=== PATIENT | male | born 1995 | race African-American/Black ===

== ENCOUNTER 2018-09-08 19:10 | Inpatient (IN) | payer OTHER ==
[~2018-09-08] VITALS: Ht 180.3 cm; Wt 46.3 kg
[2018-09-08 22:30] VITALS: BP 102/81
--- NOTE | 2018-09-08 22:30 | NUR ---
RECEIVED PATIENT FROM [facility], REPORT FROM GÉNESIS RICHARDSON. PATIENT IS AWAKE, ALERT, ORIENTED X 4, HAS ALLERGIES TO MILK, MELONS, AND ONIONS. PATIENT IS BEDBOUND, ON ROOM AIR, HAS RIGHT IJ TRIPLE LUMEN, PATIENT CAN SWALLOW BUT HAS VERY POOR APPETITE. PATIENT HAS BILATERAL LOWER EXTREMITY OPEN WOUNDS PHOTOS ARE TAKEN AND CHARTED, PERITONEAL ABSCESS/SACRAL WOUNDS (PATIENT REFUSED TO BE TURNED FOR PHOTOS DT SEVERE PAIN), HAS LEFT ABDOMINAL COLOSTOMY, RIGHT BELOW KNEE AMPUTATION, ISOLATION FOR POSITIVE MDRO IN WOUNDS, RECTUM; PSUDOMONAS IN SPUTUM AND WOUND. VITAL SIGNS ARE: BP 102/81, HR 151, T 98, O2 98%, RR 19. PATIENT COMPLAINS OF GENERALIZED BODY PAIN, MOSTLY ON LEGS /. WILL NOTIFY MD FOR FURTHER ORDERS, AND WILL MONITOR PATIENT THROUGHOUT SHIFT.
--- NOTE | 2018-09-08 23:12 | NUR ---
RECEIVED TELEPHONE ORDERS FROM DR. GREEN, ORDERED AND IMPLEMENTED. ADMINISTERED IV PUSH PAIN MEDICATION ORDERED, PATIENT TOLERATED IT WELL. PATIENT IS TO BE NPO AFTER MIDNIGHT. TPN INFUSION IS BEING CONTINUED USING THE TPN BAG FROM [facility]. PER MOTHER'S CONCERN, IF PATIENT DOES NOT GET TPN, BLOOD SUGAR GOES DOWN THE PATIENT HAS VERY POOR APPETITE. CHECKED BLOOD SUGAR - 97. WILL CONTINUE TO MONITOR PATIENT.
[2018-09-08] MEDS ORDERED: HYDROmorphone PFS 2 MG/ML SYR ONE (23:20)
[2018-09-09] MEDS ORDERED: HYDROmorphone PFS 4 MG/ML SYR IVP PRN (01:10)
[2018-09-09] MEDS ORDERED: HYDROmorphone PFS 2 MG/ML SYR ONE (01:32)
--- NOTE | 2018-09-09 01:33 | NUR ---
PATIENT COMPLAINS OF BLE PAIN 10/19. ADMINISTERED IV PUSH PAIN MEDICATION ORDERED. PATIENT TOLERATED IT WELL.
--- NOTE | 2018-09-09 03:34 | NUR ---
PATIENT WOKE UP FROM SEVERE BODY PAIN 10/19. ADMINISTERED IV PUSH PAIN MEDICATION ORDERED. WILL CONTINUE TO MONITOR PATIENT.
[2018-09-09] MEDS: HYDROmorphone PFS 2 MG/ML SYR IVP PRN ×4 (03:35→10:30)
[2018-09-09] MEDS: NACL 0.9% 1,000 ML IV SCH ×2 (03:38→22:58)
[2018-09-09] MEDS ORDERED: [UNRECOGNIZED DRUG - CODE] IV (04:39)
--- NOTE | 2018-09-09 05:48 | NUR ---
PATIENT COMPLAINS OF SEVERE BODY PAIN 10/10. ADMINISTERED IV PUSH PAIN MEDICATION ORDERED. PATIENT'S O2 SATURATION IS 98%, RR 16. WILL CONTINUE TO MONITOR PATIENT.
[2018-09-09] MEDS: BLOOD GLUCOSE MONITORING 1 DEV DEV FS SCH ×3 (06:00→18:51)
[2018-09-09] MEDS ORDERED: INSULIN LISPRO SLIDING SCALE 100 UNITS/ML VIAL SUBQ PRN (06:05)
[2018-09-09] MEDS ORDERED: DEXTROSE 50% 50 ML SYR IVP PRN (06:05)
[2018-09-09 07:17] LABS: PROTHROMBIN TIME 10.9 secs (10.8-13.4)
[2018-09-09 07:24] LABS: HEMATOCRIT 27.7 % (36-52); HEMOGLOBIN 8.9 g/dL (12.0-18.0); MEAN CORPUSCULAR HEMOGLOBIN 28 pg (27-31); MEAN CORPUSCULAR HGB CONC 32 g/dL (33-37); MEAN CORPUSCULAR VOLUME 87.2 fL (80-94); PLATELET COUNT (AUTO) 464 K/uL (140-450); RED BLOOD CELL COUNT(AUTO) 3.18 MIL/uL (4.20-6.10); RED CELL DISTRIBUTION WIDTH 17.1 % (11.6-13.7); WHITE BLOOD COUNT (AUTO) 8.9 K/uL (4.8-10.8)
[2018-09-09 07:27] LABS: ALBUMIN 1.3 g/dL (3.4-5.0); ANION GAP 11.4 (8-16); CARBON DIOXIDE 25.7 mmol/L (21-32); CREATININE 0.8 mg/dL (0.7-1.3); POTASSIUM 4.1 mmol/L (3.5-5.1); TOTAL BILIRUBIN 0.2 mg/dL (0.0-1.0)
--- NOTE | 2018-09-09 07:30 | NUR ---
RECEIVED BEDSIDE REPORT FROM GÉNESIS RAMIREZ. PT STABLE, AWAKE, ALERT AND ORIENTED X4. PT COMPLAINING OF BLE PAIN, WILL ADMINISTER MEDICATION. NO REDNESS, SWELLING, OR INFLAMMATION NOTED ON IV SITE. CALL CONN WITHIN REACH. BED IN LOWEST POSITION. MOTHER AT THE BEDSIDE. SAFETY MEASURES IN PLACE. PLAN OF CARE REVIEWED. PER PM RN, PT REFUSED TO BE TURNED. WILL CONTINUE TO MONITOR.
--- NOTE | 2018-09-09 07:30 | NUR ---
CALLED AND NOTIFIED DR. MARTIN RE: MEDICATION RECONCILIATION. PER MD, CONTINUE TPN, AND PAIN MEDICATIONS, WILL DO MED RECON DURING VISIT. ENDORSED TO AM SHIFT RNNAVYA.
[2018-09-09 08:00] VITALS: BP 107/56
--- NOTE | 2018-09-09 08:19 | NUR ---
ADMINISTERED PRN DILAUDID FOR PT C/O 10/10 BLE PAIN. PT TOLERATED WELL. WILL CONTINUE TO MONITOR.
--- NOTE | 2018-09-09 08:29 | NUR ---
PATIENT HAS BEEN SCREENED AND CATEGORIZED HIGH NUTRITION RISK. PATIENT WILL BE SEEN WITHIN 1-2 DAYS OF ADMISSION. 09/09/18-09/10/[address]
[2018-09-09 09:02] LABS: LYMPHOCYTES % (MANUAL) 18 % (20-46); MONOCYTES % (MANUAL) 17 % (5-12)
[2018-09-09 09:03] LABS: BASOPHILS % (MANUAL) 0 % (0-2); EOSINOPHILS % (MANUAL) 0 % (0-4)
--- NOTE | 2018-09-09 09:08 | NUR ---
RECEIVED TELEPHONE ORDER FROM DR CAICEDO TO OBTAIN CONSENT FOR DRESSING CHANGE OF RIGHT AND LEFT LOWER LEG WOUNDS UNDER ANESTHESIA.
--- NOTE | 2018-09-09 10:31 | NUR ---
ADMINISTERED PRN DILAUDID FOR 10/10 BLE PAIN. PT TOLERATED WELL. WILL CONTINUE TO MONITOR.
--- NOTE | 2018-09-09 10:41 | NUR ---
RECEIVED SURGICAL CONSENT FROM PT'S MOTHER. Addendum: 09/09/18 at 1104 by Abrahan Ibarra RN MOTHER, AAMIR.
--- NOTE | 2018-09-09 12:35 | NUR ---
PT WAS TAKEN TO THE OR FOR DRESSING CHANGE.
[2018-09-09] MEDS ORDERED: PROPOFOL 200 MG/20 ML VIAL IV ONE (12:43)
[2018-09-09] MEDS ORDERED: SEVOFLURANE 250 ML BTL INH ONE (12:43)
[2018-09-09] MEDS ORDERED: MEPERIDINE 50 MG/ML SYR ONE ×2 (12:56→13:39)
[2018-09-09] MEDS ORDERED: fentaNYL 0.05 MG/ML VIAL ONE (12:56)
[2018-09-09] MEDS ORDERED: MIDAZOLAM 2 MG/2 ML VIAL ONE (12:56)
[2018-09-09] MEDS: LACTATED RINGERS 1,000 ML IV SCH ×2 (13:17→21:51)
[2018-09-09] MEDS ORDERED: HYDROmorphone 1 MG/ML AMP IVP PRN (13:20)
[2018-09-09] MEDS ORDERED: MEPERIDINE 25 MG/ML SYR IVP PRN (13:20)
[2018-09-09] MEDS ORDERED: diphenhydrAMINE 50 MG/ML VIAL IVP PRN (13:20)
[2018-09-09] MEDS ORDERED: ONDANSETRON 4 MG/2 ML VIAL IVP PRN (13:20)
--- NOTE | 2018-09-09 13:29 | NUR ---
SW attempted to conduct assessment with patient. However, per nursing staff, patient was in operating room. SW will follow up at a later time.
--- NOTE | 2018-09-09 13:40 | NUR ---
RECEIVED TELEPHONE DISCHARGE ORDER FROM DR GAO. WILL PUT IN ORDER. Addendum: 09/09/18 at 1505 by Abrahan Ibarra RN THIS DOCUMENTATION IS FOR ANOTHER PATIENT.
--- NOTE | 2018-09-09 14:20 | NUR ---
PT CAME BACK FROM OR. VITAL SIGNS TAKEN, PT STABLE. NO SIGNS OF DISTRESS NOTED. MOTHER AT THE BEDSIDE.
[2018-09-09 16:00] VITALS: BP 95/53
--- NOTE | 2018-09-09 16:20 | NUR ---
VITAL SIGNS TAKEN, PT STABLE. NO OTHER NEEDS AT THIS TIME.
--- NOTE | 2018-09-09 16:35 | NUR ---
09/09/18 RD INITIAL ASSESSMENT COMPLETED PLEASE REFER TO NUTRITION ASSESSMENT UNDER CARE ACTIVITY FOR ESTIMATED NUTRITIONAL NEEDS. 1.CONTINUE TPN AND REGULAR DIET TOLERATED 2. RECOMMEND ADDING PROSOURCE WITH MEALS 3. ENCOURAGED PT TO REQUEST FOOD DESIRED TO INCREASE ENERGY INTAKE 4. RD TO FOLLOW-UP 2-3 DAYS, HIGH RISK ALEXEI JOHNSTON, RD
--- NOTE | 2018-09-09 18:00 | NUR ---
BG CHECKED, 94, NO COVERAGE NEEDED. BP RECHECKED, 97/57, HR 116. OFFERED PATIENT NORCO FOR PAIN, PT REFUSED. WILL CONTINUE TO MONITOR.
--- NOTE | 2018-09-09 19:15 | NUR ---
ENDORSED PT TO RN MAY FOR CONTINUITY OF CARE. PT STABLE.
--- NOTE | 2018-09-09 19:16 | NUR ---
RECEIVED REPORT FROM AM NURSE. PT IN BED, AWAKE, ALERT AND ORIENTED. VISIBLE CHEST RISE AND FALL ON ROOM AIR. PT ABLE TO ANSWER QUESTIONS AND FOLLOW COMMANDS. PT STATING 8/10 PAIN LEVEL. BP 94/53, CANNOT ADMINISTER DILAUDID AT THIS TIME DUE TO BP. WILL CONTINUE TO MONITOR BP. RIGHT IJ TRIPLE LUMEN INTACT AND INFUSING WELL. DRESSING ON BILATERAL LOWER EXTREMITIES INTACT. MOTHER AT BEDSIDE. FALL PRECAUTIONS IN PLACE. CALL LIGHT WITHIN REACH. WILL CONTINUE TO MONITOR.
--- NOTE | 2018-09-09 21:20 | NUR ---
BP REASSESSED. 98/56 AT THIS TIME. PT ASKED IF HE WOULD LIKE THE NURSE TO CALL AND ASK FOR A DIFFERENT PAIN MED. PT REFUSED STATING "I'LL WAIT FOR THE DILAUDID." WILL CONTINUE TO MONITOR.
[2018-09-09] MEDS: ONDANSETRON 4 MG/2 ML VIAL IVP PRN (22:57)
--- NOTE | 2018-09-09 22:57 | NUR ---
ZOFRAN GIVEN FOR NAUSEA
[2018-09-09] MEDS ORDERED: ACETAMINOPHEN 325 MG TAB PO PRN (23:30)
[2018-09-09] MEDS: KETOROLAC 30 MG/ML VIAL IVP PRN (23:54)
--- NOTE | 2018-09-09 23:54 | NUR ---
TORADOL GIVEN FOR PAIN MANAGEMENT.
[2018-09-10] VITALS: BP 91/50
[2018-09-10] MEDS: BLOOD GLUCOSE MONITORING 1 DEV DEV FS SCH ×4 (00:50→18:03)
--- NOTE | 2018-09-10 00:50 | NUR ---
BP REASSESSED 82/44, HR 139.
--- NOTE | 2018-09-10 01:15 | NUR ---
SPOKE WITH DR. GAO REGARDING PT BP. ORDERS GIVEN FOR 1L FLUID BOLUS. WILL REASSESS BP.
--- NOTE | 2018-09-10 01:30 | NUR ---
1L BOLUS STARTED WILL REASSESS BP AT COMPLETION.
[2018-09-10] MEDS ORDERED: VANCOMYCIN PER PHARMACY MC PRN (01:35)
[2018-09-10] MEDS ORDERED: NACL 0.9% 1,000 ML IV SCH (02:00)
[2018-09-10] MEDS ORDERED: VANCOMYCIN 1GM/DEXT 5% PREMIX 200 ML IV ONE (02:00)
--- NOTE | 2018-09-10 02:30 | NUR ---
REASSESSED BP 79/37, HR 112. PAGED DR. GAO, AWAITING CALL BACK.
--- NOTE | 2018-09-10 02:50 | NUR ---
REASSESSED BP WITH SMALLER CUFF, 91/70 ORDERS GIVEN TO START ALBUMIN 25% Addendum: 09/10/18 at 0505 by Brianna Rowell RN VANDANA MAX, BP 93/70
[2018-09-10] MEDS ORDERED: VANCOMYCIN 1,000 MG VIAL ONE (03:00)
--- NOTE | 2018-09-10 03:15 | NUR ---
ORDERS GIVEN TO GIVE 2ND 1L BOLUS
[2018-09-10] MEDS ORDERED: ALBUMIN HUMAN 25% 50 ML IV ONE (03:50)
[2018-09-10] MEDS ORDERED: ALBUMIN HUMAN 25% 100 ML IV SCH (04:00)
--- NOTE | 2018-09-10 04:20 | NUR ---
BOLUS ENDED. REASSESSED BP 93/45
--- NOTE | 2018-09-10 04:36 | NUR ---
ALBUMIN STARTED. BP REASSESSED 91/41 AT THIS TIME.
--- NOTE | 2018-09-10 05:01 | NUR ---
SPOKE WITH DR. GAO, PER MD CONTINUE BP OBSERVATION AND CONTINUE ALBUMIN ADMINISTRATION.
[2018-09-10] MEDS ORDERED: NACL 0.9% 1,000 ML IV ONE (05:30)
[2018-09-10] MEDS: LACTATED RINGERS 1,000 ML IV SCH (05:51)
[2018-09-10] MEDS: PIPERACILLIN/TAZOBACTAM 3.375 GM in DEXTROSE 5% 50 ML IV SCH ×3 (06:00→17:43)
--- NOTE | 2018-09-10 06:15 | NUR ---
DR GAO STOPPED BY TO SEE PT. BP REASSESSED
--- NOTE | 2018-09-10 07:15 | NUR ---
RECEIVED BEDSIDE REPORT FROM RN MAY. PT STABLE, AWAKE, ALERT AND ORIENTED X4. PT COMPLAINING OF BLE PAIN, WILL ADMINISTER MEDICATION. NO REDNESS, SWELLING, OR INFLAMMATION NOTED ON IV SITE. CALL CONN WITHIN REACH. BED IN LOWEST POSITION. MOTHER AT THE BEDSIDE. SAFETY MEASURES IN PLACE. PLAN OF CARE REVIEWED. PT STILL REFUSES TO BE TURNED. WILL CONTINUE TO MONITOR.
[2018-09-10] MEDS: KETOROLAC 30 MG/ML VIAL IVP PRN (07:45)
--- NOTE | 2018-09-10 07:45 | NUR ---
ADMINISTERED PRN TORADOL FOR 10/10 BLE PAIN. PT TOLERATED WELL. WILL CONTINUE TO MONITOR.
[2018-09-10 08:00] VITALS: BP 102/61
--- NOTE | 2018-09-10 08:03 | NUR ---
PAGED DR MARTIN.
--- NOTE | 2018-09-10 08:35 | NUR ---
BP RECHECKED, 92/43, HR 105. PT IS CALM AND RESTING IN BED. WILL CONTINUE TO MONITOR.
--- NOTE | 2018-09-10 08:45 | NUR ---
CALLED PHARMACY REGARDING TORADOL. PER PHARMACY, TORADOL WILL START TAKING EFFECT WITHIN 30 MINUTES, WITH PEAK OF 2-3 HOURS. EXPLAINED TO PT'S MOTHER THAT DILAUDID IS NOT SAFE TO BE ADMINISTERED DUE TO PT'S BP OF 92/43 AND THAT TORADOL WILL HAVE PEAK EFFECT IN 2-3 HOURS PER PHARMACY. MOTHER VERBALIZED UNDERSTANDING. WILL CONTINUE TO MONITOR.
[2018-09-10 09:24] LABS: ANION GAP 9.9 (8-16); CARBON DIOXIDE 24.5 mmol/L (21-32); CREATININE 0.7 mg/dL (0.7-1.3); POTASSIUM 3.4 mmol/L (3.5-5.1)
--- NOTE | 2018-09-10 09:46 | NUR ---
PT STABLE, RESTING IN BED, NO FACIAL GRIMACING AND SIGNS OF DISTRESS NOTED. MOTHER AT THE BEDSIDE. WILL CONTINUE TO MONITOR.
--- NOTE | 2018-09-10 09:53 | NUR ---
PAGED DR GAO.
[2018-09-10] MEDS ORDERED: TPN PER PHARMACY MC PRN (09:58)
[2018-09-10] MEDS ORDERED: HYDROmorphone 1 MG/ML AMP IVP PRN (09:58)
--- NOTE | 2018-09-10 09:58 | NUR ---
MADE DR GAO AWARE THAT TORADOL IS NOT EFFECTIVE FOR PAIN PER PT AND PT'S MOTHER. RECEIVED TELEPHONE ORDERS FROM DR GAO FOR TPN WITH LIPIDS, DILAUDID 1MG ONCE, AND FENTANYL PATCH 25MCG [id number]. WILL PUT IN ORDER. PER DR GAO, IF SBP STAYS GREATER THAN 90 MMHG AFTER ADMINISTERING 1MG DILAUDID, PRN DILAUDID 3MG CAN BE CONTINUED SAFELY. ALSO RECEIVED ORDER FOR PROSOURCE. MADE DELVIN FROM PHARMACY AWARE. PER DELVIN, PROSOURCE CANNOT BE ADMINISTERED WITH TPN. WILL LET DR GAO KNOW.
[2018-09-10] MEDS: VANCOMYCIN HCL 750 MG in DEXTROSE 5% 250 ML IV SCH ×2 (10:01→18:31)
--- NOTE | 2018-09-10 10:01 | NUR ---
ADMINISTERED SCHEDULED VANCOMYCIN, PT TOLERATED WELL. NO OTHER NEEDS AT THIS TIME.
--- NOTE | 2018-09-10 10:10 | NUR ---
SPOKE TO PT. MOTHER. AND PRIMARY RN WITH PLAN OF CARE, WILL VISIT PT. AGAIN ONCE BLOOD PRESSURE AND PAIN MANAGEMENT IN PLACE. PT. AND MOTHER AGREE WITH IT.
--- NOTE | 2018-09-10 10:20 | NUR ---
WOUND CARE NURSE AT THE BEDSIDE. PT ENCOURAGED TO TURN TO ASSESS DECUBITUS ULCER, PT REFUSED.
--- NOTE | 2018-09-10 10:43 | NUR ---
PAGED DR. CAICEDO AND PLACE A CALL TO DR. CAICEDO'S OFFICE SPOKE TO RADHA TO CALL BACK TO [facility] REGARDING BLE WOUNDS WITH SKIN GRAFT.
--- NOTE | 2018-09-10 10:56 | NUR ---
ADMINISTERED 1MG DILAUDID PER DR GAO'S ORDER AND SCHEDULED FENTANYL PATCH. PT TOLERATED WELL. WILL CONTINUE TO MONITOR.
[2018-09-10] MEDS ORDERED: fentaNYL 0.025 MG/HR PATCH TD SCH (11:00)
--- NOTE | 2018-09-10 11:05 | NUR ---
ENCOURAGED PT TO TURN, PT REFUSED. WILL CONTINUE TO MONITOR.
[2018-09-10 11:44] LABS: ALBUMIN 1.4 g/dL (3.4-5.0); MAGNESIUM 1.4 mg/dL (1.8-2.4); PHOSPHORUS 3.5 mg/dL (2.5-4.9); TOTAL BILIRUBIN 0.2 mg/dL (0.0-1.0)
--- NOTE | 2018-09-10 12:29 | NUR ---
ADMINISTERED SCHEDULED ZOSYN, PT TOLERATED WELL. NO OTHER NEEDS AT THIS TIME.
[2018-09-10] MEDS: HYDROmorphone PFS 2 MG/ML SYR IVP PRN ×5 (13:03→22:23)
--- NOTE | 2018-09-10 13:05 | NUR ---
ADMINISTERED PRN DILAUDID 3MG FOR 10/10 BLE PAIN PER MD ORDER. PT TOLERATED WELL. WILL CONTINUE TO MONITOR.
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
--- NOTE | 2018-09-10 14:20 | NUR ---
PAGED DR GAO.
--- NOTE | 2018-09-10 14:25 | NUR ---
MADE DR GAO AWARE OF PT'S MAGNESIUM 1.4 AND POTASSIUM 3.4. RECEIVED TELEPHONE ORDERS FOR 2GM MAGNESIUM SULFATE IV ONCE AND KCL 40MEQ WITH LIDOCAINE IV ONCE. WILL PUT IN ORDER.
--- NOTE | 2018-09-10 14:37 | NUR ---
CONTACTED [facility] AT [phone], INFORMED HER OF PATIENT FOR TRANSFER TO HIGHER LEVEL OF CARE FOR NON HEALING WOUNDS. SHE STATED JUST FAX THE CLINICALS AND WILL GIVE AUTH ONCE BED IS AVAILABLE. CONTACTED [facility] TRANSFER [place] AT [phone], SPOKE TO MAN. SHE PROVIDED ME OF FAX NUMBER [phone] TO SEND ALL CLINICALS. ALL CLINICALS FAXED TO THE PROVIDED NUMBER CONTACTED [facility] AT [phone], SPOKE TO AMOR. SHE PROVIDED ME OF FAX NUMBER [phone] TO SEND CLINICALS. ALL CLINICALS FAXED.
--- NOTE | 2018-09-10 14:51 | NUR ---
PER MAN, TRANSFER CENTER [facility], NO BED AVAILABLE AT THIS TIME. SHE STATED SHE WILL CHECK AGAIN IN 4 HOURS. Addendum: 09/10/18 at 1456 by Nellie Welch PROVIDED WITH [employer] MECHANIC'S AND UNIT'S PHONE NUMBERS TO CONTACT IN CASE BED IS AVAILABLE.
[2018-09-10] MEDS ORDERED: MAG SULF 2000 MG/WATER PREMIX 50 ML IV SCH (15:00)
--- NOTE | 2018-09-10 15:21 | NUR ---
ADMINISTERED PRN DILAUDID FOR 10/10 BLE PAIN. PT TOLERATED WELL. WOUND CARE NURSE DEMETRA AT THE BEDSIDE. PT REFUSED WOUND CARE FOR TODAY AND REFUSES TO BE TURNED. WILL CONTINUE TO MONITOR.
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
--- NOTE | 2018-09-10 15:28 | NUR ---
RECEIVED A VOICEMAIL FROM [facility]. CALL RETURNED SPOKE TO AMOR, SHE STATED THAT THEY RECEIVED A REFERRAL FROM [facility] LAST August AND THEY WERE NOT ABLE TO ACCEPT THE PATIENT DUE TO NO ACCEPTING PHYSICIAN.
--- NOTE | 2018-09-10 15:31 | NUR ---
09/10/18 RD RECOMMENDATIONS: 1. RECOMMEND RODRIGUEZ TID WITH MEALS FOR WOUNDS 2. CONTINUE TPN 3. CONTINUE REGULAR DIET ALEXEI JOHNSTON RD
--- NOTE | 2018-09-10 15:50 | NUR ---
ADMINISTERED SCHEDULED MAGNESIUM SULFATE. PT TOLERATED WELL.
[2018-09-10 16:00] VITALS: BP 93/42
[2018-09-10] MEDS ORDERED: ALTEPLASE 2 MG VIAL MC SCH (16:00)
--- NOTE | 2018-09-10 16:20 | NUR ---
PER DI MCCABE, [facility] AUTHORIZATION IS [id number]
--- NOTE | 2018-09-10 16:25 | NUR ---
CONTACTED [facility] [phone], SPOKE TO JUAN (TRANSFER CENTER). NO FILLER SHREDDER AVAILABLE AT THIS TIME.
--- NOTE | 2018-09-10 16:44 | NUR ---
ADMINISTERED ALTEPLASE PER MD ORDER. WILL CONTINUE TO MONITOR LINES.
--- NOTE | 2018-09-10 17:58 | NUR ---
ADMINISTERED SCHEDULED KCL AND ZOSYN PER MD ORDER. PT TOLERATED WELL. BG CHECKED, 62. PT GIVEN ORANGE JUICE. WILL CONTINUE TO MONITOR.
[2018-09-10] MEDS ORDERED: POTASSIUM CHLORIDE 40 MEQ, LIDOCAINE MPF 1% 25 MG in NACL 0.9% 250 ML IV SCH (18:00)
--- NOTE | 2018-09-10 18:45 | NUR ---
BG RECHECKED, 79. WILL CONTINUE TO MONITOR.
--- NOTE | 2018-09-10 19:18 | NUR ---
RECEIVED REPORT FROM BURT MENDOSA RN DAYSHIFT NURSE AT BEDSIDE FOR CONTINUITY OF CARE, PT IN STABLE CONDITION.
--- NOTE | 2018-09-10 19:19 | NUR ---
ENDORSED PT TO GÉNESIS DAWN FOR CONTINUITY OF CARE. PT STABLE.
[2018-09-10] MEDS: NACL 0.9% 1,000 ML IV SCH ×2 (19:30→22:47)
--- NOTE | 2018-09-10 20:00 | NUR ---
PT IN BED ALL FALLS PRECAUTIONS IN PLACE. PT AOX4 WITH RIJ INTACT WITH TRIPLE LUMEN. PT STILL RUNNING POTASSIUM AND VANCOMYCIN RUNNING. PT C/O SEVERE PAIN AND WAS GIVEN ORDERED DILAUDID 3MG IVP. PT HAD FULL TRAY OF FOOD BUT SAID THAT HE WAS FULL AND DIDN'T WANT TO EAT. PT DRESSING ON LEFT LEG NOTED WITH DISCHARGE BUT PT DOESN'T WANT IT TO BE CHANGED DUE TO PAIN. PT ASLO REFUSED TO TURN TO TURN DUE TO PAIN. PT STARTED RUNNING TPN AT 40, PER ORDERED. WILL MONITOR FOR PAIN RELIEF AND TOLERANCE OF TPN.
--- NOTE | 2018-09-10 21:00 | NUR ---
PT TOLERATING TPN WELL. FAMILY AT BEDSIDE. PT CONCERNED ABOUT THE TRANSFER. TOLD PT THAT I WILL KEEP HIM UPDATED I KNOW WHEN THE TRANSFER WILL BE. V/S FOLLOWS T 99.4 P 124 R 20 B/P 93/40 02 99% ON ROOM AIR. ALL FALLS AND CONTACT PRECAUTIONS IN PLACE.
[2018-09-10] MEDS: ONDANSETRON 4 MG/2 ML VIAL IVP PRN (22:24)
--- NOTE | 2018-09-10 22:25 | NUR ---
PT IN BED WITH ALL FALLS AND CONTACT PRECAUTIONS IN PLACE. PT C/O SEVERE PAIN AND WAS GIVEN IVP DILAUDID ORDERED. PT ALSO C/O NAUSEA WHICH HE SAID HAPPENS WHEN HE GETS ANXIOUS. PT GIVEN BAG IF HE DOES VOMIT AND IVP ZOFRAN ORDERED FOR NAUSEA. N/S FLUID BAG REPLACED. PT ASKED IF HE WAS FEELING NAUSEA FORM TPN OR ANXIETY, PT SAID HE GETS NAUSEA SOMETIMES WITH ANXIETY. TPN RATE INCREASED PER ORDER.
[2018-09-10] MEDS: MULTIVITAMIN IV SCH ×4 (22:47)
[2018-09-10] MEDS: AMINO ACIDS IV SCH ×4 (22:47)
[2018-09-10] MEDS: [UNRECOGNIZED DRUG - OTHER] IV SCH ×4 (22:47)
[2018-09-10] MEDS: DEXTROSE IV SCH ×4 (22:47)
--- NOTE | 2018-09-10 23:13 | NUR ---
SPOKE WITH HATTIE FROM TRANSFER CENTER FOR . HE SAID OF NOW THEY DO HAVE AN ISOLATION BED, BUT THEY WOULD LIKE TO HAVE ADMITTING MD SPEAK WITH DAI ADMITTING MD REGARDING PT POC. DUE TO PRIMARY MD IS HERE ON DAYS, THEY WILL CALL BACK IN THE EARLY AM TO COORDINATE TRANSFER.
[2018-09-11] VITALS (7 sets, daily range): BP systolic 90–101; BP diastolic 41–60
[2018-09-11] MEDS: HYDROmorphone PFS 2 MG/ML SYR IVP PRN ×11 (00:35→23:03)
--- NOTE | 2018-09-11 00:40 | NUR ---
PT IN BED, C/O OF 10/10 GENERALIZED PAIN, PT GIVEN DILAUDID IVP PRN FOR SEVERE PAIN. PT DRESSINGS SOAKED WITH SEROSANGUINEOUS DRAINAGE, HOWEVER PT REFUSES TO HAVE THEM DRESSED DUE TO PAIN. PT ENCOURAGED TO HAVE DRESSING DONE RIGHT AFTER PAIN MEDICATION AND PT REFUSES. PT ALSO DECLINES TO TURN AND OR HAVE COLONOSCOPY BAG EMPTIED. PT SAID THAT IT S NOT FULL ENOUGH TO DRAIN IT YET. PT ALSO HAS HEATING PAD ON HIS CHEST. V/S FOLLOWS T 100.5 P 124R 20 B/P 94/55 02 98% ON ROOM AIR.
--- NOTE | 2018-09-11 00:45 | NUR ---
PT DECLINES TYLENOL FOR ELEVATED TEMP, PT SAID THAT IT WAS PROBABLY DUE TO HEATING PAD AND PT TURNED DOWN HEAT ON HEATING PAD. WILL CONTINUE TO MONITOR FOR TEMP AND PAIN.
[2018-09-11] MEDS: BLOOD GLUCOSE MONITORING 1 DEV DEV FS SCH ×5 (00:55→20:35)
[2018-09-11] MEDS: PIPERACILLIN/TAZOBACTAM 3.375 GM in DEXTROSE 5% 50 ML IV SCH ×5 (00:56→23:03)
--- NOTE | 2018-09-11 02:00 | NUR ---
RETAKE OF TEMP IS 99.8.
--- NOTE | 2018-09-11 02:35 | NUR ---
PT IN BED C/O SEVERE GENERALIZED PAIN, PT GIVEN 3MG DILAUDID IVP. PT REFUSED TO TURN OR CHANGE. WILL MONITOR FOR PAIN RELIEF.
--- NOTE | 2018-09-11 03:00 | NUR ---
PT C/O SEVERE PAIN GIVEN DILAUDID IVP /PRN FOR SEVERE PAIN. PT DECLINED ANY OTHER CARE.
[2018-09-11] MEDS: VANCOMYCIN HCL 750 MG in DEXTROSE 5% 250 ML IV SCH ×2 (03:09→10:09)
--- NOTE | 2018-09-11 05:05 | NUR ---
PT C/O OF SEVERE PAIN AND WAS GIVEN DILAUDID IVP PRN FOR SEVERE PAIN.
--- NOTE | 2018-09-11 06:25 | NUR ---
PT C/O MODERATE PAIN 07/19 , PT REQUESTED DILAUDID BUT IT IS NOT DUE AT THIS TIME. PT TOOK IVP TORADOL TO DECREASE PAIN.
[2018-09-11] MEDS: KETOROLAC 30 MG/ML VIAL IVP PRN (06:41)
--- NOTE | 2018-09-11 07:10 | NUR ---
PT GIVEN IVP DILAUDID FOR C/O OF SEVERE PAIN. WILL ENDORSE CARE TO AM SHIFT.
--- NOTE | 2018-09-11 07:30 | NUR ---
RECEIVED BEDSIDE REPORT FROM GÉNESIS DAWN. PT STABLE, AWAKE, ALERT AND ORIENTED X4. NO SIGNS OF DISTRESS NOTED. DENIES PAIN OR SOB. NO REDNESS, SWELLING, OR INFLAMMATION NOTED ON IV SITE. CALL CONN WITHIN REACH. BED IN LOWEST POSITION. MOTHER AT THE BEDSIDE. SAFETY MEASURES IN PLACE. PLAN OF CARE REVIEWED. PT REFUSED TO BE TURNED. WILL CONTINUE TO MONITOR.
--- NOTE | 2018-09-11 08:05 | NUR ---
PT REFUSED TO BE TURNED, INSTRUCTED PT REGARDING THE CONSEQUENCES OF NOT TURNING Q2H. WILL CONTINUE TO MONITOR.
--- NOTE | 2018-09-11 09:38 | NUR ---
BP RECHECKED, 91/47. ADMINISTERED PRN DILAUDID FOR C/O 10/10 BLE PAIN. PT TOLERATED WELL. WILL CONTINUE TO MONITOR.
--- NOTE | 2018-09-11 09:50 | NUR ---
CALLED LAB TO FOLLOW UP REGARDING PT'S VANCO THROUGH. PER LAB, NOT AVAILABLE YET AT THIS TIME. WILL ADMINISTER SCHEDULED VANCOMYCIN WHEN VANCO THROUGH IS AVAILABLE.
[2018-09-11 09:51] LABS: ANION GAP 8.6 (8-16); CARBON DIOXIDE 25.2 mmol/L (21-32); CREATININE 0.8 mg/dL (0.7-1.3); POTASSIUM 3.8 mmol/L (3.5-5.1)
[2018-09-11 09:55] LABS: MAGNESIUM 1.6 mg/dL (1.8-2.4); PHOSPHORUS 3.5 mg/dL (2.5-4.9)
--- NOTE | 2018-09-11 10:09 | NUR ---
RECEIVED CALL FROM GUY FROM LAB, TALAT TROUGH IS 25.6. SCHEDULED VANCOMYCIN HELD PER PARAMETERS.
--- NOTE | 2018-09-11 10:15 | NUR ---
RECEIVED A CALL FROM BRITTNY, [facility] TRANSFER CENTER COORDINATOR ASKING FOR PT'S ATTENDING DOCTOR CONTACT INFORMATION. GAVE DR. GREEN'S [facility] EXCHANGE NUMBER. BRITTNY STATED SHE WILL CONTACT ME AGAIN IF THEY ACCEPTED PT.
--- NOTE | 2018-09-11 10:30 | NUR ---
ENCOURAGED PT TO TURN, PT REFUSED. WILL CONTINUE TO MONITOR.
--- NOTE | 2018-09-11 11:49 | NUR ---
ADMINISTERED PRN DILAUDID FOR 10/10 BLE PAIN AND SCHEDULED ZOSYN. PT TOLERATED WELL. NO OTHER NEEDS AT THIS TIME.
--- NOTE | 2018-09-11 12:01 | NUR ---
RECHECKED PT'S BP, 101/59, HR 105. MOTHER AT THE BEDSIDE. ENCOURAGED PT TO TURN. MOTHER AGREES, BUT PT IS REFUSING. WILL CONTINUE TO MONITOR.
--- NOTE | 2018-09-11 13:50 | NUR ---
BP CHECKED, 94/43, HR 110. ADMINISTERED PRN DILAUDID FOR 10/10 BLE PAIN. PT TOLERATED WELL. WILL CONTINUE TO MONITOR.
--- NOTE | 2018-09-11 14:00 | NUR ---
PT REFUSED WOUND CARE AND ASSESSMENT. ENCOURAGED PT TO TURN TO THE SIDE, PT REFUSED. WILL CONTINUE TO MONITOR.
--- NOTE | 2018-09-11 14:27 | NUR ---
09/11/18 RD FOLLOW UP COMPLETED PLEASE REFER TO NUTRITION ASSESSMENT UNDER CARE ACTIVITY FOR ESTIMATED NUTRITIONAL NEEDS. 1. CONTINUE REGULAR DIET TOLERATED. 2. CONTINUE TPN D10 AA4.25 W/20% IL AT GOAL RATE 65ML/HR. 3. RECOMMENDED TO ADD PROSOURCE TID W/MEALS FOR WOUND HEALING SUPPORT. 3. RD TO FOLLOW-UP 2-3 DAYS, HIGH RISK REINA JEWELL RD
--- NOTE | 2018-09-11 15:39 | NUR ---
FOLLOW UP [facility] TRANSFER CENTER, SPOKE WITH BRYCE. SHE STATED THAT PT IS NOT ACCEPTED YET, PER BRYCE, THEY DO NOT HAVE A BED AND NO STAFF YET, IF THEY DO THEY WILL GIVE US A CALL AFTER 1900 HRS TONIGHT. BURT MENDOSA-GÉNESIS ASSIGNED MADE AWARE.
--- NOTE | 2018-09-11 15:50 | NUR ---
PAGED DR DOBSON.
--- NOTE | 2018-09-11 15:50 | NUR ---
CALLED DR. CAICEDO REGARDING PT'S DRESSING CHANGE AND THAT PT DOES NOT WANT TO BE TURNED AND DOES NOT WANT DRESSING CHANGE WITHOUT ANESTHESIA. PER DR. CAICEDO HE IS PLANNING TO DO IT ON THURSDAY UNDER GA. UP DATED DR. CAICEDO REGARDING THE TRANSFER TO [facility] STATUS THAT THERE IS NO BED AVAILABLE YET. DR. CAICEDO SUGGESTED TO TRANSFER PT TO ICU FOR CLOSE MONITORING, PAIN CONTROL AND ONE TO ONE CARE. INFORMED DR. DOBSON REGARDING DR. CAICEDO'S SUGGESTION FOR TRANSFER TO ICU. DR. DOBSON STATED HE IS AGREEABLE TO IT. ABRAHAN ASSIGNED AND HOUSE BRANDI SANTOS NOTIFIED.
--- NOTE | 2018-09-11 15:55 | NUR ---
MADE DR DOBSON AWARE OF PT'S MAGNESIUM LEVEL 1.6. RECEIVED TELEPHONE ORDER FROM DR DOBSON FOR MAGNESIUM SULFATE 4G IV ONCE. PT TOLERATED WELL. WILL CONTINUE TO MONITOR.
--- NOTE | 2018-09-11 16:00 | NUR ---
ADMINISTERED PRN DILAUDID FOR 10/10 BLE PAIN. PT TOLERATED WELL. MOTHER AT THE BEDSIDE. PT WAS SEEN BY DR CAICEDO.
--- NOTE | 2018-09-11 16:15 | NUR ---
PER DR CAICEDO, DRESSING CHANGE WILL NOT BE DONE UNTIL THURSDAY. PT'S MOTHER WAS NOTIFIED. PER DR CAICEDO'S INSTRUCTIONS, REINFORCE PATIENT'S WOUND DRESSING AT THIS TIME BUT DO NOT OPEN. PT REFUSED REINFORCEMENT OF WOUND DRESSINGS. PT'S MOTHER AND DR CAICEDO WAS AWARE. Addendum: 09/11/18 at 1729 by Abrahan Ibarra RN PATIENT ALSO REFUSED TO BE TURNED.
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
--- NOTE | 2018-09-11 17:00 | NUR ---
TRANSFERRED PT TO ICU PER MD ORDER. ENDORSED PT TO GÉNESIS GROSSMAN FOR CONTINUITY OF CARE. PT STABLE. PT HAS ALL OF BELONGINGS. PLAN OF CARE DISCUSSED WITH PT AND MOTHER, UNDERSTANDING WAS VERBALIZED.
--- NOTE | 2018-09-11 17:35 | NUR ---
DR. DOBSON IN TO SEE PT. WILL FOLLOW UP ON ORDERS.
[2018-09-11] MEDS ORDERED: HYDROmorphone 1 MG/ML AMP IVP SCH (18:00)
[2018-09-11] MEDS ORDERED: MAG SULF 2000 MG/WATER PREMIX 100 ML IV SCH (18:00)
--- NOTE | 2018-09-11 18:30 | NUR ---
BLOOD SUGAR 76, JUICE AND HEALTH SHAKE GIVEN AND PT DRANK THEM. NO SIGNS OF DISTRESS NOTED. MOTHER AT BEDSIDE.
[2018-09-11] MEDS: ALBUMIN HUMAN 25% 100 ML IV SCH ×2 (18:31→23:03)
--- NOTE | 2018-09-11 19:30 | NUR ---
REPORT GIVEN TO DUAL RATE DEALER NURSE FOR CONTINUITY OF CARE. PT IS IN STABLE CONDITION.
--- NOTE | 2018-09-11 19:34 | NUR ---
RECEIVED A CALL FROM [facility] OF [facility] UPDATING US THAT STILL THERE'S NO BED AVAILABLE YET TO ADMIT THIS PATIENT AND THEY WILL CALL AGAIN AFTER 4 HRS TO GIVE US UPDATE ON BED AVAILABILITY.
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
--- NOTE | 2018-09-11 20:15 | NUR ---
PT REFUSED TO REPOSITION,OFFER X3, RISK AND BENEFIT EXPLAIN ALSO REMIND PT THAT WILL HELP HIS WOUND, PT STILL REFUSED, WILL CONT TO FOLLOW UP.
[2018-09-11] MEDS: AMINO ACIDS IV SCH ×4 (20:34)
[2018-09-11] MEDS: NACL 0.9% 1,000 ML IV SCH (20:34)
[2018-09-11] MEDS: MULTIVITAMIN IV SCH ×4 (20:34)
[2018-09-11] MEDS: [UNRECOGNIZED DRUG - OTHER] IV SCH ×4 (20:34)
[2018-09-11] MEDS: DEXTROSE IV SCH ×4 (20:34)
--- NOTE | 2018-09-11 20:40 | NUR ---
PER REPORT BLOOD SUGAR IS 76, RECHECK AND INCREASE TO 90. CONTINUE TO MONITOR
[2018-09-11] MEDS ORDERED: LEVOFLOXACIN 500 MG/D5W PREMIX 100 ML IV SCH (20:50)
[2018-09-11] MEDS ORDERED: VANCOMYCIN PER PHARMACY MC PRN (21:00)
--- NOTE | 2018-09-11 21:06 | NUR ---
COME TO SEE PT NO NEW ORDER YET.
--- NOTE | 2018-09-11 21:40 | NUR ---
AROLDO FROM PHARMACY CALL AND ASK TO INFORM THAT CULTURE RESULT FROM LEFT LEG WOUND IS PSEUDOMONAS AERUGINOSA AND RESISTANT TO ZOSYN,ASKING IF MD WANT TO DC ZOSYN ORDER. PLACED CALL TO MD AND MADE AWARE REGARDING RESISTANT OF ZOSYN PER MD HE IS AWARE AND HE SAID CONTINUE ZOSYN AND HE ADD COLISTIN AND VANCOMYCIN ORDER. AROLDO FROM PHARMACY INFORM THAT MD SAID TO CONTINUE.
[2018-09-11] MEDS: COLISTIMETHATE SODIUM 150 MG in NACL 0.9% 100 ML IV SCH (22:00)
--- NOTE | 2018-09-11 22:05 | NUR ---
PT REFUSED TO REPOSITION OFFER X3 RISK AND BENEFIT EXPLAIN
[2018-09-11] MEDS ORDERED: COLISTIMETHATE SODIUM 150 MG VIAL ONE (22:25)
[2018-09-12] VITALS (10 sets, daily range): BP systolic 90–124; BP diastolic 47–73
--- NOTE | 2018-09-12 | NUR ---
BLOOD SUGAR CHECK DONE AND RESULT IS 84. NO S/S OF HYPOGLYCEMIC NOTED. CONTINUE ON TPN ORDER.
--- NOTE | 2018-09-12 00:05 | NUR ---
ROBERT OF TRANSFER C[facility] CALLED AGAIN AND HE TOLD ME THERE IS BED AVAILABLE ALREADY FOR THIS PATIENT BUT THEIR RECEIVING DOCTOR WANTS TO TALK FIRST TO PATIENTS DOCTOR WHICH IS DR. DOBSON THE GLOBAL PRESIDENT TONIGHT FOR [facility]. SO PAGED DR. DOBSON IMMEDIATELY AND TOLD HIM, GAVE THE TELEPHONE NUMBER OF [facility] SO HE CAN TALK TO THE ACCEPTING DOCTOR THERE.
--- NOTE | 2018-09-12 00:45 | NUR ---
FOLLOW UP TO ROBERT OF TRANSFER C[facility] REGARDING PATIENT TRANSFER, HE SAID THEIR ACCEPTING MD WAS NOT ABLE TO TALK YET TO DR. DOBSON; ROBERT SAID HE'LL CALL ME BACK IN AN AROUND FOR AN UPDATE.
--- NOTE | 2018-09-12 00:50 | NUR ---
CALLED AND INFORM THAT [facility] DECLINE THE PT .
--- NOTE | 2018-09-12 00:55 | NUR ---
ROBERT FROM [facility] CALLED AND INFORM THAT THE ACCEPTING MD DECLINE PT D/T THEY DO NOT HAVE PLASTIC SURGERY IN THE HOSPITAL AND SUGGEST TO [facility].
[2018-09-12] MEDS: HYDROmorphone PFS 2 MG/ML SYR IVP PRN ×11 (01:11→23:29)
--- NOTE | 2018-09-12 03:22 | NUR ---
PT C/O PAIN AND PRN PAIN MED GIVEN ORDER.
--- NOTE | 2018-09-12 04:00 | NUR ---
PT LOOK CALM PAIN REDUCE TO 4/10
--- NOTE | 2018-09-12 05:00 | NUR ---
PT REFUSE TO BE CHANGE, REFUSE TO REPOSITION, OFFER X3 RISK AND BENEFIT EXPLAIN, PT IS ALERT ORIENTED X4.WILL ENDORESED TO NEXT SHIFT.
[2018-09-12] MEDS: ALBUMIN HUMAN 25% 100 ML IV SCH ×2 (05:46→11:59)
[2018-09-12] MEDS: PIPERACILLIN/TAZOBACTAM 3.375 GM in DEXTROSE 5% 50 ML IV SCH ×3 (05:47→17:28)
[2018-09-12] MEDS ORDERED: HYDROmorphone 1 MG/ML AMP ONE (05:51)
[2018-09-12] MEDS: BLOOD GLUCOSE MONITORING 1 DEV DEV FS SCH ×3 (06:16→17:43)
--- NOTE | 2018-09-12 06:29 | NUR ---
AM MEDS GIVEN, BLOOD SUGAR IS 93, NO COVERAGE NEED AT THIS TIME.
[2018-09-12 06:41] LABS: ANION GAP 9.6 (8-16); CREATININE 0.7 mg/dL (0.7-1.3); POTASSIUM 3.6 mmol/L (3.5-5.1)
[2018-09-12 06:47] LABS: MAGNESIUM 2.1 mg/dL (1.8-2.4); PHOSPHORUS 3.7 mg/dL (2.5-4.9)
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
[2018-09-12] MEDS: KETOROLAC 30 MG/ML VIAL IVP PRN (08:03)
[2018-09-12] MEDS: COLISTIMETHATE SODIUM 150 MG in NACL 0.9% 100 ML IV SCH ×2 (08:59→20:32)
[2018-09-12] MEDS: fentaNYL 0.05 MG/HR PATCH TD SCH (09:02)
--- NOTE | 2018-09-12 09:30 | NUR ---
PT SEEN AND EXAMINED BY DR. DOBSON. NO NEW ORDER AT THIS TIME.
--- NOTE | 2018-09-12 09:40 | NUR ---
PT HAVING BREAKFAST. ABLE TO EAT INDEPENDENTLY. NO S/SX OF DISTRESS AT THIS TIME. WILL CONTINUE TO MONITOR.
[2018-09-12] MEDS: VANCOMYCIN HCL 750 MG in DEXTROSE 5% 250 ML IV SCH ×2 (10:49→22:14)
--- NOTE | 2018-09-12 11:15 | NUR ---
CALLED AND FAX PATIENT INFORMATION TO DANIS DAWN TALK TO MAIKEL [[phone]] NEEDED THE FOR HIGHER LRVEL OF CARE.
--- NOTE | 2018-09-12 11:45 | NUR ---
DANIS DAWN [MAIKEL ] CALL BACK THE DOCTOR HAS DENIED THIS PATIENT NEEDED BURN CARE AND RECOMMEND ARROWHEAD FOR BURN CARE.
--- NOTE | 2018-09-12 12:05 | NUR ---
PT REFUSED TO BE REPOSITIONED OR CLEANED AT THIS TIME. PT STATED THAT HE CAN REPOSITION HIMSELF. CHARGE NURSE ALSO AT BEDSIDE AND AWARE.
--- NOTE | 2018-09-12 14:42 | NUR ---
DR. CAICEDO IN TO SEE PT. PT SIGNED THE CONSENT FOR BLE DRESSING CHANGE TOMORROW.
--- NOTE | 2018-09-12 16:00 | NUR ---
CHEST X- RAY DONE. PT TOLERATED WELL.
--- NOTE | 2018-09-12 16:04 | NUR ---
UNABLE TO DO EKG DUE TO SKIN GRAFT ON RIGHT SIDE OF BODY UNABLE TO PLACE TABS GÉNESIS MARLEY AND GÉNESIS GROSSMAN NOTIFIED
--- NOTE | 2018-09-12 17:50 | NUR ---
APPLE JUICE PROVIDED DUE TO DECREASED BLOOD SUGAR OF 71. PT DENIES DIZZINESS, NAUSEA OR ANY OTHER DISCOMFORT. NO S/SX OF ACUTE DISTRESS NOTED AT THIS TIME. VSS. SAFETY PRECAUTIONS IN PLACE. WILL CONTINUE TO MONITOR.
--- NOTE | 2018-09-12 19:10 | NUR ---
RECEIVED BEDSIDE REPORT FROM DAY SHIFT NURSE CHAUNCEY. PATIENT IN BED, ON CONTACT ISOLATION PRECAUTIONS FOR MDRO AND PSEUDOMANIAS OF LEFT LEG WOUND. AAOX 4, ABLE TO MAKE NEEDS KNOWN AND FOLLOW COMMANDS, PERRLA, SIZE 3. V/S STABLE, ST ON MONITOR. PATIENT C/O OF SEVERE CHRONIC BACK PAIN 11/18 REQUEST DILAUDID. PATIENT ON RA, LUNG SOUNDS CLEAR BILATERALLY. RIGHT IJ IN PLACE, DRESSING INTACT, INFUSING MULTIVITAMIN TPN AT 65 ML/HR AND NS AT 15 ML/HR. ABDOMEN SOFT, FLAT, NON DISTENDED, LEFT SIDED COLOSTOMY BAG IN PLACE DRAINING DARK GREENISH STOOL, DRESSING INTACT. MULTIPLE SKIN GRAFTS NOTED. RIGHT BKA, DRESSING INTACT. LEFT DRESSING ON LEG WITH SCANT YELLOWISH DISCHARGE. PATIENT REFUSED TO BE TURN PATIENT EXPLAINED HE CAN TURN ON HIS OWN, EDUCATION PROVIDED REGARDING IMPORTANCE OF TURING TO PREVENT WOUNDS AND PROVIDE ADEQUATE CIRCULATION. PATIENT VERBALIZED UNDERSTANDING. EXPLAINED IF HE NEEDS ASSISTANCE WITH TURING WE CAN HELP HIM. PATIENT VERBALIZED UNDERSTANDING. CAP REFILL LESS THAN 3 SECONDS. S1 AND S2 HEARD, UPPER EXTREMITY PULSES PALPATED. SIDE RAILS UP, CALL LIGHT WITHIN REACH, WILL CONTINUE TO MONITOR FREQUENTLY.
--- NOTE | 2018-09-12 19:10 | NUR ---
REPORT GIVEN TO SPORTS EQUIPMENT SUPERVISOR RN FOR CONTINUITY OF CARE. PT IS IN STABLE CONDITION.
--- NOTE | 2018-09-12 19:40 | NUR ---
MOTHER AT BEDSIDE VISITING PATIENT UPDATE GIVEN.
[2018-09-12] MEDS: DEXTROSE IV SCH ×4 (20:33)
[2018-09-12] MEDS: [UNRECOGNIZED DRUG - OTHER] IV SCH ×4 (20:33)
[2018-09-12] MEDS: MULTIVITAMIN IV SCH ×4 (20:33)
[2018-09-12] MEDS: AMINO ACIDS IV SCH ×4 (20:33)
--- NOTE | 2018-09-12 22:00 | NUR ---
ASSISTED PATIENT TO BE REPOSITIONED. CALL LIGHT WITHIN REACH WILL CONTINUE TO MONITOR
--- NOTE | 2018-09-12 23:30 | NUR ---
PATIENT C/O PAIN HAVE PRN DILAUDID
[2018-09-13] VITALS (12 sets, daily range): BP systolic 89–116; BP diastolic 50–68
[2018-09-13] MEDS: PIPERACILLIN/TAZOBACTAM 3.375 GM in DEXTROSE 5% 50 ML IV SCH ×4 (00:09→17:22)
[2018-09-13] MEDS: BLOOD GLUCOSE MONITORING 1 DEV DEV FS SCH ×5 (00:14→23:42)
[2018-09-13] MEDS: HYDROmorphone PFS 2 MG/ML SYR IVP PRN ×9 (01:31→22:41)
--- NOTE | 2018-09-13 02:00 | NUR ---
PATIENT C/O PAIN WILL MEDICATE SOON DILAUDID IS DUE
--- NOTE | 2018-09-13 04:00 | NUR ---
OFFERED TO REPOSITION PATIENT, PATIENT REFUSED, EDUCATION PROVIDED. CALL LIGHT WITHIN REACH.
--- NOTE | 2018-09-13 06:30 | NUR ---
ASKED PATIENT IF HE NEEDS HELP TURING. PATIENT REFUSED TO BE TURNED AND REFUSED MORNING CARE. EDUCATION PROVIDED REGARDING NEED TO TURN TO PREVENT WOUNDS. PATIENT VERBALIZED UNDERSTANDING.
[2018-09-13] MEDS: KETOROLAC 30 MG/ML VIAL IVP PRN (06:31)
--- NOTE | 2018-09-13 07:15 | NUR ---
ENDORSED PATIENT TO DAY SHIFT NURSE PIOTR, PATIENT IN BED, CALL LIGHT WITHIN REACH.
--- NOTE | 2018-09-13 07:15 | NUR ---
RECEIVED BEDSIDE REPORT FROM SECURITY PROGRAM MANAGER NURSE FELICIA. PT AAOX4, IN BED, ON CONTACT PRECAUTIONS FOR MDRO AND PSEUDOMONAS OF LEGS WOUNDS. ST ON MONITOR. VITALS STABLE. DENIES HEADACHE AND SOB. PT ON ROOM AIR, LUNG SOUNDS CLEAR BILATERALLY. RIGHT IJ IN PLACE, DRESSING INTACT, RUNNING TPN AT 80 ML/HR AND NS AT 5 ML/HR. ABDOMEN SOFT, NONTENDER, COLOSTOMY BAG ON LEFT SIDE DRAINING BROWN COLOR STOOL, NO LEAKING. MULTIPLE SKIN GRAFTS NOTED ON CHEST. RIGHT SIDED BKA, DRESSING INTACT. LEFT LEG WOUND DRESSING INTACT. PT IS ABLE TO MOVE BOTH ARMS, AND PT STATED HE CAN MOVE HIS LEGS BUT DON'T WANT TO MOVE TOO MUCH. SIDE RAILS UP, CALL LIGHT WITHIN REACH, WILL CONTINUE TO MONITOR.
[2018-09-13 07:17] LABS: ANION GAP 10.4 (8-16); CARBON DIOXIDE 28.5 mmol/L (21-32); CREATININE 0.8 mg/dL (0.7-1.3); POTASSIUM 3.9 mmol/L (3.5-5.1)
--- NOTE | 2018-09-13 08:01 | NUR ---
PT REFUSED TO BE REPOSITIONED. EDUCATED PT ON TURNING TO HELP THE SACRAL WOUND HEALING AND PREVENT MORE PRESSURE RELATED PROBLEMS. PT STILL REFUSING. EVEN AFTER DILAUDID HAS BEEN GIVEN.
[2018-09-13 08:03] LABS: MAGNESIUM 1.8 mg/dL (1.8-2.4); PHOSPHORUS 4.6 mg/dL (2.5-4.9)
[2018-09-13] MEDS: COLISTIMETHATE SODIUM 150 MG in NACL 0.9% 100 ML IV SCH ×2 (08:21→20:13)
--- NOTE | 2018-09-13 10:10 | NUR ---
OFFERED TO CHANGE PT'S BED LINENS AND CHUX. PT SAID NO, THEY WILL CHANGE THEM WHEN THEY DO THE PROCEDURE.
[2018-09-13] MEDS: VANCOMYCIN HCL 750 MG in DEXTROSE 5% 250 ML IV SCH ×3 (10:14→23:00)
[2018-09-13 10:32] LABS: BASOPHILS % (AUTO) 0.3 % (0.0-2.0); EOSINOPHILS # (AUTO) 0.6 K/uL (0-0.4); EOSINOPHILS % (AUTO) 6.5 % (0.0-4.0); LYMPHOCYTES # (AUTO) 1.1 K/uL (2.0-11.5); LYMPHOCYTES % (AUTO) 12.2 % (20.5-51.1); MEAN CORPUSCULAR HEMOGLOBIN 29 pg (27-31); MEAN CORPUSCULAR HGB CONC 33 g/dL (33-37); MEAN CORPUSCULAR VOLUME 86.6 fL (80-94); MONOCYTES % (AUTO) 10.5 % (1.7-9.3); NEUTROPHILS # (AUTO) 6.6 K/uL (1.8-7.7); NEUTROPHILS % (AUTO) 70.5 % (42.2-75.2); PLATELET COUNT (AUTO) 467 K/uL (140-450); RED BLOOD CELL COUNT(AUTO) 1.91 MIL/uL (4.20-6.10); RED CELL DISTRIBUTION WIDTH 16.9 % (11.6-13.7); WHITE BLOOD COUNT (AUTO) 9.3 K/uL (4.8-10.8)
--- NOTE | 2018-09-13 10:54 | NUR ---
RECEIVED CRITICAL VALUES FROM LAB, PAGED DR GREEN
--- NOTE | 2018-09-13 11:04 | NUR ---
DR DOBSON CALLED BACK, ORDERED [address] DOBSON SAID WILL COME AROUND 12, IF HIS SIGNATURE IS NEEDED.
[2018-09-13 11:05] LABS: HEMATOCRIT 16.5 % (36-52); HEMOGLOBIN 5.5 g/dL (12.0-18.0)
--- NOTE | 2018-09-13 11:20 | NUR ---
PAGED DR CAICEDO, REGARDING HGB 5.5
--- NOTE | 2018-09-13 13:20 | NUR ---
DR CAICEDO CAME TO SEE THE PT. MADE HIM AWARE THAT HGB 5.5, DR DOBSON ALREADY ORDERED [address] CAICEDO ORDERED [address] CAICEDO SAID HE WILL PROBABLY DO THE PROCEDURE TOMORROW, OK TO FEED HIM TODAY. NPO AFTER MIDNIGHT.
--- NOTE | 2018-09-13 14:30 | NUR ---
WOUND CARE NURSE DEMETRA WAS HERE, EDUCATED PT ON TURNING AND REPOSITION. PT STILL REFUSING TO BE TURNED, SAID HE CAN TURN HIMSELF.
--- NOTE | 2018-09-13 14:47 | NUR ---
SPOKE TO PT WITH CHARGE NURSE AT BED SIDE AND OFFER WOUND ASSESSMENT. PT REFUSED, RISK AND BENEFIT EXPLAINED. PT STATED " I TURNED MYSELF DURING MY SLEEP AND IT HURTS A LOT, I DON'T WANT TO BE TURNED AGAIN TODAY". SPORK TO CN AND OR TEAM, SUGGEST TO TAKE SKIN PHOTO ON SACRALCOCCYX, RECTAL AREA, AND BILATERAL HEELS AND ANY SKIN PROBLEMS DURING OR PROCEDURES WHEN PT. IS UNDER ANAESTHESIA.
--- NOTE | 2018-09-13 15:45 | NUR ---
09/13/18 RD FOLLOW UP COMPLETED PLEASE REFER TO NUTRITION ASSESSMENT UNDER CARE ACTIVITY FOR ESTIMATED NUTRITIONAL NEEDS. 1. CONTINUE TPN: D12.5%, AA 4.25% AT 80 ML/HR AND LIPIDS 10% (200 ML). -THIS WILL PROVIDE PATIENT WITH 1342 KCAL, 81 GM OF PROTEIN WHICH MEETS 63% OF ESTIMATED KCAL NEEDS AND 90% OF PROTEIN NEEDS 2. GRADUALLY INCREASE TPN WHEN MEDICALLY APPROPRIATE TO MEET >75% OF ESTIMATED NEEDS OR 1575 KCAL/DAY 3. CONTINUE REGULAR DIET 4. RECOMMEND RODRIGUEZ BID FOR WOUNDS 5. RD WILL FOLLOW UP 2-3 DAYS, HIGH RISK ALEXEI JOHNSTON RD
--- NOTE | 2018-09-13 17:11 | NUR ---
ASKED WHEN WAS THE LAST TIME PT URINATED. PT SAID AROUND 6AM TODAY.
[2018-09-13] MEDS ORDERED: ACETAMINOPHEN 650 MG/20.3 ML UDC PO PRN (18:10)
--- NOTE | 2018-09-13 18:10 | NUR ---
SPOKE WITH DR GREEN OVER THE PHONE, MADE HIM AWARE OF PT HAVING FEVER OF 101F, CAN WE STILL START BLOOD TRANSFUSION RIGHT NOW? DR GREEN SAID YES, AND GIVE HIM TYLENOL AND COOLING MEASURES.
--- NOTE | 2018-09-13 18:20 | NUR ---
OFFERED PT ICE PACK TO BE PLACE UNDER HIS NECK, PT STATED JUST PLACE IN HIS ARMPIT. ALSO GAVE PT TYLENOL.
--- NOTE | 2018-09-13 18:30 | NUR ---
PT DENIES ANY SOB, PT STATED HE DOES NOT FEEL ANYTHING DIFFERENT. PAIN IMPROVED AFTER THE DILAUDID.
--- NOTE | 2018-09-13 19:15 | NUR ---
RECEIVED PT FROM MORNING SHIFT RNPIOTR. PT IS AAOX4, CALM. ST COFFEE TASTER, HOB ELEVATED AT 30 DEG. FAMILY/MOM AT BEDSIDE. LUNG SOUNDS CLEAR ON UPPER/LOWER BILATERAL LOBES. COLOSTOMY BAG ON LUQ, INTACT. PT HAS RIGHT IJ CENTRAL LINE IN PLACE INFUSING 1 UNIT PRBC AND NS AT 5CC/HR. PT HAS URINAL AT BEDSIDE. PT REFUSES REPOSITIONING, STATED HE WILL BE OK TO TURN TOMORROW AFTER THE PROCEDURE WITH ANESTHESIA. SKIN REMAINS NON INTACT, DRESSING ON BILATERAL LOWER EXTREMITY, COVERED WITH DRESSING. ON CONTACT ISOLATION, ALLERGY BAND, FALL RISK NOTNED. PT IS ON THERAPEUATIC MATTRESSS.
[2018-09-13] MEDS: DEXTROSE IV SCH ×8 (20:00→20:08)
[2018-09-13] MEDS: MULTIVITAMIN IV SCH ×8 (20:00→20:08)
[2018-09-13] MEDS: AMINO ACIDS IV SCH ×8 (20:00→20:08)
[2018-09-13] MEDS: [UNRECOGNIZED DRUG - OTHER] IV SCH ×4 (20:00)
[2018-09-13] MEDS: [UNRECOGNIZED DRUG - OTHER] IV SCH ×4 (20:08)
--- NOTE | 2018-09-13 21:20 | NUR ---
BS 220; CONTINUED INSULIN DRIP AT 2 UNITS/HR; DR HARRY IN THE UNIT AND AWARE. Addendum: 09/13/18 at 2123 by Gem Davis RN ERROR; WRONG PT
--- NOTE | 2018-09-13 21:50 | NUR ---
NEW UNIT OF PRBC HUNG AT THIS TIME. PT IS CALM/AWAKE/COOPERATIVE WATCHING TELEVISION. CALL LIGHT WITHIN REACH.
--- NOTE | 2018-09-13 22:27 | NUR ---
ARIC FROM LAB AT BEDSIDE, PRIMARY RN MILY BLOOD FROM RIGHT IJ CENTRAL LINE.
--- NOTE | 2018-09-13 22:41 | NUR ---
URINAL AT BEDSIDE, PT INDEPENDENT WITH USE. OUTPUT OF 550, URINE IS CLEAR/YELLOW. RATES PAIN 9/10. DILAUDID GIVEN
--- NOTE | 2018-09-13 23:05 | NUR ---
DR RODRIGUEZ IN TO SEE PATIENT, UPDATED ON VANCO LAB DRAW, HOLDING VANCO AT THIS TIME. NO NEW ORDERS.
[2018-09-14] VITALS (12 sets, daily range): BP systolic 88–119; BP diastolic 49–73
[2018-09-14] MEDS: PIPERACILLIN/TAZOBACTAM 3.375 GM in DEXTROSE 5% 50 ML IV SCH ×4 (00:42→18:10)
[2018-09-14] MEDS: HYDROmorphone PFS 2 MG/ML SYR IVP PRN ×12 (00:43→23:59)
--- NOTE | 2018-09-14 01:13 | NUR ---
PT AWAKE, PT CONTINUES TO REFUSED REPOSITIONING IN BED DUE TO PAIN, RATED AT 8/10 DILAUDID WAS GIVEN. THIRD BAG OF PRBC INFUSING AT THIS TIME.
--- NOTE | 2018-09-14 01:45 | NUR ---
3RD UNIT PRBC TRANSFUSING AT THIS TIME.NO UNTOWARD REACTIONS NOTED.PT DENIES SOB.STILL REFUSING TO BE REPOSITIONED.
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
[2018-09-14] MEDS: BLOOD GLUCOSE MONITORING 1 DEV DEV FS SCH ×3 (06:45→18:46)
--- NOTE | 2018-09-14 06:46 | NUR ---
lab at bedside, rn collected blood sample via central line. Blood glucose is 98 at this time, pt is awake watching tv. flacc 0
[2018-09-14 06:49] LABS: HEMATOCRIT 25.5 % (36-52); HEMOGLOBIN 8.5 g/dL (12.0-18.0); MEAN CORPUSCULAR HEMOGLOBIN 28 pg (27-31); MEAN CORPUSCULAR HGB CONC 33 g/dL (33-37); PLATELET COUNT (AUTO) 460 K/uL (140-450); RED CELL DISTRIBUTION WIDTH 16.6 % (11.6-13.7); WHITE BLOOD COUNT (AUTO) 13.8 K/uL (4.8-10.8)
--- NOTE | 2018-09-14 07:07 | NUR ---
GAVE BEDSIDE REPORT TO MORNING SHIFT RNPIOTR.
--- NOTE | 2018-09-14 07:10 | NUR ---
RECEIVED BEDSIDE REPORT FROM CORE FEEDER NURSE XU. 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 ST ON MONITOR. VITALS STABLE. DENIES SOB. PT ON ROOM AIR, LUNG SOUNDS CLEAR BILATERALLY. RIGHT IJ IN PLACE, DRESSING INTACT, RUNNING TPN AT 80 ML/HR AND NS AT 5 ML/HR. ABDOMEN SOFT, NONTENDER, COLOSTOMY BAG ON LEFT SIDE DRAINING BROWN COLOR STOOL, NO LEAKING. MULTIPLE SKIN GRAFTS NOTED ON CHEST AND BUE. RIGHT BKA. DRESSING INTACT ON BLE. LEFT LEG WOUND DRESSING INTACT. I/D SCHEDULED FOR TODAY. PT IS AWARE. SIDE RAILS UP, CALL LIGHT WITHIN REACH, WILL CONTINUE TO MONITOR.
[2018-09-14 07:37] LABS: ANION GAP 11.5 (8-16); CARBON DIOXIDE 28.1 mmol/L (21-32); CREATININE 2.1 mg/dL (0.7-1.3); POTASSIUM 4.6 mmol/L (3.5-5.1)
[2018-09-14 07:47] LABS: EOSINOPHILS % (MANUAL) 2 % (0-4); LYMPHOCYTES % (MANUAL) 16 % (20-46); MONOCYTES % (MANUAL) 10 % (5-12)
[2018-09-14 07:55] LABS: MAGNESIUM 2.3 mg/dL (1.8-2.4); PHOSPHORUS 5.3 mg/dL (2.5-4.9)
--- NOTE | 2018-09-14 08:00 | NUR ---
DILAUDID GIVEN FOR PAIN 10/19. PT STILL REFUSING TO BE TURNED.
--- NOTE | 2018-09-14 09:00 | NUR ---
ASKED PT IF I CAN DRAIN HIS COLOSTOMY BAG. PT REFUSED AND SAID, THERE IS NOT MUCH IN THE BAG, IT WILL MAKE A MESS WHEN SQUEEZING IT OUT.
[2018-09-14] MEDS: COLISTIMETHATE SODIUM 150 MG in NACL 0.9% 100 ML IV SCH ×2 (09:08→20:19)
--- NOTE | 2018-09-14 10:09 | NUR ---
Patient discussed during interdisciplinary rounds. Pt still waiting to be transferred to higher level of care. [facility] and [facility] have declined the referral. [facility] has no beds available. Dain called [facility] case investigatorAngel to request assistance in transferring this patient to another facility. Angel to consult with his peers/front office medical assistant and will contact us back. ILYA Marie Ext [phone] Addendum: 09/14/18 at 1147 by Dasia Pederson CM Spoke to [facility] Knotter - Nikolai who stated the patient's wounds are chronic and that may be the reason he's been declined as a transfer for higher level of care. Nikolai indicated the patient has been in the last year at [facility] and [facility]. Nikolai suggested to contact [facility] to inquire about transferring the pt to the [facility]. Dain called bed control at and fax request at . Dain will continue following up as needed. ILYA Marie, ext [phone] Addendum: 09/14/18 at 1310 by Dasia Pederson CM Received a call from [facility] and stated they patient has been declined. Dasia Pederson, ACSW Ext [phone]
[2018-09-14] MEDS ORDERED: SEVOFLURANE 250 ML BTL INH ONE (11:15)
[2018-09-14] MEDS ORDERED: PROPOFOL 200 MG/20 ML VIAL IV ONE (11:15)
[2018-09-14] MEDS ORDERED: MEPERIDINE 50 MG/ML SYR ONE (11:33)
[2018-09-14] MEDS ORDERED: fentaNYL 0.05 MG/ML VIAL ONE (11:33)
[2018-09-14] MEDS ORDERED: MIDAZOLAM 2 MG/2 ML VIAL ONE (11:33)
--- NOTE | 2018-09-14 13:20 | NUR ---
CALLED SX ROOM STAFF TO CLARIFY BLOOD TRANSFUSION HELD ORDER WITH DR CAICEDO. DR CAICEDO IS IN ANOTHER CASE, HE WILL CALL BACK WHEN HE IS DONE.
--- NOTE | 2018-09-14 14:55 | NUR ---
PAGED DR CAICEDO TO CLARIFY BLOOD TRANSFUSION ORDER.
--- NOTE | 2018-09-14 15:20 | NUR ---
DR CAICEDO CALLED BACK, WANTS TO TRANSFUSE 1 BAG PRBC TODAY.
--- NOTE | 2018-09-14 18:00 | NUR ---
PT COUGHING AND C/O NAUSEA, ZOFRAN GIVEN. PAIN MED GIVEN TOO.
[2018-09-14] MEDS: ONDANSETRON 4 MG/2 ML VIAL IVP PRN (18:06)
--- NOTE | 2018-09-14 19:30 | NUR ---
RECEIVED REPORT FROM DAY NURSE. NO ACUTE DISTRESS NOTED.
--- NOTE | 2018-09-14 19:45 | NUR ---
PT AAOX4, FOLLOWING COMMANDS, MOTHER @ BEDSIDE. SINUS TACHYCARDIC 110-120S, S1 S2 NOTED. NO EDEMA NOTED. LUNGS CLEAR BILATERAL UPPER LOBES, DIMINISHED @ BASES, ON ROOM AIR, DENIES CP/SOB @ THIS TIME. ABDOMEN SOFT NON DISTENDED. COLOSTOMY PINK MOIST STOMA NOTED; LLQ, BROWN LIQUID STOOL NOTED. PT DINNER TRAY @ BEDSIDE. POOR APPETITE NOTED. PT VOIDING IN URINAL. SKIN NON INTACT; HX OF SKIN GRAFTS TO CHEST AND BUE. DRESSING CDI TO BLE, SACRAL AND BACK, S/P DRESSING CHANGE OF WOUNDS DONE EARLIER IN PM WITH DR. CAICEDO. R BKA NOTED. R IJ TRIPLE LUMEN NOTED, TPN CURRENTLY RUNNING. BED LOCKED IN LOWEST POSITION. CALL LIGHT WITHIN REACH, SIDE RAILS UP X3.
[2018-09-14] MEDS: AMINO ACIDS IV SCH ×8 (20:00→20:16)
[2018-09-14] MEDS: MULTIVITAMIN IV SCH ×8 (20:00→20:16)
[2018-09-14] MEDS: DEXTROSE IV SCH ×8 (20:00→20:16)
[2018-09-14] MEDS: [UNRECOGNIZED DRUG - OTHER] IV SCH ×8 (20:00→20:16)
--- NOTE | 2018-09-14 20:00 | NUR ---
PT EDUCATED ABOUT BLOOD TRANSFUSION, AND S/S OF REACTION. PT VERBALIZED UNDERSTANDING, AND CONSENTS FOR BLOOD TRANSFUSION
--- NOTE | 2018-09-14 22:00 | NUR ---
OFFERED TO TURN AND REPOSITION, PT REFUSED, PT STATED, I CAN TURN MYSELF AND REPOSITION. PT LAYING SUPINE ON SPECIALTY AIR MATTRESS. NO OTHER ACUTE DISTRESS NOTED
[2018-09-15] VITALS (9 sets, daily range): BP systolic 90–126; BP diastolic 44–98
--- NOTE | 2018-09-15 | NUR ---
PT REFUSING TO TURN AND REPOSITION. WILL CONTINUE TO REINFORCE TURNING FOR WOUND CARE HEALING.
--- NOTE | 2018-09-15 01:00 | NUR ---
PT REFUSING TO TURN AND ASSESS WOUNDS. DRESSING TO WOUNDS INTACT; SEROSANGUINOUS DRAINAGE NOTED.
[2018-09-15] MEDS: HYDROmorphone PFS 2 MG/ML SYR IVP PRN ×9 (02:08→22:00)
--- NOTE | 2018-09-15 04:00 | NUR ---
PT TOLERATING PO INTAKE. PT DRANK 1 CUP WATER. REFUSING AM CARE, AND GOWN CHANGE
[2018-09-15] MEDS: BLOOD GLUCOSE MONITORING 1 DEV DEV FS SCH ×4 (06:00→17:25)
[2018-09-15] MEDS: PIPERACILLIN/TAZOBACTAM 3.375 GM in DEXTROSE 5% 50 ML IV SCH ×4 (06:17→11:51)
[2018-09-15 07:04] LABS: ANION GAP 15.6 (8-16); CARBON DIOXIDE 25.3 mmol/L (21-32); CREATININE 2.7 mg/dL (0.7-1.3); POTASSIUM 4.9 mmol/L (3.5-5.1)
[2018-09-15 07:13] LABS: MAGNESIUM 2.1 mg/dL (1.8-2.4); PHOSPHORUS 4.9 mg/dL (2.5-4.9)
--- NOTE | 2018-09-15 07:15 | NUR ---
REPORT GIVEN TO DAY SHIFT RN FOR CONTINUITY OF CARE.
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
[2018-09-15] MEDS: fentaNYL 0.05 MG/HR PATCH TD SCH (08:50)
[2018-09-15] MEDS: COLISTIMETHATE SODIUM 150 MG in NACL 0.9% 100 ML IV SCH (08:50)
[2018-09-15] MEDS ORDERED: VANCOMYCIN 1,000 MG in DEXTROSE 5% 250 ML IV SCH (09:00)
--- NOTE | 2018-09-15 09:00 | NUR ---
MEDICATIONS ADMINISTERED ORDERED. PT TOLERATED WELL.
[2018-09-15 10:26] LABS: BASOPHILS % (AUTO) 0.2 % (0.0-2.0); EOSINOPHILS # (AUTO) 0.7 K/uL (0-0.4); EOSINOPHILS % (AUTO) 4.6 % (0.0-4.0); HEMATOCRIT 27.7 % (36-52); HEMOGLOBIN 8.9 g/dL (12.0-18.0); LYMPHOCYTES # (AUTO) 1.6 K/uL (2.0-11.5); LYMPHOCYTES % (AUTO) 11.2 % (20.5-51.1); MEAN CORPUSCULAR HEMOGLOBIN 28 pg (27-31); MEAN CORPUSCULAR HGB CONC 32 g/dL (33-37); MEAN CORPUSCULAR VOLUME 87.2 fL (80-94); MONOCYTES # (AUTO) 1.4 K/uL (0.8-1.0); MONOCYTES % (AUTO) 9.7 % (1.7-9.3); NEUTROPHILS # (AUTO) 10.9 K/uL (1.8-7.7); NEUTROPHILS % (AUTO) 74.3 % (42.2-75.2); PLATELET COUNT (AUTO) 474 K/uL (140-450); RED BLOOD CELL COUNT(AUTO) 3.18 MIL/uL (4.20-6.10); RED CELL DISTRIBUTION WIDTH 16.7 % (11.6-13.7); WHITE BLOOD COUNT (AUTO) 14.7 K/uL (4.8-10.8)
--- NOTE | 2018-09-15 10:35 | NUR ---
DR. MIMS IN TO SEE PT. UPDATES GIVEN ON PT'S CONDITION.
--- NOTE | 2018-09-15 10:41 | NUR ---
CHECKED ON PT. PT STATED PAIN IS TOLERABLE AND HE DOESN'T NEED ANY PAIN MEDICATION AT THIS TIME.
[2018-09-15] MEDS: ONDANSETRON 4 MG/2 ML VIAL IVP PRN (10:50)
--- NOTE | 2018-09-15 11:50 | NUR ---
PT SEEN AND EXAMINED BY DR. DOBSON. WILL FOLLOW UP ON ORDERS.
[2018-09-15] MEDS ORDERED: PROBIOTIC SCREEN 1 EA MISC MC PRN (12:30)
--- NOTE | 2018-09-15 14:00 | NUR ---
NO CHANGE IN CONDITION AT THIS TIME. VITAL SIGNS ARE STABLE. PT REFUSED TO BE REPOSITIONED, STATING THAT HE REPOSITIONS BY HIMSELF. SAFETY PRECAUTIONS IN PLACE. WILL CONTINUE TO MONITOR.
--- NOTE | 2018-09-15 16:17 | NUR ---
WOUND CARE NURSE AND CN VISIT PT. PT. IS RESTING , EXPLAINED TO PT ACCORDING TO PHOTO DOCUMENTATIONS FROM YESTERDAY AT OR THAT HE HAS WOUNDS TO SACRAL AND HEELS AND OFFER TO PERFORMED WOUND ASSESSMENT AND WOUND CARE. PT. REFUSES AND WANTS IT TO BE DONE AT LATER TIME, "5 O'CLOCK" PER PT. CN AND PRIMARY RN NOTIFIED.
--- NOTE | 2018-09-15 17:03 | NUR ---
PT REFUSED WOUND CARE, CLEANING AND REPOSITIONING STATING THAT HE STILL WANTS TO REST AT THIS TIME. CHARGE NURSE AWARE. PT VOIDED 250 ML OF CLEAR YELLOW URINE. VSS. NO SIGNS OF DISTRESS NOTED AT THIS TIME.
[2018-09-15] MEDS: PIPERACILLIN/TAZOBACTAM 2.25 GM in DEXTROSE 5% 50 ML IV SCH ×2 (17:24→23:59)
--- NOTE | 2018-09-15 19:19 | NUR ---
REPORT GIVEN TO ORAL SURGERY ASSISTANT RN FOR CONTINUITY OF CARE. PT IS IN STABLE CONDITION.
--- NOTE | 2018-09-15 19:30 | NUR ---
RECEIVED REPORT FROM MORNING NURSE, PATIENT AAO X 4, [place] TO MAKE NEEDS KNOWN. MOTHER AT BEDSIDE. ON ROOM AIR, NO ACUTE RESPIRATORY DISTRESS NOTED. BILATERAL LUNGS SOUND CLEAR. ST ON THE MONITOR. RIGHT IJ WITH TPN 80ML/HR. PATIENT REFUSED TO ASSESS THE WOUND. 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 ALSO PATIENT REFUSED TO REPOSITIONING AT THIS TIME. HOB ELEVATED, BED IN LOW POSITION. CALL LIGHT WITHIN REACH. WILL CONTINUE TO MONITOR.
[2018-09-15] MEDS: AMINO ACIDS IV SCH ×4 (19:47)
[2018-09-15] MEDS: [UNRECOGNIZED DRUG - OTHER] IV SCH ×4 (19:47)
[2018-09-15] MEDS: MULTIVITAMIN IV SCH ×4 (19:47)
[2018-09-15] MEDS: DEXTROSE IV SCH ×4 (19:47)
--- NOTE | 2018-09-15 20:00 | NUR ---
ADMINISTERED PRN PAIN MEDICATION DILAUDID AND ZOFRAN. PAIN TO BLE FROM BURN. WILL CONTINUE TO MONITOR.
--- NOTE | 2018-09-15 21:20 | NUR ---
DR. RODRIGUEZ AT BEDSIDE TO CHECK THE PATIENT. D/C VANCOMYCIN AND COLY MYCIN DUE TO PT'S BUN AND CREATININE TRENDING UP.
--- NOTE | 2018-09-15 22:00 | NUR ---
ADMINISTERED PRN PAIN MEDICATION. PATIENT REFUSED TO REPOSITIONING. WILL CONTINUE TO MONITOR.
[2018-09-16] VITALS: BP 128/74
[2018-09-16] MEDS: HYDROmorphone PFS 2 MG/ML SYR IVP PRN ×5 (00:03→09:51)
[2018-09-16] MEDS ORDERED: HYDROmorphone 1 MG/ML AMP ONE ×4 (00:08→06:21)
--- NOTE | 2018-09-16 00:10 | NUR ---
PATIENT COMPLAINT OF PAIN AND NAUSEA. ADMINISTERED PRN PAIN MED AND ZOFRAN. PATIENT REFUSED POSITION CHANGED. BS CHECKED 83 NOTED. WILL CONTINUE TO MONITOR.
[2018-09-16] MEDS: BLOOD GLUCOSE MONITORING 1 DEV DEV FS SCH ×5 (00:21→17:35)
--- NOTE | 2018-09-16 02:20 | NUR ---
ADMINISTERED PRN PAIN MED. REFUSED REPOSITIONING. WILL CONTINUE TO MONITOR.
[2018-09-16 04:00] VITALS: BP 121/68
[2018-09-16] MEDS: ONDANSETRON 4 MG/2 ML VIAL IVP PRN ×3 (04:13→09:51)
--- NOTE | 2018-09-16 04:15 | NUR ---
PATIENT COMPLAINT OF PAIN AND NAUSEA. ADMINISTERED PRN PAIN MED AND ZOFRAN. PATIENT REFUSED REPOSITIONING.
[2018-09-16 05:28] LABS: ANION GAP 12.1 (8-16); CARBON DIOXIDE 26.5 mmol/L (21-32); CREATININE 3.1 mg/dL (0.7-1.3); POTASSIUM 4.6 mmol/L (3.5-5.1)
[2018-09-16] MEDS: PIPERACILLIN/TAZOBACTAM 2.25 GM in DEXTROSE 5% 50 ML IV SCH ×3 (06:12→17:35)
--- NOTE | 2018-09-16 06:30 | NUR ---
EMPTY COLOSTOMY BAG, 250ML OUTPUT NOTED. OFFER MORNING CARE BUT REFUSED. WILL CONTINUE TO MONITOR.
--- NOTE | 2018-09-16 07:30 | NUR ---
RECEIVED REPORT FROM EMERGENCY ROOM TECHNICIAN RN. PT IS ASLEEP, EASILY AROUSABLE. ABLE TO MAKE NEEDS KNOWN. AFEBRILE. NO C/O PAIN AT THIS TIME. SINUS TACHYCARDIA ON MONITOR. PT IS ON ROOM AIR, LUNGS CLEAR BILATERALLY, BREATHING EVEN AND UNLABORED. ABDOMEN SOFT, FLAT, NONTENDER, COLOSTOMY BAG IN PLACE. OPEN WOUNDS TO BLLE, PRESSURE ULCER TO SACRAL AREA COVERED W/ DRESSING. SKIN GRAFT NOTED TO RIGHT CHEST, BACK AND ARMS. CENTRAL LINE TLC TO RIGHT IJ ASYMPTOMATIC, PATENT AND INTACT, RUNNING TPN AT 80 ML/HR. PT IS CONTINENT, URINAL AT BEDSIDE. 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 HOB AT 30 DEGREES, BED IN LOWEST POSITION LOCKED, CALL LIGHT WITHIN REACH. NO SINGS OF ACUTE DISTRESS NOTED AT THIS TIME. WILL CONTINUE TO MONITOR.
--- NOTE | 2018-09-16 07:40 | NUR ---
BREAKFAST PROVIDED, PT STATED HE WANTED TO SLEEP NOW AND WILL EAT LATER. VSS. NOT IN ANY DISTRESS AT THIS TIME.
[2018-09-16 08:00] VITALS: BP 115/48
--- NOTE | 2018-09-16 10:05 | NUR ---
DR. CAICEDO IN TO SEE PT. WILL FOLLOW UP ON ORDERS.
[2018-09-16] MEDS ORDERED: HYDROmorphone PFS 2 MG/ML SYR IVP PRN (10:25)
--- NOTE | 2018-09-16 10:45 | NUR ---
ELADIA FROM [facility] IN THE UNIT TO ASSESS PT REGARDING TRANSFER TO [facility]. UPDATES GIVEN. PER ELADIA, HE WILL BE BACK SOON, EITHER TODAY OR TOMORROW.
[2018-09-16 11:27] LABS: PHOSPHORUS 4.3 mg/dL (2.5-4.9)
[2018-09-16 12:00] VITALS: BP 112/62
[2018-09-16] MEDS: HYDROmorphone PFS 4 MG/ML SYR IVP PRN ×5 (12:18→22:44)
--- NOTE | 2018-09-16 12:25 | NUR ---
PT SEEN AND EXAMINED BY DR. DOBSON. WILL FOLLOW UP ON ORDERS.
--- NOTE | 2018-09-16 13:15 | NUR ---
ELADIA FROM [place] CAME BACK, SPEAKING WITH FAMILY AT BEDSIDE. PER ELADIA, PT GOT APPROVED TO TRANSFER TO [facility]. Addendum: 09/16/18 at 1832 by Aniya Brandon RN BUT WILL CONFIRM LATER ALISHA MONTILLA.
--- NOTE | 2018-09-16 14:02 | NUR ---
Left a message to Angel [facility] to get AUTH for transportation.
--- NOTE | 2018-09-16 15:19 | NUR ---
Spoke with Angel PERALTA from [facility] . Angel gave me 3 facilities to request for transfer.
--- NOTE | 2018-09-16 15:23 | NUR ---
09/16/18 RD FOLLOW UP COMPLETED PLEASE REFER TO NUTRITION ASSESSMENT UNDER CARE ACTIVITY FOR ESTIMATED NUTRITIONAL NEEDS. 1. CONTINUE TPN: D12.5%, AA 4.25% AT 80 ML/HR AND LIPIDS 10% (200 ML). -THIS WILL PROVIDE PATIENT WITH 1342 KCAL, 81 GM OF PROTEIN 2. IF G-TUBE PLACEMENT IS DONE, RECOMMEND VITAL AF 1.2 @ 75 ML/HR WITH FREE WATER FLUSH OF 175 ML Q6H 3. CONTINUE REGULAR DIET 4. CONTINUE RODRIGUEZ BID 5. RD WILL FOLLOW UP 2-3 DAYS, HIGH RISK ALEXEI JOHNSTON RD
--- NOTE | 2018-09-16 15:26 | NUR ---
Faxed clinicals to [facility] . operations and maintenance supervisor , [facility] . operations and maintenance supervisor . [facility] . operations and maintenance supervisor .
--- NOTE | 2018-09-16 15:55 | NUR ---
PT REFUSED REPOSITIONING AT THIS TIME, STATED HE CAN REPOSITION HIMSELF. VSS. AFEBRILE. NOT IN ANY DISTRESS OR DISCOMFORT NOTED. WILL CONTINUE TO MONITOR.
[2018-09-16 16:00] VITALS: BP 114/58
--- NOTE | 2018-09-16 17:50 | NUR ---
DINNER TRAY PROVIDED. PT STATED HE WILL EAT LATER. MOTHER AT BEDSIDE. NO S/SX OF DISTRESS NOTED. VSS. WILL CONTINUE TO MONITOR.
--- NOTE | 2018-09-16 19:15 | NUR ---
RECEIVED REPORT FROM AM NURSE. PT AT BED ALERT AND ORIENTED X4, WATCHING TV, FOLLOWS COMMANDS, COOPERATIVE, PERRLA 3MM, BRISK, HEART RATE REGULAR, S1S2, CAP REFILL <3S, LUNG SOUNDS CLEAR THROUGHOUT, ABDOMEN, SOFT, ROUND, NONDISTENDED, COLOSTOMY BAG IN PLACE, ABDOMEN SOFT, ROUND, NONDISTENDED, NONTENDER, BLADDER, SOFT, ROUND, NONDISTENDED, NONTENDER, PT HAS GENERALIZED WEAKNESS. SKIN NON INTACT, MULTIPLE HEALED GRAFT SITES ON BILATERAL UPPER EXTREMITIES AND ABDOMEN, DRESSINGS ON BILATERAL LOWER EXTREMITIES, RIGHT BKA, PRESSURE ULCER ON SACRAL AREA, DRESSING IN PLACE, DRY AND INTACT, PT HAS RIGHT IJ IN PLACE RUNNING TPN AT 80 ML/HR, AND NS 5 ML/HR. HOB 30 DEGREES, SIDE RAILS UP X2, BED AT LOWEST POSITION.
--- NOTE | 2018-09-16 19:22 | NUR ---
REPORT GIVEN TO PHYSICIAN SURGEON RN FOR CONTINUITY OF CARE. PT IS IN STABLE CONDITION.
[2018-09-16 20:00] VITALS: BP 132/74
[2018-09-16] MEDS: [UNRECOGNIZED DRUG - OTHER] IV SCH ×4 (20:31)
[2018-09-16] MEDS: MULTIVITAMIN IV SCH ×4 (20:31)
[2018-09-16] MEDS: DEXTROSE IV SCH ×4 (20:31)
[2018-09-16] MEDS: AMINO ACIDS IV SCH ×4 (20:31)
--- NOTE | 2018-09-16 22:15 | NUR ---
PT AT BED EYES CLOSED BREATHING REGULARLY AT BED.
[2018-09-16 23:08] LABS: BASOPHILS % (AUTO) 0.2 % (0.0-2.0); EOSINOPHILS # (AUTO) 0.7 K/uL (0-0.4); EOSINOPHILS % (AUTO) 7.1 % (0.0-4.0); HEMATOCRIT 25.9 % (36-52); HEMOGLOBIN 8.4 g/dL (12.0-18.0); LYMPHOCYTES # (AUTO) 2.3 K/uL (2.0-11.5); LYMPHOCYTES % (AUTO) 23.2 % (20.5-51.1); MEAN CORPUSCULAR HEMOGLOBIN 29 pg (27-31); MEAN CORPUSCULAR HGB CONC 33 g/dL (33-37); MEAN CORPUSCULAR VOLUME 87.5 fL (80-94); MONOCYTES # (AUTO) 0.9 K/uL (0.8-1.0); MONOCYTES % (AUTO) 9.2 % (1.7-9.3); NEUTROPHILS % (AUTO) 60.3 % (42.2-75.2); PLATELET COUNT (AUTO) 516 K/uL (140-450); RED BLOOD CELL COUNT(AUTO) 2.96 MIL/uL (4.20-6.10); RED CELL DISTRIBUTION WIDTH 16.6 % (11.6-13.7); WHITE BLOOD COUNT (AUTO) 9.9 K/uL (4.8-10.8)
--- NOTE | 2018-09-16 23:15 | NUR ---
PT REQUESTED TO USE THE URINAL. PT AT STABLE CONDITION AT THIS TIME.
[2018-09-16 23:22] LABS: ANION GAP 11.2 (8-16); CARBON DIOXIDE 28.4 mmol/L (21-32); CREATININE 3.4 mg/dL (0.7-1.3); POTASSIUM 4.6 mmol/L (3.5-5.1)
[2018-09-17] VITALS: BP 112/65
[2018-09-17] MEDS: PIPERACILLIN/TAZOBACTAM 2.25 GM in DEXTROSE 5% 50 ML IV SCH ×4 (00:31→17:33)
[2018-09-17] MEDS: HYDROmorphone PFS 4 MG/ML SYR IVP PRN ×8 (01:27→21:33)
--- NOTE | 2018-09-17 03:00 | NUR ---
PT REQUESTED PAIN MEDICATION. PT AT BED RESTING, WATCHING TV.
[2018-09-17 04:00] VITALS: BP 109/59
--- NOTE | 2018-09-17 04:15 | NUR ---
PT AT BED EYES CLOSED BREATHING REGULARLY AT BED. HOB 30 DEGREES, SIDE RAILS UP X2, BED AT LOWEST POSITION.
[2018-09-17] MEDS: ONDANSETRON 4 MG/2 ML VIAL IVP PRN ×5 (04:27→21:27)
[2018-09-17] MEDS: BLOOD GLUCOSE MONITORING 1 DEV DEV FS SCH ×3 (06:00→18:40)
--- NOTE | 2018-09-17 06:15 | NUR ---
PT AT BED EYES CLOSED BREATHING REGULARLY AT BED. HOB 30 DEGREES, SIDE RAILS UP X2, BED AT LOWEST POSITION.
[2018-09-17 06:46] LABS: ANION GAP 12.2 (8-16); CARBON DIOXIDE 27.2 mmol/L (21-32); CREATININE 3.3 mg/dL (0.7-1.3); POTASSIUM 4.4 mmol/L (3.5-5.1)
[2018-09-17 07:03] LABS: MAGNESIUM 1.9 mg/dL (1.8-2.4)
--- NOTE | 2018-09-17 07:30 | NUR ---
RECEIVED REPORT FROM PM NURSE. PT AWAKE, ALERT. WATCHING TV, ABLE TO FOLLOW COMMANDS. BEDSIDE MONITOR SHOWS SR. S1S2, CAP REFILL <3S, LUNG SOUNDS CLEAR THROUGHOUT, ABDOMEN, SOFT, NONDISTENDED,NONTENDER. COLOSTOMY BAG IN PLACE, PT HAS CHRONIC PAIN. SKIN NON INTACT( SEE WOUND ASSESSMENT ). PT REFUSED TO CHECK HIS WOUND. IN WOUND BED. PT HAS RIGHT IJ IN PLACE RUNNING TPN AT 80 ML/HR, AND NS 5 ML/HR. HOB 30 DEGREES, SIDE RAILS UP X2, BED AT LOWEST POSITION. URINAL AT BEDSIDE. CALL LIGHT IN REACH, WILL CONTINUE TO MONITOR PT.
[2018-09-17 08:00] VITALS: BP 120/69
--- NOTE | 2018-09-17 09:07 | NUR ---
DR. CAICEDO CALLED IN, UPDATED PT'S BLOOD WORK RESULT, PER DR. CAICEDO, KEEP PT NPO, WILL CARRY OUT.
--- NOTE | 2018-09-17 09:30 | NUR ---
spoke to , told him to cancel wound nurse consultation due to pt refused to check his wound, refused to be turned and repositioned. per dr. marti, let aware , wound care nurse made aware.
--- NOTE | 2018-09-17 10:05 | NUR ---
Spoke to Kathryn, assigned nurse and patient is NPO and Dr. CAICEDO will do the debridement here today and no order to transfer to higher level of care.
--- NOTE | 2018-09-17 10:15 | NUR ---
SPOKE TO DR. CAICEDO IN REGARDING PT REFUSAL WOUND CARE TO SACRALCOCCYX AND HEELS WOUND, DR CAICEDO STATED " NOTHING WE CAN DO.
--- NOTE | 2018-09-17 10:16 | NUR ---
IN TO CHECK PT, DR. CAICEDO STATED HE WILL CHANGE NPO TO SOFT DIET AND DO DEBRIDEMENT ON THURSDAY.
--- NOTE | 2018-09-17 10:55 | NUR ---
SPOKE TO PT. WITH PRIMARY RN AT BED SIDE, OFFER WOUND ASSESSMENT AND WOUND CARE PT. REFUSES. PT IS AAX4 AT THIS TIME.
[2018-09-17 12:00] VITALS: BP 106/64
--- NOTE | 2018-09-17 14:10 | NUR ---
PT WATCHING TV IN BED WITHOUT ANY RESPIRATORY DISTRESS.
[2018-09-17 16:00] VITALS: BP 102/62
--- NOTE | 2018-09-17 17:10 | NUR ---
PT WATCHING TV IN BED WITHOUT ANY RESPIRATORY DISTRESS.
--- NOTE | 2018-09-17 19:25 | NUR ---
RECEIVED TRANSFER BEDSIDE REPORT FROM REGISTERED ASSOCIATE FELIX, FOR PATIENT'S CONTINUITY OF CARE. PATIENT IS ALERT, AWAKE, ORIENTED X 4, IS ON ROOM AIR, HAS RIGHT IJ 3 LUMEN, HAS RIGHT BKA, BILATERAL BURN WOUNDS WITH DRESSING, DRY AND INTACT. PATIENT C/O PAIN 6/10, STATES RATE OF 6 IS THE NORMAL LEVEL FOR HIS CHRONIC PAIN. WILL MEDICATE PATIENT ORDERED AND SCHEDULED. PATIENT HAS LEFT SIDE COLOSTOMY BAG. BED IS IN LOW POSITION, SIDE RAILS ARE UP, AND CALL LIGHT WITHIN REACH. 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 WILL MONITOR PATIENT THROUGHOUT SHIFT.
[2018-09-17 20:00] VITALS: BP 91/51
--- NOTE | 2018-09-17 21:33 | NUR ---
PATIENT C/O PAIN AND N/V. ADMINISTERED IV PUSH PAIN AND ANTI N/V MEDICATIONS. PATIENT TOLERATED THEM WELL. WILL CONTINUE TO MONITOR PATIENT.
[2018-09-17] MEDS: [UNRECOGNIZED DRUG - OTHER] IV SCH ×4 (22:00)
[2018-09-17] MEDS: DEXTROSE IV SCH ×4 (22:00)
[2018-09-17] MEDS: MULTIVITAMIN IV SCH ×4 (22:00)
[2018-09-17] MEDS: AMINO ACIDS IV SCH ×4 (22:00)
--- NOTE | 2018-09-17 22:00 | NUR ---
HUNG TPN IV ORDERED. PATIENT STATES ZOFRAN AND DILAUDID HELP DECREASE PAIN TO 6.
[2018-09-18] VITALS: BP 102/66
--- NOTE | 2018-09-18 00:35 | NUR ---
PATIENT CALLED FOR PAIN AND NAUSEA MEDICATIONS. ADMINISTERED IV PUSH MEDICATIONS ORDERED, PATIENT TOLERATED THEM WELL. WILL CONTINUE TO MONITOR PATIENT.
[2018-09-18] MEDS: ONDANSETRON 4 MG/2 ML VIAL IVP PRN ×6 (00:41→23:13)
[2018-09-18] MEDS: HYDROmorphone PFS 4 MG/ML SYR IVP PRN ×10 (00:42→23:14)
[2018-09-18] MEDS: PIPERACILLIN/TAZOBACTAM 2.25 GM in DEXTROSE 5% 50 ML IV SCH ×5 (00:51→23:19)
--- NOTE | 2018-09-18 02:57 | NUR ---
PATIENT C/O PAIN AND N/V. ADMINISTERED IV PUSH MEDICATIONS ORDERED FOR PAIN AND N/V. PATIENT TOLERATED IT WELL. WILL CONTINUE TO MONITOR PATIENT.
[2018-09-18 04:00] VITALS: BP 107/58
--- NOTE | 2018-09-18 04:54 | NUR ---
ADMINISTERED IV PUSH PAIN MEDICATION ORDERED. PATIENT TOLERATED IT WELL. WILL CONTINUE TO MONITOR PATIENT.
--- NOTE | 2018-09-18 06:00 | NUR ---
ADMINISTERED IV ANTIBIOTICS ORDERED. BLOOD GLUCOSE CHECKED AND CHARTED. PATIENT AWAKE WATCHING TV AND DENIES PAIN AT THIS TIME. NO OTHER REQUESTS AT THIS TIME. WILL ENDORSE PATIENT TO AM SHIFT RN FOR PATIENT'S CONTINUITY OF CARE.
[2018-09-18] MEDS: BLOOD GLUCOSE MONITORING 1 DEV DEV FS SCH ×4 (06:08→18:09)
--- NOTE | 2018-09-18 07:25 | NUR ---
RECEIVED REPORT FROM LABORER PRESTRESSED CONCRETE NURSE AT BEDSIDE FOR CONTINUITY OF CARE. PATIENT IS ALERT, AWAKE, ORIENTED X 4, IS ON ROOM AIR, HAS RIGHT IJ 3 LUMEN, HAS RIGHT BKA, BILATERAL BURN WOUNDS WITH DRESSING, DRY AND INTACT. PATIENT C/O PAIN 8/10, STATES RATE OF 6 IS THE NORMAL LEVEL FOR HIS CHRONIC PAIN. WILL MEDICATE PATIENT ORDERED AND SCHEDULED. PATIENT HAS LEFT SIDE COLOSTOMY BAG. PATIENT ON MATTRESS BED. SAFETY AND ISOLATION PRECAUTIONS IN PLACE, BED IS IN LOW POSITION, SIDE RAILS ARE UP, AND CALL LIGHT WITHIN REACH. WILL MONITOR PATIENT THROUGHOUT SHIFT.
[2018-09-18 08:00] VITALS: BP 111/66
--- NOTE | 2018-09-18 08:17 | NUR ---
PRN PAIN MEDICATION GIVEN REQUESTED. PATIENT TOLERATED IT WELL. NO COMPLAINTS AT THIS TIME. SAFETY AND ISOLATION PRECAUTIONS IN PLACE, CALL LIGHT WITHIN REACH, WILL CONTINUE TO MONITOR PATIENT.
[2018-09-18] MEDS: fentaNYL 0.05 MG/HR PATCH TD SCH (09:42)
[2018-09-18 10:08] LABS: ANION GAP 11.4 (8-16); CARBON DIOXIDE 28.1 mmol/L (21-32); CREATININE 3.5 mg/dL (0.7-1.3); POTASSIUM 4.5 mmol/L (3.5-5.1)
[2018-09-18 10:13] LABS: MAGNESIUM 2.1 mg/dL (1.8-2.4)
--- NOTE | 2018-09-18 11:40 | NUR ---
BLOOD SUGAR 104, NO COVERAGE NEEDED. ORDERED MEDICATION GIVEN. PATIENT TOLERATED IT WELL. DR. ADAMSON IN TO SPEAK TO THE PATIENT. NO COMPLAINTS AT THIS TIME. SAFETY AND ISOLATION PRECAUTIONS IN PLACE, CALL LIGHT WITHIN REACH, WILL CONTINUE TO MONITOR PATIENT.
[2018-09-18 16:00] LABS: BASOPHILS # (AUTO) 0.1 K/uL (0.00-0.22); BASOPHILS % (AUTO) 0.9 % (0.0-2.0); EOSINOPHILS # (AUTO) 0.5 K/uL (0-0.4); EOSINOPHILS % (AUTO) 6.3 % (0.0-4.0); HEMATOCRIT 27.7 % (36-52); HEMOGLOBIN 8.9 g/dL (12.0-18.0); LYMPHOCYTES # (AUTO) 1.8 K/uL (2.0-11.5); LYMPHOCYTES % (AUTO) 20.7 % (20.5-51.1); MEAN CORPUSCULAR HEMOGLOBIN 28 pg (27-31); MEAN CORPUSCULAR HGB CONC 32 g/dL (33-37); MEAN CORPUSCULAR VOLUME 88.6 fL (80-94); MONOCYTES # (AUTO) 0.7 K/uL (0.8-1.0); MONOCYTES % (AUTO) 8.3 % (1.7-9.3); NEUTROPHILS # (AUTO) 5.5 K/uL (1.8-7.7); NEUTROPHILS % (AUTO) 63.8 % (42.2-75.2); PLATELET COUNT (AUTO) 524 K/uL (140-450); RED BLOOD CELL COUNT(AUTO) 3.12 MIL/uL (4.20-6.10); RED CELL DISTRIBUTION WIDTH 16.6 % (11.6-13.7); WHITE BLOOD COUNT (AUTO) 8.5 K/uL (4.8-10.8)
--- NOTE | 2018-09-18 17:55 | NUR ---
PRN PAIN MEDICATION GIVEN REQUESTED. BLOOD SUGAR 89. ORDERED MEDICATION GIVEN. PATIENT TOLERATED IT WELL. NO COMPLAINTS AT THIS TIME. SAFETY AND ISOLATION PRECAUTIONS IN PLACE, CALL LIGHT WITHIN REACH, WILL CONTINUE TO MONITOR PATIENT.
--- NOTE | 2018-09-18 19:19 | NUR ---
REPORT GIVEN TO MEAT SEAFOOD ASSOCIATE NURSE AT BEDSIDE FOR CONTINUITY OF CARE. FAMILY AT BEDSIDE. PATIENT IN STABLE CONDITION.
--- NOTE | 2018-09-18 19:30 | NUR ---
RECEIVED BEDSIDE REPORT FROM ORLY DENIS FOR PATIENT'S CONTINUITY OF CARE. PATIENT IS AWAKE, ALERT, ORIENTED X 4, WITH FAMILY MEMBER AT BEDSIDE. PATIENT IS ON ROOM AIR, HAS RIGHT IJ IV INFUSING WITH TPN AT 80 ML/HR, HAS LEFT SIDE ABD COLOSTOMY BAG, HAS RIGHT BKA, BLE WOUNDS WITH DRESSING INTACT, WOUND BED IS IN PLACE AN FUNCTIONING, AND STATES PAIN IS AT TOLERABLE LEVEL AT THIS TIME. BED IS IN LOW POSITION, SIDE RAILS ARE UP, AND CALL LIGHT IS WITHIN REACH. WILL MONITOR PATIENT THROUGHOUT SHIFT.
[2018-09-18] MEDS: [UNRECOGNIZED DRUG - OTHER] IV SCH ×4 (20:00)
[2018-09-18] MEDS: AMINO ACIDS IV SCH ×4 (20:00)
[2018-09-18] MEDS: MULTIVITAMIN IV SCH ×4 (20:00)
[2018-09-18] MEDS: DEXTROSE IV SCH ×4 (20:00)
--- NOTE | 2018-09-18 21:00 | NUR ---
ADMINISTERED IV PUSH PAIN MEDICATION ORDERED. PATIENT IS AWAKE, WATCHING TV WITH FAMILY MEMBER AT BEDSIDE. PATIENT TOLERATED IT WELL. TPN STILL INFUSING. WILL REPLENISH WHEN FINISHED.
--- NOTE | 2018-09-18 23:14 | NUR ---
PATIENT CALLED FOR C/O PAIN 9/10, AND NAUSEA. ADMINISTERED IV PUSH MEDICATIONS ORDERED. PATIENT TOLERATED THEM WELL. HUNG IV ANTIBIOTICS. TPN FINISHED INFUSING, HUNG NEW TPN BAG. WILL CONTINUE TO MONITOR PATIENT.
[2018-09-19] VITALS: BP 94/59
[2018-09-19] MEDS: BLOOD GLUCOSE MONITORING 1 DEV DEV FS SCH ×5 (01:05→22:35)
[2018-09-19] MEDS: HYDROmorphone PFS 4 MG/ML SYR IVP PRN ×9 (02:10→22:33)
--- NOTE | 2018-09-19 02:10 | NUR ---
PATIENT CALLED AND C/O OF PAIN. ADMINISTERED IV PUSH PAIN MEDICATION ORDERED. PATIENT TOLERATED IT WELL. EMPTIED COLOSTOMY BAG - 100ML BROWN, LIQUID CONSISTENCY. WILL CONTINUE TO MONITOR PATIENT.
--- NOTE | 2018-09-19 04:18 | NUR ---
PATIENT C/O PAIN. ADMINISTERED IV PUSH PAIN MEDICATION ORDERED. PATIENT DENIES ANY S/S OF N/V. PATIENT TOLERATED MEDICATION WELL. WILL CONTINUE TO MONITOR PATIENT.
[2018-09-19] MEDS: PIPERACILLIN/TAZOBACTAM 2.25 GM in DEXTROSE 5% 50 ML IV SCH ×4 (06:21→23:06)
--- NOTE | 2018-09-19 06:21 | NUR ---
PATIENT C/O PAIN, ADMINISTERED IV PUSH MEDICATION ORDERED. HUNG SCHEDULED IV ABX ORDERED. PATIENT TOLERATED THEM WELL. PATIENT AWAKE, WATCHING TV. WILL ENDORSE TO AM SHIFT RN FOR PATIENT'S CONTINUITY OF CARE.
--- NOTE | 2018-09-19 07:20 | NUR ---
RECEIVED ENDORSEMENT FROM CARDROOM HAND NURSE. PATIENT IS AAOX4, PITCAIRN ISLANDER SPEAKING. RESPIRATIONS ARE EVEN AND UNLABORED ON ROOM AIR. RIGHT IJ TRIPLE LUMEN LINE INTACT, PATENT, AND INFUSING IVF. PATIENT DENIES ANY PAIN AT THIS TIME. PLAN OF CARE WAS REVIEWED WITH PATIENT, PATIENT VERBALIZED UNDERSTANDING. SAFETY MEASURES IN PLACE, CALL LIGHT WITHIN REACH.
[2018-09-19 08:00] VITALS: BP 105/59
[2018-09-19 08:11] LABS: BASOPHILS % (AUTO) 0.4 % (0.0-2.0); EOSINOPHILS # (AUTO) 0.6 K/uL (0-0.4); EOSINOPHILS % (AUTO) 6.1 % (0.0-4.0); HEMATOCRIT 26.8 % (36-52); HEMOGLOBIN 8.8 g/dL (12.0-18.0); LYMPHOCYTES % (AUTO) 21.5 % (20.5-51.1); MEAN CORPUSCULAR HEMOGLOBIN 29 pg (27-31); MEAN CORPUSCULAR HGB CONC 33 g/dL (33-37); MEAN CORPUSCULAR VOLUME 87.9 fL (80-94); MONOCYTES # (AUTO) 0.7 K/uL (0.8-1.0); MONOCYTES % (AUTO) 7.2 % (1.7-9.3); NEUTROPHILS # (AUTO) 6.1 K/uL (1.8-7.7); NEUTROPHILS % (AUTO) 64.8 % (42.2-75.2); PLATELET COUNT (AUTO) 574 K/uL (140-450); RED BLOOD CELL COUNT(AUTO) 3.05 MIL/uL (4.20-6.10); RED CELL DISTRIBUTION WIDTH 15.7 % (11.6-13.7); WHITE BLOOD COUNT (AUTO) 9.4 K/uL (4.8-10.8)
[2018-09-19 08:28] LABS: ANION GAP 11.7 (8-16); CARBON DIOXIDE 27.9 mmol/L (21-32); CREATININE 3.8 mg/dL (0.7-1.3); POTASSIUM 4.6 mmol/L (3.5-5.1)
[2018-09-19 08:32] LABS: MAGNESIUM 2.2 mg/dL (1.8-2.4); PHOSPHORUS 4.6 mg/dL (2.5-4.9)
--- NOTE | 2018-09-19 09:11 | NUR ---
PATIENT SLEEPING, EASILY AROUSABLE. NO COMPLAINS OF PAIN AT THIS TIME. NO OTHER NEEDS AT THIS TIME, WILL CONTINUE TO MONITOR.
[2018-09-19] MEDS: NACL 0.9% 1,000 ML IV SCH ×2 (11:07→23:06)
--- NOTE | 2018-09-19 11:26 | NUR ---
PATIENT RESTING IN BED WATCHING CARTOON. NO OTHER NEEDS AT THIS TIME, WILL CONTINUE TO MONITOR.
--- NOTE | 2018-09-19 11:49 | NUR ---
09/19/18 RD FOLLOW UP COMPLETED PLEASE REFER TO NUTRITION PROGRESS NOTE UNDER CARE ACTIVITY FOR ESTIMATED NUTRITION NEEDS. RD RECOMMENDATIONS: 1. CONTINUE TPN: D12.5%, AA 4.25% AT 80 ML/HR AND LIPIDS 10% (200 ML). -THIS WILL PROVIDE PATIENT WITH 1342 KCAL, 81 GM OF PROTEIN 2. IF G-TUBE PLACEMENT IS DONE, RECOMMEND VITAL AF 1.2 @ 75 ML/HR WITH FREE WATER FLUSH OF 175 ML Q6H 3. CONTINUE BLAND/SOFT DIET 4. CONTINUE RODRIGUEZ BID 5. RD WILL FOLLOW UP 2-3 DAYS, HIGH RISK ANGELA COLE, , RDN
--- NOTE | 2018-09-19 12:20 | NUR ---
ADMINISTERED SCHEDULED MEDICATIONS. PATIENT TOLERATED WELL. NO OTHER NEEDS AT THIS TIME, WILL CONTINUE TO MONITOR.
--- NOTE | 2018-09-19 14:59 | NUR ---
OFFERED TO CHANGE PATIENTS LINEN AND REPOSITION. PATIENT REFUSED. PER SUMMER SESSIONS DIRECTOR, PATIENT HAS BEEN REFUSING TO BE TURNED DESPITE EDUCATION ON PRESSURE ULCERS. Addendum: 09/19/18 at 1500 by Virginia Garcia RN NO OTHER NEEDS AT THIS TIME, WILL CONTINUE TO MONITOR. Addendum: 09/19/18 at 1513 by Virginia Garcia RN MOM PRESENT AT BEDSIDE.
[2018-09-19 16:00] VITALS: BP 107/65
--- NOTE | 2018-09-19 16:40 | NUR ---
PATIENT RESTING IN BED. NO OTHER NEEDS AT THIS TIME, WILL CONTINUE TO MONITOR.
--- NOTE | 2018-09-19 17:32 | NUR ---
ADMINISTERED SCHEDULED MEDICATION. PATIENT TOLERATED WELL. NO OTHER NEEDS AT THIS TIME, WILL CONTINUE TO MONITOR.
--- NOTE | 2018-09-19 19:26 | NUR ---
ENDORSED TO WORLD LANGUAGE TEACHER NURSE FOR CONTINUITY OF CARE. PATIENT IS STABLE AT THIS TIME.
--- NOTE | 2018-09-19 19:27 | NUR ---
RECEIVED BEDSIDE REPORT FROM SUKINJFILIBERTO ANDERSON. A/O X4 PERSON PLACE TIME AND EVENT. MOTHER AT BEDSIDE. DISCUSSED PLAN OF CARE. VERBALIZED UNDERSTANDING. MAKES NEEDS KNOWN. ROOM AIR. NO SIGNS OF RESP DISTRESS. CONTACT PRECAUTIONS. SKIN IS NON INTACT. R BKA. GONZALES TO LOWER EXTREMITIES. RJUGULAR TRIPLE LUMEN. INFUSING NS @75.AND TPN @80. PATENT AND INTACT. BED IN LOWEST POSITION. CALL LIGHT WITHIN REACH. WILL CONTINUE TO MONITOR.
[2018-09-19] MEDS: [UNRECOGNIZED DRUG - OTHER] IV SCH ×4 (20:33)
[2018-09-19] MEDS: AMINO ACIDS IV SCH ×4 (20:33)
[2018-09-19] MEDS: MULTIVITAMIN IV SCH ×4 (20:33)
[2018-09-19] MEDS: DEXTROSE IV SCH ×4 (20:33)
--- NOTE | 2018-09-19 20:33 | NUR ---
MOTHER AT BEDSIDE. REPLACED TPN. RUNNING AT 80. TOLERATED WELL. WILL CONTINUE TO MONITOR.
--- NOTE | 2018-09-19 23:07 | NUR ---
ADMINISTERED SCHEDULED ANTIBIOTICS. EDUCATED ON SIDE EFFECTS. VERBALIZED UNDERSTANDING. TOLERATED WELL. WILL CONTINUE TO MONITOR.
[2018-09-20] VITALS: BP 108/63
[2018-09-20] MEDS: HYDROmorphone PFS 4 MG/ML SYR IVP PRN ×8 (00:42→22:14)
--- NOTE | 2018-09-20 01:00 | NUR ---
PT REFUSED WOUND CARE. STATES DR CAICEDO DOES WOUND CARE FOR PT.
--- NOTE | 2018-09-20 01:42 | NUR ---
PT REFUSES TO BE REPOSITIONED. STATES HE WILL REPOSITION HIMSELF THROUGH THE SHIFT.
--- NOTE | 2018-09-20 03:30 | NUR ---
PT IS RESTING WATCHING TV. NO SIGNS OF DISTRESS. BED IN LOWEST POSITION. CALL LIGHT WITHIN REACH.
[2018-09-20] MEDS: ONDANSETRON 4 MG/2 ML VIAL IVP PRN ×3 (03:41→22:15)
--- NOTE | 2018-09-20 05:01 | NUR ---
PT IS SLEEPING WITH NO SIGNS OF DISTRESS. ABLE TO MAKE NEEDS KNOWN. CALL LIGHT WITHIN REACH. WILL CONTINUE TO MONITOR.
[2018-09-20] MEDS: PIPERACILLIN/TAZOBACTAM 2.25 GM in DEXTROSE 5% 50 ML IV SCH (06:00)
--- NOTE | 2018-09-20 06:00 | NUR ---
LAB AT BEDSIDE.
[2018-09-20] MEDS: BLOOD GLUCOSE MONITORING 1 DEV DEV FS SCH ×3 (06:10→18:05)
--- NOTE | 2018-09-20 06:21 | NUR ---
WILL ENDORSE PT TO DAYSHIFT RN FOR CONTINUITY OF CARE. PT IS IN STABLE CONDITION. BED IN LOWEST POSITION. CALL LIGHT WITHIN REACH. NO SIGNS OF DISTRESS.
--- NOTE | 2018-09-20 06:49 | NUR ---
JOSE RAFAEL FROM OR CALLED TO INFORM PT NOT TO EAT BREAKFAST DUE TO PROCEDURE LATER DURING THE DAY. WILL ENDORSE TO AM GÉNESIS.
[2018-09-20 07:00] LABS: ANION GAP 9.7 (8-16); CARBON DIOXIDE 27.4 mmol/L (21-32); CREATININE 3.5 mg/dL (0.7-1.3); POTASSIUM 4.1 mmol/L (3.5-5.1)
[2018-09-20 07:08] LABS: PHOSPHORUS 4.1 mg/dL (2.5-4.9)
[2018-09-20 07:25] LABS: BASOPHILS # (AUTO) 0.1 K/uL (0.00-0.22); BASOPHILS % (AUTO) 0.6 % (0.0-2.0); EOSINOPHILS # (AUTO) 0.5 K/uL (0-0.4); EOSINOPHILS % (AUTO) 4.8 % (0.0-4.0); HEMATOCRIT 24.8 % (36-52); HEMOGLOBIN 8.3 g/dL (12.0-18.0); LYMPHOCYTES # (AUTO) 1.6 K/uL (2.0-11.5); LYMPHOCYTES % (AUTO) 16.2 % (20.5-51.1); MEAN CORPUSCULAR HEMOGLOBIN 29 pg (27-31); MEAN CORPUSCULAR HGB CONC 33 g/dL (33-37); MEAN CORPUSCULAR VOLUME 86.7 fL (80-94); MONOCYTES # (AUTO) 0.7 K/uL (0.8-1.0); MONOCYTES % (AUTO) 7.6 % (1.7-9.3); NEUTROPHILS # (AUTO) 6.9 K/uL (1.8-7.7); NEUTROPHILS % (AUTO) 70.8 % (42.2-75.2); PLATELET COUNT (AUTO) 537 K/uL (140-450); RED BLOOD CELL COUNT(AUTO) 2.86 MIL/uL (4.20-6.10); RED CELL DISTRIBUTION WIDTH 15.4 % (11.6-13.7); WHITE BLOOD COUNT (AUTO) 9.8 K/uL (4.8-10.8)
--- NOTE | 2018-09-20 07:28 | NUR ---
RECEIVED REPORT FROM CONTRACT ATTORNEY NURSE FOR CONTINUITY OF CARE PT IN STABLE CONDITION AT THIS TIME.
[2018-09-20 08:00] VITALS: BP 106/52
--- NOTE | 2018-09-20 08:47 | NUR ---
PT IS REFUSING TO BE TURNED AND CHANGED. PT LINENS ARE SOILED AND NEED TO BE CHANGED. WILL TRY AGAIN LATER.
--- NOTE | 2018-09-20 09:45 | NUR ---
POC DISCUSSED WITH IDT AND IDT IS AWARE OF PT. CONTINUE TO REFUSES WOUND CARE WITH NURSES SINCE ADMISSION.
--- NOTE | 2018-09-20 11:05 | NUR ---
DISCHARGE PLANNING SW spoke to Dejuan Allenison, in regards to pt's acceptance. [facility] considering accepting this patient pending meeting with pt and family. Alejandro to facilitate meeting. Dain will continue following up as needed. MINI Marie Ext [phone] Addendum: 09/20/18 at 1517 by Dasia Pederson CM Received a call from [facility], who stated the patient was declined by [facility]. Addendum: 09/20/18 at 1545 by Dasia Pederson CM Contacted ESTELLE Menchaca at to update him about [facility] declining this patient. Nikolai requesting to refer patient to other [facility] locations such as [facility] and [facility]. Per Nikolai, if those facilities decline the patient it's okay to send a referral to [facility] . Dain contacted Alejandro with [facility] who stated he will reach our to [facility] and [facility] and will let us know if pt accepted. Dasia Pederson, [facility] Ext [phone] Addendum: 09/20/18 at 1642 by Dasia Pederson CM Dain received a call from Manuel Allen's liaison, who stated the patient was declined at both facilities. Dain called [facility] and was informed it's not [facility]". A referral was faxed to . Dain will continue following up as needed. Dasia Pederson, [facility] Ext [phone]
--- NOTE | 2018-09-20 11:08 | NUR ---
PT TAKEN TO OR FOR CLEANING AND WOUND CHANGE. LEFT IN STABLE CONDITION.
[2018-09-20] MEDS ORDERED: HYDROmorphone 1 MG/ML AMP IVP PRN (11:50)
[2018-09-20] MEDS ORDERED: ONDANSETRON 4 MG/2 ML VIAL IVP PRN (11:50)
[2018-09-20] MEDS ORDERED: KETAMINE 500 MG/5 ML VIAL ONE (11:53)
--- NOTE | 2018-09-20 12:14 | NUR ---
PT RETURNED FROM OR. VITALS STABLE. PT SLEEPING AT THIS TIME.
[2018-09-20] MEDS: HYDROmorphone PFS 2 MG/ML SYR ONE ×2 (12:45→12:54)
--- NOTE | 2018-09-20 13:29 | NUR ---
TRIED TO CLEAN/TURN/CHANGE PT BUT PT BEGAN TO CRY AND SCREAM. WAS NOT ABLE TO SUCCESSFULLY COMPLETE TASK. WILL TRY AGAIN LATER.
--- NOTE | 2018-09-20 14:45 | NUR ---
DC PLANNING: CM FAXED CLINICAL TO [facility] . ATTEMPTED TO FOLLOW UP WITH [facility] DIRECTOR OF KIDS. HOWEVER, WAS UNAVAILABLE. CM TO FOLLOW UP NEEDED. Addendum: 09/20/18 at 1523 by Marily Conde CM RECEIVE A CALL FROM CAMMIE FROM [facility]. THEY WOULD NEED PATIENT TO BE ABLE TO PARTICIPATE AT 3 HOUR OF THERAPY A DAY. FOR WOUND CARE THEY RECOMMEND PATIENT TO HAVE TREATMENT OUTPATIENT.
[2018-09-20] MEDS: NACL 0.9% 1,000 ML IV SCH (14:57)
[2018-09-20 16:00] VITALS: BP 137/71
--- NOTE | 2018-09-20 17:32 | NUR ---
PT RESTING IN BED WITH MOTHER AT BEDSIDE GAVE PT DILAUDID FOR SEVERE PAIN. WILL REASSESS FOR MED EFFECTIVENESS.
--- NOTE | 2018-09-20 19:47 | NUR ---
MEDICATED PATIENT WITH DILAUDID FOR PAIN 9 MOTHER IS AT BEDSIDE. WILL CONTINUE TO ROUND FREQUENTLY.
--- NOTE | 2018-09-20 19:50 | NUR ---
ENDORSED PT TO DIRECTOR MARKETING ANALYTICS FOR CONTINUITY OF CARE. PT IN STABLE CONDITION AT THIS TIME.
--- NOTE | 2018-09-20 19:51 | NUR ---
RECEIVED BEDSIDE REPORT FROM AARON CAPPS . A/O X4 PERSON PLACE TIME AND EVENT. MOTHER AT BEDSIDE. DISCUSSED PLAN OF CARE. VERBALIZED UNDERSTANDING. MAKES NEEDS KNOWN. ROOM AIR. NO SIGNS OF RESP DISTRESS. CONTACT PRECAUTIONS. SKIN IS NON INTACT. R BKA. HEALED GONZALES TO SHAMEKA ARMS NECK AND CHEST. S/P SKIN GRAFT ON BLE DRESSING IS C/I. RJUGULAR TRIPLE LUMEN. INFUSING NS @75.AND TPN @80. PATENT AND INTACT. BED IN LOWEST POSITION. CALL LIGHT WITHIN REACH. WILL CONTINUE TO MONITOR.
[2018-09-20] MEDS: AMINO ACIDS IV SCH ×4 (20:40)
[2018-09-20] MEDS: [UNRECOGNIZED DRUG - OTHER] IV SCH ×4 (20:40)
[2018-09-20] MEDS: DEXTROSE IV SCH ×4 (20:40)
[2018-09-20] MEDS: MULTIVITAMIN IV SCH ×4 (20:40)
--- NOTE | 2018-09-20 22:14 | NUR ---
MEDICATED PATIENT FOR PAIN 10 AND ZOFRAN. ALL SAFETY MEASURES ARE IN PLACE.MOTHER IS AT BEDSIDE AWARE OF VISITING HOURS. ALL NEEDS MET AT THIS TIME. CALL LIGHT IS WITHIN REACH. WILL CONTINUE TO MONITOR.
[2018-09-20 23:40] VITALS: BP 112/67
--- NOTE | 2018-09-20 23:42 | NUR ---
VITAL SIGNS ARE WITHIN NORMAL LIMITS. BLOOD SUGAR IS 103. GAVE SALT CRACKERS UPON REQUEST. ALL NEEDS MET AT THIS TIME. PATIENT REFUSED TO BE TURN EDUCATED PT ON REASON AND IMPORTANCE FOR PRESSURE ULCER TO HEAL PT VERBALIZED UNDERSTANDING. BUT STILL REFUSED WILL CONTINUE TO MONITOR. CALL LIGHT IS WITHIN REACH.
[2018-09-21] MEDS: BLOOD GLUCOSE MONITORING 1 DEV DEV FS SCH ×4 (00:01→17:38)
[2018-09-21] MEDS: HYDROmorphone PFS 4 MG/ML SYR IVP PRN ×9 (00:25→22:19)
--- NOTE | 2018-09-21 01:00 | NUR ---
PT HAD WOUND DRESSING CHANGE TODAY WITH DR CAICEDO. DRESSING IS C/D/I. PT REFUSED TO BE TURN STATES HE TURNS HIMSELF THROUGH OUT THE NIGHT. WILL TRY AGAIN LATER. CALL LIGHT IS WITHIN REACH.
[2018-09-21] MEDS: ONDANSETRON 4 MG/2 ML VIAL IVP PRN ×2 (02:54→08:35)
--- NOTE | 2018-09-21 03:00 | NUR ---
PT IS SLEEPING COMFORTABLY IN BED. CHEST RISE AND FALL. CALL LIGHT IS WITHIN REACH. WILL CONTINUE TO MONITOR.
[2018-09-21] MEDS: NACL 0.9% 1,000 ML IV SCH (04:50)
--- NOTE | 2018-09-21 05:01 | NUR ---
ADMINISTERED DILAUDID FOR PAIN. BLOOD SUGAR IS 83 NO COVERAGE NEEDED. ALL NEEDS MET AT THIS TIME WILL CONTINUE TO MONITOR. Addendum: 09/21/18 at 0557 by Geeta Avila RN PATIENT KEEPS REFUSING TO BE TURNED STATES HE TURNS ON HIS OWN. WILL TRY AGAIN LATER.
[2018-09-21 07:01] LABS: ANION GAP 12.1 (8-16); CREATININE 3.2 mg/dL (0.7-1.3); POTASSIUM 4.1 mmol/L (3.5-5.1)
[2018-09-21 07:08] LABS: MAGNESIUM 1.9 mg/dL (1.8-2.4); PHOSPHORUS 3.7 mg/dL (2.5-4.9)
--- NOTE | 2018-09-21 07:20 | NUR ---
GAVE BEDSIDE REPORT TO DAY RN. PT ENDORSED IN STABLE CONDITION.
--- NOTE | 2018-09-21 07:25 | NUR ---
RECEIVED PT FROM WAX CUTTER NURSE, PT IS AWAKE LYING ON THE BED WITH SIDE RAILS UP AND CALL LIGHT WITHIN REACH, PT HAS A RT IJ IN PLACE TRIPLE LUMEN, WITH TPN INFUSING AT 80ML/HR, AND NS INFUSING AT 75ML/HR, PT HAS A RT LEG WOUND REINFORCED WITH A DRESSING, PT HAS A COLOSTOMY BAG IN PLACE, NO SIGN OF DISTRESS NOTED AND WILL MONITOR PT.
[2018-09-21 08:00] VITALS: BP 122/71
--- NOTE | 2018-09-21 10:24 | NUR ---
Spoke with Alejandro from [facility] . [facility] is not able [facility] pt at time.
--- NOTE | 2018-09-21 10:45 | NUR ---
PT REFUSED TO BE REPOSITIONED AND REFUSED TO HAVE AN ASSESSMENT OF THE SACRAL PRESSURE ULCER.
--- NOTE | 2018-09-21 11:11 | NUR ---
PT IS AWAKE AND V/S WAS CHECKED AND BP MIS 120/78, PULSE IS 93, O2 SATURATION IS 99%, PAIN MEDICATION WAS GIVEN VIA IV PUSH, BLOOD GLUCOSE CHECK DONE AND RESULT IS 93, NO SIGN OF DISTRESS NOTED AND WILL MONITOR PT.
--- NOTE | 2018-09-21 11:23 | NUR ---
Spoke with Nikolai PERALTA from [facility] and informed him that [facility] is not able to take pt at this time. Nikolai gave another contracted facility [facility]. Clinicals faxed to [facility] .
--- NOTE | 2018-09-21 12:15 | NUR ---
SULEMA E TO THE PT'S ROM WITH VIANCA SINGH AND FOUND THE CENTRAL LINE ON THE BED BESIDE THE PT. SITE WAS OCCLUDED WITH A GAUZE AND TRANSPARENT DRESSING. WILL NOTIFY
--- NOTE | 2018-09-21 12:20 | NUR ---
PT'S TPN WAS STOPPED DUE TO PT PULLING THE CENTRAL LINE. WILL INFORM .
--- NOTE | 2018-09-21 12:53 | NUR ---
PAGED DR. GREEN TO INFORM MD THAT PT PULLED OUT HIS CENTRA LINE. AWAITING MD CALL BACK.
--- NOTE | 2018-09-21 13:25 | NUR ---
RECEIVED A CALL BACK FROM DR. GREEN, AND MADE A TELEPHONE ORDER TO INSERT PICC LINE TO PT.
--- NOTE | 2018-09-21 13:27 | NUR ---
CONTACTED ALLAN FROM PICC LINE SERVICE, STATED MYRANDA-PICC LINE NURSE WILL GIVE US A CALL FOR ETA. KORIN-GÉNESIS ASSIGNED MADE AWARE.
--- NOTE | 2018-09-21 13:31 | NUR ---
PICC LINE NURSE CALLED AND SAID THAT SHE WILL BE ARRIVING IN AN HOUR.
--- NOTE | 2018-09-21 15:20 | NUR ---
A MID-LINE CATHETER WAS INSERTED NOW BY PICC LINE NURSE, MYRANDA.
--- NOTE | 2018-09-21 15:53 | NUR ---
Spoke with Subha church from [facility] . Per Subha they will be able to accept the patient only if the wound change doesn't need to be done in OR.
[2018-09-21 16:00] VITALS: BP 126/83
--- NOTE | 2018-09-21 16:10 | NUR ---
Per Dr. Wilson family request anesthesia in OR for wound dressing change.
--- NOTE | 2018-09-21 16:15 | NUR ---
Called Subha church from [facility] informed her that the family wants anesthesia for wound care dressing change. [facility] unable to accept pt at this time.
[2018-09-21] MEDS: DEXT 5% / NACL 0.9% 1,000 ML IV SCH (17:38)
--- NOTE | 2018-09-21 19:10 | NUR ---
ENDORSED PT TO CLINIC LPN NURSE FOR CONTINUITY OF CARE.
--- NOTE | 2018-09-21 19:11 | NUR ---
RECEIVED BEDSIDE REPORT FROM DAY SHIFT NURSE, PT IS AWAKE LYING ON THE BED WITH SIDE RAILS UP. PT'S MOTHER AT BEDSIDE. PT HAS MID-LINE CATHETER WITH DOUBLE LUMEN IN LEFT ARM, TPN HELD UNTIL NEW TPN, COMPATIBLE WITH MID-LINE WILL BE READY, 09/22/181999. D5NS INFUSING AT 100ML/HR, PT HAS A RT LEG WOUND REINFORCED WITH A DRESSING, PT HAS A COLOSTOMY BAG IN PLACE, BOARD UPDATED, BED IN LOW POSITION, CALL LIGHT WITHIN REACH.
--- NOTE | 2018-09-21 20:01 | NUR ---
PT C/O BACK 9/10 PAIN. GIVEN DILAUDID MD ORDERED. PT TOLERATED WELL. WILL CONTINUE TO MONITOR.
--- NOTE | 2018-09-21 20:30 | NUR ---
PT'S MOTHER ASKED TO RENEW FENTANYL PATCH. PAGED DR. GREEN.
--- NOTE | 2018-09-21 20:50 | NUR ---
DR GREEN CALLED. EXPLAINED PREVIOUS FENTANYL . ORDERED RENEW SAME DOSE OF FENTANYL. TORAnia.
[2018-09-21] MEDS: fentaNYL 0.05 MG/HR PATCH TD SCH (22:28)
--- NOTE | 2018-09-21 23:00 | NUR ---
RIGHT UPPER ARM IS ONLY PLACE ABLE TO BE DONE BP CHECK. WHILE BP CHECKING, PT HAS SO MUCH PAIN D/T RIGHT ARM BURN. BP 196/108, NOTIFIED TO DR. GREEN AND RECEIVED ORDER. "CLONIDINE 0.1MG PO PRN Q4H, SBP>160" TORB.
[2018-09-21] MEDS ORDERED: cloNIDine 0.1 MG TAB PO PRN (23:15)
[2018-09-22] MEDS: HYDROmorphone PFS 4 MG/ML SYR IVP PRN ×10 (00:27→23:04)
--- NOTE | 2018-09-22 00:27 | NUR ---
LAB CALLED TO VERIFIED BLOOD DRAWL ORDER. VS CHECKED EXCEPT BLOOD PRESSURE, PT CRYING AND REFUSED TO TAKE BP BECAUSE OF UNBEARABLE PAIN, RIGHT SHOULDER IS ONLY PLACE ABLE TO CHECK BP BECAUSE MID LINE CATHETER ON LEFT ARM, BURN ON BILATERAL LEG. BURN ON RIGHT FOREARM AND UPPER ARM. I AM THE FIRST ONE TO TAKE BP ON RIGHT SHOULDER BECAUSE MID LINE CATHETER PLACED IN 09/21/18 1800. IT SEEMS CHECKING BP ON RIGHT SHOULDER CAME IN INACCURATE RESULT BECAUSE PT'S BP HAS BEEN STABLE WHEN TAKING BP ON LEFT ARM AND WHEN TAKING BP ON RIGHT SHOULDER PT MOVING A LOT AND UNBEARABLE PAIN NOTED. RN WANTS TO HOLD CLONIDINE BECAUSE IT IS NOT RIGHT RESULT AND NOT ABLE TO REASSESS CURRENT BLOOD PRESSURE. CALLED DR. GREEN TO NOTIFY THE ISSUE AND VERIFY LAB ORDER BUT SAID "I AM SO BUSY AND DO NOT CALL ME [facility]." AND HUNG UP THE PHONE. NOT ABLE TO REPORT. PT C/O 9/10 PAIN. GIVEN DILAUDID MD ORDERED.
[2018-09-22] MEDS: BLOOD GLUCOSE MONITORING 1 DEV DEV FS SCH ×4 (00:35→18:22)
--- NOTE | 2018-09-22 00:35 | NUR ---
BS CHECKED, 88. NO INSULIN COVERAGE NEEDED.
--- NOTE | 2018-09-22 01:00 | NUR ---
PT REFUSED TO BE REPOSITIONED AND REFUSED TO HAVE AN ASSESSMENT OF THE SACRAL PRESSURE ULCER.
[2018-09-22] MEDS: DEXT 5% / NACL 0.9% 1,000 ML IV SCH ×2 (02:57→12:55)
[2018-09-22] MEDS: ONDANSETRON 4 MG/2 ML VIAL IVP PRN ×3 (02:58→21:04)
--- NOTE | 2018-09-22 02:58 | NUR ---
PT C/O 10/19 PAIN AND NAUSEA. GIVEN DILAUDID AND ZOFRAN MD ORDERED. PT TOLERATED WELL. WILL CONTINUE TO MONITOR.
--- NOTE | 2018-09-22 05:46 | NUR ---
BS CHECKED, 73. PROVIDED 1PACK OF ORANGE JUICE. PT TOLERATED WELL. WILL CONTINUE TO MONITOR. Addendum: 09/22/18 at 0704 by Angelita Jeffery RN PT C/O / PAIN, GIVEN DILAUDID MD ORDERED. PT TOLERATED WELL.
--- NOTE | 2018-09-22 06:30 | NUR ---
PT LYING IN BED, AWAKE, NO ACUTE DISTRESS NOTED. BED IN LOW POSITION. CALL LIGHT WITHIN REACH.
--- NOTE | 2018-09-22 07:40 | NUR ---
PATIENT SEEN RESTING IN BED. OFF TPN, ON D5NS. NO ACUTE DISTRESS NOTED. PICC LINE NOTED. PATENT. BEDREST. PATIENT CONTINUES TO REFUSE CHANGING OF POSITIONS, PT AWARE OF RISKS ASSOCIATED, VERBALIZED UNDERSTANDING.CALL LIGHT WITHIN REACH.
[2018-09-22 09:25] LABS: BASOPHILS # (AUTO) 0.1 K/uL (0.00-0.22); BASOPHILS % (AUTO) 0.7 % (0.0-2.0); EOSINOPHILS # (AUTO) 0.2 K/uL (0-0.4); EOSINOPHILS % (AUTO) 2.6 % (0.0-4.0); HEMATOCRIT 24.6 % (36-52); LYMPHOCYTES # (AUTO) 1.8 K/uL (2.0-11.5); LYMPHOCYTES % (AUTO) 18.5 % (20.5-51.1); MEAN CORPUSCULAR HEMOGLOBIN 29 pg (27-31); MEAN CORPUSCULAR HGB CONC 33 g/dL (33-37); MEAN CORPUSCULAR VOLUME 87.4 fL (80-94); MONOCYTES # (AUTO) 0.7 K/uL (0.8-1.0); MONOCYTES % (AUTO) 7.5 % (1.7-9.3); NEUTROPHILS # (AUTO) 6.8 K/uL (1.8-7.7); NEUTROPHILS % (AUTO) 70.7 % (42.2-75.2); PLATELET COUNT (AUTO) 580 K/uL (140-450); RED BLOOD CELL COUNT(AUTO) 2.81 MIL/uL (4.20-6.10); RED CELL DISTRIBUTION WIDTH 16.1 % (11.6-13.7); WHITE BLOOD COUNT (AUTO) 9.6 K/uL (4.8-10.8)
--- NOTE | 2018-09-22 09:47 | NUR ---
DISCHARGE PLANNING Call made to Subha, [facility] liaison, to inquire about alternatives for dressing changes under anesthesia for this patient. Subha stated she needs to speak to her wound care team and will contact this Sw with some options. Sw will continue following up as needed. Dasia Pederson, ACSW Ext [phone]
[2018-09-22 10:12] LABS: MAGNESIUM 1.7 mg/dL (1.8-2.4); PHOSPHORUS 4.4 mg/dL (2.5-4.9)
[2018-09-22 10:13] LABS: ANION GAP 11.5 (8-16); CARBON DIOXIDE 25.5 mmol/L (21-32)
--- NOTE | 2018-09-22 11:16 | NUR ---
CONTACTED LETOHATCHEE WOUND CARE NURSE OF [facility] AT [phone], NO ANSWER. LEFT VOICE MESSAGE OF CONTACT INFO
--- NOTE | 2018-09-22 12:06 | NUR ---
PATIENT SEEN RESTING IN BED, NO ACUTE DISTRESS NOTED.
--- NOTE | 2018-09-22 12:32 | NUR ---
RECEIVED A CALL FROM UNIQUE, WOUND CARE NURSE FROM [facility]. ALL INFORMATION REGARDING WOUNDS PROVIDED TO HER. SHE STATED THAT SHE WILL DISCUSS THE CASE WITH HER CNO AND WILL GIVE ME A CALL.
[2018-09-22] MEDS ORDERED: MAG SULF 2000 MG/WATER PREMIX 50 ML IV SCH (14:15)
--- NOTE | 2018-09-22 14:20 | NUR ---
PATIENT CONTINUES TO REFUSE BEING TURNED. ON WOUND CARE BED. NO ACUTE DISTRESS NOTED AT THIS TIME.
[2018-09-22] MEDS ORDERED: MAG SULF 2000 MG/WATER PREMIX 50 ML IV ONE (15:00)
[2018-09-22 16:00] VITALS: BP 123/80
--- NOTE | 2018-09-22 16:05 | NUR ---
09/22/18 RD FOLLOW UP COMPLETED PLEASE REFER TO NUTRITION ASSESSMENT UNDER CARE ACTIVITY FOR ESTIMATED NUTRITIONAL NEEDS. 1. CONTINUE TPN: D10%, AA 3.25% AT 80 ML/HR AND LIPIDS 10% (200 ML). -THIS WILL PROVIDE PATIENT WITH 1102 KCAL, 62GM OF PROTEIN 2. CONTINUE BLAND/SOFT DIET -THIS PROVIDES APPROXIMATELY 1714 KCAL AND 90 GM OF PROTEIN 3. CONTINUE RODRIGUEZ BID 4. RD WILL FOLLOW UP 2-3 DAYS, HIGH RISK ALEXEI JOHNSTON RD
--- NOTE | 2018-09-22 17:30 | NUR ---
PATIENT'S MOTHER AT BEDSIDE. ASSISTED PATIENT WITH BEDBATH/SKIN CARE. NO ACUTE DISTRESS NOTED.
--- NOTE | 2018-09-22 19:24 | NUR ---
SBAR REPORT GIVEN AT PT BEDSIDE. PATIENT RESTING IN BED, MOTHER AT BEDSIDE. NO ACUTE DISTRESS NOTED.
--- NOTE | 2018-09-22 19:25 | NUR ---
RECEIVED BEDSIDE REPORT FROM DAY SHIFT NURSE, JAYSHREE. PT IS AWAKE LYING ON THE BED WITH SIDE RAILS UP. PT'S MOTHER AT BEDSIDE. NO S/S OF SOB NOTED IN ROOM AIR. PT HAS N/V, WILL ADMINISTER MED. PT HAS MID-LINE CATHETER WITH DOUBLE LUMEN IN LEFT ARM, TPN WILL BE START AT 1999. D5NS INFUSING AT 100ML/HR NOW BUT WILL BE CHANGED TO NS @42MLS AT 1999. PT HAS A RT LEG WOUND REINFORCED WITH A DRESSING, PT HAS A COLOSTOMY BAG IN PLACE, BOARD UPDATED, BED IN LOW POSITION, CALL LIGHT WITHIN REACH.
--- NOTE | 2018-09-22 19:45 | NUR ---
PT REFUSED TO BE REPOSITIONED AND REFUSED TO HAVE AN ASSESSMENT OF THE SACRAL PRESSURE ULCER.
[2018-09-22] MEDS ORDERED: DEXTROSE IV SCH ×4 (20:00)
[2018-09-22] MEDS ORDERED: AMINO ACIDS IV SCH ×4 (20:00)
[2018-09-22] MEDS ORDERED: [UNRECOGNIZED DRUG - OTHER] IV SCH ×4 (20:00)
[2018-09-22] MEDS ORDERED: MULTIVITAMIN IV SCH ×4 (20:00)
[2018-09-22] MEDS: NACL 0.9% 1,000 ML IV SCH (20:51)
--- NOTE | 2018-09-22 20:51 | NUR ---
GIVEN TPN @ 80MLS, NS FLUID @ 42MLS. PT TOLERATED WELL. PT C/O / PAIN AND N/V. GIVEN DILAUDID AND ZOFRAN MD ORDERED. PT TOLERATED WELL. WILL CONTINUE TO MONITOR.
--- NOTE | 2018-09-22 23:04 | NUR ---
PT C/O LEG AND BACK PAIN 10/19, GIVEN DILAUDID MD ORDERED. PT TOLERATED WELL. WILL CONTINUE TO MONITOR.
[2018-09-23] VITALS: BP 126/81
--- NOTE | 2018-09-23 | NUR ---
VS CHECKED, WITHIN NORMAL RANGE. BS CHECKED, 75, NO INSULIN COVERAGE NEEDED.
[2018-09-23] MEDS: BLOOD GLUCOSE MONITORING 1 DEV DEV FS SCH ×4 (00:19→18:01)
[2018-09-23] MEDS: HYDROmorphone PFS 4 MG/ML SYR IVP PRN ×9 (00:54→22:19)
--- NOTE | 2018-09-23 00:54 | NUR ---
PT C/O LEG AND BACK PAIN 10/19, GIVEN DILAUDID MD ORDERED. PT TOLERATED WELL. WILL CONTINUE TO MONITOR.
[2018-09-23] MEDS: ONDANSETRON 4 MG/2 ML VIAL IVP PRN ×3 (02:38→13:48)
--- NOTE | 2018-09-23 02:44 | NUR ---
PT C/O N/V AND PAIN ON LEG AND BACK 10/19. GIVEN DILAUDID AND ZOFRAN MD ORDERED. WILL CONTINUE TO MONITOR.
--- NOTE | 2018-09-23 04:15 | NUR ---
PT SLEEPING IN BED. BREATHING EVEN AND UNLABORED. BED IN LOW POSITION.
--- NOTE | 2018-09-23 06:30 | NUR ---
PT C/O 10/19 BACK AND LEG PAIN, AND N/V. GIVEN DILAUDID AND ZOFRAN MD ORDERED. WILL CONTINUE TO MONITOR.
--- NOTE | 2018-09-23 07:10 | NUR ---
RECEIVED BEDSIDE REPORT FROM AGRONOMY MANAGER NURSE FOR CONTINUITY OF CARE. PATIENT AWAKE AND WATCHING TV AT THIS TIME. PATIENT IS AAOX4. RESPIRATION EVEN AND UNLABORED ON RA. DENIED PAIN. NO SIGNS OF DISTRESS NOTED. MID LINE DOUBLE LUMENS ON L ARM, INFUSING NS AT 42ML/HR AND TPN 80ML/HR PER MD ORDER. BURNED SKIN ON BODY NOTED, FORREST. R LEFT WOUND NOTED, AND COVER WITH DRESSING, DRESSING CLEAN AND DRY. COLOSTOMY BAG IN PLACE, 1/3 FULL. URANAL BY PATIENT'S SIDE. PATIENT IS BEDREST AND WOUND BED IS ON. DISCUSSED PLAN OF CARE WITH PATIENT AND PATIENT VERBALIZED UNDERSTANDING. SAFETY MEASURES IN PLACE. BED IN LOW POSITION AND CALL LIGHT WITHIN REACH. INSTRUCTED PATIENT TO USE THE CALL LIGHT FOR ANY ASSISTANCE AND PATIENT WAS AWARE.
[2018-09-23 08:00] VITALS: BP 121/73
--- NOTE | 2018-09-23 08:41 | NUR ---
CONTACTED UNIQUE WOUND CARE NURSE OF [facility] AT [phone], NO ANSWER. LEFT VOICE MESSAGE.
--- NOTE | 2018-09-23 09:03 | NUR ---
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 ADMINISTERED PRN PAIN MED PER MD ORDER, PATIENT TOLERATED WELL. PATIENT AWAKE AND WATCHING TV ON BED AT THIS TIME. SAFETY MEASURES IN PLACE. BED IN LOW POSITION AND CALL LIGHT WITHIN REACH. WOUND BED ACTIVE. INSTRUCTED PATIENT TO USE THE CALL LIGHT FOR ANY ASSISTANCE AND PATIENT AWARE.
--- NOTE | 2018-09-23 09:40 | NUR ---
EMPTIED 100 ML FROM OSTOMY'S BAG AND 400 ML FROM URINAL, PATIENT AWAKE AND WATCHING TV ON BED AT THIS TIME. NO SIGNS OF DISTRESS NOTED. SAFETY MEASURES IN PLACE. BED IN LOW POSITION AND CALL LIGHT WITHIN REACH. WOUND BED ACTIVE. INSTRUCTED PATIENT TO USE THE CALL LIGHT FOR ANY ASSISTANCE AND PATIENT AWARE.
[2018-09-23 09:45] LABS: BASOPHILS # (AUTO) 0.1 K/uL (0.00-0.22); BASOPHILS % (AUTO) 0.8 % (0.0-2.0); EOSINOPHILS # (AUTO) 0.3 K/uL (0-0.4); EOSINOPHILS % (AUTO) 3.7 % (0.0-4.0); HEMATOCRIT 24.1 % (36-52); HEMOGLOBIN 7.8 g/dL (12.0-18.0); LYMPHOCYTES % (AUTO) 22.8 % (20.5-51.1); MEAN CORPUSCULAR HEMOGLOBIN 28 pg (27-31); MEAN CORPUSCULAR HGB CONC 33 g/dL (33-37); MEAN CORPUSCULAR VOLUME 87.3 fL (80-94); MONOCYTES # (AUTO) 0.8 K/uL (0.8-1.0); MONOCYTES % (AUTO) 8.7 % (1.7-9.3); NEUTROPHILS # (AUTO) 5.6 K/uL (1.8-7.7); PLATELET COUNT (AUTO) 556 K/uL (140-450); RED BLOOD CELL COUNT(AUTO) 2.76 MIL/uL (4.20-6.10); RED CELL DISTRIBUTION WIDTH 15.8 % (11.6-13.7); WHITE BLOOD COUNT (AUTO) 8.8 K/uL (4.8-10.8)
[2018-09-23 09:58] LABS: ANION GAP 12.9 (8-16); CARBON DIOXIDE 25.1 mmol/L (21-32); CREATININE 2.8 mg/dL (0.7-1.3)
[2018-09-23 10:02] LABS: MAGNESIUM 2.2 mg/dL (1.8-2.4); PHOSPHORUS 4.3 mg/dL (2.5-4.9)
--- NOTE | 2018-09-23 10:26 | NUR ---
PROVIDED A CUP OF ICE REQUEST BY PATIENT. PATIENT AWAKE AND RESTING ON BED AT THIS TIME. DENIED PAIN. NO SIGNS OF DISTRESS NOTED. SAFETY MEASURES IN PLACE. BED IN LOW POSITION AND CALL LIGHT WITHIN REACH. WOUND BED ACTIVE. INSTRUCTED PATIENT TO USE THE CALL LIGHT FOR ANY ASSISTANCE AND PATIENT AWARE.
--- NOTE | 2018-09-23 11:35 | NUR ---
PT COMPLAINED 8/10 PAIN ON HIS R BKA AND BACK, ADMINISTERED PRN PAIN MED, PATIENT TOLERATED WELL. PATIENT AWAKE AND WATCHING TV ON BED. SAFETY MEASURES IN PLACE. BED IN LOW POSITION AND CALL LIGHT WITHIN REACH. WOUND BED ACTIVE. INSTRUCTED PATIENT TO USE THE CALL LIGHT FOR ANY ASSISTANCE AND PATIENT AWARE.
--- NOTE | 2018-09-23 12:18 | NUR ---
CHECKED BLOOD GLUCOSE AND RECEIVED 89. PATIENT AWAKE AND WATCHING TV ON BED AT THIS TIME. NO SIGNS OF DISTRESS NOTED. SAFETY MEASURES IN PLACE. BED IN LOW POSITION AND CALL LIGHT WITHIN REACH. WOUND BED ACTIVE. INSTRUCTED PATIENT TO USE THE CALL LIGHT FOR ANY ASSISTANCE AND PATIENT AWARE.
--- NOTE | 2018-09-23 13:05 | NUR ---
PATIENT REFUSED TO TURN AND REPOSITION FOR WOUND ASSESSMENT ON HIS SACRAL AREA. PATIENT STATED " LAST TIME WHEN I ALLOWED YOU GUYS TO TURN AND PUT PILLOWS ON MY BACK, IT CAUSED TERRIBLE PAIN. I WILL TRY TO WIGGLE MY LEGS AND REPOSITION MY BACK ON MY OWN." EDUCATION PROVIDED TO PATIENT AND PATIENT VERBALIZED UNDERSTANDING. PLACED PILLOWS UNDER BOTH ELBOWS, AND PLACED HEEL PROTECTORS ON BOTH LEGS. PATIENT TOLERATED WELL. NO SIGNS OF DISTRESS NOTED. SAFETY MEASURES IN PLACE. BED IN LOW POSITION AND CALL LIGHT WITHIN REACH. WOUND BED ACTIVATED. INSTRUCTED PATIENT TO USE THE CALL LIGHT FOR ANY ASSISTANCE AND PATIENT AWARE.
[2018-09-23 13:49] VITALS: BP 144/85
--- NOTE | 2018-09-23 13:49 | NUR ---
PATIENT COMPLAINED 9/10 PAIN AROUND HIS R BKA AND BACK. HE ALSO FEELS NAUSEA AFTER LUNCH. CHECKED VITAL SIGNS AND RECEIVED TEMP 98.1, BP 144/85, PULSE 79, AND SPO2 100% ON RA, RR 19. ADMINISTERED PRN PAIN MED AND ZOFRAN, MEDS EDUCATION PROVIDED TO PATIENT ANT PATIENT VERBALIZED UNDERSTANDING. PATIENT AWAKE AND WATCHING TV ON BED. SAFETY MEASURES IN PLACE. BED IN LOW POSITION AND CALL LIGHT WITHIN REACH. WOUND BED ACTIVE. INSTRUCTED PATIENT TO USE THE CALL LIGHT FOR ANY ASSISTANCE AND PATIENT AWARE.
--- NOTE | 2018-09-23 15:56 | NUR ---
LATE ENTRY: RECEIVED A CALL FROM KISHORE FROM [facility], HE STATED THAT [facility] IS NOT ABLE TO ACCEPT THE PATIENT DUE TO [facility] DOES NOT HAVE AN OR.
[2018-09-23 16:00] VITALS: BP 139/79
--- NOTE | 2018-09-23 16:39 | NUR ---
RECEIVED A CALL FROM KISHORE OF [facility], HE STATED THAT HE SPOKE TO HIS DIGITAL FORENSICS EXAMINER AND THE ONLY OPTION RIGHT NOW IS TO PLACE PATIENT IN A SNF AND IF THE PATIENT WILL NEED TO BE TRANSFERRED OUT TO AN ACUTE HOSPITAL FOR DRESSING CHANGES THEY ARE WILLING TO ARRANGE AUTHORIZATION.
--- NOTE | 2018-09-23 16:48 | NUR ---
PT COMPLAINED 8/10 PAIN ON HIS R BKA AND BACK, ADMINISTERED PRN PAIN MED, PATIENT TOLERATED WELL. PATIENT AWAKE AND WATCHING TV ON BED. SAFETY MEASURES IN PLACE. BED IN LOW POSITION AND CALL LIGHT WITHIN REACH. WOUND BED ACTIVATED. BILATERAL HEEL PROTECTORS IN PLACE. INSTRUCTED PATIENT TO USE THE CALL LIGHT FOR ANY ASSISTANCE AND PATIENT AWARE.
--- NOTE | 2018-09-23 18:01 | NUR ---
CHECKED BLOOD GLUCOSE AND RECEIVED 83. PATIENT IS SITTING UP ON BED AND EATING DINNER. NO SIGNS OF DISTRESS NOTED. SAFETY MEASURES IN PLACE. BED IN LOW POSITION AND CALL LIGHT WITHIN REACH. WOUND BED ACTIVATED. INSTRUCTED PATIENT TO USE THE CALL LIGHT FOR ANY ASSISTANCE AND PATIENT AWARE.
[2018-09-23] MEDS: NACL 0.9% 1,000 ML IV SCH ×2 (18:51→20:00)
--- NOTE | 2018-09-23 19:26 | NUR ---
ENDORSED PATIENT AT BEDSIDE TO MARINE STRUCTURAL WELDER NURSE FOR CONTINUITY OF CARE. PATIENT AWAKE AND WATCHING TV ON BED AT THIS TIME. NO SIGNS OF DISTRESS NOTED. PATIENT IS IN STABLE CONDITION. SAFETY MEASURES IN PLACE.
--- NOTE | 2018-09-23 19:27 | NUR ---
RECEIVED REPORT FROM AM NURSE. PT SITTING UP IN BED WATCHING TV. AA&OX4. ABLE TO ANSWER QUESTIONS AND FOLLOW COMMANDS. VISIBLE CHEST RISE AND FALL ON ROOM AIR, NO DISTRESS NOTED. LEFT UPPER ARM PICC DOUBLE LUMEN INTACT AND INFUSING WELL. ON WOUND BED. URINAL AT BEDSIDE, OSTOMY BAG IN PLACE. FALL PRECAUTIONS IN PLACE, BED IN LOW POSITION AND ALARM ON. CALL LIGHT WITHIN REACH.
[2018-09-23] MEDS: [UNRECOGNIZED DRUG - OTHER] IV SCH ×4 (20:11)
[2018-09-23] MEDS: MULTIVITAMIN IV SCH ×4 (20:11)
[2018-09-23] MEDS: DEXTROSE IV SCH ×4 (20:11)
[2018-09-23] MEDS: AMINO ACIDS 8.5% IV SCH ×4 (20:11)
--- NOTE | 2018-09-23 20:11 | NUR ---
DILAUDID GIVEN FOR 9/10 PAIN. BP ASSESSED BEFORE ADMINISTRATION 124/85, HR 83.
--- NOTE | 2018-09-23 22:19 | NUR ---
DILAUDID GIVEN FOR 9/10 PAIN. WILL CONTINUE TO MONITOR.
[2018-09-24 00:26] VITALS: BP 140/86
[2018-09-24] MEDS: BLOOD GLUCOSE MONITORING 1 DEV DEV FS SCH ×4 (00:26→18:11)
--- NOTE | 2018-09-24 00:26 | NUR ---
VITALS TAKEN. BLOOD GLUCOSE 73 AT THIS TIME. PT HAS JUICE AT BEDSIDE, PT STILL WORKING ON EATING FOOD AT BEDSIDE. WILL CONTINUE TO MONITOR.
[2018-09-24] MEDS: HYDROmorphone PFS 4 MG/ML SYR IVP PRN ×11 (00:47→23:15)
--- NOTE | 2018-09-24 00:47 | NUR ---
DILAUDID GIVEN FOR 9/10 PAIN.
--- NOTE | 2018-09-24 02:13 | NUR ---
CHECKED ON PT. PT AWAKE IN BED, WATCHING TV. NO C/O DISCOMFORT. BREATHING EQUAL AND UNLABORED ON ROOM AIR.
--- NOTE | 2018-09-24 03:03 | NUR ---
DILAUDID GIVEN FOR 9/10 PAIN.
--- NOTE | 2018-09-24 05:31 | NUR ---
DILAUDID GIVEN FOR 9/10 PAIN. PT IN BED WATCHING TV. BROUGHT WATER PER REQUEST. BLOOD GLUCOSE LEVEL 89. VISIBLE CHEST RISE AND FALL ON ROOM AIR. BREATHING EQUAL AND UNLABORED.
--- NOTE | 2018-09-24 07:28 | NUR ---
RECEIVED BEDSIDE REPORT FROM MOLECULAR PATHOLOGIST NURSE FOR CONTINUITY OF CARE. PATIENT AWAKE AND WATCHING TV AT THIS TIME. PATIENT IS AAOX4. RESPIRATION EVEN AND UNLABORED ON RA. DENIED PAIN. NO SIGNS OF DISTRESS NOTED. MID LINE DOUBLE LUMENS ON L ARM, INFUSING NS AT 22ML/HR AND TPN 100ML/HR PER MD ORDER. BURNED SKIN ON UPPER BODY NOTED, FORREST. BILATERL LEGS WOUND NOTED, AND COVER WITH DRESSING, DRESSING CLEAN AND DRY. OSTOMY BAG IN PLACE, URANAL BY PATIENT'S SIDE. PATIENT IS BEDREST AND WOUND BED IS ON. DISCUSSED PLAN OF CARE WITH PATIENT AND PATIENT VERBALIZED UNDERSTANDING. SAFETY MEASURES IN PLACE. BED IN LOW POSITION AND CALL LIGHT WITHIN REACH. INSTRUCTED PATIENT TO USE THE CALL LIGHT FOR ANY ASSISTANCE AND PATIENT WAS AWARE.
[2018-09-24 08:00] VITALS: BP 125/78
--- NOTE | 2018-09-24 08:03 | NUR ---
PATIENT COMPLAINED 9/10 PAIN AROUND HIS R BKA AND BACK. ADMINISTERED PRN PAIN MED, MED EDUCATION PROVIDED TO PATIENT ANT PATIENT VERBALIZED UNDERSTANDING. PATIENT AWAKE AND WATCHING TV ON BED. SAFETY MEASURES IN PLACE. BED IN LOW POSITION AND CALL LIGHT WITHIN REACH. WOUND BED ACTIVATED. INSTRUCTED PATIENT TO USE THE CALL LIGHT FOR ANY ASSISTANCE AND PATIENT AWARE.
--- NOTE | 2018-09-24 09:20 | NUR ---
PATIENT REFUSED TO BE TURN AND REPOSITION AND STATED " I ONLY WANT DR CAICEDO TO CHANGE MY DRESSING AND HE SAID HE WILL DO IT EVERY THURSDAY. I CAN WIGGLE MY LEGS AND MY BODY BY MYSELF." EDUCATION PROVIDED TO PATIENT ON REGARD OF PRESSURE ULCER AND SKIN BREAKDOWN, PATIENT VERBALIZED OK, BUT INSISTED OF NOT BEING REPOSITION. APPLIED BILATERAL HEEL PROTECTORS AND CHANGE THE TOWELS UNDER PATIENT'S ARM. SAFETY MEASURES IN PLACE. BED IN LOW POSITION AND CALL LIGHT WITHIN REACH. WOUND BED ACTIVATED. INSTRUCTED PATIENT TO USE THE CALL LIGHT FOR ANY ASSISTANCE AND PATIENT WAS AWARE.
--- NOTE | 2018-09-24 10:19 | NUR ---
PATIENT COMPLAINED 9/10 PAIN AROUND HIS R BKA AND BACK. ADMINISTERED PRN PAIN MED, MED EDUCATION PROVIDED TO PATIENT ANT PATIENT VERBALIZED UNDERSTANDING. PATIENT AWAKE AND WATCHING TV ON BED. BILATERAL HEEL PROTECTORS IN PLACE. EMPTIED PATIENT'S OSTOMY BAG AND COLLECTED 100 ML SOFT STOOL. PROVIDED CUP OF ICE REQUEST BY PATIENT. SAFETY MEASURES IN PLACE. BED IN LOW POSITION AND CALL LIGHT WITHIN REACH. WOUND BED ACTIVATED. INSTRUCTED PATIENT TO USE THE CALL LIGHT FOR ANY ASSISTANCE AND PATIENT AWARE.
[2018-09-24 10:53] LABS: BASOPHILS # (AUTO) 0.1 K/uL (0.00-0.22); EOSINOPHILS # (AUTO) 0.4 K/uL (0-0.4); EOSINOPHILS % (AUTO) 4.4 % (0.0-4.0); HEMATOCRIT 23.3 % (36-52); HEMOGLOBIN 7.6 g/dL (12.0-18.0); LYMPHOCYTES # (AUTO) 2.1 K/uL (2.0-11.5); LYMPHOCYTES % (AUTO) 25.6 % (20.5-51.1); MEAN CORPUSCULAR HEMOGLOBIN 28 pg (27-31); MEAN CORPUSCULAR HGB CONC 33 g/dL (33-37); MEAN CORPUSCULAR VOLUME 86.7 fL (80-94); MONOCYTES # (AUTO) 0.8 K/uL (0.8-1.0); PLATELET COUNT (AUTO) 526 K/uL (140-450); RED BLOOD CELL COUNT(AUTO) 2.69 MIL/uL (4.20-6.10); RED CELL DISTRIBUTION WIDTH 15.7 % (11.6-13.7); WHITE BLOOD COUNT (AUTO) 8.3 K/uL (4.8-10.8)
--- NOTE | 2018-09-24 11:15 | NUR ---
OFFERED TO CHANGE PATIENTS LINEN AND REPOSITION. PATIENT REFUSED. PATIENT STATED, " PLEASE DO NOT REPOSITION ME, YOU GUYS WILL MAKE ME IN PAIN. I DON'T WANT TO CHANGE ANYTHING." EDUCATION PROVIDED TO PATIENT ON REGARDS OF PRESSURES ULCER AND SKIN BREAKDOWN. PATIENT VERBALIZED UNDERSTANDING. SAFETY MEASURES IN PLACE. BED IN LOW POSITION AND CALL LIGHT WITHIN REACH. WOUND BE ACTIVATED. INSTRUCTED PATIENT TO USE THE CALL LIGHT FOR ANY ASSISTANCE AND PATIENT WAS AWARE.
--- NOTE | 2018-09-24 11:48 | NUR ---
PATIENT AWAKE AND RESTING ON BED AT THIS TIME. NO SIGNS OF DISTRESS NOTED. SAFETY MEASURES IN PLACE. WOUND BED ACTIVATED. BED IN LOW POSITION AND CALL LIGHT WITHIN REACH. INSTRUCTED PATIENT TO USE THE CALL LIGHT FOR ANY ASSISTANCE AND PT AWARE.
--- NOTE | 2018-09-24 12:05 | NUR ---
PATIENT AWAKE AND TALKING TO MOTHER AT BEDSIDE. INSTRUCTED MOTHER TO PUT ON PPE AT ALL TIME IN PATIENT'S ROOM, AND MOTHER VERBALIZED UNDERSTANDING. NO SIGNS OF DISTRESS NOTED. SAFETY MEASURES IN PLACE. BED IN LOW POSITION AND CALL LIGHT WITHIN REACH. WOUND BED ACTIVATED. INSTRUCTED PATIENT TO USE THE CALL LIGHT FOR ANY ASSISTANCE AND PT WAS AWARE.
[2018-09-24 12:29] LABS: MAGNESIUM 2.1 mg/dL (1.8-2.4)
--- NOTE | 2018-09-24 12:29 | NUR ---
PATIENT COMPLAINED 8/10 PAIN AROUND HIS R BKA AND BACK. ADMINISTERED PRN PAIN MED, MED EDUCATION PROVIDED TO PATIENT ANT PATIENT VERBALIZED UNDERSTANDING. PATIENT AWAKE AND TALKING MOTHER MELITA AT BEDSIDE. SAFETY MEASURES IN PLACE. BED IN LOW POSITION AND CALL LIGHT WITHIN REACH. WOUND BED ACTIVATED. INSTRUCTED PATIENT TO USE THE CALL LIGHT FOR ANY ASSISTANCE AND PATIENT AWARE.
[2018-09-24] MEDS: ONDANSETRON 4 MG/2 ML VIAL IVP PRN (12:38)
--- NOTE | 2018-09-24 12:38 | NUR ---
PATIENT COMPLAINED OF FEELING NAUSEA AND VOMITING, ADMINISTERED PRN ZOFRAN, PATIENT TOLERATED WELL. PATIENT AWAKE AND TALKING TO MOTHER MELITA AT BEDSIDE. NO SIGNS OF DISTRESS NOTED. SAFETY MEASURES IN PLACE. BED IN LOW POSITION AND CALL LIGHT WITHIN REACH. WOUND BED ACTIVATED. INSTRUCTED PATIENT TO USE THE CALL LIGHT FOR ANY ASSISTANCE AND PATIENT AWARE.
[2018-09-24 12:59] LABS: ANION GAP 9.7 (8-16); CARBON DIOXIDE 29.2 mmol/L (21-32); CREATININE 2.6 mg/dL (0.7-1.3); POTASSIUM 3.9 mmol/L (3.5-5.1)
--- NOTE | 2018-09-24 13:35 | NUR ---
PATIENT REFUSED TO BE TURN AND REPOSITION AND STATED " I ALREADY TOLD YOU NO. I CAN WIGGLE MYSELF." EDUCATION PROVIDED TO PATIENT ON REGARD OF PRESSURE ULCER AND SKIN BREAKDOWN, PATIENT VERBALIZED UNDERSTANDING. SAFETY MEASURES IN PLACE. BED IN LOW POSITION AND CALL LIGHT WITHIN REACH. WOUND BED ACTIVATED. INSTRUCTED PATIENT TO USE THE CALL LIGHT FOR ANY ASSISTANCE AND PATIENT WAS AWARE.
--- NOTE | 2018-09-24 13:54 | NUR ---
DISCHARGE PLANNING Sw called [facility] continuous pillowcase cutter Nikolai Gibbs , recording message stated to contact Beni to discuss SNF placement with outpatient wound care. Beni stated to fax over the referral to all contracted facilities. Referral faxed to [facility], [facility], [facility] and [facility]. Sw called patient's mother to update her about d/c plan . No answer and unable to leave a voicemail due to voicemail full. Dain will continue following up as needed. Symone Pederson [facility] Ext [phone] Addendum: 09/24/18 at 1654 by Dasia Pederson CM Received a call from [facility] indicating they are unable to accept the patient as pt would need to participate in rehab for a minimum of 3 hrs a day. Inquire faxed to [facility], jason Mata, [facility], [facility], [facility], and [facility]. Dasia Pederson, [facility], Ext [phone]
--- NOTE | 2018-09-24 14:51 | NUR ---
PATIENT COMPLAINED 8/10 PAIN AROUND HIS R BKA AND BACK. ADMINISTERED PRN PAIN MED, MED EDUCATION PROVIDED TO PATIENT ANT PATIENT VERBALIZED UNDERSTANDING. PATIENT AWAKE AND WATCHING TV. SAFETY MEASURES IN PLACE. BED IN LOW POSITION AND CALL LIGHT WITHIN REACH. WOUND BED ACTIVATED. INSTRUCTED PATIENT TO USE THE CALL LIGHT FOR ANY ASSISTANCE AND PATIENT AWARE.
--- NOTE | 2018-09-24 14:54 | NUR ---
09/24/18 RD FOLLOW UP COMPLETED PLEASE REFER TO NUTRITION ASSESSMENT UNDER CARE ACTIVITY FOR ESTIMATED NUTRITIONAL NEEDS. 1. CONTINUE TPN: D10%, AA 3.25% AT 80 ML/HR AND LIPIDS 10% (200 ML). -THIS WILL PROVIDE PATIENT WITH 1102 KCAL, 62GM OF PROTEIN 2. CONTINUE BLAND/SOFT DIET 3. CONTINUE RODRIGUEZ BID 4. RECOMMENDED TO PATIENT TO EAT 925 CALORIES AND 25 GM OF PROTEIN FROM HIS DIET PER DAY TO MEET 75% OR GREATER OF ESTIMATED NEEDS 5. RD WILL FOLLOW UP 2-3 DAYS, HIGH RISK ALEXEI JOHNSTON RD
--- NOTE | 2018-09-24 15:40 | NUR ---
PATIENT AWAKE AND WATCHING TV ON BED. RESPIRATION EVEN AND UNLABORED ON RA. NO SIGNS OF DISTRESS NOTED. SAFETY MEASURES IN PLACE. BED IN LOW POSITION AND CALL LIGHT WITHIN REACH. WOUND BED ACTIVATED. INSTRUCTED PATIENT TO USE THE CALL LIGHT FOR ANY ASSISTANCE AND PATIENT WAS AWARE.
[2018-09-24 16:00] VITALS: BP 123/77
--- NOTE | 2018-09-24 16:20 | NUR ---
PATIENT AWAKE AND TALKING TO MOTHER MELITA AT BEDSIDE. NO SIGNS OF DISTRESS NOTED. SAFETY MEASURES IN PLACE. BED IN LOW POSITION AND CALL LIGHT WITHIN REACH. WOUND BED ACTIVATED. INSTRUCTED PATIENT TO USE THE CALL LIGHT FOR ANY ASSISTANCE AND PATIENT WAS AWARE.
--- NOTE | 2018-09-24 17:03 | NUR ---
ATIENT COMPLAINED 8/10 PAIN AROUND HIS R BKA AND BACK. ADMINISTERED PRN PAIN MED, MED EDUCATION PROVIDED TO PATIENT ANT PATIENT VERBALIZED UNDERSTANDING. PATIENT AWAKE AND WATCHING TV ON BED. MOTHER MELITA AT BEDSIDE. SAFETY MEASURES IN PLACE. BED IN LOW POSITION AND CALL LIGHT WITHIN REACH. WOUND BED ACTIVATED. INSTRUCTED PATIENT TO USE THE CALL LIGHT FOR ANY ASSISTANCE AND PATIENT AWARE.
--- NOTE | 2018-09-24 17:56 | NUR ---
ANSWERED PATIENT'S CALL LIGHT. PATIENT ASKED FOR PAIN MED. EXPLAINED TO PATIENT THE LAST PAIN MED WAS GIVEN AT 1703 AND IT WAS SCHEDULE Q2H PRN. PATIENT VERBALIZED UNDERSTANDING AND SAID," OH, IT'S OK. I CAN HOLD UP WITH IT FOR AWHILE." PATIENT AWAKE AND WATCHING TV ON BED. MOTHER MELITA BY BEDSIDE. NO SIGNS OF DISTRESS NOTED. BED IN LOW POSITION AND CALL LIGHT WITHIN REACH. WOUND BED ACTIVATED. INSTRUCTED PATIENT TO USE THE CALL LIGHT FOR ANY ASSISTANCE AND PATIENT WAS AWARE.
--- NOTE | 2018-09-24 18:06 | NUR ---
CHECKED BLOOD GLUCOSE AND RECEIVED 84. PATIENT AWAKE AND WATCHING TV ON BED. MOTHER MELITA BY BEDSIDE. NO SIGNS OF DISTRESS NOTED. BED IN LOW POSITION AND CALL LIGHT WITHIN REACH. WOUND BED ACTIVATED. INSTRUCTED PATIENT TO USE THE CALL LIGHT FOR ANY ASSISTANCE AND PATIENT WAS AWARE.
--- NOTE | 2018-09-24 19:24 | NUR ---
ENDORSED PATIENT AT BEDSIDE TO ENDODONTICS DENTIST NURSE FOR CONTINUITY OF CARE. PATIENT AWAKE AND WATCHING TV ON BED. MOTHER MELITA IS BY BEDSIDE. NO SIGNS OF DISTRESS NOTED. PATIENT IS IN STABLE CONDITION. SAFETY MEASURES IN PLACE. BED IN LOW POSITION AND CALL LIGHT WITHIN REACH. WOUND BED ACTIVATED. INSTRUCTED PATIENT TO USE THE CALL LIGHT FOR ANY ASSISTANCE AND PATIENT AWARE.
--- NOTE | 2018-09-24 19:25 | NUR ---
RECEIVED BEDSIDE REPORT FROM DAY SHIFT NURSE. PT IS AWAKE LYING ON THE BED WITH SIDE RAILS UP. PT'S MOTHER AT BEDSIDE. NO S/S OF SOB NOTED IN ROOM AIR. PT HAS MID-LINE CATHETER WITH DOUBLE LUMEN IN LEFT ARM, RUNNING TPN @ 100MLS/HR, NS @22MLS/HR. POC REVIEWED AND DISCUSSED WITH PT. COLOSTOMY BAG IN PLACE, BOARD UPDATED, BED IN LOW POSITION, CALL LIGHT WITHIN REACH.
[2018-09-24] MEDS: NACL 0.9% 1,000 ML IV SCH (20:00)
[2018-09-24] MEDS: AMINO ACIDS 8.5% IV SCH ×4 (20:06)
[2018-09-24] MEDS: [UNRECOGNIZED DRUG - OTHER] IV SCH ×4 (20:06)
[2018-09-24] MEDS: DEXTROSE IV SCH ×4 (20:06)
[2018-09-24] MEDS: MULTIVITAMIN IV SCH ×4 (20:06)
--- NOTE | 2018-09-24 20:06 | NUR ---
TPN @100 ML/HR, NS @22ML/ HR GIVEN. PT TOLERATED WELL. BED IN LOW POSITION. CALL LIGHT WITHIN REACH. Addendum: 09/25/18 at 0056 by Angelita Jeffery RN PT REFUSED TO BE REPOSITIONED AND REFUSED TO HAVE AN ASSESSMENT OF THE SACRAL PRESSURE ULCER.
--- NOTE | 2018-09-24 21:18 | NUR ---
DILAUDID GIVEN FOR 8/10, LEG PAIN. PT TOLERATED WELL. WILL CONTINUE TO MONITOR.
[2018-09-24] MEDS: fentaNYL 0.05 MG/HR PATCH TD SCH (22:09)
--- NOTE | 2018-09-24 23:15 | NUR ---
DILAUDID GIVEN FOR 8/10, LEG PAIN. PT TOLERATED WELL. WILL CONTINUE TO MONITOR.
[2018-09-25] VITALS: BP 117/73
[2018-09-25] MEDS: BLOOD GLUCOSE MONITORING 1 DEV DEV FS SCH ×4 (00:36→17:41)
--- NOTE | 2018-09-25 00:36 | NUR ---
BS CHECKED, 82. NO INSULIN COVERAGE NEEDED. VS CHECKED, WITHIN NORMAL RANGE. WILL CONTINUE TO MONITOR. BED IN LOW POSITION, CALL LIGHT WITHIN REACH.
[2018-09-25] MEDS: HYDROmorphone PFS 4 MG/ML SYR IVP PRN ×11 (01:21→22:45)
--- NOTE | 2018-09-25 01:21 | NUR ---
PT C/O 09/18 OF LEG AND BACK PAIN. GIVEN DILAUDID. PT TOLERATED WELL. WILL CONTINUE TO MONITOR.
--- NOTE | 2018-09-25 04:06 | NUR ---
PT C/O 09/18 OF LEG AND BACK PAIN. GIVEN DILAUDID. PT TOLERATED WELL. WILL CONTINUE TO MONITOR.
--- NOTE | 2018-09-25 06:18 | NUR ---
BS CHECKED, 84. NO INSULIN COVERAGE NEEDED. PT C/T 09/18 BACK, LEG PAIN. GIVEN DILAUDID MD ORDERED. PT TOLERATED WELL.
[2018-09-25] MEDS: ONDANSETRON 4 MG/2 ML VIAL IVP PRN ×3 (08:16→20:38)
--- NOTE | 2018-09-25 08:24 | NUR ---
RECEIVED BED SIDE REPORT FROM FINGERPRINT EXPERT RN. PT A/O X4, PT HAS GONZALES ON RIGHT ARM AND BILAT LEGS. BILAT LEGS HAS GAUZE WRAPPED AROUND THEM. MINIMAL DRAINAGE NOTED. COLOSTOMY BAG ON LEFT SIDE OF ABDOMEN. SOME BM NOTED. WILL EMPTY LATER. PT RUNNING TPN AT 100CC/HR, ESTIMATED TO BE DONE BY ADINA AT 1999. NS RUNNING AT 22CC/HR. MIDLINE ON LEFT UPPER ARM, DOUBLE LUMEN. NO BLEEDING OR DRAINAGE NOTED ON DRESSING OF MIDLINE. VS STABLE. PT COMPLAINS OF 8/10 ACHING/SQUEEZING PAIN ON RIGHT HIP AND LEG AND COMPLAINS OF NAUSEA. PT HAD 1 EPISODE OF EMESIS, SALIVA-LIKE. GAVE ZOFRAN AND DILAUDID PER MD ORDER. MILY UP FULL DOSE, WASTED SOME TO GIVE A TOTAL OF 3MG (0.75ML). PT ON CONTACT PRECAUTION WITH SIGN POSTED OUTSIDE. LUNG SOUNDS CLEAR. WILL CONTINUE TO MONITOR.
--- NOTE | 2018-09-25 08:30 | NUR ---
WANTED TO DO SKIN CHECK ON PATIENT'S BACK SIDE. PT REFUSED AT THIS TIME.
--- NOTE | 2018-09-25 09:05 | NUR ---
[facility]ED [facility] SPOKE WITH PETE REGARDING THE REQUEST PER PETE THEY DON'T HAVE ISOLATION BED. CALLED [facility] SPOKE WITH FE THEY DON'T HAVE MALE PT BED AT THIS TIME.
--- NOTE | 2018-09-25 09:17 | NUR ---
CALLED [facility] SPOKE WITH ALEXIS NO BED AVAILABLE AT THIS TIME.
[2018-09-25 09:47] VITALS: BP 125/75
[2018-09-25 10:00] LABS: EOSINOPHILS # (AUTO) 0.3 K/uL (0-0.4); HEMOGLOBIN 7.7 g/dL (12.0-18.0); LYMPHOCYTES # (AUTO) 1.8 K/uL (2.0-11.5); MONOCYTES # (AUTO) 0.7 K/uL (0.8-1.0); NEUTROPHILS # (AUTO) 6.2 K/uL (1.8-7.7)
[2018-09-25 10:07] LABS: BASOPHILS # (AUTO) 0.1 K/uL (0.00-0.22); BASOPHILS % (AUTO) 0.6 % (0.0-2.0); EOSINOPHILS % (AUTO) 3.8 % (0.0-4.0); HEMATOCRIT 23.4 % (36-52); LYMPHOCYTES % (AUTO) 19.7 % (20.5-51.1); MEAN CORPUSCULAR HEMOGLOBIN 28 pg (27-31); MEAN CORPUSCULAR HGB CONC 33 g/dL (33-37); MEAN CORPUSCULAR VOLUME 86.7 fL (80-94); MONOCYTES % (AUTO) 7.5 % (1.7-9.3); NEUTROPHILS % (AUTO) 68.4 % (42.2-75.2); PLATELET COUNT (AUTO) 513 K/uL (140-450)
[2018-09-25 11:10] LABS: ALBUMIN 1.6 g/dL (3.4-5.0); ANION GAP 8.9 (8-16); CARBON DIOXIDE 30.3 mmol/L (21-32); CHOL/HDL RATIO 3.3 (1-4.5); CREATININE 2.4 mg/dL (0.7-1.3); MAGNESIUM 2.2 mg/dL (1.8-2.4); PHOSPHORUS 3.5 mg/dL (2.5-4.9); POTASSIUM 4.2 mmol/L (3.5-5.1); TOTAL BILIRUBIN 0.1 mg/dL (0.0-1.0)
--- NOTE | 2018-09-25 11:48 | NUR ---
SUGAR CURRENTLY 91. WANTED TO DO A SKIN ASSESSMENT. PT REFUSED.
--- NOTE | 2018-09-25 12:36 | NUR ---
GAVE DILAUDID FOR 10/10 BODY PAIN. PT STATED HE FEELS NAUSEOUS. WILL GIVE ZOFRAN.
[2018-09-25 17:18] VITALS: BP 132/73
--- NOTE | 2018-09-25 17:25 | NUR ---
PT REFUSES SPECIALTY COOK TO CHANGE LINEN OR TO REPOSITION. DRAINAGE NOTED ON BILAT POSTERIOR LEGS. PT APPEARS IN NO DISTRESS.
--- NOTE | 2018-09-25 19:28 | NUR ---
GAVE BEDSIDE REPORT TO DIRECTOR POWER RN. PT STABLE.
--- NOTE | 2018-09-25 19:30 | NUR ---
ASSUMED CARE OF PATIENT AT THIS TIME. RECEIVED REPORT FROM GÉNESIS ATWOOD AT THIS TIME. PATIENT IS AAOX4, ON ROOM AIR. PATIENT IS ABLE TO FOLLOW COMMANDS, AND ABLE TO MAKE NEEDS KNOWN. SEE SHIFT ASSESSMENT FOR FULL HEAD TO TOE ASSESSMENT OF PATIENT. VITAL SIGNS ARE STABLE. DENIES HAVING ANY PAIN AT THIS TIME. ORIENTED PT TO ROOM AND SAFETY. BED IN LOWEST POSITION, CALL LIGHT WITHIN REACH. WILL CONTINUE TO MONITOR.
[2018-09-25] MEDS: [UNRECOGNIZED DRUG - OTHER] IV SCH ×4 (20:38)
[2018-09-25] MEDS: NACL 0.9% 1,000 ML IV SCH (20:38)
[2018-09-25] MEDS: DEXTROSE IV SCH ×4 (20:38)
[2018-09-25] MEDS: AMINO ACIDS 8.5% IV SCH ×4 (20:38)
[2018-09-25] MEDS: MULTIVITAMIN IV SCH ×4 (20:38)
--- NOTE | 2018-09-25 20:40 | NUR ---
CALLED CONSTRUCTION MANAGEMENT INSTRUCTOR TO GET TPN TUBING. CONSTRUCTION MANAGEMENT INSTRUCTOR BROUGHT IT AND TPN WAS STARTED WITH NEW TUBING. DENIES HAVING ANY PAIN AT THIS TIME. BED IN LOWEST POSITION, CALL LIGHT WITHIN REACH. WILL CONTINUE TO MONITOR.
[2018-09-26] VITALS: BP 120/82
--- NOTE | 2018-09-26 | NUR ---
VITAL SIGNS ARE STABLE. DENIES HAVING ANY PAIN AT THIS TIME. BED IN LOWEST POSITION, CALL LIGHT WITHIN REACH. WILL CONTINUE TO MONITOR.
[2018-09-26] MEDS: HYDROmorphone PFS 4 MG/ML SYR IVP PRN ×10 (01:14→22:47)
--- NOTE | 2018-09-26 03:15 | NUR ---
ALL NEEDS MET AT THIS TIME. BED IS IN LOWEST POSITION, CALL LIGHT WITHIN REACH. WILL CONTINUE TO MONITOR.
[2018-09-26] MEDS: BLOOD GLUCOSE MONITORING 1 DEV DEV FS SCH ×4 (05:21→18:07)
--- NOTE | 2018-09-26 07:25 | NUR ---
RECEIVED BEDSIDE REPORT FROM FRUIT GROWER NURSE FOR CONTINUITY OF CARE. PATIENT AWAKE AND WATCHING TV AT THIS TIME. PATIENT IS AAOX4. RESPIRATION EVEN AND UNLABORED ON RA. 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 MID LINE DOUBLE LUMENS ON L ARM, INFUSING NS AT 22ML/HR AND TPN 100ML/HR PER MD ORDER. BURNED SKIN ON UPPER BODY NOTED, FORREST. BILATERAL LEGS WOUND NOTED, AND COVER WITH DRESSING, DRESSING CLEAN AND DRY. OSTOMY BAG IN PLACE, URANAL BY PATIENT'S SIDE. PATIENT IS BEDREST AND WOUND BED IS ON. DISCUSSED PLAN OF CARE WITH PATIENT AND PATIENT VERBALIZED UNDERSTANDING. SAFETY MEASURES IN PLACE. BED IN LOW POSITION AND CALL LIGHT WITHIN REACH. INSTRUCTED PATIENT TO USE THE CALL LIGHT FOR ANY ASSISTANCE AND PATIENT WAS AWARE.
[2018-09-26 08:00] VITALS: BP 126/76
--- NOTE | 2018-09-26 09:45 | NUR ---
PATIENT REFUSED TO BE TURN AND REPOSITION AND STATED " I WILL CHANGE MY DRESSING ON THURSDAY WITH DR CAICEDO." EDUCATION PROVIDED TO PATIENT ON REGARD OF PRESSURE ULCER AND SKIN BREAKDOWN, PATIENT VERBALIZED OK, BUT INSISTED OF NOT BEING REPOSITION. APPLIED BILATERAL HEEL PROTECTORS. EMPTIED OSTOMY BAG AND RECEIVED 15 ML. SAFETY MEASURES IN PLACE. BED IN LOW POSITION AND CALL LIGHT WITHIN REACH. WOUND BED ACTIVATED. INSTRUCTED PATIENT TO USE THE CALL LIGHT FOR ANY ASSISTANCE AND PATIENT WAS AWARE.
--- NOTE | 2018-09-26 11:18 | NUR ---
PATIENT COMPLAINED 9/10 PAIN AROUND HIS R BKA AND BACK. ADMINISTERED PRN PAIN MED, MED EDUCATION PROVIDED TO PATIENT ANT PATIENT VERBALIZED UNDERSTANDING. PATIENT AWAKE AND RESTING ON BED. SAFETY MEASURES IN PLACE. BED IN LOW POSITION AND CALL LIGHT WITHIN REACH. WOUND BED ACTIVATED. INSTRUCTED PATIENT TO USE THE CALL LIGHT FOR ANY ASSISTANCE AND PATIENT AWARE.
--- NOTE | 2018-09-26 11:50 | NUR ---
PATIENT REFUSED LINEN CHANGE AND REPOSITION. PATIENT STATED, " IT'S OK, NO NEED TO CHANGE. I WILL HAVE WOUND DRESSING CHANGE WITH DR CAICEDO TOMORROW." EDUCATION PROVIDED TO PATIENT ON REGARDS OF PRESSURES ULCER AND PERSONAL HYGIENE AND PATIENT VERBALIZED OK. SAFETY MEASURES IN PLACE. BED IN LOW POSITION AND CALL LIGHT WITHIN REACH. WOUND BE ACTIVATED. INSTRUCTED PATIENT TO USE THE CALL LIGHT FOR ANY ASSISTANCE AND PATIENT WAS AWARE
--- NOTE | 2018-09-26 12:11 | NUR ---
CHECKED BLOOD GLUCOSE AND RECEIVED 101, NO COVER NEEDED. PATIENT AWAKE AND WATCHING TV ON BED. NO SIGNS OF DISTRESS NOTED. SAFETY MEASURES IN PLACE. BED IN LOW POSITION AND CALL LIGHT WITHIN REACH. INSTRUCTED PATIENT TO USE THE CALL LIGHT FOR ANY ASSISTANCE AND PATIENT WAS AWARE. WOUND BED ACTIVATED.
[2018-09-26 12:29] LABS: BASOPHILS # (AUTO) 0.1 K/uL (0.00-0.22); BASOPHILS % (AUTO) 0.7 % (0.0-2.0); EOSINOPHILS # (AUTO) 0.4 K/uL (0-0.4); EOSINOPHILS % (AUTO) 5.3 % (0.0-4.0); HEMATOCRIT 24.1 % (36-52); LYMPHOCYTES # (AUTO) 1.9 K/uL (2.0-11.5); LYMPHOCYTES % (AUTO) 23.2 % (20.5-51.1); MEAN CORPUSCULAR HEMOGLOBIN 29 pg (27-31); MEAN CORPUSCULAR HGB CONC 33 g/dL (33-37); MONOCYTES # (AUTO) 0.7 K/uL (0.8-1.0); NEUTROPHILS % (AUTO) 61.8 % (42.2-75.2); PLATELET COUNT (AUTO) 513 K/uL (140-450); RED BLOOD CELL COUNT(AUTO) 2.77 MIL/uL (4.20-6.10); RED CELL DISTRIBUTION WIDTH 16.3 % (11.6-13.7)
[2018-09-26 13:07] LABS: ANION GAP 8.4 (8-16); CARBON DIOXIDE 29.7 mmol/L (21-32); CREATININE 2.3 mg/dL (0.7-1.3); POTASSIUM 4.1 mmol/L (3.5-5.1)
--- NOTE | 2018-09-26 13:40 | NUR ---
UNABLE TO PERFORM WOUND ASSESSMENT, PATIENT REFUSED AND STATED THAT "I ONLY WANT DR CAICEDO TO DO THE WOUND CHANGE, AND HE DOES IT EVERY THURSDAY." EDUCATION PROVIDED TO PATIENT AND PATIENT VERBALIZED UNDERSTANDING. NO SIGNS OF DISTRESS NOTED. SAFETY MEASURES IN PLACE. BED IN LOW POSITION AND CALL LIGHT WITHIN REACH. WOUND BED ACTIVATED. INSTRUCTED PATIENT TO USE THE CALL LIGHT FOR ANY ASSISTANCE AND PATIENT WAS AWARE.
--- NOTE | 2018-09-26 13:57 | NUR ---
PATIENT COMPLAINED 8/10 PAIN AROUND HIS R BKA AND BACK. ADMINISTERED PRN PAIN MED, MED EDUCATION PROVIDED TO PATIENT ANT PATIENT VERBALIZED UNDERSTANDING. PATIENT AWAKE AND WATCHING TV ON BED AT THIS TIME. SAFETY MEASURES IN PLACE. BED IN LOW POSITION AND CALL LIGHT WITHIN REACH. WOUND BED ACTIVATED. INSTRUCTED PATIENT TO USE THE CALL LIGHT FOR ANY ASSISTANCE AND PATIENT AWARE
[2018-09-26] MEDS: ONDANSETRON 4 MG/2 ML VIAL IVP PRN (14:14)
--- NOTE | 2018-09-26 14:14 | NUR ---
PATIENT COMPLAINED OF FEELING NAUSEA, ADMINISTERED PRN ZOFRAN PER MD ORDER, PATIENT TOLERATED WELL. PATIENT IS AWAKE AND RESTING ON BED AT THIS TIME. NO SIGNS OF DISTRESS NOTED. SAFETY MEASURES IN PLACE. BED IN LOW POSITION AND CALL LIGHT WITHIN REACH. WOUND BED ACTIVATED. INSTRUCTED PATIENT TO USE THE CALL LIGHT FOR ANY ASSISTANCE AND PATIENT WAS AWARE.
--- NOTE | 2018-09-26 15:23 | NUR ---
PATIENT AWAKE AND WATCHING TV ON BED AT THIS TIME. EMPTIED URANAL 900 ML. NO SIGNS OF DISTRESS NOTED. SAFETY MEASURES IN PLACE. BED IN LOW POSITION AND CALL LIGHT WITHIN REACH. INSTRUCTED PATIENT TO USE THE CALL LIGHT FOR ANY ASSISTANCE AND PATIENT WAS AWARE.
[2018-09-26 16:00] VITALS: BP 148/81
--- NOTE | 2018-09-26 17:27 | NUR ---
PATIENT AWAKE AND WATCHING TV ON BED. STATED THAT HIS PAIN IS BUILDING UP SLOWLY, INFORMED PATIENT THAT HIS LAST PAIN MED GIVEN AT 1611 AND IT SCHEDULES 2H PRN. PATIENT VERBALIZED UNDERSTANDING AND STATED THE PAIN IS TOLERABLE AT THIS TIME. RESPIRATION EVEN AND UNLABORED ON RA. NO SIGNS OF DISTRESS NOTED. SAFETY MEASURES IN PLACE. BED IN LOW POSITION AND CALL LIGHT WITHIN REACH. WOUND BED ACTIVATED. INSTRUCTED PATIENT TO USE THE CALL LIGHT FOR ANY ASSISTANCE AND PATIENT WAS AWARE.
--- NOTE | 2018-09-26 18:10 | NUR ---
INFORMED PATIENT THAT HE WILL BE NPO AFTER MIDNIGHT AND PATIENT WAS AWARE. SIGN POSTED BY THE DOOR.
--- NOTE | 2018-09-26 18:21 | NUR ---
PATIENT COMPLAINED 8/10 PAIN AROUND HIS R BKA AND BACK. ADMINISTERED PRN PAIN MED, MED EDUCATION PROVIDED TO PATIENT ANT PATIENT VERBALIZED UNDERSTANDING. PATIENT AWAKE AND TALKING ON HIS PHONE AT THIS TIME. SAFETY MEASURES IN PLACE. BED IN LOW POSITION AND CALL LIGHT WITHIN REACH. WOUND BED ACTIVATED. INSTRUCTED PATIENT TO USE THE CALL LIGHT FOR ANY ASSISTANCE AND PATIENT AWARE
--- NOTE | 2018-09-26 19:21 | NUR ---
ENDORSED PATIENT AT BEDSIDE TO RED CROSS WORKER NURSE FOR CONTINUITY OF CARE. PATIENT AWAKE AND TALKING TO MOTHER MELITA AT BEDSIDE. NO SIGNS OF DISTRESS NOTED. PATIENT IS IN STABLE CONDITION. SAFETY MEASURES IN PLACE.
--- NOTE | 2018-09-26 19:25 | NUR ---
RECEIVED PT FROM ROSALIE RN PT IS AAOX4 BEDBOUN, WITHMULTIPLES CHRONIC WOUNDS MID LINE ON LEFT UA ON TPN NOT DISTRESS NOTED AT THIS TIME, RELATIVES AT BED SIDE INITIAL ASSESSMENT DONE
[2018-09-26] MEDS: NACL 0.9% 1,000 ML IV SCH (20:00)
[2018-09-26] MEDS: DEXTROSE IV SCH ×4 (20:45)
[2018-09-26] MEDS: AMINO ACIDS 8.5% IV SCH ×4 (20:45)
[2018-09-26] MEDS: MULTIVITAMIN IV SCH ×4 (20:45)
[2018-09-26] MEDS: [UNRECOGNIZED DRUG - OTHER] IV SCH ×4 (20:45)
--- NOTE | 2018-09-26 21:20 | NUR ---
AFTER PAIN MEDIC GIVEN PT SEEM RELAX TALKING WITH HIS FAMILY AND WATCHING TV
--- NOTE | 2018-09-26 23:17 | NUR ---
PT GETTING SLEEP AFTE PAIN MEDIC GIVEN RELATIVES AT BED SIDE
[2018-09-27] VITALS: BP 112/62
--- NOTE | 2018-09-27 | NUR ---
BLOOD SUGAR TEST 89
[2018-09-27] MEDS: HYDROmorphone PFS 4 MG/ML SYR IVP PRN ×9 (02:32→21:33)
--- NOTE | 2018-09-27 03:36 | NUR ---
AFTER PAIN MEDIC GIVEN PT IS SLEEPING WELL AND PT IS NPO POST MN, ON TPN ON LEFT UA INFUSING WELL AND WELL TOLERATED
[2018-09-27] MEDS: BLOOD GLUCOSE MONITORING 1 DEV DEV FS SCH ×4 (05:33→18:19)
--- NOTE | 2018-09-27 05:47 | NUR ---
PT NPO FOR DRESSING CHANGED , AND KPOSS DEBRIDEMENT OF WOUNDS,COLOSTOMY BAG EMPTY OF GASSES,, AFTER PAIN MEDIC GIVEN PT SLEEPING
--- NOTE | 2018-09-27 06:50 | NUR ---
TICKET TO RIDE AND SURGICAL CHECK LIST READY PT NPO BLOOD SUGAR TEST 89 AND PT ON TPN ON LEFT MIDLINE ON LEFT UA INFUSING WELL PT WILL BE ENDORSED TO DAYSHIFT NURSE FOR CONTINUE OF CARE
[2018-09-27 07:08] LABS: ANION GAP 8.2 (8-16); CARBON DIOXIDE 31.2 mmol/L (21-32); CREATININE 2.3 mg/dL (0.7-1.3); POTASSIUM 4.4 mmol/L (3.5-5.1)
[2018-09-27 07:11] LABS: MAGNESIUM 2.2 mg/dL (1.8-2.4); PHOSPHORUS 3.5 mg/dL (2.5-4.9)
[2018-09-27 07:20] LABS: BASOPHILS # (AUTO) 0.1 K/uL (0.00-0.22); EOSINOPHILS # (AUTO) 0.5 K/uL (0-0.4); EOSINOPHILS % (AUTO) 5.1 % (0.0-4.0); HEMATOCRIT 24.4 % (36-52); HEMOGLOBIN 8.3 g/dL (12.0-18.0); LYMPHOCYTES # (AUTO) 1.9 K/uL (2.0-11.5); MEAN CORPUSCULAR HEMOGLOBIN 30 pg (27-31); MEAN CORPUSCULAR HGB CONC 34 g/dL (33-37); MEAN CORPUSCULAR VOLUME 86.5 fL (80-94); MONOCYTES # (AUTO) 0.7 K/uL (0.8-1.0); MONOCYTES % (AUTO) 7.8 % (1.7-9.3); NEUTROPHILS # (AUTO) 5.9 K/uL (1.8-7.7); NEUTROPHILS % (AUTO) 65.1 % (42.2-75.2); PLATELET COUNT (AUTO) 539 K/uL (140-450); RED BLOOD CELL COUNT(AUTO) 2.82 MIL/uL (4.20-6.10); RED CELL DISTRIBUTION WIDTH 16.3 % (11.6-13.7)
--- NOTE | 2018-09-27 07:20 | NUR ---
RECEIVED BEDSIDE REPORT FROM PRESS TENDER SMOKE SIGNAL NURSE FOR CONTINUITY OF CARE. PATIENT AWAKE AND RESTING ON BED AT THIS TIME. PATIENT IS AAOX4. RESPIRATION EVEN AND UNLABORED ON RA. 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 MID LINE DOUBLE LUMENS ON L ARM, INFUSING NS AT 22ML/HR AND TPN 100ML/HR PER MD ORDER. BURNED SKIN ON UPPER BODY NOTED, SILVERSMITH APPRENTICE. BILATERAL LEGS WOUND NOTED, AND COVER WITH DRESSING, DRESSING CLEAN AND DRY. OSTOMY BAG IN PLACE, URANAL BY PATIENT'S SIDE. PATIENT IS BEDREST AND WOUND BED IS ON. PATIENT IS NPO AND PATIENT WAS AWARE AND ACKNOWLEDGED. NPO SIGN POSTED ON DOOR. DISCUSSED PLAN OF CARE WITH PATIENT AND PATIENT VERBALIZED UNDERSTANDING. SAFETY MEASURES IN PLACE. BED IN LOW POSITION AND CALL LIGHT WITHIN REACH. WOUND BED ACTIVATED. INSTRUCTED PATIENT TO USE THE CALL LIGHT FOR ANY ASSISTANCE AND PATIENT WAS AWARE.
[2018-09-27 08:00] VITALS: BP 124/76
--- NOTE | 2018-09-27 08:00 | NUR ---
PATIENT COMPLAINED 9/10 PAIN AROUND HIS R BKA AND BACK. ADMINISTERED PRN PAIN MED, MED EDUCATION PROVIDED TO PATIENT ANT PATIENT VERBALIZED UNDERSTANDING. PATIENT AWAKE AND PLAYING HIS IPAD AT THIS TIME. SAFETY MEASURES IN PLACE. BED IN LOW POSITION AND CALL LIGHT WITHIN REACH. WOUND BED ACTIVATED. INSTRUCTED PATIENT TO USE THE CALL LIGHT FOR ANY ASSISTANCE AND PATIENT AWARE.
--- NOTE | 2018-09-27 08:04 | NUR ---
DR GAO WAS ASSESSING AND TALKING TO PATIENT AT BEDSIDE. NO SIGNS OF DISTRESS NOTED. SAFETY MEASURES IN PLACE.
--- NOTE | 2018-09-27 09:08 | NUR ---
DISCHARGE PLANNING Followed up of SNF referrals faxed on Thursday to SNFs. Pt was not accepted at any of the SNFs due to having no bed available and/or not able to handle the patient's complex care. Sw called [facility] showcase maker to follow-up. commercial lending relationship manager stated the patient needs to be stabilized prior to discharge and MD should help with transitioning the patient to a LTAC care which means stop doing wound care in the OR and under anesthesia. commercial lending relationship manager stated no LTAC will be able to do this and also to consider a pain management consult and/or pain pump. Dasia Pederson, ACSW Ext [phone]
--- NOTE | 2018-09-27 09:20 | NUR ---
BASE REMOVER ATTEMPTED TO CHANGE LINEN AND REPOSITION PATIENT, PATIENT REFUSED TO BE TURN AND REPOSITION. SPOKE WITH PATIENT AND PATIENT STATED " I DON'T WANT TO BE TURN. IT WILL HURT ME, I WILL HAVE WOUND CHANGE WITH OH THIS AFTERNOON ANYWAY." EDUCATION PROVIDED TO PATIENT ON REGARD OF PRESSURE ULCER AND SKIN BREAKDOWN, PATIENT VERBALIZED UNDERSTANDING, BUT INSISTED OF NOT BEING REPOSITION. RESPECTED PATIENT'S CHOICE. NO SIGNS OF DISTRESS NOTED. SAFETY MEASURES IN PLACE. BED IN LOW POSITION AND CALL LIGHT WITHIN REACH. WOUND BED ACTIVATED. INSTRUCTED PATIENT TO USE THE CALL LIGHT FOR ANY ASSISTANCE AND PATIENT WAS AWARE.
--- NOTE | 2018-09-27 10:24 | NUR ---
PATIENT COMPLAINED 9/10 PAIN AROUND HIS R BKA AND BACK. ADMINISTERED PRN PAIN MED, MED EDUCATION PROVIDED TO PATIENT ANT PATIENT VERBALIZED UNDERSTANDING. PATIENT AWAKE AND PLAYING HIS I-PAD AT THIS TIME. NO SIGNS OF DISTRESS NOTED. SAFETY MEASURES IN PLACE. BED IN LOW POSITION AND CALL LIGHT WITHIN REACH. WOUND BED ACTIVATED. INSTRUCTED PATIENT TO USE THE CALL LIGHT FOR ANY ASSISTANCE AND PATIENT AWARE.
--- NOTE | 2018-09-27 11:23 | NUR ---
PATIENT AWAKE AND WATCHING TV AT THIS TIME. RESPIRATION EVEN AND UNLABORED ON RA. STATED THAT HIS PAIN IS TOLERABLE AT THIS TIME. NO SIGNS OF DISTRESS NOTED. IVF AND TPN ARE INFUSING PER MD ORDER. SAFETY MEASURES IN PLACE. BED IN LOW POSITION AND CALL LIGHT WITHIN REACH. INSTRUCTED PATIENT TO USE THE CALL LIGHT FOR ANY ASSISTANCE AND PATIENT WAS AWARE.
--- NOTE | 2018-09-27 12:23 | NUR ---
DC PLANNING Received call this am from Nikolai @ [facility], ph [phone], that has an accepting MD @ [facility], Dr Warner. States to call & fax order to [facility] & if accepted he will give auth for transfer. Paged Dr Qureshi & received call back, already aware Dr Warner accepting gave ph order for transfer. Called & spoke w Vicky in Admissions @ [facility], ph [phone] ext [phone] fax [phone], & informed, faxed pt info requested. Spoke w pt @ bedside, states agreeable if mom agreeable to call his mom to discuss dc planning. Called & spoke w mother Karla Perez, cell [phone], is agreeable w transfer to [facility]. Addendum: 09/27/18 at 1455 by Kathryn Ying CM Received call from Susan @ [facility], states reviewed w Delivery Room Clerk Dr Randhawa & cannot accept pt. States it is a lateral transfer & there is nothing different that they would do there that we are already doing here. Updated Nikolai @ [facility], states he is going to review michael [place], another CM to try & figure out another option. Paged Dr Wilson & received call back. Asked if could taper down on doing wound care in OR under anesthesia. States that he is in agreement but that pt/mother will not allow anyone to do his wound care unless under anesthesia. States this is not new that he has been doing his wound care in OR @ [facility]. That has already discussed w pt/mother several times in past, & will not allow wound care unless under anesthesia. If pt/mother allow then could be done by wound care nurse @ bedside w IV pain meds. Updated KATHRYN Forman Pattern Perforating Machine Operator. Called mother to discuss, no answer left msg to return my call, left my direct CM ph#.
--- NOTE | 2018-09-27 12:36 | NUR ---
PATIENT COMPLAINED 8/10 PAIN AROUND HIS R BKA AND BACK. ADMINISTERED PRN PAIN MED, MED EDUCATION PROVIDED TO PATIENT ANT PATIENT VERBALIZED UNDERSTANDING. PATIENT AWAKE AND WATCHING AT THIS TIME. NO SIGNS OF DISTRESS NOTED. SAFETY MEASURES IN PLACE. BED IN LOW POSITION AND CALL LIGHT WITHIN REACH. WOUND BED ACTIVATED. INSTRUCTED PATIENT TO USE THE CALL LIGHT FOR ANY ASSISTANCE AND PATIENT AWARE.
--- NOTE | 2018-09-27 13:27 | NUR ---
PATIENT AWAKE AND WATCHING TV ON BED AT THIS TIME. EVEN AND UNLABORED CHEST RISES NOTED. PATIENT STATED HIS PAIN IS TOLERABLE. NO SIGNS OF DISTRESS NOTED. SAFETY MEASURES IN PLACE. BED IN LOW POSITION AND CALL LIGHT WITHIN REACH. INSTRUCTED PATIENT TO USE THE CALL LIGHT FOR ANY ASSISTANCE AND PATIENT WAS AWARE.
--- NOTE | 2018-09-27 13:52 | NUR ---
09/27/18 RD FOLLOW UP COMPLETED PLEASE REFER TO NUTRITION ASSESSMENT UNDER CARE ACTIVITY FOR ESTIMATED NUTRITIONAL NEEDS. 1. CONTINUE TPN: D10%, AA 3.25% AT 80 ML/HR AND LIPIDS 10% (200 ML). -THIS WILL PROVIDE PATIENT WITH 1102 KCAL, 62GM OF PROTEIN 2. CONTINUE BLAND/SOFT DIET -PROVIDES APPROXIMATELY 2000 KCAL AND 100 GM OF PROTEIN 3. CONTINUE RODRIGUEZ BID 4. RECOMMENDED TO PATIENT TO EAT 925 CALORIES AND 25 GM OF PROTEIN FROM HIS DIET TO MEET 75% OR GREATER OF ESTIMATED NEEDS RD WILL FOLLOW UP 2-3 DAYS, HIGH RISK ALEXEI JOHNSTON RD
[2018-09-27 16:00] VITALS: BP 128/73
--- NOTE | 2018-09-27 16:59 | NUR ---
PATIENT COMPLAINED 8/10 PAIN AROUND HIS R BKA AND BACK. ADMINISTERED PRN PAIN MED, MED EDUCATION PROVIDED TO PATIENT ANT PATIENT VERBALIZED UNDERSTANDING. PATIENT AWAKE AND TALKING TO MOTHER MELITA AT BEDSIDE. NO SIGNS OF DISTRESS NOTED. SAFETY MEASURES IN PLACE. BED IN LOW POSITION AND CALL LIGHT WITHIN REACH. WOUND BED ACTIVATED. INSTRUCTED PATIENT TO USE THE CALL LIGHT FOR ANY ASSISTANCE AND PATIENT AWARE.
[2018-09-27] MEDS: ONDANSETRON 4 MG/2 ML VIAL IVP PRN (18:59)
--- NOTE | 2018-09-27 19:01 | NUR ---
PATIENT COMPLAINED 8/10 PAIN AROUND HIS R BKA AND BACK. AND PATIENT IS FEELING NAUSEA. ADMINISTERED PRN PAIN MED AND ZOFRAN, MED EDUCATION PROVIDED TO PATIENT ANT PATIENT VERBALIZED UNDERSTANDING. PATIENT AWAKE AND TALKING TO MOTHER MELITA AT BEDSIDE. NO SIGNS OF DISTRESS NOTED. SAFETY MEASURES IN PLACE. BED IN LOW POSITION AND CALL LIGHT WITHIN REACH. WOUND BED ACTIVATED. INSTRUCTED PATIENT TO USE THE CALL LIGHT FOR ANY ASSISTANCE AND PATIENT AWARE.
--- NOTE | 2018-09-27 19:25 | NUR ---
ENDORSED PATIENT AT BEDSIDE TO TENNIS PLAYER NURSE FOR CONTINUITY OF CARE. PATIENT IS RESTING ON BED AT THIS TIME. NO SIGNS OF DISTRESS NOTED. PATIENT IS IN STABLE CONDITION. SAFETY MEASURES IN PLACE. BED IN LOW POSITION AND CALL LIGHT WITHIN REACH.
--- NOTE | 2018-09-27 19:26 | NUR ---
ENDORSED PATIENT AT BEDSIDE TO AM SHIFT NURSE FOR CONTINUITY OF CARE. PATIENT IS RESTING ON BED AT THIS TIME. NO SIGNS OF DISTRESS NOTED. PATIENT IS IN STABLE CONDITION. W/ BURN WOUNDS. STILL FOR DRESSING OMI AT THE OR. SAFETY MEASURES IN PLACE. BED IN LOW POSITION AND CALL LIGHT WITHIN REACH.
[2018-09-27] MEDS: NACL 0.9% 1,000 ML IV SCH (20:00)
[2018-09-27] MEDS: MULTIVITAMIN IV SCH ×4 (20:30)
[2018-09-27] MEDS: DEXTROSE IV SCH ×4 (20:30)
[2018-09-27] MEDS: AMINO ACIDS 8.5% IV SCH ×4 (20:30)
[2018-09-27] MEDS: [UNRECOGNIZED DRUG - OTHER] IV SCH ×4 (20:30)
--- NOTE | 2018-09-27 21:33 | NUR ---
PATIENT COMPLAINED 10/19 PAIN AROUND HIS R BKA AND BACK.ADMINISTERED DILAUDID PEDRO LUIS Addendum: 09/28/18 at 0203 by Hermelinda Townsend RN AMEND TO 09/18 PAIN
[2018-09-28] MEDS: BLOOD GLUCOSE MONITORING 1 DEV DEV FS SCH ×4 (00:09→18:24)
[2018-09-28] MEDS: HYDROmorphone PFS 4 MG/ML SYR IVP PRN ×6 (00:10→10:49)
--- NOTE | 2018-09-28 00:36 | NUR ---
PT ENDORSED TO ANOTHER SHIFT NURSE ,PT C/O OF 8 PAIN ON TH E R BKA AND BACK, WILL GIVE THE PAIN MEDS AND DO THE REASSESSMENT.
--- NOTE | 2018-09-28 00:37 | NUR ---
RECEIVED BEDSIDE REPORT FROM MIKE CAPPS.
[2018-09-28 00:41] VITALS: BP 140/80
--- NOTE | 2018-09-28 02:50 | NUR ---
ASDMINISTERED PRN PAIN MED REQUESTED. TOLERATED WELL. WILL CONTINUE TO MONITOR.
--- NOTE | 2018-09-28 03:42 | NUR ---
PT SLEEPING IN BED. EASILY AROUSABLE. EVEN UNLABORED CHEST RISE. NO SIGNS OF DISTRESS. CALL LIGHT WITHIN REACH. WILL CONTINUE TO MONITOR.
--- NOTE | 2018-09-28 05:02 | NUR ---
PT REQUESTED PAIN MEDS. WILL ADMINISTER PRN PAIN MEDS.
--- NOTE | 2018-09-28 06:09 | NUR ---
WILL ENDORSE PT TO DAYSHIFT RN. PT IN STABLE CONDITION. NO SIGNS OF DISTRESS. WILL CONTINUE TO MONITOR.
--- NOTE | 2018-09-28 07:28 | NUR ---
RECEIVED REPORT FROM CARPENTRY FOREMAN RN FOR CONTINUITY OF CARE. PT IS AAOX4, ABLE TO MAKE NEEDS KNOWN. PT SKIN IS NON INTACT. OPEN WOUNDS TO THE LOWER EXTREMITIES. DRESSING CHANGE BEING DONE TODAY BY DR. CAICEDO. PT ASKING FOR PAIN MEDS. WILL MEDICATE PT. EXPLAINED POC TO PT. PT VERBALIZED UNDERSTANDING. WILL ROUND FREQUENTLY ON PT.
[2018-09-28 07:39] LABS: MAGNESIUM 2.2 mg/dL (1.8-2.4)
[2018-09-28 07:42] LABS: ANION GAP 11.3 (8-16); CARBON DIOXIDE 27.9 mmol/L (21-32); POTASSIUM 4.2 mmol/L (3.5-5.1)
[2018-09-28 07:43] LABS: CREATININE 2.1 mg/dL (0.7-1.3)
[2018-09-28 08:00] VITALS: BP 127/77
--- NOTE | 2018-09-28 08:15 | NUR ---
PT GIVEN DILAUDID FOR PAIN RELIEF OF EXTREME PAIN OF 10/10. WILL CONTINUE TO ASSESS PT FOR MED EFFECTIVENESS. ALL OTHER NEEDS CURRENTLY MET. WILL CONTINUE TO ROUND FREQUENTLY ON PT.
--- NOTE | 2018-09-28 11:23 | NUR ---
PT RESTING IN BED. DILAUDID GIVEN FOR EXTREME PAIN. AWAITING OR TO TAKE PT FOR DRESSING CHANGE. ALL OTHER NEEDS CURRENTLY MET.
--- NOTE | 2018-09-28 11:37 | NUR ---
CONTACTED DI AND KISHORE FROM [facility] , STATED THEY DISCUSSED THE CASE WITH DR GAO THE PLAN IS DR GAO ,DR CHUNG WILL DISCUSSED WITH DR CLARK THE SURGEON (MERRY GO ROUND OPERATOR) AT [facility] TO ACCEPT THE PATIENT. KISHORE [facility] WILL CALL BACK WITH THE DECISION. PLAN B SPOKE WITH ELADIA FROM [facility] DISCUSSED THE CASE AND IF [facility] DOESN'T TAKE PATIENT [facility] MIGHT TAKE HIM.
[2018-09-28] MEDS ORDERED: PROPOFOL 200 MG/20 ML VIAL IV ONE (11:38)
[2018-09-28] MEDS ORDERED: SEVOFLURANE 250 ML BTL INH ONE (11:38)
--- NOTE | 2018-09-28 11:48 | NUR ---
PT TAKEN TO OR FOR DRESSING CHANGE. PT LEFT IN STABLE CONDITION.
[2018-09-28] MEDS ORDERED: fentaNYL 0.05 MG/ML VIAL ONE ×2 (11:53→12:19)
[2018-09-28] MEDS: HYDROmorphone 1 MG/ML AMP IVP PRN ×4 (12:25→12:55)
[2018-09-28] MEDS ORDERED: HYDROmorphone PFS 2 MG/ML SYR ONE (12:35)
--- NOTE | 2018-09-28 12:43 | NUR ---
PT RETURNED FROM OR. ALL NEEDS CURRENTLY MET. PT AWARE THAT NEXT PAIN MED IS DUE AT OR AFTER 1345. CALL LIGHT WITHIN REACH, BED IN LOW POSITION. Addendum: 09/28/18 at 1412 by Andra Gasca RN NEXT PAIN MED NOT DUE UNTIL 1435.
--- NOTE | 2018-09-28 14:10 | NUR ---
PT RESTING IN BED. NO SIGNS OF DISTRESS. PT AWARE THAT NEXT PAIN MED CAN NOT BE GIVEN UNTIL AFTER 1435. PT VERBALIZED UNDERSTANDING.
--- NOTE | 2018-09-28 14:35 | NUR ---
PT ARM WHERE PICC LINE IS LOCATED IS SWOLLEN AND LEAKING. NOTIFIED. WILL PLACE NEW PICC.
[2018-09-28 16:00] VITALS: BP 140/84
--- NOTE | 2018-09-28 16:38 | NUR ---
PT RESTING IN BED. WILL GIVE PAIN MEDS FOR SEVERE PAIN. ALL OTHER NEEDS MET. PT TOLERATING TPN WELL THROUGH NEW PICC LINE. WILL REMOVE OLD PICC AND SEND TIP TO LAB FOR CULTURE.
[2018-09-28] MEDS: HYDROmorphone PFS 2 MG/ML SYR IVP PRN ×3 (16:40→21:58)
--- NOTE | 2018-09-28 18:32 | NUR ---
PT RESTING IN BED. ALL NEEDS CURRENTLY MET. WILL CONTINUE TO ROUND FREQUENTLY ON PT.
--- NOTE | 2018-09-28 19:30 | NUR ---
ENDORSED PT TO STATE ASSESSED PROPERTIES DIRECTOR FOR CONTINUITY OF CARE. PT IN STABLE CONDITION AT THIS TIME.
--- NOTE | 2018-09-28 19:31 | NUR ---
RECEIVED BEDSIDE REPORT FROM AARON ROBERTSON. PT A/O X4. PERSON PLACE TIME AND EVENT. HUNGARIAN SPEAKING. DISCUSSED PLAN OF CARE. VERBALIZED UNDERSTANDING. ABLE TO MAKE NEEDS KNOWN. NO SIGNS OF DISTRESS. ROOM AIR. SKIN NON INTACT. PICC IN R UA. DOUBLE LUMEN. INFUSING NS @42. INFUSING TPN @100. BOTH PATENT AND INTACT. URINAL AT BEDSIDE. COLOSTOMY BAG. CLEAN DRY AND INTACT. BED BOUND. UNABLE TO AMBULATE. FALL PREC IN PLACE. CONTACT PREC. BED IN LOWEST POSITION. CALL LIGHT WITHIN REACH. WILL CONTINUE TO MONITOR. MOTHER AT BEDSIDE.
--- NOTE | 2018-09-28 19:51 | NUR ---
REMOVED 2MG ACCIDENTLY INSTEAD OF 3MG. RETURNED THE 2MG. WITNESSED BY MAY. AND REMOVED THE 3MG AND ADMINISTERED 3MG PT REQUESTED FOR PAIN 10/10 LEVEL. EDUCATED ON SIDE EFFECTS AND VERBALIZED UNDERSTANDING. TOLERATED WELL. WILL REASSESS IN 1 HR. WILL CONTINUE TO MONITOR.
[2018-09-28] MEDS: AMINO ACIDS 8.5% IV SCH ×4 (19:58)
[2018-09-28] MEDS: [UNRECOGNIZED DRUG - OTHER] IV SCH ×4 (19:58)
[2018-09-28] MEDS: DEXTROSE IV SCH ×4 (19:58)
[2018-09-28] MEDS: MULTIVITAMIN IV SCH ×4 (19:58)
[2018-09-28] MEDS: NACL 0.9% 1,000 ML IV SCH (20:00)
--- NOTE | 2018-09-28 22:57 | NUR ---
REASSESSED PAIN. PT STATES 5/10. NO SIGNS OF DISTRESS. WILL WANT PRN MEDS WHEN AVAILABLE IN [facility]
--- NOTE | 2018-09-28 23:05 | NUR ---
WENT TO LAB TO RE-LABEL CULTURE COLLECTION THAT WAS SENT INTO LAB DURING DAYSHIFT BY GÉNESIS ROBERTSON. WRONG LABEL- PICC LINE TIP. NEW LABEL- MIDLINE TIP OF MOLINA.
[2018-09-29] VITALS: BP 128/69
[2018-09-29] MEDS: HYDROmorphone PFS 2 MG/ML SYR IVP PRN ×9 (00:03→21:52)
--- NOTE | 2018-09-29 00:13 | NUR ---
BLOOD SUGAR 98. NO COVERAGE NEEDED. VITALS WNL. TOLERATED WELL. WILL CONTINUE TO MONITOR.
[2018-09-29] MEDS: BLOOD GLUCOSE MONITORING 1 DEV DEV FS SCH ×4 (00:14→18:19)
--- NOTE | 2018-09-29 01:33 | NUR ---
PT IS WATCHING TV IN BED. EASILY AROUSABLE. ABLE TO MAKE NEEDS KNOWN. BED IN LOWEST POSITION. CALL LIGHT WITHIN REACH. NO COMPLAINTS AT THIS TIME. WILL CONTINUE TO MONITOR.
--- NOTE | 2018-09-29 02:55 | NUR ---
PT RESTING WATCHING TV. NO SIGNS OF DISTRESS. NO PAIN REPORTED. EVEN UNLABORED BREATHS. WILL CONTINUE TO MONITOR.
[2018-09-29] MEDS: NACL 0.9% 1,000 ML IV SCH (03:57)
--- NOTE | 2018-09-29 04:59 | NUR ---
PT SLEEPING. NO SIGNS OF RESP DISTRESS. NO PAIN NOTED. ABLE TO MAKE NEEDS KNOWN. BED IN LOWEST POSITION. CALL LIGHT WITHIN REACH. WILL CONTINUE TO MONITOR.
--- NOTE | 2018-09-29 06:15 | NUR ---
WILL ENDORSE PT TO DAYSHIFT RN. PT IN STABLE CONDITION. NO SIGNS OF DISTRESS. ABLE TO MAKE NEEDS KNOWN. BED IN LOWEST POSITION. CALL LIGHT WITHIN REACH.
--- NOTE | 2018-09-29 07:19 | NUR ---
RECEIVED REPORT FROM AUTOMATIC LATHE SETTER RN FOR CONTINUITY OF CARE. PT IN STABLE CONDITION BUT REQUESTING PAIN MEDICATION. ROOM ENVIRONMENT CHECK DONE. DISCUSSED POC WITH PT, PT VERBALIZED UNDERSTANDING. WILL MONITOR PT CLOSELY. BED IN LOW POSITION, CALL LIGHT WITHIN REACH.
--- NOTE | 2018-09-29 08:01 | NUR ---
PT REFUSING TO HAVE LINENS CHANGED. ALSO REFUSING TO BE TURNED/REPOSITIONED. WILL TRY AGAIN LATER.
[2018-09-29 08:05] VITALS: BP 124/76
[2018-09-29 08:16] LABS: BASOPHILS # (AUTO) 0.1 K/uL (0.00-0.22); BASOPHILS % (AUTO) 0.7 % (0.0-2.0); EOSINOPHILS # (AUTO) 0.3 K/uL (0-0.4); EOSINOPHILS % (AUTO) 3.1 % (0.0-4.0); HEMATOCRIT 25.4 % (36-52); HEMOGLOBIN 8.3 g/dL (12.0-18.0); MEAN CORPUSCULAR HEMOGLOBIN 29 pg (27-31); MEAN CORPUSCULAR HGB CONC 33 g/dL (33-37); MEAN CORPUSCULAR VOLUME 87.2 fL (80-94); MONOCYTES % (AUTO) 11.3 % (1.7-9.3); NEUTROPHILS # (AUTO) 5.5 K/uL (1.8-7.7); NEUTROPHILS % (AUTO) 61.9 % (42.2-75.2); PLATELET COUNT (AUTO) 452 K/uL (140-450); RED BLOOD CELL COUNT(AUTO) 2.91 MIL/uL (4.20-6.10); RED CELL DISTRIBUTION WIDTH 16.1 % (11.6-13.7); WHITE BLOOD COUNT (AUTO) 8.8 K/uL (4.8-10.8)
[2018-09-29 08:21] LABS: ANION GAP 13.3 (8-16); CREATININE 1.9 mg/dL (0.7-1.3); POTASSIUM 4.3 mmol/L (3.5-5.1); TOTAL BILIRUBIN 0.2 mg/dL (0.0-1.0)
[2018-09-29 08:22] LABS: ALBUMIN 1.7 g/dL (3.4-5.0)
[2018-09-29 08:48] LABS: MAGNESIUM 1.9 mg/dL (1.8-2.4); PHOSPHORUS 4.4 mg/dL (2.5-4.9)
--- NOTE | 2018-09-29 09:00 | NUR ---
CALLED [facility] SPOKE WITH KISHORE REGARDING THE D/C PLAN PER KISHORE STILL PENDING OF THE DISCUSSION BETWEEN THE DR'S .CM WILL F/U
--- NOTE | 2018-09-29 09:26 | NUR ---
PT RESTING IN BED. PAIN MEDICATION GIVEN AND PT IS MORE RELAXED. WILL CONTINUE TO ROUND FREQUENTLY ON PT. BED IN LOW POSITION, CALL LIGHT WITHIN REACH.
--- NOTE | 2018-09-29 10:51 | NUR ---
GAVE PAIN MEDICATION TO PT FOR SEVERE 10/10 PAIN. EXPLAINED TO PT HOW STRONG DILAUDID IS AND THAT HE HAS A RISK AT BECOMING DEPENDENT ON MED. PT HAD FLAT AFFECT TO TEACHING. GAVE MED BUT WILL SPEAK TO MD ABOUT PAIN MED FREQUENCY AND DOSAGE.
--- NOTE | 2018-09-29 11:07 | NUR ---
SPOKE WITH , COVERING FOR DR. GRAHAM. PER , CHANGE IN DILAUDID ORDER WILL BE MADE. ORDERED DILAUDID TO BE DECREASED TO 2MG FROM 3MG. FREQUENCY ALSO CHANGED FROM Q2H TO Q3H.
--- NOTE | 2018-09-29 12:00 | NUR ---
SPOKE WITH DR GAO REGARDING THE D/C PLAN DR GAO STATED [facility] DOES NOT WANT TO ACCEPT PATIENT, CALLED [facility] SPOKE WITH ELADIA STATED HE WILL DISCUSS WITH [facility] PAYROLL BENEFITS ADMINISTRATOR AND WILL CALL BACK
--- NOTE | 2018-09-29 12:09 | NUR ---
PT CONTINUES TO REFUSE HAVING LINENS CHANGED. ALSO CONTINUES TO REFUSE TO BE TURNED/REPOSITIONED. WILL TRY AGAIN WITH [facility] LATER.
--- NOTE | 2018-09-29 12:18 | NUR ---
CHECKED PT BLOOD SUGAR. BS 93. ALSO NOTIFIED PT OF DILAUDID ORDER CHANGE FROM 3MG TO 2MG AND FREQUENCY CHANGE FROM Q2H TO Q3H. PT VERBALIZED UNDERSTANDING. ALL OTHER PT NEEDS CURRENTLY MET. WILL CONTINUE TO ROUND FREQUENTLY ON PT. BED IN LOWEST POSITION, CALL LIGHT WITHIN REACH.
--- NOTE | 2018-09-29 13:16 | NUR ---
PT RESTING IN BED. ALL NEEDS CURRENTLY MET. WILL CONTINUE TO ROUND FREQUENTLY ON PT.
--- NOTE | 2018-09-29 13:41 | NUR ---
PT MOTHER UPSET OVER CHANGE IN DILAUDID ORDER. I EXPLAINED TO THE MOTHER THAT CHANGED PT ORDER. MOTHER STATED SHE WANTS TO SPEAK WITH MD. MD WILL BE PAGED.
--- NOTE | 2018-09-29 13:47 | NUR ---
PAGED TO NOTIFY THAT PT'S MOTHER IS UPSET OVER PT DILAUDID ORDER CHANGE. AWAITING CALLBACK FROM .
--- NOTE | 2018-09-29 14:04 | NUR ---
CALLED BACK. NOTIFIED ME HE WAS TOO BUSY TO TALK TO FAMILY AT THIS TIME. HE STATED THAT HE WILL CALL BACK WHEN HE HAS TIME.
--- NOTE | 2018-09-29 15:49 | NUR ---
I RECEIVED A CALL FROM ELADIA GRAMAJO THAT WANTED TO REQUEST DR CAICEDO THAT THE DRESSING CHANGE HAS TO BE ONCE A WEEK. PROVIDED DR CAICEDO'S CELL PHONE AND WILL F/U.
[2018-09-29 16:00] VITALS: BP 147/68
--- NOTE | 2018-09-29 16:03 | NUR ---
PT HAS BEEN REFUSING ALL SHIFT TO HAVE LINENS CHANGED OR TO BE REPOSITIONED. ESL TUTOR AND CHARGE NURSES AWARE OF SITUATION. EXPLAINED IMPORTANCE OF TURNING AND CHANGING OF LINENS TO PT FOR PREVENTION OF PRESSURE ULCERS AND INFECTION. PT VERBALIZED UNDERSTANDING BUT CONTINUES TO REFUSE.
--- NOTE | 2018-09-29 16:27 | NUR ---
PT IS IN PAIN AT THIS MOMENT. PAIN MEDICATION NOT DUE UNTIL 1702. WILL NOTIFY PT. ALL OTHER NEEDS MET AT THIS TIME. WILL CONTINUE TO ROUND FREQUENTLY ON PT.
--- NOTE | 2018-09-29 17:46 | NUR ---
PT RESTING IN BED. ALL NEEDS MET. WILL CONTINUE TO ROUND ON PT.
[2018-09-29] MEDS ORDERED: traMADol 50 MG TAB PO PRN (17:55)
--- NOTE | 2018-09-29 19:38 | NUR ---
ENDORSED PT TO QUALITATIVE RESEARCHER FOR CONTINUITY OF CARE. PT IN STABLE CONDITION AT THIS TIME.
--- NOTE | 2018-09-29 19:39 | NUR ---
Received endorsement from AM shift RN; patient A/Ox4, able to make needs known, [place] speaking, bedbound. Patient is talking with mother; introduced self, updated board. No SOB or distress noted, on room air. On contact precautions for MDRO wounds; observed and maintained. IV site on right upper arm PICC line, double lumen, running TPN at 100mL/hr and NS running at 42mL/hr. 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 Bed in the lowest position, call light within reach. Initial assessment done. Will continue to monitor.
[2018-09-29] MEDS: DEXTROSE IV SCH ×4 (21:00)
[2018-09-29] MEDS: MULTIVITAMIN IV SCH ×4 (21:00)
[2018-09-29] MEDS: AMINO ACIDS 8.5% IV SCH ×4 (21:00)
[2018-09-29] MEDS: [UNRECOGNIZED DRUG - OTHER] IV SCH ×4 (21:00)
--- NOTE | 2018-09-29 21:10 | NUR ---
Due meds given, tolerated well.
[2018-09-29] MEDS: ONDANSETRON 4 MG/2 ML VIAL IVP PRN (21:51)
--- NOTE | 2018-09-29 23:30 | NUR ---
Vitals taken, no distress noted.
[2018-09-30] VITALS: BP 115/68
[2018-09-30] MEDS: HYDROmorphone PFS 2 MG/ML SYR IVP PRN ×10 (00:16→23:18)
[2018-09-30] MEDS: BLOOD GLUCOSE MONITORING 1 DEV DEV FS SCH ×6 (00:22→23:24)
--- NOTE | 2018-09-30 02:10 | NUR ---
Checks made; patient awake, watching TV. No distress noted.
[2018-09-30] MEDS: NACL 0.9% 1,000 ML IV SCH (03:34)
--- NOTE | 2018-09-30 03:50 | NUR ---
Rounds done, no distress noted.
--- NOTE | 2018-09-30 06:25 | NUR ---
Vitals stable, due meds given. Will endorse to AM shift RN for continuity of care.
--- NOTE | 2018-09-30 07:15 | NUR ---
RECEIVED BEDSIDE REPORT FROM DIRECT CUSTOMER SERVICE REPRESENTATIVE RN, SID. PATIENT RESTING IN BED IN SUPINE POSITION, PATIENT RECEIVED 2MG DILAUDID FOR 8/10 PAIN, WILL REASSESS PAIN IN 30 MINUTES TO 1 HOUR. IF INFUSING WELL AT 22 ML/HR TO RIGHT UPPER ARM DOUBLE LUMEN PICC LINE, TPN ALSO INFUSING WELL TO SEPARATE LUMEN. RESPIRATIONS ARE EVEN AND UNLABORED T 18 BREATHS PER MINUTE. PATIENT IS RECEIVING DILAUDID 2MG Q2H FOR CHRONIC PAIN RELATED TO GONZALES AND SKIN GRAFTING. WILL CONTINUE TO MONITOR AND MEDICATE APPROPRIATE. BED LOW, CALL LIGHT IN REACH.
[2018-09-30 07:16] LABS: MAGNESIUM 2.1 mg/dL (1.8-2.4); PHOSPHORUS 3.8 mg/dL (2.5-4.9)
[2018-09-30 08:00] VITALS: BP 120/74
[2018-09-30 08:14] LABS: ANION GAP 10.6 (8-16); CARBON DIOXIDE 27.4 mmol/L (21-32); CREATININE 1.8 mg/dL (0.7-1.3)
--- NOTE | 2018-09-30 09:14 | NUR ---
ADMINISTERED 2MG DILAUDID IV FOR 9/10 PAIN TO THE RIGHT HIP AND BILATERAL LOWER EXTREMITIES. OFFERED TO ASSIST PATIENT WITH REPOSITIONING, HE REFUSED. PATIENT STATES THAT HE TURNS HIMSELF BUT HE IS STILL IN SUPINE POSITION FROM LAST ASSESSMENT. EDUCATED PATIENT ON IMPORTANCE OF TURNING EVERY 2 HOURS AND RELIEVING PRESSURE ON BONY AREAS, EXPLAINED NUBIA WE CAN TIME TH TURNING WITH THE PAIN MEDICATION TO PROVIDED RELIEF FROM PAIN ASSOCIATED WITH TURNING. PATIENT VERBALIZED UNDERSTANDING BUT STILL REFUSED TO BE TURNED AT THIS TIME. ASKED PATIENT WHEN WOULD BE THE BEST TIME TO TURN HIM AND HE SAID "LATER". WILL CONTINUE TO OFFER TURNING AND RE-EDUCATE PATIENT. BED IS LOW, CALL LIGHT IN REACH. TPN INFUSING WELL TO RIGHT UPPER ARM PICC LINE. IV FLUID ALSO INFUSING WELL. WILL CONTINUE TO MONITOR.
--- NOTE | 2018-09-30 10:35 | NUR ---
PATIENT SLEEPING, STILL IN SUPINE POSITION. WILL OFFER TO TURN AT NEXT PAIN MEDICATION ADMINISTRATION. BED IS LOW, CALL LIGHT IN REACH.
--- NOTE | 2018-09-30 12:15 | NUR ---
ADMINISTERED 2MG DILAUDID IV FOR RIGHT HIP BONE PAIN RELATED TO PRIOR HIP FRACTURE AND BILATERAL LOWER EXTREMITY PAIN RELATED TO SKIN GRAFT WOUNDS. PATIENT STILL REFUSING TO BE TURNED AT THIS TIME. RE-EDUCATED PATIENT ON IMPORTANCE OF TURNING AND CONSEQUENCES OF NOT TURNING. PATIENT IS STILL REFUSING TO BE TURNED. PATIENT IN SUPINE POSITION. GLUCOSE RELATED TO TPN ADMINISTRATION IS 92, NO INSULIN NEEDED. CALL LIGHT IN REACH BED LOW. WILL CONTINUE TO MONITOR AND TRY TO ENCOURAGE TURNING.
--- NOTE | 2018-09-30 13:54 | NUR ---
ELADIA FROM [facility] IN THE UNIT TO DISCUSS THE CASE WITH DR CAICEDO . TELEPHONE CONFERENCE MADE WITH DR CAICEDO ,MYSELF DARRON AND ELADIA FROM [facility] . ELADIA ASKED DR CAICEDO IF HE IS WILLING TO CONTINUE THE CARE AT [facility] AND THE DRESSING CHANGE OR DEBRIDEMENT HAS TO BE ONLY ONCE A WEEK. DR CAICEDO REPLIED HE WILL CONTINUE THE CARE AT [facility] , AND PT AND HIS MOTHER ARE DEMANDING THAT THE DRESSING CHANGE HAS TO BE UNDER ANESTHESIA . CM WILL F/U WITH PRIMARY DR FOR THE PAIN MANAGEMENT AND WILL DISCUSS WITH PATIENT'S MOTHER.
--- NOTE | 2018-09-30 14:15 | NUR ---
ADMINISTERED 2MG DILAUDID FOR 9/10 PAIN RELATED TO BILATERAL WOUNDS ON LOWER LEGS. PATIENT ALSO STATES PAIN IS IN HIS RIGHT HIP RELATED TO PREVIOUS FRACTURE WHICH HE STATS HAS NOT HEALED PROPERLY. PATIENT DESCRIBES PAIN BURNING AND SEVERE. PATIENT IS REFUSING TO TAKE TRAMADOL AND WILL ONLY ACCEPT DILAUDID. EDUCATED PATIENT THAT TRAMADOL TAKEN REGULARLY PROVIDED LONGER LASTING PAIN RELIEF, BUT PATIENT REFUSED TRAMADOL. PATIENT IS ALSO REFUSING ANY TYPE OF DRESSING CHANGE, OR POSITION CHANGE. EDUCATED PATIENT THAT IS IS IMPORTANT THAT HE CHANGE POSITIONS AT LEAST EVERY 2 HOURS TO AVOID SKIN BREAKDOWN ESPECIALLY ON AREAS THAT HAVE NEWLY GRAFTED SKIN OR WOUNDS. PATIENT STILL REFUSES. PATIENT STATES THAT WHEN HE IS MOVED BY OTHER PEOPLE "MY SKIN GETS TORN OFF AND MY WOUNDS BLEED". I EXPLAINED THAT IF WE USE A TEAM APPROACH AND LIFT HIM FULLY WITH THE DRAW SHEET, AND PLACE PILLOWS OR WEDGES PROPERLY, AND THEN LOWER HIM ONTO THEM WE WILL NOT TEAR THE SKIN, BUT HE STILL REFUSES. HE INSISTS THAT HE IS REPOSITIONING HIMSELF IN SMALL INCREMENTS BUT HE IS NOT ABLE TO DO SO. HE IS IN SUPINE POSITION AND HAS BEEN ALL DAY DESPITE REPEATED ATTEMPTS TO REPOSITION HIM. CHARGE NURSE AWARE.
--- NOTE | 2018-09-30 15:59 | NUR ---
09/30/18 RD FOLLOW UP COMPLETED PLEASE REFER TO NUTRITION ASSESSMENT UNDER CARE ACTIVITY FOR ESTIMATED NUTRITIONAL NEEDS. 1. CONTINUE TPN: D15%, AA 3.25% AT 100 ML/HR AND LIPIDS 10% (200 ML) -THIS WILL PROVIDE PATIENT WITH 1736 KCAL, 78 GM OF PROTEIN 2. CONTINUE BLAND/SOFT DIET 3. CONTINUE RODRIGUEZ BID 4. RECOMMENDED TO PATIENT TO EAT 925 CALORIES AND 25 GM OF PROTEIN FROM HIS DIET TO MEET 75% OR GREATER OF ESTIMATED NEEDS RD WILL FOLLOW UP 2-3 DAYS, HIGH RISK ALEXEI JOHNSTON RD
[2018-09-30 16:00] VITALS: BP 112/71
--- NOTE | 2018-09-30 17:05 | NUR ---
OFFERED TRAMADOL 50MG PO BUT PATIENT REFUSED. ADMINISTERED 2MG DILAUDID IV FOR 9/10 PAIN IN LOWER EXTREMITIES. RE-EDUCATED PATIENT ABOUT PAIN CONTROL AND REPOSITIONING. EXPLAINED THAT TRAMADOL PROVIDES LONGER LASTING PAIN RELIEF. PATIENT STATES "THEY GAVE THAT TO ME ONCE AND IT DI NOT HELP". EXPLAINED THAT THIS MEDICATION IS MORE EFFECTIVE WHEN TAKEN OVER TIME AND THAT IT IS A LONGER ACTING, OPIATE-LIKE PAIN RELIEVER. EXPLAINED THAT WE NEED TO FIND A LONGER ACTING MEDICATION FOR EMERGENCY COMMUNICATIONS OFFICER PAIN MANAGEMENT AND THAT WE CAN STILL PROVIDE RELIEF OF BREAKTHROUGH PAIN WITH MEDICATIONS LIKE DILAUDID. PATIENT VERBALIZED UNDERSTANDING AND AGREED TO TAKE THE TRAMADOL ON THE NEXT DOSING WHICH WILL BE AROUND 1905. RE-EDUCATED PATIENT ON THE IMPORTANCE OF REPOSITIONING. SPOKE TO PATIENT IN DETAIL REGARDING THE LAYERS OF SKIN, AND THE EFFECTS OF CONSTANT PRESSURE ON THOSE LAYERS. EXPLAINED THAT PATIENT HAS VERY LITTLE SUBCUTANEOUS TISSUE AND HIS NEWLY GRAFTED SKIN IS VERY SUSCEPTIBLE TO PRESSURE WOUNDS. PATIENT HAS A SACRAL WOUND THAT HE HAS NOT ALLOWED ME TO ASSESS. EXPLAINED THAT I NEED TO SEE THIS WOUND AND CLEAN IT. PATIENT REFUSED TO BE MOVED. PATIENT BELIEVES HE IS REPOSITIONING HIMSELF, BUT ADMITS HE HAS NO CONTROL OVER HIS LEGS. HE STATES "I DO NOT LIKE TO BE TOUCHED, I DO NOT WANT TO BLEED, LOSE BLOOD, GET DIZZY, OR GET TO WHERE I CAN'T EAT FOOD. I AM JUST NOW ABLE TO EAT FOOD." PATIENT IS VERY FEARFUL OF RE-INJURY OF HIS WOUNDS AND DOES NOT WANT ANY ONE OTHER THAN DR. CAICEDO TO TOUCH HIS DRESSINGS IN ANY WAY, INCLUDING BEING REPOSITIONED. WILL CONTINUE TO MONITOR AND OFFER ASSISTANCE, OFFER TO CLEAN, OFFER TO REPOSITION, AND TO PROVIDE PAIN RELIEF. EMPTIED URINAL. EXPRESSED GAS IN COLOSTOMY BAG. BED IS LOW, CALL LIGHT IS IN REACH.
[2018-09-30] MEDS: traMADol 50 MG TAB PO PRN (19:09)
--- NOTE | 2018-09-30 19:25 | NUR ---
ENDORSED PATIENT TO PERSONAL ASSISTANT RN IN STABLE CONDITION.
--- NOTE | 2018-09-30 19:26 | NUR ---
REPORT RECEIVED FROM AM NURSE AT BEDSIDE. PT IN STABLE CONDITION. AAOX4. INTRODUCED SELF TO PT. BOARD UPDATED. NO CURRENT COMPLAINTS OF PAIN. NO SOB. AFEBRILE. IV SITE R UA DOUBLE PICC RUNNING NS@22ML/HR PATENT AND INTACT. SKIN WARM, DRY, AND NOT INTACT DUE TO MULTIPLE WOUNDS AND GONZALES. BED LOCKED IN LOW POSITION. CALL CONN WITHIN REACH. SAFETY PRECAUTION IN PLACE. ALL NEEDS MET AT THIS TIME.
--- NOTE | 2018-09-30 20:26 | NUR ---
LIPID BAG HUNG AND RUNNING. DILAUDID GIVEN FOR 9/10 PAIN. PT TOLERATED WELL.
[2018-09-30] MEDS: DEXTROSE IV SCH ×4 (20:27)
[2018-09-30] MEDS: [UNRECOGNIZED DRUG - OTHER] IV SCH ×4 (20:27)
[2018-09-30] MEDS: MULTIVITAMIN IV SCH ×4 (20:27)
[2018-09-30] MEDS: AMINO ACIDS 8.5% IV SCH ×4 (20:27)
--- NOTE | 2018-09-30 21:45 | NUR ---
PT IN AWAKE IN BED WITH MOTHER AT BEDSIDE. NO S/S OF DISTRESS NOTED. WILL CONTINUE TO MONITOR.
--- NOTE | 2018-09-30 23:18 | NUR ---
DILAUDID GIVEN FOR 10/10 GENERAL PAIN. BS 101. NO INSULIN COVERAGE NEEDED.
[2018-10-01] VITALS: BP 115/73
[2018-10-01] MEDS: HYDROmorphone PFS 2 MG/ML SYR IVP PRN ×9 (01:22→23:36)
[2018-10-01] MEDS: ONDANSETRON 4 MG/2 ML VIAL IVP PRN ×4 (01:22→23:25)
--- NOTE | 2018-10-01 01:22 | NUR ---
DILAUDID GIVEN FOR 10/10 PAIN. PT TOLERATED WELL. ZOFRAN GIVEN FOR NAUSEA.
--- NOTE | 2018-10-01 03:30 | NUR ---
PT SLEEPING COMFORTABLY BUT AROUSABLE. NO S/S OF DISTRESS NOTED. NO COMPLAINTS OF PAIN. NO SOB. AFEBRILE. WILL CONTINUE TO MONITOR.
--- NOTE | 2018-10-01 04:56 | NUR ---
DILAUDID GIVEN FOR 10/10 GENERALIZED PAIN. ZOFRAN GIVEN FOR NAUSEA. PT TOLERATED WELL.
[2018-10-01] MEDS: BLOOD GLUCOSE MONITORING 1 DEV DEV FS SCH ×4 (06:03→23:52)
--- NOTE | 2018-10-01 06:04 | NUR ---
BS 78. NO INSULIN COVERAGE NEEDED.
[2018-10-01 06:57] LABS: PHOSPHORUS 3.7 mg/dL (2.5-4.9)
[2018-10-01 07:00] LABS: ANION GAP 10.8 (8-16); CARBON DIOXIDE 28.2 mmol/L (21-32); CREATININE 1.7 mg/dL (0.7-1.3)
--- NOTE | 2018-10-01 07:15 | NUR ---
RECEIVED BEDSIDE REPORT FORM CHANGE MANAGEMENT RNMUNIRA. PATIENT LYING IN SUPINE POSITION, HAS CONTINUED TO REFUSE TO BE TURNED, BED IS LOW, CALL LIGHT IS IN REACH. NO SIGNS OF DISTRESS ON RA. IV FLUID INFUSING WELL TO RIGHT UPPER ARM PICC LINE, TPN ALSO INFUSING TO RIGHT UPPER ARM PICC LINE, DOUBLE LUMEN. WILL CONTINUE TO MONITOR.
--- NOTE | 2018-10-01 07:26 | NUR ---
OFFERED TRAMADOL, PATIENT REFUSED. ADMINISTERED 2MG DILAUDID IV FOR 9/10 PAIN TO LOWER EXTREMITIES RELATED TO INFECTED SKIN GRAFT WOUNDS. OFFERED TO TURN PATIENT, PATIENT REFUSED, EDUCATED PATIENT THAT HIS SKIN IS VERY THIN AND FRAGILE AND CANNOT TOLERATE BEING IN SAME POSITION FOR EXTENDED TIME, THAT THE PRESSURE WILL NOT ALLOW THE SKIN TO HEAL. PATIENT VERBALIZED UNDERSTANDING BUT STILL REFUSED. PATIENT SAYS HE TURNS HIMSELF IN SMALL INCREMENTS. I EXPLAINED THAT TURNING HIMSELF WILL CAUSE MORE FRICTION ON HIS SKIN THAT IF HE WERE TO ALLOW US TO TURN HIM A TEAM USING LOG-ROLL TECHNIQUE. EDUCATED PATIENT ON LOG-ROLL TECHNIQUE. PATIENT STATED "MAYBE LATER". WILL RETURN LATER TO OFFER TURNING AND PAIN MANAGEMENT. TPN IS INFUSING TO RIGHT UPPER ARM PICC LINE, IV FLUID IS INFUSING TO RIGHT UPPER ARM PICC LINE, SEPARATE LUMENS. BED IS LOW, CALL LIGHT IS IN REACH. TRAY TABLE IS ARRANGED PER PATIENT REQUEST. WILL CONTINUE TO MONITOR.
[2018-10-01 08:00] VITALS: BP 111/70
--- NOTE | 2018-10-01 09:45 | NUR ---
PATIENT REQUESTING PAIN MEDICATION. OFFERED TRAMADOL. PATIENT REFUSED. PATIENT ONLY WANTS DILAUDID. EDUCATED PATIENT THAT DILAUDID IS FAST ACTING AND SHORT LASTING AND THAT AROUND THE CLOCK DOSING WITH TRAMADOL IS MORE EFFECTIVE FOR PAIN CONTROL AND THAT DILAUDID CAN STILL BE USED FOR BREAKTHROUGH PAIN. EDUCATED PATIENT THAT TRAMADOL IS MORE EFFECTIVE WHEN GIVEN CONSISTENTLY. PATIENT VERBALIZED UNDERSTANDING BUT WANTS DILAUDID IV. ADMINISTERED 2MG DILAUDID IV AND PATIENT AGREED TO TAKE THE TRAMADOL IN 1 HOUR AND MOVE FORWARD WITH ALTERNATING DOSING SCHEDULE. OFFERED TO TURN PATIENT, HE REFUSED. SHOWED PATIENT THE DRAINAGE FROM HIS LEFT LEG WOUNDS. DRAINAGE IS POOLING UNDER HIS LEFT LEG AND IS BOTH PURULENT AND BLOODY. OFFERED TO REINFORCE THE DRESSING AND TURN PATIENT. HE REFUSED. HE STATED HE DOES NOT WANT ANY NURSES TOUCHING HIS DRESSING ONLY THE SURGEON, DR. CAICEDO, IN THE O.R. ROOM. PAGED DR. CAICEDO TO INFORM HIM OF CURRENT DRAINAGE. WILL CONTINUE TO OFFER TURNIGN AND PAIN MANAGEMENT AND PROVIDE EDUCATION. BED IS LOW, CALL LIGHT IS IN REACH.
[2018-10-01] MEDS: traMADol 50 MG TAB PO PRN ×2 (10:57→18:18)
--- NOTE | 2018-10-01 10:57 | NUR ---
ARRIVED TO ROOM WITH TEAM OF 4 TO OFFER TURNING. ENSURED PATIENT THAT IT WILL BE A SMOOTH AND CONTROLLED PROCESS USING LOG ROLL TECHNIQUE. PATIENT ASKED THAT WE DO IT AFTER THE NEXT DILAUDID. I EXPLAINED THAT WE NEED TO STOP PUTTING IT OFF BECAUSE HIS SKIN IS BREAKING DOWN. HE HAS A SACRAL WOUND AND HIS SKIN GRAFTS CAN'T HEAL IF HE IS NOT TURNED. I ALSO EXPLAINED THAT I CAN GIVE HIM THE TRAMADOL NOW AND DILAUDID IN ANOTHER HOUR. PATIENT AGREED TO TAKE THE TRAMADOL. ADMINISTERED THE TRAMADOL 50 MG PO AND PREPARED THE STAFF AND SUPPLIES FOR TURNING. PATIENT THEN STATED THAT HE HAD NAUSEA AND DID NOT WANT TO BE TURNED AT THIS TIME. HE ASKED TO BE TURNED AT THE NEXT DILAUDID DOSE. PATIENT AND I MADE AN AGREEMENT TO TURN HIM, REPLACE TASHA, AND REINFORCE THE DRESSING AT THE NEXT DILAUDID DOSAGE. BED IS LOW, CALL LIGHT IS IN REACH, EMESIS BAG PROVIDED FOR C/O NAUSEA. OFFERED ZOFRAN, PATIENT REFUSED. WILL CONTINUE TO MONITOR.
--- NOTE | 2018-10-01 12:05 | NUR ---
ADMINISTERED 2MG IV DILAUDID, PATIENT TOLERATED MEDICATION WELL. VITALS STABLE. PATIENT ALLOWED ME TO REINFORCE DRESSING ON LEFT LEG AND REPLACE TASHA UNDERNEATH. PATIENT CRYING IN PAIN BUT ALLOWED IT. DID NOT ALLOW ME TO REINFORCE DRESSING ON RIGHT LEG OR LEFT UPPER LEG. PATIENT VERY FEARFUL OF MOVEMENT. PATIENT ALLOWED MINIMAL TURNING BUT SCREAMED IN PAIN AND BEGGED US TO STOP WHEN ROLLING. STOPPED PER PATIENT REQUEST. RE-EDUCATED PATIENT ON IMPORTANCE OF TURNING AND RELIEVING PRESSURE. PATIENT SAID IT IS TOO PAINFUL TO MOVE. PROVIDED CLEAN TOP SHEET. BED IS LOW, CALL LIGHT IN REACH. IV AND TPN INFUSING WELL TO RIGHT UPPER ARM PICC LINE.
--- NOTE | 2018-10-01 14:23 | NUR ---
ADMINISTERED 2 MG IV DILAUDID. PATIENT TOLERATED. PATIENT STILL REFUSING TO BE TURNED. PATIENT APPETITE IS IMPROVING. PATIENT ATE WELSH FOOD BROUGHT BY MOTHER YESTERDAY AND IS TOLERATING FISH, CHICKEN AND OTHER BLAND PROTEINS. PATIENT DRINKING GATORADE AND PROTEIN SUPPLEMENTS. BED LOW, CALL LIGHT IN REACH. WILL CONTINUE TO MONITOR.
[2018-10-01 16:00] VITALS: BP 122/78
--- NOTE | 2018-10-01 16:57 | NUR ---
ADMINISTERED 2MD DILAUDID IV, PATIENT TOLERATING WELL. PATIENT RESPIRATIONS REMAIN 16 AND HIGHER AT ALL DILAUDID ADMINISTRATIONS. PATIENT STILL REFUSING TO BE REPOSITIONED DESPITE REPEATED DISCUSSIONS ON THE TOPIC. BED LOW, CALL LIGHT IN REACH. Addendum: 10/02/18 at 0338 by Salvador Guevara RN 2MG OF DILAUDID NOT "2MD"
--- NOTE | 2018-10-01 18:18 | NUR ---
ADMINISTERED 50 MG PO TRAMADOL. PATIENT TOLERATED WELL. EDUCATED PATIENT ON THE NEED TO TAKE THIS MEDICATION Q4H TO BUILD UP AND EFFECTIVE LEVEL AND THAT DILAUDID CAN STILL BE USED FOR BREAKTHROUGH PAIN. PATIENT IS AGREEABLE TO THIS PLAN. PATIENT TOLERATING FOOD AND DRINK BUT STILL RECEIVING TPN DUE TO LOW APPETITE. BED IS LOW CALL LIGHT IN REACH.
--- NOTE | 2018-10-01 19:20 | NUR ---
RECEIVED BEDSIDE CHANGE OF SHIFT REPORT FROM DAY SHIFT NURSE . PATIENT AWAKE, ALERT, AND RESTING ON BED AT THIS TIME. PATIENT SPEAKS IN FULL COHERENT SENTENCES. PATIENT IS A/OX4. REGULAR, UNLABORED RESPIRATIONS WITH CLEAR LUNG SOUNDS THROUGHOUT ALL AREAS. REGULAR HEART RHYTHM WITH S1 AND S2 SOUND NOTED. NO SIGNS OF ACUTE DISTRESS NOTED. PATIENT REFUSED BEING REPOSITIONED DESPITE EDUCATION GIVEN ON BENEFITS OF FREQUENT REPOSITIONING, WELL RISKS OF PRESSURE ULCERS IF NOT REPOSITIONED. BED IN LOW POSITION AND CALL LIGHT WITHIN REACH.
--- NOTE | 2018-10-01 19:20 | NUR ---
ENDORSED PATIENT TO HR CLERK RN, ARACELIES IN STABLE CONDITION.
[2018-10-01] MEDS ORDERED: MULTIVITAMIN-12 10 ML VIAL IV ONE (20:39)
[2018-10-01] MEDS: NACL 0.9% 1,000 ML IV SCH (20:43)
--- NOTE | 2018-10-01 20:45 | NUR ---
ADMINISTERED 2MD DILAUDID IV PUSH, PER PATIENT'S COMPLAINT OF 10/19 PAIN. PATIENT TOLERATING PAIN MEDICATION WELL. WILL REASSESS PAIN IN ONE HOUR. Addendum: 10/02/18 at 0338 by Salvador Guevara RN 2MG OF DILAUDID NOT "2MD"
[2018-10-01] MEDS: DEXTROSE IV SCH ×4 (20:46)
[2018-10-01] MEDS: MULTIVITAMIN IV SCH ×4 (20:46)
[2018-10-01] MEDS: [UNRECOGNIZED DRUG - OTHER] IV SCH ×4 (20:46)
[2018-10-01] MEDS: AMINO ACIDS 8.5% IV SCH ×4 (20:46)
--- NOTE | 2018-10-01 23:36 | NUR ---
ADMINISTERED 2MD DILAUDID IV PUSH, AND 4MG ZOFRAN IV PUSH PER PATIENT'S COMPLAINT OF /10 PAIN AND NAUSEA. PATIENT TOLERATING MEDICATION WELL. WILL REASSESS PAIN IN ONE HOUR. Addendum: 10/02/18 at 0338 by Salvador Guevara RN 2MG OF DILAUDID NOT "2MD"
[2018-10-02] VITALS: BP 129/59
--- NOTE | 2018-10-02 01:00 | NUR ---
PATIENT REFUSED WOUND CARE/ASSESSMENT AND ALSO REFUSED REPOSITIONING.
[2018-10-02] MEDS: HYDROmorphone PFS 2 MG/ML SYR IVP PRN ×8 (03:02→22:17)
--- NOTE | 2018-10-02 03:02 | NUR ---
ADMINISTERED 2MG DILAUDID IV PUSH, PER PATIENT'S COMPLAINT OF 9/10 PAIN. PATIENT TOLERATING PAIN MEDICATION WELL. WILL REASSESS PAIN IN ONE HOUR. PATIENT DID NOT EAT HIS DINNER BECAUSE IT WAS COLD, BUT ATE HIS REQUESTED CHICKEN SALAD SANDWHICH THAT I GOT HIM. PATIENT DOES NOT NEED ANYTHING ELSE AT THIS TIME.
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
[2018-10-02] MEDS: BLOOD GLUCOSE MONITORING 1 DEV DEV FS SCH ×3 (06:27→18:11)
--- NOTE | 2018-10-02 07:18 | NUR ---
ENDORSED PATIENT TO DAY SHIFT RN. PATIENT EXHIBITS NO SIGNS OF ACUTE DISTRESS AT THIS TIME.
--- NOTE | 2018-10-02 07:26 | NUR ---
RECEIVED HAND OFF REPORT FROM HAND PROFILER NURSE, PT IS AWAKE IN BED PATIENT APPEARS STABLE AND IN NO APPARENT DISTRESS. ALL SAFETY MEASURES ARE IN PLACE. PT HAS RIGHT DOUBLE LUMEN PICC LINE. TPN AND IVF INFUSING. PT HAS CHOLEOSTOMY. WILL CONTINUE TO MONITOR.
[2018-10-02 08:05] VITALS: BP 120/58
[2018-10-02 08:18] LABS: ANION GAP 12.6 (8-16); CARBON DIOXIDE 27.2 mmol/L (21-32); CREATININE 1.6 mg/dL (0.7-1.3); POTASSIUM 3.8 mmol/L (3.5-5.1)
[2018-10-02 08:21] LABS: MAGNESIUM 1.9 mg/dL (1.8-2.4); PHOSPHORUS 3.8 mg/dL (2.5-4.9)
[2018-10-02] MEDS ORDERED: DULoxetine 30 MG CAPDR PO SCH ×2 (09:00→09:10)
--- NOTE | 2018-10-02 09:23 | NUR ---
FREQUENT ROUNDING ON PT PT IS AWAKE IN BED, OFFERED TO REPOSITION PATIENT PT REFUSED INFORMED PT ABOUT THE POTENTIAL COMPLICATIONS OF REFUSING TO TURN AND REPOSITION.
--- NOTE | 2018-10-02 11:45 | NUR ---
FREQUENT ROUNDING ON PT PT APPEARS STABLE AND IN NO APPARENT DISTRESS. ALL SAFETY MEASURES ARE IN PLACE. OFFERED TO REPOSITION PT PT REFUSED PROVIDED EDUCATION ON THE COMPLICATIONS THAT COULD OCCUR WHEN REFUSING REPOSITIONING. PT STILL REFUSING REPOSITIONING. WILL CONTINUE TO MONITOR.
--- NOTE | 2018-10-02 13:45 | NUR ---
frequent rounding on pt pt appears stable in bed offered to help pt reposition pt refused provided education.
--- NOTE | 2018-10-02 15:52 | NUR ---
10/02/18 RD FOLLOW UP COMPLETED PLEASE REFER TO NUTRITION PROGRESS NOTE UNDER CARE ACTIVITY FOR ESTIMATED NUTRITION NEEDS. RD RECOMMENDATIONS: 1. CONTINUE TPN: D15%, AA 3.25% AT 100 ML/HR AND LIPIDS 10% (200 ML) -THIS WILL PROVIDE PATIENT WITH 1736 KCAL, 78 GM OF PROTEIN 2. CONTINUE BLAND/SOFT DIET 3. CONTINUE RODRIGUEZ BID 4. RD WILL FOLLOW UP 2-3 DAYS, HIGH RISK CELESTINA DENT MBA, RD
--- NOTE | 2018-10-02 15:53 | NUR ---
FREQUENT ROUNDING ON PT PT APPEARS STABLE AND IN NO APPARENT DISTRESS. ALL SAFETY MEASURES ARE IN PLACE WILL CONTINUE TO MONITOR. OFFERED PT TO HELP REPOSITION PT REFUSED PROVIDED EDUCATION
[2018-10-02 16:05] VITALS: BP 129/77
--- NOTE | 2018-10-02 16:27 | NUR ---
PER ELADIA FROM [facility], CNO FROM [facility] COULD NOT MEET WITH THE MOTHER UNTIL 1400 ON THURSDAY.
--- NOTE | 2018-10-02 17:47 | NUR ---
FREQUENT ROUNDING ON PT PT APPEARS STABLE AND IN NO APPARENT DISTRESS. ALL SAFETY MEASURES ARE IN PLACE WILL CONTINUE TO MONITOR. OFFERED TO HELP REPOSITION PT PT REFUSED PROVIDED EDUCATION
--- NOTE | 2018-10-02 19:14 | NUR ---
ENDORSED PT TO PM RN PT APPEARS STABLE AND IN NO APPARENT DISTRESS. ALL SAFETY MEASURES ARE IN PLACE
--- NOTE | 2018-10-02 19:15 | NUR ---
Received endorsement from AM shift RN; patient A/Ox4, able to make needs known, French speaking, bedbound. Patient is using tablet; introduced self, updated board. No SOB or distress noted, on room air. On contact precautions for MDRO wounds; observed and maintained. IV site on right upper arm PICC line, double lumen, running TPN at 100mL/hr and NS running at 22mL/hr. 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 Bed in the lowest position, call light within reach. Initial assessment done. Will continue to monitor.
[2018-10-02] MEDS: NACL 0.9% 1,000 ML IV SCH (19:16)
[2018-10-02] MEDS: MULTIVITAMIN IV SCH ×4 (19:34)
[2018-10-02] MEDS: DEXTROSE IV SCH ×4 (19:34)
[2018-10-02] MEDS: AMINO ACIDS 8.5% IV SCH ×4 (19:34)
[2018-10-02] MEDS: [UNRECOGNIZED DRUG - OTHER] IV SCH ×4 (19:34)
--- NOTE | 2018-10-02 20:50 | NUR ---
TPN bag and IV tubing changed at this time.
--- NOTE | 2018-10-02 23:40 | NUR ---
Vitals taken, no SOB or distress noted.
[2018-10-03] VITALS: BP 118/68
[2018-10-03] MEDS: BLOOD GLUCOSE MONITORING 1 DEV DEV FS SCH ×4 (00:49→18:19)
--- NOTE | 2018-10-03 01:30 | NUR ---
Rounds done; patient awake, using tablet. No distress noted.
[2018-10-03] MEDS: HYDROmorphone PFS 2 MG/ML SYR IVP PRN ×10 (01:50→23:58)
[2018-10-03] MEDS: ONDANSETRON 4 MG/2 ML VIAL IVP PRN ×2 (01:50→19:59)
--- NOTE | 2018-10-03 04:30 | NUR ---
Checks made; patient awake, watching TV. No distress noted.
--- NOTE | 2018-10-03 06:15 | NUR ---
Due meds given, vitals taken. Will endorse to AM shift RN for continuity of care.
--- NOTE | 2018-10-03 07:26 | NUR ---
RECEIVED HAND OFF REPORT FROM PM RN PT ASLEEP IN BED NOTABLE CHEST RISE AND FALL. ALL SAFETY MEASURES ARE IN PLACE. COLOSTOMY. RIGHT UPPER ARM PICC INFUSING TPN AND NS. PT ON ROOM AIR
[2018-10-03 08:34] LABS: ANION GAP 12.5 (8-16); CARBON DIOXIDE 26.6 mmol/L (21-32); CREATININE 1.6 mg/dL (0.7-1.3); POTASSIUM 4.1 mmol/L (3.5-5.1)
[2018-10-03 08:35] VITALS: BP 124/64
[2018-10-03 08:35] LABS: PHOSPHORUS 4.2 mg/dL (2.5-4.9)
[2018-10-03] MEDS: DULoxetine 30 MG CAPDR PO SCH ×2 (09:41→09:44)
--- NOTE | 2018-10-03 09:44 | NUR ---
PT REFUSED CYMBALTA PT STATED HE IS UNABLE TO SWALLOW RIGHT NOW WILL OFFER IT TO PT IN AN HOUR OR SO
--- NOTE | 2018-10-03 11:34 | NUR ---
FREQUENT ROUNDING ON PT PT APPEARS STABLE AND IN NO APPARENT DISTRESS. ALL SAFETY MEASURES ARE IN PLACE ASKED IF HE WOULD LIKE TO BE REPOSITIONED AND TURNED PT REFUSED. EDUCATED PT ON RISK OF NOT TURNING
[2018-10-03 16:35] VITALS: BP 123/68
--- NOTE | 2018-10-03 19:33 | NUR ---
ENDORSED PT TO PM RN PT STABLE
--- NOTE | 2018-10-03 19:34 | NUR ---
RECEIVED BEDSIDE REPORT FROM DAY SHIFT NURSE KATIUSKA RN, PT STABLE, NO DISTRESS NOTED, CENTRAL LINE TO R UPPER ARM, PATENT, INTACT, INFUSING WELL, PT ON ROOM AIR, NO SOB NOTED, DRESSINGS INTACT, PT REFUSED WOUND ASSESSMENT, COLOSTOMY BAG IN PLACE, INITIAL ASSESSMENT DONE, ALL SAFETY PRECAUTION MET, CALL LIGHT WITHIN REACH, WILL CONTINUE TO MONITOR.
[2018-10-03] MEDS: MULTIVITAMIN IV SCH ×4 (19:50)
[2018-10-03] MEDS: [UNRECOGNIZED DRUG - OTHER] IV SCH ×4 (19:50)
[2018-10-03] MEDS: DEXTROSE IV SCH ×4 (19:50)
[2018-10-03] MEDS: AMINO ACIDS 8.5% IV SCH ×4 (19:50)
[2018-10-03] MEDS: NACL 0.9% 1,000 ML IV SCH (19:50)
--- NOTE | 2018-10-03 19:59 | NUR ---
PT C/O PAIN, MEDICATION GIVEN PER MD ORDER, PT ALSO C/O NAUSEA AND IS VOMITING, ZOFRAN PER MD ORDER ADMINISTERED, TPN BAG AND TUBING CHANGED, PT TOLERATED WELL, NO DISTRESS NOTED, PT RESTING, CALL LIGHT WITHIN REACH, WILL CONTINUE TO MONITOR.
--- NOTE | 2018-10-03 21:56 | NUR ---
PT C/O PAIN, PAIN MEDICATION ADMINISTERED, PT TOLERATED WELL, NO DISTRESS NOTED, CALL LIGHT WITHIN REACH, WILL CONTINUE TO MONITOR.
[2018-10-03 23:58] VITALS: BP 153/91
--- NOTE | 2018-10-03 23:58 | NUR ---
PT C/O PAIN, PAIN MEDICATION ADMINISTERED, BLOOD SUGAR CHECKED 94, V/S TAKEN, PT TOLERATED WELL, NO DISTRESS NOTED, CALL LIGHT WITHIN REACH, WILL CONTINUE TO MONITOR.
[2018-10-04] MEDS: BLOOD GLUCOSE MONITORING 1 DEV DEV FS SCH ×5 (00:04→23:55)
[2018-10-04] MEDS: HYDROmorphone PFS 2 MG/ML SYR IVP PRN ×11 (02:06→23:47)
--- NOTE | 2018-10-04 02:06 | NUR ---
PT STATED HE IS FEELING A LOT OF PAIN, PAIN MEDICATION PER MD ORDER ADMINISTERED, PT TOLERATED WELL, NO DISTRESS NOTED, CALL LIGHT WITHIN REACH WILL CONTINUE TO MONITOR.
--- NOTE | 2018-10-04 04:04 | NUR ---
PT CALLED AND REQUESTED PAIN MEDICATION, PAIN LEVEL OF 10/10, PAIN MEDICATION PER DR ORDER ADMINISTERED, PT TOLERATED WELL, NO DISTRESS NOTED, CALL LIGHT WITHIN REACH, WILL CONTINUE TO MONITOR.
--- NOTE | 2018-10-04 07:22 | NUR ---
ENDORSED PT TO DAY SHIFT NURSE RADHA CAPPS, PT STABLE, NO DISTRESS NOTED, CALL LIGHT WITHIN REACH.
--- NOTE | 2018-10-04 07:23 | NUR ---
RECEIVED REPORT FROM ASSET SPECIALIST RN, DANIELLE. PATIENT LYING IN SUPINE POSITION, NO SIGNS OF DISTRESS. PATIENT C/O 7/10 PAIN IN LOWER EXTREMITIES BUT WAS RECENTLY MEDICATED. WILL MEDICATED WHEN PRN SCHEDULE ALLOWS. NO SIGNS OF DISTRESS ON RA, RESPIRATIONS ARE EVEN AND UNLABORED AT 16 PER MINUTE. TPN IS INFUSING AT 100 ML/HR AND IV FLUID IS INFUSING AT 22ML/HR. BED IS LOW, CALL LIGHT IS IN REACH.
[2018-10-04 08:00] VITALS: BP 123/76
--- NOTE | 2018-10-04 08:05 | NUR ---
ADMINISTERED 2MG DILAUDID IV FOR 10/10 PAIN IN RIGHT HIP AND LOWER EXTREMITIES. OFFERED TO REPOSITION PATIENT, PATIENT REFUSED. EDUCATED PATIENT ON IMPORTANCE OF RELIEVING PRESSURE ON HIS SKIN GRAFTS. PATIENT STATES IT IS TOO PAINFUL. WILL CONTINUE TO OFFER REPOSITIONING AND EDUCATE PATIENT. BED IS LOW, FREIDA LIGHT IS IN REACH. WILL CONTINUE TO MONITOR..
[2018-10-04 09:04] LABS: BASOPHILS # (AUTO) 0.1 K/uL (0.00-0.22); BASOPHILS % (AUTO) 1.4 % (0.0-2.0); EOSINOPHILS # (AUTO) 0.4 K/uL (0-0.4); EOSINOPHILS % (AUTO) 5.9 % (0.0-4.0); HEMATOCRIT 25.5 % (36-52); HEMOGLOBIN 8.4 g/dL (12.0-18.0); LYMPHOCYTES % (AUTO) 28.2 % (20.5-51.1); MEAN CORPUSCULAR HEMOGLOBIN 29 pg (27-31); MEAN CORPUSCULAR HGB CONC 33 g/dL (33-37); MEAN CORPUSCULAR VOLUME 87.7 fL (80-94); MONOCYTES # (AUTO) 0.8 K/uL (0.8-1.0); MONOCYTES % (AUTO) 10.9 % (1.7-9.3); NEUTROPHILS # (AUTO) 3.8 K/uL (1.8-7.7); NEUTROPHILS % (AUTO) 53.6 % (42.2-75.2); PLATELET COUNT (AUTO) 425 K/uL (140-450); RED CELL DISTRIBUTION WIDTH 16.2 % (11.6-13.7); WHITE BLOOD COUNT (AUTO) 7.1 K/uL (4.8-10.8)
[2018-10-04 09:15] LABS: ANION GAP 9.9 (8-16); CREATININE 1.4 mg/dL (0.7-1.3); POTASSIUM 3.9 mmol/L (3.5-5.1)
[2018-10-04 09:18] LABS: MAGNESIUM 1.7 mg/dL (1.8-2.4)
--- NOTE | 2018-10-04 09:38 | NUR ---
SW contacted patient's mother Karla Perez [phone] to inquire when she would be at hospital to have conference with KATHRYN Ellington and Director Of Security of Crew Foreman and Case Management Dasia. Patient stated that she will arrive at [facility] at 2:00pm. SW will follow up as needed.
--- NOTE | 2018-10-04 10:15 | NUR ---
PATIENT RECEIVED 2MG OF IV DILAUDID FOR 9/10 PAIN. WILL CONTINUE TO MONITOR.
[2018-10-04] MEDS ORDERED: ONDA2SOL45 IVP (10:22)
[2018-10-04] MEDS ORDERED: D50SYR IVP (10:22)
[2018-10-04] MEDS ORDERED: ACET650S53 PO (10:22)
[2018-10-04] MEDS ORDERED: CLON0.1T42 PO (10:22)
[2018-10-04] MEDS ORDERED: GLUC-805 FS (10:22)
[2018-10-04] MEDS ORDERED: DULO30EC PO (10:22)
[2018-10-04] MEDS ORDERED: Tpn Per Pharmacy MC (10:22)
[2018-10-04] MEDS ORDERED: DIL2I IVP (10:22)
[2018-10-04] MEDS ORDERED: HUMSLIDE SUBQ (10:22)
[2018-10-04] MEDS ORDERED: MAG SULF 2000 MG/WATER PREMIX 50 ML IV SCH (11:00)
[2018-10-04] MEDS ORDERED: DEXTROSE IV SCH ×4 (11:41)
[2018-10-04] MEDS ORDERED: [UNRECOGNIZED DRUG - OTHER] IV SCH ×4 (11:41)
[2018-10-04] MEDS ORDERED: AMINO ACIDS 8.5% IV SCH ×4 (11:41)
[2018-10-04] MEDS ORDERED: MULTIVITAMIN IV SCH ×4 (11:41)
--- NOTE | 2018-10-04 12:50 | NUR ---
ADMINISTERED 2MG IV DILAUDID FOR 9/10 LOWER EXTREMITY PAIN AND 2G IV MAGNESIUM SULFATE. PATIENT TOLERATED BOTH WELL. NO C/O NAUSEA AT THIS TIME, RESPIRATIONS ARE EVEN, AND UNLABORED. EMPTIED 100ML FROM COLOSTOMY BAG, EMPTIED 350ML FROM URINAL CLEAR STRAW COLORED URINE. OFFERED TO REPOSITION PATIENT PATIENT REFUSED. LEFT AND RIGHT LOWER EXTREMITY BANDAGES ARE SATURATE DON THE UNDERSIDE BUT PATIENT REFUSES CHANGING OR REINFORCING. PATIENT IS SCHEDULED TO HAVE DRESSINGS CHANGED IN OR TOMORROW NAD HE WANTS TO WAIT FOR THAT TIME. EDUCATED PATIENT ON IMPORTANCE OF REPOSITIONING, PATIENT VERBALIZED UNDERSTANDING BUT REFUSED. WILL CONFINTUE TO MONITOR AND OFFER ASSISTANCE.
--- NOTE | 2018-10-04 14:28 | NUR ---
ADMINISTERED 2MG IV DILAUDID FOR 8/10 PAIN IN LOWER EXTREMITIES. PATIENT TOLERATING WELL. MOTHER AND CASE MANAGEMENT AT BEDSIDE. BED IS LOW, CALL LIGHT IN REACH. TRAY IN REACH. WILL CONTINUE TO MONITOR.
[2018-10-04 16:00] VITALS: BP 120/73
--- NOTE | 2018-10-04 16:00 | NUR ---
WE HAD A MEETING WITH PT ,PATIENT'S MOTHER , DARRON ,AND FROM [facility] [employer] A VERY BRIEF DISCUSSION , EXPECTATION, THAT INVOLVE PATIENT CARE SUCH PAIN MANAGEMENT, REPOSITION, WOUND CARE WITHOUT ANESTHESIA AND DIET. [employer] EXPLAINED TO THE PATIENT AND MOTHER THAT WHAT [employer] PLAN TO MEET THE GOAL. PER [employer] PORT PATROL OFFICER TO SEE THE WOUND PICTURE AND TO COME UP WITH THE PLAN. PATIENT AND PATIENT'S MOTHER AGREED. CM TO F/U TOMORROW
--- NOTE | 2018-10-04 16:50 | NUR ---
ADMINISTERED 2MG DILAUDID IV FOR 10/10 PAIN IN LOWER EXTREMITIES. PATIENT DENIES NAUSEA OR VOMITING. DANIELLEE RAT BEDSIDE. ASKED PATIENT WHEN IS A GOOD TIME TO BE REPOSITIONED PATIENT RESPONDED "LATER". I ASKED WHEN, HE REPLIED "TONIGHT". I REMINDED PATIENT AND MOTHER THAT TURNING AT LEAST EVERY 2 HOURS IS NEEDED FOR HIS FRAGILE SKIN TO HEAL AND AVOID FURTHER DAMAGE. MOTHER ENCOURAGED PATIENT TO TURN, PATIENT SAID HE WOULD TURN LATER. CALL IGHT IS IN REACH, BED IS LOW. ALL NEEDS ME AT THIS TIME.
[2018-10-04] MEDS: traMADol 50 MG TAB PO PRN (18:05)
--- NOTE | 2018-10-04 18:05 | NUR ---
ADMINISTERED TRAMADOL 50 MG PO FOR CONTINUED SEVER PAIN. ASKED PATIENT IF HE WOULD ALLOW US TO TURN HIM, PATIENT SAID "NOT NOW". MOTHER AT BEDSIDE. WILL CONTINUE TO OFFER TURNING ASSISTANCE. NO C/O NAUSEA OR VOMITING. BED LOW CALL LIGHT IN REACH.
[2018-10-04] MEDS: NACL 0.9% 1,000 ML IV SCH (18:54)
--- NOTE | 2018-10-04 19:28 | NUR ---
ADMINISTERED 2MG DILAUDID FOR 10/10 PAIN IN LOWER EXTREMITIES. RESPIRATIONS ARE EVEN AND UNLABORED AT 16 PER MINUTE. BED IS LOW, CALL LIGHT IN REACH.
--- NOTE | 2018-10-04 19:30 | NUR ---
ENDORSED PATIENT TO ELECTRICIAN SOUND RNZENAIDA IN STABLE CONDITION.
--- NOTE | 2018-10-04 19:31 | NUR ---
RECEIVED BEDSIDE REPORT FROM DAY SHIFT NURSE RADHA RN, NO S/S OF SOB NOTED ON ROOM AIR. PT STABLE, NO DISTRESS NOTED, CENTRAL LINE TO R UPPER ARM, PATENT, INTACT, INFUSING WELL, PT REFUSED WOUND ASSESSMENT, COLOSTOMY BAG IN PLACE, INITIAL ASSESSMENT DONE, ALL SAFETY PRECAUTION MET, CALL LIGHT WITHIN REACH, WILL CONTINUE TO MONITOR.
[2018-10-04] MEDS: ONDANSETRON 4 MG/2 ML VIAL IVP PRN (19:58)
[2018-10-04] MEDS: [UNRECOGNIZED DRUG - OTHER] IV SCH ×4 (19:58)
[2018-10-04] MEDS: DEXTROSE IV SCH ×4 (19:58)
[2018-10-04] MEDS: AMINO ACIDS 8.5% IV SCH ×4 (19:58)
[2018-10-04] MEDS: MULTIVITAMIN IV SCH ×4 (19:58)
--- NOTE | 2018-10-04 21:31 | NUR ---
PT C/O 09/18, ABD AND LEG PAIN, ADMINISTERED DILAUDID MD ORDERED. PT TOLERATED WELL. WILL CONTINUE TO MONITOR.
--- NOTE | 2018-10-04 22:30 | NUR ---
RECEIVED CONSENT FOR DRESSING CHANGING PROCEDURE MD ORDERED. TRIED TO ASSESS SACRAL AREA AND CHANGE PT'S POSITION, PT REFUSED D/T SEVERE PAIN. PT MOTHER AT BEDSIDE.
--- NOTE | 2018-10-04 23:47 | NUR ---
BS CHECKED, 115. NO INSULIN COVERAGE NEEDED. PT C/O 10/19, ABD AND LEG PAIN, ADMINISTERED DILAUDID MD ORDERED. PT TOLERATED WELL. WILL CONTINUE TO MONITOR.
[2018-10-05] VITALS: BP 127/70
--- NOTE | 2018-10-05 02:19 | NUR ---
PT C/O 10/19, ABD AND LEG PAIN, ADMINISTERED DILAUDID MD ORDERED. PT TOLERATED WELL. WILL CONTINUE TO MONITOR.
[2018-10-05] MEDS: HYDROmorphone PFS 2 MG/ML SYR IVP PRN ×9 (02:20→23:28)
--- NOTE | 2018-10-05 04:37 | NUR ---
PT C/O 09/18, ABD AND LEG PAIN, ADMINISTERED DILAUDID MD ORDERED. PT TOLERATED WELL. WILL CONTINUE TO MONITOR.
[2018-10-05] MEDS: BLOOD GLUCOSE MONITORING 1 DEV DEV FS SCH ×4 (06:05→23:36)
--- NOTE | 2018-10-05 06:05 | NUR ---
BS CHECKED, 97. NO INSULIN COVERAGE NEEDED.
--- NOTE | 2018-10-05 06:34 | NUR ---
PT C/O 09/18, ABD AND LEG PAIN, ADMINISTERED DILAUDID MD ORDERED. PT TOLERATED WELL. WILL CONTINUE TO MONITOR.
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
--- NOTE | 2018-10-05 07:50 | NUR ---
OR NURSES ON UNIT TO TAKE PATIENT FOR I&D AND DEBRIDEMENT. WILL CONTINUE TO MONITOR WHEN PATIENT RETURNS ON UNIT.
[2018-10-05 08:00] VITALS: BP 125/75
[2018-10-05] MEDS: DULoxetine 30 MG CAPDR PO SCH (09:00)
[2018-10-05] MEDS ORDERED: SEVOFLURANE 250 ML BTL INH ONE (09:11)
[2018-10-05] MEDS ORDERED: PROPOFOL 200 MG/20 ML VIAL IV ONE (09:11)
[2018-10-05] MEDS ORDERED: MIDAZOLAM 2 MG/2 ML VIAL ONE (09:22)
[2018-10-05] MEDS ORDERED: fentaNYL 0.05 MG/ML VIAL ONE (09:23)
[2018-10-05] MEDS ORDERED: NACL 0.9% 1,000 ML IV SCH (09:55)
[2018-10-05] MEDS ORDERED: HYDROmorphone 1 MG/ML AMP IVP PRN (09:55)
[2018-10-05] MEDS ORDERED: diphenhydrAMINE 50 MG/ML VIAL IVP PRN (09:55)
[2018-10-05] MEDS ORDERED: ONDANSETRON 4 MG/2 ML VIAL IVP PRN (09:55)
[2018-10-05] MEDS: MULTIVITAMIN IV SCH ×8 (09:56→19:53)
[2018-10-05] MEDS: [UNRECOGNIZED DRUG - OTHER] IV SCH ×8 (09:56→19:53)
[2018-10-05] MEDS: AMINO ACIDS 8.5% IV SCH ×8 (09:56→19:53)
[2018-10-05] MEDS: DEXTROSE IV SCH ×8 (09:56→19:53)
[2018-10-05] MEDS ORDERED: HYDROmorphone PFS 2 MG/ML SYR ONE (10:24)
--- NOTE | 2018-10-05 10:45 | NUR ---
PATIENT BACK FROM OR. NO DISTRESS NOTED. PAIN WITHIN TOLERABLE AT THIS TIME. RESPIRATIONS EVEN, UNLABORED, ON ROOM AIR. V/S STABLE. IVF AND TPN RECONNECTED TO PATIENT AND INFUSING PER MD ORDERS. SAFETY MEASURES IN PLACE, CALL LIGHT WITHIN REACH. WILL CONTINUE TO MONITOR.
[2018-10-05 11:09] LABS: BASOPHILS # (AUTO) 0.1 K/uL (0.00-0.22); BASOPHILS % (AUTO) 1.3 % (0.0-2.0); EOSINOPHILS # (AUTO) 0.5 K/uL (0-0.4); EOSINOPHILS % (AUTO) 5.5 % (0.0-4.0); HEMATOCRIT 26.6 % (36-52); HEMOGLOBIN 8.6 g/dL (12.0-18.0); LYMPHOCYTES # (AUTO) 1.6 K/uL (2.0-11.5); LYMPHOCYTES % (AUTO) 16.1 % (20.5-51.1); MEAN CORPUSCULAR HEMOGLOBIN 29 pg (27-31); MEAN CORPUSCULAR HGB CONC 32 g/dL (33-37); MEAN CORPUSCULAR VOLUME 88.4 fL (80-94); MONOCYTES # (AUTO) 0.9 K/uL (0.8-1.0); MONOCYTES % (AUTO) 9.6 % (1.7-9.3); NEUTROPHILS # (AUTO) 6.5 K/uL (1.8-7.7); NEUTROPHILS % (AUTO) 67.5 % (42.2-75.2); PLATELET COUNT (AUTO) 427 K/uL (140-450); RED CELL DISTRIBUTION WIDTH 16.3 % (11.6-13.7); WHITE BLOOD COUNT (AUTO) 9.7 K/uL (4.8-10.8)
[2018-10-05 11:37] LABS: MAGNESIUM 1.7 mg/dL (1.8-2.4); PHOSPHORUS 4.5 mg/dL (2.5-4.9)
[2018-10-05 12:30] LABS: ANION GAP 12.6 (8-16); CARBON DIOXIDE 25.3 mmol/L (21-32); CREATININE 1.5 mg/dL (0.7-1.3); POTASSIUM 3.9 mmol/L (3.5-5.1)
--- NOTE | 2018-10-05 13:00 | NUR ---
PATIENT REFUSED TO BE TURNED OR HAVE WOUND CARE ASSESSMENT/DRESSING CHANGE DUE TO PAIN. WILL CONTINUE TO MONITOR.
[2018-10-05] MEDS: traMADol 50 MG TAB PO PRN (13:36)
--- NOTE | 2018-10-05 14:02 | NUR ---
10/05/18 RD FOLLOW UP COMPLETED PLEASE REFER TO NUTRITION ASSESSMENT UNDER CARE ACTIVITY FOR ESTIMATED NUTRITIONAL NEEDS. 1. CONTINUE TPN: D15%, AA 4.25% AT 100 ML/HR AND LIPIDS 10% (240 ML) -THIS WILL PROVIDE PATIENT WITH 1872 KCAL, 102 GM OF PROTEIN 2. CONTINUE BLAND/SOFT DIET 3. CONTINUE RODRIGUEZ BID 4. RD WILL FOLLOW UP 2-3 DAYS, HIGH RISK ALEXEI JOHNSTON RD
--- NOTE | 2018-10-05 15:00 | NUR ---
PATIENT REFUSED TO BE TURNED. WILL CONTINUE TO MONITOR.
[2018-10-05 16:00] VITALS: BP 119/67
[2018-10-05] MEDS ORDERED: MAG SULF 2000 MG/WATER PREMIX 50 ML IV SCH (16:00)
--- NOTE | 2018-10-05 16:40 | NUR ---
PATIENT LYING DOWN IN BED WITH COMPLAINTS OF 10/10 GENERALIZED PAIN. DILAUDID GIVEN AT THIS TIME. WILL CONTINUE TO MONITOR.
[2018-10-05] MEDS: NACL 0.9% 1,000 ML IV SCH (17:59)
--- NOTE | 2018-10-05 18:53 | NUR ---
PATIENT COMPLAINS OF PAIN. DILAUDID GIVEN AT THIS TIME. WILL CONTINUE TO MONITOR.
--- NOTE | 2018-10-05 19:27 | NUR ---
GAVE REPORT TO RECRUITMENT ASSISTANT NURSE FOR CONTINUITY OF CARE. PATIENT IN STABLE CONDITION.
--- NOTE | 2018-10-05 19:30 | NUR ---
RECEIVED PATIENT REPORT AT BEDSIDE. PATIENT IS AWAKE, ALERT AND ORIENTED. PT WATCHING TELEVISION WITH MOTHER AT BEDSIDE. DRESSING NOTED TO BLE, S/P I&D today. MINIMAL SEROSANGUINEOUS DRAINAGE NOTED. UNABLE TO ASSESS POSTERIOR SIDE OF THE PATIENT. PATIENT IS SENSITIVE DUE TO PAIN AND REFUSES TO BE REPOSITIONED. TPN AND IVF INFUSING ON THE RIGHT UPPER ARM PICC. PT REPORTS PAIN TO LOWER EXTREMITIES. WILL MEDICATE ORDERED. BED LOWERED WITH CALL LIGHT WITHIN REACH.
[2018-10-05 20:00] VITALS: BP 109/61
--- NOTE | 2018-10-05 23:39 | NUR ---
PATIENT AWAKE IN BED, WATCHING TELEVISION. NO S/S OF DISTRESS. PATIENT MEDICATED FOR PAIN. WILL CONTINUE TO MONITOR
[2018-10-06] VITALS: BP 124/69
[2018-10-06] MEDS: HYDROmorphone PFS 2 MG/ML SYR IVP PRN ×11 (01:29→23:48)
[2018-10-06] MEDS: BLOOD GLUCOSE MONITORING 1 DEV DEV FS SCH ×3 (05:44→18:04)
--- NOTE | 2018-10-06 05:45 | NUR ---
PATIENT REFUSES TO HAVE HIS COLOSTOMY BAG EMPTIED. PATIENT STATES THERE IS NOT ENOUGH IN THE BAG TO BE EMPTIED.
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
--- NOTE | 2018-10-06 07:25 | NUR ---
PATIENT REPORT GIVEN AT BEDSIDE. PATIENT ENDORSED IN STABLE CONDITION
[2018-10-06 07:55] LABS: BASOPHILS # (AUTO) 0.1 K/uL (0.00-0.22); BASOPHILS % (AUTO) 1.4 % (0.0-2.0); EOSINOPHILS # (AUTO) 0.5 K/uL (0-0.4); EOSINOPHILS % (AUTO) 7.4 % (0.0-4.0); HEMATOCRIT 24.4 % (36-52); HEMOGLOBIN 7.9 g/dL (12.0-18.0); LYMPHOCYTES # (AUTO) 1.6 K/uL (2.0-11.5); MEAN CORPUSCULAR HEMOGLOBIN 29 pg (27-31); MEAN CORPUSCULAR HGB CONC 33 g/dL (33-37); MEAN CORPUSCULAR VOLUME 88.4 fL (80-94); MONOCYTES % (AUTO) 14.4 % (1.7-9.3); NEUTROPHILS # (AUTO) 3.5 K/uL (1.8-7.7); NEUTROPHILS % (AUTO) 52.8 % (42.2-75.2); PLATELET COUNT (AUTO) 378 K/uL (140-450); RED BLOOD CELL COUNT(AUTO) 2.76 MIL/uL (4.20-6.10); RED CELL DISTRIBUTION WIDTH 16.4 % (11.6-13.7); WHITE BLOOD COUNT (AUTO) 6.7 K/uL (4.8-10.8)
[2018-10-06 08:00] VITALS: BP 116/61
[2018-10-06 08:00] LABS: MAGNESIUM 1.8 mg/dL (1.8-2.4); PHOSPHORUS 3.7 mg/dL (2.5-4.9)
[2018-10-06] MEDS: DULoxetine 30 MG CAPDR PO SCH (08:06)
--- NOTE | 2018-10-06 08:14 | NUR ---
PATIENT COMPLAINS OF SEVERE PAIN. DILAUDID GIVEN AT THIS TIME. PATIENT REFUSED CYMBALTA AT THIS TIME. WILL CONTINUE TO MONITOR.
[2018-10-06 08:19] LABS: ANION GAP 13.1 (8-16); CARBON DIOXIDE 25.6 mmol/L (21-32); CREATININE 1.6 mg/dL (0.7-1.3); POTASSIUM 3.7 mmol/L (3.5-5.1)
--- NOTE | 2018-10-06 10:00 | NUR ---
PATIENT COLOSTOMY LEAKING, COLOSTOMY BAG CLEANED AND CHANGED. PATIENT TOLERATED WELL. WILL CONTINUE TO MONITOR.
--- NOTE | 2018-10-06 12:23 | NUR ---
PATIENT COMPLAINS OF SEVERE PAIN AFTER TRYING TO TURN HIMSELF. DILAUDID GIVEN. WILL CONTINUE TO MONITOR.
--- NOTE | 2018-10-06 12:41 | NUR ---
Spoke to [facility] testing projects administrator, Monica So to follow-up on pt's acceptance. Sw was informed by Monica she's declining the referral due to "High Risk for Litigation" therefore he's been declined. Dain spoke to [facility] hospice case manager Nikolai Gibbs to update him about current events. Nikolai stated the difficult placement team is working on this case and will have Myranda follow-up with the hospital. sporting goods sales manager informed. Dasia Pederson, ACSW Ext [phone]
[2018-10-06] MEDS: MAG SULF 2000 MG/WATER PREMIX 50 ML IV PRN (14:26)
--- NOTE | 2018-10-06 14:35 | NUR ---
PATIENT COMPLAINS OF SEVERE PAIN. DILAUDID GIVEN AT THIS TIME. WILL CONTINUE TO MONITOR.
[2018-10-06 16:00] VITALS: BP 115/70
--- NOTE | 2018-10-06 16:50 | NUR ---
PATIENT LYING DOWN IN BED WATCHING VIDEOS ON HIS IPAD. COMPLAINS OF SEVERE PAIN. DILAUDID GIVEN AT THIS TIME. WILL CONTINUE TO MONITOR.
[2018-10-06] MEDS: NACL 0.9% 1,000 ML IV SCH (18:32)
--- NOTE | 2018-10-06 19:25 | NUR ---
RECIEVED PT AAOX4 , NO SIGNS OF DISTRESS NOTED AT THIS TIME , WITH PICC LINE -DOUBLE LUMEN - WITH ON GOING IVF INFUSING WELL AND TPN INFUSING WELL , WOUND CAN NOT FULLY ASSESS BECAUSE PT REFUSED TO REPOSITIONING AND FOR FULLY WOUND ASSESSMENT , COMPLAINING OF PAIN - WILL MEDICATE ORDERED , PLAN OF CARE DISCUSSED AND PT VERBALIZE UNDERSTANDING , ON SAFETY PRECAUTION PROTOCOL , CALL LIGHT WITHIN REACH - WILL CONT. TO MONITOR.
[2018-10-06] MEDS: DEXTROSE IV SCH ×4 (20:10)
[2018-10-06] MEDS: MULTIVITAMIN IV SCH ×4 (20:10)
[2018-10-06] MEDS: AMINO ACIDS 8.5% IV SCH ×4 (20:10)
[2018-10-06] MEDS: [UNRECOGNIZED DRUG - OTHER] IV SCH ×4 (20:10)
--- NOTE | 2018-10-06 22:00 | NUR ---
MADE ROUNDS - RESP .EVEN AND UNLABORED , C/O PAIN -WILL MEDICATE ORDERED , CALL LIGHT WITHIN REACH.
[2018-10-07] VITALS: BP 114/69
--- NOTE | 2018-10-07 | NUR ---
MADE ROUNDS RESP. EVEN AND UNLABORED , C/O PAIN - DILAUDID TIV JUST GIVEN - CALL LIGHT WITH REACH - WILL CONT. TO MONITOR.
[2018-10-07] MEDS: BLOOD GLUCOSE MONITORING 1 DEV DEV FS SCH ×5 (00:24→23:32)
--- NOTE | 2018-10-07 02:00 | NUR ---
MADE ROUNDS RESP. EVEN AND UNLABORED . C/O PAIN -WILL MEDICATE ORDERED - CALL LIGHT WITHIN REACH - WILL CONT. TO MONITOR.
[2018-10-07] MEDS: HYDROmorphone PFS 2 MG/ML SYR IVP PRN ×9 (02:13→23:26)
--- NOTE | 2018-10-07 06:46 | NUR ---
PT. REFUSED FOR WOUND ASSESSMENT , REFUSED CHANGE PICC DRESSING UNLESS THERE IS PAIN KILLER TIV LIKE DALAUDID PT 'S SAID .NO IV PAIN MED. AVAILABLE AT THIS TIME .PT REFUSED ORAL PAIN KILLER ORDERED.
--- NOTE | 2018-10-07 06:50 | NUR ---
PAGED DR GRESHAM FOR TIV PAIN KILLER BECAUSE PT REFUSED ORAL PAIN PILL - PT IS IN PAIN .WAITING FOR CALL BACK.
[2018-10-07 07:12] LABS: BASOPHILS # (AUTO) 0.1 K/uL (0.00-0.22); BASOPHILS % (AUTO) 1.2 % (0.0-2.0); EOSINOPHILS # (AUTO) 0.5 K/uL (0-0.4); EOSINOPHILS % (AUTO) 9.9 % (0.0-4.0); HEMATOCRIT 23.3 % (36-52); HEMOGLOBIN 7.7 g/dL (12.0-18.0); LYMPHOCYTES # (AUTO) 1.8 K/uL (2.0-11.5); MEAN CORPUSCULAR HEMOGLOBIN 29 pg (27-31); MEAN CORPUSCULAR HGB CONC 33 g/dL (33-37); MEAN CORPUSCULAR VOLUME 87.4 fL (80-94); MONOCYTES # (AUTO) 0.9 K/uL (0.8-1.0); MONOCYTES % (AUTO) 16.2 % (1.7-9.3); NEUTROPHILS # (AUTO) 2.2 K/uL (1.8-7.7); NEUTROPHILS % (AUTO) 40.7 % (42.2-75.2); PLATELET COUNT (AUTO) 385 K/uL (140-450); RED BLOOD CELL COUNT(AUTO) 2.66 MIL/uL (4.20-6.10); RED CELL DISTRIBUTION WIDTH 16.3 % (11.6-13.7); WHITE BLOOD COUNT (AUTO) 5.5 K/uL (4.8-10.8)
--- NOTE | 2018-10-07 07:22 | NUR ---
ENDORSED TO AM SHIFT FOR CONTINUITY OF CARE - STILL WAITING FOR CALLBACK FROM DR GRESHAM
--- NOTE | 2018-10-07 07:23 | NUR ---
PT RECEIVED FROM NIGHT NURSE MEKHI. PT IN BED. PT AAOX4. PT COMPLAINING OF PAIN. NIGHT NURSE STATED PT REFUSED PO PAIN MEDICATION AND AWAITING DR GREEN TO CALL BACK AND RENEW IVP DILAUDID ORDER. DOUBLE LUMEN PICC TO R UPPER ARM NS AT 48ML/HR AND TPN AT 100ML/HR. SITE ASYMPTOMATIC. NO SIGNS OF ACUTE DISTRESS AT THIS TIME. WILL CONTINUE TO ASSESS FOR CHANGES IN CONDITION.
[2018-10-07 07:47] LABS: MAGNESIUM 1.9 mg/dL (1.8-2.4); PHOSPHORUS 3.9 mg/dL (2.5-4.9)
[2018-10-07 07:58] LABS: ANION GAP 11.1 (8-16); CARBON DIOXIDE 27.8 mmol/L (21-32); CREATININE 1.3 mg/dL (0.7-1.3); POTASSIUM 3.9 mmol/L (3.5-5.1)
[2018-10-07 08:00] VITALS: BP 124/74
--- NOTE | 2018-10-07 08:00 | NUR ---
Pt crying in room. Immediately came in to assess. Pt supine in bed, crying, stating he is "in pain all over". Explained that assistant shift supervisor nurse had paged on-call MD to renew Dilaudid order & awaiting call back. Offered acetaminophen & tramadol for the meantime but pt refused, states he will wait for IVP Dilaudid order.
--- NOTE | 2018-10-07 08:11 | NUR ---
DR. GREEN PAGED IN TO GET RENEWAL FOR DILAUDID ORDER. WILL WAIT FOR CALL BACK BY SILVER PLATER PHYSICIAN.
--- NOTE | 2018-10-07 08:20 | NUR ---
DR. WISEMAN RETURNED CALL, ORDER FOR 2MG DILAUDID IVP Q2H PRN FOR SEVERE PAIN RENEWED.
[2018-10-07] MEDS: DULoxetine 30 MG CAPDR PO SCH (08:31)
--- NOTE | 2018-10-07 08:40 | NUR ---
ASSESSMENT CONSULTANT reports pt refused repositioning & hygiene care. Spoke to pt & offered skin/hygiene care. Pt refused stating he is "ok right now, maybe later." Explained benefits of routine ADL care, pt verbalized understanding.
[2018-10-07 09:39] LABS: ALBUMIN 1.7 g/dL (3.4-5.0); CHOL/HDL RATIO 4.3 (1-4.5)
--- NOTE | 2018-10-07 11:02 | NUR ---
Offered to reposition pt & change bed linens/gown, & to tidy up bedside table. Pt refused & just shakes his head no. Explained risks of infection, & benefits of routine hygiene/skin care. Pt cont to shake his head no. Pt in no distress at this time, respirations even & nonlabored, FLACC 0. Call light within reach.
--- NOTE | 2018-10-07 13:40 | NUR ---
PT GIVEN ORDERED DILAUDID FOR PAIN 09/18. PT RESPIRATIONS 20. WILL REASSESS PAIN PER PROTOCOL AND CONTINUE TO ASSESS FOR CHANGES IN CONDITION.
--- NOTE | 2018-10-07 15:00 | NUR ---
PT SLEEPING IN BED. BREATHING EVEN AND UNLABORED, RR 18. WILL CONTINUE TO ASSESS FOR CHANGES IN CONDITION.
[2018-10-07 16:00] VITALS: BP 125/71
--- NOTE | 2018-10-07 16:46 | NUR ---
PT RECEIVED ORDERED DILAUDID FOR PAIN 10/19. PT REFUSED CENTRAL DRESSING CHANGE AT THIS TIME, DESPITE EDUCATION. PT STATED WE COULD ASK AGAIN AFTER THE NEXT SCHEDULED DOSE OF DILAUDID. MAY HAVE TO ENDORSE DRESSING CHANGE TO MANUFACTURING PROJECT MANAGER. WILL ATTEMPT DRESSING CHANGE AT 1830.
--- NOTE | 2018-10-07 19:05 | NUR ---
ORDERED DILAUDID ADMINISTERED FOR PAIN 10/19. RESPIRATIONS 20. PT MOTHER AT BEDSIDE. NO SIGNS OF ACUTE DISTRESS AT THIS TIME. WILL ENDORSE PAIN REASSESSMENT TO CHIEF CLINICAL OFFICER.
[2018-10-07] MEDS: NACL 0.9% 1,000 ML IV SCH (19:06)
--- NOTE | 2018-10-07 19:15 | NUR ---
REPORT RECEIVED FROM AM NURSE AT BEDSIDE. PT IN STABLE CONDITION. AAOX4. INTRODUCED SELF TO PT. BOARD UPDATED. NO COMPLAINTS OF PAIN. ALREADY MEDICATED. NO SOB. AFEBRILE. IV SITE IS R UA PICC LINE DOUBLE LUMEN PATENT AND INTACT RUNNING NS@42ML/HR AND THE OTHER LUMEN RUNNING LIPIDS@100ML/HR PATENT AND INTACT. SKIN WARM, DRY, AND NOT INTACT DUE TO MULTIPLE WOUNDS. PT UNWILLING TO ALLOW US TO DO WOUND CARE. BED LOCKED IN LOW POSITION. CALL CONN WITHIN REACH. SAFETY PRECAUTION IN PLACE. ALL NEEDS MET AT THIS TIME.
[2018-10-07] MEDS: DEXTROSE IV SCH ×4 (19:59)
[2018-10-07] MEDS: [UNRECOGNIZED DRUG - OTHER] IV SCH ×4 (19:59)
[2018-10-07] MEDS: MULTIVITAMIN IV SCH ×4 (19:59)
[2018-10-07] MEDS: AMINO ACIDS 8.5% IV SCH ×4 (19:59)
--- NOTE | 2018-10-07 19:59 | NUR ---
LIPIDS HUNG AND RUNNING. PT TOLERATING WELL.
--- NOTE | 2018-10-07 21:25 | NUR ---
DILAUDID GIVEN FOR 9/10 GENERALIZED PAIN. PT TOLERATED WELL.
--- NOTE | 2018-10-07 23:26 | NUR ---
DILAUDID GIVEN FOR 10/10 GENERAL PAIN. PT TOLERATED WELL. BS 106. NO INSULIN COVERAGE NEEDED.
[2018-10-08] VITALS: BP 117/68
--- NOTE | 2018-10-08 01:05 | NUR ---
PT IN BED WATCHING TV. NO S/S OF DISTRESS NOTED. RESPIRATIONS EVEN, UNLABORED, AND WNL. WILL CONTINUE TO MONITOR.
[2018-10-08] MEDS: HYDROmorphone PFS 2 MG/ML SYR IVP PRN ×11 (01:52→23:56)
--- NOTE | 2018-10-08 01:52 | NUR ---
PT COMPLAINTS OF 10/10 GENERALIZED PAIN. DILAUDID GIVEN. PT TOLERATED WELL.
--- NOTE | 2018-10-08 03:48 | NUR ---
DILAUDID GIVEN FOR 10/10 GENERALIZED PAIN. PT TOLERATED WELL.
--- NOTE | 2018-10-08 05:51 | NUR ---
DILAUDID GIVEN FOR 10/10 GENERALIZED PAIN. PT TOLERATED WELL.
[2018-10-08] MEDS: BLOOD GLUCOSE MONITORING 1 DEV DEV FS SCH ×3 (06:56→17:37)
--- NOTE | 2018-10-08 06:56 | NUR ---
BS 98. NO INSULIN COVERAGE NEEDED. PT IN STABLE CONDITION.
--- NOTE | 2018-10-08 07:20 | NUR ---
Received report from pm nurse Migue. Pt resting in bed watching TV, verbally responsive, no signs of distress, FLACC 0. ROSEMARIE PICC intact with ongoing TPN @ 100ml/hr & NS @ 42ml/hr. Call light within reach.
[2018-10-08 07:51] LABS: BASOPHILS # (AUTO) 0.1 K/uL (0.00-0.22); EOSINOPHILS # (AUTO) 0.6 K/uL (0-0.4); EOSINOPHILS % (AUTO) 11.1 % (0.0-4.0); HEMATOCRIT 22.7 % (36-52); HEMOGLOBIN 7.7 g/dL (12.0-18.0); LYMPHOCYTES # (AUTO) 1.9 K/uL (2.0-11.5); LYMPHOCYTES % (AUTO) 34.9 % (20.5-51.1); MEAN CORPUSCULAR HEMOGLOBIN 30 pg (27-31); MEAN CORPUSCULAR HGB CONC 34 g/dL (33-37); MONOCYTES # (AUTO) 0.8 K/uL (0.8-1.0); MONOCYTES % (AUTO) 15.5 % (1.7-9.3); NEUTROPHILS % (AUTO) 37.5 % (42.2-75.2); PLATELET COUNT (AUTO) 370 K/uL (140-450); RED BLOOD CELL COUNT(AUTO) 2.58 MIL/uL (4.20-6.10); RED CELL DISTRIBUTION WIDTH 16.8 % (11.6-13.7); WHITE BLOOD COUNT (AUTO) 5.4 K/uL (4.8-10.8)
[2018-10-08 08:00] VITALS: BP 118/68
[2018-10-08] MEDS: DULoxetine 30 MG CAPDR PO SCH (08:03)
[2018-10-08 08:14] LABS: ALBUMIN 1.7 g/dL (3.4-5.0); ANION GAP 9.2 (8-16); CARBON DIOXIDE 29.3 mmol/L (21-32); CREATININE 1.2 mg/dL (0.7-1.3); POTASSIUM 4.5 mmol/L (3.5-5.1); TOTAL BILIRUBIN 0.1 mg/dL (0.0-1.0)
[2018-10-08 08:42] LABS: MAGNESIUM 1.9 mg/dL (1.8-2.4); PHOSPHORUS 4.2 mg/dL (2.5-4.9)
--- NOTE | 2018-10-08 10:00 | NUR ---
Offered to reposition pt & to check integrity of wound dressing & colostomy bag. Pt refused & states "i'm ok." Explained benefits of skin care & infection control, verbalized understanding. Pt in no distress, respirations even & nonlabored. ROSEMARIE PICC 2-lumen intact with ongoing NS @ 42ml/hr & TPN @ 100ml/hr. Call light within reach.
--- NOTE | 2018-10-08 11:33 | NUR ---
SPOKE WITH HAYLEE RN FROM [facility] [phone] REGARDING DIFFICULT PLACEMENT , DISCUSSED PATIENT CONDITION , MEDICATION , DRESSING CHANGE, AND DIET. PER HAYLEE RECOMMENDED PAIN MEDS CAN BE PO , EXPLAINED THAT TRAMADOL PO IS A BREAKTHROUGH MEDS BUT PT HAS BEEN DIFFICULT TO TAKE IT. PER HAYLEE WILL DISCUSS IT WITH THE MEDICAL TEAM AND CALL BACK. CM TO FOLLOW
--- NOTE | 2018-10-08 15:20 | NUR ---
ROSEMARIE PICC line dressing changed using aseptic technique. No signs of complications to ROSEMARIE. Pt molly tx well. Resumed TPN @ 100ml/hr & NS @ 42ml/hr. Call light within reach.
--- NOTE | 2018-10-08 15:52 | NUR ---
10/08/18 RD FOLLOW UP COMPLETED PLEASE REFER TO NUTRITION ASSESSMENT UNDER CARE ACTIVITY FOR ESTIMATED NUTRITIONAL NEEDS. RD RECOMMENDATIONS: 1. CONTINUE TPN: D15%, AA 4.25% AT 100 ML/HR AND LIPIDS 10% (240 ML) -THIS WILL PROVIDE PATIENT WITH 1872 KCAL, 102 GM OF PROTEIN 2. CONTINUE BLAND/SOFT DIET 3. CONTINUE RODRIGUEZ BID 4. RD WILL FOLLOW UP 2-3 DAYS, HIGH RISK ALEXEI JOHNSTON RD
[2018-10-08 16:00] VITALS: BP 121/63
--- NOTE | 2018-10-08 16:00 | NUR ---
Pt's mother arrived to visit pt. Pt resting in bed, no c/o discomfort, respirations even & nonlabored, no signs of distress. ROSEMARIE PICC line intact with ongoing TPN @ 100ml/hr, & NS @ 42ml/hr. Call light within reach.
[2018-10-08] MEDS: NACL 0.9% 1,000 ML IV SCH (17:38)
--- NOTE | 2018-10-08 19:09 | NUR ---
Report given to nurse Nafisa.
--- NOTE | 2018-10-08 19:10 | NUR ---
RECEIVED REPORT FROM BEVERLEY CAPPS DAYSHIFT NURSE AT BEDSIDE, ALL CONTACT PRECAUTIONS IN PLACE AND PT IN STABLE CONDITION. NS RUNNING AT 42MLS/HR. TPN RUNNING AT 10MLS/HR. PT ON WOUND BED, HE HAS C/O OF 8/10 PAIN. PT ASSURED THAT HIS DILAUDID IS DUE IN 1/2HR AND PT VERBALIZED UNDERSTANDING.
--- NOTE | 2018-10-08 19:40 | NUR ---
PT GIVEN IVP DILAUDID FOR 8/10 PAIN. TPN REPLACE WELL TPN TUBING AND IS RUNNING AT 100MLS/HR. PT REFUSES TO BE TURNED, HE REFUSES RN TO CHECK OUT COLOSTOMY BAG, WHICH HE SAID WAS RECENTLY EMPTIED. PT V/S FOLLOWS T 98.0 P 107 R 18 B/P 112/69 02 99% ON ROOM AIR. ALL CONTACT PRECAUTIONS IN PLACE.
[2018-10-08] MEDS: [UNRECOGNIZED DRUG - OTHER] IV SCH ×4 (20:53)
[2018-10-08] MEDS: AMINO ACIDS 8.5% IV SCH ×4 (20:53)
[2018-10-08] MEDS: MULTIVITAMIN IV SCH ×4 (20:53)
[2018-10-08] MEDS: DEXTROSE IV SCH ×4 (20:53)
--- NOTE | 2018-10-08 21:45 | NUR ---
PT C/O OF 09/18 PAIN GIVEN IVP DILAUDID ORDERED. WILL MONITOR FOR PAIN RELIEF ALL REQUESTED NEEDS ATTENDED BY STAFF. CALL CONN IN REACH AND ALL CONTACT PRECAUTIONS IN PLACE.
[2018-10-09] VITALS: BP 115/62
--- NOTE | 2018-10-09 | NUR ---
PT IN BED C/O 8/10 PAIN GIVEN IVP DILAUDID FOR SEVERE PAIN. V/S FOLLOWS T 97.3 P 95 R 18 B/P 115/62 02 100% ON ROOM AIR. PT ON WOUND BED AND ALL CONTACT PRECAUTIONS IN PLACE. PT CONTINUES TO REFUSE TO BE TURNED OR TO CHECK COLOSTOMY BAG, ECT. FINGERSTICK IS 90 NO COVERAGE NEEDED. NS AND TPN RUNNING ORDERED.
[2018-10-09] MEDS: BLOOD GLUCOSE MONITORING 1 DEV DEV FS SCH ×4 (00:09→18:22)
[2018-10-09] MEDS: HYDROmorphone PFS 2 MG/ML SYR IVP PRN ×9 (02:17→21:07)
--- NOTE | 2018-10-09 02:31 | NUR ---
PT C/O 8 PAIN AND IS REQUESTING PRN DILAUDID. PT GIVEN IVP DILAUDID ORDERED.
--- NOTE | 2018-10-09 06:43 | NUR ---
PT FINGERSTICK WAS 63 NO COVRAGE NEEDED. PT GIVEN JUICE AND RETAKE OF F/S IS 73.
--- NOTE | 2018-10-09 07:30 | NUR ---
POC ENDORSED TO CIRA RN DAYSHIFT NURSE FOR CONTINUITY OF CARE., PT IN STABLE CONDITION.
--- NOTE | 2018-10-09 07:31 | NUR ---
RECEIVED REPORT FROM ASSISTANT MANAGER TRAINEE NURSE AT BEDSIDE FOR CONTINUITY OF CARE, ALL CONTACT PRECAUTIONS IN PLACE AND PT IN STABLE CONDITION, REQUESTING FOR PAIN MEDICATION, C/O 11/18 PAIN. INFORMED HIM WILL ASSESS AND MEDICATED AFTER SHIFT CHANGE. HE VERBALIZED UNDERSTANDING. NS RUNNING AT 42MLS/HR, TPN RUNNING ORDERED THROUGH PICC LINE, DRESSING DRY INTACT, AND PATENT. UPDATED BOARD. PT ON WOUND BED, SAFETY AND CONTACT PRECAUTIONS IN PLACE, CALL LIGHT WITHIN REACH, WILL CONTINUE TO MONITOR PATIENT.
--- NOTE | 2018-10-09 07:45 | NUR ---
PATIENT MEDICATED FOR 10/10 PAIN WITH PRN MEDICATION. NO COMPLAINTS AT THIS TIME. PATIENT AWARE OF NEXT SCHEDULED MED. WILL CONTINUE TO MONITOR PATIENT.
[2018-10-09 08:00] VITALS: BP 122/79
[2018-10-09 08:00] LABS: ANION GAP 10.9 (8-16); CARBON DIOXIDE 29.4 mmol/L (21-32); CREATININE 1.2 mg/dL (0.7-1.3); POTASSIUM 4.3 mmol/L (3.5-5.1)
[2018-10-09 08:03] LABS: MAGNESIUM 1.7 mg/dL (1.8-2.4); PHOSPHORUS 4.9 mg/dL (2.5-4.9)
[2018-10-09] MEDS: DULoxetine 30 MG CAPDR PO SCH (09:45)
--- NOTE | 2018-10-09 09:45 | NUR ---
PATIENT MEDICATED FOR PAIN WITH PRN MEDICATION. NO COMPLAINTS AT THIS TIME. PATIENT AWARE OF NEXT SCHEDULED MED. WILL CONTINUE TO MONITOR PATIENT.
--- NOTE | 2018-10-09 12:22 | NUR ---
PATIENT MEDICATED FOR PAIN WITH PRN MEDICATION. NO COMPLAINTS AT THIS TIME. PATIENT AWARE OF NEXT SCHEDULED MED. WILL CONTINUE TO MONITOR PATIENT.
[2018-10-09] MEDS: NACL 0.9% 1,000 ML IV SCH (12:27)
[2018-10-09] MEDS: MAG SULF 2000 MG/WATER PREMIX 50 ML IV PRN (12:32)
--- NOTE | 2018-10-09 12:33 | NUR ---
BLOOD SUGAR 78, NO COVERAGE NEEDED. NO COMPLAINTS AT THIS TIME. SAFETY AND ISOLATION PRECAUTIONS IN PLACE, CALL LIGHT WITHIN REACH, WILL CONTINUE TO MONITOR PATIENT.
--- NOTE | 2018-10-09 14:47 | NUR ---
PATIENT MEDICATED FOR C/O PAIN WITH PRN MEDICATION. NO COMPLAINTS AT THIS TIME. PATIENT AWARE OF NEXT SCHEDULED MED. WILL CONTINUE TO MONITOR PATIENT.
[2018-10-09 16:00] VITALS: BP 103/65
--- NOTE | 2018-10-09 16:18 | NUR ---
PAGED DR GARCIA TO RENEW PATIENT'S MEDICATIONS. DR GARCIA CALLED BACK, NEW ORDERS IN. WILL CONTINUE TO MONITOR PATIENT.
[2018-10-09] MEDS ORDERED: DEXTROSE 50% 50 ML SYR IVP PRN (16:20)
[2018-10-09] MEDS ORDERED: TPN PER PHARMACY MC PRN (16:20)
[2018-10-09] MEDS ORDERED: INSULIN LISPRO SLIDING SCALE 100 UNITS/ML VIAL SUBQ PRN (16:20)
--- NOTE | 2018-10-09 16:48 | NUR ---
PATIENT MEDICATED FOR C/O PAIN WITH PRN MEDICATION. NO COMPLAINTS AT THIS TIME. PATIENT AWARE OF NEXT SCHEDULED MED. WILL CONTINUE TO MONITOR PATIENT.
--- NOTE | 2018-10-09 18:22 | NUR ---
BLOOD SUGAR 92, NO COVERAGE NEEDED. NO COMPLAINTS AT THIS TIME. SAFETY AND ISOLATION PRECAUTIONS IN PLACE, CALL LIGHT WITHIN REACH, WILL CONTINUE TO MONITOR PATIENT.
--- NOTE | 2018-10-09 18:48 | NUR ---
PATIENT MEDICATED FOR C/O PAIN WITH PRN MEDICATION. NO COMPLAINTS AT THIS TIME. PATIENT AWARE OF NEXT SCHEDULED MED. PATIENT REFUSED TO HAVE COLOSTOMY EMPTIED. WILL CONTINUE TO MONITOR PATIENT.
--- NOTE | 2018-10-09 19:05 | NUR ---
RECEIVED REPORT FROM CIRA RN DAYSHIFT NURSE AT BEDSIDE FOR CONTINUITY OF CARE, PT IN STABLE CONDITION.
--- NOTE | 2018-10-09 19:05 | NUR ---
REPORT GIVEN TO HEEL TURNER NURSE AT BEDSIDE FOR CONTINUITY OF CARE. PATIENT IN STABLE CONDITION, ENDORSED PAIN REASSESSMENT TO HEEL TURNER NURSE.
--- NOTE | 2018-10-09 20:00 | NUR ---
PT IN BED ALL FALLS AND CONTACT PRECAUTIONS IN PLACE. PICC LINE ON R UPPER ARM INTACT AND FLUSHED PATENT. TPN REPLACED AND IS RUNNING 100MLS/HR ORDERED. PT ALSO HAS N/S RUNNING AT 42MLS/HR. PT REFUSES TO TURN AND WHEN ASKED SAID HIS COLOSTOMY BAG IS EMPTY. V/S FOLLOWS T 97.3 P 95 R 18 B/P 98/56 02 100% ON ROOM AIR. ALL REQUESTED NEEDS ATTENDED.
--- NOTE | 2018-10-09 21:10 | NUR ---
PT FINGERSTICK IS 86 NO HUMALOG COVERAGE NEEDED. PT C/O SEVERE PAIN IN LEGS 8/10 GIVEN DILAUDID IVP/PRN FOR SEVERE PAIN. WILL MONITOR FOR EFFECT.
[2018-10-09] MEDS: [UNRECOGNIZED DRUG - OTHER] IV SCH ×4 (23:49)
[2018-10-09] MEDS: MULTIVITAMIN IV SCH ×4 (23:49)
[2018-10-09] MEDS: AMINO ACIDS 8.5% IV SCH ×4 (23:49)
[2018-10-09] MEDS: DEXTROSE IV SCH ×4 (23:49)
[2018-10-10] VITALS: BP 100/57
[2018-10-10] MEDS: BLOOD GLUCOSE MONITORING 1 DEV DEV FS SCH ×4 (00:04→17:50)
[2018-10-10] MEDS: HYDROmorphone PFS 2 MG/ML SYR IVP PRN ×11 (00:05→22:15)
--- NOTE | 2018-10-10 00:10 | NUR ---
PT ON WOUND BED,MIDNIGHT V/S FOLLOWS T 98.0 P 100 R 18 B/P 100/57 02 98%. PT C/O SEVERE PAIN 09/18 GIVEN IVP DILAUDID ORDERED. WILL MONITOR FOR EFFECT. PT CONTINUES TO REFUSE TO BE TURNED,. ALL REQUESTED NEEDS ATTENDED. ALL FALLS AND CONTACT PRECAUTIONS IN PLACE. F/S86 NO COVERAGE OF HUMALOG NEEDED.
--- NOTE | 2018-10-10 02:40 | NUR ---
PT C/O SEVERE PAIN 8/10 PAIN IN LOWER LEGS. PT GIVEN PRN/IVP DILAUDID WILL MONITOR FOR PAIN RELIEF.ALL FALLS AND CONTACT PRECAUTIONS IN PLACE.
--- NOTE | 2018-10-10 05:00 | NUR ---
PT C/O OF SEVERE PAIN IN LOWER LEGS ,GIVEN IVP DILAUDID. ALL REQUESTED NEEDS ATTENDED. PT CONTINUES TO DECLINE TO BE TURNED.
--- NOTE | 2018-10-10 07:20 | NUR ---
POC ENDORSED TO CIRA RN DAYSHIFT NURSE AT BEDSIDE FOR CONTINUITY OF CARE PT IN STABLE CONDITION,
--- NOTE | 2018-10-10 07:21 | NUR ---
RECEIVED REPORT FROM EDI DEVELOPER NURSE AT BEDSIDE FOR CONTINUITY OF CARE, ALL CONTACT PRECAUTIONS IN PLACE. PT IN STABLE CONDITION, PATIENT MEDICATION FOR PAIN AT 0650. RESPIRATIONS EVEN AND UNLABORED ON ROOM AIR. NS RUNNING AT 42MLS/HR AND TPN RUNNING ORDERED THROUGH PICC LINE, DRESSING DRY INTACT, AND PATENT. UPDATED BOARD. PT ON WOUND BED, SAFETY AND CONTACT PRECAUTIONS IN PLACE, CALL LIGHT WITHIN REACH, WILL CONTINUE TO MONITOR PATIENT.
[2018-10-10 08:00] VITALS: BP 121/61
--- NOTE | 2018-10-10 08:50 | NUR ---
PATIENT MEDICATED FOR C/O PAIN WITH PRN MEDICATION. NO COMPLAINTS AT THIS TIME. PATIENT AWARE OF NEXT SCHEDULED MED. WILL CONTINUE TO MONITOR PATIENT. Addendum: 10/10/18 at 1337 by Rachid Whitfield RN AND ALSO MEDICATION WITH SCHEDULED MEDICATION.
[2018-10-10] MEDS: DULoxetine 30 MG CAPDR PO SCH (08:51)
[2018-10-10] MEDS: NACL 0.9% 1,000 ML IV SCH (09:30)
--- NOTE | 2018-10-10 11:00 | NUR ---
PATIENT MEDICATED FOR C/O PAIN WITH PRN MEDICATION. NO COMPLAINTS AT THIS TIME. PATIENT AWARE OF NEXT SCHEDULED MED. WILL CONTINUE TO MONITOR PATIENT.
[2018-10-10 12:36] LABS: BASOPHILS # (AUTO) 0.1 K/uL (0.00-0.22); BASOPHILS % (AUTO) 1.1 % (0.0-2.0); EOSINOPHILS # (AUTO) 0.5 K/uL (0-0.4); EOSINOPHILS % (AUTO) 8.9 % (0.0-4.0); HEMATOCRIT 22.2 % (36-52); HEMOGLOBIN 7.3 g/dL (12.0-18.0); LYMPHOCYTES # (AUTO) 1.9 K/uL (2.0-11.5); MEAN CORPUSCULAR HEMOGLOBIN 29 pg (27-31); MEAN CORPUSCULAR HGB CONC 33 g/dL (33-37); MEAN CORPUSCULAR VOLUME 88.7 fL (80-94); MONOCYTES # (AUTO) 0.7 K/uL (0.8-1.0); MONOCYTES % (AUTO) 12.1 % (1.7-9.3); NEUTROPHILS # (AUTO) 2.5 K/uL (1.8-7.7); NEUTROPHILS % (AUTO) 44.9 % (42.2-75.2); PLATELET COUNT (AUTO) 387 K/uL (140-450); RED BLOOD CELL COUNT(AUTO) 2.51 MIL/uL (4.20-6.10); RED CELL DISTRIBUTION WIDTH 16.8 % (11.6-13.7); WHITE BLOOD COUNT (AUTO) 5.6 K/uL (4.8-10.8)
[2018-10-10 12:57] LABS: ALBUMIN 1.8 g/dL (3.4-5.0); ANION GAP 8.7 (8-16); CARBON DIOXIDE 29.4 mmol/L (21-32); CREATININE 1.2 mg/dL (0.7-1.3); MAGNESIUM 1.9 mg/dL (1.8-2.4); PHOSPHORUS 4.8 mg/dL (2.5-4.9); POTASSIUM 4.1 mmol/L (3.5-5.1); TOTAL BILIRUBIN 0.1 mg/dL (0.0-1.0)
[2018-10-10] MEDS: ONDANSETRON 4 MG/2 ML VIAL IVP PRN (13:00)
--- NOTE | 2018-10-10 13:00 | NUR ---
PATIENT VOMITED, PRN ZOFRAN GIVEN. PATIENT C/O PAIN 8/10, PRN PAIN MEDICATION GIVEN INDICATED. PATIENT TOLERATED MEDICATIONS WELL. SAFETY AND ISOLATION PRECAUTIONS IN PLACE, CALL LIGHT WITHIN REACH, WILL CONTINUE TO MONITOR PATIENT.
--- NOTE | 2018-10-10 14:09 | NUR ---
(10/10/18) RD FOLLOW UP COMPLETED PLEASE REFER TO NUTRITION PROGRESS NOTE UNDER CARE ACTIVITY FOR ESTIMATED NUTRITION NEEDS. RD RECOMMENDATIONS: 1. RECOMMEND INCREASE TPN TO D20%, AA 4.25% AT 100 ML/HR AND LIPIDS 10% (240 ML) -THIS WILL PROVIDE PATIENT WITH 2376 KCAL, 102 GM OF PROTEIN, GIR 5.73. 2. CONTINUE BLAND/SOFT DIET TOLERATED. 3. CONTINUE RODRIGUEZ BID. 4. RD WILL FOLLOW UP 2-3 DAYS, HIGH RISK ANGELA COLE, , RDN
--- NOTE | 2018-10-10 15:46 | NUR ---
MAG RIDER GIVEN PER DOCTOR'S PROTOCOL. PATIENT AWARE AND TOLERATING IT WELL. NO COMPLAINTS AT THIS TIME. PATIENT MEDICATED FOR PAIN AT 1506. SAFETY AND ISOLATION PRECAUTION IN PLACE, CALL LIGHT WITHIN REACH, WILL CONTINUE TO MONITOR PATIENT.
[2018-10-10] MEDS: MAG SULF 2000 MG/WATER PREMIX 50 ML IV PRN (15:49)
[2018-10-10 15:54] VITALS: BP 102/57
--- NOTE | 2018-10-10 17:50 | NUR ---
PATIENT MEDICATED FOR 9/10 PAIN D/T CHRONIC WOUNDS. PATIENT TOLERATED IT WELL. BLOOD SUGAR 92, NO COVERAGE NEEDED. SAFETY AND ISOLATION PRECAUTION IN PLACE, CALL LIGHT WITHIN REACH, WILL CONTINUE TO MONITOR PATIENT.
[2018-10-10] MEDS ORDERED: POLYETHYLENE GLYCOL 17 GM/PKT PO PRN (18:20)
--- NOTE | 2018-10-10 18:21 | NUR ---
PAGED DR. GREEN FOR STOOL SOFTENER FOR PATIENT. PATIENT'S COLOSTOMY BAG HAS FORMED STOOL, NO LIQUID. DR. DOBSON RESILIENT TILE INSTALLER. DR. DOBSON CALLED BACK. ORDERED COLACE 100 MG BID P.O, AND MIRALAX 17 MG P.O BID PRN. ORDERED NOTED AND WILL BE CARRIED OUT.
--- NOTE | 2018-10-10 19:24 | NUR ---
REPORT GIVEN TO DATABASE ARCHITECT NURSE ASHLEY. PATIENT IN STABLE CONDITION.
--- NOTE | 2018-10-10 19:25 | NUR ---
RECEIVED BEDSIDE REPORT FROM AM SHIFT RN CIRA, FOR PT'S CONTINUITY OF CARE. PT IS AWAKE, ALERT, ORIENTED X 4, IS ON ROOM AIR, HAS RIGHT UPPER ARM PICC LINE INFUSING WITH TPN AT 100 ML/HR AND NS AT 42ML/HR, C/O INCREASING PAIN. WILL MEDICATE PT, EXPLAINED TO PT THE BRICKLAYER'S ASSISTANT ROUTINE, PT VERBALIZED UNDERSTANDING. PT IS BEDBOUND, DRESSING ON BILATERAL LOWER EXTREMITY INTACT, REFUSED TO BE TURNED. BED IS ON LOW POSITION, SIDE RAILS ARE UP, AND CALL LIGHT IS WITHIN REACH. WILL MONITOR PT THROUGHOUT SHIFT.
[2018-10-10] MEDS: MULTIVITAMIN IV SCH ×4 (19:56)
[2018-10-10] MEDS: AMINO ACIDS 8.5% IV SCH ×4 (19:56)
[2018-10-10] MEDS: [UNRECOGNIZED DRUG - OTHER] IV SCH ×4 (19:56)
[2018-10-10] MEDS: DEXTROSE IV SCH ×4 (19:56)
--- NOTE | 2018-10-10 20:15 | NUR ---
PT C/O PAIN 09/18. ADMINISTERED TPN, AND IV PUSH PAIN MEDICATION ORDERED. PT TOLERATED THEM WELL. PT REFUSED MIRALAX AT THIS TIME. WILL ASSESS STOOL IN COLOSTOMY BAG. WILL CONTINUE TO MONITOR PT.
--- NOTE | 2018-10-10 22:15 | NUR ---
PT C/O GEN PAIN 09/18. ADMINISTERED IV PUSH PRN PAIN MEDICATION ORDERED. PT TOLERATED IT WELL. WILL CONTINUE TO MONITOR PT.
[2018-10-11] VITALS: BP 104/55
--- NOTE | 2018-10-11 00:30 | NUR ---
VITAL SIGNS AND BLOOD SUGAR CHECKED AND CHARTED. PT C/O PAIN. ADMINISTERED IV PUSH PAIN MEDICATION ORDERED. PT TOLERATED IT WELL. WILL CONTINUE TO MONITOR PT.
[2018-10-11] MEDS: HYDROmorphone PFS 2 MG/ML SYR IVP PRN ×10 (00:36→23:21)
[2018-10-11] MEDS: BLOOD GLUCOSE MONITORING 1 DEV DEV FS SCH ×5 (00:42→23:33)
--- NOTE | 2018-10-11 02:37 | NUR ---
PT C/O PAIN 09/18. ADMINISTERED IV PUSH PAIN MEDICATION ORDERED. WILL CONTINUE TO MONITOR PT.
--- NOTE | 2018-10-11 05:00 | NUR ---
PT C/O PAIN 09/18, PAIN MEDICATION GIVEN AT 0237 ONLY REDUCED TO TOLERABLE LEVEL OF 5/10. ADMINISTERED IV PUSH PAIN MEDICATION ORDERED. WILL CONTINUE TO MONITOR PT.
--- NOTE | 2018-10-11 05:12 | NUR ---
BLOOD GLUCOSE CHECKED AND CHARTED - 89. ADVISED PT TO EAT SNACKS AND DRINK MORE GATORADE (AT BEDSIDE). PT VERBALIZED UNDERSTANDING.
--- NOTE | 2018-10-11 07:24 | NUR ---
RECEIVED ENDORSEMENT FROM AUTO BODY REPAIRMAN NURSE. PATIENT IS AAOX4, GREENLANDIC SPEAKING. RESPIRATIONS ARE EVEN AND UNLABORED ON ROOM AIR. PICC LINE INTACT, PATENT AND INFUSING IVF AND TPN. PLAN OF CARE WAS REVIEWED WITH PATIENT,PATIENT VERBALIZED UNDERSTANDING. SAFETY MEASURES IN PLACE, CALL LIGHT WITHIN REACH.
[2018-10-11 08:00] VITALS: BP 125/73
[2018-10-11] MEDS: DOCUSATE SODIUM 100 MG GELCAP PO SCH (08:02)
[2018-10-11] MEDS: DULoxetine 30 MG CAPDR PO SCH (08:02)
--- NOTE | 2018-10-11 08:02 | NUR ---
ADMINISTERED SCHEDULED MEDICATIONS. PATIENT TOLERATED WELL. NO OTHER NEEDS AT THIS TIME.
[2018-10-11 10:23] LABS: EOSINOPHILS # (AUTO) 0.4 K/uL (0-0.4); LYMPHOCYTES # (AUTO) 1.5 K/uL (2.0-11.5)
--- NOTE | 2018-10-11 10:26 | NUR ---
PATIENT RESTING IN BED WATCHING TV. NO OTHER NEEDS AT THIS TIME.
[2018-10-11 10:27] LABS: BASOPHILS % (AUTO) 0.8 % (0.0-2.0); EOSINOPHILS % (AUTO) 7.1 % (0.0-4.0); HEMATOCRIT 23.6 % (36-52); HEMOGLOBIN 7.8 g/dL (12.0-18.0); LYMPHOCYTES % (AUTO) 26.2 % (20.5-51.1); MEAN CORPUSCULAR HEMOGLOBIN 29 pg (27-31); MEAN CORPUSCULAR HGB CONC 33 g/dL (33-37); MEAN CORPUSCULAR VOLUME 88.6 fL (80-94); MONOCYTES # (AUTO) 0.6 K/uL (0.8-1.0); NEUTROPHILS # (AUTO) 3.1 K/uL (1.8-7.7); NEUTROPHILS % (AUTO) 54.9 % (42.2-75.2); PLATELET COUNT (AUTO) 420 K/uL (140-450); RED BLOOD CELL COUNT(AUTO) 2.66 MIL/uL (4.20-6.10); RED CELL DISTRIBUTION WIDTH 16.9 % (11.6-13.7); WHITE BLOOD COUNT (AUTO) 5.7 K/uL (4.8-10.8)
[2018-10-11 10:55] LABS: MAGNESIUM 2.2 mg/dL (1.8-2.4); PHOSPHORUS 4.6 mg/dL (2.5-4.9)
[2018-10-11 10:56] LABS: ANION GAP 9.3 (8-16); CARBON DIOXIDE 30.8 mmol/L (21-32); CREATININE 1.3 mg/dL (0.7-1.3); POTASSIUM 4.1 mmol/L (3.5-5.1); TOTAL BILIRUBIN 0.1 mg/dL (0.0-1.0)
[2018-10-11 10:57] LABS: ALBUMIN 1.8 g/dL (3.4-5.0)
--- NOTE | 2018-10-11 12:18 | NUR ---
PATIENT RESTING IN BED WATCHING TV. NO OTHER NEEDS AT THIS TIME.
[2018-10-11] MEDS: NACL 0.9% 1,000 ML IV SCH (14:49)
--- NOTE | 2018-10-11 14:59 | NUR ---
PATIENT RESTING IN BED. NO OTHER NEEDS AT THIS TIME.
[2018-10-11 16:00] VITALS: BP 112/52
--- NOTE | 2018-10-11 16:16 | NUR ---
ENDORSED TO LAURA CAPPS FOR CONTINUITY OF CARE. PATIENT IS STABLE AT THIS TIME.
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
--- NOTE | 2018-10-11 17:30 | NUR ---
NOTED COLOSTOMY BAG IS EMPTY, PT IS AWARE TO NOTIFY NURSE WHEN HE HAS BM.
--- NOTE | 2018-10-11 18:13 | NUR ---
PT IS ASLEEP, NO C/O PAIN AT THIS TIME. RESPIRATIONS EVEN AND UNLABORED ON RA.
--- NOTE | 2018-10-11 19:10 | NUR ---
ENDORSED PT LOCOMOTIVE ENGINEER DIESEL NURSE. PT HAS NO SIGNS OF DISTRESS AT THIS TIME.
--- NOTE | 2018-10-11 19:15 | NUR ---
RECEIVED BEDSIDE REPORT FROM AM SHIFT RN LAURA, FOR PT'S CONTINUITY OF CARE. PT IS AWAKE, ALERT, ORIENTED X 4, WATCHING TV. PT IS ON ROOM AIR, HAS RIGHT UPPER ARM DOUBLE LUMEN PICC LINE INFUSING WITH TPN AND NS AT 40 ML/HR, HAS COLOSTOMY ON LEFT ABDOMEN AREA, BLE DRESSINGS ARE DRY AND INTACT. BED IS ON LOW POSITION, SIDE RAILS ARE UP AND CALL LIGHT IS WITHIN REACH. PT FAMILIAR WITH CYBER DEFENSE ANALYST ROUTINE. WILL MONITOR PT THROUGHOUT SHIFT.
--- NOTE | 2018-10-11 20:58 | NUR ---
PT C/O PAIN. REQUESTED FOR PAIN MEDICATION. ADMINISTERED IV PUSH PRN MEDICATION ORDERED. WILL CONTINUE TO MONITOR PT.
[2018-10-11] MEDS: [UNRECOGNIZED DRUG - OTHER] IV SCH ×4 (21:02)
[2018-10-11] MEDS: AMINO ACIDS 8.5% IV SCH ×4 (21:02)
[2018-10-11] MEDS: MULTIVITAMIN IV SCH ×4 (21:02)
[2018-10-11] MEDS: DEXTROSE IV SCH ×4 (21:02)
--- NOTE | 2018-10-11 23:20 | NUR ---
C/O PAIN. REQUESTED FOR PAIN MEDICATION. ADMINISTERED IV PUSH PRN PAIN MEDICATION ORDERED.WILL CONTINUE TO MONITOR PT.
--- NOTE | 2018-10-11 23:45 | NUR ---
VS AND BLOOD GLUCOSE CHECKED AND CHARTED. PT TOLERATED THEM WELL. PT REQUESTED FOR GLASS OF ICE.
[2018-10-12] VITALS: BP 115/60
[2018-10-12] MEDS: HYDROmorphone PFS 2 MG/ML SYR IVP PRN ×10 (01:29→22:19)
--- NOTE | 2018-10-12 01:30 | NUR ---
PT C/O PAIN 8/. ADMINISTERED IV PUSH PRN PAIN MEDICATION ORDERED. PT TOLERATED IT WELL. WILL CONTINUE TO MONITOR PT.
--- NOTE | 2018-10-12 03:35 | NUR ---
PT CALLED AND REQUESTED FOR PAIN MEDICATION. ADMINISTERED IV PUSH PAIN MEDICATION ORDERED. WILL CONTINUE TO MONITOR PT.
--- NOTE | 2018-10-12 05:44 | NUR ---
PT C/O PAIN, REQUESTED FOR PAIN MEDS. ADMINISTERED PRN IV PUSH PAIN MEDICATION ORDERED. PT TOLERATED IT WELL. BLOOD GLUCOSE CHECKED AND CHARTED. RESULT IS 85, ENCOURAGED PT TO DRINK MORE GATORADE, AND EAT SMALL SNACK. WILL ENDORSE PT TO AM SHIFT RN FOR CONTINUITY OF CARE.
[2018-10-12] MEDS: BLOOD GLUCOSE MONITORING 1 DEV DEV FS SCH ×3 (05:54→18:51)
--- NOTE | 2018-10-12 07:15 | NUR ---
RECEIVED REPORT FROM RADIO INTELLIGENCE OPERATOR RNASHLEY. PATIENT RESTING IN BED, AWAKE, C/O PAIN IN LOWER EXTREMITIES, WILL MEDICATE PRN SCHEDULE ALLOWS. PATIENT BED IS LOW, CALL LIGHT IS IN REACH. NO DISTRESS NOTED ON RA.
[2018-10-12 08:00] VITALS: BP 131/76
[2018-10-12] MEDS: DOCUSATE SODIUM 100 MG GELCAP PO SCH (08:00)
[2018-10-12] MEDS: DULoxetine 30 MG CAPDR PO SCH (08:00)
--- NOTE | 2018-10-12 08:07 | NUR ---
ADMINISTERED SCHEDULED MEDICATIONS AND 2MG IV DILAUDID FOR 9/10 BILATERAL LOWER EXTREMITY PAIN RELATED TO CHRONIC WOUNDS. PATIENT TOLERATED MEDS WELL. VITALS ARE STABLE. PATIENT HAS SIGNIFICANT DRAINAGE ON DRESSING OF LOWER EXTREMITIES. PATIENT SCHEDULED FOR DEBRIDEMENT AND DRESSING CHANGE IN OR TODAY. PATIENT WILL BE NPO FROM NOW UNTIL PROCEDURE. ASKED PATIENT IF HE WOULD ALLOW ME TO REPOSITION HIM AT ANY TIME TODAY, PATIENT SHOOK HIS HEAD "NO". EDUCATED PATIENT ON IMPORTANCE OF REPOSITIONING. WILL OFFER AGAIN. BED IS LOW, CALL LIGHT IN REACH. WILL CONTINUE TO MONITOR.
--- NOTE | 2018-10-12 09:00 | NUR ---
CALLED [facility] SPOKE WITH KISHORE PERALTA , REGARDING THE DISCHARGE PLANNING, PER KISHORE WILL DISCUSS WITH HAYLEE CAPPS AND WILL CALL ME BACK
[2018-10-12 09:55] LABS: BASOPHILS % (AUTO) 0.7 % (0.0-2.0); EOSINOPHILS # (AUTO) 0.4 K/uL (0-0.4); EOSINOPHILS % (AUTO) 5.5 % (0.0-4.0); HEMATOCRIT 23.2 % (36-52); HEMOGLOBIN 7.7 g/dL (12.0-18.0); LYMPHOCYTES # (AUTO) 1.8 K/uL (2.0-11.5); LYMPHOCYTES % (AUTO) 28.8 % (20.5-51.1); MEAN CORPUSCULAR HEMOGLOBIN 30 pg (27-31); MEAN CORPUSCULAR HGB CONC 33 g/dL (33-37); MEAN CORPUSCULAR VOLUME 89.2 fL (80-94); MONOCYTES # (AUTO) 0.8 K/uL (0.8-1.0); MONOCYTES % (AUTO) 12.1 % (1.7-9.3); NEUTROPHILS # (AUTO) 3.4 K/uL (1.8-7.7); NEUTROPHILS % (AUTO) 52.9 % (42.2-75.2); PLATELET COUNT (AUTO) 392 K/uL (140-450); RED CELL DISTRIBUTION WIDTH 16.9 % (11.6-13.7); WHITE BLOOD COUNT (AUTO) 6.3 K/uL (4.8-10.8)
--- NOTE | 2018-10-12 09:56 | NUR ---
ADMINISTERED 2MG IV DILAUDID FOR 9/10 BILATERAL LOWER LEG PAIN. PATIENT RESPIRATIONS ARE 17 AND PATIENT TOLERATED MEDICATION WELL. PATIENT DOES NOT WANT TO BE TURNED AT THIS TIME.
--- NOTE | 2018-10-12 10:30 | NUR ---
CALLED HAYLEE [facility] [phone] REGARDING THE D/C PLAN , UPDATED ALL CLINICALS AND WOUND CARE OF PATIENT, PER HAYLEE WILL DISCUSS WITH THEIR CIGAR SORTER AND CALL BACK
[2018-10-12 11:19] LABS: MAGNESIUM 1.8 mg/dL (1.8-2.4); PHOSPHORUS 4.6 mg/dL (2.5-4.9)
[2018-10-12 11:26] LABS: ALBUMIN 1.9 g/dL (3.4-5.0); ANION GAP 11.1 (8-16); CARBON DIOXIDE 29.7 mmol/L (21-32); CREATININE 1.2 mg/dL (0.7-1.3); POTASSIUM 3.8 mmol/L (3.5-5.1); TOTAL BILIRUBIN 0.1 mg/dL (0.0-1.0)
--- NOTE | 2018-10-12 11:55 | NUR ---
ADMINISTERED 2MG IV DILAUDID FOR 9/10 BILATERAL LOWER LEG PAIN. PATIENT RESPIRATIONS ARE 18 AND PATIENT TOLERATED MEDICATION WELL. EMPTIED URINAL 400 ML. NO STOOL IN COLOSTOMY BAG. PATIENT DOES NOT WANT TO BE TURNED AT THIS TIME.
[2018-10-12] MEDS: ONDANSETRON 4 MG/2 ML VIAL IVP PRN (12:03)
--- NOTE | 2018-10-12 12:59 | NUR ---
DISCHARGE PLANNING Left a message for [facility]-RN Farheen to follow-up on placement alternatives for this patient. Sw left a voicemail and will follow-up as needed. Dasia Pederson, ACSW Ext [phone]
--- NOTE | 2018-10-12 14:55 | NUR ---
ADMINISTERED 2MG IV DILAUDID FOR 9/10 BILATERAL LOWER LEG PAIN. PATIENT RESPIRATIONS ARE 16 AND PATIENT TOLERATED MEDICATION WELL. PATIENT DOES NOT WANT TO BE TURNED AT THIS TIME. BED IS LOW, CALL LIGHT IN REACH, WILL CONTINUE TO MONITOR. PATIENT CURRENTLY NPO FOR PENDING DRESSING CHANGE UNDER ANESTHESIA IN OR.
--- NOTE | 2018-10-12 14:58 | NUR ---
ADMINISTERED 2M DILAUDID IV FOR PAIN 9/10 IN BILATERAL LOWER EXTREMITIES. PATIENT TOLERATED WELL. RESPIRATIONS ARE 16 AND ARE EVEN AND UNLABORED. NO SIGNS OF DISTRESS ON RA. BED IS LOW, CALL LIGHT IS IN REACH. MOTHER AT BEDSIDE. WILL CONTINUE TO MONITOR.
--- NOTE | 2018-10-12 15:48 | NUR ---
PATIENT OFF UNIT FOR DRESSING CHANGE IN OR. VITALS STABLE. WILL RESUME CARE WHEN PATIENT RETURNS TO UNIT.
[2018-10-12] MEDS ORDERED: ONDANSETRON 4 MG/2 ML VIAL ONE (16:10)
[2018-10-12] MEDS ORDERED: PROPOFOL 200 MG/20 ML VIAL IV ONE (16:10)
[2018-10-12] MEDS ORDERED: DESFLURANE 240 ML BTL INH ONE (16:10)
[2018-10-12] MEDS ORDERED: fentaNYL 0.05 MG/ML VIAL ONE (16:13)
[2018-10-12] MEDS ORDERED: ONDANSETRON 4 MG/2 ML VIAL IVP PRN (17:05)
[2018-10-12] MEDS: HYDROmorphone 1 MG/ML AMP IVP PRN ×4 (17:10→17:40)
[2018-10-12 17:20] VITALS: BP 135/82
[2018-10-12] MEDS ORDERED: HYDROmorphone PFS 2 MG/ML SYR ONE (17:22)
[2018-10-12] MEDS: AMINO ACIDS 8.5% IV SCH ×12 (17:26→20:29)
[2018-10-12] MEDS: DEXTROSE IV SCH ×12 (17:26→20:29)
[2018-10-12] MEDS: MULTIVITAMIN IV SCH ×12 (17:26→20:29)
[2018-10-12] MEDS: [UNRECOGNIZED DRUG - OTHER] IV SCH ×12 (17:26→20:29)
--- NOTE | 2018-10-12 17:40 | NUR ---
PATIENT RETURNED TO UNIT FROM DRESSING CHANGE. VITALS STABLE. PAIN 09/18, WILL MEDICATE. PATIENT RECENTLY RECEIVED PAIN MEDICATION IN OR. DRESSINGS CLEAN AND DRY, PICTURES TAKEN AND REVIEWED WITH MOTHER AT HER REQUEST. RE-EDUCATED PATIENT AND MOTHER OF IMPORTANCE OF TURNING AND REPOSITIONING TO RELIEVE PRESSURE ON FRAGILE SKIN AND BONY AREAS. PATIENT NODDED IN AGREEMENT. STATES THAT HE SELF POSITIONS.
[2018-10-12] MEDS: NACL 0.9% 1,000 ML IV SCH (18:54)
--- NOTE | 2018-10-12 19:10 | NUR ---
GAVE REPORT TO OFFICE SYSTEM ANALYST RN, ENDORSED PATIENT IN STABLE CONDITION.
--- NOTE | 2018-10-12 19:30 | NUR ---
ASSUMED CARE OF PATIENT, AWAKE, ALERT AND ORIENTED. NO DISTRESS. NO COMPLAINS. MOTHER AT BEDSIDE. DRESSING DRY AND INTACT. COLOSTOMY BAG INTACT. PICC LINE INTACT. PLAN OF CARE DISCUSSED WITH PATIENT, VERBALIZED UNDERSTANDING WELL. CARE BOARD UPDATED. REFUSED TO BE REPOSITIONED.
--- NOTE | 2018-10-12 22:00 | NUR ---
PAIN MEDS GIVEN ORDERED. NO OTHER COMPLAINS. FOOD AT BEDSIDE NOT TOUCH AND ORDERED TURKEY SANDWICH. CALL LIGHT WITHIN REACH. DRESSING DRY AND INTACT. CALL LIGHT WITHIN REACH.
[2018-10-13] MEDS: HYDROmorphone PFS 2 MG/ML SYR IVP PRN ×11 (00:15→23:42)
--- NOTE | 2018-10-13 00:15 | NUR ---
PAIN MEDS GIVEN ORDERED. VITALS SIGNS STABLE. REFUSED TO BE REPOSITIONED. ACCUCHECK-92. CALL LIGHT WITHIN REACH.
[2018-10-13] MEDS: BLOOD GLUCOSE MONITORING 1 DEV DEV FS SCH ×5 (00:18→23:47)
[2018-10-13 00:48] VITALS: BP 122/62
--- NOTE | 2018-10-13 01:00 | NUR ---
OFFERED REPOSITIONED FOR COMFORT AND OFF LOADING, REFUSED.
--- NOTE | 2018-10-13 02:30 | NUR ---
PAIN MEDICATION GIVEN ORDERED. NO OTHER COMPLAINS. OFFERED TO BE REPOSITIONED, REFUSED AT THIS TIME. CALL LIGHT WITHIN REACH.
--- NOTE | 2018-10-13 04:39 | NUR ---
REFUSED TO BE MOVE TO REPOSITION. PAIN MEDS GIVEN ORDERED. CALL LIGHT WITHIN REACH.
--- NOTE | 2018-10-13 06:00 | NUR ---
AWAKE, BS-97. CALL LIGHT WITHIN REACH.
--- NOTE | 2018-10-13 07:24 | NUR ---
ENDORSED CARE AT BEDSIDE WITH AILYN CAPPS, PATIENT IN STABLE CONDITION.
--- NOTE | 2018-10-13 07:31 | NUR ---
RECEIVED REPORT FROM JAVA LEAD ENGINEER RN. PATIENT IS AAOX4, AWAKE IN BED WATCHING TV. NO DISTRESS OR COMPLAINTS. DRESSING DRY AND INTACT FROM DRESSING CHANGE YESTERDAY. COLOSTOMY BAG INTACT. PICC LINE INTACT. PLAN OF CARE DISCUSSED WITH PATIENT, VERBALIZED UNDERSTANDING WELL. CARE BOARD UPDATED. PT REFUSING TO BE REPOSITIONED AT THIS TIME. EXPLAINED IMPORTANCE OF REPOSITIONING TO PT. PT VERBALIZED UNDERSTANDING BUT STILL REFUSING. WILL TRY AGAIN LATER. WILL ROUND FREQUENTLY ON PT.
[2018-10-13 08:00] VITALS: BP 114/64
[2018-10-13 08:11] LABS: MAGNESIUM 1.7 mg/dL (1.8-2.4); PHOSPHORUS 4.4 mg/dL (2.5-4.9)
[2018-10-13 08:20] LABS: ANION GAP 10.9 (8-16); CARBON DIOXIDE 28.1 mmol/L (21-32); CREATININE 1.2 mg/dL (0.7-1.3)
[2018-10-13] MEDS: DOCUSATE SODIUM 100 MG GELCAP PO SCH (08:55)
[2018-10-13] MEDS: DULoxetine 30 MG CAPDR PO SCH (08:55)
--- NOTE | 2018-10-13 09:47 | NUR ---
PT RESTING IN BED. ALL MEDS GIVEN. WILL CONTINUE TO ROUND FREQUENTLY ON PT.
--- NOTE | 2018-10-13 11:34 | NUR ---
PT RESTING IN BED. ALL NEEDS MET. PT REFUSING TO BE TURNED AND CLEANED. EXPLAINED IMPORTANCE OF REPOSITIONING TO PT IN ORDER TO AVOID PRESSURE ULCERS. PT VERBALIZED UNDERSTANDING BUT STILL REFUSING AT THIS TIME. WILL CONTINUE TO ROUND FREQUENTLY ON PT.
--- NOTE | 2018-10-13 11:45 | NUR ---
SPOKE WITH HAYLEE FROM [facility] FOR F/U DISCHARGE PLANNING UPDATED PT CLINICAL , SHE DISCUSSED WITH THE MEDICAL DR AND REQUESTED FOR PEER TO PEER DISCUSSION FOR D/C PLAN. PROVIDE DR CAICEDO'S CELL PHONE. CM TO FOLLOW UP
--- NOTE | 2018-10-13 13:17 | NUR ---
CALLED [facility] [phone] FOR REFERRAL SPOKE WITH ALEX EXPLAIN THAT PT NEEDS AGGRESSIVE WOUND CARE , FAXED PAPER WORK [phone]. FAXED TO [facility] [phone] SPOKE WITH ANTHONY EXPLAINED THAT PT NEEDS WOUND CARE AFTER REVIEWING THE CASE SHE WILL CALL BACK.
--- NOTE | 2018-10-13 13:47 | NUR ---
PT RESTING IN BED. ALL NEEDS MET. WILL CONTINUE TO ROUND FREQUENTLY ON PT. BED IN LOW POSITION, CALL LIGHT WITHIN REACH.
--- NOTE | 2018-10-13 14:50 | NUR ---
I RECEIVED A CALL FROM KISHORE MCCABE THAT [facility] CONTACTED HIM REGARDING ACCEPTING THE PATIENT AND REQUESTING FOR THE WOUND CARE WITH ANESTHESIA CAN BE DONE OUT SIDE OF THEIR HOSPITAL ,BECAUSE THEY DON'T HAVE OR. PER KISHORE WAIT FOR THE PEER TO PEER DISCUSSION AND WILL DECIDE. SPOKE WITH HAYLEE MCCABE STILL WAITING THE PEER TO PEER DISCUSSION.
--- NOTE | 2018-10-13 15:48 | NUR ---
PT RESTING IN BED. ALL NEEDS MET. WILL CONTINUE TO ROUND FREQUENTLY ON PT.
--- NOTE | 2018-10-13 15:53 | NUR ---
10/13/18 RD FOLLOW UP COMPLETED PLEASE REFER TO NUTRITION ASSESSMENT UNDER CARE ACTIVITY FOR ESTIMATED NUTRITIONAL NEEDS. 1. RECOMMEND TO INCREASE TPN TO D20%, AA 4.25% AT 100 ML/HR AND LIPIDS 10% (240 ML) -THIS WILL PROVIDE PATIENT WITH 2376 KCAL, 102 GM OF PROTEIN 2. ENCOURAGE INCREASING PO INTAKE 3. CONTINUE BLAND/SOFT DIET TOLERATED WITH SUPPLEMENTS BROUGHT FROM HOME 4. CONTINUE RODRIGUEZ BID 5. RD WILL FOLLOW UP 2-3 DAYS, HIGH RISK ALEXEI JOHNSTON RD
[2018-10-13 16:00] VITALS: BP 126/66
--- NOTE | 2018-10-13 17:15 | NUR ---
PT REFUSING TO BE TURNED AND REPOSITIONED. PT TOLD MOM IN FRONT OF ME THAT HE WAS TURNED EARLIER BUT I TOLD HER THAT HE HAS BEEN REFUSING THE WHOLE SHIFT. CHARGE NURSE AWARE OF SITUATION.
--- NOTE | 2018-10-13 17:44 | NUR ---
PT RESTING IN BED WITH MOTHER AT BEDSIDE. PT NEEDS MET. WILL ROUND FREQUENTLY ON PT.
[2018-10-13] MEDS: NACL 0.9% 1,000 ML IV SCH (17:48)
--- NOTE | 2018-10-13 19:25 | NUR ---
RECEIVED FROM AM RN IN BED AWAKE AND ALERT. PT. ABLE TO LET HIS NURSES KNOW WHAT HE WANTS OR NEED. MOTHER AT BEDSIDE AT THIS TIME. NO COMPLAINTS DONE. PT. JUST HAD HIS PAIN MEDICATION OF DILAUDID ADMINISTERED BY AM RN. CALL LIGHT WITH IN REACH . PICC LINE TO RIGHT UPPER ARM WITH TPN AND NS INFUSING WELL. ENCOURAGED TO CALL FOR ANY HELP OR IF IN PAIN.
--- NOTE | 2018-10-13 19:50 | NUR ---
ENDORSED PT TO DINING ROOM MANAGER FOR CONTINUITY OF CARE. PT IN STABLE CONDITION AT THIS TIME.
[2018-10-13] MEDS: DEXTROSE IV SCH ×4 (20:23)
[2018-10-13] MEDS: MULTIVITAMIN IV SCH ×4 (20:23)
[2018-10-13] MEDS: [UNRECOGNIZED DRUG - OTHER] IV SCH ×4 (20:23)
[2018-10-13] MEDS: AMINO ACIDS 8.5% IV SCH ×4 (20:23)
[2018-10-13 21:09] VITALS: BP 115/64
--- NOTE | 2018-10-13 21:32 | NUR ---
PT. PROVIDED WITH TURKEY SANDWICH REQUESTED AND ICE. REQUESTED FOR DILAUDID IVP RT STATED HE HAS PAIN 09/18. MOTHER AT BEDSIDE. MEDICATED ORDERED. TPN INFUSING WELL. PICC LINE PATENT AND NO NOTED INFILTRATION. CALL LIGHT WITH IN REACH. NO COMPLAINTS DONE. REMINDED PT. TO PLEASE TURN SELF RT PER PT. REFUSED TO BE TURNED BY STAFF EXCEPT BY HIMSELF AND MOTHER ONLY. "I WILL TURN"
--- NOTE | 2018-10-13 21:40 | NUR ---
REMINDED NPO MIDNIGHT FOR PROCEDURE TOMORROW. "OK"
[2018-10-13 23:55] VITALS: BP 114/57
--- NOTE | 2018-10-14 00:20 | NUR ---
PT. SLEEPING WHEN I CHECKED ON HIM. CALL LIGHT WITH IN REACH AND ABLE TO USE IT WELL FOR HELP OR IF IN PAIN.
[2018-10-14 01:39] VITALS: BP 116/62
[2018-10-14] MEDS: HYDROmorphone PFS 2 MG/ML SYR IVP PRN ×8 (01:39→19:55)
--- NOTE | 2018-10-14 01:41 | NUR ---
WOKE UP AT THIS TIME AND MOANING ASKING FOR PAIN RELIEVER. "I AM IN SO MUCH PAIN" MEDICATED REQUESTED. USES CALL LIGHT WELL FOR HELP.
--- NOTE | 2018-10-14 03:28 | NUR ---
PT. AWAKE AT THIS TIME WATCHING TV. NO COMPLAINTS . CALL LIGHT WITH IN REACH. REFUSED TO BE TURNED. EXPLAINED PROS AND CONS.
[2018-10-14 04:08] VITALS: BP 126/68
--- NOTE | 2018-10-14 05:32 | NUR ---
PT. AWAKE AT THIS TIME . CLEANED BY FLAT SPRING ASSEMBLER AND NURSE. REMINDED AGAIN NPO FOR PROCEDURE PLANNED. PT. STATED THAT HE WAS NOT INFORMED ABOUT IT AND THAT USUALLY MD CAICEDO COMES AND TELLS HIM PERSONALLY. REFUSED TO SIGN CONSENT AT THIS TIME. STATED HIS LAST DRINK OF WATER WAS 4 AM. " I CAN NOT BE UNDER ANESTHESIA ALL THE TIME. LAST TIME WAS THURSDAY" . INFORMED CHARGE NURSE OF PT. EXPLANATION. PER PT. HE NEEDS TO SEE MD CAICEDO PERSONALLY AND EXPLAIN IT TO HIM .
[2018-10-14] MEDS: BLOOD GLUCOSE MONITORING 1 DEV DEV FS SCH ×3 (05:40→17:00)
[2018-10-14 06:08] VITALS: BP 127/72
--- NOTE | 2018-10-14 06:32 | NUR ---
CALLED Leon BOB AND ABLE TO TALK TO HIM RE: PT. REFUSED TO SIGN AND THAT PT. SAID HE NEEDS TO TALK WITH HIM PERSONALLY FIRST AND EXPLAIN THE PLAN . EXPLAINED PROCEDURE PLAN TO PT. EARLIER AND THAT HE REFUSED TO SIGN. REMINDED MD CAICEDO THAT LAST DRINK WAS 4 AM. "OK" ASKED IF HE WANTS HIM TO STILL BE NPO TODAY AND MD CAICEDO SAID "NO" INFORMED CHARGED NURSE OF WHAT TRANSPIRED BETWEEN AND ME.
[2018-10-14 07:07] LABS: ANION GAP 10.2 (8-16); CARBON DIOXIDE 29.1 mmol/L (21-32); CREATININE 1.1 mg/dL (0.7-1.3); POTASSIUM 3.3 mmol/L (3.5-5.1)
--- NOTE | 2018-10-14 07:10 | NUR ---
RECEIVED PATIENT FROM COOLING PAN TENDER NURSE. PATIENT IS LAYING IN BED WATCHING TV. PATIENT IS ON ROOM AIR, NO SIGNS OF RESP DISTRESS. PATIENT HAS A PICC LINE DOUBLE LUMEN WITH NS @100ML/HR AND TPN AT 100ML/HR. A&O X4. WILL CONTINUE TO MONITOR Addendum: 10/14/18 at 0938 by Antonia Oneal RN NS INFUSING AT 42ML/HR
--- NOTE | 2018-10-14 07:24 | NUR ---
ENDORSED TO THE NEXT RN FOR CONTINUITY OF CARE. AWAKE AND ALERT. VERBALIZING NEEDS WELL.
[2018-10-14 07:29] LABS: MAGNESIUM 1.8 mg/dL (1.8-2.4); PHOSPHORUS 4.1 mg/dL (2.5-4.9)
[2018-10-14] MEDS: DULoxetine 30 MG CAPDR PO SCH (08:14)
[2018-10-14] MEDS: DOCUSATE SODIUM 100 MG GELCAP PO SCH (08:14)
--- NOTE | 2018-10-14 08:15 | NUR ---
ADMINISTERED PAIN MEDICATION FOR PAIN 10/19. WILL RE ASSESS IN ONE HOUR. VITALS WNL PRIOR
--- NOTE | 2018-10-14 10:20 | NUR ---
PATIENT RECEIVED PAIN MEDICATION FOR PAIN 10/19. WILL RE ASSESS
--- NOTE | 2018-10-14 12:03 | NUR ---
DISCHARGE PLANNING Call made to Jami CAPPS DC nurse at [facility] to follow-up on placement at [facility] in [place]. SW left a voicemail. Dasia Pederson, ACSW Ext [phone]
--- NOTE | 2018-10-14 12:40 | NUR ---
ADMINISTERED PAIN MEDICATION FOR PAIN /10 AND ZOFRAN FOR NAUSEA. WILL RE-ASSESS
[2018-10-14] MEDS: ONDANSETRON 4 MG/2 ML VIAL IVP PRN (12:42)
--- NOTE | 2018-10-14 14:25 | NUR ---
RECEIVED A CALL FROM [facility] SPOKE WITH ANTHONY ,STATED THEIR PLASTIC SURGEON DR SHEETS, [place] [phone] REQUESTED PEER TO PEER WITH DR CAICEDO , PROVIDE DR CAICEDO THE NUMBER AND CM WILL F/U
--- NOTE | 2018-10-14 15:47 | NUR ---
ADMINISTERED PAIN MEDICATION FOR PAIN 10/19. WILL RE-ASSESS PAIN
[2018-10-14 16:00] VITALS: BP 101/51
[2018-10-14] MEDS: NACL 0.9% 1,000 ML IV SCH (16:49)
[2018-10-14] MEDS: fentaNYL 0.05 MG/HR PATCH TD SCH (17:04)
--- NOTE | 2018-10-14 17:09 | NUR ---
PER DR GARCIA FENTANYL PATCH WAS APPLIED FOR BREAKTHROUGH PAIN.
--- NOTE | 2018-10-14 17:19 | NUR ---
PT STATED TO SLEEPING X3H TODAY. ADMINISTERED PAIN MEDICATION FOR PAIN 10/19. WILL RE ASSESS. VITAL SIGNS WNL PRIOR TO ADMINISTRATION.
--- NOTE | 2018-10-14 18:55 | NUR ---
PATIENT IS IN STABLE CONDITION. WILL ENDORSE TO MEDICAL OPERATIONS SUPERVISOR NURSE FOR CONTINUITY OF CARE
--- NOTE | 2018-10-14 19:25 | NUR ---
RECEIVED ENDORSEMENT FORM ASSIGNED DAYSHIFT NURSE AT BEDSIDE FOR CONTINUITY OF CARE PT IN STABLE CONDITION.
[2018-10-14] MEDS: KCL 20 MEQ/WATER INJ PREMIX 100 ML IV SCH ×2 (19:53→23:20)
[2018-10-14] MEDS: MULTIVITAMIN IV SCH ×4 (20:08)
[2018-10-14] MEDS: AMINO ACIDS 8.5% IV SCH ×4 (20:08)
[2018-10-14] MEDS: DEXTROSE IV SCH ×4 (20:08)
[2018-10-14] MEDS: [UNRECOGNIZED DRUG - OTHER] IV SCH ×4 (20:08)
--- NOTE | 2018-10-14 20:15 | NUR ---
PT IN BED ALL FALLS AND CONTACT PRECAUTIONS IN PLACE. PT C/O SEVERE PAIN IN BACK AND LEGS, GIVEN PRN/IVP DILAUDID, WILL MONITOR FOR PAIN RELIEF. PT DECLINES TO BE TURNED AND REPOSITIONED. NEW BAG OF TPN HUNG AND RUNNING AT 100MLS/HR ORDERED. MAG RIDER HUNG AND RUNNING ORDERED. V/S FOLLOWS T 98.3 P 100 R 18 B/P 109/64 02 99% ON ROOM AIR. WILL MONITOR PT FOR PAIN RELIEF.
--- NOTE | 2018-10-14 21:30 | NUR ---
2ND BAG OF K RIDER HUNG AND IS RUNNING ORDERED. PT HAS NO S/S OF PAIN OR DISTRESS NOTED. ALTHOUGH PT IS ON WOUND BED, HE DECLINES TO BE TURNED AND REPOSITIONED.
--- NOTE | 2018-10-14 22:30 | NUR ---
PT C/O SEVERE PAIN IN LEGS. HOWEVER, DILAUDID ORDER HAD LALI COMPLETED AND NEED TO BE RE-ORDERED. PULMONARY EXCHANGED WAS CALLED AND CSO DR. GARCIA WAS PAGED.
--- NOTE | 2018-10-14 23:00 | NUR ---
DR. ESPARZA CALLED BACK AND GAVE A TORB TO CONTINUE WITH DILAUDID 2MG 2QHRS IVP/PRN PREVIOUSLY ORDERED.
[2018-10-14] MEDS ORDERED: HYDROmorphone PFS 2 MG/ML SYR ONE (23:28)
--- NOTE | 2018-10-14 23:28 | NUR ---
PT GIVEN IVP/PRN DILAUDID FOR SEVERE PAIN. PT DECLINES TO BE TURNED AND REPOSITIONED. WILL MONITOR FOR PAIN RELIEF. ALL REQUESTED NEEDS ATTENDED AND CALL CONN IN REACH. ALL CONTACT AND FALLS PRECAUTIONS IN PLACE.
[2018-10-15] VITALS: BP 104/54
--- NOTE | 2018-10-15 00:15 | NUR ---
PT IN BED NO S/S OF PAIN OR DISTRESS NOTED. TPN CONTINUES TO RUN ORDERED. NS RUNNING AT 42MLS/HR. V/S A FOLLOWS T 98.3 P 96 R 18 B/P 104/54 02 99% ON ROOM AIR. FINGERSTICK IS 98, NO COVERAGE NEEDED.
[2018-10-15] MEDS: HYDROmorphone 1 MG/ML AMP IVP PRN ×3 (01:39→06:12)
--- NOTE | 2018-10-15 02:00 | NUR ---
PT C/O 10/19 PAIN IN LEGS AND BACK, GIVEN IVP DILAUDID FOR SEVERE PAIN. PT ALSO CONTINUES ON A WOUND BED , BUT REFUSES TO TURN. ALL REQUESTED NEEDS ATTENDED AND ALL CONTACT AND FALLS PRECAUTIONS IN PLACE.
--- NOTE | 2018-10-15 04:00 | NUR ---
PT AGAIN C/O SEVERE PAIN IN BACK AND LEGS, GIVEN IVP DILAUDID FOR SEVERE PAIN. PT REFUSES TO TURN. PICC LINE INTACT AND RUNNING TPN AT 100MLS/HR. NS RUNNING AT 42MLS/HR. ALL REQUESTED NEEDS ATTENDED, CALL CONN IN REACH AND ALL FALLS AND CONTACT PRECAUTIONS IN PLACE.
--- NOTE | 2018-10-15 06:15 | NUR ---
PT FINGERSTICK IS 101 NO HUMALOG COVERAGE NEEDED. ALL FALLS AND CONTACT PRECAUTIONS IN PLACE. PT CONTINUES TO DECLINE TO TURN. PICC LINE INTACT AND RUNNING ORDERED FLUIDS. PT C/O OF SEVERE PAIN AND WAS GIVEN IVP DILAUDID WILL CONTINUE TO MONITOR FOR PAIN RELIEF. CARE TO BE ENDORSE TO NEXT SHIFT.
[2018-10-15] MEDS: BLOOD GLUCOSE MONITORING 1 DEV DEV FS SCH ×4 (06:22→18:13)
[2018-10-15 08:00] VITALS: BP 111/59
--- NOTE | 2018-10-15 08:00 | NUR ---
PATIENT REFUSED TO BE TURNED TO A DIFFERENT POSITION IN BED. ALSO REFUSED SHEETS/CHUX TO BE CHANGED
[2018-10-15] MEDS: DULoxetine 30 MG CAPDR PO SCH (08:32)
[2018-10-15] MEDS: DOCUSATE SODIUM 100 MG GELCAP PO SCH (08:32)
[2018-10-15] MEDS: HYDROmorphone PFS 2 MG/ML SYR IVP PRN ×6 (08:37→22:45)
--- NOTE | 2018-10-15 09:15 | NUR ---
PATIENT IS RESTING IN BED WATCHING TELEVISION. NO RESP DISTRESS NOTED.
[2018-10-15 09:43] LABS: CARBON DIOXIDE 29.5 mmol/L (21-32); POTASSIUM 3.5 mmol/L (3.5-5.1)
[2018-10-15 09:47] LABS: MAGNESIUM 1.8 mg/dL (1.8-2.4); PHOSPHORUS 3.7 mg/dL (2.5-4.9)
--- NOTE | 2018-10-15 10:00 | NUR ---
PATIENT REFUSED TO BE TURNED PER Q2H PROTOCOL.
--- NOTE | 2018-10-15 10:30 | NUR ---
ADMINISTERED PAIN MEDICATION FOR PAIN 10/19. WILL RE-ASSESS
[2018-10-15] MEDS: ONDANSETRON 4 MG/2 ML VIAL IVP PRN (10:32)
--- NOTE | 2018-10-15 11:06 | NUR ---
PATIENTS BLOOD SUGAR IS 102. NO INSULIN COVERAGE NEEDED.
--- NOTE | 2018-10-15 12:00 | NUR ---
RETRIEVED NEW [place] FOR PATIENT THE OTHER ONE WAS FADED AND NOT SCANNING PROPERLY.
--- NOTE | 2018-10-15 12:20 | NUR ---
ADMINISTERED PAIN MEDICATION FOR PAIN 10/19
--- NOTE | 2018-10-15 12:41 | NUR ---
ASKED PATIENT IF HE WOULD LIKE TO BE TURNED TO A DIFFERENT POSITION AND IF WE WOULD LIKE BED SHEETS CHANGED. HE STATED HE DIDN'T WANT TO BECAUSE HIS "BACK HURTS". SISTER AT BEDSIDE PRESENT AND ASKED HIM WELL IF HE WOULD LIKE TO BE TURNED TO TAKE THE PRESSURE OFF HIS BUTT. PATIENT STILL REFUSED. NOTIFIED PATIENT THAT IF HE CHANGED HIS MIND HE CAN HIT THE CALL LIGHT AND WE WILL REPOSITION AND CHANGE HIM.
--- NOTE | 2018-10-15 14:40 | NUR ---
MEDICATED PATIENT FOR PAIN OF 9/10. WILL RE-ASSESS
--- NOTE | 2018-10-15 15:44 | NUR ---
10/15/18 RD FOLLOW UP COMPLETED PLEASE REFER TO NUTRITION ASSESSMENT UNDER CARE ACTIVITY FOR ESTIMATED NUTRITIONAL NEEDS. 1. RECOMMEND INCREASING TPN TO D18%, AA 4.25% AT 100 ML/HR AND LIPIDS 20%(240 ML) -THIS WILL PROVIDE PATIENT WITH 2428 KCAL, 102 GM OF PROTEIN 2. ENCOURAGE INCREASING PO INTAKE 3. CONTINUE BLAND/SOFT DIET TOLERATED WITH SUPPLEMENTS BROUGHT FROM HOME 4. CONTINUE RODRIGUEZ BID 5. RD WILL FOLLOW UP 2-3 DAYS, HIGH RISK ALEXEI JOHNSTON RD
[2018-10-15 16:00] VITALS: BP 106/55
[2018-10-15] MEDS: NACL 0.9% 1,000 ML IV SCH (16:53)
--- NOTE | 2018-10-15 18:00 | NUR ---
PATIENTS BLOOD SUGAR AT 104. NO INSULIN COVERAGE NEEDED
--- NOTE | 2018-10-15 19:10 | NUR ---
RECEIVED REPORT FROM EDNA RN DAYSHIFT NURSE AT BEDSIDE FOR CONTINUITY OF CARE, PT IN STABLE CONDITION.
--- NOTE | 2018-10-15 20:10 | NUR ---
PT ON WOUND BED WITH ALL FALLS AND CONTACT PRECAUTIONS IN PLACE. PICC LINE INTACT, TPN REPLACED AND RUNNING AT 100MLS ORDERED. NS REPLACED AND IS RUNNING AT 42MLS/HR. PT C/O SEVERE PAIN IN BACK AND LEGS AND WAS GIVEN DILAUDID IVP. WILL MONITOR FOR EFFECT. V/S FOLLOWS T 98.4 P 96 R 18 B/P 88/40 02 98% ON ROOM AIR. FAMILY AT BEDSIDE.
[2018-10-15] MEDS: DEXTROSE IV SCH ×4 (20:44)
[2018-10-15] MEDS: AMINO ACIDS 8.5% IV SCH ×4 (20:44)
[2018-10-15] MEDS: MULTIVITAMIN IV SCH ×4 (20:44)
[2018-10-15] MEDS: [UNRECOGNIZED DRUG - OTHER] IV SCH ×4 (20:44)
--- NOTE | 2018-10-15 22:53 | NUR ---
PT ON WOUND BED ALL FALLS AND CONTACT PRECAUTIONS IN PLACE. PT C/O OF SEVERE PAIN IN BACK AND LEGS GIVEN ORDERED IVP DILAUDID. PT REFUSED TO TURN OR BE REPOSITIONED. ALL REQUESTED NEEDS ATTENDED. CALL CONN IN REACH AND FAMILY AT BEDSIDE.
[2018-10-16] VITALS: BP 105/59
--- NOTE | 2018-10-16 | NUR ---
PT IN BED, HE DECLINED TO TURN V/S FOLLOWS T 98.2 P 94 R 18 B/P105/59 02 100% ON ROOM AIR. FINGERSTICK IS 101. NO HUMALOG COVERAGE NEEDED. ALL CONTACT AND FALLS PRECAUTIONS IN PLACE. FAMILY LEFT BEDSIDE.
[2018-10-16] MEDS: HYDROmorphone PFS 2 MG/ML SYR IVP PRN ×11 (01:21→23:57)
--- NOTE | 2018-10-16 01:25 | NUR ---
PT C/O SEVERE PAIN IN LEGS AND BACK GIVEN IVP DILAUDID, TPN RUNNING ORDERED. PT CONTINUES TO DECLINE TO TURN.
[2018-10-16] MEDS: ONDANSETRON 4 MG/2 ML VIAL IVP PRN ×4 (03:39→19:29)
[2018-10-16] MEDS: BLOOD GLUCOSE MONITORING 1 DEV DEV FS SCH ×4 (05:43→18:04)
--- NOTE | 2018-10-16 05:50 | NUR ---
PT C/O SEVERE PAIN IN LEGS GIVEN IVP DILAUDID WILL MONITOR FOR PAIN F/S IS 79 NO COVERAGE NEED.
--- NOTE | 2018-10-16 07:10 | NUR ---
RECEIVED BEDSIDE REPORT FROM ZIGZAG APPLIQUER NURSE. PT IS AWAKE AND ALERT, NO S/S OF ANY ACUTE DISTRESS OR SOB NOTED. PT IS LYING IN BED WATCHING TV. PT IS ON ROOM AIR. BURN SCARS NOTED ON THE RUE. PT HAS A DOUBLE LUMEN PICC LINE ON THE RUE INFUSING TPN 100 ML/HR, AND NS 42 ML/HR. COLOSTOMY BAG PRESENT. PT IS ON CONTACT ISOLATION FOR MDRO OF THE WOUNDS. FALL PRECAUTIONS ARE IN PLACE, CALL LIGHT IS WITHIN REACH. WILL CONTINUE TO MONITOR.
[2018-10-16 07:35] LABS: ANION GAP 7.3 (8-16); CARBON DIOXIDE 30.8 mmol/L (21-32); POTASSIUM 3.1 mmol/L (3.5-5.1)
[2018-10-16 08:00] VITALS: BP 116/69
[2018-10-16] MEDS: DULoxetine 30 MG CAPDR PO SCH (08:03)
[2018-10-16] MEDS: DOCUSATE SODIUM 100 MG GELCAP PO SCH (08:04)
--- NOTE | 2018-10-16 08:15 | NUR ---
AM MEDS ADMINISTERED, PT TOLERATED WELL. PT WAS C/O NAUSEA AND 9/10 PAIN IN HIS LEGS AND BACK, REQUESTING PAIN MEDICINE. PRN IV DILAUDID AND ZOFRAN ADMINISTERED. WILL CONTINUE TO MONITOR.
[2018-10-16] MEDS ORDERED: POTASSIUM CHLORIDE 10 MEQ TABER PO SCH (09:55)
--- NOTE | 2018-10-16 09:56 | NUR ---
DR GREEN IS AWARE OF PT'S POTASSIUM 3.1. HE ORDERED KDUR 40 MEQ PO.
--- NOTE | 2018-10-16 10:30 | NUR ---
PT DID NOT EAT HIS TRAY BREAKFAST; REQUESTED A CHICKEN SALAD SANDWICH INSTEAD.
--- NOTE | 2018-10-16 11:47 | NUR ---
PT'S BLOOD GLUCOSE IS 76 AT THIS TIME. PT WAS ENCOURAGED TO DRINK ORANGE JUICE AND EAT HIS CHICKEN SALAD SANDWICH WHICH HE HASN'T STARTED EATING YET. PT SAYS THAT HE FEELS NAUSEOUS AND HAS NO APPETITE. WILL ADMINISTER ZOFRAN SOON HE CAN HAVE IT. PT IS ALSO C/O PAIN, ALTHOUGH HE HAD HIS PRN 2 MG DILAUDID IV LESS THAN 2 HOURS AGO. WILL ADMINISTER PAIN MEDICINE AGAIN WHEN APPROPRIATE. TPN IS INFUSING WELL.
--- NOTE | 2018-10-16 12:22 | NUR ---
PEDRO LUIS LOPEZ ADMINISTERED. PT STATES THAT HE HAS BEEN NAUSEOUS SINCE LAST NIGHT, AND HAS BEEN HAVING INTERMITTENT EPISODES OF VOMITING. I PROVIDED HIM SOME SALTINE CRACKERS AND ICE CHIPS TO HELP WITH HIS NAUSEA. PT ALSO INSTRUCTED TO SIP ON ORANGE JUICE TO BRING UP HIS BLOOD GLUCOSE. PT VERBALIZED UNDERSTANDING.
[2018-10-16 13:28] LABS: MAGNESIUM 1.8 mg/dL (1.8-2.4); PHOSPHORUS 4.3 mg/dL (2.5-4.9)
--- NOTE | 2018-10-16 13:48 | NUR ---
PT STILL HASN'T EATEN HIS CHICKEN SANDWICH AND HASN'T STARTED EATING HIS LUNCH. I REITERATED TO PT AGAIN THAT HE NEEDS TO EAT SOMETHING TO INCREASE HIS BLOOD GLUCOSE AND HIS ENERGY. PT VERBALIZED UNDERSTANDING, BUT STILL HAS NOT TOUCHED HIS FOOD. HE IS CURRENTLY PLAYING ON HIS IPAD. NO S/S OF ACUTE DISTRESS.
[2018-10-16 16:00] VITALS: BP 102/55
--- NOTE | 2018-10-16 16:30 | NUR ---
PT DID NOT EAT HIS LUNCH TRAY, STATES THAT HE IS STILL FEELING NAUSEOUS. I ENCOURAGED HIM TO DRINK HIS GATORADE TO INCREASE HIS BLOOD SUGAR. PT VERBALIZES UNDERSTANDING AND SAYS THAT HE WILL EAT AND DRINK, BUT STILL HASN'T EATEN MUCH OF ANYTHING TODAY. THE CHICKEN SANDWICH IS ALSO UNTOUCHED, BUT PT WANTS TO HANG ON TO IT BECAUSE HE DOES PLAN TO EAT IT LATER.
[2018-10-16] MEDS: NACL 0.9% 1,000 ML IV SCH (17:22)
--- NOTE | 2018-10-16 17:29 | NUR ---
PT HAS BEEN REFUSING TO HAVE HIS DRESSINGS ASSESSED, OR TO BE TURNED/REPOSITIONED. HE STATES THAT HE IS IN TOO MUCH PAIN TO BE MOVED AROUND. HE REPORTS THAT THE Q2H IV DILAUDID PROVIDES VERY MINIMAL PAIN RELIEF, AND ITS EFFECT DOES NOT LAST LONG.
--- NOTE | 2018-10-16 18:05 | NUR ---
PT'S BLOOD GLUCOSE IS 96 AT THIS TIME. NO INSULIN COVERAGE NEEDED, PT ENCOURAGED TO EAT HIS DINNER.
--- NOTE | 2018-10-16 19:08 | NUR ---
PT ENDORSED TO INSTRUMENT MAKER AND REPAIRER NURSE IN STABLE CONDITION
--- NOTE | 2018-10-16 19:15 | NUR ---
RECEIVED ENDORSEMENT FROM DAYSHIFT NURSE AT BEDSIDE FOR CONTINUITY OF CARE, PT IN STABLE CONDITION.
--- NOTE | 2018-10-16 19:30 | NUR ---
PT ON WOUND BED AOX4 PICC LINE INTACT AND RUNNING NS AT 42 MLS/HR WELL TPN AT 100MLS. PT C/O SEVERE PAIN IN BACK AND LEGS GIVEN IVP/PRN DILAUDID. PT ALSO C/O OF NAUSEA AND WAS GIVEN IVP/PRN ZOFRAN. V/S FOLLOWS T 98.5 P 110 R 18 B/P 113/71 02 98% ON ROOM AIR. ALL REQUESTED NEEDS ATTENDED BY STAFF AND CALL CONN IN REACH.
--- NOTE | 2018-10-16 20:00 | NUR ---
TPN HUNG ORDERED. PT ACKNOWLEDGED POSITIVE EFFECT OF DILAUDID AND ZOFRAN.
[2018-10-16] MEDS: MULTIVITAMIN IV SCH ×4 (20:25)
[2018-10-16] MEDS: DEXTROSE IV SCH ×4 (20:25)
[2018-10-16] MEDS: AMINO ACIDS 8.5% IV SCH ×4 (20:25)
[2018-10-16] MEDS: [UNRECOGNIZED DRUG - OTHER] IV SCH ×4 (20:25)
--- NOTE | 2018-10-16 21:45 | NUR ---
PT C/O SEVERE PAIN IN LEGS AND WAS GIVEN PRN/IVP DILAUDID WILL MONITOR FOR EFFECTIVENESS. PT DECLINED TO BE TURNED, WHEN ASKED ABOUT COLOSTOMY BAG PT SAID ITS EMPTY.
[2018-10-17] VITALS: BP 94/51
--- NOTE | 2018-10-17 | NUR ---
PT ON WOUND BED AWAKE, AOX4. FINGERSTICK IS 92, NO HUMALOG COVERAGE NEEDED. PT AGAIN C/O OF SEVERE PAIN IN LEGS AND BACK AND WAS GIVEN IVP/PRN DILAUDID. V/S FOLLOWS T 99.5 P 119 R 20 B/P 94/51 02 98% ON ROOM AIR. ALL REQUESTED NEEDS ATTENDED. PT AGAIN REFUSED TO TURN. DRESSINGS NOTED WITH SOME DRAINAGE , BUT PT REFUSES FOR STAFF TO CHANGE THEM. PT HAS HEATING PAD ON CHEST. ALL CONTACT AND FALLS PRECAUTIONS FOLLOWED.
[2018-10-17] MEDS: BLOOD GLUCOSE MONITORING 1 DEV DEV FS SCH ×5 (00:04→23:41)
[2018-10-17] MEDS: HYDROmorphone PFS 2 MG/ML SYR IVP PRN ×10 (02:45→21:51)
--- NOTE | 2018-10-17 02:45 | NUR ---
PT C/O SEVERE PAIN IN BACK AND LEGS, GIVEN IVP DILAUDID FOR THE PAIN. TPN AND FLUIDS RUNNING ORDERED.
--- NOTE | 2018-10-17 05:10 | NUR ---
PT C/O OF SEVERE PAIN IN BACK AND LEGS GIVEN IVP DILAUDID
--- NOTE | 2018-10-17 06:00 | NUR ---
FINGERSTICK IS 86 NO HUMALOG COVERAGE GIVEN. PT DECLINED TO BE TURNED ALL SHIFT. PT HAD NO C/O OF NAUSEA AND NO VOMITING. WILL ENDORSE POC TO AM SHIFT.
--- NOTE | 2018-10-17 07:05 | NUR ---
RECEIVED BEDSIDE REPORT FROM HAND BOOKBINDER NURSE LÓPEZ. PT IS AWAKE AND ALERT, C/O 9/10 PAIN IN THE LEGS AND BACK. WILL MEDICATE FOR PAIN SOON PT CAN HAVE IT. PT IS ON ROOM AIR. WOUND DRESSINGS ARE INTACT. CONTACT ISOLATION IS IN PLACE, FALL PRECAUTIONS IN PLACE, CALL LIGHT IS WITHIN REACH. RUE PICC LINE INFUSING TPN 100 ML/HR, AND NS 42 ML/HR. WILL CONTINUE TO MONITOR PT.
--- NOTE | 2018-10-17 07:40 | NUR ---
PRN IV DILAUDID 2 MG ADMINISTERED FOR 9/10 PAIN. PT DECLINED TAKING HIS SCHEDULED PO MEDS BECAUSE HE IS FEELING NAUSEOUS. HE REFUSES ZOFRAN AT THIS TIME. HE SAID HE WILL TRY TO TAKE THEM LATER.
[2018-10-17 08:00] VITALS: BP 119/70
[2018-10-17 08:24] LABS: MAGNESIUM 1.7 mg/dL (1.8-2.4); PHOSPHORUS 4.1 mg/dL (2.5-4.9)
[2018-10-17 08:31] LABS: ANION GAP 9.5 (8-16); CARBON DIOXIDE 30.8 mmol/L (21-32); POTASSIUM 3.3 mmol/L (3.5-5.1)
[2018-10-17] MEDS: DULoxetine 30 MG CAPDR PO SCH (09:00)
[2018-10-17] MEDS: DOCUSATE SODIUM 100 MG GELCAP PO SCH (09:00)
[2018-10-17] MEDS: MAG SULF 2000 MG/WATER PREMIX 50 ML IV PRN (09:17)
[2018-10-17] MEDS: ONDANSETRON 4 MG/2 ML VIAL IVP PRN ×2 (09:20→13:20)
--- NOTE | 2018-10-17 09:46 | NUR ---
IV DILAUDID AND ZOFRAN ADMINISTERED FOR PT C/O PAIN AND NAUSEA. PT DID NOT WANT TO TAKE HIS ORDERED PO MEDS DUE TO NAUSEA. MAG RIDER HUNG FOR MAGNESIUM OF 1.7. PT ALSO DID NOT EAT HIS BREAKFAST. HE REQUESTED A TURKEY SANDWICH FOR LATER.
--- NOTE | 2018-10-17 10:15 | NUR ---
DR GREEN MADE AWARE OF PT'S POTASSIUM 3.3 AND THAT PT HAS BEEN TOO NAUSEOUS TO TAKE ANYTHING BY MOUTH. DR GREEN ORDERED K RIDER 20 MEQ.
[2018-10-17] MEDS ORDERED: KCL 20 MEQ/WATER INJ PREMIX 100 ML IV ONE (10:20)
--- NOTE | 2018-10-17 12:04 | NUR ---
PT REFUSED HIS TRAY LUNCH. HE JUST TOOK THE JUICE BOX, FRUIT CUP, AND CRACKERS OFF THE TRAY, AND ASKED TO TOSS THE REST. HE STILL HASN'T STARTED EATING THE TURKEY SANDWICH HE ASKED FOR THIS MORNING. PT IS C/O NAUSEA, ALTHOUGH HE RECEIVED ZOFRAN TWO HOURS AGO. PT HAS MANY SNACKS LYING ON HIS BEDSIDE TABLE, BUT HE IS NOT EATING ANY OF THEM, DESPITE BEING ENCOURAGED TO EAT.
--- NOTE | 2018-10-17 13:25 | NUR ---
PT C/O NAUSEA AND 9/10 PAIN IN THE LEGS AND BACK. IV DILAUDID AND ZOFRAN ADMINISTERED. WILL REASSESS PAIN IN AN HOUR.
[2018-10-17 16:00] VITALS: BP 111/57
--- NOTE | 2018-10-17 16:00 | NUR ---
PT'S ORAL TEMP IS 99.9 AT THIS TIME. CHARGE NURSE IS AWARE. COOLING MEASURES IN PLACE (COOL ROOM, ICE PACKS). PRN TYLENOL WAS ORDERED IN CASE PT'S TEMP IS 100.4 OR ABOVE.
[2018-10-17] MEDS: NACL 0.9% 1,000 ML IV SCH ×2 (16:43→22:08)
[2018-10-17] MEDS: ACETAMINOPHEN 325 MG TAB PO PRN (17:14)
--- NOTE | 2018-10-17 17:15 | NUR ---
PT'S TEMP RECHECKED, IT IS 100.5 (ORAL) AT THIS TIME. PRN TYLENOL 650 MG ADMINISTERED PER PROTOCOL. WILL RECHECK TEMP WITHIN AN HOUR. COOLING MEASURES ARE IN PLACE (ICE PACKS AND COLD ROOM). PT IS REFUSING TO REMOVE THICK SHEET.
[2018-10-17] MEDS: fentaNYL 0.05 MG/HR PATCH TD SCH (17:34)
--- NOTE | 2018-10-17 18:18 | NUR ---
PT'S ORAL TEMP IS 98.9 AT THIS TIME.
--- NOTE | 2018-10-17 18:59 | NUR ---
PT ENDORSED TO ACID DIPPER NURSE IN STABLE CONDITION
--- NOTE | 2018-10-17 19:01 | NUR ---
Received endorsement from AM shift RN; patient A/Ox4, able to make needs known, French speaking, bedbound. Patient is talking with mother Saray; introduced self, updated board. No SOB or distress noted, on room air. On contact precautions for MDRO wounds; observed and maintained. IV site on right upper arm PICC line, double lumen, running TPN at 100mL/hr and NS running at 22mL/hr. 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 Bed in the lowest position, call light within reach. Initial assessment done. Will continue to monitor. Addendum: 10/18/18 at 0653 by Ketan Montero RN NS running at 42mL/hr.
[2018-10-17] MEDS: AMINO ACIDS 8.5% IV SCH ×4 (19:47)
[2018-10-17] MEDS: DEXTROSE IV SCH ×4 (19:47)
[2018-10-17] MEDS: MULTIVITAMIN IV SCH ×4 (19:47)
[2018-10-17] MEDS: [UNRECOGNIZED DRUG - OTHER] IV SCH ×4 (19:47)
--- NOTE | 2018-10-17 21:08 | NUR ---
Due meds given, tolerated well.
--- NOTE | 2018-10-17 23:55 | NUR ---
Vitals taken, no distress noted. Patient using his tablet.
[2018-10-18] VITALS: BP 105/61
--- NOTE | 2018-10-18 01:01 | NUR ---
Patient refused turning and repositioning.
--- NOTE | 2018-10-18 01:30 | NUR ---
Checks done; patient awake, using his tablet. No distress noted.
[2018-10-18] MEDS: HYDROmorphone PFS 2 MG/ML SYR IVP PRN ×12 (01:58→23:45)
--- NOTE | 2018-10-18 03:25 | NUR ---
Rounds done; no distress noted.
--- NOTE | 2018-10-18 04:53 | NUR ---
Checks made; patient resting comfortably, no distress noted.
[2018-10-18] MEDS: BLOOD GLUCOSE MONITORING 1 DEV DEV FS SCH ×4 (05:16→23:50)
--- NOTE | 2018-10-18 06:15 | NUR ---
Patient had an episode of vomiting at this time. Will administer PRN Zofran as ordered.
[2018-10-18] MEDS: ONDANSETRON 4 MG/2 ML VIAL IVP PRN (06:21)
--- NOTE | 2018-10-18 06:35 | NUR ---
Vitals stable, due meds given. Will endorse to AM shift RN for continuity of care.
[2018-10-18 06:39] LABS: BASOPHILS % (AUTO) 0.6 % (0.0-2.0); EOSINOPHILS # (AUTO) 0.3 K/uL (0-0.4); EOSINOPHILS % (AUTO) 4.7 % (0.0-4.0); HEMATOCRIT 22.4 % (36-52); HEMOGLOBIN 7.4 g/dL (12.0-18.0); LYMPHOCYTES # (AUTO) 1.5 K/uL (2.0-11.5); LYMPHOCYTES % (AUTO) 21.4 % (20.5-51.1); MEAN CORPUSCULAR HEMOGLOBIN 30 pg (27-31); MEAN CORPUSCULAR HGB CONC 33 g/dL (33-37); MONOCYTES # (AUTO) 1.1 K/uL (0.8-1.0); NEUTROPHILS # (AUTO) 4.1 K/uL (1.8-7.7); NEUTROPHILS % (AUTO) 58.3 % (42.2-75.2); PLATELET COUNT (AUTO) 407 K/uL (140-450); RED BLOOD CELL COUNT(AUTO) 2.49 MIL/uL (4.20-6.10); RED CELL DISTRIBUTION WIDTH 17.2 % (11.6-13.7)
--- NOTE | 2018-10-18 07:05 | NUR ---
RECEIVED PT FROM FARM MACHINE OPERATOR NURSEJAYSHREE, PT IS AWAKE AND LYING ON THE BED WITH SIDE RAILS UP AND CALL LIGHT WITHIN REACH, RT UA PICC LINE DOUBLE LUMEN IN PLACE WITH ONE LUMEN IVF OF NS AT 42ML/HR AND TPN ON THE OTHER LUMEN AT 100ML/HR, PT HAS A COLOSTOMY BAG IN PLACE, RT BKA AND LEFT LEG COVERED WITH DRESSING. PT DENIES PAIN AND NO SIGN OF DISTRESS NOTED AND WILL MONITOR PT.
[2018-10-18 08:00] VITALS: BP 102/58
[2018-10-18 08:03] LABS: ANION GAP 11.6 (8-16); CARBON DIOXIDE 28.6 mmol/L (21-32); POTASSIUM 3.2 mmol/L (3.5-5.1)
[2018-10-18 08:04] LABS: ALBUMIN 1.5 g/dL (3.4-5.0); TOTAL BILIRUBIN 0.1 mg/dL (0.0-1.0)
[2018-10-18 08:16] LABS: ALBUMIN 1.5 g/dL (3.4-5.0); MAGNESIUM 2.2 mg/dL (1.8-2.4); PHOSPHORUS 4.3 mg/dL (2.5-4.9)
[2018-10-18] MEDS: DOCUSATE SODIUM 100 MG GELCAP PO SCH (08:24)
[2018-10-18] MEDS: DULoxetine 30 MG CAPDR PO SCH (08:24)
--- NOTE | 2018-10-18 08:24 | NUR ---
PT C/O PAIN RATE OF 8/10 AND WAS GIVEN PAIN MEDICATION VIA IV PUSH.
--- NOTE | 2018-10-18 09:00 | NUR ---
CALLED [facility] SPOKE WITH HAYLEE , STATED STILL WAITING FOR PEER TO PEER DISCUSSION. KLEVER WATERSO) CONTACTED DR JACI PERALTA TO FOLLOW
--- NOTE | 2018-10-18 09:00 | NUR ---
PT WAS ASKED TO BE REPOSITIONED BUT PT REFUSED TO BE TURNED AND CHANGED POSITION AND REFUSED PRESSURE ULCER ASSESSMENT . WILL MONITOR PT.
[2018-10-18] MEDS ORDERED: POTASSIUM CHLORIDE 30 MEQ, LIDOCAINE 1% 25 MG in NACL 0.9% 250 ML IV PRN ×2 (12:00→13:05)
[2018-10-18] MEDS ORDERED: KCL 20 MEQ/WATER INJ PREMIX 100 ML IV SCH (12:00)
--- NOTE | 2018-10-18 12:40 | NUR ---
PT REFUSED TO HAVE A REPOSITIONING AT THIS TIME.
--- NOTE | 2018-10-18 12:52 | NUR ---
BLOOD GLUCOSE CHECK DONE AND RESULT IS 107, NO INSULIN COVERAGE NEEDED.
--- NOTE | 2018-10-18 12:56 | NUR ---
PT IS AWAKE, POTASSIUM RIDER WAS STARTED TO PT NOW FOR A K LEVEL OF 3.2. WILL MONITOR PT.
[2018-10-18] MEDS ORDERED: POTASSIUM CHLORIDE 40 MEQ, LIDOCAINE 1% 25 MG in NACL 0.9% 250 ML IV SCH (13:00)
--- NOTE | 2018-10-18 14:55 | NUR ---
PT WAS GIVEN PAIN MEDICATION NOW FOR C/O PAIN RATE OF 8/10.
--- NOTE | 2018-10-18 15:00 | NUR ---
PT WAS ASKED IF HE CAN BE REPOSITIONED AND PT REFUSED AGAIN.
[2018-10-18 16:00] VITALS: BP 105/53
--- NOTE | 2018-10-18 16:16 | NUR ---
10/18/18 RD FOLLOW UP COMPLETED PLEASE REFER TO NUTRITION ASSESSMENT UNDER CARE ACTIVITY FOR ESTIMATED NUTRITIONAL NEEDS. 1. CONTINUE TPN TO D18%, AA 4.25% AT 100 ML/HR AND LIPIDS 20%(240 ML) -THIS WILL PROVIDE PATIENT WITH 2428 KCAL, 102 GM OF PROTEIN 2. ENCOURAGE INCREASING PO INTAKE 3. CONTINUE BLAND/SOFT DIET TOLERATED WITH SUPPLEMENTS BROUGHT FROM HOME 4. CONTINUE RODRIGUEZ BID 5. RD WILL FOLLOW UP 2-3 DAYS, HIGH RISK ALEXEI JOHNSTON RD
--- NOTE | 2018-10-18 16:58 | NUR ---
PT WAS GIVEN PAIN MEDICATION NOW VIA IV PUSH.
--- NOTE | 2018-10-18 19:15 | NUR ---
ENDORSED PT TO LABORER POULTRY HATCHERY NURSE MEKHI FOR CONTINUITY OF CARE.
[2018-10-18] MEDS: DEXTROSE IV SCH ×4 (20:23)
[2018-10-18] MEDS: MULTIVITAMIN IV SCH ×4 (20:23)
[2018-10-18] MEDS: AMINO ACIDS 8.5% IV SCH ×4 (20:23)
[2018-10-18] MEDS: [UNRECOGNIZED DRUG - OTHER] IV SCH ×4 (20:23)
--- NOTE | 2018-10-18 23:00 | NUR ---
REPORT RECEIVED FROM MEKHI CAPPS. PT IN STABLE CONDITION.
--- NOTE | 2018-10-18 23:45 | NUR ---
DILAUDID GIVEN FOR 10/10 GENERALIZED PAIN. PT TOLERATED WELL. BS 109. NO INSULIN COVERAGE NEEDED.
[2018-10-19] VITALS: BP 95/47
[2018-10-19] MEDS: HYDROmorphone PFS 2 MG/ML SYR IVP PRN ×11 (01:27→22:51)
--- NOTE | 2018-10-19 01:27 | NUR ---
DILAUDID GIVEN FOR 10/10 GENERALIZED PAIN. PT TOLERATED WELL.
--- NOTE | 2018-10-19 03:27 | NUR ---
DILAUDID GIVEN FOR 10/10 GENERAL PAIN. PT TOLERATED WELL.
--- NOTE | 2018-10-19 05:44 | NUR ---
DILAUDID GIVEN FOR 10/10 GENERALIZED PAIN. PT TOLERATED WELL. BS 100. NO INSULIN COVERAGE NEEDED.
[2018-10-19] MEDS: BLOOD GLUCOSE MONITORING 1 DEV DEV FS SCH ×3 (05:48→18:55)
--- NOTE | 2018-10-19 06:45 | NUR ---
PT SLEEPING BUT AROUSABLE. NO S/S OF DISTRESS NOTED. PT IN STABLE CONDITION.
--- NOTE | 2018-10-19 07:15 | NUR ---
RECEIVED REPORT FROM SENIOR INTEGRATION ARCHITECT NURSE MUNIRA FOR CONTINUITY OF CARE. PT IN STABLE CONDITION. RESPIRATIONS EVEN AND UNLABORED, ROOM AIR. PICC LINE INTACT AND PATENT. SAFETY MEASURES IN PLACE. BED IN LOW POSITION. BED ALARM ON. CALL LIGHT AT BEDSIDE. WILL CONTINUE TO MONITOR.
[2018-10-19 08:00] VITALS: BP 110/54
[2018-10-19 08:01] LABS: ALBUMIN 1.4 g/dL (3.4-5.0); ANION GAP 9.2 (8-16); CARBON DIOXIDE 30.4 mmol/L (21-32); CREATININE 0.8 mg/dL (0.7-1.3); POTASSIUM 3.6 mmol/L (3.5-5.1); TOTAL BILIRUBIN 0.1 mg/dL (0.0-1.0)
[2018-10-19 08:18] LABS: EOSINOPHILS # (AUTO) 0.4 K/uL (0-0.4); LYMPHOCYTES # (AUTO) 1.4 K/uL (2.0-11.5); MONOCYTES # (AUTO) 0.8 K/uL (0.8-1.0); WHITE BLOOD COUNT (AUTO) 5.3 K/uL (4.8-10.8)
[2018-10-19] MEDS: DOCUSATE SODIUM 100 MG GELCAP PO SCH ×2 (08:20→08:37)
[2018-10-19] MEDS: DULoxetine 30 MG CAPDR PO SCH ×2 (08:21→08:37)
[2018-10-19 08:37] LABS: BASOPHILS # (AUTO) 0.1 K/uL (0.00-0.22); BASOPHILS % (AUTO) 1.2 % (0.0-2.0); EOSINOPHILS % (AUTO) 7.1 % (0.0-4.0); LYMPHOCYTES % (AUTO) 26.7 % (20.5-51.1); MEAN CORPUSCULAR HEMOGLOBIN 29 pg (27-31); MEAN CORPUSCULAR HGB CONC 33 g/dL (33-37); MONOCYTES % (AUTO) 14.4 % (1.7-9.3); NEUTROPHILS # (AUTO) 2.7 K/uL (1.8-7.7); NEUTROPHILS % (AUTO) 50.6 % (42.2-75.2); PLATELET COUNT (AUTO) 388 K/uL (140-450); RED BLOOD CELL COUNT(AUTO) 2.33 MIL/uL (4.20-6.10); RED CELL DISTRIBUTION WIDTH 16.9 % (11.6-13.7)
--- NOTE | 2018-10-19 09:01 | NUR ---
GAVE ORDERED DUE MEDICATIONS. PT TOLERATED WELL. RESPIRATIONS EVEN AND UNLABORED. BED IN LOW POSITION. BED ALARM ON. CALL LIGHT AT BEDSIDE. PT IN STABLE CONDITION.
[2018-10-19 09:20] LABS: HEMOGLOBIN 6.8 g/dL (12.0-18.0)
--- NOTE | 2018-10-19 11:30 | NUR ---
PT TALKING ON PHONE WITH FAMILY AT THIS TIME. RESPIRATIONS EVEN AND UNLABORED. BED IN LOW POSITION. BED ALARM ON. CALL LIGHT AT BEDSIDE. PT IN STABLE CONDITION.
--- NOTE | 2018-10-19 13:33 | NUR ---
PT LYING IN BED SLEEP AT THIS TIME. RESPIRATIONS EVEN AND UNLABORED. BED IN LOW POSITION. BED ALARM ON. CALL LIGHT AT BEDSIDE. PT IN STABLE CONDITION.
--- NOTE | 2018-10-19 14:15 | NUR ---
SPOKE WITH EVANGELINA FROM BLOOD BANK, EVANGELINA STATED IT WILL TAKE ABOUT 1-2 HRS FROM NOW FOR CROSS MATCHING IN THE [facility] BEFORE WE CAN TRANSFUSE THE 1 UNIT PRBC ORDERED. CLEMENTE -GÉNESIS ASSIGNED MADE AWARE. PAGED DR. CAICEDO REGARDING THE BLOOD TRANSFUSION SITUATION. AWAITING FOR CALL BACK.
--- NOTE | 2018-10-19 14:35 | NUR ---
ADMINISTERED 2 MG DILAUDID IV FOR PATIENT 9/10 PAIN IN BILATERAL LOWER EXTREMITIES. EMPTIED 400 ML YELLOW, CLEAR URINE FROM URINAL. RESUMED IV FLUID. PATIENT TOLERATED MEDS WELL. RESPIRATIONS ARE 16 EVEN AND UNLABORED, NO SIGNS OF DISTRESS ON RA. BED IS LOW, CALL LIGHT IS IN REACH.
--- NOTE | 2018-10-19 15:24 | NUR ---
PT LYING IN BED WATCHING TV. RESPIRATIONS EVEN AND UNLABORED. BED IN LOW POSITION. BED ALARM ON. CALL LIGHT AT BEDSIDE. PT IN STABLE CONDITION.
[2018-10-19 16:00] VITALS: BP 107/61
[2018-10-19] MEDS: NACL 0.9% 1,000 ML IV SCH (16:09)
--- NOTE | 2018-10-19 16:53 | NUR ---
PER DR CAICEDO LEFT A MESSAGE FOR PEER TO PEER DISCUSSION AWAITING A CALL BACK. SPOKE WITH HAYLEE PERALTA FROM [facility] STILL WAITING FOR MD'S DISCUSSION.
--- NOTE | 2018-10-19 16:55 | NUR ---
BLOOD TRANSFUSION 1 UNIT STARTED AT THIS TIME. PT IN STABLE CONDITION.
--- NOTE | 2018-10-19 17:25 | NUR ---
DR. CAICEDO CALLED, STATED THAT PT'S DRESSING CHANGE UNDER ANESTHESIA WILL BE SCHEDULED BETWEEN 9-10 PM TONIGHT. SPOKE WITH PT AND STATED THAT HE IS AGREEABLE TO IT. PT KEPT ON NPO. NOTIFIED DR. CAICEDO REGARDING PT'S DECISION. ARELI ASSIGNED MADE AWARE.
--- NOTE | 2018-10-19 17:45 | NUR ---
PT DISCUSSED WITH DR. CAICEDO TO HAVE DRESSING CHANGE ON Thursday10/21/2018 MORNING DUE TO PT WANT TO EAT.
--- NOTE | 2018-10-19 17:54 | NUR ---
FNS TO RETRIEVE FOOD PLATE FOR PT.
--- NOTE | 2018-10-19 19:19 | NUR ---
ENDORSED BLOOD TRANSFUSION AND BLOOD SUGAR CHECK TO ACCOUNT MANAGEMENT SPECIALIST NURSE LEONORA FOR CONTINUITY OF CARE.
--- NOTE | 2018-10-19 19:20 | NUR ---
GAVE REPORT TO FOOD CASHIER NURSE LEONORA FOR CONTINUITY OF CARE. PT IN STABLE CONDITION.
--- NOTE | 2018-10-19 19:30 | NUR ---
RECEIVED BEDSIDE REPORT FROM DAY RN. PT IS AAOX4 ON ROOM AIR. RESPIRATIONS ARE EQUAL AND UNLABORED. PT HAS 20% BURN ON UPPER BODY. HAS R BKA. SACRAL ULCER DRESSING CHANGE DONE BY DR CAICEDO ONLY UNDER ANESTHESIA WAS RESCHEDULED FOR THURSDAY PER RN D/T LOW HGB. PT WITH COLOSTOMY BAG. R PICC LINE DOUBLE LUMEN. RECEIVING FIRST OUT OF 2 BAGS OF BLOOD. ON CONTACT ISOLATION FOR MDRO OF THE WOUND. POC OF CARE DISCUSSED WITH PT. WILL ROUND FREQUENTLY.
--- NOTE | 2018-10-19 21:15 | NUR ---
SECOND BAG OF BLOOD STARTED VERIFIED WITH CHARGE NURSE. PRE TRANSFUSION VS: HR 106, 18, 97.6 99/56 NO PAIN. WILL CONTINUE TO MONITOR. MOTHER IS AT BEDSIDE.
--- NOTE | 2018-10-19 21:40 | NUR ---
FIRST BAG OF BLOOD COMPLETE. PT WITH NO S/S OF DISTRESS OR REACTION. VITAL SIGNS ARE STABLE. MOTHER IS AT BEDSIDE. WILL IMPROVEMENT ENGINEER NEXT BAG Addendum: 10/19/18 at 2147 by Geeta Avila RN WRONG TIME [id number]
--- NOTE | 2018-10-19 21:45 | NUR ---
NO S/S OF REACTION. VITAL SIGNS REMAIN STABLE. CALL LIGHT IS WITHIN REACH. MOTHER IS AT BEDSIDE. WILL CONTINUE TO MONITOR.
--- NOTE | 2018-10-19 23:45 | NUR ---
SECOND UNIT OF BLOOD COMPLETE. NO S/S OF REACTION. POST TRANS VS: 101/57 HR 110 18 98.3 DENIES PAIN. CALL LIGHT IS WITHIN REACH. WILL CONTINUE TO MONITOR.
[2018-10-20] VITALS: BP 101/57
[2018-10-20] MEDS: DEXTROSE IV SCH ×8 (00:30→19:47)
[2018-10-20] MEDS: AMINO ACIDS 8.5% IV SCH ×8 (00:30→19:47)
[2018-10-20] MEDS: MULTIVITAMIN IV SCH ×8 (00:30→19:47)
[2018-10-20] MEDS: [UNRECOGNIZED DRUG - OTHER] IV SCH ×8 (00:30→19:47)
--- NOTE | 2018-10-20 00:30 | NUR ---
TPN STARTED AT THIS TIME. WAS HELD D/T PT RECEIVING 2 UNITS OF BLOOD. BLOOD SUGAR IS 85. CALL LIGHT IS WITHIN REACH. WILL CONTINUE TO MONITOR.
[2018-10-20] MEDS: BLOOD GLUCOSE MONITORING 1 DEV DEV FS SCH ×5 (00:39→23:46)
[2018-10-20] MEDS: HYDROmorphone PFS 2 MG/ML SYR IVP PRN ×11 (00:53→23:08)
--- NOTE | 2018-10-20 01:11 | NUR ---
PATIENT IS SITTING UP EATING [place] FOOD. NO S/S OF DISTRESS. CALL LIGHT IS WITHIN REACH. WILL CONTINUE TO MONITOR.
--- NOTE | 2018-10-20 02:54 | NUR ---
ADMINISTERED IVP DILAUDID FOR 10/10 GENERAL PAIN. PT TOLERATED WELL.CALL LIGHT IS WITHIN REACH
--- NOTE | 2018-10-20 05:13 | NUR ---
ADMINISTERED IVP DILAUDID FOR 10/10 GENERAL PAIN. PT TOLERATED WELL. CALL LIGHT IS WITHIN REACH
--- NOTE | 2018-10-20 07:10 | NUR ---
ADMINISTERED IVP DILAUDID FOR 10/10 GENERAL PAIN. PT TOLERATED WELL. CALL LIGHT IS WITHIN REACH
--- NOTE | 2018-10-20 07:28 | NUR ---
GAVE BEDSIDE REPORT TO DAY RN. PT ENDORSED IN STABLE CONDITION.
--- NOTE | 2018-10-20 07:29 | NUR ---
RECEIVED REPORT FROM FINE GRADE OPERATOR NURSE LEONORA FOR CONTINUITY OF CARE. PT IN STABLE CONDITION. RESPIRATIONS EVEN AND UNLABORED, ROOM AIR. PICC LINE INTACT AND PATENT. SAFETY MEASURES IN PLACE. BED IN LOW POSITION. BED ALARM ON. CALL LIGHT AT BEDSIDE. WILL CONTINUE TO MONITOR.
[2018-10-20 08:00] VITALS: BP 124/69
[2018-10-20 08:09] LABS: BASOPHILS % (AUTO) 0.4 % (0.0-2.0); EOSINOPHILS # (AUTO) 0.3 K/uL (0-0.4); EOSINOPHILS % (AUTO) 4.5 % (0.0-4.0); HEMATOCRIT 27.1 % (36-52); HEMOGLOBIN 9.1 g/dL (12.0-18.0); LYMPHOCYTES # (AUTO) 1.2 K/uL (2.0-11.5); LYMPHOCYTES % (AUTO) 17.2 % (20.5-51.1); MEAN CORPUSCULAR HEMOGLOBIN 30 pg (27-31); MEAN CORPUSCULAR HGB CONC 33 g/dL (33-37); MEAN CORPUSCULAR VOLUME 88.2 fL (80-94); MONOCYTES # (AUTO) 0.9 K/uL (0.8-1.0); MONOCYTES % (AUTO) 12.7 % (1.7-9.3); NEUTROPHILS # (AUTO) 4.7 K/uL (1.8-7.7); NEUTROPHILS % (AUTO) 65.2 % (42.2-75.2); PLATELET COUNT (AUTO) 433 K/uL (140-450); RED BLOOD CELL COUNT(AUTO) 3.07 MIL/uL (4.20-6.10); RED CELL DISTRIBUTION WIDTH 17.1 % (11.6-13.7); WHITE BLOOD COUNT (AUTO) 7.2 K/uL (4.8-10.8)
[2018-10-20] MEDS: DOCUSATE SODIUM 100 MG GELCAP PO SCH (09:27)
--- NOTE | 2018-10-20 09:27 | NUR ---
GAVE ORDERED DUE MEDICATIONS. PT TOLERATED WELL. RESPIRATIONS EVEN AND UNLABORED. BED IN LOW POSITION. BED ALARM ON. CALL LIGHT AT BEDSIDE. WILL CONTINUE TO MONITOR.
[2018-10-20] MEDS: DULoxetine 30 MG CAPDR PO SCH (09:28)
[2018-10-20 10:16] LABS: POTASSIUM 3.8 mmol/L (3.5-5.1)
[2018-10-20 10:17] LABS: ANION GAP 12.6 (8-16); CARBON DIOXIDE 30.2 mmol/L (21-32); CREATININE 0.9 mg/dL (0.7-1.3); TOTAL BILIRUBIN 0.4 mg/dL (0.0-1.0)
[2018-10-20 10:18] LABS: ALBUMIN 1.6 g/dL (3.4-5.0)
--- NOTE | 2018-10-20 11:16 | NUR ---
CALL MADE TO ANTHONY AT [facility] [phone] NOTIFIED HER THAT OUR DR TRIED TO REACH THE PLASTIC SURGEON DR BERNSTEIN [phone] PER ANTHONY WILL CHECK WITH DR SHEETS AND CALL BACK
--- NOTE | 2018-10-20 11:48 | NUR ---
GAVE WASH CLOTHS PER PT REQUEST. PT IN STABLE CONDITION. RESPIRATIONS EVEN AND UNLABORED. BED IN LOW POSITION. CALL LIGHT AT BEDSIDE. BED ALARM ON. WILL CONTINUE TO MONITOR.
--- NOTE | 2018-10-20 12:00 | NUR ---
NOTIFIED DR CAICEDO ON TEXT THAT [facility] WANTED PEER TO PEER DISCUSSION .CM TO FOLLOW
--- NOTE | 2018-10-20 13:33 | NUR ---
PT LYING IN BED SLEEPING AT THIS TIME. RESPIRATIONS EVEN AND UNLABORED. BED IN LOW POSITION. CALL LIGHT AT BEDSIDE. WILL CONTINUE TO MONITOR.
[2018-10-20] MEDS: MAG SULF 2000 MG/WATER PREMIX 50 ML IV PRN (13:49)
--- NOTE | 2018-10-20 15:16 | NUR ---
PT LYING IN BED WATCHING TV IN STABLE CONDITION. RESPIRATIONS EVEN AND UNLABORED. BED IN LOW POSITION. CALL LIGHT AT BEDSIDE. BED ALARM ON. WILL CONTINUE TO MONITOR.
[2018-10-20 16:00] VITALS: BP 109/72
[2018-10-20] MEDS: NACL 0.9% 1,000 ML IV SCH (16:19)
--- NOTE | 2018-10-20 18:00 | NUR ---
PT REFUSED TO TURN THROUGHOUT SHIFT.
[2018-10-20] MEDS: fentaNYL 0.05 MG/HR PATCH TD SCH (18:18)
--- NOTE | 2018-10-20 19:32 | NUR ---
GAVE REPORT TO DIRECTOR FOUNDATION NURSE FOR CONTINUITY OF CARE. PT IN STABLE CONDITION.
--- NOTE | 2018-10-20 19:33 | NUR ---
RECEIVED BEDSIDE REPORT FROM AM SHIFT NURSE. PT IS AAOX4 ON ROOM AIR, WATCHING TV. W/ MOTHER AT BEDSIDE. RESPIRATIONS ARE EQUAL AND UNLABORED. PT HAS 20% BURN ON UPPER BODY. HAS R BKA. SACRAL ULCER DRESSING CHANGE DONE BY DR CAICEDO ONLY UNDER ANESTHESIA WAS RESCHEDULED FOR THURSDAY(TOMORROW) PER PREVIOUS RN D/T LOW HGB. PT WITH COLOSTOMY BAG. R PICC LINE DOUBLE LUMEN W/ TPN INFUSING WELL. PATENT. W/ NS AT 42ML/HR. ON CONTACT ISOLATION FOR MDRO OF THE WOUND. POC OF CARE DISCUSSED WITH PT. PLACED IN LOW BED POSITION. CALL LIGHT WITHIN REACH.
[2018-10-20 20:00] VITALS: BP 101/52
--- NOTE | 2018-10-20 20:01 | NUR ---
PT'S VITAL SIGNS TAKEN- WNL ; OFFERED PT TO BE TURNED; AND TO CHECK ON COLOSTOMY BAG. PT REFUSED
--- NOTE | 2018-10-20 20:24 | NUR ---
PT C/O 11/18 PAIN; DILAUDID GIVEN. WILL MONITOR FOR ADVERSE EFFECTS. WILL REASSESS LATER
--- NOTE | 2018-10-20 21:15 | NUR ---
INFORMED PT THAT HE WILL BE NPO POST MIDNIGHT FOR HIS DRESSING AT THE OR; AND THAT X-RAY WILL BE HERE ANYTIME ORDERED BY DR. CAICEDO.
--- NOTE | 2018-10-20 21:26 | NUR ---
CHEST X-RAY DONE PT TOLERATED WELL
[2018-10-21] MEDS: HYDROmorphone PFS 2 MG/ML SYR IVP PRN ×10 (01:10→22:32)
[2018-10-21 04:00] VITALS: BP 101/54
[2018-10-21] MEDS: BLOOD GLUCOSE MONITORING 1 DEV DEV FS SCH ×4 (05:35→23:08)
[2018-10-21 07:37] LABS: BASOPHILS % (AUTO) 0.5 % (0.0-2.0); EOSINOPHILS # (AUTO) 0.4 K/uL (0-0.4); EOSINOPHILS % (AUTO) 6.1 % (0.0-4.0); HEMATOCRIT 28.3 % (36-52); HEMOGLOBIN 9.3 g/dL (12.0-18.0); LYMPHOCYTES # (AUTO) 1.5 K/uL (2.0-11.5); LYMPHOCYTES % (AUTO) 21.9 % (20.5-51.1); MEAN CORPUSCULAR HEMOGLOBIN 29 pg (27-31); MEAN CORPUSCULAR HGB CONC 33 g/dL (33-37); MEAN CORPUSCULAR VOLUME 88.8 fL (80-94); MONOCYTES # (AUTO) 0.9 K/uL (0.8-1.0); NEUTROPHILS % (AUTO) 58.5 % (42.2-75.2); PLATELET COUNT (AUTO) 447 K/uL (140-450); RED BLOOD CELL COUNT(AUTO) 3.19 MIL/uL (4.20-6.10); RED CELL DISTRIBUTION WIDTH 16.9 % (11.6-13.7); WHITE BLOOD COUNT (AUTO) 6.8 K/uL (4.8-10.8)
[2018-10-21 07:42] LABS: ALBUMIN 1.6 g/dL (3.4-5.0); ANION GAP 6.3 (8-16); CARBON DIOXIDE 31.7 mmol/L (21-32); CREATININE 0.8 mg/dL (0.7-1.3); TOTAL BILIRUBIN 0.2 mg/dL (0.0-1.0)
[2018-10-21 07:46] LABS: PHOSPHORUS 4.9 mg/dL (2.5-4.9)
--- NOTE | 2018-10-21 07:57 | NUR ---
RECEIVED BED SIDE REPORT FROM EMPLOYMENT PROGRAMS ANALYST RN. PT A/O X4. VS STABLE ON RA IN NO RESP DISTRESS. LUNG SOUNDS CLEAR. PT NPO AFTER MIDNIGHT, SIGN POSTED OUTSIDE. DRESSING CHANGE TO BE DONE UNDER ANESTHESIA TODAY AT 1000. CONSENT FORM SIGNED, CXR COMPLETED, AND OR CHECKLIST COMPLETED BY EMPLOYMENT PROGRAMS ANALYST RN MIKE. PT HAS COLOSTOMY, NOT FULL, SHOWING LIGHT BROWN BM. RIGHT PICC LINE DOUBLE LUMEN RUNNING TPN AT 100CC/HR AND NS AT 42CC/HR. PT STATES HE HAS 9/10 NECK PAIN. DILAUDID GIVEN BY EMPLOYMENT PROGRAMS ANALYST RN AROUND 0500. WILL GIVE PAIN MEDS PER MD ORDER. URINAL AT BEDSIDE. PT FALL RISK. SIGN POSTED OUTSIDE. BED ALARM ON. CALL LIGHT WITHIN REACH. PT ON CONTACT PRECAUTION WITH SIGN POSTED OUTSIDE. WILL CONTINUE TO MONITOR.
[2018-10-21] MEDS: DOCUSATE SODIUM 100 MG GELCAP PO SCH (08:32)
[2018-10-21] MEDS: DULoxetine 30 MG CAPDR PO SCH (08:32)
--- NOTE | 2018-10-21 08:37 | NUR ---
GAVE DILAUDID 2MG PER MD ORDER. BP PRIOR TO ADMINISTRATION 107/53, HR 97. GAVE AM MEDS WELL. PT TOLERATED WELL.
--- NOTE | 2018-10-21 10:59 | NUR ---
GAVE DILAUDID 2MG PER MD ORDER. BP PRIOR TO ADMINISTRATION WAS 107/62, HR 100. PT STATES HE HAS A 9/10 NECK PAIN. WILL CONTINUE TO MONITOR.
--- NOTE | 2018-10-21 11:43 | NUR ---
PER DR CAICEDO HE SPOKE WITH [facility] DR Talamantes CALL MADE TO HAYLEE LEFT A MESSAGE . RECEIVED A CALL FROM DR SHEETS'S PLASTIC SURGEON OFFICE SPOKE WITH [facility] DIRECTOR PEDIATRIC OFFICE SINCE DR SHEETS IS BUSY ALL DAY SHE WILL ASK HIM AND WILL CALL ME FOR THE UPDATE.
--- NOTE | 2018-10-21 12:06 | NUR ---
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 BLOOD SUGAR 93. PT TOOK TPN AND TPN PUMP. PT SL.
[2018-10-21] MEDS ORDERED: ESMOLOL 100 MG/10 ML VIAL IV ONE (12:29)
[2018-10-21] MEDS ORDERED: KETAMINE 500 MG/5 ML VIAL ONE (12:31)
[2018-10-21] MEDS ORDERED: MIDAZOLAM 2 MG/2 ML VIAL ONE (12:31)
[2018-10-21] MEDS ORDERED: ONDANSETRON 4 MG/2 ML VIAL IVP PRN (13:05)
[2018-10-21] MEDS ORDERED: HYDROmorphone 1 MG/ML AMP IVP PRN (13:05)
--- NOTE | 2018-10-21 13:47 | NUR ---
PT CAME BACK FROM OR. VS STABLE. PT STATES HE HAS 8/10 NECK AND BACK PAIN. WILL GIVE DILAUDID PER MD ORDER.
[2018-10-21] MEDS: NACL 0.9% 1,000 ML IV SCH (15:27)
[2018-10-21 16:06] VITALS: BP 115/66
--- NOTE | 2018-10-21 18:52 | NUR ---
GAVE BEDSIDE REPORT TO PROCUREMENT SPECIALIST RN. PT STABLE.
--- NOTE | 2018-10-21 19:10 | NUR ---
Received endorsement from AM shift RN; patient A/Ox4, able to make needs known, Khmer speaking, bedbound. Patient is talking with mother Saray; introduced self, updated board. No SOB or distress noted, on room air. On contact precautions for MDRO wounds; observed and maintained. IV site on right upper arm PICC line, double lumen, running TPN at 100mL/hr and NS running at 42mL/hr. 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 Bed in the lowest position, call light within reach. Initial assessment done. Will continue to monitor.
[2018-10-21] MEDS: [UNRECOGNIZED DRUG - OTHER] IV SCH ×4 (19:44)
[2018-10-21] MEDS: DEXTROSE IV SCH ×4 (19:44)
[2018-10-21] MEDS: AMINO ACIDS 8.5% IV SCH ×4 (19:44)
[2018-10-21] MEDS: MULTIVITAMIN IV SCH ×4 (19:44)
--- NOTE | 2018-10-21 21:20 | NUR ---
Due meds given, tolerated well. Addendum: 10/21/18 at 2142 by Ketan Montero RN Pain med administered and TPN replenished.
--- NOTE | 2018-10-21 23:35 | NUR ---
Vitals taken, no distress noted.
[2018-10-22] VITALS: BP 101/53
--- NOTE | 2018-10-22 00:20 | NUR ---
Patient refusing wound care and repositioning.
[2018-10-22] MEDS: HYDROmorphone PFS 2 MG/ML SYR IVP PRN ×9 (01:00→19:01)
--- NOTE | 2018-10-22 01:02 | NUR ---
Rounds done; patient is watching TV; Dilaudid administered at this time for 8/10 pain.
--- NOTE | 2018-10-22 03:40 | NUR ---
Checks made; patient watching TV, no distress noted.
[2018-10-22] MEDS: BLOOD GLUCOSE MONITORING 1 DEV DEV FS SCH ×4 (05:43→23:57)
--- NOTE | 2018-10-22 06:05 | NUR ---
Vitals stable, due meds given. Will endorse to AM shift RN for continuity of care.
--- NOTE | 2018-10-22 07:30 | NUR ---
PT RECEIVED FROM NIGHT RN. PT IN BED AAOX4. NO SIGNS OF ACUTE DISTRESS AT THIS TIME. WILL CONTINUE TO ASSESS FOR CHANGES IN CONDITION.
[2018-10-22 08:00] VITALS: BP 103/55
[2018-10-22] MEDS: DOCUSATE SODIUM 100 MG GELCAP PO SCH (08:05)
[2018-10-22] MEDS: DULoxetine 30 MG CAPDR PO SCH (08:05)
--- NOTE | 2018-10-22 08:20 | NUR ---
RECEIVED REPORT FROM GÉNESIS STOVALL. PATIENT RESTING IN BED, NO SIGNS OF DISTRESS ON RA. PATIENT RECENTLY MEDICATED FROM PAIN. PAIN IS CHRONIC DUE TO PREEXISTING BILATERAL LOWER EXTREMITY WOUNDS RELATED TO INFECTED SKIN GRAFTS. TPN IS RUNNING AT 100 ML/HOUR, AND IV FLUID IS RUNNING AT 42ML/HR TO DOUBLE LUMEN PICC LINE IN RIGHT UPPER EXTREMITY. BED IS LOW, CALL LIGHT IS IN REACH. WILL CONTINUE TO MONITOR.
[2018-10-22 09:37] LABS: BASOPHILS % (AUTO) 0.7 % (0.0-2.0); EOSINOPHILS # (AUTO) 0.3 K/uL (0-0.4); EOSINOPHILS % (AUTO) 4.4 % (0.0-4.0); HEMATOCRIT 26.6 % (36-52); HEMOGLOBIN 8.8 g/dL (12.0-18.0); LYMPHOCYTES # (AUTO) 1.3 K/uL (2.0-11.5); LYMPHOCYTES % (AUTO) 20.2 % (20.5-51.1); MEAN CORPUSCULAR HEMOGLOBIN 29 pg (27-31); MEAN CORPUSCULAR HGB CONC 33 g/dL (33-37); MEAN CORPUSCULAR VOLUME 89.4 fL (80-94); MONOCYTES # (AUTO) 1.1 K/uL (0.8-1.0); MONOCYTES % (AUTO) 16.7 % (1.7-9.3); NEUTROPHILS # (AUTO) 3.7 K/uL (1.8-7.7); PLATELET COUNT (AUTO) 480 K/uL (140-450); RED BLOOD CELL COUNT(AUTO) 2.98 MIL/uL (4.20-6.10); RED CELL DISTRIBUTION WIDTH 16.8 % (11.6-13.7); WHITE BLOOD COUNT (AUTO) 6.4 K/uL (4.8-10.8)
--- NOTE | 2018-10-22 10:28 | NUR ---
CALLED DR CARLOS'S(PLASTIC SURGEON) OFFICE [phone] SPOKE WITH MAURICIO THE CLINICAL TRIALS MANAGER STATED DR CARLOS SPOKE WITH DR CAICEDO AND DR CARLOS IS NOT ACCEPTING THE PT. CALLED VANIA SPOKE WITH [facility] THEY ARE NOT ACCEPTING THE PATIENT BECAUSE OF NO OR AVAILABLE TO CHANGE A DRESSING WITH ANESTHESIA.
--- NOTE | 2018-10-22 11:02 | NUR ---
ADMINISTERED 2MG DILAUDID IV FOR 10/10 PAIN IN BILATERAL LOWER EXTREMITIES. RESPIRATIONS ARE EVEN AND UNLABORED AT 16 PER MINUTE. PATIENT DOES NOT WANT TO BE TURNED AT THIS TIME. EDUCATED PATIENT ON BENEFITS OF TURNING AND RISKS ASSOCIATED WITH NOT TURNING. PATIENT VERBALIZED UNDERSTANDING BUT SAYS IT HURTS TOO MUCH TO TURN. ENCOURAGED PATIENT TO DRINK VITAMIN DRINK TO PROMOTE WOUND HEALING. PATIENT VERBALIZED UNDERSTANDING. PATIENT STATED THAT HE WILL SIP THE DRINK. EMPTIED 350 ML CLEAR YELLOW URINE FROM URINAL. COLOSTOMY BAG DOES NOT NEED CHANGING OR GAS EXPRESSION. BED IS LOW, CALL LIGHT IN REACH.
[2018-10-22 11:44] LABS: MAGNESIUM 1.8 mg/dL (1.8-2.4); PHOSPHORUS 4.9 mg/dL (2.5-4.9)
[2018-10-22 11:55] LABS: ANION GAP 9.2 (8-16); CARBON DIOXIDE 29.4 mmol/L (21-32); CREATININE 0.9 mg/dL (0.7-1.3); POTASSIUM 3.6 mmol/L (3.5-5.1)
[2018-10-22 11:56] LABS: ALBUMIN 1.4 g/dL (3.4-5.0); TOTAL BILIRUBIN 0.2 mg/dL (0.0-1.0)
--- NOTE | 2018-10-22 13:03 | NUR ---
Administered 2mg IV Dilaudid for 10/10 pain in bilateral lower extremities. patient tolerated well. Respirations are even and unlabored at 18/minute. Bed is low, call light is in reach. normal saline is infusing at 42 ml/hr and TPN is infusing at 100ml/hr to double lumen PICC in right upper extremity. emptied 400 ml urine.
--- NOTE | 2018-10-22 13:18 | NUR ---
FAXED THE INQUIRY TO [facility] FOR TRANSFER SPOKE WITH [facility] , WILL DISCUSSED WITH CM AND WILL CALL BACK. PROVIDED DR WISEMAN AND DR CAICEDO CELL PHONE.
--- NOTE | 2018-10-22 14:55 | NUR ---
GAVE 2MG IV DILAUDID FOR 9/10 LOWER EXTREMITY PAIN. EMPTIED 400 ML URINE. PATIENT DOES NOT WANT TO BE TURNED AT THIS TIME. CALL LIGHT IN REACH. BED LOW. TPN AND IV FLUID RUNNING AT ORDERED RATES. ALL NEEDS MET AT THIS TIME.
[2018-10-22 16:00] VITALS: BP_SYST 104; BP_SYST 97; BP_DIAS 50; BP_DIAS 52
--- NOTE | 2018-10-22 16:50 | NUR ---
GAVE 2MG IV DILAUDID FOR 9/10 PAIN IN BILATERAL LOWER EXTREMITIES. BED LOW, CALL LIGHT IN REACH. VITALS STABLE. WILL CONTINUE TO MONITOR.
[2018-10-22] MEDS: NACL 0.9% 1,000 ML IV SCH (16:51)
--- NOTE | 2018-10-22 17:03 | NUR ---
ADMINISTERED 2MG DILAUDID IV FOR 10/10 LOWER EXTREMITY PAIN. RESPIRATIONS EVEN AND UNLABORED AT 15/MIN. VITALS STABLE. BLOOD PRESSURE IS LOW NORMAL AT 97/50. BED IS LOW CALL LIGHT IN REACH. PATIENT DOES NOT WANT TO BE TURNED AT THIS TIME.
--- NOTE | 2018-10-22 19:05 | NUR ---
GAVE 2MG IV DILAUDID FOR 9/10 PAIN IN BILATERAL LOWER EXTREMITIES. ALL OTHER NEEDS MET.
--- NOTE | 2018-10-22 19:15 | NUR ---
GAVE REPORT TO ELECTRICIAN ASSISTANT RN, KEESHA. ENDORSING PATIENT IN STABLE CONDITION.
--- NOTE | 2018-10-22 19:17 | NUR ---
RECEIVED REPORT FROM DAY SHIFT NURSESAIMA PATIENT, A&Ox4, SITTING IN BED, EATING, PICC LINE R.UPPER ARM, DOUBLE LUMEN, INTACT, ON ROOM AIR, SKIN GRAFT ON R. ARM, MULTIPLE WOUNDS S/P GONZALES ON BILATERAL LEGS AND HIPS, COLOSTOMY BAG, URINAL AT BEDSIDE, NO PAIN NOTED, CONTACT ISOLATION, BED ON LOW POSITION, CALL LIGHT WITHIN REACH, WILL CONTINUE TO MONITOR.
--- NOTE | 2018-10-22 20:10 | NUR ---
NIC FROM [facility] CALLED AND SAID THERE IS A BED AVAILABLE FOR PT TONIGHT. BUT NEED THE ATTENDING DR. GREEN TO BE THE ONE TO CALL THEIR CENTER TO GIVE INFORMATION TO THE ACCEPTING DR Vinita LUCERO GAVE THE TRANSFER CENTER PHONE .
--- NOTE | 2018-10-22 20:20 | NUR ---
CALLED EXCHANGE OF DR. GAO ,HAND TACKER FOR DR. GREEN AND GAVE THE TRANSFER CENTER TEL # OF [facility] FOR HIM TO CALL AND GIVE MEDICAL INFORMATION TO THE ACCEPTING DR Talamantes
[2018-10-22] MEDS: [UNRECOGNIZED DRUG - OTHER] IV SCH ×4 (20:49)
[2018-10-22] MEDS: AMINO ACIDS 8.5% IV SCH ×4 (20:49)
[2018-10-22] MEDS: DEXTROSE IV SCH ×4 (20:49)
[2018-10-22] MEDS: MULTIVITAMIN IV SCH ×4 (20:49)
--- NOTE | 2018-10-22 21:42 | NUR ---
PAGED AGAIN DR. GAO REGARDING PAIN MED OF PT FOR THE PREVIOUS WAS ALREADY DC'D. CALLED BACK WITH ORDER. ALSO HE SAID HE IS STILL WAITING FOR [facility] TO CALL HIM BACK.
[2018-10-22] MEDS: HYDROmorphone 1 MG/ML AMP IVP PRN ×2 (21:55→23:52)
--- NOTE | 2018-10-22 23:50 | NUR ---
CALLED [facility] TO FOLLOW UP THE BED AVAILABILITY. TALKED TO ROBERT AND HE SAID HE WILL CALL ME BACK FOR ANY UPDATE.
[2018-10-23] VITALS: BP 111/60
[2018-10-23] MEDS: HYDROmorphone 1 MG/ML AMP IVP PRN ×4 (02:19→08:11)
--- NOTE | 2018-10-23 02:20 | NUR ---
PT C/O PAIN 09/18. REQUESTED FOR PAIN MEDICATION. ADMINISTERED PRN IV PUSH PAIN MEDICATION ORDERED. WILL ENDORSE TO PRIMARY RN FOR REASSESSMENT.
--- NOTE | 2018-10-23 02:35 | NUR ---
JUSTO FROM [facility] CALLED TO GET MORE INFORMATION ABOUT THE PT . SHE SAID BED AVAILABILITY IS NOT GUARANTEED FOR THEY WILL STILL HAVE TO FOLLOW UP WITH THE MD HERE REGARDING SOME MORE INFORMATIONS TODAY .
--- NOTE | 2018-10-23 04:53 | NUR ---
CHECKED ON PT. PAIN IS 4/10 AFTER THE PAIN MED. WITH CHRONIC PAIN. WILL CONTINUE TO MONITOR.
[2018-10-23] MEDS: BLOOD GLUCOSE MONITORING 1 DEV DEV FS SCH ×4 (06:12→23:27)
--- NOTE | 2018-10-23 06:12 | NUR ---
PT STILL ON CONTINUOUS TPN. BLOOD SUGAR THIS AM 104. NO INSULIN NEEDED.
--- NOTE | 2018-10-23 07:22 | NUR ---
ENDORSED PATIENT IN STABLE CONDITION TO DAY NURSE FOR CONTINUITY OF CARE.
--- NOTE | 2018-10-23 07:23 | NUR ---
RECEIVED REPORT FROM AREA FIELD WORKER RNKEESHA. PATIENT IS RESTING IN BED, RECENTLY MEDICATED FOR PAIN. IV RUNNING AT 22 ML/HR, AND TPN RUNNING AT 100 ML/HR TO DOUBLE LUMEN PICC LINE IN RIGHT UPPER ARM. RESPIRATIONS ARE EVEN AND UNLABORED, NO SINGS OF DISTRESS ON RA. BED IS LOW, CALL LIGHT IS IN REACH.
[2018-10-23 08:00] VITALS: BP 102/62
[2018-10-23] MEDS: DOCUSATE SODIUM 100 MG GELCAP PO SCH ×2 (08:11→10:24)
[2018-10-23] MEDS: DULoxetine 30 MG CAPDR PO SCH ×2 (08:11→10:24)
[2018-10-23 08:21] LABS: BASOPHILS % (AUTO) 0.6 % (0.0-2.0); EOSINOPHILS # (AUTO) 0.2 K/uL (0-0.4); EOSINOPHILS % (AUTO) 3.8 % (0.0-4.0); HEMATOCRIT 25.7 % (36-52); HEMOGLOBIN 8.5 g/dL (12.0-18.0); LYMPHOCYTES # (AUTO) 1.4 K/uL (2.0-11.5); LYMPHOCYTES % (AUTO) 25.7 % (20.5-51.1); MEAN CORPUSCULAR HEMOGLOBIN 29 pg (27-31); MEAN CORPUSCULAR HGB CONC 33 g/dL (33-37); MEAN CORPUSCULAR VOLUME 88.7 fL (80-94); MONOCYTES # (AUTO) 0.9 K/uL (0.8-1.0); MONOCYTES % (AUTO) 16.9 % (1.7-9.3); NEUTROPHILS # (AUTO) 2.9 K/uL (1.8-7.7); PLATELET COUNT (AUTO) 522 K/uL (140-450); RED CELL DISTRIBUTION WIDTH 16.6 % (11.6-13.7); WHITE BLOOD COUNT (AUTO) 5.5 K/uL (4.8-10.8)
--- NOTE | 2018-10-23 08:43 | NUR ---
MITALI CALLED DR GAO FOR TO REPORT, [facility] CAN NOT ACCEPT THE PATIENT PER DR GAO VIA PHONE.
[2018-10-23 08:50] LABS: ALBUMIN 1.5 g/dL (3.4-5.0); CREATININE 0.9 mg/dL (0.7-1.3); TOTAL BILIRUBIN 0.2 mg/dL (0.0-1.0)
[2018-10-23 09:11] LABS: MAGNESIUM 1.9 mg/dL (1.8-2.4); PHOSPHORUS 4.9 mg/dL (2.5-4.9)
[2018-10-23] MEDS: HYDROmorphone PFS 2 MG/ML SYR IVP PRN ×7 (10:24→22:45)
--- NOTE | 2018-10-23 10:31 | NUR ---
ADMINISTERED 2MG DILAUDID IV, PATIENT C/O 10/10 PAIN IN LOWER EXTREMITIES. RESPIRATIONS ARE EVEN AND UNLABORED AT 16 PER MINUTE. PATIENT WAS NOT ABLE TO TAKE HIS 0900 MEDS DUE TO NAUSEA. PATIENT TOOK THOSE MEDS AT THIS TIME. TOLERATED WELL. PATIENT DOES NTO WANT TO BE TURNED AT THIS TIME. BED IS LOW, CALL LIGHT IS IN REACH. WILL CONTINUE TO MONITOR.
--- NOTE | 2018-10-23 12:25 | NUR ---
ADMINISTERED 2MG IV DILAUDID FOR 9/10 PAIN IN BILATERAL LOWER EXTREMITIES. GLUCOSE IS 102, NO INSULIN NEEDED. PATIENT TOLERATING TPN WELL. EMPTIED 400 ML OF CLEAR STRAW COLORED URINE FROM URINAL. PATIENT DOES NOT WANT TO BE TURNED AT THIS TIME. BED IS LOW. RESPIRATIONS ARE EVEN AND UNLABORED AT 15/MIN. CALL LIGHT IN REACH. WILL CONTINUE TO MONITOR.
--- NOTE | 2018-10-23 14:20 | NUR ---
DILAUDID 2MG IV GIVEN FOR PAIN IN BILATERAL LOWER EXTREMITIES. PATIENT DOES NOT WANT TO BE TURNED. BED LOW. CALL LIGHT IN REACH.
[2018-10-23] MEDS: NACL 0.9% 1,000 ML IV SCH (15:25)
[2018-10-23 16:00] VITALS: BP 100/53
--- NOTE | 2018-10-23 16:30 | NUR ---
DILAUDID 2MG IV GIVEN FOR PAIN IN BILATERAL LOWER EXTREMITIES. EMPTIED 400 ML OF URINE. PROVIDED ICE AND JUICE. PATIENT DOES NOT WANT TO BE TURNED. BED LOW. CALL LIGHT IN REACH.
--- NOTE | 2018-10-23 18:30 | NUR ---
DILAUDID 2MG IV GIVEN FOR PAIN IN BILATERAL LOWER EXTREMITIES. RESPIRATIONS EVEN AND UNLABORED AT 16/MIN. BED LOW. CALL LIGHT IN REACH.
--- NOTE | 2018-10-23 19:05 | NUR ---
REPORT RECEIVED FROM AM NURSE AT BEDSIDE. PT IN STABLE CONDITION. AAOX4. INTRODUCED SELF TO PT. BOARD UPDATED. NO COMPLAINTS OF PAIN. NO SOB. AFEBRILE. PT IS BEDBOUND. IV SITE R UA DOUBLE LUMEN RUNNING TPN@100ML/HR AND NS@42ML/HR PATENT AND INTACT. SKIN WARM, DRY, AND NOT INTACT DUE TO MULTIPLE WOUNDS. BED LOCKED IN LOW POSITION. CALL CONN WITHIN REACH. SAFETY PRECAUTION IN PLACE. ALL NEEDS MET AT THIS TIME.
[2018-10-23] MEDS: DEXTROSE IV SCH ×4 (19:36)
[2018-10-23] MEDS: MULTIVITAMIN IV SCH ×4 (19:36)
[2018-10-23] MEDS: AMINO ACIDS 8.5% IV SCH ×4 (19:36)
[2018-10-23] MEDS: [UNRECOGNIZED DRUG - OTHER] IV SCH ×4 (19:36)
--- NOTE | 2018-10-23 19:36 | NUR ---
TPN HUNG AND RUNNING. PT TOLERATING WELL.
--- NOTE | 2018-10-23 20:46 | NUR ---
DILAUDID GIVEN FOR 10/10 PAIN. PT TOLERATED WELL.
--- NOTE | 2018-10-23 22:45 | NUR ---
DILAUDID GIVEN FOR 10/10 PAIN. PT TOLERATED WELL.
--- NOTE | 2018-10-23 23:27 | NUR ---
BS 104. NO INSULIN COVERAGE NEEDED.
[2018-10-24] VITALS: BP 104/47
[2018-10-24] MEDS: HYDROmorphone PFS 2 MG/ML SYR IVP PRN ×10 (00:44→22:00)
--- NOTE | 2018-10-24 00:44 | NUR ---
DILAUDID GIVEN FOR 10/10 PAIN. PT TOLERATED WELL.
--- NOTE | 2018-10-24 03:31 | NUR ---
DILAUDID GIVEN FOR 10/10 PAIN. PT TOLERATED WELL.
--- NOTE | 2018-10-24 05:50 | NUR ---
DILAUDID GIVEN FOR 10/10 PAIN. PT TOLERATED WELL.
[2018-10-24] MEDS: BLOOD GLUCOSE MONITORING 1 DEV DEV FS SCH ×3 (05:59→18:53)
--- NOTE | 2018-10-24 05:59 | NUR ---
BS 94. NO INSULIN COVERAGE NEEDED.
[2018-10-24 06:23] LABS: BASOPHILS % (AUTO) 0.7 % (0.0-2.0); EOSINOPHILS # (AUTO) 0.3 K/uL (0-0.4); HEMOGLOBIN 8.2 g/dL (12.0-18.0); LYMPHOCYTES # (AUTO) 1.3 K/uL (2.0-11.5); LYMPHOCYTES % (AUTO) 23.9 % (20.5-51.1); MEAN CORPUSCULAR HEMOGLOBIN 29 pg (27-31); MEAN CORPUSCULAR HGB CONC 33 g/dL (33-37); MEAN CORPUSCULAR VOLUME 89.4 fL (80-94); MONOCYTES # (AUTO) 0.9 K/uL (0.8-1.0); NEUTROPHILS # (AUTO) 2.8 K/uL (1.8-7.7); NEUTROPHILS % (AUTO) 52.4 % (42.2-75.2); PLATELET COUNT (AUTO) 504 K/uL (140-450); WHITE BLOOD COUNT (AUTO) 5.4 K/uL (4.8-10.8)
--- NOTE | 2018-10-24 07:10 | NUR ---
PT RECEIVED FROM NIGHT GÉNESIS LOMBARDO. DOUBLE LUMEN PICC LINE TO MAE RUNNING TPN AT 100ML/HR AND NS AT 42 ML/HR. PT AAOX4. WILL CONTINUE TO ASSESS FOR CHANGES IN CONDITION. NO SIGNS OF ACUTE DISTRESS AT THIS TIME.
[2018-10-24 07:33] LABS: EOSINOPHILS % (AUTO) 5.9 % (0.0-4.0); MONOCYTES % (AUTO) 17.1 % (1.7-9.3)
[2018-10-24 07:49] LABS: ALBUMIN 1.5 g/dL (3.4-5.0); ANION GAP 9.2 (8-16); CARBON DIOXIDE 29.2 mmol/L (21-32); CREATININE 0.9 mg/dL (0.7-1.3); POTASSIUM 4.4 mmol/L (3.5-5.1); TOTAL BILIRUBIN 0.2 mg/dL (0.0-1.0)
[2018-10-24 07:54] LABS: MAGNESIUM 1.9 mg/dL (1.8-2.4)
[2018-10-24 08:00] VITALS: BP 109/54
--- NOTE | 2018-10-24 08:00 | NUR ---
PT REPORTED PAIN AND RECEIVED ORDERED DILAUDID. WILL REASSESS PAIN PER PROTOCOL. PT BREATHING EVEN AND UNLABORED. AAOX4.
[2018-10-24] MEDS: DULoxetine 30 MG CAPDR PO SCH (08:05)
[2018-10-24] MEDS: DOCUSATE SODIUM 100 MG GELCAP PO SCH (08:05)
--- NOTE | 2018-10-24 10:25 | NUR ---
PT REPORTED PAIN AND RECEIVED ORDERED DILAUDID. WILL REASSESS PAIN PER PROTOCOL. AAOX4, PT BREATHING EVEN AND UNLABORED. .
--- NOTE | 2018-10-24 12:11 | NUR ---
10/24/18 RD FOLLOW UP COMPLETED PLEASE REFER TO NUTRITION ASSESSMENT UNDER CARE ACTIVITY FOR ESTIMATED NUTRITIONAL NEEDS. 1. CONTINUE REGULAR DIET AND TPN D 18 AA4.25 AT 100 ML/HR WITH 240 ML 20% IL TOLERATED. PROVIDES 2404 KCAL AND 102 G PROTEIN, WHICH MEETS >75% ESTIMATED KCAL AND PROTEIN NEEDS. 2. CONTINUE RODRIGUEZ BID FOR WOUND HEALING SUPPORT 3. RD TO FOLLOW-UP 2-3 DAYS, HIGH RISK REINA JEWELL, RD
--- NOTE | 2018-10-24 12:30 | NUR ---
PT REPORTED PAIN AND RECEIVED ORDERED DILAUDID. PT BREATHING EVEN AND UNLABORED. AAOX4. WILL REASSESS PAIN PER PROTOCOL.
--- NOTE | 2018-10-24 12:35 | NUR ---
PT RECEIVED ORDERED DILAUDID FOR PAIN. PT REFUSED WOUND ASSESSMENT AND REPOSITIONING DESPITE EDUCATION. PT STATED HIS DOCTOR CHANGED HIS DRESSINGS ON THURSDAY. PT
[2018-10-24 16:00] VITALS: BP 103/51
--- NOTE | 2018-10-24 17:10 | NUR ---
PT RECEIVED FROM NIGHT GNÉESIS LOMBARDO. DOUBLE LUMEN PICC LINE TO RUE RUNNING TPN AT 100ML/HR AND NS AT 42 ML/HR. PT AAOX4. WILL CONTINUE TO ASSESS FOR CHANGES IN CONDITION. NO SIGNS OF ACUTE DISTRESS AT THIS TIME. Addendum: 10/24/18 at 1816 by Lea Mireles RN ENTERED AT WRONG TIME
--- NOTE | 2018-10-24 17:26 | NUR ---
PT REPORTED PAIN. PT RECEIVED ORDERED DILAUDID. AAOX4. NO SIGNS OF ACUTE DISTRESS AT THIS TIME. WILL REASSESS PAIN PER PROTOCOL.
--- NOTE | 2018-10-24 19:15 | NUR ---
PT ENDORSED TO NIGHT RNLEONORA. PT IN BED AAOX4. TNP RUNNING AT 100ML/HR TO DOUBLE LUMEN PICC LINE TO RUE. NO SIGNS OF ACUTE DISTRESS. BREATHING IS EVEN AND UNLABORED ON ROOM AIR.
--- NOTE | 2018-10-24 19:16 | NUR ---
REPORT BEDSIDE RECEIVED FROM DAY SHIFT NURSE. PT AAOX4. NO S/S OF SOB ON ROOM AIR. IV SITE R UA DOUBLE LUMEN RUNNING TPN@100ML/HR, PATENT, INTACT, AND AYSMPTOMATIC. PT IS BEDBOUND. SKIN WARM, DRY, AND NOT INTACT DUE TO MULTIPLE CHRONIC WOUNDS. BOARD UPDATED, POC DISCUSSED WITH PT. PT VERBALIZED UNDERSTANDING. BED IN LOW POSITION. CALL LIGHT WITHIN REACH. SAFETY PRECAUTION IN PLACE.
[2018-10-24] MEDS: AMINO ACIDS IV SCH ×4 (19:46)
[2018-10-24] MEDS: MULTIVITAMIN IV SCH ×4 (19:46)
[2018-10-24] MEDS: [UNRECOGNIZED DRUG - OTHER] IV SCH ×4 (19:46)
[2018-10-24] MEDS: DEXTROSE IV SCH ×4 (19:46)
--- NOTE | 2018-10-24 19:47 | NUR ---
PT C/O 09/18 BACK PAIN. GIVEN DILAUDID MD ORDERED. HANG NEW TPN @ 79.67ML/HR. PT TOLERATED WELL. WILL CONTINUE TO MONITOR.
--- NOTE | 2018-10-24 22:00 | NUR ---
PT C/O 11/18 PAIN. ADMINISTER DILAUDID MD ORDERED. PT TOLERATED WELL.
[2018-10-25] VITALS: BP 103/58
[2018-10-25] MEDS: BLOOD GLUCOSE MONITORING 1 DEV DEV FS SCH ×4 (00:03→18:18)
[2018-10-25] MEDS: HYDROmorphone PFS 2 MG/ML SYR IVP PRN ×11 (00:05→22:15)
--- NOTE | 2018-10-25 00:05 | NUR ---
PT C/O 11/18 PAIN. ADMINISTERED DILAUDID MD ORDERED. PT TOLERATED WELL.
--- NOTE | 2018-10-25 01:00 | NUR ---
PT REFUSED CHANGING POSITION, ASSESSING WOUND, AND TAKING PICTURE OF WOUND DESPITE EDUCATION.
--- NOTE | 2018-10-25 02:08 | NUR ---
PT C/O 11/18 PAIN. ADMINISTERED DILAUDID MD ORDERED. PT TOLERATED WELL.
--- NOTE | 2018-10-25 04:06 | NUR ---
PT C/O 11/18 PAIN. ADMINISTERED DILAUDID MD ORDERED. PT TOLERATED WELL.
--- NOTE | 2018-10-25 06:09 | NUR ---
BS CHECKED, 93. NO INSULIN COVERAGE NEEDED. PT C/O 11/18 PAIN. ADMINISTERED DILAUDID MD ORDERED. PT TOLERATED WELL.
--- NOTE | 2018-10-25 06:57 | NUR ---
PT IN BED. BREATHING EVEN AND UNLABORED. BED IN LOW POSITION. CALL LIGHT WITHIN REACH.
--- NOTE | 2018-10-25 07:07 | NUR ---
REPORT RECEIVED FROM METAL FABRICATING INSPECTOR NURSE AT BEDSIDE FOR CONTINUITY OF CARE. PT AAOX4. NO S/S OF SOB OR DISTRESS ON ROOM AIR. IV SITE R UA DOUBLE LUMEN RUNNING TPN@ 80ML/HR, PATENT, INTACT, AND ASYMPTOMATIC. PT MEDICATED FOR PAIN AT 0609. PT AWARE OF NEXT SCHEDULED DOSE. PT IS BEDBOUND. SKIN WARM, DRY, AND NOT INTACT DUE TO MULTIPLE CHRONIC WOUNDS. PATIENT HAS COLOSTOMY AND USES URINAL. BOARD UPDATED, PLAN OF CARE DISCUSSED WITH PT. PT VERBALIZED UNDERSTANDING. SAFETY AND ISOLATION PRECAUTIONS IN PLACE, BED IN LOW POSITION. CALL LIGHT WITHIN REACH. WILL CONTINUE TO MONITOR PATIENT.
[2018-10-25 07:09] LABS: BASOPHILS % (AUTO) 0.5 % (0.0-2.0); EOSINOPHILS # (AUTO) 0.3 K/uL (0-0.4); EOSINOPHILS % (AUTO) 5.2 % (0.0-4.0); HEMATOCRIT 26.2 % (36-52); HEMOGLOBIN 8.9 g/dL (12.0-18.0); LYMPHOCYTES # (AUTO) 1.8 K/uL (2.0-11.5); LYMPHOCYTES % (AUTO) 28.1 % (20.5-51.1); MEAN CORPUSCULAR HEMOGLOBIN 30 pg (27-31); MEAN CORPUSCULAR HGB CONC 34 g/dL (33-37); MEAN CORPUSCULAR VOLUME 89.2 fL (80-94); MONOCYTES # (AUTO) 0.8 K/uL (0.8-1.0); MONOCYTES % (AUTO) 12.1 % (1.7-9.3); NEUTROPHILS # (AUTO) 3.4 K/uL (1.8-7.7); NEUTROPHILS % (AUTO) 54.1 % (42.2-75.2); PLATELET COUNT (AUTO) 499 K/uL (140-450); RED BLOOD CELL COUNT(AUTO) 2.94 MIL/uL (4.20-6.10); RED CELL DISTRIBUTION WIDTH 16.5 % (11.6-13.7); WHITE BLOOD COUNT (AUTO) 6.3 K/uL (4.8-10.8)
[2018-10-25 07:18] LABS: ALBUMIN 1.6 g/dL (3.4-5.0); ANION GAP 9.7 (8-16); CARBON DIOXIDE 28.7 mmol/L (21-32); CREATININE 0.9 mg/dL (0.7-1.3); POTASSIUM 4.4 mmol/L (3.5-5.1); TOTAL BILIRUBIN 0.2 mg/dL (0.0-1.0)
[2018-10-25 07:29] LABS: MAGNESIUM 1.9 mg/dL (1.8-2.4); PHOSPHORUS 5.5 mg/dL (2.5-4.9)
[2018-10-25 07:33] VITALS: BP 100/56
[2018-10-25] MEDS: DULoxetine 30 MG CAPDR PO SCH (08:09)
[2018-10-25] MEDS: DOCUSATE SODIUM 100 MG GELCAP PO SCH (08:09)
--- NOTE | 2018-10-25 08:09 | NUR ---
PT C/O 8/10 PAIN, PRN PAIN MEDICATION GIVEN. ORDERED MEDICATIONS ALSO GIVEN. PATIENT TOLERATED THEM WELL. NO COMPLAINTS AT THIS TIME. ALL NEEDS MET. SAFETY AND ISOLATION PRECAUTIONS IN PLACE, CALL LIGHT WITHIN REACH, WILL CONTINUE TO MONITOR PATIENT.
[2018-10-25 09:24] LABS: CHOL/HDL RATIO 4.3 (1-4.5)
--- NOTE | 2018-10-25 10:09 | NUR ---
PT C/O 9/10 PAIN, PRN PAIN MEDICATION GIVEN. PATIENT TOLERATED IT WELL. NO COMPLAINTS AT THIS TIME. ALL NEEDS MET. SAFETY AND ISOLATION PRECAUTIONS IN PLACE, CALL LIGHT WITHIN REACH, WILL CONTINUE TO MONITOR PATIENT.
--- NOTE | 2018-10-25 11:52 | NUR ---
CALLED [facility] [phone] SPOKE WITH QUITA HERNANDEZ THE WATER SUPPLY TECHNICIAN REGARDING THE TRANSFER , PER QUITA HE WILL FOLLOW UP AND WILL CALL BACK.
--- NOTE | 2018-10-25 12:10 | NUR ---
BLOOD SUGAR 85, NO COVERAGE NEEDED. PT C/O 09/18 CHRONIC PAIN, PRN PAIN MEDICATION GIVEN. PATIENT TOLERATED IT. SAFETY AND ISOLATION PRECAUTIONS IN PLACE, CALL LIGHT WITHIN REACH, WILL CONTINUE TO MONITOR PATIENT.
[2018-10-25 16:00] VITALS: BP 105/62
--- NOTE | 2018-10-25 16:10 | NUR ---
PT C/O 10/19 PAIN, PRN PAIN MEDICATION GIVEN. PATIENT TOLERATED IT WELL. NO COMPLAINTS AT THIS TIME. ALL NEEDS MET. PRN PAIN MEDICATION SCAN WAS NOT SAVED. SAFETY AND ISOLATION PRECAUTIONS IN PLACE, CALL LIGHT WITHIN REACH, WILL CONTINUE TO MONITOR PATIENT.
--- NOTE | 2018-10-25 17:05 | NUR ---
HR RETAKEN. HR 70. NO COMPLAINTS AT THIS TIME. WILL CONTINUE TO MONITOR PATIENT.
--- NOTE | 2018-10-25 18:14 | NUR ---
PT C/O 10 PAIN, PRN PAIN MEDICATION GIVEN. PATIENT TOLERATED IT WELL. BLOOD SUGAR 101 NO COVERAGE GIVEN. NO COMPLAINTS AT THIS TIME. ALL NEEDS MET. SAFETY AND ISOLATION PRECAUTIONS IN PLACE, CALL LIGHT WITHIN REACH, WILL CONTINUE TO MONITOR PATIENT.
--- NOTE | 2018-10-25 19:30 | NUR ---
RECIEVED PT AAOX4 , NID , WITH PICC LINE DOUBLE LUMEN , WITH CHRONIC MULTIPLE WOUNDS ,ON TPN AT 80ML/HR -INFUSING WELL , ON REGULAR DIET ,USES URINAL , ON SAFETY /FALL PRECAUTION PROTOCOL-CALL LIGHT WITHIN REACH , PLAN OF CARE DISCUSSED AND VERBALIZE UNDERSTANDING.C/O PAIN -WILL MEDICATE ACCORDINGLY PER DR'S ORDERED . WILL CONT. TO MONITOR.
--- NOTE | 2018-10-25 19:30 | NUR ---
PATIENT REPORT GIVEN TO IMPLEMENTATION SERVICES ANALYST NURSE AT BEDSIDE FOR CONTINUITY OF CARE. PATIENT IN STABLE CONDITION.
[2018-10-25] MEDS: DEXTROSE IV SCH ×4 (19:56)
[2018-10-25] MEDS: [UNRECOGNIZED DRUG - OTHER] IV SCH ×4 (19:56)
[2018-10-25] MEDS: MULTIVITAMIN IV SCH ×4 (19:56)
[2018-10-25] MEDS: AMINO ACIDS IV SCH ×4 (19:56)
--- NOTE | 2018-10-25 20:22 | NUR ---
BP114/67,ID 100 , O2 SAT. 99%, C/O OF PAIN - DILAUDID GIVEN ORDERED.WILL CONT. TO MONITOR, CALL LIGHT WITHIN REACH.
--- NOTE | 2018-10-25 22:00 | NUR ---
OFF LOAD PRESSURE AREAS BUT PT REFUSED. WILL CONT. TO MONITOR , ON BEARABLE PAIN AT THIS TIME HE SAID , CALL LIGHT WITHIN REACH. WILL CONT. TO MONITOR.
--- NOTE | 2018-10-25 22:15 | NUR ---
BP 111/62, WI 99 , O2 SAT 99% , C/O PAIN - DILAUDID TIV GIVEN ORDERED. Addendum: 10/26/18 at 0312 by Ashlyn Goodwin RN WILL CONT. TO MONITOR, EDUCATES PT ABOUT SIDE EEFECTS OF MEDICATION , VERBALIZE UNDERSTANDING.
[2018-10-26] VITALS: BP 111/60
--- NOTE | 2018-10-26 | NUR ---
MADEB ROUNDS , NO SIGNS OF DISTRESS NOTED AT THIS TIME , CALL LIGHT WITHIN REACH , WILL CONT. TO MONITOR.
[2018-10-26] MEDS: HYDROmorphone PFS 2 MG/ML SYR IVP PRN ×11 (00:23→23:12)
--- NOTE | 2018-10-26 00:23 | NUR ---
BP 111/60 , VT 102, OS SAT 99% , C/O PAIN -DILAUDID TIV GIVEN ORDERED . EDUCATES PT ABOUT THE SIDE EEFECTS OF MEDICATION , WILL CONT. TO MONITOR , CALL LIGHT WITHIN REACH.
[2018-10-26] MEDS: BLOOD GLUCOSE MONITORING 1 DEV DEV FS SCH ×4 (00:32→17:09)
--- NOTE | 2018-10-26 02:00 | NUR ---
MADE ROUNDS , NO SIGNS OF DISTRESS NOTED AT THIS TIME, CALL LIGHT WITHIN REACH.
--- NOTE | 2018-10-26 02:45 | NUR ---
BP 110/66 . VT 102 , O2 SAT 99% , C/O PAIN -DILAUDID GIVEN TIV , EDUCATES THE SIDE EFFECTS OF MEDICATION, WILL CONT. TO MONITOR , CALL LIGHT WITHIN REACH.
[2018-10-26 07:15] LABS: MAGNESIUM 1.9 mg/dL (1.8-2.4); PHOSPHORUS 5.3 mg/dL (2.5-4.9)
--- NOTE | 2018-10-26 07:30 | NUR ---
ENDORSED TO AM SHIFT FOR CONT. OF CARE WITH STABLE CONDITION , LBP 110/62 ,O2 SAT 99%
--- NOTE | 2018-10-26 07:31 | NUR ---
Report received from night nurse. Pt awake a/o x 4 able to communicate needs. Pt continues to receive TPN to RUE double lume PICC line, no s/s of infection or infiltration noted to site. Pt denies N/V or other gastric distress. Pt also has colostomy in place, stoma wnl. No active stool at this time. Pt denies sob, numbness or tingling. Pt states he has pain to ble, neck and back , states it is chronic and tolerable at this time, encouraged relaxation techniques and diversional activities, will reassess. No s/s of acute distress noted. Pt continues to have dressings to BLE. Call light and personal items within easy reach. Will continue to monitor.
[2018-10-26 07:36] LABS: ALBUMIN 1.9 g/dL (3.4-5.0); ANION GAP 9.7 (8-16); CARBON DIOXIDE 29.3 mmol/L (21-32); CREATININE 0.9 mg/dL (0.7-1.3); TOTAL BILIRUBIN 0.1 mg/dL (0.0-1.0)
[2018-10-26 08:00] VITALS: BP 105/62
[2018-10-26 09:05] LABS: BASOPHILS % (AUTO) 0.6 % (0.0-2.0); EOSINOPHILS # (AUTO) 0.2 K/uL (0-0.4); EOSINOPHILS % (AUTO) 3.6 % (0.0-4.0); HEMOGLOBIN 9.5 g/dL (12.0-18.0); LYMPHOCYTES # (AUTO) 1.3 K/uL (2.0-11.5); LYMPHOCYTES % (AUTO) 19.6 % (20.5-51.1); MEAN CORPUSCULAR HEMOGLOBIN 29 pg (27-31); MEAN CORPUSCULAR HGB CONC 33 g/dL (33-37); MONOCYTES # (AUTO) 0.7 K/uL (0.8-1.0); MONOCYTES % (AUTO) 10.8 % (1.7-9.3); NEUTROPHILS # (AUTO) 4.4 K/uL (1.8-7.7); NEUTROPHILS % (AUTO) 65.4 % (42.2-75.2); PLATELET COUNT (AUTO) 562 K/uL (140-450); RED BLOOD CELL COUNT(AUTO) 3.25 MIL/uL (4.20-6.10); RED CELL DISTRIBUTION WIDTH 16.2 % (11.6-13.7); WHITE BLOOD COUNT (AUTO) 6.7 K/uL (4.8-10.8)
[2018-10-26] MEDS: DOCUSATE SODIUM 100 MG GELCAP PO SCH (09:18)
[2018-10-26] MEDS: DULoxetine 30 MG CAPDR PO SCH (09:18)
--- NOTE | 2018-10-26 10:20 | NUR ---
Pt remains awake a/o and able to communicate needs. Pt denies N/V or other gastric distress. Pt states his pain is continuous but tolerable at this time, encouraged continued relaxation techniques and diversional activities, will reassess and medicate as needed in accord with order. Call light and personal items within easy reach. Will continue to monitor.
--- NOTE | 2018-10-26 10:29 | NUR ---
RECEIVED A CALL FROM KISHORE MCCABE SUGGESTED TO REACH OUT ANOTHER [facility] AND WILLING TO DO THE ESTEBAN . FAXED THE PAPER WORK [facility] [phone], SPOKE WITH MARCELLE CM WILL REVIEW THE CASE AND WILL CALL BACK
--- NOTE | 2018-10-26 10:38 | NUR ---
CALLED [facility] HAYLEE [phone] LEFT A MESSAGE REGARDING THE D/C PLAN ,
--- NOTE | 2018-10-26 11:12 | NUR ---
SPOKE WITH HAYLEE FROM [facility], STATED THE RECREATION ENGINEER FROM [facility] DR WISEMAN SUGGESTED TO REACH OUT ROX TO TAKE THE PATIENT BACK . PROVIDE WALDEMAR'S PHONE NUMBER TO HAYLEE AND , WILL HAVE A DISCUSSION TO GET THE PAIN MANAGEMENT DR ON THE CASE . HAYLEE WILL CALL BACK FOR THE UPDATE.
--- NOTE | 2018-10-26 11:21 | NUR ---
CONTACTED HAMILTON OF [facility] AT [phone] TO INQUIRE FOR PLACEMENT. SHE PROVIDED ME WITH FAX NUMBER TO FAX REFERRAL.
--- NOTE | 2018-10-26 11:28 | NUR ---
Dr Wilson at bedside to round on Pt. Pt remains awake a/o and able to communicate needs. Pt complains of pain and request pain medication, will medicate per order. Call light and personal items within easy reach. Will continue to monitor.
--- NOTE | 2018-10-26 11:50 | NUR ---
PT REFUSES EKG DUE TO WOUNDS GÉNESIS LIN NOTIFIED
--- NOTE | 2018-10-26 14:29 | NUR ---
CONTACTED [facility] AT , ABLE TO SPEAK TO CHRYSTAL (ADMISSIONS). SHE STATED THAT THEY DO WOUND CARE WELL. PROVIDED ME WITH FAX NUMBER [phone] TO SEND REFERRALS. REFERRAL SENT TO THE FAX NUMBER PROVIDED.
--- NOTE | 2018-10-26 14:30 | NUR ---
Pt watching videos on his tablet , appears comfortable, states pain tolerable at this time. No s/s of acute distress noted, call light and personal items within easy reach. Will continue to monitor.
--- NOTE | 2018-10-26 14:35 | NUR ---
CONTACTED JESSY OCHOA) OF [facility] AT [phone] REGARDING PLACEMENT, NO ANSWER. LEFT MESSAGE. WILL SEND REFERRAL TO [phone] PER [employer]IC[employer].
--- NOTE | 2018-10-26 15:56 | NUR ---
RECEIVED A CALL FROM JESSY PERALTA OF [facility], SHE STATED THAT THEY ARE NOT CONTRACTED WITH [facility]. INFORMED HER THAT [facility] IS WILLING TO MAKE A LETTER OF AGREEMENT. SHE ALSO STATED THAT THEY CAN ONLY ACCEPT PATIENT ON VENT.
[2018-10-26 16:00] VITALS: BP 106/60
--- NOTE | 2018-10-26 17:30 | NUR ---
Pt remain a/o able to communicate needs, watching videos on his tablet with family at bedside, reinforced contact precautions education. No s/s of acute distress noted at this time. Call light and personal items within easy reach. Will continue to monitor.
--- NOTE | 2018-10-26 19:20 | NUR ---
Pt resting at this time, appears comfortable, No s/s of acute distress noted at this time.call light and personal items within easy reach. Report endorsed to oncoming nurse.
--- NOTE | 2018-10-26 19:22 | NUR ---
RECEIVED PATIENT FROM DAY NURSE, A&OX4, ABLE TO COMMUNICATE NEEDS, RUE PICC LINE WITH TPN, INTACT AND PATENT, ON ROOM AIR, SKIN GRAFTS ON RIGHT ARM, COLOSTOMY BAG IN PLACE, DRESSING ON BILATERAL LEGS, REPORTS BEING IN PAIN, ON CONTACT PRECAUTIONS, CALL LIGHT WITHIN REACH, BED ON LOW POSITION WITH SIDE RAILS UP X2, PT REFUSED WITH SKIN ASSESSMENT ESPECIALLY ON HIS WOUNDS, WILL CONTINUE TO MONITOR.
[2018-10-26] MEDS: DEXTROSE IV SCH ×4 (20:01)
[2018-10-26] MEDS: MULTIVITAMIN IV SCH ×4 (20:01)
[2018-10-26] MEDS: AMINO ACIDS IV SCH ×4 (20:01)
[2018-10-26] MEDS: [UNRECOGNIZED DRUG - OTHER] IV SCH ×4 (20:01)
--- NOTE | 2018-10-26 21:25 | NUR ---
PATIENT IS AWAKE, WATCHING TV, REFUSED TO REPOSITION, NO SIGNS OF DISTRESS AT THE MOMENT, URINAL AT BEDSIDE, CALL LIGHT WITHIN REACH, WILL CONTINUE TO MONITOR.
--- NOTE | 2018-10-26 23:12 | NUR ---
PATIENT COMPLAINED OF PAIN ON NECK AND BACK 8/10 LEVEL, ADMINISTERED PAIN MEDICATION, WATCHING TV, CALL LIGHT WITHIN REACH, WILL CONTINUE TO MONITOR.
[2018-10-27] MEDS: BLOOD GLUCOSE MONITORING 1 DEV DEV FS SCH ×5 (00:24→23:02)
--- NOTE | 2018-10-27 01:35 | NUR ---
PATIENT IS AWAKE, LISTENING TO MUSIC, ABLE TO COMMUNICATE NEEDS, PAIN LEVEL 8/10, CALL LIGHT WITHIN REACH, WILL CONTINUE TO MONITOR.
[2018-10-27] MEDS: HYDROmorphone PFS 2 MG/ML SYR IVP PRN ×10 (01:50→22:58)
--- NOTE | 2018-10-27 03:03 | NUR ---
PATIENT COMPLAINS OF PAIN, EDUCATED ON RELAXATION EXERCISES, BELONGINGS ARE NEAR, CALL LIGHT WITHIN REACH, WILL CONTINUE TO MONITOR.
[2018-10-27 04:00] VITALS: BP 103/56
--- NOTE | 2018-10-27 04:02 | NUR ---
ADMINISTERED PATIENT PAIN MEDICATION DILAUDID, NO SIGNS OF DISCOMFORT AT THE MOMENT, EMPTIED OUT URINAL, WILL CONTINUE TO MONITOR.
--- NOTE | 2018-10-27 05:54 | NUR ---
CHECKED BLOOD SUGAR ON PATIENT, ADMINISTERED PAIN MEDICATION FOR PAIN LEVEL OF 8/10, NO SIGNS OF DISCOMFORT NOTED, WILL CONTINUE TO MONITOR FOR CHANGES IN CONDITION.
[2018-10-27 07:01] LABS: BASOPHILS % (AUTO) 0.6 % (0.0-2.0); EOSINOPHILS # (AUTO) 0.2 K/uL (0-0.4); EOSINOPHILS % (AUTO) 3.7 % (0.0-4.0); HEMATOCRIT 28.8 % (36-52); HEMOGLOBIN 9.4 g/dL (12.0-18.0); LYMPHOCYTES # (AUTO) 1.5 K/uL (2.0-11.5); LYMPHOCYTES % (AUTO) 23.7 % (20.5-51.1); MEAN CORPUSCULAR HEMOGLOBIN 29 pg (27-31); MEAN CORPUSCULAR HGB CONC 33 g/dL (33-37); MEAN CORPUSCULAR VOLUME 88.9 fL (80-94); MONOCYTES # (AUTO) 0.8 K/uL (0.8-1.0); NEUTROPHILS # (AUTO) 3.9 K/uL (1.8-7.7); PLATELET COUNT (AUTO) 514 K/uL (140-450); RED BLOOD CELL COUNT(AUTO) 3.23 MIL/uL (4.20-6.10); RED CELL DISTRIBUTION WIDTH 16.2 % (11.6-13.7); WHITE BLOOD COUNT (AUTO) 6.5 K/uL (4.8-10.8)
[2018-10-27 07:16] LABS: MAGNESIUM 1.9 mg/dL (1.8-2.4); PHOSPHORUS 5.6 mg/dL (2.5-4.9)
--- NOTE | 2018-10-27 07:20 | NUR ---
RECEIVED PT FROM [facility], PT IS AWAKE AND LYING ON THE BED WITH SIDE RAILS UP AND CALL LIGHT WITHIN REACH, PT HAS A RT UA PICC LINE, DOUBLE LUMEN, WITH TPN ON ONE PORT AT 79.668ML/HR, NO IVF INFUSING, ONE PORT ON SALINE LOCK, DRESSING IN PLACE FOR LEG WOUND, PT C/O PAIN RATE OF 8/10, NO OTHER SIGN OF DISTRESS NOTED. WILL MONITOR PT
[2018-10-27 07:22] LABS: ALBUMIN 1.8 g/dL (3.4-5.0); ANION GAP 9.5 (8-16); POTASSIUM 4.5 mmol/L (3.5-5.1); TOTAL BILIRUBIN 0.2 mg/dL (0.0-1.0)
[2018-10-27 07:46] VITALS: BP 105/60
--- NOTE | 2018-10-27 07:46 | NUR ---
PT WAS GIVEN PAIN MEDICATION NOW VIA IV PUSH, PARAMETER CHECKED. WILL MONITOR PT.
[2018-10-27] MEDS: DOCUSATE SODIUM 100 MG GELCAP PO SCH (09:44)
[2018-10-27] MEDS: DULoxetine 30 MG CAPDR PO SCH (09:44)
--- NOTE | 2018-10-27 09:44 | NUR ---
PT IS AWAKE AND PARAMETER CHECKED, BP IS 109/66, PULSE IS 105, AND O2 SATURATION IS 100%, ORAL AND IV PUSH MEDICATIONS WERE GIVEN TO PT AND TOLERATED IT. WILL MONITOR PT.
--- NOTE | 2018-10-27 11:09 | NUR ---
PT IS OFF THE UNIT NOW AND WAS BROUGHT TO OR FOR A DRESSING CHANGE WITH ANESTHESIA.
[2018-10-27] MEDS ORDERED: MIDAZOLAM 2 MG/2 ML VIAL ONE (11:19)
[2018-10-27] MEDS ORDERED: fentaNYL 0.05 MG/ML VIAL ONE (11:20)
[2018-10-27] MEDS ORDERED: MEPERIDINE 50 MG/ML SYR ONE (11:20)
[2018-10-27] MEDS ORDERED: SEVOFLURANE 250 ML BTL INH ONE (11:21)
[2018-10-27] MEDS: HYDROmorphone 1 MG/ML AMP IVP PRN ×4 (12:04→12:34)
[2018-10-27] MEDS ORDERED: MEPERIDINE 25 MG/ML SYR IVP PRN (12:05)
[2018-10-27] MEDS ORDERED: diphenhydrAMINE 50 MG/ML VIAL IVP PRN (12:05)
[2018-10-27] MEDS ORDERED: ONDANSETRON 4 MG/2 ML VIAL IVP PRN (12:05)
--- NOTE | 2018-10-27 12:08 | NUR ---
LEFT A VM TO DR. VIDES [facility] # [phone] TO FOLLOW UP WITH THE PAIN MANAGEMENT CONSULT ORDER. AWAITING FOR CALL BACK. KORIN=RN ASSIGNED MADE AWARE.
[2018-10-27] MEDS ORDERED: HYDROmorphone PFS 2 MG/ML SYR ONE (12:14)
--- NOTE | 2018-10-27 12:40 | NUR ---
PT WAS BROUGHT BACK TO ROOM NOW BY OR NURSE, ALEX, PT V/S TAKEN AND IS STABLE.
[2018-10-27] MEDS: NACL 0.9% 1,000 ML IV SCH ×2 (12:48→20:51)
--- NOTE | 2018-10-27 14:36 | NUR ---
PT C/O PAIN AND WAS MEDICATED, BP IS 126/64, PULSE IS 105, O2 SATURATION IS 100%, WILL RE-ASSESS AND MONITOR PT.
--- NOTE | 2018-10-27 14:45 | NUR ---
10/27/18 RD FOLLOW UP COMPLETED PLEASE REFER TO NUTRITION ASSESSMENT UNDER CARE ACTIVITY FOR ESTIMATED NUTRITIONAL NEEDS. 1. CONTINUE TPN TO D 16.8%, AA 4.25% AT 80ML/HR AND LIPIDS 20%(200 ML) TOLERATED -THIS WILL PROVIDE PATIENT WITH 1820 KCAL, 81 GM OF PROTEIN 2. ENCOURAGE INCREASING PO INTAKE 3. CONTINUE BLAND/SOFT DIET TOLERATED WITH SUPPLEMENTS BROUGHT FROM HOME 4. CONTINUE RODRIGUEZ BID 5. RD WILL FOLLOW UP 2-3 DAYS, HIGH RISK ALEXEI JOHNSTON RD
--- NOTE | 2018-10-27 15:00 | NUR ---
CALLED DR. GAO, INFORMED HIM THAT I LEFT A VOICEMAIL TO [facility] #. DR. GAO STATED DR. VELAZQUEZ IS OUT OF TOWN AND WILL SEE PT ON THURSDAY. SOLOMON NOTIFIED.
[2018-10-27 16:00] VITALS: BP 127/65
--- NOTE | 2018-10-27 16:48 | NUR ---
PATIENT COMPLAINS OF PAIN. DILAUDID GIVEN AT THIS TIME. WILL CONTINUE TO MONITOR.
--- NOTE | 2018-10-27 18:41 | NUR ---
PT C/O PAIN AND WAS GGHIVEN PAIN MEDICATION NOW VIA IV PUSH. WILL RE-ASSESS AND MONITOR PT.
--- NOTE | 2018-10-27 19:05 | NUR ---
RECEIVED BEDSIDE REPORT FROM DAY SHIFT NURSE. PATIENT IS AWAKE AND ALERT. RESPIRATION EVEN UNLABORED ON ROOM AIR. NO DISTRESS NOTED. SKIN IS WARM AND DRY. RIGHT IJ IN PLACE TRIPLE LUMEN. COLOSTOMY BAG IN PLACE. CONTACT PRECAUTION FOR WELD ENGINEER, MDRO WOUND. PLAN OF CARE WAS DISCUSSED. ALL SAFETY MEASURES IN PLACE. MOM AT BEDSIDE. BED IS AT LOW POSITION. CALL LIGHT WITHIN REACH AND VERBALIZE ITS USE. WILL CONTINUE TO MONITOR.
--- NOTE | 2018-10-27 19:15 | NUR ---
ENDORSED PT TO INSURANCE AND FINANCIAL SERVICES AGENT NURSEBHARATHI FOR CONTINUITY OF CARE.
--- NOTE | 2018-10-27 20:00 | NUR ---
INITIAL ASSESSMENT DONE. VITALS WERE TAKEN. PATIENT IN STABLE CONDITION. WILL CONTINUE TO MONITOR.
[2018-10-27] MEDS: MULTIVITAMIN IV SCH ×4 (20:15)
[2018-10-27] MEDS: [UNRECOGNIZED DRUG - OTHER] IV SCH ×4 (20:15)
[2018-10-27] MEDS: AMINO ACIDS IV SCH ×4 (20:15)
[2018-10-27] MEDS: DEXTROSE IV SCH ×4 (20:15)
--- NOTE | 2018-10-27 21:00 | NUR ---
ALL SCHEDULED MEDS WERE GIVEN PER ORDER. PATIENT COMPLAINED OF NECK PAIN 09/18. PRN PAIN MED ADMINISTERED PER ORDER. WILL CONTINUE TO MONITOR.
--- NOTE | 2018-10-27 22:50 | NUR ---
PATIENT COMPLAINED OF NECK PAIN 09/18. PRN PAIN MED ADMINISTERED PER ORDER. WILL CONTINUE TO MONITOR.
[2018-10-28] VITALS: BP 103/62
--- NOTE | 2018-10-28 | NUR ---
VITALS WERE TAKEN. PATIENT IN STABLE CONDITION. NO DISTRESS NOTED. WILL CONTINUE TO MONITOR.
[2018-10-28] MEDS: HYDROmorphone PFS 2 MG/ML SYR IVP PRN ×10 (01:41→22:32)
--- NOTE | 2018-10-28 01:41 | NUR ---
PATIENT COMPLAINED OF NECK PAIN 09/18. PRN PAIN MED ADMINISTERED PER ORDER. WILL CONTINUE TO MONITOR.
--- NOTE | 2018-10-28 03:41 | NUR ---
DILAUDID GIVEN FOR 10/10 PAIN. PT TOLERATED WELL.
[2018-10-28] MEDS: BLOOD GLUCOSE MONITORING 1 DEV DEV FS SCH ×3 (05:47→17:54)
--- NOTE | 2018-10-28 05:48 | NUR ---
PATIENT COMPLAINED OF NECK PAIN 09/18. PRN PAIN MED ADMINISTERED. CHECKED PATIENT BLOOD SUGAR. PATIENT BLOOD SUGAR 64. GAVE ORANGE JUICE AND CRACKERS TO INCREASED BLOOD SUGAR. WILL CONTINUE TO MONITOR.
--- NOTE | 2018-10-28 06:48 | NUR ---
THROUGHOUT THE SHIFT PATIENT REFUSED TO BE REPOSITION. EDUCATE THE RISK AND BENEFIT X2 STILL REFUSED. WILL CONTINUE TO MONITOR.
[2018-10-28 07:18] LABS: BASOPHILS % (AUTO) 0.6 % (0.0-2.0); EOSINOPHILS # (AUTO) 0.2 K/uL (0-0.4); EOSINOPHILS % (AUTO) 2.8 % (0.0-4.0); HEMATOCRIT 26.6 % (36-52); HEMOGLOBIN 8.6 g/dL (12.0-18.0); LYMPHOCYTES # (AUTO) 1.6 K/uL (2.0-11.5); LYMPHOCYTES % (AUTO) 21.8 % (20.5-51.1); MAGNESIUM 1.4 mg/dL (1.8-2.4); MEAN CORPUSCULAR HEMOGLOBIN 29 pg (27-31); MEAN CORPUSCULAR HGB CONC 32 g/dL (33-37); MEAN CORPUSCULAR VOLUME 89.8 fL (80-94); MONOCYTES # (AUTO) 0.7 K/uL (0.8-1.0); MONOCYTES % (AUTO) 9.6 % (1.7-9.3); NEUTROPHILS # (AUTO) 4.7 K/uL (1.8-7.7); NEUTROPHILS % (AUTO) 65.2 % (42.2-75.2); PHOSPHORUS 5.1 mg/dL (2.5-4.9); PLATELET COUNT (AUTO) 461 K/uL (140-450); RED BLOOD CELL COUNT(AUTO) 2.96 MIL/uL (4.20-6.10); RED CELL DISTRIBUTION WIDTH 16.3 % (11.6-13.7); WHITE BLOOD COUNT (AUTO) 7.3 K/uL (4.8-10.8)
--- NOTE | 2018-10-28 07:19 | NUR ---
ENDORSED PATIENT TO DAY SHIFT NURSE. PATIENT IN STABLE CONDITION.
--- NOTE | 2018-10-28 07:24 | NUR ---
RECEIVED PT FROM STEAM CRANE OPERATOR NURSEBHARATHI, PT IS AWAKE AND SIDE RAILS ARE UP AND CALL LIGHT WITHIN REACH, PICC LINE ON THE RT UA DOUBLE LUMEN, WITH TPN INFUSING ON ONE LUMEN AND THE OTHER LUMEN ON SALINE LOCK, PT HAS RT BKA, LEFT LEG DRESSING INTACT, NO SIGN OF DISTRESS NOTED AND WILL MONITOR PT.
[2018-10-28 08:00] VITALS: BP 106/59
[2018-10-28] MEDS: DULoxetine 30 MG CAPDR PO SCH (08:16)
[2018-10-28] MEDS: DOCUSATE SODIUM 100 MG GELCAP PO SCH (08:16)
--- NOTE | 2018-10-28 08:17 | NUR ---
PT IS AWAKE AND PARAMETER CHECKED, BP IS 106/59, PULSE IS 107 AND O2 SATURATION IS 100%, ORAL AND IV PUSH MEDICATIONS WERE GIVEN AND TOLERATED IT. WILL RE-ASSESS PAIN NAND MONITOR PT.
[2018-10-28 09:54] LABS: ALBUMIN 1.6 g/dL (3.4-5.0); ANION GAP 13.9 (8-16); CREATININE 1.1 mg/dL (0.7-1.3); POTASSIUM 3.9 mmol/L (3.5-5.1); TOTAL BILIRUBIN 0.2 mg/dL (0.0-1.0)
--- NOTE | 2018-10-28 10:00 | NUR ---
PT REFUSED TO BE REPOSITIONED NOW.
--- NOTE | 2018-10-28 10:32 | NUR ---
PT C/O PAIN RATE OF 8/10 AND PAIN MEDICATION WAS GIVEN, BP IS 112/55, PULSE IS 114 AND O2 SATURATION IS 100%, WILL MONITOR PT.
[2018-10-28] MEDS ORDERED: MAG SULF 2000 MG/WATER PREMIX 50 ML IV SCH (11:00)
--- NOTE | 2018-10-28 11:44 | NUR ---
RECEIVED A CALL FROM [facility] SPOKE WITH KARI PERALTA STATED THEY DISCUSSED THE CASE FROM THE MEDICAL TEAM AND WAS ASKED TO PROVIDE ALL THE DECLINED HOSPITALS AND LTAC'S . PROVIDED ALL THE HOSPITALS SUCH : [facility] , [facility]) , [facility] [place] [facility] , PER KARI PERALTA WILL CALL US BACK CM TO FOLLOW.
--- NOTE | 2018-10-28 12:53 | NUR ---
PT C/O PAIN RATE OF 8/10 AND WAS MEDICATED, BP IS 100/57, PULSE IS 115, O2 SATURATION IS 99%. MAGNESIUM WAS GIVEN FOR MG LEVEL OF 1.6. WILL MONITOR PT.
--- NOTE | 2018-10-28 15:30 | NUR ---
PT WAS GIVEN PAIN MEDICATION NOW, PARAMETER CHECKED AND IS STABLE, WILL MONITOR PT.
[2018-10-28 16:00] VITALS: BP 103/57
--- NOTE | 2018-10-28 17:53 | NUR ---
PT IS AWAKE AND PARAMETER CHECKED, BP IS 103/57, PULSE IS 107, O2 SATURATION IS 98%, PAIN MEDICATION WAS GIVEN VIA IV PUSH, BLOOD GLUCOSE CHECK DONE AND RESULT IS 88. WILL MONITOR PT.
--- NOTE | 2018-10-28 19:00 | NUR ---
ENDORSED PT TO HOG STOMACH PREPARER NURSEASHLEY FOR CONTINUITY OF CARE.
--- NOTE | 2018-10-28 19:10 | NUR ---
RECEIVED REPORT FROM AM SHIFT RN KORIN, FOR PT'S CONTINUITY OF CARE. PT LYING DOWN AAOX4, WATCHING TV, IS ON RA, HAS RIGHT UPPER ARM PICC LINE, DRESSINGS ON BLE ARE DRY AND INTACT, HAS LEFT SIDE COLOSTOMY BAG, PT C/O TOLERABLE PAIN. EXPLAINED TO PT FIRST PRESS OPERATOR ROUTINE, PT VERBALIZED UNDERSTANDING. WOUND CARE BED IS ON LOW0 POSITION, SIDE RAILS ARE UP, AND CALL LIGHT IS WITHIN REACH. WILL MONITOR THROUGHOUT SHIFT.
--- NOTE | 2018-10-28 20:15 | NUR ---
ADMINISTERED PRN IV PUSH PAIN MEDICATION ORDERED. PT TOLERATED IT WELL. WILL CONTINUE TO MONITOR.
[2018-10-28] MEDS: DEXTROSE IV SCH ×4 (21:30)
[2018-10-28] MEDS: [UNRECOGNIZED DRUG - OTHER] IV SCH ×4 (21:30)
[2018-10-28] MEDS: AMINO ACIDS IV SCH ×4 (21:30)
[2018-10-28] MEDS: MULTIVITAMIN IV SCH ×4 (21:30)
--- NOTE | 2018-10-28 22:32 | NUR ---
ADMINISTERED IV PUSH PRN PAIN MEDICATION. PT TOLERATED IT WELL. WILL CONTINUE TO MONITOR.
[2018-10-29] VITALS: BP 109/61
--- NOTE | 2018-10-29 00:30 | NUR ---
VS CHECKED AND CHARTED, AND BLOOD GLUCOSE CHECK AND CHARTED, NO COVERAGE NEEDED. PT C/O PAIN. WILL ADMINISTER PAIN MEDICATION.
[2018-10-29] MEDS: HYDROmorphone PFS 2 MG/ML SYR IVP PRN ×10 (00:51→22:08)
--- NOTE | 2018-10-29 00:51 | NUR ---
ADMINISTERED PRN IV PUSH PAIN MEDICATION ORDERED. WILL CONTINUE TO MONITOR.
--- NOTE | 2018-10-29 02:30 | NUR ---
PT REQUESTED FOR PAIN MEDICATION.ADMINISTERED IV PUSH PRN PAIN MEDICATION. PT TOLERATED IT WELL. Addendum: 10/29/18 at 0451 by Sharri Babcock RN WRONG ENTRY
--- NOTE | 2018-10-29 03:15 | NUR ---
PT C/O PAIN 09/18. ADMINISTERED PRN IV PUSH PAIN MEDICATION ORDERED. PT TOLERATED IT WELL.
--- NOTE | 2018-10-29 05:53 | NUR ---
PT C/O PAIN 11/18. ADMINISTERED PRN IV PUSH PAIN MEDICATION ORDERED. VS CHECKED. BLOOD GLUCOSE CHECKED AND CHARTED. WILL ENDORSE TO AM SHIFT RN FOR PT'S CONTINUITY OF CARE.
[2018-10-29] MEDS: BLOOD GLUCOSE MONITORING 1 DEV DEV FS SCH ×4 (05:57→17:17)
[2018-10-29 07:15] LABS: ALBUMIN 1.7 g/dL (3.4-5.0); ANION GAP 9.5 (8-16); CARBON DIOXIDE 28.4 mmol/L (21-32); POTASSIUM 3.9 mmol/L (3.5-5.1); TOTAL BILIRUBIN 0.1 mg/dL (0.0-1.0)
[2018-10-29 08:00] VITALS: BP 121/72
[2018-10-29] MEDS: DULoxetine 30 MG CAPDR PO SCH (08:12)
[2018-10-29] MEDS: DOCUSATE SODIUM 100 MG GELCAP PO SCH (08:12)
--- NOTE | 2018-10-29 08:16 | NUR ---
ADMINISTERED MORNING MEDS AND DILAUDID FOR PAIN. PT TOLERATED WELL. WILL CONTINUE TO MONITOR PT.
--- NOTE | 2018-10-29 10:20 | NUR ---
PAIN LEVEL 10/10. ADMINISTERED DILAUDID. PT TOLERATED WELL. WILL CONTINUE TO MONITOR PT.
--- NOTE | 2018-10-29 11:50 | NUR ---
PER IE REQUEST FAXED ALL THE PAPER WORK TO [facility] [phone] AND [facility] [phone] CM TO FOLLOW
[2018-10-29] MEDS ORDERED: MAG SULF 2000 MG/WATER PREMIX 50 ML IV SCH (12:00)
--- NOTE | 2018-10-29 14:26 | NUR ---
10/29/18 RD FOLLOW UP COMPLETED PLEASE REFER TO NUTRITION ASSESSMENT UNDER CARE ACTIVITY FOR ESTIMATED NUTRITIONAL NEEDS. 1. CONTINUE TPN TO D 16.8%, AA 4.25% AT 80ML/HR AND LIPIDS 20%(200 ML) TOLERATED -THIS WILL PROVIDE PATIENT WITH 1820 KCAL, 81 GM OF PROTEIN 2. ENCOURAGE INCREASING PO INTAKE OF PROTEIN PORTIONS FIRST THEN CARBOHYDRATES AND LIQUIDS 3. CONTINUE REGULAR DIET TOLERATED WITH SUPPLEMENTS BROUGHT FROM HOME 4. RD WILL FOLLOW UP 2-3 DAYS, HIGH RISK ALEXEI JOHNSTON RD
--- NOTE | 2018-10-29 15:26 | NUR ---
DISCHARGE PLANNING Met with pt at the bedside. Pt was a&o x3, mood and affect were flat but cooperative. SW/CM met with pt to discuss d/c plan. Sw informed pt the CM team is working on a discharge plan for him, pt stated he was aware he couldn't stay in the hospital forever and he was grateful for the care received. Sw asked patient what his goals were and what he wished for his future. Pt indicated he wanted to get better. Sw praised pt for his response and discussed a plan which included a consult with the portrait painter and a transfer to a facility for continued wound care and rehab. Pt stated he's aware he needs to work with the pain management doctor and he's agreeable. SW will continue following up as needed. Dasia Pederson, ACSW Ext [phone]
[2018-10-29 16:00] VITALS: BP 105/54
--- NOTE | 2018-10-29 16:05 | NUR ---
Top Taper Machine Note: Per CJ from [facility] , is reviewing inquiry (burn unit) and if they do decide to accept patient they will need a contract signed between their hospital and [facility] indicating [facility] will accept patient if patient needs to be transferred back from [facility].
--- NOTE | 2018-10-29 19:20 | NUR ---
ENDORSED PT TO THE SHORT FILLER BUNCH MACHINE OPERATOR NURSE AT BEDSIDE. PT IS IN STABLE CONDITION. IN PAIN. REQUESTING PAIN MEDICATION.
--- NOTE | 2018-10-29 19:20 | NUR ---
RECIEVED PT AAOX4 , NID , ON TPN , WITH PICC - INTACT AND PATENT , ON WOUND BED , NID ON SAFETY/ FALL PRECAUTION PROTOCOL , WITH COLOSTOMY BAG -INTACT ,WITH SACRAL PRESSURE WOUND ON SACRAL BUT REFUSED TO OFF LOAD THE PRESSURE AREAS , RIGHT BKA , WITH MULTIPLE WOUNDS , PLAN OF CARE DISCUSSED AND VERBALIZE UNDERSTANDING , C/O PAIN ALL OVER THE BODY HE SAID -WILL MEDICATE ORDERED, WILL CONT. TO MONITOR -CALL LIGHT WITHIBN REACH.
[2018-10-29 20:00] VITALS: BP 110/60
[2018-10-29] MEDS: MULTIVITAMIN IV SCH ×4 (20:00)
[2018-10-29] MEDS: [UNRECOGNIZED DRUG - OTHER] IV SCH ×4 (20:00)
[2018-10-29] MEDS: DEXTROSE IV SCH ×4 (20:00)
[2018-10-29] MEDS: AMINO ACIDS IV SCH ×4 (20:00)
--- NOTE | 2018-10-29 22:00 | NUR ---
MADE ROUNDS , NO SIGNS OF DISTRESS NOTED AT THIS TIME , WILL CONT. TO MONITOR- CALL LIGHT WITHIN REACH
--- NOTE | 2018-10-30 | NUR ---
MADE ROUNDS , NO SIGNS OF DISTRESS NOTED AT THIS TIME , WILL CONT. TO MONITOR- CALL LIGHT WITHIN REACH
[2018-10-30] MEDS: HYDROmorphone PFS 2 MG/ML SYR IVP PRN ×11 (00:08→22:06)
[2018-10-30] MEDS: BLOOD GLUCOSE MONITORING 1 DEV DEV FS SCH ×4 (00:30→18:06)
--- NOTE | 2018-10-30 02:00 | NUR ---
MADE ROUNDS , RESP. EVEN AND UNLABORED , WILL CONT. TO MONITOR - CALL LIGHT WITHIN REACH
--- NOTE | 2018-10-30 07:15 | NUR ---
RECEIVED BEDSIDE REPORT FROM LEATHER WHITENER NURSE MEKHI. PT IS AWAKE, WATCHING TV, NO S/S OF DISTRESS. PT MARY ROOM AIR. C/O 7/10 PAIN IN LEGS AND BACK. CONTACT ISOLATION IS IN PLACE. RUE PICC LINE INFUSING TPN 79.6 ML/HR. FALL PRECAUTIONS IN PLACE, CALL LIGHT WITHIN REACH. WILL CONTINUE MONITORING.
--- NOTE | 2018-10-30 07:18 | NUR ---
ENDORSED TO AM SHIFT WITH STABLE CONDITION LBP 110/60
[2018-10-30 08:00] VITALS: BP 105/52
[2018-10-30] MEDS: DULoxetine 30 MG CAPDR PO SCH (09:03)
[2018-10-30] MEDS: DOCUSATE SODIUM 100 MG GELCAP PO SCH (09:03)
--- NOTE | 2018-10-30 10:02 | NUR ---
PAGED DR MILLER REGARDING PT'S DILAUDID 2 NG RENEWAL, DR PAUL LOO OK TO RENEW THE MEDICATION. Addendum: 10/30/18 at 1003 by Jovita Kohli RN 2 *MG
[2018-10-30 11:56] LABS: ANION GAP 8.5 (8-16); CARBON DIOXIDE 30.2 mmol/L (21-32); POTASSIUM 4.7 mmol/L (3.5-5.1)
[2018-10-30 12:02] LABS: ALBUMIN 1.7 g/dL (3.4-5.0); TOTAL BILIRUBIN 0.1 mg/dL (0.0-1.0)
--- NOTE | 2018-10-30 13:12 | NUR ---
PT REFUSING LUNCH TRAY, ASKING FOR A HAM SANDWICH AND SODA INSTEAD. FNS NOTIFIED.
--- NOTE | 2018-10-30 15:15 | NUR ---
PT SEEN BY DR MILLER
[2018-10-30] MEDS ORDERED: fentaNYL 0.025 MG/HR PATCH TD SCH (15:30)
[2018-10-30 16:00] VITALS: BP 118/64
--- NOTE | 2018-10-30 17:45 | NUR ---
PT REFUSED TO BE TURNED OR REPOSITIONED TODAY. PAIN CONTINUES TO REMAIN HIGH DESPITE DILAUDID 2 MG Q2H AND A FENTANYL PATCH, BETWEEN -.
--- NOTE | 2018-10-30 19:20 | NUR ---
PT ENDORSED TO CINDER PIT CRANE OPERATOR NURSE IN STABLE CONDITION
--- NOTE | 2018-10-30 19:20 | NUR ---
RECIEVED PT AAOX4 , NID , ON TPN - CONTINOUSLY DRIP , PICC - INTACT AND PATENT , COMPLAINING OF PAIN - WILL MEDICATE ,WITH MULTIPLE WOUNDS , RIGHT BKA , WITH SACRAL PRESSUREW WOUNDS , WITH COLOSTOMY , POOR APPETITE , PLAN OF CARE DISCUSSED AND VERBALIZE UNDERSTANDING , ON SAFETY / FALL PRECAUTION PROTOCOL - CALL LIGHT WITHIN REACH.WILL CONT. TO MONITOR.
[2018-10-30] MEDS: [UNRECOGNIZED DRUG - OTHER] IV SCH ×4 (20:06)
[2018-10-30] MEDS: AMINO ACIDS IV SCH ×4 (20:06)
[2018-10-30] MEDS: MULTIVITAMIN IV SCH ×4 (20:06)
[2018-10-30] MEDS: DEXTROSE IV SCH ×4 (20:06)
--- NOTE | 2018-10-30 22:00 | NUR ---
MADE ROUNDS , NO SIGNS OF DISTRESS NOTED - CALL LIGHT WITHIN REACH.
[2018-10-31] VITALS: BP 111/60
--- NOTE | 2018-10-31 | NUR ---
MADE ROUNDS , NO SIGNS OF DISTRESS NOTED - CALL LIGHT WITHIN REACH .
[2018-10-31] MEDS: HYDROmorphone PFS 2 MG/ML SYR IVP PRN ×9 (00:25→20:38)
--- NOTE | 2018-10-31 01:00 | NUR ---
WOUND ASSESSMENT NOT FULLY ASSESSMENT -BUT NO SIGNS OF ACTIVE BLEEDING OR ABNORMAL DISCHARGES NOTED AT THIS TIME - REFUSED CHANGE POSITION OR EVEN OFF LOAD PRESSURES AREAS - NEED MOTIVATION.
[2018-10-31] MEDS: BLOOD GLUCOSE MONITORING 1 DEV DEV FS SCH ×4 (06:10→18:28)
--- NOTE | 2018-10-31 07:15 | NUR ---
RECEIVED BEDSIDE REPORT FROM PROPERTY FIELD INSPECTOR NURSE MEKHI, PT IS AWAKE AND ALERT, NO S/S OF ACUTE DISTRESS. PT IS ON ROOM AIR. RUE PICC LINE INFUSING TPN 79 ML/HR CONTACT ISOLATION IN PLACE, FALL PRECAUTIONS IN PLACE. CALL LIGHT IS WITHIN REACH.
--- NOTE | 2018-10-31 07:15 | NUR ---
ENDORSED TO AM SHIFT WITH STABLE CONDITION . WITH LBP 111/60
[2018-10-31 08:00] VITALS: BP 98/47
[2018-10-31] MEDS: DOCUSATE SODIUM 100 MG GELCAP PO SCH (08:25)
[2018-10-31] MEDS: DULoxetine 30 MG CAPDR PO SCH (08:25)
--- NOTE | 2018-10-31 08:30 | NUR ---
PT C/O 9/10 PAIN IN THE LEGS AND BACK, MEDICATED WITH DILAUDID 2 MG.
--- NOTE | 2018-10-31 11:19 | NUR ---
PT C/O 10/19 PAIN IN LEGS, PRN IV DILAUDID ADMINISTERED, WILL REASSESS
[2018-10-31 11:40] LABS: ANION GAP 9.5 (8-16); CARBON DIOXIDE 27.6 mmol/L (21-32); POTASSIUM 4.1 mmol/L (3.5-5.1)
[2018-10-31 11:41] LABS: MAGNESIUM 1.9 mg/dL (1.8-2.4); PHOSPHORUS 5.4 mg/dL (2.5-4.9)
[2018-10-31 11:45] LABS: ALBUMIN 1.7 g/dL (3.4-5.0); TOTAL BILIRUBIN 0.2 mg/dL (0.0-1.0)
--- NOTE | 2018-10-31 12:57 | NUR ---
PT ASKING FOR HAM SANDWICH AND CHIPS INSTEAD OF EATING HIS TRAY LUNCH.
[2018-10-31 16:00] VITALS: BP 107/58
--- NOTE | 2018-10-31 16:18 | NUR ---
PT IS AWAKE AND ALERT, VISITING WITH HIS MOM AT BEDSIDE.
--- NOTE | 2018-10-31 18:35 | NUR ---
BLOOD GLUCOSE IS 103, NO INSULIN COVERAGE NEEDED.
--- NOTE | 2018-10-31 19:22 | NUR ---
PT ENDORSED TO ASSEMBLY HAND NURSE IN STABLE CONDITION
--- NOTE | 2018-10-31 19:23 | NUR ---
RECEIVED BEDSIDE REPORT FROM AM SHIFT, PT IS AWAKE AND ALERT,O, X 4, BEDREST. NO S/S OF ACUTE DISTRESS. PT IS ON ROOM AIR. WITH RUE PICC LINE INFUSING TPN 79.67 ML/HR. INFUSING WELL, PATENT AND INTACT. PT W/ COLOSTOMY ON LEFT SIDE ABDOMEN. W/ DRESSING CHANGE C/O SURGEON. PATIENT REFUSED TO HAVE NURSE ASSESS WOUNDS ON LEGS AND PRESSURE ULCER SACROCOCCYX. CONTACT ISOLATION IN PLACE, FALL PRECAUTIONS IN PLACE. CALL LIGHT IS WITHIN REACH.
[2018-10-31 20:00] VITALS: BP 102/55
[2018-10-31] MEDS: DEXTROSE IV SCH ×4 (20:38)
[2018-10-31] MEDS: [UNRECOGNIZED DRUG - OTHER] IV SCH ×4 (20:38)
[2018-10-31] MEDS: MULTIVITAMIN IV SCH ×4 (20:38)
[2018-10-31] MEDS: AMINO ACIDS IV SCH ×4 (20:38)
--- NOTE | 2018-10-31 20:39 | NUR ---
TPN CHANGED AND TUBINGS WELL, PT TOLERATED TPN ADMINISTRATION, NO COMPLAINTS AT THIS TIME. EXPLAINED THE INDICATION OF THE TPN, AND TO WATCH OUT FOR SIDE EFFECTS
--- NOTE | 2018-10-31 20:39 | NUR ---
PT C/O OF GENERALIZED PAIN ON WOUND AND PRESSURE ULCER, NARCOTIC DEPENDENCE. EXPLAINED THE RISKS AND SIDE EFFECTS, PT CRYING IN PAIN, DILAUDID ADMINISTERED. TOLD THE PT TO WAIT AFTER 4 HRS (GOAL TO DECREASE DEPENDENCE)
[2018-11-01] MEDS: HYDROmorphone PFS 2 MG/ML SYR IVP PRN ×12 (00:03→22:17)
--- NOTE | 2018-11-01 00:03 | NUR ---
PT ASKING FOR PAIN MEDS AGAIN. EXPLAINED THE SIDE EFFECTS AND PT ACKNOWLEDGED. ADMINISTERED DILAUDID
[2018-11-01] MEDS: BLOOD GLUCOSE MONITORING 1 DEV DEV FS SCH ×4 (00:05→18:15)
--- NOTE | 2018-11-01 02:19 | NUR ---
ASKING FOR PAIN MEDS AGAIN. EXPALAINED THAT HE HAS TO TRY TO WAIT AFTER 4 HRS FOR THE GOAL TO DECREASE DEPENDENCE. PT ABLE TO UNDERSTAND. PT GRIMACING IN PAIN. ADMINISTERED DILAUDID
--- NOTE | 2018-11-01 04:49 | NUR ---
PAIN MEDS GIVEN, PICC LINE DRESSING TO BE DONE, PT FACIAL GRIMACING WHEN STARTED TAKING OFF PICCLINE DRESSING, LAST CHANGE OF DRESSING WAS OCT 20, 2018. TODAY 11/01/18-PICC LINE DRESSING CHANGED
--- NOTE | 2018-11-01 06:11 | NUR ---
NO BOWEL MOVEMENT VIA COLOSTOMY
--- NOTE | 2018-11-01 06:23 | NUR ---
PATIENT AWAKE,A O, X 4. PT IN STABLE CONDITION. AWAITING NEXT SCHEDULE OF DRESSING CHANGE. WILL ENDORSE TO NEXT SHIFT
--- NOTE | 2018-11-01 07:18 | NUR ---
RECEIVED REPORT FROM SPEECH THERAPIST TECHNICIAN NURSE. PT AAOX4, VSS, NO C/O PAIN AT THIS TIME. NOTED RT UA DOUBLE LUMEN PICC LINE, ONE PORT RUNNING TPN PER ORDER AND ONE ON SALINE LOCK. RESPIRATIONS EVEN AND UNLABORED ON RA. NOTED EMPTY COLOSTOMY BAG ON RT QUADRANT, ACTIVE BS, SOFT ABD. PT HAS HX MULTIPLE GONZALES; WOUND DEBRIDEMENT AND DRESSING CHANGED DONE BY DR. CAICEDO; NOTED RT BKA. PT ON FALL RISK PRECAUTIONS, CALL LIGHT WITHIN REACH. REVIEWED POC WITH PT, PT VERBALIZED UNDERSTANDING.
[2018-11-01 08:00] VITALS: BP 117/60
[2018-11-01] MEDS: DULoxetine 30 MG CAPDR PO SCH (08:47)
[2018-11-01] MEDS: DOCUSATE SODIUM 100 MG GELCAP PO SCH (08:47)
--- NOTE | 2018-11-01 08:47 | NUR ---
PT GIVEN MORNING MEDICATIONS AND DILAUDID FOR LEVEL 8/10 TO BILATERAL LEGS. WILL REASSESS WITH 1 HOUR.
--- NOTE | 2018-11-01 10:47 | NUR ---
PT GIVEN DILAUDID PER ORDER FOR LEVEL 7/10 TO BILATERAL LEGS, WILL REASSESS WITHIN 1 HOUR.
[2018-11-01 11:24] LABS: ALBUMIN 1.8 g/dL (3.4-5.0); ANION GAP 11.6 (8-16); CARBON DIOXIDE 28.5 mmol/L (21-32); POTASSIUM 4.1 mmol/L (3.5-5.1); TOTAL BILIRUBIN 0.2 mg/dL (0.0-1.0)
--- NOTE | 2018-11-01 11:40 | NUR ---
BLOOD SUGAR CHECKED AT 122, PT HAS NO SIGNS OF HYPERGLYCEMIA.
--- NOTE | 2018-11-01 13:22 | NUR ---
NOTIFIED PHARMACY THAT DILAUDID WAS NOT GIVEN, ACCIDENTALLY WASTED IN PT'S ROOM.
--- NOTE | 2018-11-01 14:25 | NUR ---
CALLED DR VIDES CELL PHONE ,LEFT A MESSAGE FOR REMINDER THAT TO COME AND SEE PATIENT.
--- NOTE | 2018-11-01 14:32 | NUR ---
PAGED DR. VIDES'S OFFICE, AWAITING CALL BACK.
[2018-11-01 16:00] VITALS: BP 100/58
--- NOTE | 2018-11-01 16:28 | NUR ---
PT HAS NO C/O PAIN AT THIS TIME.
--- NOTE | 2018-11-01 19:05 | NUR ---
ENDORSED PT TO ARMOR SENIOR SERGEANT NURSE. PT HAS NO SIGNS OF DISTRESS AT THIS TIME.
--- NOTE | 2018-11-01 19:06 | NUR ---
RECEIVED BEDSIDE REPORT FROM LAURA RN, PT STABLE, NO DISTRESS NOTED, CENTRAL LINE TO R UPPER ARM, PATENT INTACT, INFUSING WELL, PT ON ROOM AIR, NO SOB NOTED, COLOSTOMY BAG IN PLACE, INITIAL ASSESSMENT DONE, ALL SAFETY PRECAUTION MET, CALL LIGHT WITHIN REACH, WILL CONTINUE TO MONITOR.
[2018-11-01] MEDS: MULTIVITAMIN IV SCH ×4 (20:15)
[2018-11-01] MEDS: DEXTROSE IV SCH ×4 (20:15)
[2018-11-01] MEDS: AMINO ACIDS IV SCH ×4 (20:15)
[2018-11-01] MEDS: [UNRECOGNIZED DRUG - OTHER] IV SCH ×4 (20:15)
--- NOTE | 2018-11-01 20:15 | NUR ---
TPN BAG AND TUBING CHANGED, PT TOLERATED WELL, PT C/O PAIN, PAIN MEDICATION PER MD ORDER ADMINISTERED, PT TOLERATED WELL, NO DISTRESS NOTED, CALL LIGHT WITHIN REACH, WILL CONTINUE TO MONITOR.
[2018-11-02] VITALS: BP 103/51
[2018-11-02] MEDS: HYDROmorphone PFS 2 MG/ML SYR IVP PRN ×10 (00:22→22:17)
--- NOTE | 2018-11-02 00:22 | NUR ---
PT C/O PAIN, PAIN MEDICATION ADMINISTERED, PT TOLERATED WELL, NO DISTRESS NOTED, V/S TAKEN WITHIN PT BASELINE, CALL LIGHT WITHIN REACH, WILL CONTINUE TO MONITOR.
[2018-11-02] MEDS: BLOOD GLUCOSE MONITORING 1 DEV DEV FS SCH ×4 (00:30→18:29)
--- NOTE | 2018-11-02 02:31 | NUR ---
PT C/O PAIN, PAIN MEDICATION ADMINISTERED, PT TOLERATED WELL, NO DISTRESS NOTED, CALL LIGHT WITHIN REACH, WILL CONTINUE TO MONITOR.
--- NOTE | 2018-11-02 04:43 | NUR ---
PT C/O PAIN, PAIN MEDICATION ADMINISTERED, PT TOLERATED WELL, NO DISTRESS NOTED, CALL LIGHT WITHIN REACH, WILL CONTINUE TO MONITOR.
--- NOTE | 2018-11-02 07:20 | NUR ---
ENDORSED PT TO DAY SHIFT NURSE EDNA CAPPS, PT STABLE, NO DISTRESS NOTED, CALL LIGHT WITHIN REACH.
--- NOTE | 2018-11-02 07:25 | NUR ---
RECEIVED REPORT FROM RADIOSONDE OPERATOR NURSE. PATIENT IS ON ROOM AIR, RESTING QUIETLY IN BED. WILL CONTINUE CARE FOR THE DAY. PT SCHEDULED TO HAVE DEBRIDEMENT AT 1230 TODAY IN THE OR FOR WOUND DRESSING CHANGE
[2018-11-02 08:00] VITALS: BP 110/53
[2018-11-02 08:38] LABS: BASOPHILS % (AUTO) 0.7 % (0.0-2.0); EOSINOPHILS # (AUTO) 0.4 K/uL (0-0.4); EOSINOPHILS % (AUTO) 5.8 % (0.0-4.0); HEMATOCRIT 28.9 % (36-52); HEMOGLOBIN 9.3 g/dL (12.0-18.0); LYMPHOCYTES # (AUTO) 1.5 K/uL (2.0-11.5); LYMPHOCYTES % (AUTO) 22.9 % (20.5-51.1); MEAN CORPUSCULAR HEMOGLOBIN 30 pg (27-31); MEAN CORPUSCULAR HGB CONC 32 g/dL (33-37); MEAN CORPUSCULAR VOLUME 92.6 fL (80-94); MONOCYTES % (AUTO) 14.4 % (1.7-9.3); NEUTROPHILS # (AUTO) 3.8 K/uL (1.8-7.7); NEUTROPHILS % (AUTO) 56.2 % (42.2-75.2); PLATELET COUNT (AUTO) 469 K/uL (140-450); RED BLOOD CELL COUNT(AUTO) 3.12 MIL/uL (4.20-6.10); RED CELL DISTRIBUTION WIDTH 16.7 % (11.6-13.7); WHITE BLOOD COUNT (AUTO) 6.7 K/uL (4.8-10.8)
[2018-11-02] MEDS: DULoxetine 30 MG CAPDR PO SCH (08:44)
[2018-11-02] MEDS: DOCUSATE SODIUM 100 MG GELCAP PO SCH (08:44)
--- NOTE | 2018-11-02 08:48 | NUR ---
ADMINISTERED PAIN MEDICATION FOR PAIN 11/18. WILL RE-ASSESS
[2018-11-02 09:16] LABS: MAGNESIUM 2.1 mg/dL (1.8-2.4); PHOSPHORUS 5.5 mg/dL (2.5-4.9)
[2018-11-02 09:22] LABS: ALBUMIN 1.8 g/dL (3.4-5.0); CARBON DIOXIDE 29.1 mmol/L (21-32); CREATININE 1.1 mg/dL (0.7-1.3); POTASSIUM 4.1 mmol/L (3.5-5.1); TOTAL BILIRUBIN 0.1 mg/dL (0.0-1.0)
--- NOTE | 2018-11-02 10:17 | NUR ---
RECEIVED A CALL FROM DR PEEWEE SMITH (PAIN MANAGEMENT ) UPDATED PT STATUS AND CONDITION , DR VIDES STATED HE HAS SURGERY TODAY MIGHT SEE HIM TONIGHT OR TOMORROW NIGHT
--- NOTE | 2018-11-02 10:57 | NUR ---
MEDICATED PATIENT FOR PAIN 11/18. WILL RE-ASSESS PAIN LEVEL
--- NOTE | 2018-11-02 11:15 | NUR ---
PATIENT IS OFF THE UNIT AND GOING TO OR FOR WOUND DEBRIDEMENT WITH DR. Raine MARCIAL STABLE PRIOR TO LEAVING THE FLOOR.
[2018-11-02] MEDS ORDERED: MIDAZOLAM 2 MG/2 ML VIAL ONE (11:54)
[2018-11-02] MEDS ORDERED: KETAMINE 500 MG/5 ML VIAL ONE (11:54)
[2018-11-02] MEDS ORDERED: ONDANSETRON 4 MG/2 ML VIAL IVP PRN (12:15)
[2018-11-02] MEDS ORDERED: HYDROmorphone 1 MG/ML AMP IVP PRN (12:15)
[2018-11-02] MEDS: AMINO ACIDS IV SCH ×8 (13:00→19:50)
[2018-11-02] MEDS: [UNRECOGNIZED DRUG - OTHER] IV SCH ×8 (13:00→19:50)
[2018-11-02] MEDS: DEXTROSE IV SCH ×8 (13:00→19:50)
[2018-11-02] MEDS: MULTIVITAMIN IV SCH ×8 (13:00→19:50)
--- NOTE | 2018-11-02 13:40 | NUR ---
PATIENT IS BACK ON UNIT FROM OR. VITAL SIGNS ARE BP 132/75, LA 100, O2 100% AND TEMP 97.2. NO SIGNS OF RESP DISTRESS.
[2018-11-02 16:00] VITALS: BP 137/70
--- NOTE | 2018-11-02 17:59 | NUR ---
PT C/O OF PAIN AND IS NOT DUE YET FOR ANOTHER MEDICATION DOSE. MOTHER AT BEDSIDE INSISTED TO CALL MD. SPOKE TO DR MILLER, PER DR TO INCREASE FENTANYL PATCH TO 50MG AND A ONE TIME DOSE OF DILAUDID 2MG.
[2018-11-02] MEDS ORDERED: HYDROmorphone PFS 2 MG/ML SYR IVP SCH (18:10)
--- NOTE | 2018-11-02 18:12 | NUR ---
ADMINISTERED ONE TIME DOSE OF DILAUDID FOR PAIN 11/18
--- NOTE | 2018-11-02 19:30 | NUR ---
RECEIVED PT IN STABLE CONDITION FROM AM NURSE. FOR CONTINUITY OF CARE. AWAKE,ALERT AND ORIENTED X4. MED SURG PT. WITH NO DISTRESS NOTED. BEDREST. WOUNDS WITH DRESSING. HAS IVF INFUSING WELL ON THE RT UPPER ARM PICC LINE. CLEAR AND PATENT. PLAN OF CARE DISCUSSED AND PT/FAMILY VERBALIZED UNDERSTANDING. BED ON LOW POSITION. SIDE RAILS UP X2. CALL LIGHT WITHIN EASY REACH. WILL CONTINUE TO MONITOR.
[2018-11-02] MEDS: fentaNYL 0.05 MG/HR PATCH TD SCH (20:12)
--- NOTE | 2018-11-02 22:00 | NUR ---
C/O SEVERE PAIN . WILL MEDICATE ORDERED.
[2018-11-03 00:04] VITALS: BP 114/71
[2018-11-03] MEDS: HYDROmorphone PFS 2 MG/ML SYR IVP PRN ×11 (00:06→22:28)
[2018-11-03] MEDS: BLOOD GLUCOSE MONITORING 1 DEV DEV FS SCH ×4 (00:11→18:38)
--- NOTE | 2018-11-03 01:00 | NUR ---
RECEIVED BEDSIDE REPORT FROM DIGITAL LEARNING PLATFORMS MANAGER RN KEESHA. PT RESTING IN BED AWAKE WATCHING TV. ABLE TO MAKE NEEDS KNOWN. WILL CONTINUE TO MONITOR.
--- NOTE | 2018-11-03 01:00 | NUR ---
ENDORSED PT IN STABLE CONDITION TO GÉNESIS KEENAN CONTINUITY OF CARE.
--- NOTE | 2018-11-03 02:18 | NUR ---
PAIN 10/10 REPORTED. WILL ADMINISTER PRN PAIN MED. VSS.
--- NOTE | 2018-11-03 04:34 | NUR ---
MEDICATED WITH PRN. WILL REASSESS. EMPTIED 400 CC FROM URINAL. WILL CONTINUE TO MONITOR.
--- NOTE | 2018-11-03 05:49 | NUR ---
BLOOD SUGAR 114. NO COVERAGE NEEDED.
--- NOTE | 2018-11-03 06:10 | NUR ---
WILL ENDORSE PT TO DAYSHIFT RN. PT IN STABLE CONDITION, SLEEPING IN BED. WILL CONTINUE TO MONITOR.
--- NOTE | 2018-11-03 07:25 | NUR ---
RECEIVED REPORT FROM HAZARDOUS WASTE REMOVER NURSE FOR CONTINUITY OF CARE. PT IN STABLE CONDITION. RESPIRATIONS EVEN AND UNLABORED. IV ACCESS INTACT AND PATENT. SAFETY MEASURES IN PLACE. BED IN LOW POSITION. CALL LIGHT AT BEDSIDE. BED ALARM ON. WILL CONTINUE TO MONITOR.
[2018-11-03 08:00] VITALS: BP 107/61
[2018-11-03] MEDS: DOCUSATE SODIUM 100 MG GELCAP PO SCH (09:00)
--- NOTE | 2018-11-03 09:12 | NUR ---
PT REFUSED DOCUSATE SODIUM AT THIS TIME. PT STATED HE DID NOT FEEL LIKE SWALLOWING A PILL AT THIS TIME. PT IN STABLE CONDITION. BED IN LOW POSITION. BED ALARM ON. CALL LIGHT AT BEDSIDE. WILL CONTINUE TO MONITOR.
[2018-11-03 10:14] LABS: ALBUMIN 1.7 g/dL (3.4-5.0); ANION GAP 12.4 (8-16); CARBON DIOXIDE 25.6 mmol/L (21-32); PHOSPHORUS 5.3 mg/dL (2.5-4.9); TOTAL BILIRUBIN 0.2 mg/dL (0.0-1.0)
--- NOTE | 2018-11-03 11:33 | NUR ---
PT WATCHING SHOWS ON PHONE. BED IN LOW POSITION. CALL LIGHT AT BEDSIDE. BED ALARM ON. WILL CONTINUE TO MONITOR.
--- NOTE | 2018-11-03 13:08 | NUR ---
GAVE PAIN MEDICATION PER PT REQUEST. BED IN LOW POSITION. CALL LIGHT AT BEDSIDE. BED ALARM ON. WILL CONTINUE TO MONITOR.
--- NOTE | 2018-11-03 15:00 | NUR ---
PT LYING IN BED WITH FAMILY AT BEDSIDE. BED IN LOW POSITION. CALL LIGHT AT BEDSIDE. BED ALARM ON. WILL CONTINUE TO MONITOR.
--- NOTE | 2018-11-03 16:48 | NUR ---
CALLED MAYLIN CARVAJAL FOR DIALYSIS ORDER. EXPLAINED PT NEEDS DIALYSIS TODAY AND TO CALL CATY AND HAVE CATY CALL DR. KLEIN FOR VERBAL ORDERS. SPOKE TO CATY WHO VERBALIZED UNDERSTANDING OF PT NEED FOR DIALYSIS. Addendum: 11/03/18 at 1651 by Марина Maciel RN WRONG PT DISREGARD NOTE.
--- NOTE | 2018-11-03 18:13 | NUR ---
GAVE PRN PAIN MEDICATION PER PT REQUEST. PT IN STABLE CONDITION. BED IN LOW POSITION. CALL LIGHT AT BEDSIDE. BED ALARM ON. WILL CONTINUE TO MONITOR.
--- NOTE | 2018-11-03 19:00 | NUR ---
DR. VIDES -PAIN MANAGEMENT CAME TO SEE PT. PER DR. VIDES HE DICTATED HIS RECOMMENDATIONS. DR. VIDES'S DICTATION NOT SEEN IN [facility] YET.
--- NOTE | 2018-11-03 19:25 | NUR ---
GAVE REPORT TO ASSOCIATE NURSE FOR CONTINUITY OF CARE. PT IN STABLE CONDITION.
--- NOTE | 2018-11-03 19:26 | NUR ---
RECEIVED REPORT FROM AM SHIFT NURSE FOR CONTINUITY OF CARE. PT IBEDMAKAYLAT, A, A O X 4. RESPIRATIONS EVEN AND UNLABORED. PICC LINE IV ACCESS, INTACT AND PATENT. DRESSINGS IN PLACE. PATIENT REFUSED WOUND CARE TO BE DONE BY NURSE. DEBRIDEMENT DONE BY DR. CAICEDO. SAFETY MEASURES IN PLACE. BED IN LOW POSITION. CALL LIGHT AT BEDSIDE. BED ALARM ON. WILL CONTINUE TO MONITOR.
[2018-11-03 20:00] VITALS: BP 110/57
--- NOTE | 2018-11-03 20:00 | NUR ---
OFFERED TO TURN PATIENT, PATIENT REFUSED TURNING
--- NOTE | 2018-11-03 20:45 | NUR ---
PT C/O OF PAIN / ON BURN WOUNDS AND PRESSURE ULCER. MEICATED W/ DILAUDID Q 2 ORDERED PRN
[2018-11-03] MEDS: [UNRECOGNIZED DRUG - OTHER] IV SCH ×4 (20:54)
[2018-11-03] MEDS: DEXTROSE IV SCH ×4 (20:54)
[2018-11-03] MEDS: MULTIVITAMIN IV SCH ×4 (20:54)
[2018-11-03] MEDS: AMINO ACIDS IV SCH ×4 (20:54)
[2018-11-04] MEDS: BLOOD GLUCOSE MONITORING 1 DEV DEV FS SCH ×4 (00:39→21:00)
[2018-11-04] MEDS: HYDROmorphone PFS 2 MG/ML SYR IVP PRN ×12 (00:40→22:40)
--- NOTE | 2018-11-04 00:47 | NUR ---
CHANGED COLOSTOMY BAG W/ FECAL CONTENT MAX AMOUNT, FORMED STOOL, YELLOWISH BROWN IN COLOR
[2018-11-04 04:00] VITALS: BP 100/50
--- NOTE | 2018-11-04 04:27 | NUR ---
PT HAS HAIR ALL OVER THE FLOOR, CALLED [facility]. PT HAS ALSO HAIR ALL OVER HIS BED INFORMED PT IF WE COULD CHANGE BLANKET, BEDDINGS AND PT REFUSED. EXPLAINED THE RISKS AND BENEFITS AND THAT FOR INFECTION CONTROL . INFORMED POWERHOUSE ELECTRICIAN APPRENTICE TO CHANGE THE BLANKETS
--- NOTE | 2018-11-04 05:00 | NUR ---
SUPERVISOR DECORATING WENT AND CHECKED THE PT, CHANGED THE BLANKETS. HSKPING STILL DID NOT SHOW UP WITH 2X PAGE.
--- NOTE | 2018-11-04 06:24 | NUR ---
PT SLEEPING BUT EASILY AROUSABLE BY VERBAL STIMULI. NO RESPIRATORY DISTRESS. NO COMPLAINS OF PAIN YET AT THSI TIME. PT STILL REFUSING CARE. CHANGED THE COLOSTOMY BAG WITHIN THE SHIFT. WILL ENDORSE TO NEXT SHIFT
--- NOTE | 2018-11-04 06:52 | NUR ---
PAGED AGAIN HSKPING THROUGH HOSPITAL ANIMAL THERAPIST TO CLEAN FLOOR INSIDE THE ROOM JYOTI UNDR THE BED, WITH PATIENT;S HAIR ALL OVER FLOOR.
--- NOTE | 2018-11-04 07:21 | NUR ---
RECEIVED ENDORSEMENT FROM BULL FLOAT FINISHER NURSE. PATIENT IS AAOX4, [place] SPEAKING. RESPIRATIONS ARE EVEN AND UNLABORED ON ROOM AIR. PATIENT DENIES ANY PAIN AT THIS TIME. PICC LINE TO RIGHT ARM INTACT, PATENT, AND INFUSING TPN. PLAN OF CARE WAS REVIEWED WITH PATIENT, PATIENT VERBALIZED UNDERSTANDING. SAFETY MEASURES IN PLACE, CALL LIGHT WITHIN REACH.
[2018-11-04 08:00] VITALS: BP 106/67
[2018-11-04] MEDS: DOCUSATE SODIUM 100 MG GELCAP PO SCH (08:43)
--- NOTE | 2018-11-04 08:43 | NUR ---
ADMINISTERED SCHEDULED MEDICATIONS. PATIENT TOLERATED WELL. NO OTHER NEEDS AT THIS TIME.
[2018-11-04 09:17] LABS: MAGNESIUM 1.9 mg/dL (1.8-2.4); PHOSPHORUS 5.1 mg/dL (2.5-4.9)
--- NOTE | 2018-11-04 10:54 | NUR ---
ADMINISTERED PAIN MEDICATION, PATIENT TOLERATED WELL. GAVE PATIENT SOME ICE. NO OTHER NEEDS AT THIS TIME, WILL CONTINUE TO MONITOR.
[2018-11-04 12:11] LABS: ANION GAP 11.2 (8-16); CARBON DIOXIDE 28.7 mmol/L (21-32); POTASSIUM 3.9 mmol/L (3.5-5.1)
[2018-11-04] MEDS: ONDANSETRON 4 MG/2 ML VIAL IVP PRN (12:42)
--- NOTE | 2018-11-04 12:43 | NUR ---
ADMINISTERED PAIN MEDICATION. MOM AT THE BEDSIDE. PATIENT VOMITED APPROX. 100 ML. ADMINISTERED ZOFRAN PRN IVP FOR N/V. NO OTHER NEEDS AT THIS TIME, WILL CONTINUE TO MONITOR.
--- NOTE | 2018-11-04 13:49 | NUR ---
11/04/18 RD FOLLOW UP COMPLETED PLEASE REFER TO NUTRITION ASSESSMENT UNDER CARE ACTIVITY FOR ESTIMATED NUTRITIONAL NEEDS. 1. CONTINUE TPN TO D16.8%, AA 4.25% AT 80ML/HR AND LIPIDS 20%(200 ML) TOLERATED -THIS WILL PROVIDE PATIENT WITH 1820 KCAL, 81 GM OF PROTEIN 2. ENCOURAGE INCREASING PO INTAKE OF PROTEIN PORTIONS FIRST THEN CARBOHYDRATES AND LIQUIDS 3. CONTINUE REGULAR DIET TOLERATED WITH SUPPLEMENTS BROUGHT FROM HOME 4. RD WILL FOLLOW UP 2-3 DAYS, HIGH RISK ALEXEI JOHNSTON RD
--- NOTE | 2018-11-04 14:07 | NUR ---
PATIENT RESTING IN BED. PATIENT REQUESTED PAIN MEDICATED AND REMINDED PATIENT THAT IT IS NOT DUE YET. NO OTHER NEEDS AT THIS TIME, WILL CONTINUE TO MONITOR.
[2018-11-04 16:00] VITALS: BP 119/69
[2018-11-04] MEDS ORDERED: HYDROmorphone 1 MG/ML AMP IVP SCH (16:15)
--- NOTE | 2018-11-04 16:59 | NUR ---
PATIENT WATCHING TV, MOM AT BEDSIDE. NO OTHER NEEDS AT THIS TIME. WILL CONTINUE TO MONITOR.
--- NOTE | 2018-11-04 17:59 | NUR ---
PATIENT RESTING IN BED. NO OTHER NEEDS AT THIS TIME. WILL CONTINUE TO MONITOR.
--- NOTE | 2018-11-04 19:23 | NUR ---
ENDORSED TO OPERATIONS SUPPORT REPRESENTATIVE NURSE FOR CONTINUITY OF CARE. PATIENT IS STABLE AT THIS TIME.
--- NOTE | 2018-11-04 19:23 | NUR ---
RECIEVED PT. AAOX4 , NID , ON PICC LINE - INTACT AND PATENT - ON TPN - INFUSING WELL , WITH C/O OF BODY ACHES AND PAIN ON THE WOUND . DRESSING INTACT - NO ACTIVE BLEEDING NOTED AT THIS TIME , PLAN OF CARE DISCUSSED AND VERBALIZE UNDERSTANDING . Addendum: 11/05/18 at 0206 by Ashlyn Goodwin RN ON SAFETY /FALL PRECAUTION PROTOCOL -CALL LIGHT WITHIN REACH , COLOSTOMY INTACT AND PATENT - SOFT ABDOMEN , WILL CONT. TO MONITOR.
[2018-11-04] MEDS: [UNRECOGNIZED DRUG - OTHER] IV SCH ×4 (19:57)
[2018-11-04] MEDS: AMINO ACIDS IV SCH ×4 (19:57)
[2018-11-04] MEDS: DEXTROSE IV SCH ×4 (19:57)
[2018-11-04] MEDS: MULTIVITAMIN IV SCH ×4 (19:57)
--- NOTE | 2018-11-04 22:00 | NUR ---
MADE ROUNDS , RESP. EVEN AND UNLABORED , CALL LOIGHT WITHIN REACH , WILL CONT. TO MONITOR.
[2018-11-05] VITALS: BP 116/62
--- NOTE | 2018-11-05 | NUR ---
MADE ROUNDS , RESP. EVEN AND UNLABORED , WILL CONT. TO MONITOR - CALL LIGHT WITHIN REACH.
[2018-11-05] MEDS: HYDROmorphone PFS 2 MG/ML SYR IVP PRN ×11 (00:52→22:01)
--- NOTE | 2018-11-05 02:00 | NUR ---
MADE ROUNDS , NO DISTRESS NOTED AT THIS TIME.
--- NOTE | 2018-11-05 04:00 | NUR ---
MADE ROUNDS , NO DISTRESS NOTED AT THIS TIME , CALL LIGHT WITHIN REACH
--- NOTE | 2018-11-05 07:20 | NUR ---
ENDORSEDE TO AM SHIFT WITH LBP 110/60 ,NID.
--- NOTE | 2018-11-05 07:21 | NUR ---
RECEIVED ENDORSEMENT FROM FUR TAILOR NURSE. PATIENT IS AAOX4, ITALIAN SPEAKING. RESPIRATIONS ARE EVEN AND UNLABORED ON ROOM AIR. PATIENT DENIES ANY PAIN AT THIS TIME. PICC LINE TO RIGHT ARM INTACT, PATENT, AND INFUSING TPN. PLAN OF CARE WAS REVIEWED WITH PATIENT, PATIENT VERBALIZED UNDERSTANDING. SAFETY MEASURES IN PLACE, CALL LIGHT WITHIN REACH.
[2018-11-05 08:00] VITALS: BP 103/57
[2018-11-05] MEDS: DOCUSATE SODIUM 100 MG GELCAP PO SCH (09:03)
[2018-11-05] MEDS: BLOOD GLUCOSE MONITORING 1 DEV DEV FS SCH ×2 (09:17→21:15)
--- NOTE | 2018-11-05 09:18 | NUR ---
ADMINISTERED SCHEDULED MEDICATIONS. PATIENT TOLERATED WELL. NO OTHER NEEDS AT THIS TIME, WILL CONTINUE TO MONITOR.
[2018-11-05 09:21] LABS: PHOSPHORUS 4.7 mg/dL (2.5-4.9)
[2018-11-05 10:09] LABS: POTASSIUM 3.8 mmol/L (3.5-5.1)
[2018-11-05 10:25] LABS: ANION GAP 12.8 (8-16)
--- NOTE | 2018-11-05 11:27 | NUR ---
PATIENT RESTING IN BED. NO OTHER NEEDS AT THIS TIME.
--- NOTE | 2018-11-05 13:52 | NUR ---
PATIENT IN BED WATCHING TV. NO OTHER NEEDS AT THIS TIME.
--- NOTE | 2018-11-05 15:54 | NUR ---
PATIENT IN BED, NO OTHER NEEDS AT THIS TIME.
[2018-11-05 16:00] VITALS: BP 134/64
--- NOTE | 2018-11-05 17:56 | NUR ---
PATIENT RESTING IN BED. NO OTHER NEEDS AT THIS TIME, WILL CONTINUE TO MONITOR.
[2018-11-05] MEDS: ONDANSETRON 4 MG/2 ML VIAL IVP PRN (17:58)
--- NOTE | 2018-11-05 19:20 | NUR ---
RECEIVED PT FROM AM NURSE. PT AT BED AWAKE PERRLA 3MM, HEART RATE REGULAR, S1S2 PRESENT, CAP REFILL <3S, PULSES 2+ BILATERAL UPPER EXTREMITIES, PULSES 2+ BILATERAL LOWER EXTREMITIES, LUNG SOUNDS CLEAR THROUGHOUT, PT ON ROOM AIR, ABDOMEN, SOFT, ROUND, NONDISTENDED, NONTENDER, BLADDER SOFT, ROUND, NONDISTENDED, NONTENDER, PT HAS GENERALIZED WEAKNESS. SKIN NON INTACT, PT HAS SURGICAL DRESSINGS ON BILATERAL LOWER EXTREMITIES, DRESSING DRY AND INTACT, PT HAS HEALED SKIN GRAFT SCARS ON BILATERAL UPPER EXTREMITIES, SKIN, WARM, DRY, COLOR APPROPRIATE FOR ETHNICITY. PT REFUSED TO BE TURNED, PT SAID HE CAN TURN INDEPENDENTLY. PT HAS RIGHT UPPER ARM PICC LINE, INFUSING TPN AT 79 ML/HR. HOB 30 DEGREES, SIDE RAILS UP X2, BED AT LOWEST POSITION. WILL CONTINUE TO MONITOR. Addendum: 11/06/18 at 0000 by Gibson Holloway RN RIGHT BKA, COLOSTOMY APPLIANCE IN PLACE
--- NOTE | 2018-11-05 19:25 | NUR ---
ENDORSED PATIENT TO PRINTING PRESS OPERATOR APPRENTICE NURSE FOR CONTINUITY OF CARE. PATIENT IS STABLE AT THIS TIME.
[2018-11-05] MEDS: fentaNYL 0.05 MG/HR PATCH TD SCH (21:00)
[2018-11-05] MEDS: [UNRECOGNIZED DRUG - OTHER] IV SCH ×4 (21:05)
[2018-11-05] MEDS: DEXTROSE IV SCH ×4 (21:05)
[2018-11-05] MEDS: AMINO ACIDS IV SCH ×4 (21:05)
[2018-11-05] MEDS: MULTIVITAMIN IV SCH ×4 (21:05)
[2018-11-06] VITALS: BP 90/72
--- NOTE | 2018-11-06 00:06 | NUR ---
PAIN MEDICATION GIVEN. TEMP 101.2 F, TYLENOL GIVEN. WILL CONTINUE TO MONITOR.
[2018-11-06] MEDS: HYDROmorphone PFS 2 MG/ML SYR IVP PRN ×12 (00:17→22:43)
[2018-11-06] MEDS: ACETAMINOPHEN 325 MG TAB PO PRN (00:49)
--- NOTE | 2018-11-06 01:00 | NUR ---
PT TEMP DOWN TO 98.9 F. AXILLARY. WILL CONTINUE TO MONITOR.
--- NOTE | 2018-11-06 03:04 | NUR ---
PT AT BED EYES CLOSED, BREATHING REGULARLY ON ROOM AIR, HOB 30 DEGREES, SIDE RAILS UP X2, BED AT LOWEST POSITION.
--- NOTE | 2018-11-06 05:14 | NUR ---
PT AT BED EYES CLOSED, BREATHING REGULARLY AT ROOM AIR, HOB 30 DEGREES, SIDE RAILS UP X2, BED AT LOWEST POSITION.
--- NOTE | 2018-11-06 07:29 | NUR ---
PT AT BED EYES CLOSED, BREATHING REGULARLY. HOB 30 DEGREES, SIDE RAILS UP X2, BED AT LOWEST POSITION.
--- NOTE | 2018-11-06 07:33 | NUR ---
RECEIVED HAND OFF REPORT FROM PM RN PT APPEARS STABLE AND IN NO APPARENT DISTRESS. ALL SAFETY MEASURES ARE IN PLACE WILL CONTINUE TO MONITOR.
[2018-11-06 08:05] VITALS: BP 103/48
[2018-11-06] MEDS: DOCUSATE SODIUM 100 MG GELCAP PO SCH ×2 (08:20→08:27)
--- NOTE | 2018-11-06 08:45 | NUR ---
PT REFUSED DOCUSATE SODIUM PT STATED DOES NOT FEEL WELL ENOUGH IN ORDER TO SWALLOW MEDICATIONS.
--- NOTE | 2018-11-06 09:23 | NUR ---
FREQUENT ROUNDING ON PT PT APPEARS STABLE AND IN NO APPARENT DISTRESS. ALL SAFETY MEASURES ARE IN PLACE, OFFERED TO REPOSITION PT PT REFUSED. WILL ASK AGAIN LATER
[2018-11-06] MEDS: ONDANSETRON 4 MG/2 ML VIAL IVP PRN (09:43)
[2018-11-06] MEDS: BLOOD GLUCOSE MONITORING 1 DEV DEV FS SCH ×2 (09:43→20:42)
--- NOTE | 2018-11-06 11:01 | NUR ---
11/06/18 RD FOLLOW UP COMPLETED PLEASE REFER TO NUTRITION ASSESSMENT UNDER CARE ACTIVITY FOR ESTIMATED NUTRITIONAL NEEDS. 1. CONTINUE REGULAR DIET AND TPN D16.8 AA4.25 RUNNING AT 80 ML/HR WITH 20% IL (200 ML). PROVIDES 1863 KCAL AND 81 G PROTEIN. 2. CONTINUE RODRIGUEZ BID FOR WOUND HEALING SUPPORT 3. RD TO FOLLOW-UP 2-3 DAYS, HIGH RISK REINA JEWELL, RD
--- NOTE | 2018-11-06 11:32 | NUR ---
FREQUENT ROUNDING ON PT PT APPEARS STABLE AND IN NO APPARENT DISTRESS. ALL SAFETY MEASURES ARE IN PLACE OFFERED TO REPOSITION PT PT STATED HE DID NOT WANT TO BE REPOSITIONED REMINDED PT OF THE RISKS OF REFUSING REPOSITIONING WILL CONTINUE TO MONITOR.
--- NOTE | 2018-11-06 12:35 | NUR ---
PAGED DR. WISEMAN FOR RENEWAL OF LAUERENID
--- NOTE | 2018-11-06 12:37 | NUR ---
SPOKE WITH DR. WISEMAN HE STATED WE CAN RENEW THE DILAUDID 2MG Q2H PRN FOR PAIN 7-10
--- NOTE | 2018-11-06 13:26 | NUR ---
FREQUENT ROUNDING ON PT PT APPEARS STABLE AND IN NO APPARENT DISTRESS. ALL SAFETY MEASURES ARE IN PLACE WILL CONTINUE TO MONITOR. OFFERED TO ASSIST PT REPOSITION. PT REFUSED. INFORMED PT OF THE RISKS OF REFUSING REPOSITIONING PT STATED HE IS AWARE,
--- NOTE | 2018-11-06 15:21 | NUR ---
FREQUENT ROUNDING ON PT PT APPEARS STABLE AND IN NO APPARENT DISTRESS. ALL SAFETY MEASURES ARE IN PLACE WILL CONTINUE TO MONITOR, PT REFUSING REPOSITIONING
[2018-11-06 16:40] VITALS: BP 103/56
--- NOTE | 2018-11-06 17:40 | NUR ---
FREQUENT ROUNDING ON PT PT APPEARS STABLE AND IN NO APPARENT DISTRESS. ALL SAFETY MEASURES ARE IN PLACE WILL CONTINUE TO MONITOR. PT STILL REFUSING REPOSITIONING PT STATED AWARE OF RISK
--- NOTE | 2018-11-06 19:09 | NUR ---
ENDORSED PT TO PM RN PT APPEARS STABLE AND IN NO APPARENT DISTRESS. ALL SAFETY MEASURES ARE IN PLACE. RIGHT UPPER EXTREMITY PICC INFUSING TPN AT 79ML/HR NO COMPLAINTS OF IRRITATION. NO DIFFICULTY INFUSING.
--- NOTE | 2018-11-06 19:10 | NUR ---
REPORT RECEIVED FROM AM NURSE AT BEDSIDE. PT IN STABLE CONDITION. AAOX4. INTRODUCED SELF TO PT. BOARD UPDATED. NO COMPLAINTS OF PAIN. ALREADY MEDICATED. NO SOB. AFEBRILE. IV SITE R UA PICC DOUBLE LUMEN SL AND RUNNING TPN@100ML/HR PATENT AND INTACT. SKIN WARM, DRY, AND NOT INTACT DUE TO MULTIPLE WOUNDS. BED LOCKED IN LOW POSITION. CALL CONN WITHIN REACH. SAFETY PRECAUTION IN PLACE. ALL NEEDS MET AT THIS TIME. Addendum: 11/06/18 at 2304 by Migue Newsome RN TPN RUNNING@79ML/HR.
[2018-11-06] MEDS: AMINO ACIDS IV SCH ×4 (20:20)
[2018-11-06] MEDS: [UNRECOGNIZED DRUG - OTHER] IV SCH ×4 (20:20)
[2018-11-06] MEDS: DEXTROSE IV SCH ×4 (20:20)
[2018-11-06] MEDS: MULTIVITAMIN IV SCH ×4 (20:20)
--- NOTE | 2018-11-06 20:20 | NUR ---
TPN HUNG AND RUNNING. DILAUDID GIVEN FOR 10/10 GENERAL PAIN. PT TOLERATED WELL. BS 107. NO INSULIN COVERAGE NEEDED.
--- NOTE | 2018-11-06 22:43 | NUR ---
DILAUDID GIVEN FOR 10/10 GENERAL PAIN. PT TOLERATED WELL.
[2018-11-07] VITALS: BP_SYST 45
[2018-11-07] MEDS: HYDROmorphone PFS 2 MG/ML SYR IVP PRN ×12 (00:48→23:19)
--- NOTE | 2018-11-07 00:48 | NUR ---
DILAUDID GIVEN FOR 10/10 GENERALIZED PAIN. PT TOLERATED WELL.
--- NOTE | 2018-11-07 02:52 | NUR ---
DILAUDID GIVEN FOR 10/10 GENERALIZED PAIN. PT TOLERATED WELL.
[2018-11-07] MEDS: ONDANSETRON 4 MG/2 ML VIAL IVP PRN (04:39)
--- NOTE | 2018-11-07 04:39 | NUR ---
ZOFRAN GIVEN FOR NAUSEA AND VOMITING. PT TOLERATED WELL.
--- NOTE | 2018-11-07 04:49 | NUR ---
DILAUDID GIVEN FOR 10/10 GENERALIZED PAIN. PT TOLERATED WELL.
--- NOTE | 2018-11-07 06:46 | NUR ---
DILAUDID GIVEN FOR 10/10 GENERALIZED PAIN. PT TOLERATED WELL.
--- NOTE | 2018-11-07 07:20 | NUR ---
REPORT RECEIVED FROM TOP EXECUTIVE NURSE AT BEDSIDE FOR CONTINUITY OF CARE. PT AAOX4. NO S/S OF SOB OR DISTRESS ON ROOM AIR. IV SITE R UA DOUBLE LUMEN RUNNING TPN@ 79ML/HR, PATENT, INTACT, AND ASYMPTOMATIC. PT MEDICATED FOR PAIN AT 0646. PT AWARE OF NEXT SCHEDULED DOSE. PT IS BEDBOUND. SKIN WARM, DRY, AND NOT INTACT DUE TO MULTIPLE CHRONIC WOUNDS. PATIENT HAS COLOSTOMY AND USES URINAL. URINAL EMPTIED OF 400 ML OF CLEAR YELLOW URINE. BOARD UPDATED, PLAN OF CARE DISCUSSED WITH PT. PT VERBALIZED UNDERSTANDING. SAFETY AND ISOLATION PRECAUTIONS IN PLACE, BED IN LOW POSITION. CALL LIGHT WITHIN REACH. WILL CONTINUE TO MONITOR PATIENT.
[2018-11-07 08:00] VITALS: BP 103/62
--- NOTE | 2018-11-07 08:45 | NUR ---
PRN DILAUDID GIVEN FOR 9/10 PAIN. PATIENT TOLERATED IT WELL. PATIENT REFUSING 0900 MEDICATION AND BLOOD SUGAR CHECKS AT THE MOMENT BECAUSE OF DISCOMFORT AND NAUSEA. PATIENT AGREEABLE TO TRY AT A LATER TIME. SAFETY AND ISOLATION PRECAUTIONS IN PLACE, CALL LIGHT WITHIN REACH, WILL CONTINUE TO MONITOR PATIENT.
[2018-11-07] MEDS: DOCUSATE SODIUM 100 MG GELCAP PO SCH ×2 (09:00→17:13)
[2018-11-07] MEDS: BLOOD GLUCOSE MONITORING 1 DEV DEV FS SCH ×2 (10:30→20:22)
--- NOTE | 2018-11-07 10:46 | NUR ---
PRN DILAUDID GIVEN FOR 9/10 PAIN. PATIENT TOLERATED IT WELL. NO COMPLAINTS OF NAUSEA AT THIS TIME. SAFETY AND ISOLATION PRECAUTIONS IN PLACE, CALL LIGHT WITHIN REACH, WILL CONTINUE TO MONITOR PATIENT.
[2018-11-07 12:26] LABS: CARBON DIOXIDE 27.2 mmol/L (21-32); CREATININE 0.9 mg/dL (0.7-1.3); POTASSIUM 3.2 mmol/L (3.5-5.1)
[2018-11-07 12:43] LABS: MAGNESIUM 1.9 mg/dL (1.8-2.4); PHOSPHORUS 3.9 mg/dL (2.5-4.9)
[2018-11-07 12:44] LABS: CHOL/HDL RATIO 5.2 (1-4.5)
--- NOTE | 2018-11-07 12:50 | NUR ---
PATIENT MEDICATED FOR 9/10 PAIN WITH PRN MEDICATION. PATIENT TOLERATED IT WELL. NO NAUSEA AT THIS TIME. LABS RESULTED. K 3.2, CALLED PHARMACY FOR PRN POTASSIUM RIDER IVF. PHARMACIST DELVIN INFORMED RN WILL BE NOTIFIED WHEN MEDICATION AVAILABLE. RN VERBALIZED UNDERSTANDING. SAFETY AND ISOLATION PRECAUTIONS IN PLACE, CALL LIGHT WITHIN REACH, WILL CONTINUE TO MONITOR PATIENT.
--- NOTE | 2018-11-07 13:31 | NUR ---
PRN POTASSIUM RIDER GIVEN TO PATIENT ORDERED. PATIENT TOLERATING IT WELL. MOTHER AT BEDSIDE. PATIENT RESTING WITH EYES CLOSED. NO COMPLAINTS AT THIS TIME. SAFETY AND ISOLATION PRECAUTIONS IN PLACE, CALL LIGHT WITHIN REACH, WILL CONTINUE TO MONITOR PATIENT.
--- NOTE | 2018-11-07 15:15 | NUR ---
PRN DILAUDID GIVEN FOR 10/19 PAIN. PATIENT TOLERATED IT WELL. NO COMPLAINTS OF NAUSEA AT THIS TIME. SAFETY AND ISOLATION PRECAUTIONS IN PLACE, CALL LIGHT WITHIN REACH, WILL CONTINUE TO MONITOR PATIENT. Addendum: 11/07/18 at 1852 by Rachid Whitfield RN 11/18 PAIN.
[2018-11-07 16:00] VITALS: BP 99/50
--- NOTE | 2018-11-07 17:15 | NUR ---
PRN DILAUDID GIVEN FOR 9/10 PAIN. PATIENT TOLERATED IT WELL. PATIENT ALSO AGREED TO TAKE COLACE. PATIENT'S COLOSTOMY HAS GAS AND FORMED STOOL, PATIENT DID NOT WANT BAG TO BE EMPTIED AT THIS TIME. NO COMPLAINTS OF NAUSEA AT THIS TIME. SAFETY AND ISOLATION PRECAUTIONS IN PLACE, CALL LIGHT WITHIN REACH, WILL CONTINUE TO MONITOR PATIENT.
--- NOTE | 2018-11-07 19:17 | NUR ---
PRN DILAUDID GIVEN FOR 9/10 PAIN. REPORT GIVEN TO HOUSEPERSON NURSE AT BEDSIDE FOR CONTINUITY OF CARE. ENDORSED PAIN REASSESSMENT. PATIENT IN STABLE CONDITION.
--- NOTE | 2018-11-07 19:18 | NUR ---
REPORT RECEIVED FROM AM NURSE AT BEDSIDE. PT IN STABLE CONDITION. AAOX4. INTRODUCED SELF TO PT. BOARD UPDATED. NO COMPLAINTS OF PAIN. ALREADY MEDICATED. NO SOB. AFEBRILE. PT IS BEDBOUND. PT HAS COLOSTOMY. PT ON TPN. IV SITE R UA DOUBLE LUMEN PICC SL PATENT AND INTACT. SKIN WARM, DRY, AND NOT INTACT DUE TO MULTIPLE WOUNDS. SEE WOUND NOTES. BED LOCKED IN LOW POSITION. CALL CONN WITHIN REACH. SAFETY PRECAUTION IN PLACE. ALL NEEDS MET AT THIS TIME.
[2018-11-07] MEDS: [UNRECOGNIZED DRUG - OTHER] IV SCH ×4 (20:14)
[2018-11-07] MEDS: MULTIVITAMIN IV SCH ×4 (20:14)
[2018-11-07] MEDS: DEXTROSE IV SCH ×4 (20:14)
[2018-11-07] MEDS: AMINO ACIDS IV SCH ×4 (20:14)
--- NOTE | 2018-11-07 20:14 | NUR ---
TPN HUNG AND RUNNING WITH NEW INFUSION SET. BS 83. NO INSULIN COVERAGE NEEDED.
--- NOTE | 2018-11-07 21:21 | NUR ---
DILAUDID GIVEN FOR 10/10 GENERALIZED PAIN. PT TOLERATED WELL.
--- NOTE | 2018-11-07 23:19 | NUR ---
DILAUDID GIVEN FOR 10/10 GENERALIZED PAIN. PT TOLERATED WELL.
[2018-11-08] VITALS: BP 97/51
[2018-11-08] MEDS: HYDROmorphone PFS 2 MG/ML SYR IVP PRN ×11 (01:14→22:30)
--- NOTE | 2018-11-08 01:14 | NUR ---
DILAUDID GIVEN FOR 10/10 GENERALIZED PAIN. PT TOLERATED WELL.
--- NOTE | 2018-11-08 03:18 | NUR ---
DILAUDID GIVEN FOR 10/10 GENERALIZED PAIN. PT TOLERATED WELL.
--- NOTE | 2018-11-08 05:15 | NUR ---
DILAUDID GIVEN FOR 10/10 GENERALIZED PAIN. PT TOLERATED WELL.
--- NOTE | 2018-11-08 07:31 | NUR ---
RECEIVED REPORT FROM NIGHT RN. PT RESTING IN BED. NO S/S OF ACUTE DISTRESS PT STATES PAIN. MUNIRA TO MEDICATE. RIGHT UPPER ARM PICC NOTED PATENT AND INTACT. PT REFUSED TO TURN AT THIS TIME TO OBSERVE WOUND DRESSING. CALL LIGHT WITHIN REACH. SAFETY MEASURES ENSURED. WILL CONTINUE TO MONITOR.
--- NOTE | 2018-11-08 07:31 | NUR ---
DILAUDID GIVEN FOR 10/10 GENERALIZED PAIN. PT TOLERATED WELL.
[2018-11-08 08:00] VITALS: BP 93/50
[2018-11-08 08:36] LABS: ANION GAP 11.9 (8-16); CARBON DIOXIDE 25.7 mmol/L (21-32); CREATININE 0.9 mg/dL (0.7-1.3); POTASSIUM 3.6 mmol/L (3.5-5.1)
[2018-11-08 08:49] LABS: MAGNESIUM 1.7 mg/dL (1.8-2.4); PHOSPHORUS 3.6 mg/dL (2.5-4.9)
[2018-11-08] MEDS: BLOOD GLUCOSE MONITORING 1 DEV DEV FS SCH ×2 (09:28→20:28)
--- NOTE | 2018-11-08 12:09 | NUR ---
PATIENT RESTING IN BED. NO S/S OF ACUTE DISTRESS. PT STATES PAIN IS MANAGEABLE. CALL LIGHT WITHIN REACH. SAFETY MEASURES ENSURED. WILL CONTINUE TO MONITOR.
[2018-11-08 16:00] VITALS: BP 119/52
[2018-11-08] MEDS: fentaNYL 0.05 MG/HR PATCH TD SCH (17:49)
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
[2018-11-08 20:00] VITALS: BP 115/65
[2018-11-08] MEDS: [UNRECOGNIZED DRUG - OTHER] IV SCH ×4 (20:13)
[2018-11-08] MEDS: DEXTROSE IV SCH ×4 (20:13)
[2018-11-08] MEDS: MULTIVITAMIN IV SCH ×4 (20:13)
[2018-11-08] MEDS: AMINO ACIDS IV SCH ×4 (20:13)
--- NOTE | 2018-11-08 21:09 | NUR ---
PT C/PO OF 10 PAIN MULTIPLE WOUNDS/ GONZALES. GIVEN DILAUDID ORDERED
[2018-11-09] MEDS: HYDROmorphone PFS 2 MG/ML SYR IVP PRN ×13 (00:54→23:05)
--- NOTE | 2018-11-09 00:54 | NUR ---
PT C/O OF 11/18 PAIN MULTIPLE WOUNDS/ GONZALES. GIVEN DILAUDID ORDERED
[2018-11-09] MEDS: ONDANSETRON 4 MG/2 ML VIAL IVP PRN (00:56)
--- NOTE | 2018-11-09 00:56 | NUR ---
PT VOMITED 1 X; ONDASETRON GIVEN PRN
--- NOTE | 2018-11-09 02:53 | NUR ---
PT C/O OF 11/18 MULTIPLE WOUNDS ADMINISTERED DILAUDID PRN.
[2018-11-09 04:00] VITALS: BP 95/49
--- NOTE | 2018-11-09 05:07 | NUR ---
PT C/O OF 11/18 MULTIPLE WOUNDS ADMINISTERED DILAUDID PRN.
--- NOTE | 2018-11-09 06:38 | NUR ---
PT SLEEPING AT THIS TIME, BUT EASILY AROUSABLE TO VERBAL AND TACTILE STIMULI. PT FOR DRESSING OF THE WOUND TODAY AT THE OR, WITH CONSENT SIGNED ATTACHED TO CHART.WILL ENDORSE TO NEXT SHIFT
--- NOTE | 2018-11-09 07:10 | NUR ---
RECEIVED PT FROM NIGHT NURSE. PT AAO X4. DENIES PAIN AT TIME OF ASSESSMENT. SKIN NON-INTACT. TPN INFUSING AT R UA IV PICC DOUBLE. RESPIRATIONS EVEN AND UNLABORED. VITAL SIGNS WITHIN NORMAL LIMITS. SAFETY MEASURES IN PLACE. CALL LIGHT WITHIN REACH. WILL CONTINUE TO MONITOR.
[2018-11-09 08:18] LABS: MAGNESIUM 1.9 mg/dL (1.8-2.4); PHOSPHORUS 3.9 mg/dL (2.5-4.9)
[2018-11-09] MEDS: DOCUSATE SODIUM 100 MG GELCAP PO SCH (09:00)
--- NOTE | 2018-11-09 09:00 | NUR ---
MEDICATIONS ADMINISTERED PER ORDER. PT TOLERATED WELL AND SHOWS NO SIGNS OF DISTRESS. SAFETY MEASURES IN PLACE. WILL CONTINUE TO MONITOR.
[2018-11-09 09:26] LABS: CARBON DIOXIDE 23.9 mmol/L (21-32); POTASSIUM 3.9 mmol/L (3.5-5.1)
[2018-11-09] MEDS: BLOOD GLUCOSE MONITORING 1 DEV DEV FS SCH ×2 (09:33→22:01)
--- NOTE | 2018-11-09 11:10 | NUR ---
ADMINISTERED PRN DILAUDID FOR PAIN. PT IN STABLE CONDITION. WILL CONTINUE TO MONITOR.
--- NOTE | 2018-11-09 14:04 | NUR ---
ADMINISTERED PRN DILAUDID POR PAIN. WILL REEVAULATE IN [address]AFETY MEASURES IN PLACE.
--- NOTE | 2018-11-09 15:09 | NUR ---
11/09/18 RD FOLLOW UP COMPLETED PLEASE REFER TO NUTRITION ASSESSMENT UNDER CARE ACTIVITY FOR ESTIMATED NUTRITIONAL NEEDS. 1.CONTINUE REGULAR DIET AND TPN D16.8 AA4.25 RUNNING AT 80 ML/HR WITH 20% IL (200 ML) TOLERATED -THIS PROVIDES 1863 KCAL AND 81 G PROTEIN. 2. CONTINUE RODRIGUEZ BID FOR WOUND HEALING SUPPORT 3. ENCOURAGE INCREASING PO INTAKE OF PROTEIN PORTIONS FIRST THEN CARBOHYDRATES AND LIQUIDS 4. RD TO FOLLOW-UP 2-3 DAYS, HIGH RISK ALEXEI JOHNSTON RD
--- NOTE | 2018-11-09 15:53 | NUR ---
OR NURSES ON FLOOR TO TAKE PT INTO OR FOR SCHEDULED DEBRIDEMENT. PT IN STABLE CONDITION.
[2018-11-09] MEDS ORDERED: fentaNYL 0.05 MG/ML VIAL ONE (15:59)
[2018-11-09] MEDS ORDERED: MIDAZOLAM 2 MG/2 ML VIAL ONE (15:59)
[2018-11-09 16:00] VITALS: BP 107/56
[2018-11-09] MEDS ORDERED: SEVOFLURANE 250 ML BTL INH ONE (16:01)
[2018-11-09] MEDS ORDERED: PROPOFOL 200 MG/20 ML VIAL IV ONE (16:01)
[2018-11-09] MEDS ORDERED: MEPERIDINE 25 MG/ML SYR IVP PRN (16:50)
[2018-11-09] MEDS ORDERED: diphenhydrAMINE 50 MG/ML VIAL IVP PRN (16:50)
[2018-11-09] MEDS ORDERED: ONDANSETRON 4 MG/2 ML VIAL IVP PRN (16:50)
[2018-11-09] MEDS: HYDROmorphone 1 MG/ML AMP IVP PRN ×4 (16:55→17:25)
[2018-11-09] MEDS ORDERED: HYDROmorphone PFS 2 MG/ML SYR ONE (16:58)
[2018-11-09] MEDS: MULTIVITAMIN IV SCH ×12 (17:09→20:55)
[2018-11-09] MEDS: [UNRECOGNIZED DRUG - OTHER] IV SCH ×12 (17:09→20:55)
[2018-11-09] MEDS: AMINO ACIDS IV SCH ×12 (17:09→20:55)
[2018-11-09] MEDS: LACTATED RINGERS 1,000 ML IV SCH ×2 (17:09→17:30)
[2018-11-09] MEDS: DEXTROSE IV SCH ×12 (17:09→20:55)
--- NOTE | 2018-11-09 18:55 | NUR ---
PRN DILAUDID GIVEN FOR PAIN. WILL CONTINUE TO MONITOR.
--- NOTE | 2018-11-09 19:10 | NUR ---
PT GIVEN TO NIGHT NURSE IN STABLE CONDITION FOR CONTINUITY OF CARE.
[2018-11-09 20:00] VITALS: BP 105/48
--- NOTE | 2018-11-09 20:00 | NUR ---
ASSUMED CARE. RECEIVED ALERT,ORIENTED. FBNJ=423.5 LV=760. COOLING MEASURES DONE. COMPLAINED OF NECK AND BACK PAIN. WILL MEDICATE.OTHER VS ARE WITHIN ACCEPTABLE LIMITS. MOTHER AT BEDSIDE. WILL CONTINUE TO MONITOR. NEEDS ATTENDED.
--- NOTE | 2018-11-09 20:55 | NUR ---
NEW BAG OF TPN STARTED AT A RATE OF 79.66/HR VIA RIGHT UPPER ARM DOUBLE LUMEN PICC LINE. ALSO MEDICATED WITH DILAUDID 2 MG IVP FOR PAIN.
[2018-11-09] MEDS: ACETAMINOPHEN 325 MG TAB PO PRN (21:08)
--- NOTE | 2018-11-09 21:08 | NUR ---
TYLENOL 650 MG PO GIVEN FOR LPIB=494.5. WILL RECHECK TEMPERATURE.
--- NOTE | 2018-11-09 22:01 | NUR ---
FINGERSTICK BLOOD SUGAR CHECK=81. NO INSULIN COVERAGE NEEDED.
--- NOTE | 2018-11-09 23:05 | NUR ---
GÉNESIS OLEARY ENDORSED PT TO MY CARE FOR LAUREENID ONLY FOR 2305. WITH CHARGE NURSE MARIEE'S AUTHORITATIVE DIRECTION Addendum: 11/09/18 at 2314 by Hermelinda Townsend RN 2304
--- NOTE | 2018-11-09 23:06 | NUR ---
PLS DELETE THE PAIN ASSESSMENT ON 2306. THE PAIN ASSESSMENT SHOULD BE AT 2305 AND NOT ON 2306
[2018-11-10] VITALS: BP 104/54
--- NOTE | 2018-11-10 | NUR ---
AWAKE, NOT IN ANY KIND OF DISTRESS. VERBALIZED NON-RELIEF OF PAIN. TEMPERATURE (99.2) AND HR (112) IMPROVED. SIDE RAILS UP, CALL LIGHT WITHIN REACH. KEPT WARM AND COMFORTABLE. NEEDS ATTENDED.
[2018-11-10] MEDS: HYDROmorphone PFS 2 MG/ML SYR IVP PRN ×11 (01:10→22:48)
--- NOTE | 2018-11-10 01:10 | NUR ---
COMPLAINED OF PAIN (8/10). ANOTHER DOSE OF DILAUDID 2 MG IVP GIVEN ORDERED.
--- NOTE | 2018-11-10 05:56 | NUR ---
DILAUDID 2 MG IVP GIVEN FOR PAIN (CG=600/56).
--- NOTE | 2018-11-10 07:29 | NUR ---
ENDORSED CARE TO TAYLOR ANTONIO
[2018-11-10 07:56] LABS: MAGNESIUM 1.9 mg/dL (1.8-2.4); PHOSPHORUS 4.3 mg/dL (2.5-4.9)
[2018-11-10 08:06] LABS: ALBUMIN 1.6 g/dL (3.4-5.0); ANION GAP 13.2 (8-16); CREATININE 0.9 mg/dL (0.7-1.3); POTASSIUM 4.2 mmol/L (3.5-5.1); TOTAL BILIRUBIN 0.2 mg/dL (0.0-1.0)
[2018-11-10 08:12] LABS: HEMATOCRIT 23.9 % (36-52); HEMOGLOBIN 7.7 g/dL (12.0-18.0); MEAN CORPUSCULAR HEMOGLOBIN 30 pg (27-31); MEAN CORPUSCULAR HGB CONC 32 g/dL (33-37); MEAN CORPUSCULAR VOLUME 91.9 fL (80-94); PLATELET COUNT (AUTO) 328 K/uL (140-450); RED CELL DISTRIBUTION WIDTH 16.2 % (11.6-13.7)
[2018-11-10 08:44] LABS: EOSINOPHILS % (MANUAL) 9 % (0-4); LYMPHOCYTES % (MANUAL) 24 % (20-46); MONOCYTES % (MANUAL) 10 % (5-12)
[2018-11-10] MEDS: DOCUSATE SODIUM 100 MG GELCAP PO SCH (09:00)
[2018-11-10] MEDS: BLOOD GLUCOSE MONITORING 1 DEV DEV FS SCH ×2 (10:00→20:49)
--- NOTE | 2018-11-10 11:30 | NUR ---
FAXED ALL THE INFO AND [place] [facility] [place] SPOKE WITH [facility] , AFTER THEY REVIEW WILL CALL REBECCA CM TO FOLLOW
--- NOTE | 2018-11-10 14:05 | NUR ---
[place] [facility] [place] WITH AMANDA STATED DENIES THE CASE BECAUSE NO NEED FOR THE HIGHER LEVEL FOR PAIN MANAGEMENT AND WOUND CARE.
[2018-11-10 15:51] VITALS: BP 103/55
--- NOTE | 2018-11-10 19:28 | NUR ---
REPORT RECEIVED FROM AM NURSE AT BEDSIDE. PT IN STABLE CONDITION. AAOX4. INTRODUCED SELF TO PT. BOARD UPDATED. NO COMPLAINTS OF PAIN. NO SOB. AFEBRILE. PT IS BEDBOUND. PT DOES NOT WANT TO BE MOVED TO TURNED. IV SITE R UA PICC DOUBLE LUMEN RUNNING TPN@79.66ML/HR PATENT AND INTACT. SKIN WARM, DRY, AND INTACT WITH MULTIPLE WOUNDS. SEE WOUND NOTES. BED LOCKED IN LOW POSITION. CALL CONN WITHIN REACH. SAFETY PRECAUTION IN PLACE. ALL NEEDS MET AT THIS TIME.
[2018-11-10] MEDS: [UNRECOGNIZED DRUG - OTHER] IV SCH ×4 (20:47)
[2018-11-10] MEDS: AMINO ACIDS IV SCH ×4 (20:47)
[2018-11-10] MEDS: DEXTROSE IV SCH ×4 (20:47)
[2018-11-10] MEDS: MULTIVITAMIN IV SCH ×4 (20:47)
--- NOTE | 2018-11-10 20:47 | NUR ---
TPN HUNG AND RUNNING. BS 77. NO INSULIN COVERAGE NEEDED. DILAUDID GIVEN FOR 10/10 GENERALIZED PAIN. PT TOLERATED WELL.
--- NOTE | 2018-11-10 22:00 | NUR ---
PT AWAKE AND ALERT WATCHING TV. NO S/S OF DISTRESS NOTED. WILL CONTINUE TO MONITOR.
--- NOTE | 2018-11-10 22:48 | NUR ---
DILAUDID GIVEN FOR 10/10 GENERALIZED PAIN. PT TOLERATED WELL.
[2018-11-11] VITALS: BP 103/54
[2018-11-11] MEDS: HYDROmorphone PFS 2 MG/ML SYR IVP PRN ×12 (00:48→23:18)
--- NOTE | 2018-11-11 00:48 | NUR ---
DILAUDID GIVEN FOR 10/10 GENERALIZED PAIN. PT TOLERATED WELL.
--- NOTE | 2018-11-11 02:44 | NUR ---
DILAUDID GIVEN FOR 10/10 GENERALIZED PAIN. PT TOLERATED WELL.
--- NOTE | 2018-11-11 04:43 | NUR ---
DILAUDID GIVEN FOR 10/10 GENERALIZED PAIN. PT TOLERATED WELL.
--- NOTE | 2018-11-11 06:43 | NUR ---
DILAUDID GIVEN FOR 11/18 GENERALIZED PAIN. PT TOLERATED WELL. Addendum: 11/11/18 at 0649 by Migue Newsome RN PT IN STABLE CONDITION. WILL ENDORSE PAIN REASSESSMENT TO AM NURSE.
--- NOTE | 2018-11-11 07:40 | NUR ---
CHECKED PT. AWAKE, ALERT. NO COMPLAINTS OF PAIN. NO SOB. PT DOES NOT WANT TO BE MOVED OR TO BE TURNED. IV SITE R UA PICC DOUBLE LUMEN RUNNING TPN@79.66ML/HR PATENT AND INTACT. SKIN WARM, DRY, WITH MULTIPLE WOUND. BED LOCKED IN LOW POSITION. CALL CONN WITHIN REACH. SAFETY PRECAUTION IN PLACE. WILL CONTINUE TO MONITOR.
[2018-11-11 08:00] VITALS: BP 98/62
--- NOTE | 2018-11-11 09:00 | NUR ---
Received report from nurse Kathryn. Pt resting in bed, respirations even & nonlabored. Right upper arm PICC 2-lumen intact & asymptomatic with ongoing TPN @ 79.668ml/hr. Dilaudid IVP administered. Pt states he is "doing ok." Call light within reach.
[2018-11-11] MEDS: BLOOD GLUCOSE MONITORING 1 DEV DEV FS SCH ×2 (09:01→21:27)
[2018-11-11] MEDS ORDERED: INSULIN LISPRO SLIDING SCALE 100 UNITS/ML VIAL SUBQ PRN (09:30)
--- NOTE | 2018-11-11 13:00 | NUR ---
Informed pt that PICC dressing is due for change. Pt refused & states he doesn't need it right now. Educated pt on facility protocol for central line dressing change d/t risk of infection. Pt verbalized understanding & states he wants second shift supervisor to do dressing change. ROSEMARIE PICC dressing still clean, dry, & intact at this time. Will endorse to pm shift. Addendum: 11/11/18 at 1311 by Karlie Carbajal RN Addendum: Pt also refused dressing assessment. Pt states "they're ok right now." Educated on benefits of routine dressing change & infection control. Pt verbalized understanding but cont to refuse. Also refused assistance with repositioning & using pillows for pressure relief. Pt states "I'll do it myself." Pt observed able to use BUE to pull self left/right. ROSEMARIE PICC intact with ongoing TPN. Call light within reach. Will cont to monitor.
[2018-11-11 16:00] VITALS: BP 97/55
--- NOTE | 2018-11-11 16:56 | NUR ---
Colostomy bag intact with min soft brown stool. Pt resting in bed, no signs of distress. ROSEMARIE PICC intact & asymptomatic with ongoing TPN. Call light within reach.
--- NOTE | 2018-11-11 17:49 | NUR ---
Duragesic patch in place & intact to left arm. Next due for new patch @ 2100 today. Pt states to remove old patch when new one is available.
--- NOTE | 2018-11-11 19:10 | NUR ---
Report given to pm nurse Sneha. Pt resting in bed, no signs of distress, mother at bedside.
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
--- NOTE | 2018-11-11 19:40 | NUR ---
RECEIVED BEDSIDE REPORT FROM BOBBI CAPPS. PT IS AAOX4 ON ROOM AIR RESPIRATIONS ARE EQUAL AND UNLABORED. MOTHER IS AT BEDSIDE. HAS ROSEMARIE PICC LINE INFUSING TPN PER ORDERS. PT WITH MX WOUNDS ON SHAMEKA LEGS DRESSING IS C/D/I. ORDER FOR DRESSING CHANGE WITH DR CAICEDO TOMORROW PT AWARE. TO BE NPO AFTER MIDNIGHT. SAFETY MEASURES ARE IN PLACE. CALL LIGHT IS WITHIN REACH. WILL ROUND FREQUENTLY.
[2018-11-11] MEDS: fentaNYL 0.05 MG/HR PATCH TD SCH (21:20)
[2018-11-11] MEDS: MULTIVITAMIN IV SCH ×4 (21:22)
[2018-11-11] MEDS: [UNRECOGNIZED DRUG - OTHER] IV SCH ×4 (21:22)
[2018-11-11] MEDS: AMINO ACIDS IV SCH ×4 (21:22)
[2018-11-11] MEDS: DEXTROSE IV SCH ×4 (21:22)
--- NOTE | 2018-11-11 21:22 | NUR ---
LUIS MEDICATIONS GIVEN. REMOVED FENTANYL PATCH ON LEFT ARM AND CLEAN SITE AND APPLIED NEW PATCH. BLOOD SUGAR IS 81. ADMINISTERED DILAUDID FOR PAIN 09/18. CALL LIGHT IS WITHIN REACH. WILL CONTINUE TO MONITOR.
--- NOTE | 2018-11-11 22:13 | NUR ---
PAGED DR CAICEDO REGARDING AM ORDER FOR PRBC 2UNIT PER DR CAICEDO MUST BE TRANSFUSED BEFORE PROCEDURE. WILL CALL LAB FOR STAT TYPE AND SCREEN.
--- NOTE | 2018-11-11 23:18 | NUR ---
ADMINISTERED DILAUDID FOR PAIN 09/18. CALL LIGHT IS WITHIN REACH. WILL CONTINUE TO MONITOR.
[2018-11-12] VITALS: BP 103/46
--- NOTE | 2018-11-12 01:07 | NUR ---
CHANGED PICC LINE DRESSING USED CLEAN TECHNIQUE TO REMOVE OLD DRESSING. USED STERILE TECHNIQUE TO CLEAN SITE, CLEANED PORTS, NEW DRESSING APPLIED DATE, TIMED AND INITIALED. PT TOLERATED WELL. CALL LIGHT IS WITHIN REACH. WILL CONTINUE TO MONITOR.
[2018-11-12] MEDS: HYDROmorphone PFS 2 MG/ML SYR IVP PRN ×11 (01:30→22:00)
--- NOTE | 2018-11-12 01:30 | NUR ---
ADMINISTERED DILAUDID FOR 10/10 GEN WEAKNESS. PT TOLERATED WELL. CALL LIGHT IS WITHIN REACH. WILL CONTINUE TO MONITOR.
--- NOTE | 2018-11-12 03:38 | NUR ---
ADMINISTERED DILAUDID FOR 10/10 GEN PAIN. ALL NEEDS MET AT THIS TIME. CALL LIGHT IS WITHIN REACH. WILL CONTINUE TO MONITOR.
--- NOTE | 2018-11-12 05:45 | NUR ---
ADMINISTERED DILAUDID FOR GEN PAIN 11/18. PT TOLERATED WELL. ALL NEEDS MET AT THIS TIME. CALL LIGHT IS WITHIN REACH
--- NOTE | 2018-11-12 06:00 | NUR ---
STARTED BLOOD TRANSFUSION. EDUCATED PATIENT ON S/S OF ADVERSE REACTION. PT VERBALIZED UNDERSTANDING. ALL SAFETY MEASURES ARE IN PLACE. CALL LIGHT IS WITHIN REACH. WILL CONTINUE TO MONITOR.
--- NOTE | 2018-11-12 06:15 | NUR ---
NO S/S OF ADVERSE REACTION VS REMAIN STABLE: 96/42 HR 110, 98.6, RR 17 SAT 99% RA DENIES PAIN. CALL LIGHT IS WITHIN REACH. WILL CONTINUE TO MONITOR.
--- NOTE | 2018-11-12 07:22 | NUR ---
GAVE BEDSIDE REPORT. PT ENDORSED IN STABLE CONDITION.
--- NOTE | 2018-11-12 07:23 | NUR ---
Received report from pm nurse Geeta. Pt resting in bed, awake, verbally responsive, no c/o discomfort, no signs of distress. ROSEMARIE PICC intact with ongoing blood transfusion @ 100ml/hr. Call light within reach.
[2018-11-12 07:30] VITALS: BP 93/55
--- NOTE | 2018-11-12 08:45 | NUR ---
Pt fingerstick blood glucose = 66. Pt aaox4, no c/o discomfort, no signs of distress, no tremors/diaphoresis noted. Cont blood tranfusion to ROSEMARIE PICC. TPN still on hold at this time. Will cont to monitor.
[2018-11-12] MEDS ORDERED: DEXTROSE 10% 1,000 ML IV SCH (09:05)
--- NOTE | 2018-11-12 09:30 | NUR ---
Blood transfusion completed. Vital signs stable. ROSEMARIE PICC line flushed with 10mlNS, resumed TPN @ 79.668ml/hr. Pt resting in bed, no signs of distress, no c/o discomfort. Call light within reach.
[2018-11-12] MEDS: BLOOD GLUCOSE MONITORING 1 DEV DEV FS SCH ×2 (09:58→21:12)
--- NOTE | 2018-11-12 11:40 | NUR ---
Current fingerstick glucose = 88. TPN held in anticipation of 2nd unit PRBC. ROSEMARIE PICC line 2-lumens flushed with NS, site intact, patent & asymptomatic, running NS @ 30ml via y-site tubing. Pt resting in bed, no c/o discomfort, no signs of distress. Pre-transfusion vitals: 98.3F, 103, 16, 90/54. Call light within reach.
--- NOTE | 2018-11-12 11:45 | NUR ---
Pt resting in bed, ROSEMARIE PICC with ongoing PRBC transfusion. Vital signs reassessment done @ 1420 with BP=80/42 HR=98. Pt asymptomatic, no signs of distress. Dr Adam notified on the phone, new orders received, noted & carried out. Addendum: 11/12/18 at 1510 by Karlie Carbajal RN Wrong time input; time of event is 1445. Pls omit above note.
--- NOTE | 2018-11-12 11:50 | NUR ---
INITIATED 2ND UNIT OF BLOOD. PT IS RESTING IN BED. WATCHING TV. NO SIGNS OF DISTRESS NOTED AT THIS TIME.
--- NOTE | 2018-11-12 14:40 | NUR ---
11/12/18 RD FOLLOW UP COMPLETED PLEASE REFER TO NUTRITION ASSESSMENT UNDER CARE ACTIVITY FOR ESTIMATED NUTRITIONAL NEEDS. 1. RECOMMEND INCREASING TPN INFUSION WHEN MEDICALLY APPROPRIATE TO MEET 75% OF ESTIMATED NEEDS 2. CONTINUE TO D12%, AA 4.25% AT 70ML/HR AND LIPIDS 20%(100 ML) TOLERATED -THIS WILL PROVIDE PATIENT WITH 1170 KCAL, 71 GM OF PROTEIN WHICH MEETS <75% OF ESTIMATED NEEDS 3. ENCOURAGE INCREASING PO INTAKE OF PROTEIN PORTIONS FIRST THEN CARBOHYDRATES AND LIQUIDS 4. CONTINUE REGULAR DIET TOLERATED WITH SUPPLEMENTS BROUGHT FROM HOME 5. RD WILL FOLLOW UP 2-3 DAYS, HIGH RISK ALEXEI JOHNSTON RD
--- NOTE | 2018-11-12 14:45 | NUR ---
Pt resting in bed, ROSEMARIE PICC with ongoing PRBC transfusion. Vital signs reassessment done @ 1420 with BP=80/42 HR=98. Pt asymptomatic, no signs of distress. Dr Adam notified on the phone, new orders received, noted & carried out.
[2018-11-12] MEDS ORDERED: ALBUMIN HUMAN 5 % 250 ML IV SCH (15:00)
[2018-11-12] MEDS: NACL 0.9% 1,000 ML IV SCH ×2 (15:01→18:51)
--- NOTE | 2018-11-12 15:15 | NUR ---
Pt resting in bed, RR = 12/min chandler-darden pattern. FLACC 0. Left forearm IV intact with ongoing morphine drip @ 5mg/hr. HR = 32/min via tele. Addendum: 11/12/18 at 1817 by Karlie Carbajal RN Charted on wrong pt. Pls omit above note.
--- NOTE | 2018-11-12 15:40 | NUR ---
Informed by [employer] that pt is asystolic on tele. Assessed pt in room, no spontaneous breathing noted, non-responsive to auditory/tactile stimuli, pupils non-reactive bilaterally. Dr. Haskins notified. Addendum: 11/12/18 at 1817 by Karlie Carbajal RN Charted on wrong pt. Pls omit above note.
[2018-11-12 16:00] VITALS: BP 90/49
--- NOTE | 2018-11-12 16:00 | NUR ---
Dr Haskins in room, pronounced time of @ 6248. Keely informed (case#[id number]); pt ineligible for organ donor. [place] sheriff's detective paged, awaiting call back. Danish Reid (son) notified on the phone of [place], verbalized understanding & states he will notify mortuary to contact [facility]. Addendum: 11/12/18 at 1818 by Karlie Carbajal RN Charted on wrong pt. Pls omit above note.
--- NOTE | 2018-11-12 16:15 | NUR ---
Received call from Danish (son) & gave verbal consent to release pt's remains to [employer] (contact officer: Joyce [phone]). Informed Danish that we are still waiting for clearance from storeroom keeper & we will be contacting mortuary once remains are cleared. Addendum: 11/12/18 at 1819 by Karlie Carbajal RN Charted on wrong pt. Pls omit above note.
--- NOTE | 2018-11-12 16:25 | NUR ---
PRBC infusion completed @ 1600. ROSEMARIE PICC line flushed with NS. Pt resting in bed, no signs of distress, no c/o discomfort. Albumin infusion initiated. Call light within reach.
--- NOTE | 2018-11-12 17:40 | NUR ---
Pt left unit via hospital bed for a surgical procedure. Has a right upper arm PICC with albumin infusing. Pt in stable condition.
[2018-11-12] MEDS ORDERED: fentaNYL 0.05 MG/ML VIAL ONE (17:45)
[2018-11-12] MEDS ORDERED: DESFLURANE 240 ML BTL INH ONE (17:48)
[2018-11-12] MEDS ORDERED: PROPOFOL 200 MG/20 ML VIAL IV ONE (17:48)
[2018-11-12] MEDS ORDERED: NEOMYCIN/POLYMYXIN/BACITRACIN OIN 15 GM TUBE TP ONE (18:21)
[2018-11-12] MEDS: HYDROmorphone 1 MG/ML AMP IVP PRN ×4 (18:45→19:15)
[2018-11-12] MEDS ORDERED: HYDROmorphone PFS 2 MG/ML SYR ONE (18:46)
--- NOTE | 2018-11-12 19:20 | NUR ---
Report given to pm nurse Geeta. Pt still at OR at this time.
--- NOTE | 2018-11-12 19:30 | NUR ---
RECEIVED REPORT FROM LEI RN. PT IS CURRENTLY OFF UNIT IN OR FOR DRESSING CHANGE WITH DR CAICEDO.
[2018-11-12 19:35] VITALS: BP 110/59
--- NOTE | 2018-11-12 19:35 | NUR ---
PATIENT BACK FROM ER. GOT DRESSING CHANGE DONE UNDER ANESTHESIA WITH DR CAICEDO WITH NON ADHERENT DRESSING. DRESSINGS ARE CLEAN WITH MINIMAL BLOOD. PATIENT IS CRYING IN PAIN. GOT DILAUDID 0.5MG IVP X4. WILL MEDICATE. VS:110/59 106 99%RA 16 98.2 CALL LIGHT IS WITHIN REACH. WILL CONTINUE TO MONITOR. Addendum: 11/12/18 at 2214 by Geeta Avila RN PATIENT CAME BACK FROM OR NOT ER.
--- NOTE | 2018-11-12 19:43 | NUR ---
ADMINISTERED DILAUDID 2MG IVP FOR 10/10 PAIN. PT TOLERATED WELL. VSS. PT IS AAOX4 ON ROOM AIR. RESPIRATIONS ARE EQUAL AND UNLABORED. PT WITH ROSEMARIE PICC LINE DOUBLE LUMEN. ALBUMIN INFUSING PER ORDERS. PT WITH COLOSTOMY BAG REFUSING ASSESSMENT AT THIS TIME D/T DISCOMFORT. PT ON CONTACT ISOLATION. HAS R BKA. AND MX WOUNDS. POC DISCUSSED WITH PT. CALL LIGHT IS WITHIN REACH. WILL CONTINUE TO MONITOR.
[2018-11-12] MEDS: DEXTROSE IV SCH ×8 (20:00→21:00)
[2018-11-12] MEDS: AMINO ACIDS IV SCH ×8 (20:00→21:00)
[2018-11-12] MEDS: [UNRECOGNIZED DRUG - OTHER] IV SCH ×4 (20:00)
[2018-11-12] MEDS: MULTIVITAMIN IV SCH ×8 (20:00→21:00)
[2018-11-12 20:05] LABS: BASOPHILS % (AUTO) 0.4 % (0.0-2.0); EOSINOPHILS # (AUTO) 0.2 K/uL (0-0.4); EOSINOPHILS % (AUTO) 1.4 % (0.0-4.0); HEMATOCRIT 33.8 % (36-52); HEMOGLOBIN 10.9 g/dL (12.0-18.0); LYMPHOCYTES # (AUTO) 1.5 K/uL (2.0-11.5); LYMPHOCYTES % (AUTO) 12.1 % (20.5-51.1); MEAN CORPUSCULAR HEMOGLOBIN 29 pg (27-31); MEAN CORPUSCULAR HGB CONC 32 g/dL (33-37); MEAN CORPUSCULAR VOLUME 90.1 fL (80-94); MONOCYTES # (AUTO) 1.6 K/uL (0.8-1.0); MONOCYTES % (AUTO) 12.9 % (1.7-9.3); NEUTROPHILS # (AUTO) 9.1 K/uL (1.8-7.7); NEUTROPHILS % (AUTO) 73.2 % (42.2-75.2); PLATELET COUNT (AUTO) 388 K/uL (140-450); RED BLOOD CELL COUNT(AUTO) 3.75 MIL/uL (4.20-6.10); RED CELL DISTRIBUTION WIDTH 16.1 % (11.6-13.7); WHITE BLOOD COUNT (AUTO) 12.4 K/uL (4.8-10.8)
[2018-11-12 20:16] LABS: ANION GAP 11.8 (8-16); CARBON DIOXIDE 25.4 mmol/L (21-32); POTASSIUM 4.2 mmol/L (3.5-5.1)
[2018-11-12 20:29] LABS: MAGNESIUM 1.7 mg/dL (1.8-2.4); PHOSPHORUS 5.6 mg/dL (2.5-4.9)
--- NOTE | 2018-11-12 20:59 | NUR ---
PAGED FOOD SAFETY MANAGER DOCTOR BOWEN FOR SEVERE PAIN. NEW ORDER DILAUDID 2MG IVP ONCE. MEDICATION GIVEN. TPN BAG NOW INFUSING PER ORDERS. BLOOD SUGAR 78 NO COVERAGE NEEDED. CALL LIGHT IS WITHIN REACH. WILL CONTINUE TO MONITOR.
[2018-11-12] MEDS: [UNRECOGNIZED DRUG - OTHER] IV SCH ×4 (21:00)
--- NOTE | 2018-11-12 21:45 | NUR ---
PAGED GROCERY CLERK MARKING MD WISEMAN PER DOCTOR MG LEVEL 1.7 IS OK NO NEW ORDERS.
--- NOTE | 2018-11-12 22:00 | NUR ---
DILAUDID IVP GIVEN FOR SEVERE 10/10 PAIN. CALL LIGHT IS WITHIN REACH. WILL CONTINUE TO MONITOR.
[2018-11-12 23:18] VITALS: BP 126/65
--- NOTE | 2018-11-12 23:20 | NUR ---
VITAL SIGNS ARE WITHIN NORMAL LIMITS. ALL NEEDS MET AT THIS TIME. CALL LIGHT IS WITHIN REACH. WILL CONTINUE TO MONITOR.
[2018-11-13] MEDS: HYDROmorphone PFS 2 MG/ML SYR IVP PRN ×12 (00:04→22:17)
--- NOTE | 2018-11-13 00:04 | NUR ---
ADMINISTERED DILAUDID IVP FOR GEN PAIN 11/18. ALL NEEDS MET AT THIS TIME. CALL LIGHT IS WITHIN REACH. WILL CONTINUE TO MONITOR.
--- NOTE | 2018-11-13 01:04 | NUR ---
PATIENT REFUSING WOUND ASSESSMENT D/T PAIN. CURRENTLY PAIN IS TOLERABLE BUT IS REFUSING ASSESSMENT SCARED PAIN WILL WORSEN WILL TRY AGAIN AT A LATER TIME. ALL SAFETY MEASURES ARE IN PLACE. WILL CONTINUE TO MONITOR.
--- NOTE | 2018-11-13 02:10 | NUR ---
ADMINISTERED DILAUDID IVP FOR GEN PAIN 11/18. ALL NEEDS MET AT THIS TIME. CALL LIGHT IS WITHIN REACH. WILL CONTINUE TO MONITOR.
--- NOTE | 2018-11-13 04:30 | NUR ---
PATIENT IS RESTING COMFORTABLY IN BED WATCHING TV. CALL LIGHT IS WITHIN REACH. WILL CONTINUE TO MONITOR.
--- NOTE | 2018-11-13 06:13 | NUR ---
ADMINISTERED DILAUDID IVP FOR GEN PAIN 11/18. ALL NEEDS MET AT THIS TIME. CALL LIGHT IS WITHIN REACH. WILL CONTINUE TO MONITOR.
--- NOTE | 2018-11-13 07:21 | NUR ---
GAVE BEDSIDE REPORT TO DAY SHIFT RN. PT ENDORSED IN STABLE CONDITION.
--- NOTE | 2018-11-13 07:22 | NUR ---
REPORT RECEIVED FROM BIBLIOGRAPHIC SERVICES SPECIALIST NURSE AT BEDSIDE FOR CONTINUITY OF CARE. PT AAOX4. NO S/S OF SOB OR DISTRESS ON ROOM AIR. IV SITE R UA DOUBLE LUMEN RUNNING TPN@ 79ML/HR, PATENT, INTACT, AND ASYMPTOMATIC. PT MEDICATED FOR PAIN AT 0613. PT AWARE OF NEXT SCHEDULED DOSE. PT IS BEDBOUND. SKIN WARM, DRY, AND NOT INTACT DUE TO MULTIPLE CHRONIC WOUNDS. PATIENT HAS COLOSTOMY AND USES URINAL. URINAL EMPTIED OF 475 ML OF CLEAR YELLOW URINE. BOARD UPDATED, PLAN OF CARE DISCUSSED WITH PT. PT VERBALIZED UNDERSTANDING. SAFETY AND ISOLATION PRECAUTIONS IN PLACE, BED IN LOW POSITION. CALL LIGHT WITHIN REACH. WILL CONTINUE TO MONITOR PATIENT.
[2018-11-13 08:00] VITALS: BP 103/56
--- NOTE | 2018-11-13 08:11 | NUR ---
ADMINISTERED DILAUDID IVP FOR GEN PAIN 11/18. ALL NEEDS MET AT THIS TIME. SAFETY AND ISOLATION PRECAUTIONS IN PLACE, CALL LIGHT IS WITHIN REACH. WILL CONTINUE TO MONITOR.
[2018-11-13] MEDS: BLOOD GLUCOSE MONITORING 1 DEV DEV FS SCH ×2 (10:05→20:35)
--- NOTE | 2018-11-13 10:11 | NUR ---
ADMINISTERED DILAUDID IVP FOR GEN PAIN 11/18. BLOOD SUGAR 96, NO COVERAGE NEEDED. ALL NEEDS MET AT THIS TIME. CALL LIGHT IS WITHIN REACH. WILL CONTINUE TO MONITOR.
--- NOTE | 2018-11-13 14:12 | NUR ---
ADMINISTERED DILAUDID IVP FOR GENERALIZED PAIN 10/19. INFORM PATIENT OF NEED FOR URINE SAMPLE. PATIENT VERBALIZED UNDERSTANDING AND WILL CALL RN WHEN HE VOIDS. FAMILY AT BEDSIDE. ALL NEEDS MET AT THIS TIME. SAFETY AND ISOLATION PRECAUTIONS IN PLACE, CALL LIGHT IS WITHIN REACH. WILL CONTINUE TO MONITOR.
[2018-11-13 16:00] VITALS: BP 97/53
--- NOTE | 2018-11-13 16:04 | NUR ---
CALLED RADIOLOGY TO COORDINATE CHEST XRAY. THEY STATED THEY WILL BE IN TO TAKE CHEST XRAY ONCE PATIENT HAS HAD HIS PRN PAIN MEDICATION. RN VERBALIZED UNDERSTANDING.
--- NOTE | 2018-11-13 16:18 | NUR ---
PATIENT MEDICATED FOR 9/10 GENERALIZED PAIN. RADIOLOGY HERE TO TAKE CHEST XRAY. WILL WAIT FOR RESULTS. PATIENT'S FAMILY AT BEDSIDE. WILL CONTINUE TO MONITOR PATIENT.
--- NOTE | 2018-11-13 16:55 | NUR ---
PAGED DR. GREEN ABOUT RENEWAL OF PATIENT'S PAIN MEDICATIONS. DR. GREEN CALLED BACK, NEW ORDERS IN.
--- NOTE | 2018-11-13 18:12 | NUR ---
PT MEDICATED FOR 10/10 GENERALIZED PAIN WITH PRN PAIN MEDICATIONS. FAMILY AT BEDSIDE. PATIENT TOLERATED IT. ALL NEEDS MET AT THIS TIME. WILL CONTINUE TO MONITOR PATIENT.
--- NOTE | 2018-11-13 18:35 | NUR ---
PATIENT VOIDED. URINE SAMPLE OBTAINED. URINE SAMPLE DROPPED OFF AT LAB. WILL WAIT FOR RESULTS. PATIENT'S MOTHER AT BEDSIDE. WILL CONTINUE TO MONITOR PATIENT.
[2018-11-13 19:04] LABS: APPEARANCE,URINE CLEAR (CLEAR); BILIRUBIN,URINE NEGATIVE (NEGATIVE); BLOOD, URINE NEGATIVE (NEGATIVE); COLOR,URINE YELLOW (YELLOW); LEUKOCYTE ESTERASE ,URINE NEGATIVE (NEGATIVE); NITRITE, URINE NEGATIVE (NEGATIVE); PH,URINE 5.5 (5.0-9.0); UGLUCOSE NEGATIVE (NEGATIVE)
--- NOTE | 2018-11-13 19:16 | NUR ---
REPORT GIVEN TO VICE CHAIR NURSE AT BEDSIDE FOR CONTINUITY OF CARE. PATIENT IN STABLE CONDITION.
--- NOTE | 2018-11-13 19:20 | NUR ---
RECEIVED FROM AM RN IN BED AWAKE AND ALERT. WATCHING SOMETHING FROM IPAD . MOTHER AT BEDSIDE. INTRODUCED MYSELF. CALL LIGHT WITH IN REACH AND CARE PLANS FOR THE NIGHT DISCUSSED WITH THEM. NO SOB. NO COMPLAINTS OF ANY PAIN AT THIS TIME. ENCOURAGED TO CALL FOR ANY HELP THEY MAY NEED OR IF IN PAIN.
[2018-11-13 20:13] VITALS: BP 107/57
--- NOTE | 2018-11-13 20:13 | NUR ---
DILAUDID 2 MG IVP ADMINISTERED FOR C/O BODY PAINS. MOTHER AT BEDSIDE. MEDICATED REQUESTED.
--- NOTE | 2018-11-13 20:37 | NUR ---
PT. MEDICATED WITH DILAUDID 2 MG IVP AND EFFECT WAS FAST. PT. AFTER 10 MINUTES ALREADY SMILING AND DISCUSSING THE TV PROGRAM HE IS WATCHING WITH MOM. PT. EATING AT THE SAME TIME REGULAR FOOD . PROVIDED WITH SMALL TOWELS, ICE CHIPS IN A PITCHER AND 3 CUPS EMPTY REQUESTED. ABLE TO USE CALL LIGHT WELL AND ABLE TO VERBALIZE NEEDS WELL. BLOOD SUGAR 70 MG/DL PER FINGERSTICK. NO INSULIN COVERAGE.
[2018-11-13] MEDS: [UNRECOGNIZED DRUG - OTHER] IV SCH ×4 (21:09)
[2018-11-13] MEDS: AMINO ACIDS IV SCH ×4 (21:09)
[2018-11-13] MEDS: MULTIVITAMIN IV SCH ×4 (21:09)
[2018-11-13] MEDS: DEXTROSE IV SCH ×4 (21:09)
--- NOTE | 2018-11-13 21:57 | NUR ---
PT. STILL AWAKE AT THIS TIME. MOTHER AT BEDSIDE. ENCOURAGED PT. TO TRY AND HELP CANNON CREWMEMBER TO TURN HIM. REFUSING TO LISTEN AT THIS TIME AND SAYS I AM IN PAIN IF TOUCHED" DILAUDID SIDE EFFECTS EXPLAINED TO HIM WITH MOTHER AT BEDSIDE LISTENING. PT. SHOUTS WITH PAIN IF TOUCHED. USES CALL LIGHT FOR HELP AND IF IN PAIN. ENCOURAGED TO REST AND GO TO SLEEP.
--- NOTE | 2018-11-13 22:17 | NUR ---
MEDICATED WITH DILAUDID 2 MG IVP REQUESTED BY PT. COMPLAINED OF GENERALIZED PAIN. STATED HE IS IN PAIN , TINGLING PAIN , THROBBING PAIN AND "FEELS LIKE MY NERVES ARE RAW AND IT HURTS". MOTHER STILL AT BEDSIDE. NO OTHER COMPLAINTS DONE . CALL LIGHT WITH IN REACH. ABLE TO USE IT WELL.
[2018-11-13 22:25] VITALS: BP 105/57
[2018-11-14] MEDS: HYDROmorphone PFS 2 MG/ML SYR IVP PRN ×12 (00:10→22:23)
--- NOTE | 2018-11-14 00:10 | NUR ---
PT. MEDICATED WITH DILAUDID 2 MG. IVP REQUESTED BY PT. PER PT. HE IS STARTING TO BE IN PAIN AGAIN. CRYING . ENCOURAGE TO AT LEAST SLEEP. PER PT. HE SLEEPS ONLY IN THE DAY TIME. CALL LIGHT WITH IN REACH.
[2018-11-14 00:18] VITALS: BP 103/55
--- NOTE | 2018-11-14 02:10 | NUR ---
MEDICATED WITH DILAUDID 2 MG IVP REQUESTED. PT. STATES HE IS IN PAIN AGAIN. REQUESTED SNACK/HAM SANDWICH WITH MAY[place]ISE ON IT. PROVIDED WITH ONE. CALL LIGHT WITH IN REACH.
[2018-11-14 02:21] VITALS: BP 104/55
[2018-11-14 04:41] VITALS: BP 116/55
--- NOTE | 2018-11-14 04:45 | NUR ---
MEDICATED WITH DILAUDID 2 MG IVP REQUESTED FOR CHRONIC PAIN. ABLE TO VERBALIZE NEEDS WELL. PT. WATCHING TV. CALL LIGHT WITH IN REACH.
--- NOTE | 2018-11-14 06:49 | NUR ---
PT. SLEEPING AT THIS TIME. ABLE TO VERBALIZE NEEDS WELL. CALL LIGHT WITH IN REACH. ISOLATION PRECAUTION. WILL ENDORSE TO AM RN FOR CONTINUITY OF CARE.
--- NOTE | 2018-11-14 07:15 | NUR ---
REPORT RECEIVED FROM SUPPLY CLERK NURSE AT BEDSIDE FOR CONTINUITY OF CARE. PT AAOX4. NO S/S OF SOB OR DISTRESS ON ROOM AIR. IV SITE R UA DOUBLE LUMEN RUNNING TPN@ 79ML/HR, PATENT, INTACT, AND ASYMPTOMATIC. PT MEDICATED FOR PAIN AT 0606. PT AWARE OF NEXT SCHEDULED DOSE. PT IS BEDBOUND. SKIN WARM, DRY, AND NOT INTACT DUE TO MULTIPLE CHRONIC WOUNDS. PATIENT HAS COLOSTOMY AND USES URINAL. BOARD UPDATED, PLAN OF CARE DISCUSSED WITH PT. PT VERBALIZED UNDERSTANDING. SAFETY AND ISOLATION PRECAUTIONS IN PLACE, BED IN LOW POSITION. CALL LIGHT WITHIN REACH. WILL CONTINUE TO MONITOR PATIENT.
[2018-11-14 07:37] LABS: MAGNESIUM 1.7 mg/dL (1.8-2.4); PHOSPHORUS 4.5 mg/dL (2.5-4.9)
[2018-11-14 07:38] LABS: ANION GAP 10.5 (8-16); CARBON DIOXIDE 26.4 mmol/L (21-32); POTASSIUM 3.9 mmol/L (3.5-5.1)
[2018-11-14 08:00] VITALS: BP 104/56
--- NOTE | 2018-11-14 08:06 | NUR ---
PATIENT MEDICATED WITH PRN DILAUDID 2 MG IVP REQUESTED FOR 11/18 CHRONIC PAIN. SAFETY AND ISOLATION PRECAUTIONS IN PLACE, CALL LIGHT WITHIN REACH, WILL CONTINUE TO MONITOR PATIENT.
[2018-11-14 08:08] LABS: CREATININE 0.9 mg/dL (0.7-1.3)
--- NOTE | 2018-11-14 10:07 | NUR ---
PATIENT MEDICATED WITH PRN DILAUDID 2 MG IVP REQUESTED FOR 10 CHRONIC PAIN. PATIENT DECLINED TO HAVE BLOOD SUGAR TAKEN AT MOMENT D/T PAIN IN HANDS. PATIENT AGREEABLE TO A LATER TIME. SAFETY AND ISOLATION PRECAUTIONS IN PLACE, CALL LIGHT WITHIN REACH, WILL CONTINUE TO MONITOR PATIENT.
[2018-11-14] MEDS: BLOOD GLUCOSE MONITORING 1 DEV DEV FS SCH ×2 (12:00→21:00)
--- NOTE | 2018-11-14 12:08 | NUR ---
PATIENT MEDICATED WITH PRN DILAUDID 2 MG IVP REQUESTED FOR 11/18 CHRONIC PAIN. BLOOD SUGAR 93. ALL NEEDS MET AT THIS TIME. SAFETY AND ISOLATION PRECAUTIONS IN PLACE, CALL LIGHT WITHIN REACH, WILL CONTINUE TO MONITOR PATIENT.
--- NOTE | 2018-11-14 14:08 | NUR ---
PATIENT MEDICATED WITH PRN DILAUDID 2 MG IVP REQUESTED FOR 11/18 CHRONIC PAIN. ALL NEEDS MET AT THIS TIME. SAFETY AND ISOLATION PRECAUTIONS IN PLACE, CALL LIGHT WITHIN REACH, WILL CONTINUE TO MONITOR PATIENT.
[2018-11-14 16:00] VITALS: BP 95/55
--- NOTE | 2018-11-14 18:09 | NUR ---
PATIENT MEDICATED WITH PRN DILAUDID 2 MG IVP REQUESTED FOR 9/10 GENERALIZED CHRONIC PAIN. ALL NEEDS MET AT THIS TIME. SAFETY AND ISOLATION PRECAUTIONS IN PLACE, CALL LIGHT WITHIN REACH, WILL CONTINUE TO MONITOR PATIENT.
--- NOTE | 2018-11-14 19:10 | NUR ---
REPORT GIVEN TO ATTENDING AMBULATORY CARE NURSE AT BEDSIDE FOR CONTINUITY OF CARE. PATIENT IN STABLE CONDITION, SITTING UP IN BED EATING DINNER. Addendum: 11/14/18 at 1911 by Rachid Whitfield RN WRONG PATIENT.
--- NOTE | 2018-11-14 19:10 | NUR ---
RECEIVED REPORT FORM [place] RN DAYSHIFT NURSE AT BEDSIDE FOR CONTINUITY OF CARE, PT IN STABLE CONDITION.
--- NOTE | 2018-11-14 19:10 | NUR ---
REPORT GIVEN TO ALL TERRAIN VEHICLE TECHNICIAN NURSE AT BEDSIDE FOR CONTINUITY OF CARE. PATIENT IN STABLE CONDITION, AND AWARE OF NEXT SCHEDULED PAIN MEDICATION.
[2018-11-14 20:00] VITALS: BP 102/55
[2018-11-14] MEDS: fentaNYL 0.05 MG/HR PATCH TD SCH (20:15)
--- NOTE | 2018-11-14 20:30 | NUR ---
PT ON WOUND BED PICC LINE INTACT AND RUNNING TPN AT 70MLS/HR. PT C/O 9/10 GENERALIZED PAIN. PT GIVEN IVP DILAUDID ORDERED. NEW TPN HUNG AT THIS TIME. PT GIVEN SCHEDULED MEDS OF NEW [place] PATCH PLACED ON RIGHT DELTOID. OLD PATCH ON LEFT DELTOID REMOVED INTACT AND DISPOSED IN THE SHARPS CONTAINER. V/S FOLLOWS T 98.2 P 121 R 20 B/P 102/55 02 98% ON ROOM AIR. ALL FALLS A, PRESSURE ULCER AND CONTACT PRECAUTIONS IN PLACE. ALL REQUESTED NEEDS ATTENDED AND CALL CONN IN REACH.
[2018-11-14] MEDS: MULTIVITAMIN IV SCH ×4 (21:36)
[2018-11-14] MEDS: AMINO ACIDS IV SCH ×4 (21:36)
[2018-11-14] MEDS: DEXTROSE IV SCH ×4 (21:36)
[2018-11-14] MEDS: [UNRECOGNIZED DRUG - OTHER] IV SCH ×4 (21:36)
--- NOTE | 2018-11-14 22:25 | NUR ---
PT C/O 09/18 GENERALIZED PAIN, PT GIVEN IVP DILAUDID ORDERED FOR SEVERE PAIN. ALL REQUESTED NEEDS ATTENDED AND CALL CONN IN REACH. PT DECLINES TO TURN. ALL FALLS AND CONTACT PRECAUTIONS IN PLACE.
[2018-11-15] VITALS: BP 102/55
[2018-11-15] MEDS: HYDROmorphone PFS 2 MG/ML SYR IVP PRN ×13 (00:26→22:50)
--- NOTE | 2018-11-15 00:30 | NUR ---
PT ON WOUND BED WITH C/O 9/10 GENERALIZED PAIN, GIVEN ORDERED IVP DILAUDID FOR SEVERE PAIN, ALL REQUESTED NEEDS ATTENDED. V/S FOLLOWS T 99.0 P 120 R 18 B/P 95/54 02 98% ON ROOM AIR. ALL CONTACT, PRESSURE AND FALLS PRECAUTIONS IN PLACE. CALL CONN IN REACH.
--- NOTE | 2018-11-15 01:15 | NUR ---
PT ON WOUND BED ALL FALLS AND CONTACT PRECAUTIONS IN PLACE, PT REFUSED TO TURN OR BE REPOSITIONED. PT ALSO DECLINED FOR STAFF TO CHECK OUT COLOSTOMY BAG. PT B/P IS 104/85 . PT C/O OF SEVERE PAIN AND WAS GIVEN IVP DILAUDID. TPN CONTINUES ORDERED. PICC LINE INTACT DRESSING DRY AND INTACT.
--- NOTE | 2018-11-15 07:06 | NUR ---
REPORT RECEIVED FROM SCRAPER TENDER NURSE AT BEDSIDE FOR CONTINUITY OF CARE. PT AAOX4. CURRENTLY RESTING WITH EYES CLOSED IN BED, NO S/S OF SOB OR DISTRESS ON ROOM AIR. IV SITE R UA DOUBLE LUMEN RUNNING TPN@ 79ML/HR, PATENT, INTACT, AND ASYMPTOMATIC. PT MEDICATED FOR PAIN AT 0646. PT IS BEDBOUND. SKIN WARM, DRY, AND NOT INTACT DUE TO MULTIPLE CHRONIC WOUNDS. PATIENT HAS COLOSTOMY AND USES URINAL. BOARD UPDATED, SAFETY AND ISOLATION PRECAUTIONS IN PLACE, BED IN LOW POSITION. CALL LIGHT WITHIN REACH. WILL CONTINUE TO MONITOR PATIENT.
[2018-11-15 08:00] VITALS: BP 96/49
--- NOTE | 2018-11-15 08:45 | NUR ---
PATIENT CRYING AND MOANING, "WHY ME", PATIENT MEDICATED WITH PRN DILAUDID 2 MG IVP REQUESTED FOR 11/18 GENERALIZED CHRONIC PAIN. ALL NEEDS MET AT THIS TIME. PATIENT AWARE OF NEXT SCHEDULED DOSE OF PAIN MEDICATION. SAFETY AND ISOLATION PRECAUTIONS IN PLACE, CALL LIGHT WITHIN REACH, WILL CONTINUE TO MONITOR PATIENT.
[2018-11-15] MEDS: BLOOD GLUCOSE MONITORING 1 DEV DEV FS SCH ×2 (09:00→21:00)
--- NOTE | 2018-11-15 10:42 | NUR ---
PATIENT MOANING AND SHAKING, PATIENT MEDICATED WITH PRN DILAUDID 2 MG IVP REQUESTED FOR 9/10 GENERALIZED CHRONIC PAIN. ALL NEEDS MET AT THIS TIME. PATIENT DECLINED BLOOD SUGAR CHECK, STATING "LATER, PLEASE". RN VERBALIZED UNDERSTANDING. SAFETY AND ISOLATION PRECAUTIONS IN PLACE, CALL LIGHT WITHIN REACH, WILL CONTINUE TO MONITOR PATIENT.
--- NOTE | 2018-11-15 12:37 | NUR ---
PATIENT MOANING AND SHIVERING. ASKED IF HE WAS COLD, HE STATED THAT "I'M OK", PATIENT MEDICATED WITH PRN PAIN MEDICATION FOR 9/10 PAIN REQUESTED. PATIENT AGAIN DECLINED TO HAVE BLOOD SUGAR TAKEN, STATING "I'M NOT READY". SAFETY AND ISOLATION PRECAUTIONS IN PLACE, CALL LIGHT WITHIN REACH, WILL CONTINUE TO MONITOR PATIENT.
--- NOTE | 2018-11-15 14:35 | NUR ---
PATIENT MOANING AND SHAKING, PATIENT MEDICATED WITH PRN DILAUDID 2 MG IVP REQUESTED FOR 9/10 GENERALIZED CHRONIC PAIN. ALL NEEDS MET AT THIS TIME. PATIENT DECLINED BLOOD SUGAR CHECK, D/T HIS HANDS BEING COLD, ASKED IF PATIENT WANTED TO WARM THEM UP, HE STATED "I'M DOING IT MYSELF, I'M SQUEEZING MY FISTS". MOTHER IN TO VISIT PATIENT. CONSENT FOR DRESSING CHANGES WITH DR. CAICEDO OBTAINED. SAFETY AND ISOLATION PRECAUTIONS IN PLACE, CALL LIGHT WITHIN REACH, WILL CONTINUE TO MONITOR PATIENT.
--- NOTE | 2018-11-15 15:36 | NUR ---
11/15/18 RD FOLLOW UP COMPLETED PLEASE REFER TO NUTRITION ASSESSMENT UNDER CARE ACTIVITY FOR ESTIMATED NUTRITIONAL NEEDS. 1. RECOMMEND INCREASING TPN INFUSION WHEN MEDICALLY APPROPRIATE TO MEET 75% OF ESTIMATED NEEDS 2. CONTINUE TPN D12%, AA 4.25% AT 70ML/HR AND LIPIDS 20%(100 ML) TOLERATED -THIS WILL PROVIDE PATIENT WITH 1170 KCAL, 71 GM OF PROTEIN WHICH MEETS <75% OF ESTIMATED NEEDS 3. ENCOURAGE INCREASING PO INTAKE OF PROTEIN PORTIONS FIRST THEN CARBOHYDRATES AND LIQUIDS 4. CONTINUE REGULAR DIET TOLERATED WITH SUPPLEMENTS BROUGHT FROM HOME 5. RD WILL FOLLOW UP 2-3 DAYS, HIGH RISK ALEXEI JOHNSTON RD
[2018-11-15 16:00] VITALS: BP 99/65
--- NOTE | 2018-11-15 16:05 | NUR ---
PATIENT ORAL TEMP 101.3. PRN TYLENOL OFFERED, PATIENT REFUSED AT THIS TIME D/T NAUSEA. OFFERED PRN ZOFRAN, PATIENT REFUSED. ICE PACKS GIVEN, TEMP OF ROOM DECREASED. WILL REASSESS PATIENT. PATIENT C/O 10/10 PAIN, MOANING, AND AGITATED, AWARE OF WHEN PAIN MEDICATION IS DUE. MOTHER AT BEDSIDE. WILL CONTINUE TO MONITOR PATIENT.
--- NOTE | 2018-11-15 16:24 | NUR ---
PT MEDICATED FOR 10/10 GENERALIZED CHRONIC PAIN WITH PRN DILAUDID. PATIENT TOLERATED IT. ORAL TEMP 99.3. MOTHER AT BEDSIDE. PATIENT AWARE OF NEXT SCHEDULED PAIN MEDICATION. SAFETY AND ISOLATION PRECAUTIONS WITHIN REACH, WILL CONTINUE TO MONITOR PATIENT.
--- NOTE | 2018-11-15 17:05 | NUR ---
ENDORSE PATIENT TO DAY SHIFT NURSE DERREK. RN AWARE OF NEXT SCHEDULED PAIN DOSE. PATIENT'S MOTHER AT BEDSIDE. PATIENT IN STABLE CONDITION.
--- NOTE | 2018-11-15 18:26 | NUR ---
RECEIVED PATIENT FROM DAY SHIFT [place]. ADMINISTERED PAIN MEDICATION FOR PAIN 11/18. MOTHER IS AT BEDSIDE, NO FURTHER COMPLAINTS AT THIS TIME.
--- NOTE | 2018-11-15 19:00 | NUR ---
RECEIVED REPORT FORM DAYSHIFT NURSE AT BEDSIDE FOR CONTINUITY OF CARE, PT IN STABLE CONDITION.
[2018-11-15 20:00] VITALS: BP 90/50
--- NOTE | 2018-11-15 20:40 | NUR ---
PT ON WOUND BED DECLINES TO BE TURNED OR CHANGED. TPN HUNG AND RUNNING AT 70MLS VIA PICC LINE . V/S FOLLOWS T 98.4 P 100 R 18 B/P 90/58 02 99% ON ROOM AIR. PT C/O SEVERE PAIN IN LEGS , BACK AND NECK GIVEN IVP DILAUDID. ALL FALLS CONTACT AND ASPIRATION PRECAUTIONS IN PLACE.
[2018-11-15] MEDS: MULTIVITAMIN IV SCH ×4 (21:43)
[2018-11-15] MEDS: [UNRECOGNIZED DRUG - OTHER] IV SCH ×4 (21:43)
[2018-11-15] MEDS: DEXTROSE IV SCH ×4 (21:43)
[2018-11-15] MEDS: AMINO ACIDS IV SCH ×4 (21:43)
--- NOTE | 2018-11-15 23:00 | NUR ---
PT IN BED ALL FALLS AND CONTACT PRECAUTIONS IN PLACE. PT REFUSED TO TURN AND CHANGE. PT ASKED ABOUT COLOSTOMY BAG TO WHICH HE ANSWERED, IT OK ONLY A LITTLE BIT THERE WHEN ASKED TO LOOK AT COLOSTOMY PT SAID NO. PT ALSO C/O OF SEVERE GENERALIZED PAIN, PT GIVEN IVP DILAUDID VIA PICC LINE ORDERED FOR SEVERE PAIN. V/S FOLLOWS T 98.3 P 108 R 18 B/P 90/50 02 96% ON ROOM AIR.
[2018-11-16] VITALS: BP 90/50
[2018-11-16] MEDS: HYDROmorphone PFS 2 MG/ML SYR IVP PRN ×12 (01:02→23:22)
--- NOTE | 2018-11-16 03:30 | NUR ---
PT GIVEN IVP DILAUDID ORDERED VIA PICC LINE FOR SEVERE PAIN.
--- NOTE | 2018-11-16 05:30 | NUR ---
PT C/O SEVERE GENERALIZED PAIN GIVEN IVP DILAUDID ORDERED VIA PICC LINE FOR SEVERE PAIN. ALL FALLS AND CONTACT PRECAUTIONS IN PLACE. PT REFUSED TO TURN AND REPOSITION DUE TO CHRONIC PAIN. PT VOIDED 100MLS OF NANY URINE. PT REMAINED NPO DURING SHIFT TPN RUNNING AT 70MLS/HR ORDERED.
--- NOTE | 2018-11-16 07:15 | NUR ---
Received report from hotel night auditor nurse Nafisa for continuity of care. Patient in stable condition. Respirations even and unlabored. IV access patent and intact. Safety measures in place. Bed in low position. Call light at bedside. Bed alarm on. Will continue to monitor.
[2018-11-16 08:00] VITALS: BP 96/57
[2018-11-16 08:17] LABS: BASOPHILS % (AUTO) 0.2 % (0.0-2.0); EOSINOPHILS # (AUTO) 0.2 K/uL (0-0.4); MEAN CORPUSCULAR VOLUME 90.8 fL (80-94)
[2018-11-16 08:29] LABS: CARBON DIOXIDE 24.9 mmol/L (21-32); CREATININE 0.8 mg/dL (0.7-1.3); POTASSIUM 3.9 mmol/L (3.5-5.1)
[2018-11-16 08:32] LABS: EOSINOPHILS % (AUTO) 1.2 % (0.0-4.0); HEMATOCRIT 27.3 % (36-52); HEMOGLOBIN 8.8 g/dL (12.0-18.0); LYMPHOCYTES # (AUTO) 1.9 K/uL (2.0-11.5); LYMPHOCYTES % (AUTO) 10.5 % (20.5-51.1); MEAN CORPUSCULAR HEMOGLOBIN 29 pg (27-31); MEAN CORPUSCULAR HGB CONC 32 g/dL (33-37); MONOCYTES # (AUTO) 1.2 K/uL (0.8-1.0); MONOCYTES % (AUTO) 6.7 % (1.7-9.3); NEUTROPHILS # (AUTO) 14.4 K/uL (1.8-7.7); NEUTROPHILS % (AUTO) 81.4 % (42.2-75.2); PLATELET COUNT (AUTO) 429 K/uL (140-450); RED BLOOD CELL COUNT(AUTO) 3.01 MIL/uL (4.20-6.10); RED CELL DISTRIBUTION WIDTH 15.3 % (11.6-13.7); WHITE BLOOD COUNT (AUTO) 17.7 K/uL (4.8-10.8)
[2018-11-16 08:47] LABS: MAGNESIUM 1.8 mg/dL (1.8-2.4); PHOSPHORUS 4.2 mg/dL (2.5-4.9)
[2018-11-16] MEDS: BLOOD GLUCOSE MONITORING 1 DEV DEV FS SCH ×2 (09:00→21:00)
--- NOTE | 2018-11-16 09:05 | NUR ---
Patient sleeping at this time. Bed in low position. Call light at bedside. Bed alarm on. Will continue to monitor.
--- NOTE | 2018-11-16 11:30 | NUR ---
PT OFF UNIT FOR WOUND CARE IN OR WITH DR. MARIFER REYES.
[2018-11-16] MEDS ORDERED: SEVOFLURANE 250 ML BTL INH ONE (11:35)
[2018-11-16] MEDS ORDERED: PROPOFOL 200 MG/20 ML VIAL IV ONE (11:35)
[2018-11-16] MEDS ORDERED: fentaNYL 0.05 MG/ML VIAL ONE (11:38)
[2018-11-16] MEDS ORDERED: ONDANSETRON 4 MG/2 ML VIAL IVP PRN (11:50)
[2018-11-16] MEDS: HYDROmorphone 1 MG/ML AMP IVP PRN ×3 (12:09→12:29)
[2018-11-16] MEDS ORDERED: HYDROmorphone PFS 2 MG/ML SYR ONE (12:09)
--- NOTE | 2018-11-16 12:36 | NUR ---
PT BACK ON UNIT FOR CONTINUITY OF CARE. PT IN STABLE CONDITION. C/O PAIN AT THIS TIME.
--- NOTE | 2018-11-16 13:30 | NUR ---
RENETTA ASIF DR.ID 2MG IVP ONCE NOW.
[2018-11-16] MEDS: HYDROmorphone 1 MG/ML AMP IVP SCH ×2 (14:15→15:22)
--- NOTE | 2018-11-16 15:21 | NUR ---
GAVE PAIN MEDICATION PER PT REQUEST. WILL CONTINUE TO MONITOR. CALL LIGHT AT BEDSIDE. BED IN LOW POSITION. BED ALARM ON.
[2018-11-16 16:00] VITALS: BP 101/52
--- NOTE | 2018-11-16 17:45 | NUR ---
PT TALKING TO FAMILY AT BEDSIDE. WILL CONTINUE TO MONITOR. CALL LIGHT AT BEDSIDE. BED IN LOW POSITION. BED ALARM ON.
--- NOTE | 2018-11-16 19:27 | NUR ---
GAVE REPORT TO DIE INSPECTOR NURSE FOR CONTINUITY OF CARE. PT IN STABLE CONDITION.
--- NOTE | 2018-11-16 19:28 | NUR ---
RECEIVED BEDSIDE REPORT FROM DAY SHIFT NURSE. PATIENT IS AWAKE, ALERT, AND COOPERATIVE. RESPIRATION EVEN UNLABORED ON ROOM AIR. NO DISTRESS NOTED. SKIN IS WARM AND DRY. RIGHT UPPER ARM PICC LINE NOTED. TPN IS RUNNING AT 70CC/HR. ALL SAFETY MEASURES IN PLACE. PLAN OF CARE WAS DISCUSSED. BED IS AT LOW POSITION. CALL LIGHT WITHIN REACH AND VERBALIZES ITS USE. WILL CONTINUE TO MONITOR.
--- NOTE | 2018-11-16 20:00 | NUR ---
INITIAL ASSESSMENT DONE. VITALS WERE TAKEN. PATIENT IN STABLE CONDITION. WILL CONTINUE TO MONITOR.
[2018-11-16] MEDS: DEXTROSE IV SCH ×4 (20:55)
[2018-11-16] MEDS: [UNRECOGNIZED DRUG - OTHER] IV SCH ×4 (20:55)
[2018-11-16] MEDS: AMINO ACIDS IV SCH ×4 (20:55)
[2018-11-16] MEDS: MULTIVITAMIN IV SCH ×4 (20:55)
--- NOTE | 2018-11-16 21:15 | NUR ---
PATIENT COMPLAINED OF PAIN 10/19. PRN PAIN ADMINISTERED PER ORDER. WILL CONTINUE TO MONITOR.
--- NOTE | 2018-11-16 23:20 | NUR ---
PATIENT COMPLAINED OF PAIN 10/19. PRN PAIN ADMINISTERED PER ORDER. WILL CONTINUE TO MONITOR.
[2018-11-17] VITALS: BP 104/62
--- NOTE | 2018-11-17 | NUR ---
VITALS WERE TAKEN. PATIENT IN STABLE CONDITION. WILL CONTINUE TO MONITOR.
--- NOTE | 2018-11-17 01:00 | NUR ---
PATIENT REFUSED TO BE TURN AND DRESSING CHANGED. EDUCATED ON THE BENEFITS OF IT X2 STILL REFUSED. WILL CONTINUE TO MONITOR.
[2018-11-17] MEDS: HYDROmorphone PFS 2 MG/ML SYR IVP PRN ×11 (01:28→22:33)
--- NOTE | 2018-11-17 01:28 | NUR ---
PATIENT COMPLAINED OF PAIN 10/19. PRN PAIN MED ADMINISTERED PER ORDER. WILL CONTINUE TO MONITOR
--- NOTE | 2018-11-17 03:30 | NUR ---
PATIENT COMPLAINED OF PAIN 9/10. PRN PAIN MEDS ADMINISTER WILL CONTINUE TO MONITOR.
--- NOTE | 2018-11-17 05:30 | NUR ---
PATIENT COMPLAINED OF PAIN 10/19. PRN PAIN MED ADMINISTERED PER ORDER. WILL CONTINUE TO MONITOR.
--- NOTE | 2018-11-17 07:22 | NUR ---
RECEIVED BEDSIDE REPORT FROM FLANGE MACHINE OPERATOR NURSE FOR CONTINUITY OF CARE. PATIENT IS AWAKE AND RESTING ON BED AT THIS TIME. RESPIRATION EVEN AND UNLABORED ON RA. DENIED PAIN, SOB AND DIZZINESS. NO SIGNS OF DISTRESS NOTED. RIGHT UPPER ARM PICC LINE NOTED, CLEAN AND INTACT INFUSING PER MD ORDER. DRESSING AROUND BODY, CLEAN AND DRY. OSTOMY BAG IN PLACE. PATIENT IS BEDREST. DISCUSSED PLAN OF CARE WITH PATIENT AND PATIENT VERBALIZED UNDERSTANDING. SAFETY MEASURES IN PLACE. BED IN LOW POSITION AND CALL LIGHT WITHIN REACH. INSTRUCTED PATIENT TO USE THE CALL LIGHT FOR ANY ASSISTANCE AND PATIENT WAS AWARE.
--- NOTE | 2018-11-17 07:24 | NUR ---
ENDORSED PATIENT TO DAY SHIFT NURSE. PATIENT IN STABLE CONDITION.
[2018-11-17 07:30] LABS: BASOPHILS % (AUTO) 0.2 % (0.0-2.0); EOSINOPHILS # (AUTO) 0.1 K/uL (0-0.4); EOSINOPHILS % (AUTO) 0.4 % (0.0-4.0); HEMATOCRIT 26.7 % (36-52); HEMOGLOBIN 8.6 g/dL (12.0-18.0); LYMPHOCYTES # (AUTO) 1.5 K/uL (2.0-11.5); LYMPHOCYTES % (AUTO) 12.4 % (20.5-51.1); MEAN CORPUSCULAR HEMOGLOBIN 29 pg (27-31); MEAN CORPUSCULAR HGB CONC 32 g/dL (33-37); MONOCYTES # (AUTO) 1.2 K/uL (0.8-1.0); NEUTROPHILS # (AUTO) 9.4 K/uL (1.8-7.7); PLATELET COUNT (AUTO) 436 K/uL (140-450); RED BLOOD CELL COUNT(AUTO) 2.93 MIL/uL (4.20-6.10); RED CELL DISTRIBUTION WIDTH 15.6 % (11.6-13.7); WHITE BLOOD COUNT (AUTO) 12.2 K/uL (4.8-10.8)
--- NOTE | 2018-11-17 07:47 | NUR ---
PATIENT COMPLAINED THAT HE HAS SEVERE PAIN 10/10 ON HIS UPPER BACK AND LOWER LEFT LEG, PATIENT IS CRYING, MOANING AND FACIAL GRIMACING. CHECKED VITAL SIGNS AND RECEIVED TEMP 106/58, PULSE 123, SPO2 100% ON RA, RR 20. ADMINISTERED PRN PAIN MED HYDROMORPHONE VIA IVP PER MD ORDER, PATIENT TOLERATED WELL. MED EDUCATION PROVIDED TO PATIENT AND PATIENT VERBALIZED OK. PATIENT IS AWAKE AND RESTING ON BED AT THIS TIME. SAFETY MEASURES IN PLACE. BED IN LOW POSITION AND CALL LIGHT WITHIN REACH. INSTRUCTED PATIENT TO USE THE CALL LIGHT FOR ANY ASSISTANCE AND PATIENT WAS AWARE.
[2018-11-17 07:59] LABS: ANION GAP 14.6 (8-16); CARBON DIOXIDE 23.7 mmol/L (21-32); CREATININE 0.8 mg/dL (0.7-1.3); POTASSIUM 4.3 mmol/L (3.5-5.1)
[2018-11-17 08:00] VITALS: BP 111/54
--- NOTE | 2018-11-17 09:26 | NUR ---
PATIENT REFUSED TO DO BLOOD GLUCOSE CHECK NOW AND SAID " NOT NOW. CHECK IT WHEN YOU GIVE ME THE NEXT DOSE OF PAIN MED." EXPLAINED THAT PAIN MED IS SCHEDULE FOR PRN Q2H AND IT'S NOT DUE AT THIS TIME. WILL BACK TO ADMINISTER PAIN MED AND CHECK BLOOD GLUCOSE. PATIENT AWAKE AND RESTING ON BED AT THIS TIME. SAFETY MEASURES IN PLACE. BED IN LOW POSITION AND CALL LIGHT WITHIN REACH. INSTRUCTED PATIENT TO USE THE CALL LIGHT FOR ANY ASSISTANCE AND PATIENT WAS AWARE.
--- NOTE | 2018-11-17 09:47 | NUR ---
PATIENT COMPLAINED THAT HE HAS SEVERE PAIN 10/10 ON HIS UPPER BACK AND LOWER LEFT LEG, PATIENT IS MOANING, IRRITABLE AND FACIAL GRIMACING. CHECKED VITAL SIGNS AND RECEIVED BP 107/57, PULSE 121 ,SPO2 100% ON RA, RR 18. ADMINISTERED PRN PAIN MED HYDROMORPHONE VIA IVP PER MD ORDER, PATIENT TOLERATED WELL. MED EDUCATION PROVIDED TO PATIENT AND PATIENT VERBALIZED OK. CHECKED BLOOD GLUCOSE AND RECEIVED 87. PATIENT IS AWAKE AND WATCHING TV ON BED AT THIS TIME. PATIENT REFUSED TO REPOSITION AND EDUCATION PROVIDED TO PATIENT ON SKIN BREAK DOWN AND PRESSURE ULCER, PATIENT SAID "NO, PLEASE DON'T MOVE ME. I FEEL HURT WHEN BEING MOVE." UNABLE TO REPOSITION PATIENT AT THIS TIME. SAFETY MEASURES IN PLACE. BED IN LOW POSITION AND CALL LIGHT WITHIN REACH. INSTRUCTED PATIENT TO USE THE CALL LIGHT FOR ANY ASSISTANCE AND PATIENT WAS AWARE.
[2018-11-17] MEDS: BLOOD GLUCOSE MONITORING 1 DEV DEV FS SCH ×2 (09:54→21:28)
[2018-11-17] MEDS ORDERED: POTASSIUM CHLORIDE 30 MEQ, LIDOCAINE 1% 25 MG in NACL 0.9% 250 ML IV PRN (10:00)
--- NOTE | 2018-11-17 11:48 | NUR ---
PATIENT AWAKE AND RESTING ON BED AT THIS TIME. STATED THAT HE HAS 5/10 PAIN AROUND HIS UPPER BACK AND L LEG AND IT'S TOLERABLE AT THIS TIME. WILL MEDICATED. NO SIGNS OF DISTRESS NOTED. SAFETY MEASURES IN PLACE. BED IN LOW POSITION AND CALL LIGHT WITHIN REACH. INSTRUCTED PATIENT TO USE THE CALL LIGHT FOR ANY ASSISTANCE AND PATIENT WAS AWARE.
--- NOTE | 2018-11-17 12:07 | NUR ---
PATIENT COMPLAINED THAT HE HAS SEVERE PAIN 9/10 ON HIS UPPER BACK AND LOWER LEFT LEG, PATIENT IS MOANING, IRRITABLE AND FACIAL GRIMACING. CHECKED VITAL SIGNS AND RECEIVED TEMP 97.7, BP 101/50, PULSE 127 ,SPO2 100% ON RA, RR 18. ADMINISTERED PRN PAIN MED HYDROMORPHONE VIA IVP PER MD ORDER, PATIENT TOLERATED WELL. MED EDUCATION PROVIDED TO PATIENT AND PATIENT VERBALIZED OK. PATIENT IS AWAKE AND WATCHING TV ON BED AT THIS TIME. PATIENT REFUSED TO REPOSITION AND EDUCATION PROVIDED TO PATIENT ON SKIN BREAK DOWN AND PRESSURE ULCER, PATIENT INSISTED NOT WANTING OT REPOSITION. UNABLE TO REPOSITION PATIENT AT THIS TIME. SAFETY MEASURES IN PLACE. BED IN LOW POSITION AND CALL LIGHT WITHIN REACH. INSTRUCTED PATIENT TO USE THE CALL LIGHT FOR ANY ASSISTANCE AND PATIENT WAS AWARE.
--- NOTE | 2018-11-17 13:09 | NUR ---
PT REFUSED TO BE TURN OR WOUND CARE. HE STATED THAT "I WANT DR CAICEDO TO DO IT UNDER ANESTHESIA. HE DID MY DRESSING CHANGE YESTERDAY." PROVIDED WOUND CARE EDUCATION AND EDUCATED PATIENT ON WOUND CARE AND REPOSITIONING CAN PREVENT SKIN BREAKDOWN. PATIENT VERBALIZED UNDERSTANDING, BUT INSISTED NOT WANT TO BE TURN OR DRESSING CHANGE. PATIENT AWAKE AND WATCHING TV ON BED AT THIS TIME. STATED THAT HE HAS SOME PAIN 4/10 BUT WITHIN HIS TOLERABLE LIMIT. NO SIGNS OF DISTRESS NOTED. SAFETY MEASURES IN PLACE. BED IN LOW POSITION AND CALL LIGHT WITHIN REACH. WOUND BED ACTIVATED. INSTRUCTED PATIENT TO USE THE CALL LIGHT FOR ANY ASSISTANCE AND PATIENT SAID OK.
--- NOTE | 2018-11-17 14:19 | NUR ---
PATIENT IS RESTING ON BED AT THIS TIME. AROUSABLE TO VOICE. RESPIRATION EVEN AND UNLABORED. NO SIGNS OF DISTRESS NOTED. SAFETY MEASURES IN PLACE. BED IN LOW POSITION AND CALL LIGHT WITHIN REACH. WOUND BED ACTIVATED.
--- NOTE | 2018-11-17 15:45 | NUR ---
PATIENT AWAKE AND WATCHING TV ON BED AT THIS TIME. STATED THAT HE HAS PAIN 5/10 AND IT'S TOLERABLE NOW. SAFETY MEASURES IN PLACE. BED IN LOW POSITION AND CALL LIGHT WITHIN REACH. INSTRUCTED PATIENT TO USE THE CALL LIGHT FOR ANY ASSISTANCE AND PATIENT WAS AWARE.
[2018-11-17 16:00] VITALS: BP 108/46
--- NOTE | 2018-11-17 16:22 | NUR ---
PATIENT COMPLAINED THAT HE HAS SEVERE PAIN 9/10 ON HIS UPPER BACK AND LOWER LEFT LEG, PATIENT IS MOANING, FACIAL GRIMACING AND FEELING RESTLESS. CHECKED VITAL SIGNS AND RECEIVED TEMP 98.1, BP 103/49, PULSE 118, SPO2 100% ON RA, RR 18. ADMINISTERED PRN PAIN MED HYDROMORPHONE VIA IVP PER MD ORDER, PATIENT TOLERATED WELL. MED EDUCATION PROVIDED TO PATIENT AND PATIENT VERBALIZED OK. PATIENT IS AWAKE AND RESTING ON BED AT THIS TIME. SAFETY MEASURES IN PLACE. BED IN LOW POSITION AND CALL LIGHT WITHIN REACH. INSTRUCTED PATIENT TO USE THE CALL LIGHT FOR ANY ASSISTANCE AND PATIENT WAS AWARE.
--- NOTE | 2018-11-17 17:37 | NUR ---
PATIENT AWAKE AND WATCHING TV ON BED AT THIS TIME. STATED THAT HE HAS 4/10 PAIN AROUND HIS UPPER BACK AND L LOWER LEG, EXPLAINED TO PATIENT THAT PRN PAIN MED IS Q2H, PATIENT VERBALIZED UNDERSTANDING AND STATED THAT THE PAIN IS TOLERABLE AT THIS TIME. NO SIGNS OF DISTRESS NOTED. SAFETY MEASURES IN PLACE. BED IN LOW POSITION AND CALL LIGHT WITHIN REACH. INSTRUCTED PATIENT TO USE THE CALL LIGHT FOR ANY ASSISTANCE AND PATIENT WAS AWARE.
--- NOTE | 2018-11-17 18:07 | NUR ---
PATIENT REFUSED TO EAT LUNCH AND DINNER AND STATED "I DON'T LIKE THE FOOD, BUT I AM KIND OF HUNGRY. I WILL EAT THE CHIPS." EXPLAINED TO PATIENT THAT HE NEEDS TO EAT TO GET THE NUTRIENTS THAT HIS BODY NEEDS AND PROMOTE HEELING. PAGED RD AND LEFT A MESSAGE TO ASSESS PATIENT'S FOOD PREFERENCE AND PATIENT SAID "OK, I WILL TALK TO THE DIETITIAN TOMORROW." PATIENT AWAKE AND RESTING ON BED AT THIS TIME. NO SIGNS OF DISTRESS NOTED. SAFETY MEASURES IN PLACE. BED IN LOW POSITION AND CALL LIGHT WITHIN REACH. INSTRUCTED PATIENT TO USE THE CALL LIGHT FOR ANY ASSISTANCE AND PATIENT WAS AWARE.
--- NOTE | 2018-11-17 18:28 | NUR ---
PATIENT COMPLAINED THAT HE HAS SEVERE PAIN 8/10 ON HIS UPPER BACK AND LOWER LEFT LEG, PATIENT IS MOANING, FACIAL GRIMACING AND IRRITABLE. CHECKED VITAL SIGNS AND RECEIVED TEMP 98.7, BP 110/56, PULSE 125, SPO2 97% ON RA, RR 18. ADMINISTERED PRN PAIN MED HYDROMORPHONE VIA IVP PER MD ORDER, PATIENT TOLERATED WELL. MED EDUCATION PROVIDED TO PATIENT AND PATIENT VERBALIZED OK. PATIENT IS AWAKE AND RESTING ON BED AT THIS TIME. SAFETY MEASURES IN PLACE. BED IN LOW POSITION AND CALL LIGHT WITHIN REACH. INSTRUCTED PATIENT TO USE THE CALL LIGHT FOR ANY ASSISTANCE AND PATIENT WAS AWARE.
--- NOTE | 2018-11-17 19:20 | NUR ---
ENDORSED PATIENT AT BEDSIDE TO FIELD MAP EDITOR NURSE FOR CONTINUITY OF CARE. PATIENT IS AWAKE AND WATCHING TV ON BED. EVEN AND UNLABORED CHEST RISES ON RA NOTED. NO SIGNS OF DISTRESS NOTED. PATIENT IS IN STABLE CONDITION. SAFETY MEASURES IN PLACE.
--- NOTE | 2018-11-17 19:21 | NUR ---
PATIENT AWAKE AND RESTING ON BED AT THIS TIME. PT STATED THAT HE HAS 8/10 PAIN AROUND HIS UPPER BACK AND L LEG WILL MEDICATED PER FREQUENCY NO SIGNS OF DISTRESS NOTED. WITH R PICC LINE ON RIGHT UPPER LINE; WITH COLOSTOMY ON LEFT.PT REFUSES TO BE TURNED, AND WOUND DRESSING CHANGE SAFETY MEASURES IN PLACE. BED IN LOW POSITION AND CALL LIGHT WITHIN REACH. INSTRUCTED PATIENT TO USE THE CALL LIGHT FOR ANY ASSISTANCE AND PATIENT WAS AWARE.
[2018-11-17 20:00] VITALS: BP 99/58
[2018-11-17] MEDS: [UNRECOGNIZED DRUG - OTHER] IV SCH ×4 (20:20)
[2018-11-17] MEDS: DEXTROSE IV SCH ×4 (20:20)
[2018-11-17] MEDS: AMINO ACIDS IV SCH ×4 (20:20)
[2018-11-17] MEDS: MULTIVITAMIN IV SCH ×4 (20:20)
--- NOTE | 2018-11-17 20:26 | NUR ---
PT MOANING AND CRYING IN PAIN, 7/10 GENERALIZED PAIN, DILAUDID GIVEN
[2018-11-17] MEDS ORDERED: fentaNYL 0.05 MG/HR PATCH TD SCH (21:00)
--- NOTE | 2018-11-17 21:28 | NUR ---
PT BLOOD SUGAR 83; NO COVERAGE NEEDED
--- NOTE | 2018-11-17 22:33 | NUR ---
PT MOANING AND CRYING IN PAIN, 7/10 GENERALIZED PAIN, DILAUDID GIVEN
[2018-11-18] MEDS: HYDROmorphone PFS 2 MG/ML SYR IVP PRN ×12 (00:33→23:38)
--- NOTE | 2018-11-18 00:33 | NUR ---
PT MOANING AND CRYING IN PAIN, 7/10 GENERALIZED PAIN, DILAUDID GIVEN
[2018-11-18 04:00] VITALS: BP 98/50
--- NOTE | 2018-11-18 07:00 | NUR ---
AWAKE, ALERT ORIENTED X 4, BEDREST. PT REFUSING TURNING AND WOUND CARE. PT IN STABLE CONDITION AT THIS TIME.GIVEN THE PAIN MEDS EARLIER. WILL ENDORSE TO NEXT SHIFT
[2018-11-18 07:20] LABS: BASOPHILS % (AUTO) 0.3 % (0.0-2.0); EOSINOPHILS # (AUTO) 0.1 K/uL (0-0.4); EOSINOPHILS % (AUTO) 0.7 % (0.0-4.0); HEMATOCRIT 26.8 % (36-52); HEMOGLOBIN 8.6 g/dL (12.0-18.0); LYMPHOCYTES # (AUTO) 1.8 K/uL (2.0-11.5); LYMPHOCYTES % (AUTO) 15.6 % (20.5-51.1); MEAN CORPUSCULAR HEMOGLOBIN 29 pg (27-31); MEAN CORPUSCULAR HGB CONC 32 g/dL (33-37); MONOCYTES # (AUTO) 1.2 K/uL (0.8-1.0); MONOCYTES % (AUTO) 10.5 % (1.7-9.3); NEUTROPHILS # (AUTO) 8.6 K/uL (1.8-7.7); NEUTROPHILS % (AUTO) 72.9 % (42.2-75.2); PLATELET COUNT (AUTO) 454 K/uL (140-450); RED BLOOD CELL COUNT(AUTO) 2.98 MIL/uL (4.20-6.10); RED CELL DISTRIBUTION WIDTH 15.4 % (11.6-13.7); WHITE BLOOD COUNT (AUTO) 11.8 K/uL (4.8-10.8)
--- NOTE | 2018-11-18 07:36 | NUR ---
RECEIVED BEDSIDE REPORT FROM PM RN PT APPEARS STABLE AND IN NO APPARENT DISTRESS. ALL SAFETY MEASURES ARE IN PLACE WILL CONTINUE TO MONITOR,
[2018-11-18 07:55] LABS: ANION GAP 14.7 (8-16); CARBON DIOXIDE 22.4 mmol/L (21-32); CREATININE 0.9 mg/dL (0.7-1.3); POTASSIUM 4.1 mmol/L (3.5-5.1)
[2018-11-18 08:02] LABS: MAGNESIUM 1.7 mg/dL (1.8-2.4); PHOSPHORUS 4.3 mg/dL (2.5-4.9)
[2018-11-18 08:05] LABS: TOTAL BILIRUBIN 0.5 mg/dL (0.0-1.0)
--- NOTE | 2018-11-18 09:15 | NUR ---
FREQUENT ROUNDING ON PT PT APPEARS STABLE AND IN NO APPARENT DISTRESS. ALL SAFETY MEASURES ARE IN PLACE PT HAS RIGHT UPPER ARM PICC INFUSING TPN FLUSHED AND PATENT NO SIGNS OF INFLAMMATION OR INFILTRATION, PT ON ROOM AIR. OFFERED PT TO HELP REPOSITION. PT REFUSED. INFORMED PT OF THE RISKS OF REFUSING REPOSITIONING PT STATED HE IS AWARE. WILL CONTINUE TO MONITOR PT
[2018-11-18] MEDS: BLOOD GLUCOSE MONITORING 1 DEV DEV FS SCH ×2 (09:25→21:46)
--- NOTE | 2018-11-18 10:24 | NUR ---
RECEIVED A CALL FROM [facility] SPOKE WITH CJ ,STATED THE TEAM (WOUND DR AND STEREOPTICIAN ) DISCUSSED WITH THE CASE AND DECIDE THIS CASE IS NOT FOR HIGHER LEVEL, IF THERE IS ANY ARGUMENT CAN CALL THE STEREOPTICIAN ALFRED. I CALLED STEREOPTICIAN ALFRED [phone] DISCUSSED THE PATIENT CONDITION AND SITUATION ,UNCONTROLLED PAIN , AND UNHEALED WOUND. PER ALFRED THERE IS NOTING THEY CAN DO AT [facility] THAN [place]. I ASKED ABOUT TO INSERT THE PAIN PUMP BECAUSE WE ARE NOT EQUIPPED TO INSERT THE PAIN PUMP . PER ALFRED SHE WILL DISCUSSED WITH THE TEAM AND MIGHT ASK LETTER OF AGREEMENT AND CALL BACK.
--- NOTE | 2018-11-18 10:40 | NUR ---
DISCUSSED WITH DR GREEN FOR FOLLOW UP WITH DR VIDES RECOMMENDATION ,HE INCREASE THE FENTANYL PATCH TO 75MCG AND ADDED NEURONTIN AND WILL CHECK IT TOMORROW AND INCREASE THE DILAUDID TO BE GIVEN Q 3 HRS. AND WILL DISCUSS WITH DR CAICEDO FOR WOUND DRESSING CHANGE. I WAS ASKED HIM REGARDING THE TRANSFER TO [facility] FOR PAIN PUMP DR GREEN DOESN'T AGREE WITH INSERTION OF PAIN PUMP, FIRST THE PLAN HAS TO BE GET HIM OFF THE IV PAIN MEDS.
--- NOTE | 2018-11-18 11:13 | NUR ---
FREQUENT ROUNDING ON PT PT APPEARS STABLE AND IN NO APPARENT DISTRESS. ALL SAFETY MEASURES ARE IN PLACE. OFFERED REPOSITIONING. PT REFUSED, INFORMED PT OF THE RISKS OF REFUSING REPOSITIONING. PT STATED HE IS AWARE.
--- NOTE | 2018-11-18 11:20 | NUR ---
offered pt his scheduled 1200 gabapentin pt stated he does not feel well enough right now to take the po medication will offer it to him again in about one hour. see how he is feeling then
--- NOTE | 2018-11-18 13:12 | NUR ---
OFFERED PT 1200 SCHEDULED GABAPENTIN PT REFUSED.
[2018-11-18] MEDS: GABAPENTIN 100 MG CAP PO SCH ×3 (13:15→23:37)
--- NOTE | 2018-11-18 15:15 | NUR ---
11/18/18 RD FOLLOW UP COMPLETED PLEASE REFER TO NUTRITION ASSESSMENT UNDER CARE ACTIVITY FOR ESTIMATED NUTRITIONAL NEEDS. 1. RECOMMEND PROBIOTIC ONCE DAILY 2. RECOMMEND INCREASING TPN INFUSION WHEN MEDICALLY APPROPRIATE TO MEET 75% OF ESTIMATED NEEDS 3. ENCOURAGE CONSUMING 40 GM OF PROTEIN FROM DIET 4. CONTINUE REGULAR DIET TOLERATED WITH SUPPLEMENTS BROUGHT FROM HOME 5. RD WILL FOLLOW UP 2-3 DAYS, HIGH RISK ALEXEI JOHNSTON RD
[2018-11-18 16:46] VITALS: BP 98/62
--- NOTE | 2018-11-18 19:26 | NUR ---
ENDORSED PT TO PM RN PT APPEARS STABLE AND IN NO APPARENT DISTRESS. ALL SAFETY MEASURES ARE IN PLACE RIGHT UPPER ARM PICC LINE INFUSING TPN
--- NOTE | 2018-11-18 19:27 | NUR ---
Received endorsement from AM shift RN; patient A/Ox4, able to make needs known, Belarusian speaking, bedbound. Patient is talking with mother Saray; introduced self, updated board. No SOB or distress noted, on room air. On contact precautions for MDRO wounds; observed and maintained. IV site on right upper arm PICC line, double lumen, running TPN at 70mL/hr. 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 Bed in the lowest position, call light within reach. Initial assessment done. Will continue to monitor.
[2018-11-18] MEDS: MULTIVITAMIN IV SCH ×4 (19:31)
[2018-11-18] MEDS: DEXTROSE IV SCH ×4 (19:31)
[2018-11-18] MEDS: AMINO ACIDS IV SCH ×4 (19:31)
[2018-11-18] MEDS: [UNRECOGNIZED DRUG - OTHER] IV SCH ×4 (19:31)
--- NOTE | 2018-11-18 21:40 | NUR ---
Due meds given, tolerated well.
[2018-11-18] MEDS: fentaNYL 0.075 MG/HR PATCH TD SCH (21:45)
[2018-11-19] VITALS: BP 104/54
--- NOTE | 2018-11-19 00:05 | NUR ---
Vitals taken, no distress noted.
--- NOTE | 2018-11-19 01:09 | NUR ---
Patient refuses wound care and repositioning.
[2018-11-19] MEDS: HYDROmorphone PFS 2 MG/ML SYR IVP PRN ×10 (01:35→22:18)
--- NOTE | 2018-11-19 03:02 | NUR ---
Rounds done; no SOB or distress noted.
--- NOTE | 2018-11-19 05:00 | NUR ---
Checks made; no SOB or distress noted.
[2018-11-19] MEDS: GABAPENTIN 100 MG CAP PO SCH ×3 (06:03→17:42)
--- NOTE | 2018-11-19 06:10 | NUR ---
Vitals stable, due meds given. Will endorse to AM shift RN for continuity of care.
--- NOTE | 2018-11-19 07:09 | NUR ---
RECEIVED ENDORSEMENT FROM STATISTICAL CLERK NURSE. PATIENT IS AAOX4, NICARAGUAN SPEAKING. RESPIRATIONS ARE EVEN AND UNLABORED ON ROOM AIR. PAIN IS TOLERABLE AT THIS TIME. RIGHT ARM DOUBLE LUMEN PICC INTACT, PATENT, AND INFUSING TPN. PLAN OF CARE WAS REVIEWED WITH PATIENT,PATIENT VERBALIZED UNDERSTANDING. SAFETY MEASURES IN PLACE,CALL LIGHT WITHIN REACH.
[2018-11-19 08:00] VITALS: BP 105/60
[2018-11-19] MEDS: BLOOD GLUCOSE MONITORING 1 DEV DEV FS SCH ×2 (09:04→21:00)
--- NOTE | 2018-11-19 09:16 | NUR ---
PATIENT RESTING IN BED. NO OTHER NEEDS AT THIS TIME.
--- NOTE | 2018-11-19 11:46 | NUR ---
PATIENT RESTING IN BED WATCHING TV. NO OTHER NEEDS AT THIS TIME.
--- NOTE | 2018-11-19 12:48 | NUR ---
ADMINISTERED SCHEDULED MEDICATION. PATIENT TOLERATED WELL. NO OTHER NEEDS AT THIS TIME.
--- NOTE | 2018-11-19 13:56 | NUR ---
PATIENT RESTING IN BED. NO OTHER NEEDS AT THIS TIME.
--- NOTE | 2018-11-19 15:58 | NUR ---
PATIENT RESTING IN BED. NO OTHER NEEDS AT THIS TIME.
[2018-11-19 16:00] VITALS: BP 99/51
--- NOTE | 2018-11-19 17:00 | NUR ---
PATIENT RESTING IN BED, WATCHING TV. MOM IS PRESENT AT BEDSIDE. NO OTHER NEEDS AT THIS TIME.
--- NOTE | 2018-11-19 19:24 | NUR ---
ENDORSED TO COST RECOVERY TECHNICIAN NURSE FOR CONTINUITY OF CARE. PATIENT IS STABLE AT THIS TIME.
--- NOTE | 2018-11-19 19:24 | NUR ---
RECIEVED PT AAOX4 , NID , ON TPN VIA PICC LINE , WITH COLOSTOMY ATTACHED TO BAG - PATENT ANG INTACT - SOFT ABD. WITH CHRONIC MULTIPLE WOUND - ON CONTACT PRECAUTION , WITH PRESSURE ULCER ON BUTT BUT PT REFUSED TO OFF LOAD THE AREAS BEDBOUND , RELATIVE ON BEDSIDE - PLAN OF CARE DISCUSS AND VERBALIZE UNDERSTANDING - CALL LIGHT WITHIN REACH , ON SAFETY /FALL PRECAUTION PROTOCOL . C/O PAIN -WILL MEDICATE OREDERED - WILL CONT. TO MONITOR.
[2018-11-19] MEDS: AMINO ACIDS IV SCH ×4 (20:38)
[2018-11-19] MEDS: DEXTROSE IV SCH ×4 (20:38)
[2018-11-19] MEDS: MULTIVITAMIN IV SCH ×4 (20:38)
[2018-11-19] MEDS: [UNRECOGNIZED DRUG - OTHER] IV SCH ×4 (20:38)
--- NOTE | 2018-11-19 22:00 | NUR ---
MADE ROUNDS - NO DISTRESS NOTED AT THIS TIME - WILL CONT. TO MONITOR - CALL LIGHT WITHIN REACH.
[2018-11-20] VITALS: BP 105/60
--- NOTE | 2018-11-20 | NUR ---
MADE ROUNDS , NO DISTRESS NOTED AT THIS TIME , WILL CONT. TO MONITOR , CALL LIGHT WITHIN REACH . EATING MIDNIGHT SNACK .
[2018-11-20] MEDS: HYDROmorphone PFS 2 MG/ML SYR IVP PRN ×9 (00:13→22:11)
[2018-11-20] MEDS: GABAPENTIN 100 MG CAP PO SCH ×4 (00:20→18:51)
--- NOTE | 2018-11-20 02:00 | NUR ---
MADE ROUNDS , NO DISTRESS NOTED AT THIS TIME , CALL LIGHT WITHIN REACH
--- NOTE | 2018-11-20 04:00 | NUR ---
MADE ROUNDS , NO DISTRESS NOTED AT THIS TIME , CALL LIGHT WITHIN REACH
--- NOTE | 2018-11-20 07:25 | NUR ---
RECEIVED REPORT FROM LAW ENFORCEMENT DIRECTOR NURSE PATIENT IS AWAKE, ALERT, RESTING IN BED. RESPIRATION EVEN AND UNLABORED. CALL LIGHT WITHIN REACH.
--- NOTE | 2018-11-20 07:25 | NUR ---
ENDORSED TO AM SHIFT WITH STABLE CONDITION WITH LATEST BP 101/62, O2 SAT 96%
[2018-11-20] MEDS ORDERED: HYDROmorphone PFS 2 MG/ML SYR IVP PRN (08:10)
--- NOTE | 2018-11-20 08:28 | NUR ---
EXPLAINED TO PATIENT THAT THE DILAUDID 2MG ORDER FOR PAIN WAS CHANGED TO Q3H, PATIENT VERBALIZES UNDERSTANDING. PATIENT REFUSED VS, ASSESSMENT AT THIS TIME, REQUESTED TO HAVE IT TAKEN LATER WITH HIS PAIN MEDICATIONS.
[2018-11-20] MEDS: BLOOD GLUCOSE MONITORING 1 DEV DEV FS SCH ×2 (09:00→22:00)
[2018-11-20 09:30] VITALS: BP 99/53
--- NOTE | 2018-11-20 10:00 | NUR ---
PATIENT IS AWAKE, ALERT, ORIENTED X4. RESPIRATION EVEN AND UNLABORED. C/O PAIN 10/19, MEDICATED ORDERED. TPN INFUSING AT 70ML/HR VIA PICC LINE TO ROSEMARIE. PICC LINE PATENT AND INTACT. NO ACUTE DISTRESS NOTED. Addendum: 11/20/18 at 1105 by Estephanie Gonzalez RN IN ADDITION TO ABOVE NOTES: COLOSTOMY BAG INTACT.
--- NOTE | 2018-11-20 12:33 | NUR ---
11/20/18 RD FOLLOW UP COMPLETED PLEASE REFER TO NUTRITION PROGRESS NOTE UNDER CARE ACTIVITY FOR ESTIMATED NUTRITION NEEDS. RD RECOMMENDATIONS: 1. RECOMMEND PROBIOTIC DAILY. 2. RECOMMEND VITAMIN C 500 MG BID DAILY TO PROMOTE WOUND HEALING. 3. CONTINUE CURRENT TPN REGIMEN PER MD DISCRETION. 4. CONTINUE REGULAR DIET TOLERATED WITH SUPPLEMENTS AND FOOD BROUGHT FROM HOME IF APPROPRIATE PER MD. 5. RD WILL FOLLOW UP 2-3 DAYS, HIGH RISK. DASH FINCH RD
--- NOTE | 2018-11-20 13:02 | NUR ---
PATIENT C/O PAIN 10/19 TO BILATERAL LOWER EXT. MEDICATION GIVEN ORDERED. PATIENT IS IN BED, ALERT AND ORIENTED X4. TPN CONTINUED AT 70ML/HR. CALL LIGHT WITHIN REACH. Addendum: 11/20/18 at 1317 by Estephanie Gonzalez RN IN ADDITION, PATIENT REFUSES TO BE REPOSITIONED.
--- NOTE | 2018-11-20 13:33 | NUR ---
PATIENT REFUSED TO BE REPOSITIONED Q2H. PATIENT REFUSED WOUND ASSESSMENT. REFUSED TO UNCOVER THE BLANKETS, UNABLE TO ASSESS BILATERAL LOWER EXTREMITIES. EDUCATED THE IMPORTANCE REPOSITIONING AND WOUND ASSESSMENTS.
[2018-11-20 16:00] VITALS: BP 111/57
--- NOTE | 2018-11-20 16:20 | NUR ---
DR MILLER PAGED AND CALLED BACK, NOTIFIED OF INCREASED HR 133, URINE OUTPUT 300ML THIS SHIFT, ORDER FOR NS 40ML/HR IVF RECEIVED.
[2018-11-20] MEDS: NACL 0.9% 1,000 ML IV SCH (18:51)
--- NOTE | 2018-11-20 19:15 | NUR ---
REPORT GIVEN TO BAND SPLITTER NURSE. PATIENT IS IN STABLE CONDITION.
--- NOTE | 2018-11-20 19:20 | NUR ---
RECEIVED PT IN STABLE CONDITION FROM AM NURSE. AWAKE,ALERT AND ORIENTED X4. MED SURG PT. ON BEDREST. FAMILY AT BEDSIDE. WITH WOUND DRESSING ON THE BLE. PT REFUSED TO TOUCH. HAS RT UPPER ARM PICC LINE DOUBLE LUMEN. . CLEAR AND PATENT. TPN INFUSING AND NS ON THE OTHER PORT. NO C/O PAIN AT THIS TIME. BED ON LOW POSITION. CALL LIGHT AND URINAL WITHIN EASY REACH . FREQ ROUNDS NEEDED. WILL CONTINUE TO MONITOR.
--- NOTE | 2018-11-20 20:10 | NUR ---
NEW TPN BAG STARTED. IV ACCESS PICC LINE RU ARM PATENT.
[2018-11-20] MEDS: DEXTROSE IV SCH ×4 (20:16)
[2018-11-20] MEDS: [UNRECOGNIZED DRUG - OTHER] IV SCH ×4 (20:16)
[2018-11-20] MEDS: AMINO ACIDS IV SCH ×4 (20:16)
[2018-11-20] MEDS: MULTIVITAMIN IV SCH ×4 (20:16)
--- NOTE | 2018-11-20 22:00 | NUR ---
C/O SEVERE PAIN ON THE WOUND. MEDICATE ORDERED. WILL CONTINUE TO MONITOR.
[2018-11-21 01:00] VITALS: BP 119/60
--- NOTE | 2018-11-21 01:00 | NUR ---
VITAL SIGNS TAKEN. STABLE. HR STILL ELEVATED 131. BUT PT C/O PAIN. WILL MEDICATE ORDERED.
[2018-11-21] MEDS: HYDROmorphone PFS 2 MG/ML SYR IVP PRN ×8 (01:10→22:59)
--- NOTE | 2018-11-21 02:30 | NUR ---
PT ASLEEP. NO S/S OF ANY PAIN NOTED.
--- NOTE | 2018-11-21 04:18 | NUR ---
PT REFUSED TO CHANGE DRESSING ON THE PICC LINE. WILL TRY TO ENDORSE TO ORLY OLVERA.
[2018-11-21] MEDS: GABAPENTIN 100 MG CAP PO SCH ×5 (06:00→23:37)
--- NOTE | 2018-11-21 06:00 | NUR ---
PT REFUSED TO HAVE COLOSTOMY BAG EMPTIED/CHANGED THIS AM.
--- NOTE | 2018-11-21 07:12 | NUR ---
ENDORSED PT IN STABLE CONDITION TO AM NURSE.
--- NOTE | 2018-11-21 07:13 | NUR ---
RECEIVED ENDORSEMENT FROM DIRECTOR CLINICAL PHARMACOLOGY NURSE. PATIENT IS AAOX4, URUGUAYAN SPEAKING. RESPIRATIONS ARE EVEN AND UNLABORED ON ROOM AIR. PATIENT WAS MEDICATED FOR PAIN. RIGHT ARM DOUBLE LUMEN PICC INTACT, PATENT, AND INFUSING IVF. PLAN OF CARE WAS REVIEWED WITH PATIENT, PATIENT VERBALIZED UNDERSTANDING. SAFETY MEASURES IN PLACE, CALL LIGHT WITHIN REACH.
[2018-11-21 08:00] VITALS: BP 95/44
[2018-11-21] MEDS: BLOOD GLUCOSE MONITORING 1 DEV DEV FS SCH ×2 (09:00→21:00)
--- NOTE | 2018-11-21 09:00 | NUR ---
PATIENT RESTING IN BED WATCHING TV, NO OTHER NEEDS AT THIS TIME.
--- NOTE | 2018-11-21 10:12 | NUR ---
CENTRAL LINE DRESSING WAS CHANGED USING STERILE TECHNIQUE. PATIENT TOLERATED WELL. COLOSTOMY BAG WAS CHANGED WELL. PATIENT REFUSED TO HAVE FECES AROUND STOMA CLEANED OR TO HAVE THE CONNECTOR CHANGED DESPITE EDUCATING PATIENT OF INFECTION PREVENTION. NO OTHER NEEDS AT THIS TIME.
--- NOTE | 2018-11-21 11:18 | NUR ---
ADMINISTERED SCHEDULED MEDICATION. PATIENT TOLERATED WELL. NO OTHER NEEDS AT THIS TIME.
--- NOTE | 2018-11-21 13:00 | NUR ---
PATIENT REFUSED WOUND CARE. NO OTHER NEEDS AT THIS TIME.
--- NOTE | 2018-11-21 14:56 | NUR ---
PATIENT IN BED RESTING WATCHING TV. NO OTHER NEEDS AT THIS TIME.
[2018-11-21] MEDS: NACL 0.9% 1,000 ML IV SCH (15:35)
[2018-11-21 16:00] VITALS: BP 102/46
[2018-11-21] MEDS: ACETAMINOPHEN 325 MG TAB PO PRN (16:19)
--- NOTE | 2018-11-21 16:27 | NUR ---
ADMINISTERED TYLENOL FOR FEVER OF 102.9. ICE PACKS PROVIDED, INSTRUCTED PATIENT TO PLACE UNDER ARMPITS. PATIENT REFUSED TO BE UNCOVERED, STATED TO "LOWER THE ROOM TEMPERATURE" DESPITE PATIENT TEACHING. CALLED DR. RODRIGUEZ PER DR. MILLER TO SEE IF HE WISHED TO START PATIENT ON ABX AGAIN.
--- NOTE | 2018-11-21 17:39 | NUR ---
ADMINISTERED SCHEDULED MEDICATIONS. PATIENT TOLERATED WELL. TEMP NOW 98.1, HR 125. NO OTHER NEEDS AT THIS TIME.
--- NOTE | 2018-11-21 19:10 | NUR ---
ENDORSED TO MEMBERSHIP SALES REPRESENTATIVE NURSE FOR CONTINUITY OF CARE. PATIENT IS STABLE AT THIS TIME.
--- NOTE | 2018-11-21 19:48 | NUR ---
PT C/O PAIN - BP 90/60 , O2 SAT 99 % INFORME CHARGE NURSE IF WILL THE DILAUDID INSPITE OF THE BP - THE CHARGE NURSE SAID GIVE IT FOR PAIN - PT'S MOTHER I WITNESSED - WILL CONT. TO MONITOR.
[2018-11-21] MEDS: MULTIVITAMIN IV SCH ×4 (20:11)
[2018-11-21] MEDS: [UNRECOGNIZED DRUG - OTHER] IV SCH ×4 (20:11)
[2018-11-21] MEDS: DEXTROSE IV SCH ×4 (20:11)
[2018-11-21] MEDS: AMINO ACIDS IV SCH ×4 (20:11)
[2018-11-21] MEDS ORDERED: VANCOMYCIN PER PHARMACY MC PRN (21:00)
[2018-11-21] MEDS ORDERED: VANCOMYCIN 1GM/DEXT 5% PREMIX 200 ML IV ONE (21:20)
[2018-11-21 21:47] LABS: HEMATOCRIT 24.5 % (36-52); HEMOGLOBIN 7.8 g/dL (12.0-18.0); MEAN CORPUSCULAR HEMOGLOBIN 29 pg (27-31); MEAN CORPUSCULAR HGB CONC 32 g/dL (33-37); MEAN CORPUSCULAR VOLUME 91.5 fL (80-94); PLATELET COUNT (AUTO) 438 K/uL (140-450); RED BLOOD CELL COUNT(AUTO) 2.68 MIL/uL (4.20-6.10); RED CELL DISTRIBUTION WIDTH 15.4 % (11.6-13.7); WHITE BLOOD COUNT (AUTO) 15.8 K/uL (4.8-10.8)
[2018-11-21] MEDS ORDERED: VANCOMYCIN 1,000 MG VIAL ONE (21:56)
[2018-11-21 22:45] LABS: LYMPHOCYTES % (MANUAL) 3 % (20-46); METAMYELOCYTES % 1 % (0-0); MONOCYTES % (MANUAL) 3 % (5-12); MYELOCYTES % 1 % (0-0)
[2018-11-21] MEDS: fentaNYL 0.075 MG/HR PATCH TD SCH (23:47)
--- NOTE | 2018-11-21 23:47 | NUR ---
FENTANYL PATCH GIVEN @ 2347 INSTEAD OF 2100 . I CLOSELY MONITORED THE BP WHILE AGO - BP 110/60 WHEN I GAVE THE FENTANYL PATCH. - WILL CONT. TO MONITOR.
[2018-11-22] VITALS: BP 110/62
[2018-11-22] MEDS ORDERED: PIPERACILLIN/TAZOBACTAM 3.375 GM VIAL IV ONE ×2 (00:47→05:08)
[2018-11-22] MEDS: PIPERACILLIN/TAZOBACTAM 3.375 GM in DEXTROSE 5% 50 ML IV SCH ×4 (00:56→18:31)
[2018-11-22] MEDS: HYDROmorphone PFS 2 MG/ML SYR IVP PRN ×6 (02:05→22:37)
[2018-11-22] MEDS: GABAPENTIN 100 MG CAP PO SCH ×4 (05:37→23:19)
[2018-11-22 06:50] LABS: BILIRUBIN,URINE NEGATIVE (NEGATIVE); BLOOD, URINE NEGATIVE (NEGATIVE); COLOR,URINE YELLOW (YELLOW); LEUKOCYTE ESTERASE ,URINE NEGATIVE (NEGATIVE); NITRITE, URINE NEGATIVE (NEGATIVE); PH,URINE 5.5 (5.0-9.0); UGLUCOSE NEGATIVE (NEGATIVE)
[2018-11-22] MEDS: NACL 0.9% 1,000 ML IV SCH ×2 (07:00→18:32)
[2018-11-22 07:12] LABS: RBC,URINE 0-5 /HPF (0-5); WBC,URINE 0-5 /HPF (0-5)
[2018-11-22 07:14] LABS: APPEARANCE,URINE SLIGHTLY HAZY (CLEAR); URINE AMORPHOUS URATE 1+ /HPF (None Seen)
--- NOTE | 2018-11-22 07:20 | NUR ---
RECEIVED BEDSIDE REPORT FROM STEEL HANDLER NURSE FOR CONTINUITY OF CARE. PATIENT IS AWAKE AND RESTING ON BED AT THIS TIME. PATIENT IS ABLE TO FOLLOW COMMAND AND MAKE NEEDS KNOWN. PATIENT IS AAOX4. RESPIRATION EVEN AND UNLABORED ON ROOM AIR. DENIED SOB AND DIZZINESS. STATED THAT HE HAS 4/10 PAIN AND WHICH HE CAN TOLERATED AT THIS TIME AND SAID "I JUST WANT TO GET SOME SLEEP NOW." NO SIGNS OF DISTRESS NOTED. PICC LINE IN ROSEMARIE, CLEAN AND INTACT, INFUSING IV AND TPN PER MD ORDER. PATIENT IS CONTINENT AND ABLE TO USE URANAL BY BEDSIDE. OSTOMY BAG IN PLACE, CLEAN AND EMPTY. DISCUSSED PLAN OF CARE WITH PATIENT AND PATIENT VERBALIZED UNDERSTANDING. NPO SIGN POSTED ON DOOR. SAFETY MEASURES IN PLACE. FALL RISK PROTOCOL IN PLACE. INSTRUCTED TO USE THE CALL LIGHT FOR ANY ASSISTANCE AND PATIENT WAS AWARE. BED IN LOW POSITION AND CALL LIGHT WITHIN REACH. WOUND BED ACTIVATED.
[2018-11-22 08:00] VITALS: BP 92/47
[2018-11-22 08:44] LABS: ANION GAP 13.2 (8-16); CREATININE 0.9 mg/dL (0.7-1.3); POTASSIUM 4.2 mmol/L (3.5-5.1)
[2018-11-22 08:49] LABS: MAGNESIUM 1.9 mg/dL (1.8-2.4); PHOSPHORUS 2.2 mg/dL (2.5-4.9)
[2018-11-22] MEDS: BLOOD GLUCOSE MONITORING 1 DEV DEV FS SCH ×2 (09:00→20:53)
--- NOTE | 2018-11-22 09:56 | NUR ---
PATIENT COMPLAINED THAT HE HAS SEVERE PAIN 9/10 ON HIS UPPER BACK AND LOWER LEFT LEG, PATIENT IS MOANING, GUARDING AND FACIAL GRIMACING. CHECKED VITAL SIGNS AND RECEIVED TEMP 98.7, 100/52, PULSE 122, SPO2 100% ON RA, RR 18. ADMINISTERED PRN PAIN MED HYDROMORPHONE VIA IVP PER MD ORDER, PATIENT TOLERATED WELL. MED EDUCATION PROVIDED TO PATIENT AND PATIENT VERBALIZED UNDERSTANDING. PATIENT IS AWAKE AND RESTING ON BED AT THIS TIME. SAFETY MEASURES IN PLACE. BED IN LOW POSITION AND CALL LIGHT WITHIN REACH. WOUND BED ACTIVATED. NPO ENFORCED AND PATIENT WAS AWARE.INSTRUCTED PATIENT TO USE THE CALL LIGHT FOR ANY ASSISTANCE AND PATIENT WAS AWARE.
--- NOTE | 2018-11-22 11:39 | NUR ---
PATIENT IS RESTING ON BED AT THIS TIME. RESPIRATION EVEN AND UNLABORED ON RA. NO SIGNS OF DISTRESS NOTED. SAFETY MEASURES IN PLACE. BED IN LOW POSITION AND CALL LIGHT WITHIN REACH. WOUND BED ACTIVATED. INSTRUCTED PATIENT TO USE THE CALL LIGHT FOR ANY ASSISTANCE AND PATIENT SAID OK.
--- NOTE | 2018-11-22 12:20 | NUR ---
ADMINISTERED MED VIA IVPB PER MD ORDER, MED EDUCATION PROVIDED TO PATIENT AND PATIENT VERBALIZED UNDERSTANDING. PATIENT SAID "I DON'T WANT TO TAKE THE PILL RIGHT NOW, CAN I GET THEM IN 30MINS? I WANT TO REST FIRST." MED EDUCATION PROVIDED AND WILL ADMINISTER PO GABAPENTIN LATER PER PATIENT'S REQUEST. PATIENT IS RESTING ON BED AT THIS TIME. NO SIGNS OF DISTRESS NOTED. BED IN LOW POSITION AND CALL LIGHT WITHIN REACH. WOUND BED ACTIVATED. INSTRUCTED PATIENT TO USE THE CALL LIGHT FOR ANY ASSISTANCE AND PATIENT WAS AWARE.
[2018-11-22] MEDS ORDERED: MIDAZOLAM 2 MG/2 ML VIAL ONE (13:04)
[2018-11-22] MEDS ORDERED: KETAMINE 500 MG/5 ML VIAL ONE (13:04)
--- NOTE | 2018-11-22 13:06 | NUR ---
UNABLE TO ADMINISTER GABAPENTIN DUE TO PATIENT IS OFF UNIT FOR DRESSING CHANGE PROCEDURE WITH DR CAICEDO.
[2018-11-22] MEDS ORDERED: ONDANSETRON 4 MG/2 ML VIAL IVP PRN (13:45)
[2018-11-22] MEDS ORDERED: HYDROmorphone 1 MG/ML AMP IVP PRN (13:45)
[2018-11-22] MEDS ORDERED: HYDROmorphone PFS 2 MG/ML SYR ONE (13:48)
[2018-11-22] MEDS: MULTIVITAMIN IV SCH ×8 (14:23→20:33)
[2018-11-22] MEDS: AMINO ACIDS IV SCH ×8 (14:23→20:33)
[2018-11-22] MEDS: [UNRECOGNIZED DRUG - OTHER] IV SCH ×8 (14:23→20:33)
[2018-11-22] MEDS: DEXTROSE IV SCH ×8 (14:23→20:33)
--- NOTE | 2018-11-22 14:46 | NUR ---
PATIENT CAME BACK TO THE UNIT ACCOMPANIED BY OR NURSE. PATIENT COMPLAINED THAT HE HAS SEVERE PAIN 10/10 ON HIS LEFT LEG. PATIENT IS CRYING,GUARDING AND FACIAL GRIMACING. CHECKED VITAL SIGNS AND RECEIVED TEMP 98.5, 119/71, PULSE 131, SPO2 98% ON RA, RR 18, PAIN 10/10. ADMINISTERED PRN PAIN MED HYDROMORPHONE VIA IVP PER MD ORDER, PATIENT TOLERATED WELL. MED EDUCATION PROVIDED TO PATIENT AND PATIENT VERBALIZED UNDERSTANDING. PATIENT IS RESTING ON BED AT THIS TIME. SAFETY MEASURES IN PLACE. BED IN LOW POSITION AND CALL LIGHT WITHIN REACH. WOUND BED ACTIVATED. INSTRUCTED PATIENT TO USE THE CALL LIGHT FOR ANY ASSISTANCE AND PATIENT WAS AWARE.
--- NOTE | 2018-11-22 15:08 | NUR ---
RECEIVED A CALL FROM PATIENT'S MOM MELITA AND STATING THAT "I NEED TO DR TO CHANGE MY SON'S PAIN MED DILAUDID BACK TO EVERY 2 HOURS, HE IS IN TERRIBLE PAIN. 3 HOURS IS TOO BIG OF THE GAP. PLEASE CALL THE DR AND MAKE THE REQUEST." PAGED DR MILLER AND AWAITING FOR DR TO CALL BACK.
--- NOTE | 2018-11-22 15:11 | NUR ---
RECEIVED A CALL BACK FROM DR MILLER AND INFORMED DR MILLER ABOUT PATIENT'S CURRENT CONDITION. RECEIVED TELEPHONE ORDER FROM DR MILLER TO GIVE ANOTHER DOSE OF DILAUDID 2MG/1ML IVP ONCE, REPEAT AND CONFIRMED ORDER WITH DR MILLER.
--- NOTE | 2018-11-22 15:25 | NUR ---
PATIENT STILL COMPLAINED THAT HE HAS SEVERE PAIN 10/10 ON HIS LEFT LEG. PATIENT IS CRYING,GUARDING AND FACIAL GRIMACING. CHECKED VITAL SIGNS AND RECEIVED TEMP 98.8, 108/73, PULSE 130, SPO2 99% ON RA, RR 18, PAIN 10/10. ADMINISTERED SCHEDULED PAIN MED HYDROMORPHONE VIA IVP PER MD ORDER, PATIENT TOLERATED WELL. PATIENT IS RESTING ON BED AT THIS TIME. SAFETY MEASURES IN PLACE. BED IN LOW POSITION AND CALL LIGHT WITHIN REACH. WOUND BED ACTIVATED. INSTRUCTED PATIENT TO USE THE CALL LIGHT FOR ANY ASSISTANCE AND PATIENT WAS AWARE.
[2018-11-22] MEDS ORDERED: HYDROmorphone 1 MG/ML AMP IVP SCH (15:30)
[2018-11-22] MEDS ORDERED: HYDROmorphone PFS 2 MG/ML SYR IVP SCH (15:30)
[2018-11-22 16:00] VITALS: BP 115/50
--- NOTE | 2018-11-22 17:03 | NUR ---
PATIENT AWAKE AND RESTING ON BED AT THIS TIME. MOTHER MELITA BY BEDSIDE AND REQUESTED TO SPEAK WITH DR MILLER. PAGED DR MILLER. NO SIGNS OF DISTRESS NOTED. SAFETY MEASURES IN PLACE. BED IN LOW POSITION AND CALL LIGHT WITHIN REACH. INSTRUCTED PATIENT TO USE THE CALL LIGHT FOR ANY ASSISTANCE AND PATIENT SAID OK.
--- NOTE | 2018-11-22 17:13 | NUR ---
RECEIVED A CALL BACK FROM DR MILLER AND INFORMED DR MILLER THAT PATIENT'S MOTHER MELITA ALSO WANT TO DISCUSS HER CONCERN WITH HIM. MELITA IS TALKING TO DR MILLER ON THE PHONE. RECEIVED TELEPHONE ORDER FROM DR MILLER, RESTORIL PO 15 MG HS PRN FOR INSOMNIA, FENTANYL PATCH 100 MCG Q72H 1ST DOSE TODAY. REPEATED AND CONFIRMED ORDERS WITH DR MILLER. WILL INPUT ORDER.
[2018-11-22] MEDS ORDERED: TEMAZEPAM 15 MG CAP PO PRN (17:20)
--- NOTE | 2018-11-22 18:34 | NUR ---
ADMINISTERED MEDS PER MD ORDER, PATIENT TOLERATED WELL. MOTHER MELITA BY BEDSIDE. PATIENT STATED THAT HE IS STILL IN A LOT OF PAIN LIKE 8/10, EXPLAINED TO PATIENT THE NEXT DOSE OF PAIN MED IS NOT DUE YET, AND PATIENT VERBALIZED UNDERSTANDING. SAFETY MEASURES IN PLACE.
[2018-11-22] MEDS: VANCOMYCIN 500 MG in DEXTROSE 5% 100 ML IV SCH (18:58)
--- NOTE | 2018-11-22 19:09 | NUR ---
REPORT RECEIVED FROM AM NURSE AT BEDSIDE. PT IN STABLE CONDITION. AAOX4. INTRODUCED SELF TO PT. BOARD UPDATED. PT HAS COMPLAINTS OF PAIN. AM NURSE WILL MEDICATE. NO SOB. AFEBRILE. PT IS BEDBOUND. IV SITE R UA DOUBLE LUMEN PICC RUNNING NS@80ML/HR AND TPN@70ML/HR PATENT AND INTACT. SKIN WARM, DRY, AND NOT INTACT DUE TO MULTIPLE WOUNDS AND SKIN GRAFTS. BED LOCKED IN LOW POSITION. CALL CONN WITHIN REACH. SAFETY PRECAUTION IN PLACE. ALL NEEDS MET AT THIS TIME.
--- NOTE | 2018-11-22 19:16 | NUR ---
PATIENT COMPLAINED THAT HE HAS SEVERE PAIN 10/10 ON HIS LOWER LEG, PATIENT IS CRYING, GUARDING AND FACIAL GRIMACING. CHECKED VITAL SIGNS AND RECEIVED TEMP 99, BP 114/63, PULSE 140, SPO2 100% ON RA, RR 18. ADMINISTERED PRN PAIN MED HYDROMORPHONE VIA IVP PER MD ORDER, PATIENT TOLERATED WELL. MED EDUCATION PROVIDED TO PATIENT AND PATIENT VERBALIZED UNDERSTANDING. PATIENT IS AWAKE AND RESTING ON BED AT THIS TIME. MOTHER MELITA BY BEDSIDE. SAFETY MEASURES IN PLACE. BED IN LOW POSITION AND CALL LIGHT WITHIN REACH. WOUND BED ACTIVATED. INSTRUCTED PATIENT TO USE THE CALL LIGHT FOR ANY ASSISTANCE AND PATIENT WAS AWARE. 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
--- NOTE | 2018-11-22 19:57 | NUR ---
CRITICAL LAB VALUE GRAM POSITIVE COCCI IN BLOOD CULTURE. DR. RODRIGUEZ NOTIFIED. ORDERED TO STOP ZOSYN, CONTINUE VANCO, AND CHANGE PICC LINE SITE TO LEFT UA.
[2018-11-22] MEDS: fentaNYL 0.1 MG/HR PATCH TD SCH (20:33)
--- NOTE | 2018-11-22 20:33 | NUR ---
TPN HUNG AND RUNNING. DURAGESIC PLACED ON LEFT INNER SHOULDER. TYL GIVEN FOR TEMPERATURE OF 100.0. TEMAZEPAM GIVEN FOR INSOMNIA. PT TOLERATED WELL.
[2018-11-22] MEDS: ACETAMINOPHEN 325 MG TAB PO PRN (20:34)
--- NOTE | 2018-11-22 22:37 | NUR ---
DILAUDID GIVEN FOR 10/10 PAIN. PT TOLERATED WELL.
--- NOTE | 2018-11-22 23:19 | NUR ---
NEURONTIN GIVEN PO. PT TOLERATED WELL.
[2018-11-23] VITALS: BP 105/57
[2018-11-23] MEDS: HYDROmorphone PFS 2 MG/ML SYR IVP PRN ×7 (01:28→21:56)
--- NOTE | 2018-11-23 01:28 | NUR ---
DILAUDID GIVEN FOR 10/10 PAIN. PT TOLERATED WELL.
--- NOTE | 2018-11-23 03:25 | NUR ---
PT AWAKE AND ALERT WATCHING TV IN BED. NO S/S OF DISTRESS NOTED. WILL CONTINUE TO MONITOR.
--- NOTE | 2018-11-23 04:18 | NUR ---
DILAUDID GIVEN FOR 10/10 PAIN. PT TOLERATED WELL.
[2018-11-23] MEDS: VANCOMYCIN 500 MG in DEXTROSE 5% 100 ML IV SCH ×2 (05:00→18:15)
[2018-11-23] MEDS: GABAPENTIN 100 MG CAP PO SCH ×3 (05:00→18:14)
--- NOTE | 2018-11-23 05:00 | NUR ---
TALAT SEPULVEDA. NEURONTIN GIVEN PO. PT TOLERATED WELL.
--- NOTE | 2018-11-23 06:10 | NUR ---
PT UP AND AWAKE WATCHING TV. NO S/S OF DISTRESS NOTED. PT IN STABLE CONDITION.
--- NOTE | 2018-11-23 07:04 | NUR ---
DILAUDID GIVEN FOR 10/10 PAIN. PT TOLERATED WELL.
--- NOTE | 2018-11-23 07:22 | NUR ---
RECEIVED BEDSIDE REPORT FROM WHAT JOB TITLES MEAN NURSE FOR CONTINUITY OF CARE. PATIENT IS AWAKE AND RESTING ON BED AT THIS TIME. PATIENT IS AAOX4. RESPIRATION EVEN AND UNLABORED ON RA. NO SIGNS OF DISTRESS NOTED. PICC LINE ON ROSEMARIE, PATENT AND INTACT, INFUSING PER MD ORDER. AWAITING FOR PICC LINE NURSE FOR NEW PICC LINE INSERTION, PATIENT WAS AWARE. PATIENT IS CONTINENT AND ABLE URANAL BY BEDSIDE. SKIN BURN NOTED. OSTOMY BAG IN PLACE. DISCUSSED PLAN OF CARE WITH PATIENT AND PATIENT VERBALIZED OK. SAFETY MEASURES IN PLACE. BED IN LOW POSITION AND CALL LIGHT WITHIN REACH. WOUND BED ACTIVATED. INSTRUCTED PATIENT TO USE THE CALL LIGHT FOR ANY ASSISTANCE AND PATIENT WAS AWARE.
[2018-11-23 08:00] VITALS: BP 95/43
[2018-11-23 08:32] LABS: MAGNESIUM 1.8 mg/dL (1.8-2.4); PHOSPHORUS 3.3 mg/dL (2.5-4.9)
[2018-11-23] MEDS: BLOOD GLUCOSE MONITORING 1 DEV DEV FS SCH ×2 (09:00→21:38)
--- NOTE | 2018-11-23 09:17 | NUR ---
PAGED DR RODRIGUEZ ON REGARD OF PICC LINE RN CREG'S CONCERN. AWAITING FOR DR RODRIGUEZ TO RETURN CALL.
--- NOTE | 2018-11-23 09:27 | NUR ---
RECEIVED A CALL BACK FROM DR RODRIGUEZ AND RELATED PICC LINE RN CREG'S MESSAGE, DR RODRIGUEZ WAS AWARE. PER DR RODRIGUEZ, DC THE PICC LINE AND INSERT A PERIPHERAL LINE.
--- NOTE | 2018-11-23 09:30 | NUR ---
PATIENT REFUSED TO REMOVE PICC LINE AT THIS TIME AND STATED "TAKE IT OUT WHEN MY NEXT DOSE OF PAIN MED IS GIVING. I DON'T WANT TO DO IT NOW." INFECTION EDUCATION PROVIDED TO PATIENT AND PATIENT VERBALIZED UNDERSTANDING AND INSISTING NOT TAKE OUT THE PICC LINE. WILL REMOVE PICC LINE ONCE ADMINISTER PAIN MED. PATIENT AWAKE AND RESTING IN BED. SAFETY MEASURES IN PLACE. BED IN LOW POSITION AND CALL LIGHT WITHIN REACH. INSTRUCTED PATIENT TO USE THE CALL LIGHT FOR ANY ASSISTANCE AND PATIENT WAS AWARE.
--- NOTE | 2018-11-23 10:18 | NUR ---
ATIENT COMPLAINED THAT HE HAS SEVERE PAIN 10/10 ON HIS LOWER LEG, PATIENT IS CRYING, GUARDING AND FACIAL GRIMACING. CHECKED VITAL SIGNS AND RECEIVED TEMP 98.5, BP 112/60, PULSE 135, SPO2 100% ON RA, RR 18. ADMINISTERED PRN PAIN MED HYDROMORPHONE VIA IVP PER MD ORDER, PATIENT TOLERATED WELL. MED EDUCATION PROVIDED TO PATIENT AND PATIENT VERBALIZED UNDERSTANDING. CHECKED BLOOD GLUCOSE AND RECEIVED 86. PATIENT IS AWAKE AND RESTING ON BED AT THIS TIME. MOTHER MELITA BY BEDSIDE. SAFETY MEASURES IN PLACE. BED IN LOW POSITION AND CALL LIGHT WITHIN REACH. WOUND BED ACTIVATED. INSTRUCTED PATIENT TO USE THE CALL LIGHT FOR ANY ASSISTANCE AND PATIENT WAS AWARE.
[2018-11-23] MEDS: NACL 0.9% 1,000 ML IV SCH ×2 (10:19→19:10)
--- NOTE | 2018-11-23 10:40 | NUR ---
REMOVED PICC LINE, CANNULA INTACT AND COMPLETED. NO BLEEDING AT INSERT SITE, PATIENT TOLERATED WELL. SENT PICC LINE TIP TO LAB.
--- NOTE | 2018-11-23 11:05 | NUR ---
INFORMED DR MILLER ON DR RODRIGUEZ'S ORDER AND DR MILLER WAS AWARE AND AGREED TO TAKE OUT PICC LINE AND INSERT A PERIPHERAL IV.
[2018-11-23] MEDS ORDERED: TPN PER PHARMACY MC PRN (11:40)
--- NOTE | 2018-11-23 11:40 | NUR ---
22G IV INSERTED ON LFA, PATIENT TOLERATED WELL. CONTINUE INFUSING IVF PER MD ORDER. PATIENT AWAKE AND RESTING ON BED AT THIS TIME. NO SIGNS OF DISTRESS NOTED. SAFETY MEASURES IN PLACE. BED IN LOW POSITION AND CALL LIGHT WITHIN REACH. INSTRUCTED PATIENT TO USE THE CALL LIGHT FOR ANY ASSISTANCE AND PATIENT WAS AWARE.
--- NOTE | 2018-11-23 12:36 | NUR ---
DR CAICEDO WAS ASSESSING PATIENT BY PATIENT.. RECEIVED VERBAL ORDER FROM DR CAICEDO TO GIVE AN ONCE TIME DOSE OF DILAUDID 2MG/1ML IVP FOR PATIENT'S SEVERE PAIN, REPEAT AND CONFIRMED ORDER WITH DR CAICEDO.
--- NOTE | 2018-11-23 12:50 | NUR ---
PATIENT COMPLAINED THAT HE HAS SEVERE PAIN 10/10 ON HIS LOWER LEG, PATIENT IS CRYING, GUARDING AND FACIAL GRIMACING. CHECKED VITAL SIGNS AND RECEIVED TEMP 98.9, BP 115/60, PULSE 121, SPO2 100% ON RA, RR 18. ADMINISTERED PRN PAIN MED HYDROMORPHONE VIA IVP PER MD ORDER, PATIENT TOLERATED WELL. MED EDUCATION PROVIDED TO PATIENT AND PATIENT VERBALIZED UNDERSTANDING. PATIENT IS AWAKE AND RESTING ON BED AT THIS TIME. SAFETY MEASURES IN PLACE. BED IN LOW POSITION AND CALL LIGHT WITHIN REACH. WOUND BED ACTIVATED. INSTRUCTED PATIENT TO USE THE CALL LIGHT FOR ANY ASSISTANCE AND PATIENT WAS AWARE.
[2018-11-23] MEDS ORDERED: HYDROmorphone PFS 2 MG/ML SYR IVP SCH (13:00)
--- NOTE | 2018-11-23 13:15 | NUR ---
PT REFUSED TO BE REPOSITIONING. SKIN CARE AND WOUND CARE EDUCATION PROVIDED AND EDUCATED PATIENT ON WOUND CARE AND REPOSITIONING CAN PREVENT SKIN BREAKDOWN. PATIENT VERBALIZED UNDERSTANDING, BUT INSISTED NOT WANT TO BE TURN. PATIENT IS RESTING ON BED AT THIS TIME. NO SIGNS OF DISTRESS NOTED. SAFETY MEASURES IN PLACE. BED IN LOW POSITION AND CALL LIGHT WITHIN REACH. WOUND BED ACTIVATED. INSTRUCTED PATIENT TO USE THE CALL LIGHT FOR ANY ASSISTANCE AND PATIENT WAS AWARE.
--- NOTE | 2018-11-23 13:50 | NUR ---
PATIENT AWAKE AND TALKING TO MOTHER MELITA BY BEDSIDE. NO SIGNS OF DISTRESS NOTED. SAFETY MEASURES IN PLACE.
--- NOTE | 2018-11-23 15:46 | NUR ---
11/23/18 RD FOLLOW UP COMPLETED PLEASE REFER TO NUTRITION ASSESSMENT UNDER CARE ACTIVITY FOR ESTIMATED NUTRITIONAL NEEDS. 1. RECOMMEND INCREASING TPN INFUSION WHEN MEDICALLY APPROPRIATE TO MEET 75% OF ESTIMATED NEEDS 2. RECOMMEND PROBIOTIC QD. 3. CONTINUE REGULAR DIET TOLERATED WITH SUPPLEMENTS AND FOOD BROUGHT FROM HOME IF APPROPRIATE PER MD. 4. RD WILL FOLLOW UP 2-3 DAYS, HIGH RISK ALEXEI JOHNSTON RD
[2018-11-23 16:00] VITALS: BP 91/49
--- NOTE | 2018-11-23 17:31 | NUR ---
ME PLANNING TO ARRANGE FAMILY MEETING TO INCLUDE DR MILLER, DR AMY CAICEDO, DR MILLER, (ATTEMPTED TO CONTACT DR GREEN (NO ANSWER) SCHEDULED MEETING AT 12:15 FOR TOMORROW 11/24/18. CALLED [facility] SPOKE SCOTT NOVAK AT [phone]. ADVISED TO SPEAK WITH HAYLEE SILVESTRE PHONE NUMBER [phone] LEFT MESSAGE FOR HAYLEE. CALLED IE AFTER NO RETURN CALL SPOKE WITH KISHORE AT [phone] ADVISED PHYSICIANS ARE AGREEABLE AND ABLE TO ATTEND 11/24/18 AT 12:15. HE ADVISED SHORT NOTICED HE IS ABLE TO HAVE AN [facility] CM ANIMAL ANATOMY TEACHER PHONE IN HOWEVER UNABLE TO HAVE CM COME TO HOSPITAL. [facility] WILL REACH OUT TO CM CITY CLERK AT PROPOSED TIME. INFORMATION DISCUSSED WITH CM RAKEL, PATIENT AT BEDSIDE, AND MOTHER WAS IN THE ROOM. ALL PARTIES AGREEABLE TO PLAN. ADVISED [facility] CM DIRECTOR HAD SPOKE TO DR. AMY CAICEDO WHO ADVISED PATIENT NEEDED TISSUE AND SKIN GRAFTING TO THE WOUND AND HIS RECOMMENDATION WAS HIGHER LEVEL OF CARE. CM DIRECTOR ALSO DISCUSSED THIS WITH [facility] CM KISHORE ADVISED [facility] NEEDS [facility] TO ASSIST IN TRANSFER ARRANGEMENTS SEVERAL HOSPITALS WERE ATTEMPTED AND DECLINED ACCEPTING PATIENT. CM DIRECTOR NOTED PATIENT ROOM VERY WARM HEATER IS ON. PATIENT AND MOTHER STATE PATIENT LIKES TEMPERATURE VERY WARM THAT COOL AIR CAUSES PAIN TO HIS LEGS AND WOUNDS. SPOKE TO NURSING REGARDING HEATED ROOM VERY WARM AND WITH THE DOOR CLOSED. Addendum: 11/24/18 at 1649 by Dasia Pederson Meeting held today with patient, patient's mother, attending Dr. Miller, BUBBA Vaughan, charge nurse, bedside nurse, Rakel pillowcase maker and Dasia Rodgers mine engineering manager of . We discussed goals of care, alternatives for treatment, discharge plan and current barriers. Mother and pt are refusing placement at a SNF as mother expressed concerns about having to transfer the pt out for wound care. Mother is agreeable only for LTAC or higher level of care placement. Pt and mother were educated about concerns with the pain management system. Pt also agreed to have wound care done at the bedside. Mother stated she's open for placement at a different county if needed. Sw will continue following up with [facility] on placement. [facility] team called in an attempt to participate in this meeting however their time was limited for 15 min and this meeting started late. Dasia Pederson, [facility] [phone]
--- NOTE | 2018-11-23 18:15 | NUR ---
ADMINISTERED SCHEDULED MEDS PER MD ORDER, PATIENT TOLERATED WELL. MEDS EDUCATION PROVIDED TO PATIENT AND MOTHER MELITA BY BEDSIDE, BOTH VERBALIZED UNDERSTANDING. PATIENT AWAKE AND TALKING TO MOTHER MELITA. NO SIGNS OF DISTRESS NOTED. SAFETY MEASURES IN PLACE. BED IN LOW POSITION AND CALL LIGHT WITHIN REACH.
--- NOTE | 2018-11-23 19:06 | NUR ---
PATIENT COMPLAINED THAT HE HAS SEVERE PAIN 9/10 ON HIS LOWER LEG, PATIENT IS CRYING, GUARDING AND FACIAL GRIMACING. MOTHER MELITA BY BEDSIDE AND STATED THAT "MY SON CAN'T HANDLE THIS KIND OF PAIN ANY LONGER, PLEASE GIVE HIM THE PAIN MED."ADMINISTERED PRN PAIN MED HYDROMORPHONE VIA IVP PER MD ORDER, PATIENT TOLERATED WELL. MED EDUCATION PROVIDED TO PATIENT AND PATIENT VERBALIZED UNDERSTANDING. PATIENT IS AWAKE AND RESTING ON BED AT THIS TIME. SAFETY MEASURES IN PLACE. BED IN LOW POSITION AND CALL LIGHT WITHIN REACH. WOUND BED ACTIVATED. INSTRUCTED PATIENT TO USE THE CALL LIGHT FOR ANY ASSISTANCE AND PATIENT WAS AWARE. WILL ENDORSE PAIN REASSESSMENT TO ON COMING SHIFT NURSE.
--- NOTE | 2018-11-23 19:33 | NUR ---
ENDORSED PATIENT AT BEDSIDE TO TONSORIAL ARTIST NURSE FOR CONTINUITY OF CARE. PATIENT IS TALKING TO HIS MOTHER MELITA BY BEDSIDE. PATIENT IS IN STABLE CONDITION.
--- NOTE | 2018-11-23 20:22 | NUR ---
GOT VERBAL CONSENT FROM PHYSICIAN VIA TELEPHONE WITH DR. MILLER FOR LEFT UPPER ARM PICC LINE INSERTION, W/ 2 NURSES WITNESS, KODI AND MYSELF.
--- NOTE | 2018-11-23 20:33 | NUR ---
PICC LINE INSERTED BY PICC LINE NURSE, AWAITING USD GUIDED VASCULAR ACCESS AND XRAY OF THE CHEST FOR CONFIRMATION OF PICC LINE INSERTION
--- NOTE | 2018-11-23 21:00 | NUR ---
USD WAS DONE STAT; AWAITING FOR RESULT.
[2018-11-23] MEDS: DEXTROSE IV SCH ×4 (21:38)
[2018-11-23] MEDS: [UNRECOGNIZED DRUG - OTHER] IV SCH ×4 (21:38)
[2018-11-23] MEDS: AMINO ACIDS IV SCH ×4 (21:38)
[2018-11-23] MEDS: MULTIVITAMIN IV SCH ×4 (21:38)
--- NOTE | 2018-11-23 21:57 | NUR ---
PT SCREAMING IN PAIN, XRAY LAB WAS HERE PLACED THE LEADS UNDERNEATH LEGS AND PT'S BACK, PT SCREAMING IN PAIN, GAVE THE MEDICATION 9 MINS EARLIER
--- NOTE | 2018-11-23 22:00 | NUR ---
HAD A GO SIGNAL FOR PICC LINE NURSE TO USE THE NEWLY INSERTED PICC LINE, TRANSFERRED THE TPN TO THE LEFT UPPER ARM PICC LINE DBL LUMEN
[2018-11-24] VITALS: BP 94/46
[2018-11-24] MEDS: GABAPENTIN 100 MG CAP PO SCH ×4 (00:25→20:31)
[2018-11-24] MEDS: HYDROmorphone PFS 2 MG/ML SYR IVP PRN ×7 (01:23→22:05)
--- NOTE | 2018-11-24 05:00 | NUR ---
TALAT HALL TAKEN, WILL ENDORSE TO NEXT SHIFT; WILL AWAIT RESULT
[2018-11-24 05:25] LABS: MAGNESIUM 1.5 mg/dL (1.8-2.4); PHOSPHORUS 3.6 mg/dL (2.5-4.9); VANCOMYCIN,TROUGH 9.2 ug/ml (5-15)
[2018-11-24 06:36] LABS: CARBON DIOXIDE 22.7 mmol/L (21-32); CREATININE 0.7 mg/dL (0.7-1.3); POTASSIUM 3.7 mmol/L (3.5-5.1)
[2018-11-24 06:49] LABS: BASOPHILS % (AUTO) 0.3 % (0.0-2.0); EOSINOPHILS # (AUTO) 0.3 K/uL (0-0.4); EOSINOPHILS % (AUTO) 1.8 % (0.0-4.0); HEMATOCRIT 20.4 % (36-52); LYMPHOCYTES # (AUTO) 1.6 K/uL (2.0-11.5); LYMPHOCYTES % (AUTO) 11.1 % (20.5-51.1); MEAN CORPUSCULAR HEMOGLOBIN 29 pg (27-31); MEAN CORPUSCULAR HGB CONC 31 g/dL (33-37); MEAN CORPUSCULAR VOLUME 92.1 fL (80-94); MONOCYTES # (AUTO) 1.2 K/uL (0.8-1.0); MONOCYTES % (AUTO) 8.4 % (1.7-9.3); NEUTROPHILS # (AUTO) 11.3 K/uL (1.8-7.7); NEUTROPHILS % (AUTO) 78.4 % (42.2-75.2); PLATELET COUNT (AUTO) 476 K/uL (140-450); RED BLOOD CELL COUNT(AUTO) 2.21 MIL/uL (4.20-6.10); RED CELL DISTRIBUTION WIDTH 15.6 % (11.6-13.7); WHITE BLOOD COUNT (AUTO) 14.5 K/uL (4.8-10.8)
[2018-11-24 06:58] LABS: HEMOGLOBIN 6.4 g/dL (12.0-18.0)
--- NOTE | 2018-11-24 07:00 | NUR ---
CRITICAL RESULT HGB 6.4; HCT 20.4 REPORTED BY LAB; WILL INFORM DOCTOR; WILL INFORM NEXT NURSE
[2018-11-24] MEDS: VANCOMYCIN 500 MG in DEXTROSE 5% 100 ML IV SCH (07:04)
[2018-11-24] MEDS: NACL 0.9% 1,000 ML IV SCH (07:16)
--- NOTE | 2018-11-24 07:51 | NUR ---
CALLED [facility] RE: HCT AND HGB. INFORMED AM NURSE
[2018-11-24 08:00] VITALS: BP 110/58
[2018-11-24] MEDS: BLOOD GLUCOSE MONITORING 1 DEV DEV FS SCH ×2 (09:00→20:45)
[2018-11-24 09:51] LABS: HEMATOCRIT 22.8 % (36-52); HEMOGLOBIN 7.1 g/dL (12.0-18.0)
--- NOTE | 2018-11-24 13:15 | NUR ---
DR MILLER, CASE MANAGEMENT TEAM, NURSING TEAM AT BEDSIDE TO DISCUSS PLAN OF CARE.
[2018-11-24] MEDS ORDERED: POTASSIUM CHLORIDE 10 MEQ TABER PO SCH (13:45)
[2018-11-24] MEDS ORDERED: DULoxetine 30 MG CAPDR PO SCH (13:48)
[2018-11-24] MEDS ORDERED: MAG SULF 2000 MG/WATER PREMIX 50 ML IV SCH (14:00)
--- NOTE | 2018-11-24 15:05 | NUR ---
MOTHER AT BEDSIDE, PT SMILING MORE TALKATIVE NOW.
--- NOTE | 2018-11-24 15:30 | NUR ---
PT ONLY TOLERATED 2 TABS OF K DUR AFTER TAKING ONE TAB AT A TIME OVER 30 MIN. PT STATES HE WILL TRY LATER
[2018-11-24 16:00] VITALS: BP 105/70
--- NOTE | 2018-11-24 17:50 | NUR ---
BLOOD TRANSFUSION STARTED, PT EXPLAINED OF TRANSFUSION REACTION, PT VERBALIZED UNDERSTANDING, BLOOD VERIFIED BY 2 RNS, CONSENT IN CHART.
--- NOTE | 2018-11-24 18:10 | NUR ---
NO S/S OF TRANSFUSION REACTION NOTED, RATE INCREASED TO 120ML/HR, PT SHAWN WELL
[2018-11-24 20:00] VITALS: BP 110/68
--- NOTE | 2018-11-24 20:00 | NUR ---
ASSUMED CARE. RECEIVED ALERT,ORIENTED. AFEBRILE, NOT IN ACUTE DISTRESS. COMPLAINED OF LEG AND BACK PAINS BUT PAIN MEDICATION NOT DUE AT THIS TIME. FIRST OF 2 UNITS PRBC'S INFUSING. NO TRANSFUSION REACTION NOTED. TPN INFUSING AT 70 ML/HR. SMJ5=419% ON ROOM AIR. VS STABLE, WILL CONTINUE TO MONITOR. NEEDS ATTENDED.
[2018-11-24] MEDS: [UNRECOGNIZED DRUG - OTHER] IV SCH ×4 (20:31)
[2018-11-24] MEDS: AMINO ACIDS IV SCH ×4 (20:31)
[2018-11-24] MEDS: DEXTROSE IV SCH ×4 (20:31)
[2018-11-24] MEDS: MULTIVITAMIN IV SCH ×4 (20:31)
--- NOTE | 2018-11-24 20:31 | NUR ---
NEW BAG OF TPN STARTED. DUE MEDICATION GIVEN.
--- NOTE | 2018-11-24 20:45 | NUR ---
FINGERSTICK BLOOD SUGAR CHECK=76. NO INSULIN COVERAGE NEEDED.
--- NOTE | 2018-11-24 20:50 | NUR ---
TRANSFUSION OF FIRST UNIT PRBC COMPLETED. NO REACTION NOTED. VS REMAIN STABLE.
[2018-11-24] MEDS: VANCOMYCIN 750 MG in DEXTROSE 5% 250 ML IV SCH (21:15)
--- NOTE | 2018-11-24 21:15 | NUR ---
VANCOMYCIN 750 MG IVPB GIVEN AFTER FIRST UNIT OF PRBC COMPLETED.
--- NOTE | 2018-11-24 22:05 | NUR ---
DILAUDID 2 MG IVP GIVEN FOR COMPLAINT OF PAIN (/).
--- NOTE | 2018-11-24 23:20 | NUR ---
2ND UNIT OF PRBC STARTED AFTER UNIT VERIFIED WITH APN FAIRY.
[2018-11-25] VITALS: BP 107/55
--- NOTE | 2018-11-25 | NUR ---
RESTING IN BED, NOT IN ANY KIND OF DISTRESS. NO PAIN OR DISCOMFORT NOTED. NO TRANSFUSION REACTION NOTED. SIDE RAILS UP,CALL LIGHT WITHIN REACH. KEPT WARM AND COMFORTABLE. VS REMAIN STABLE. WILL CONTINUE TO MONITOR.
[2018-11-25] MEDS: HYDROmorphone PFS 2 MG/ML SYR IVP PRN ×8 (01:11→22:05)
--- NOTE | 2018-11-25 01:11 | NUR ---
PT.AGAIN COMPLAINED OF PAIN. ANOTHER DOSE OF DILAUDID 2 MG IVP GIVEN ORDERED.
--- NOTE | 2018-11-25 02:00 | NUR ---
TRANSFUSION OF 2ND UNIT PACKED RBC' COMPLETED. NO TRANSFUSION REACTION NOTED.
--- NOTE | 2018-11-25 03:19 | NUR ---
COMPLAINED OF PAIN. PAIN MEDICATION NOT DUE AT THIS TIME.
--- NOTE | 2018-11-25 04:02 | NUR ---
ANOTHER DOSE OF DILAUDID 2 MG IVP GIVEN REQUESTED FOR PAIN.
[2018-11-25] MEDS: GABAPENTIN 100 MG CAP PO SCH ×4 (05:02→21:00)
[2018-11-25] MEDS: VANCOMYCIN 750 MG in DEXTROSE 5% 250 ML IV SCH ×2 (06:00→16:23)
--- NOTE | 2018-11-25 07:04 | NUR ---
ENDORSED CARE TO EDNA RESENDEZ.
--- NOTE | 2018-11-25 07:06 | NUR ---
AGAIN COMPLAINED OF PAIN. MEDICATED WITH DILAUDID 2 MG IVP.
--- NOTE | 2018-11-25 07:07 | NUR ---
RECEIVED REPORT FROM NIGHT RN. PATIENT IS AAOX4, ON ROOM AIR. PATIENT HAS A PICC LINE LEFT UPPER ARM DOUBLE LUMEN AND AN IV TO L AC, SALINE LOCK. TPN IS INFUSING AT 70ML/HR. PT IS FULL CODE WITH MANY ALLERGIES. SKIN IS NON INTACT D/T MULTIPLE GONZALES. NO COMPLAINTS AT THIS TIME, WILL CONTINUE WITH PLAN OF CARE.
[2018-11-25 08:00] VITALS: BP 116/71
--- NOTE | 2018-11-25 08:00 | NUR ---
PATIENT REFUSED TO LET ME LOOK AT COLOSTOMY BAG AND SCREAMED OF PAIN WHEN I ATTEMPTED TO. NOT NOT PURSUE THE MATTER ANY FURTHER.
[2018-11-25] MEDS: BLOOD GLUCOSE MONITORING 1 DEV DEV FS SCH ×2 (09:00→20:58)
[2018-11-25] MEDS: DULoxetine 30 MG CAPDR PO SCH (09:00)
--- NOTE | 2018-11-25 10:15 | NUR ---
ADMINISTERED MORNING CYMBALTA. PATIENTS BLOOD SUGAR WAS 85, NO ACTION NEEDED. ADMINISTERED DILAUDID IVP FOR PAIN 09/18.
--- NOTE | 2018-11-25 12:59 | NUR ---
WENT WITH DIRECTOR CHANTELLE TO ATTEMPT AND WEIGH PATIENT. PATIENT REFUSED AND TOLD US HE DIDN'T WANT US NEAR THE FOOT OF THE BED NEAR HIS FEET BECAUSE THEY HURT.
[2018-11-25 16:00] VITALS: BP 127/75
--- NOTE | 2018-11-25 16:24 | NUR ---
ADMINISTERED IVP DILAUDID FOR PAIN 11/18. WILL REASSESS.
--- NOTE | 2018-11-25 19:05 | NUR ---
ADMINISTERED PAIN MEDICATION FOR PAIN 11/18. INTERNAL GRINDING MACHINE OPERATOR RN WILL DO RE ASSESSMENT. WILL ENDORSE TO INTERNAL GRINDING MACHINE OPERATOR. PT IN STABLE CONDITION
--- NOTE | 2018-11-25 19:06 | NUR ---
REPORT RECEIVED FROM AM NURSE AT BEDSIDE. PT IN STABLE CONDITION. AAOX4. INTRODUCED SELF TO PT. BOARD UPDATED. PT HAS COMPLAINTS OF PAIN. ALREADY MEDICATED. NO SOB. AFEBRILE. BEDBOUND. PT HAS COLOSTOMY. IV SITE L UA PICC DOUBLE LUMEN RUNNING SL PATENT AND INTACT. SKIN WARM, DRY, AND NOT INTACT DUE TO MULTIPLE WOUNDS. PT DOES NOT ALLOW TO BE MOVED. BED LOCKED IN LOW POSITION. CALL CONN WITHIN REACH. SAFETY PRECAUTION IN PLACE. ALL NEEDS MET AT THIS TIME.
--- NOTE | 2018-11-25 19:55 | NUR ---
CALLED DR MILLER REGARDING ZOFRAN ORDER RENEWAL. APPROVED FOR ZOFRAN 4MG IVP Q4H PRN FOR NAUSEA/VOMITING. TORB.
[2018-11-25] MEDS: AMINO ACIDS IV SCH ×4 (20:07)
[2018-11-25] MEDS: MULTIVITAMIN IV SCH ×4 (20:07)
[2018-11-25] MEDS: [UNRECOGNIZED DRUG - OTHER] IV SCH ×4 (20:07)
[2018-11-25] MEDS: DEXTROSE IV SCH ×4 (20:07)
--- NOTE | 2018-11-25 20:08 | NUR ---
DEACON PARRISH AND RUNNING. NEURONTIN GIVEN PO. PT TOLERATED WELL. Addendum: 11/26/18 at 0502 by Migue Newsome RN PATIENT REFUSED NEURONTIN.
[2018-11-25] MEDS ORDERED: HYDROmorphone 1 MG/ML AMP IVP ONE (20:35)
--- NOTE | 2018-11-25 20:54 | NUR ---
DR CAICEDO IN TO SEE PATIENT'S WOUNDS. PT IN INSURMOUNTABLE PAIN. MD NOTIFIED. ORDERED 1MG DILAUDID IVP ONCE FOR BREAKTHROUGH PAIN. PT TOLERATED WELL.
[2018-11-25] MEDS: fentaNYL 0.1 MG/HR PATCH TD SCH (21:18)
--- NOTE | 2018-11-25 21:18 | NUR ---
FENTANYL PUT ON LEFT SHOULDER. BS 101. NO INSULIN COVERAGE NEEDED.
--- NOTE | 2018-11-25 22:05 | NUR ---
DILAUDID GIVEN FOR 10/10 PAIN. PT TOLERATED WELL.
[2018-11-26] VITALS: BP 107/68
[2018-11-26] MEDS: HYDROmorphone PFS 2 MG/ML SYR IVP PRN ×7 (01:00→21:27)
--- NOTE | 2018-11-26 01:00 | NUR ---
DILAUDID GIVEN FOR 10/10 PAIN. PT TOLERATED WELL.
--- NOTE | 2018-11-26 03:54 | NUR ---
DILAUDID GIVEN FOR 10/10 PAIN. PT TOLERATED WELL.
[2018-11-26] MEDS: GABAPENTIN 100 MG CAP PO SCH ×4 (05:00→21:26)
--- NOTE | 2018-11-26 05:01 | NUR ---
PATIENT REFUSED NEURONTIN.
[2018-11-26 06:18] LABS: MAGNESIUM 3.1 mg/dL (1.8-2.4); PHOSPHORUS 3.9 mg/dL (2.5-4.9); VANCOMYCIN,TROUGH 9.7 ug/ml (5-15)
--- NOTE | 2018-11-26 06:45 | NUR ---
DILAUDID GIVEN FOR 10/10 PAIN. PT TOLERATED WELL.
--- NOTE | 2018-11-26 07:00 | NUR ---
LAB CALLED IN FOR BS OF 830. RECHECKED BS WAS 92. CALLED LAB THEY SAID THEY WILL REDRAW FOR BS.
--- NOTE | 2018-11-26 07:10 | NUR ---
REPORT RECEIVED FROM INTERNET TECHNOLOGY MANAGER NURSE AT BEDSIDE FOR CONTINUITY OF CARE. PT IN STABLE CONDITION. AAOX4. INTRODUCED SELF TO PT. BOARD UPDATED. PT HAS COMPLAINTS OF PAIN. ALREADY MEDICATED BY PM NURSE AT 0646, PATIETN AWARE OF NEXT SCHEDULE. NO SOB OR DISTRESS ON ROOM AIR. BEDBOUND. PT HAS COLOSTOMY. PATIENT HAS L UA PICC LINE RUNNING TPN WELL, DRESSING INTACT. SKIN WARM, DRY, AND NOT INTACT DUE TO MULTIPLE WOUNDS AND BURN. PT REFUSED TO BE REPOSITIONED D/T PAIN. PATIENT ON WOUND MATTRESS. PATIENT ON ISOLATION PRECAUTIONS, SAFETY AND ISOLATION PRECAUTIONS IN PLACE, CALL LIGHT WITHIN REACH, BED IN LOWEST POSITION WITH ALARM ON, WILL CONTINUE TO MONITOR PATIENT.
[2018-11-26 08:00] VITALS: BP 136/76
[2018-11-26] MEDS: DULoxetine 30 MG CAPDR PO SCH (09:00)
--- NOTE | 2018-11-26 09:00 | NUR ---
0900 MEDICATIONS NOT GIVEN BECAUSE PATIENT IS NPO FOR PROCEDURE WITH DR. CAICEDO. NO SCHEDULE UP YET. PATIENT AWARE OF NEXT SCHEDULE MEDICATION BUT C/O 11/18 PAIN. ASKED TO PAGE DR. GREEN FOR A ONE TIME DOSE. PAGED DR. GREEN, DR MILLER FIELD ARTILLERY TARGETING TECHNICIAN, WILL WAIT FOR HIS CALL BACK. PATIENT AWARE.
[2018-11-26 09:16] LABS: ANION GAP 11.4 (8-16); CARBON DIOXIDE 23.4 mmol/L (21-32); CREATININE 0.6 mg/dL (0.7-1.3); POTASSIUM 3.8 mmol/L (3.5-5.1)
--- NOTE | 2018-11-26 09:38 | NUR ---
PATIENT MEDICATED WITH PRN DILAUDID FOR 10/10 CHRONIC PAIN REQUESTED. PATIENT TOLERATED IT WELL. NO COMPLAINTS AT THIS TIME. STILL NO TIME KNOWN FOR PROCEDURE WITH DR. CAICEDO. WILL UPDATED PATIENT ONCE KNOWN. SAFETY AND ISOLATION PRECAUTIONS IN PLACE, CALL LIGHT WITHIN REACH. WILL CONTINUE TO MONITOR PATIENT.
[2018-11-26] MEDS: BLOOD GLUCOSE MONITORING 1 DEV DEV FS SCH ×2 (10:45→21:46)
[2018-11-26] MEDS: VANCOMYCIN 1,250 MG in DEXTROSE 5% 250 ML IV SCH ×2 (10:46→23:16)
--- NOTE | 2018-11-26 12:37 | NUR ---
PATIENT MEDICATED WITH PRN DILAUDID FOR 10/10 CHRONIC PAIN REQUESTED. PATIENT TOLERATED IT WELL. NO COMPLAINTS AT THIS TIME. UPDATED PATIENT WITH PROCEDURE TIME OF 1505. HE VERBALIZED UNDERSTANDING. SAFETY AND ISOLATION PRECAUTIONS IN PLACE, CALL LIGHT WITHIN REACH. WILL CONTINUE TO MONITOR PATIENT.
[2018-11-26] MEDS ORDERED: HYDROmorphone PFS 2 MG/ML SYR IVP ONE (15:20)
--- NOTE | 2018-11-26 15:40 | NUR ---
PATIENT WHEELED OFF FLOOR WITH OR NURSES TO GO TO PROCEDURE WITH DR. CAICEDO. PATIENT IN STABLE CONDITION.
--- NOTE | 2018-11-26 16:00 | NUR ---
1600 VS NOT TAKEN. PATIENT CURRENTLY IN PROCEDURE WITH DR. CAICEDO. WILL WAIT FOR PATIENT TO COME BACK.
[2018-11-26 16:09] LABS: BASOPHILS % (AUTO) 0.3 % (0.0-2.0); EOSINOPHILS # (AUTO) 0.4 K/uL (0-0.4); EOSINOPHILS % (AUTO) 2.7 % (0.0-4.0); HEMATOCRIT 25.3 % (36-52); HEMOGLOBIN 8.3 g/dL (12.0-18.0); LYMPHOCYTES # (AUTO) 1.5 K/uL (2.0-11.5); LYMPHOCYTES % (AUTO) 10.9 % (20.5-51.1); MEAN CORPUSCULAR HEMOGLOBIN 30 pg (27-31); MEAN CORPUSCULAR HGB CONC 33 g/dL (33-37); MEAN CORPUSCULAR VOLUME 91.1 fL (80-94); MONOCYTES % (AUTO) 7.4 % (1.7-9.3); NEUTROPHILS # (AUTO) 10.8 K/uL (1.8-7.7); NEUTROPHILS % (AUTO) 78.7 % (42.2-75.2); PLATELET COUNT (AUTO) 474 K/uL (140-450); RED BLOOD CELL COUNT(AUTO) 2.77 MIL/uL (4.20-6.10); WHITE BLOOD COUNT (AUTO) 13.8 K/uL (4.8-10.8)
[2018-11-26] MEDS ORDERED: LABETALOL 20 MG/4 ML VIAL IVP ONE (16:31)
[2018-11-26] MEDS ORDERED: KETAMINE 500 MG/5 ML VIAL ONE (16:37)
[2018-11-26] MEDS ORDERED: MIDAZOLAM 2 MG/2 ML VIAL ONE (16:37)
[2018-11-26] MEDS ORDERED: ONDANSETRON 4 MG/2 ML VIAL IVP PRN (16:50)
[2018-11-26] MEDS ORDERED: HYDROmorphone PFS 2 MG/ML SYR ONE (17:08)
[2018-11-26] MEDS: HYDROmorphone 1 MG/ML AMP IVP PRN ×4 (17:10→17:40)
--- NOTE | 2018-11-26 17:20 | NUR ---
JOSE RAFAEL MEDICAL SECRETARY TEACHER, CALLED. PATIENT WEIGHT TAKEN IN OR. PATIENT'S CURRENT WAIT PER GÉNESIS MANTILLA, IS 128.6 LBS.
[2018-11-26 18:10] VITALS: BP 134/70
--- NOTE | 2018-11-26 18:10 | NUR ---
PATIENT WHEELED BACK ON THE FLOOR. PATIENT IN STABLE CONDITION. MEDICATED FOR PAIN IN PACU. WILL CONTINUE TO MONITOR PATIENT.
--- NOTE | 2018-11-26 18:47 | NUR ---
PATIENT CRYING, YELLING, MOANING, AND RESTLESS. PATIENT MEDICATED WITH PRN DILAUDID FOR 10/10 CHRONIC PAIN REQUESTED. PATIENT TOLERATED IT WELL. NO COMPLAINTS AT THIS TIME. FAMILY AT BEDSIDE. SAFETY AND ISOLATION PRECAUTIONS IN PLACE, CALL LIGHT WITHIN REACH. WILL CONTINUE TO MONITOR PATIENT.
--- NOTE | 2018-11-26 19:30 | NUR ---
REPORT GIVEN TO COUNSELOR SUPERVISOR NURSE AT BEDSIDE FOR CONTINUITY OF CARE. PATIENT STABLE, FAMILY AT BEDSIDE. ENDORSED PAIN REASSESSMENT TO COUNSELOR SUPERVISOR NURSE.
--- NOTE | 2018-11-26 19:31 | NUR ---
RECEIVED PT IN STABLE CONDITION FROM AM NURSE. MED SURG PT. AWAKE,ALERT AND ORIENTED X4. WITH FAMILY AT BEDSIDE. HAS IVF INFUSING WELL ON THE LT UPPER PICC LINE, TRIPLE LUMEN. BEDBOUND. WITH MULTIPLE GONZALES ON THE LOWER EXTREMITIES. DRESSING IN PLACED. PLAN OF CARE DISCUSSED AND VERBALIZED UNDERSTANDING. BUT WITH PAIN MANAGEMENT, PT NEED REINFORCEMENT. BED ON LOW POSITION, SIDE RAILS UP X2. CALL LIGHT WITHIN EASY REACH. WILL CONTINUE TO MONITOR.
[2018-11-26] MEDS: DEXTROSE IV SCH ×4 (19:54)
[2018-11-26] MEDS: [UNRECOGNIZED DRUG - OTHER] IV SCH ×4 (19:54)
[2018-11-26] MEDS: AMINO ACIDS IV SCH ×4 (19:54)
[2018-11-26] MEDS: MULTIVITAMIN IV SCH ×4 (19:54)
--- NOTE | 2018-11-26 21:27 | NUR ---
C/O SEVERE PAIN ON THE BURN AREAS. MEDICATED ORDERED. WILL CONTINUE TO MONITOR.
--- NOTE | 2018-11-26 21:47 | NUR ---
BLOOD SUGAR WAS CHECKED RESULT 107. NO INSULIN NEEDED.
[2018-11-26] MEDS ORDERED: ALTEPLASE 2 MG VIAL MC SCH (23:45)
--- NOTE | 2018-11-26 23:45 | NUR ---
PAGED DR. GREEN FOR ONE PORT OF THE PICC LINE IS CLOTTED. CALLED BACK WITH ORDER.
[2018-11-26 23:58] VITALS: BP 131/70
[2018-11-27] MEDS ORDERED: WATER STERILE 10 ML MC ONE (00:07)
[2018-11-27] MEDS: HYDROmorphone PFS 2 MG/ML SYR IVP PRN ×8 (00:53→21:10)
--- NOTE | 2018-11-27 02:15 | NUR ---
ABLE TO DECLOT ONE PORT OF THE PICC LINE AFTER THE CATHFLO ACTIVASE WAS INTRODUCED TO THE LINE. IV ACCESS WILL BE USED FOR ANTIBIOTICS.
--- NOTE | 2018-11-27 04:37 | NUR ---
PT QUITE IN BED. BUT STILL WITH SOME PAIN WILL CONTINUE TO MONITOR.
[2018-11-27] MEDS: GABAPENTIN 100 MG CAP PO SCH ×3 (05:00→21:00)
--- NOTE | 2018-11-27 07:21 | NUR ---
ENDORSED PT IN STABLE CONDITION TO AM NURSE FOR CONTINUITY OF CARE.
--- NOTE | 2018-11-27 07:22 | NUR ---
REPORT RECEIVED FROM ELDERLY SITTER NURSE AT BEDSIDE FOR CONTINUITY OF CARE. PT IN STABLE CONDITION. AAOX4. INTRODUCED SELF TO PT. BOARD UPDATED. PT HAS COMPLAINTS OF PAIN, MOANING AND FACIAL GRIMACING. ALREADY MEDICATED BY PM NURSE AT 0619, PATIENT AWARE OF NEXT SCHEDULE. NO SOB OR DISTRESS ON ROOM AIR. BEDBOUND. PT HAS COLOSTOMY. PATIENT HAS L UA PICC LINE RUNNING TPN WELL, DRESSING INTACT. SKIN WARM, DRY, AND NOT INTACT DUE TO MULTIPLE WOUNDS AND BURN. PT REFUSED TO BE REPOSITIONED D/T PAIN. PATIENT ON WOUND MATTRESS. PATIENT ON ISOLATION PRECAUTIONS, SAFETY AND ISOLATION PRECAUTIONS IN PLACE, CALL LIGHT WITHIN REACH, BED IN LOWEST POSITION WITH ALARM ON, WILL CONTINUE TO MONITOR PATIENT.
[2018-11-27 07:39] LABS: BASOPHILS % (AUTO) 0.2 % (0.0-2.0); EOSINOPHILS # (AUTO) 0.1 K/uL (0-0.4); EOSINOPHILS % (AUTO) 0.6 % (0.0-4.0); HEMATOCRIT 28.4 % (36-52); LYMPHOCYTES # (AUTO) 1.6 K/uL (2.0-11.5); LYMPHOCYTES % (AUTO) 12.2 % (20.5-51.1); MEAN CORPUSCULAR HEMOGLOBIN 29 pg (27-31); MEAN CORPUSCULAR HGB CONC 32 g/dL (33-37); MEAN CORPUSCULAR VOLUME 92.5 fL (80-94); MONOCYTES # (AUTO) 1.4 K/uL (0.8-1.0); MONOCYTES % (AUTO) 10.9 % (1.7-9.3); NEUTROPHILS # (AUTO) 9.9 K/uL (1.8-7.7); NEUTROPHILS % (AUTO) 76.1 % (42.2-75.2); PLATELET COUNT (AUTO) 484 K/uL (140-450); RED BLOOD CELL COUNT(AUTO) 3.07 MIL/uL (4.20-6.10); RED CELL DISTRIBUTION WIDTH 15.4 % (11.6-13.7)
[2018-11-27 07:49] VITALS: BP 147/76
--- NOTE | 2018-11-27 08:45 | NUR ---
PATIENT MOANING, CRYING, RESTLESS COMPLAINING OF 10/10 CHRONIC BODY PAIN. REMINDED PATIENT OF NEXT SCHEDULED DOSE. HE VERBALIZED UNDERSTANDING. SAFETY AND ISOLATION PRECAUTIONS IN PLACE, CALL LIGHT WITHIN REACH, WILL CONTINUE TO MONITOR PATIENT.
[2018-11-27] MEDS: DULoxetine 30 MG CAPDR PO SCH (09:00)
[2018-11-27] MEDS: LACTOBACILLUS RHAMNOSUS GG 1 EACH CAP PO SCH (09:00)
--- NOTE | 2018-11-27 09:07 | NUR ---
PATIENT MEDICATED WITH PRN DILAUDID FOR 10 CHRONIC PAIN REQUESTED. PATIENT TOLERATED IT. NO COMPLAINTS AT THIS TIME. NEXT SCHEDULED MED WRITTEN ON BOARD. PATIENT REFUSED 0900 MEDICATIONS D/T COMPLAINT OF NAUSEA. OFFERED PATIENT JESSICA, HE REFUSED. SAFETY AND ISOLATION PRECAUTIONS IN PLACE, CALL LIGHT WITHIN REACH. WILL CONTINUE TO MONITOR PATIENT.
--- NOTE | 2018-11-27 10:09 | NUR ---
MAG LEVEL 1.5. PAGED DR. GREEN TO INFORM HIM. DR. WISEMAN ORACLE WMS CONSULTANT. DR. WISEMAN CALLED BACK. NEW ORDER IN FOR 2GM MAG RIDER. RN VERBALIZED UNDERSTANDING. ORDER NOTED AND WILL BE CARRIED OUT.
[2018-11-27] MEDS: VANCOMYCIN 1,250 MG in DEXTROSE 5% 250 ML IV SCH ×2 (10:14→22:59)
[2018-11-27] MEDS: BLOOD GLUCOSE MONITORING 1 DEV DEV FS SCH ×2 (10:15→21:20)
--- NOTE | 2018-11-27 10:15 | NUR ---
ORDERED ANTIBIOTICS GIVEN. BLOOD SUGAR 97. PATIENT TOLERATED IT. PATIENT RESTING IN BED, FACIAL GRIMACING, AWARE OF NEXT SCHEDULED DOSE OF PAIN MEDICATION. SAFETY AND ISOLATION PRECAUTIONS IN PLACE, CALL LIGHT WITHIN REACH. WILL CONTINUE TO MONITOR PATIENT.
[2018-11-27] MEDS ORDERED: MAG SULF 2000 MG/WATER PREMIX 50 ML IV SCH (12:00)
--- NOTE | 2018-11-27 12:08 | NUR ---
PATIENT C/O SEVERE PAIN ON THE BURN AREAS, MOANING, CRYING, AND RESTLESS. MEDICATED WITH PRN DILAUDID ORDERED. WILL CONTINUE TO MONITOR PATIENT.
--- NOTE | 2018-11-27 15:05 | NUR ---
PATIENT C/O SEVERE PAIN ON THE BURN AREAS. MEDICATED WITH PRN DILAUDID ORDERED. WILL CONTINUE TO MONITOR PATIENT.
[2018-11-27 16:00] VITALS: BP 122/77
--- NOTE | 2018-11-27 18:05 | NUR ---
PATIENT C/O SEVERE PAIN ON THE BURN AREAS. MEDICATED WITH PRN DILAUDID ORDERED. ALL NEEDS MET AT THIS TIME. WILL CONTINUE TO MONITOR PATIENT AND ENDORSE TO DREDGE OPERATOR SUPERVISOR NURSE.
--- NOTE | 2018-11-27 19:15 | NUR ---
REPORT GIVEN TO PLANT INSPECTOR NURSE. PATIENT IN STABLE CONDITION AND AWARE OF NEXT DOSE OF PAIN MEDICATION.
--- NOTE | 2018-11-27 19:20 | NUR ---
RECEIVED BEDSIDE REPORT FROM AM SHIFT RN FOR PT'S CONTINUITY OF CARE. PT IS AAOX4, LYING DOWN, WATCHING TV, IS ON ROOM AIR, HAS LEFT UA DOUBLE LUMEN PICC LINE, AND LEFT FA 22G SALINE LOCK. 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 WILL MONITOR PT THROUGHOUT SHIFT.
[2018-11-27] MEDS: DEXTROSE IV SCH ×4 (20:09)
[2018-11-27] MEDS: [UNRECOGNIZED DRUG - OTHER] IV SCH ×4 (20:09)
[2018-11-27] MEDS: AMINO ACIDS IV SCH ×4 (20:09)
[2018-11-27] MEDS: MULTIVITAMIN IV SCH ×4 (20:09)
--- NOTE | 2018-11-27 20:09 | NUR ---
ADMINISTERED SCHEDULED TPN CONTINUOUS DRIP ORDERED. PT REFUSED SCHEDULED PO MEDICATION. WILL CONTINUE TO MONITOR PT.
--- NOTE | 2018-11-27 21:10 | NUR ---
PT C/O PAIN 10/19, ADMINISTERED IV PUSH PAIN MEDICATION ORDERED. BLOOD SUGAR CHECKED AND CHARTED. NO COVERAGE NEEDED. PT TEACHING GIVEN ABOUT PAIN MEDICATION AND ABOUT REFUSED SCHEDULED PO MEDICATION. PT STATED HE CAN'T SWALLOW CAPSULES AND ENDS UP VOMITING IT OUT. WILL CONTINUE TO MONITOR PT.
[2018-11-28] VITALS: BP 119/72
--- NOTE | 2018-11-28 00:10 | NUR ---
ADMINISTERED IV ABX ORDERED. PT C/O PAIN 10/19, FACIAL GRIMMACING AND MOANING NOTED. ADMINISTERED PRN IV PUSH PAIN MEDICATION ORDERED. VS CHECKED AND CHARTED. ENCOURAGED PT TO TAKE MORE FLUID AND FOOD INTAKE. WILL CONTINUE TO MONITOR PT.
[2018-11-28] MEDS: HYDROmorphone PFS 2 MG/ML SYR IVP PRN ×8 (00:11→22:07)
--- NOTE | 2018-11-28 01:51 | NUR ---
PT NOTED SCREAMING, YELLING AND CRYING. PT ASKING FOR HELP. WENT INSIDE ROOM AND ASKED FOR ANY ALTERNATE WAYS TO HELP WITH PAIN. OFFERED REPOSITIONING BUT PT REFUSED, STATED IT WON'T HELP. ENCOURAGED TO DO BREATHING EXERCISES. REMINDED PT THAT PAIN MEDICATION IS NOT DUE UNTIL 309, PT VERBALIZED UNDERSTANDING. WILL CONTINUE TO MONITOR PT.
--- NOTE | 2018-11-28 02:30 | NUR ---
PT STOPPED SCREAMING AND YELLING. WILL CONTINUE TO MONITOR PT.
--- NOTE | 2018-11-28 03:10 | NUR ---
PT CRYING, SCREAMING, YELLING, MOANING, DT SEVERE PAIN. ADMINISTERED PRN IV PUSH PAIN MEDICATION ORDERED. PT REFUSED TO BE REPOSITIONED. OR USE ALTERNATIVE METHODS TO RELIEVE PAIN. WILL CONTINUE TO MONITOR PT.
[2018-11-28] MEDS: GABAPENTIN 100 MG CAP PO SCH ×3 (06:00→21:00)
--- NOTE | 2018-11-28 06:13 | NUR ---
PT C/O SEVERE PAIN. ADMINISTERED PRN IV PUSH PAIN MEDICATION ORDERED. PT REFUSED SCHEDULED PO MEDICATION. PT TEACHING GIVEN. STILL REFUSED MED. ENCOURAGED PT TO INCREASE FLUID AND PO INTAKE DT LOW BLOOD GLUCOSE. PT NODDED IN AGREEMENT. WILL ENDORSE TO AM SHIFT RN FOR PT'S CONTINUITY OF CARE.
--- NOTE | 2018-11-28 07:30 | NUR ---
Received report from [facility] shift lead nurse. Pt lying in bed with no signs of distress. Call light in reach.
[2018-11-28 07:48] LABS: ANION GAP 12.4 (8-16); CARBON DIOXIDE 24.4 mmol/L (21-32); CREATININE 0.6 mg/dL (0.7-1.3); POTASSIUM 3.8 mmol/L (3.5-5.1)
[2018-11-28 07:54] LABS: MAGNESIUM 1.8 mg/dL (1.8-2.4); PHOSPHORUS 4.5 mg/dL (2.5-4.9)
[2018-11-28 08:00] VITALS: BP 110/52
[2018-11-28] MEDS: DULoxetine 30 MG CAPDR PO SCH (08:54)
[2018-11-28] MEDS: LACTOBACILLUS RHAMNOSUS GG 1 EACH CAP PO SCH (08:54)
--- NOTE | 2018-11-28 08:57 | NUR ---
Pt refused AM medication. Explained risks and benefits of taking and not taking medications. Pt said that he wants to be left alone ant be troubled for another hour. Pt also mentioned that he is not feeling well but did not want to explain further. Pt is resting in bed, no distress noted. Vital signs stable.
[2018-11-28] MEDS: BLOOD GLUCOSE MONITORING 1 DEV DEV FS SCH ×2 (09:58→21:00)
--- NOTE | 2018-11-28 10:27 | NUR ---
Pt is lying in bed and resting. Repositioned. No complains of pain. Call light in reach.
--- NOTE | 2018-11-28 11:15 | NUR ---
Received call from [facility]. Reported Vancomycin trough at 23.6 Pharmacy to hold off meds for today.
--- NOTE | 2018-11-28 14:00 | NUR ---
Pt is in bed. No complains of pain. mother by bedside. Darian light in reach
[2018-11-28 16:00] VITALS: BP 113/64
--- NOTE | 2018-11-28 16:00 | NUR ---
Pt is in bed. No complains of pain. Mother by bedside. Darian light in reach
--- NOTE | 2018-11-28 18:00 | NUR ---
Pt is in bed. No complains of pain. Mother by bedside. Call light in reach.
--- NOTE | 2018-11-28 19:26 | NUR ---
RECEIVED BEDSIDE REPORT FROM AM SHIFT GÉNESIS REED/BEVERLEY, FOR PT'S CONTINUITY OF CARE. PT IS AWAKE, RECEIVED PAIN MEDICATION AT 1859, AAOX4, IS ON ROOM AIR, HAS LEFT UA PICC LINE, AND LEFT FA/AC 22G SALINE LOCK. SAFETY MEASURES IN PLACE, CALL LIGHT IS WITHIN REACH. WILL MONITOR PT THROUGHOUT SHIFT.
--- NOTE | 2018-11-28 19:26 | NUR ---
Shift report given to night nurse. Pt is in bed. Mother by bedside. No signs of distress. Call light in reach
[2018-11-28] MEDS: [UNRECOGNIZED DRUG - OTHER] IV SCH ×4 (19:55)
[2018-11-28] MEDS: AMINO ACIDS IV SCH ×4 (19:55)
[2018-11-28] MEDS: DEXTROSE IV SCH ×4 (19:55)
[2018-11-28] MEDS: MULTIVITAMIN IV SCH ×4 (19:55)
--- NOTE | 2018-11-28 19:55 | NUR ---
ADMINISTERED SCHEDULED TPN ORDERED. PT AWAKE, NO COMPLAINS OF PAIN AT THIS TIME. Addendum: 11/28/18 at 2329 by Sharri Babcock RN ADDITIONAL INFO: PT REQUESTED FOR BLOOD GLUCOSE CHECK DONE WHEN NEXT PAIN MEDICATION DUE. PT TEACHING GIVEN RE: SCHEDULED MEDS. PT AGREED TO TRY AND TAKE THE SCHEDULED PO MED.
[2018-11-28] MEDS: fentaNYL 0.1 MG/HR PATCH TD SCH (22:00)
--- NOTE | 2018-11-28 22:07 | NUR ---
ADMINISTERED PRN IV PUSH PAIN MEDICATION, AND SCHEDULED TD PATCH. PT REFUSED THE PO MEDICATIONS. PT TEACHING GIVEN. PT STILL REFUSED. BP 113/68 P 97 O2 100%. WILL CONTINUE TO MONITOR PT.
[2018-11-29] VITALS: BP 100/64
[2018-11-29] MEDS: HYDROmorphone PFS 2 MG/ML SYR IVP PRN ×8 (01:07→22:49)
--- NOTE | 2018-11-29 01:07 | NUR ---
PT C/O SEVERE PAIN. ADMINISTERED PRN IV PUSH PAIN MEDICATION ORDERED. VS CHECKED AND CHARTED. PT REFUSED TO BE REPOSITIONED AND PHOTOGRAPHED. PT TEACHING GIVEN. MOTHER AT BEDSIDE. ENCOURAGED PT TO INCREASE FLUID AND FOOD INTAKE. WILL CONTINUE TO MONITOR PT.
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
[2018-11-29] MEDS: GABAPENTIN 100 MG CAP PO SCH ×3 (05:00→21:00)
--- NOTE | 2018-11-29 07:23 | NUR ---
PT C/O SEVERE PAIN. ADMINISTERED PRN IV PUSH MEDICATION ORDERED. NO OTHER THINGS NEEDED. WILL ENDORSE TO AM SHIFT RN FOR PT'S CONTINUITY OF CARE.
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
[2018-11-29 07:33] LABS: ALBUMIN 1.4 g/dL (3.4-5.0); ANION GAP 12.5 (8-16); CARBON DIOXIDE 25.4 mmol/L (21-32); CREATININE 0.7 mg/dL (0.7-1.3); MAGNESIUM 1.8 mg/dL (1.8-2.4); PHOSPHORUS 5.3 mg/dL (2.5-4.9); POTASSIUM 3.9 mmol/L (3.5-5.1)
[2018-11-29 07:38] LABS: CHOL/HDL RATIO 5.4 (1-4.5)
[2018-11-29 08:00] VITALS: BP 110/61
[2018-11-29 08:00] LABS: TOTAL BILIRUBIN 0.1 mg/dL (0.0-1.0)
[2018-11-29] MEDS: DULoxetine 30 MG CAPDR PO SCH (09:00)
[2018-11-29] MEDS: BLOOD GLUCOSE MONITORING 1 DEV DEV FS SCH ×2 (09:00→23:00)
[2018-11-29] MEDS: LACTOBACILLUS RHAMNOSUS GG 1 EACH CAP PO SCH (09:00)
--- NOTE | 2018-11-29 09:30 | NUR ---
PATIENT REFUSES TO BE TURNED, MD AWARE. WILL CONTINUE TO MONITOR.
[2018-11-29] MEDS: VANCOMYCIN 500 MG in DEXTROSE 5% 100 ML IV SCH ×2 (09:41→17:57)
--- NOTE | 2018-11-29 10:30 | NUR ---
PATIENT COMPLAINING OF GENERALIZED PAIN. DILAUDID GIVEN AT THIS TIME. WILL CONTINUE TO MONITOR.
--- NOTE | 2018-11-29 11:14 | NUR ---
Fiorella wound care nurse and me talk to the patient regarding the plan for his wound care, Dr. Wilson mentioned to me last week that he is planning to endorsed wound care to nurses, per patient he is not willing for nurses to do his wound care at this time, patient doesnt want wound care eval today, he is also refusing to transfer to another bed to properly zero the bed for accurate weight of the patient, latest weight 122lbs. Addendum: 11/29/18 at 1132 by Leonor Prieto RN UNABLE TO SEE WOUND AT THIS TIME, PATIENT CRIES WHEN IM ABOUT TO LIFT THE SHEET ON HIS LEGS,
--- NOTE | 2018-11-29 11:14 | NUR ---
VISITED PT. WITH [facility] DIRECT[facility], PT. IS AAX4, EXPLAIN TO PT. NEED TO CHECK FOR CURRENT WEIGHT. REMOVE EQUIPMENT OFF BED, ZERO AND SCALE WITH READING 122LBS, PER PT. HE REMEMBER HIS ADMISSION WEIGHT WAS 118LB. OFFER PT. FOR WOUND ASSESSMENT AND DISCUSSED WITH PT. WOUND CARE BY NURSING. PT. REFUSED AND PER PT. REQUEST HE WOULD LIKE TO DISCUSS WITH DR. CAICEDO FOR WOUND CARE PLAN, PAIN CONTROL ISSUE AND OTHER CARE ISSUES WITH HIS MOTHER'S PRESENT. [facility] DIRECTOR AT BED SIDE AND AGREE TO IT, SHE WILL ARRANGE THE FOLLOW UP PLAN. Addendum: 12/01/18 at 1514 by Wilber Valencia RN (Grace) Spoke to Lynne Benavidez, [employer] [facility] Wound Test Car Driverhealth care liaison option discussed. [facility] director and leather case finisher Rakel notified of her recommendations 1.Pain control: Nerve Block 2.Flow study to legs to rule out PAD: What if it is the PAD that cause the uncontrolled pain,(Revascularization or Amputation will be the plan if that is the case) 3.Post graft wound care should be surgeon to follow up which we are doing now.
--- NOTE | 2018-11-29 13:00 | NUR ---
PATIENT REFUSES TO BE TURNED AND REFUSES WOUND EVALUATION. WILL CONTINUE TO MONITOR.
--- NOTE | 2018-11-29 13:33 | NUR ---
PATIENT COMPLAINS OF GENERALIZED PAIN, DILAUDID GIVEN AT THIS TIME. REFUSED SCHEDULED GABAPENTIN. WILL CONTINUE TO MONITOR.
--- NOTE | 2018-11-29 15:14 | NUR ---
11/29/18 RD FOLLOW UP COMPLETED PLEASE REFER TO NUTRITION ASSESSMENT UNDER CARE ACTIVITY FOR ESTIMATED NUTRITIONAL NEEDS. 1. RECOMMEND INCREASING TPN INFUSION WHEN MEDICALLY APPROPRIATE TO MEET 75% OF ESTIMATED NEEDS 2. CONTINUE REGULAR DIET TOLERATED WITH SUPPLEMENTS AND FOOD BROUGHT FROM HOME IF APPROPRIATE PER MD. 3. ENCOURAGE INCREASING PO INTAKE TO AT LEAST 1250 KCAL/DAY AND 40 GM OF PROTEIN/DAY 4. RD WILL FOLLOW UP 2-3 DAYS, HIGH RISK ALEXEI JOHNSTON RD
[2018-11-29] MEDS ORDERED: VANCOMYCIN PER PHARMACY MC PRN (15:25)
[2018-11-29 16:00] VITALS: BP 113/69
--- NOTE | 2018-11-29 16:00 | NUR ---
SPOKE WITH THE PATIENT REGARDING TO TRY THE DRESSING CHANGE AT THE BED SIDE WITH THE WOUND NURSE, PT SOMEWHAT HESITATED AND STATED " I DID TRY IT BEFORE AND DIDN'T WORK ,BUT IF YOU INSIST WE CAN TRY " SCHEDULE THE DRESSING CHANGE FOR THURSDAY CM TO FOLLOW Addendum: 12/20/18 at 1443 by Rakel Almeida CM DC PLANNING : TELEPHONE CALL CONFERENCE WITH [facility] MEDICAL INDUSTRIAL GARAGE SERVICER BY DR JONES AND DR AMY CAICEDO, MILE KENDALL NURSING EDUCATOR , COURTNEY (DIRECTOR DATABASE), [facility], MYSELF AND PT'S MOTHER JULIAN , DISCUSSED THE PATIENT CONDITION, PROGRESS, PAIN MANAGEMENT AND DC PLANNING WITH APPROPRIATE CARE FOR THE PATIENT.ALL THE CONCERN AND DC PLAN DISCUSSED WITH THE MOTHER, AND MOTHER AGREED WITH THE PLAN. CM TO FOLLOW UP Addendum: 12/20/18 at 1507 by Rakel Almeida CM DC PLANNING : TELEPHONE CALL CONFERENCE WITH [facility] MEDICAL INDUSTRIAL GARAGE SERVICER BY DR JONES AND DR AMY CAICEDO, MILE KENDALL NURSING EDUCATOR , COURTNEY (DIRECTOR DATABASE), DEANGELO MARTIN, MYSELF AND PT'S MOTHER JULIAN , DISCUSSED THE PATIENT CONDITION, PROGRESS, PAIN MANAGEMENT AND DC PLANNING WITH APPROPRIATE CARE FOR THE PATIENT.ALL THE CONCERN AND DC PLAN DISCUSSED WITH THE MOTHER, AND MOTHER AGREED WITH THE PLAN. CM TO FOLLOW UP Addendum: 12/20/18 at 1513 by Rakel Almeida CM DC PLANNING RECEIVED A CALL FROM [facility] SPOKE WITH KISHORE , STATED THE [facility] TEAM DECIDED TO FAX TO [facility] AND [facility] FOR TRANSFER TO HIGHER LEVEL OF CARE FOR PLASTIC SURGEON PSYCHIATRIC THERAPY AND PAIN MANAGEMENT WILL NOTIFY DR WISEMAN THE ATTENDING
--- NOTE | 2018-11-29 18:03 | NUR ---
SCHEDULED MEDICATIONS DUE GIVEN. CONDITION UNCHANGED. WILL CONTINUE TO MONITOR.
--- NOTE | 2018-11-29 19:29 | NUR ---
GAVE REPORT TO CULTURIST NURSE FOR CONTINUITY OF CARE. PATIENT IN STABLE CONDITION.
[2018-11-29] MEDS: DEXTROSE IV SCH ×4 (19:52)
[2018-11-29] MEDS: MULTIVITAMIN IV SCH ×4 (19:52)
[2018-11-29] MEDS: AMINO ACIDS IV SCH ×4 (19:52)
[2018-11-29] MEDS: [UNRECOGNIZED DRUG - OTHER] IV SCH ×4 (19:52)
--- NOTE | 2018-11-29 19:52 | NUR ---
RECEIVED PATIENT AWAKE AND ALERT IN BED. PT ON ROOM, NO SOB OR S/S OF DISTRESS NOTED. PATIENT WITH MULTIPLE WOUNDS BUT REFUSES TO BE ASSESSED OR TURNED. PT C/O BACK AND LEG PAIN. PRN MEDICATION ADMINISTERED. NEW TPN BAG STARTED, TUBINGS CHANGED. PICC LINE IN PLACE ON THE LEFT UPPER ARM WITH CLEAN,DRY AND INTACT DRESSING. BED LOWERED WITH CALL LIGHT WITHIN REACH. WILL CONTINUE TO MONITOR
[2018-11-29 20:00] VITALS: BP 104/67
--- NOTE | 2018-11-29 21:00 | NUR ---
PT REFUSED TO TAKE SCHEDULED GABAPENTIN. EXPLAINED TO THE PATIENT THE PURPOSE OF THE MEDICATION .PER PATIENT, MED IS DIFFICULT TO SWALLOW. PT OFFERED TO HAVE MEDS MIXED WITH APPLESAUCE BUT STILL REFUSES
--- NOTE | 2018-11-29 22:57 | NUR ---
BLOOD SUGAR 74. PATIENT ENCOURAGED TO INCREASE PO INTAKE. PT PROVIDED WITH SNACKS BUT STILL REFUSES. NO S/S OF DISTRESS AT THIS TIME
[2018-11-30 01:00] VITALS: BP 107/74
[2018-11-30] MEDS: VANCOMYCIN 500 MG in DEXTROSE 5% 100 ML IV SCH (01:11)
[2018-11-30] MEDS: HYDROmorphone PFS 2 MG/ML SYR IVP PRN ×8 (01:48→23:18)
[2018-11-30] MEDS: GABAPENTIN 100 MG CAP PO SCH ×3 (05:00→20:21)
--- NOTE | 2018-11-30 07:20 | NUR ---
RECEIVED REPORT FROM MATERIALS HANDLER NURSE. PATIENT LYING DOWN IN BED, NO DISTRESS NOTED. PAIN WITHIN TOLERABLE AT THIS TIME. AAOX4, CALM, SKIN COLOR APPROPRIATE TO ETHNICITY, WARM TO TOUCH. HAS MULTIPLE WOUNDS ON BLE AND ON BACK, REFUSES TO BE TURNED AND WOUND ASSESSED. LEFT UPPER ARM PICC LINE NOTED, INFUSING IVF PER MD ORDERS. COLOSTOMY IN PLACE. REVIEWED PLAN OF CARE WITH PATIENT. PATIENT VERBALIZED UNDERSTANDING. SAFETY MEASURES IN PLACE, CALL LIGHT WITHIN REACH. WILL CONTINUE TO MONITOR.
[2018-11-30 08:00] VITALS: BP 129/78
[2018-11-30] MEDS: LACTOBACILLUS RHAMNOSUS GG 1 EACH CAP PO SCH (08:12)
[2018-11-30] MEDS: DULoxetine 30 MG CAPDR PO SCH (08:13)
--- NOTE | 2018-11-30 08:17 | NUR ---
PATIENT COMPLAINS OF SEVERE BACK PAIN. DILAUDID GIVEN AT THIS TIME. WILL CONTINUE TO MONITOR.
[2018-11-30] MEDS: BLOOD GLUCOSE MONITORING 1 DEV DEV FS SCH ×2 (09:00→20:30)
[2018-11-30 09:04] LABS: BASOPHILS # (AUTO) 0.1 K/uL (0.00-0.22); BASOPHILS % (AUTO) 0.5 % (0.0-2.0); EOSINOPHILS # (AUTO) 0.4 K/uL (0-0.4); EOSINOPHILS % (AUTO) 3.7 % (0.0-4.0); HEMATOCRIT 26.4 % (36-52); HEMOGLOBIN 8.6 g/dL (12.0-18.0); LYMPHOCYTES # (AUTO) 2.3 K/uL (2.0-11.5); LYMPHOCYTES % (AUTO) 20.6 % (20.5-51.1); MEAN CORPUSCULAR HEMOGLOBIN 29 pg (27-31); MEAN CORPUSCULAR HGB CONC 32 g/dL (33-37); MEAN CORPUSCULAR VOLUME 90.7 fL (80-94); MONOCYTES # (AUTO) 0.8 K/uL (0.8-1.0); MONOCYTES % (AUTO) 7.7 % (1.7-9.3); NEUTROPHILS # (AUTO) 7.5 K/uL (1.8-7.7); NEUTROPHILS % (AUTO) 67.5 % (42.2-75.2); PLATELET COUNT (AUTO) 525 K/uL (140-450); RED BLOOD CELL COUNT(AUTO) 2.91 MIL/uL (4.20-6.10); RED CELL DISTRIBUTION WIDTH 15.3 % (11.6-13.7); WHITE BLOOD COUNT (AUTO) 11.1 K/uL (4.8-10.8)
[2018-11-30 09:43] LABS: ANION GAP 11.7 (8-16); CARBON DIOXIDE 28.3 mmol/L (21-32); CREATININE 0.7 mg/dL (0.7-1.3)
--- NOTE | 2018-11-30 10:00 | NUR ---
PATIENT REFUSES TO BE TURNED. WILL CONTINUE TO MONITOR.
--- NOTE | 2018-11-30 10:28 | NUR ---
RECEIVED A CALL FROM [facility] SPOKE WITH QUITA HERNANDEZ EDUCATION INSTRUCTOR STATED [facility] DRAWBRIDGE TENDER DR BOWEN MENG CALLED AND REQUESTED TO HAVE A MEETING WITH THE DRAWBRIDGE TENDER OF [facility] TO HAVE A DISCUSSION , PER QUITA PROVIDED THE CM LANG 'S PHONE NUMBER AND WILL ARRANGE THE MEETING. CM TO FOLLOW
--- NOTE | 2018-11-30 10:48 | NUR ---
PER [facility] NURSE SPOKE WITH [facility] WOUND HAND BINDERY ASSEMBLY WORKER ,POST GRAFT WOUND CARE SHOULD BE SURGEON TO FOLLOW UP . DR CAICEDO IS THE ONE WHO CHANGE DRESSING DURING HOSPITAL STAY. THE RECOMMENDATION FOR REVASCULARIZATION OR AMPUTATION , PAIN CONTROL NERVE BLOCK WILL ADDRESS IT TO THE
[2018-11-30 12:31] LABS: MAGNESIUM 1.8 mg/dL (1.8-2.4)
[2018-11-30 12:32] LABS: PHOSPHORUS 5.8 mg/dL (2.5-4.9)
[2018-11-30] MEDS: VANCOMYCIN 1,000 MG in DEXTROSE 5% 250 ML IV SCH (13:02)
--- NOTE | 2018-11-30 13:13 | NUR ---
SCHEDULED MEDIATIONS DUE GIVEN. WILL CONTINUE TO MONITOR.
--- NOTE | 2018-11-30 14:25 | NUR ---
PATIENT COMPLAINS OF SEVERE PAIN, DILAUDID GIVEN. WILL CONTINUE TO MONITOR.
[2018-11-30 16:00] VITALS: BP 120/72
--- NOTE | 2018-11-30 17:30 | NUR ---
PATIENT LYING DOWN IN BED TALKING WITH MOTHER AT BEDSIDE. CONDITION UNCHANGED. WILL CONTINUE TO MONITOR.
--- NOTE | 2018-11-30 19:25 | NUR ---
GAVE REPORT TO CONTENT DIRECTOR NURSE FOR CONTINUITY OF CARE. PATIENT IN STABLE CONDITION.
--- NOTE | 2018-11-30 19:26 | NUR ---
Received endorsement from AM shift RN; patient A/Ox4, able to make needs known, North Korean speaking, bedbound. Patient is talking with mother Saray; introduced self, updated board. No SOB or distress noted, on room air. On contact precautions for MDRO wounds; observed and maintained. IV site on left upper arm PICC line, double lumen, running TPN at 70mL/hr and NS at 10mL/hr. 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 Bed in the lowest position, call light within reach. Initial assessment done. Will continue to monitor.
[2018-11-30] MEDS: [UNRECOGNIZED DRUG - OTHER] IV SCH ×4 (20:21)
[2018-11-30] MEDS: AMINO ACIDS IV SCH ×4 (20:21)
[2018-11-30] MEDS: MULTIVITAMIN IV SCH ×4 (20:21)
[2018-11-30] MEDS: DEXTROSE IV SCH ×4 (20:21)
--- NOTE | 2018-11-30 20:30 | NUR ---
TPN bag and IV tubing replaced.
--- NOTE | 2018-11-30 21:00 | NUR ---
Due meds given, tolerated well.
--- NOTE | 2018-11-30 23:30 | NUR ---
Vitals taken, no distress noted.
[2018-12-01] VITALS: BP 105/60
--- NOTE | 2018-12-01 00:21 | NUR ---
Patient refuses to be turned, repositioned, and wound care at this time.
[2018-12-01] MEDS: VANCOMYCIN 1,000 MG in DEXTROSE 5% 250 ML IV SCH ×2 (00:26→14:27)
[2018-12-01] MEDS: HYDROmorphone PFS 2 MG/ML SYR IVP PRN ×6 (02:13→20:21)
--- NOTE | 2018-12-01 02:20 | NUR ---
Administered PRN pain medication at this time. Will continue to monitor.
--- NOTE | 2018-12-01 04:10 | NUR ---
Checks made. Patient watching TV. No distress noted.
[2018-12-01] MEDS: GABAPENTIN 100 MG CAP PO SCH ×3 (05:53→20:09)
--- NOTE | 2018-12-01 06:05 | NUR ---
Vitals stable. Due medications given. Will endorse to AM shift RN for continuity of care.
--- NOTE | 2018-12-01 07:20 | NUR ---
RECEIVED PT FROM NIGHT NURSE IN STABLE CONDITION. AAOX4. PT RESPIRATIONS EVEN AND UNLABORED ON ROOM AIR. IV IN PLACE L UA PICC INFUSING PER ORDER. PT VITAL SIGNS MONITORED. SKIN WARM AND DRY WITH CHRONIC WOUND PRESENT. SAFETY MEASURES IN PLACE. BED IN LOW POSITION. WILL CONTINUE TO MONITOR.
[2018-12-01 07:28] LABS: ANION GAP 13.3 (8-16); CARBON DIOXIDE 28.1 mmol/L (21-32); CREATININE 0.8 mg/dL (0.7-1.3); POTASSIUM 4.4 mmol/L (3.5-5.1)
[2018-12-01 07:38] LABS: MAGNESIUM 2.1 mg/dL (1.8-2.4); PHOSPHORUS 5.3 mg/dL (2.5-4.9)
[2018-12-01 08:00] VITALS: BP 112/63
[2018-12-01] MEDS: DULoxetine 30 MG CAPDR PO SCH (08:22)
[2018-12-01] MEDS: LACTOBACILLUS RHAMNOSUS GG 1 EACH CAP PO SCH (08:22)
--- NOTE | 2018-12-01 08:25 | NUR ---
PRN DILAUDID ADMINISTERED FOR PAIN. WILL CONTINUE TO MONITOR.
[2018-12-01] MEDS: BLOOD GLUCOSE MONITORING 1 DEV DEV FS SCH ×2 (09:11→20:42)
--- NOTE | 2018-12-01 11:12 | NUR ---
MEDICATIONS ADMINISTERED PER ORDER. PT TOLERATED WELL. WILL CONTINUE TO MONITOR.
--- NOTE | 2018-12-01 13:24 | NUR ---
PT REFUSED TO BE REPOSITIONED AND HAVE DRESSING CHANGED. WILL CONTINUE TO MONITOR.
--- NOTE | 2018-12-01 14:25 | NUR ---
ADMINISTERED PRN DILAUDID FOR PAIN. WILL CONTINUE TO MONITOR.
[2018-12-01 16:00] VITALS: BP 115/60
--- NOTE | 2018-12-01 16:30 | NUR ---
MEDICATIONS ADMINISTERED PER ORDER. PT TOLERATED WELL. WILL CONTINUE TO MONITOR.
--- NOTE | 2018-12-01 19:15 | NUR ---
BEDSIDE REPORT GIVEN TO NIGHT NURSE FOR CONTINUITY OF CARE.
--- NOTE | 2018-12-01 19:16 | NUR ---
Received endorsement from AM shift RN; patient A/Ox4, able to make needs known, Mauritanian speaking, bedbound. Patient is talking with mother Saray and relative; introduced self, updated board. No SOB or distress noted, on room air. On contact precautions for MDRO wounds; observed and maintained. IV site on left upper arm PICC line, double lumen, running TPN at 70mL/hr and NS at 10mL/hr and left antecubital, 22 gauge, saline locked. 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 Bed in the lowest position, call light within reach. Initial assessment done. Will continue to monitor.
[2018-12-01] MEDS: MULTIVITAMIN-12 10 ML in DEXTROSE 50% 760 ML, AMINO ACIDS 8.5% 760 ML, FAT EMULSION 20%... IV SCH ×4 (20:08)
--- NOTE | 2018-12-01 21:40 | NUR ---
Due meds given, tolerated well.
[2018-12-01] MEDS: fentaNYL 0.1 MG/HR PATCH TD SCH (22:16)
--- NOTE | 2018-12-01 23:35 | NUR ---
Vitals taken, no SOB or distress noted.
[2018-12-02] VITALS: BP 98/58
[2018-12-02] MEDS: HYDROmorphone PFS 2 MG/ML SYR IVP PRN ×8 (00:09→23:31)
[2018-12-02] MEDS: VANCOMYCIN 1,000 MG in DEXTROSE 5% 250 ML IV SCH (01:00)
--- NOTE | 2018-12-02 01:10 | NUR ---
Patient refused wound care and repositioning.
--- NOTE | 2018-12-02 01:45 | NUR ---
Lab unsuccessful in retrieving blood sample for vancomycin trough. Due Vancomycin dose not administered at this time.
--- NOTE | 2018-12-02 03:30 | NUR ---
Pain med given, removed left antecubital IV site, tip intact.
[2018-12-02] MEDS: GABAPENTIN 100 MG CAP PO SCH ×3 (05:00→21:00)
--- NOTE | 2018-12-02 05:45 | NUR ---
Patient refused Gabapentin at this time.
--- NOTE | 2018-12-02 06:30 | NUR ---
Vitals stable, due meds given. Will endorse to AM shift RN for continuity of care.
[2018-12-02 06:41] LABS: ALBUMIN 1.7 g/dL (3.4-5.0); ANION GAP 14.9 (8-16); CARBON DIOXIDE 26.6 mmol/L (21-32); CREATININE 0.9 mg/dL (0.7-1.3); MAGNESIUM 1.9 mg/dL (1.8-2.4); PHOSPHORUS 5.3 mg/dL (2.5-4.9); POTASSIUM 4.5 mmol/L (3.5-5.1); TOTAL BILIRUBIN 0.2 mg/dL (0.0-1.0)
--- NOTE | 2018-12-02 07:36 | NUR ---
RECEIVED HAND OFF REPORT ON PT PT APPEARS STABLE AND IN NO APPARENT DISTRESS. ALL SAFETY MEASURES ARE IN PLACE. WILL CONTINUE TO MONITOR
[2018-12-02 08:00] VITALS: BP 100/60
--- NOTE | 2018-12-02 08:10 | NUR ---
SPOKE WITH DR. CAICEDO ON THE PHONE DR. CAICEDO STATED HE WANTED TO PERFORM THE DRESSING CHANGE IN THE OR TODAY. PT HAS BEEN NPO SINCE AROUND 0400 TODAY WILL HOLD TODAYS MEALS
[2018-12-02] MEDS: DULoxetine 30 MG CAPDR PO SCH (09:00)
[2018-12-02] MEDS: LACTOBACILLUS RHAMNOSUS GG 1 EACH CAP PO SCH (09:00)
[2018-12-02] MEDS: BLOOD GLUCOSE MONITORING 1 DEV DEV FS SCH ×2 (09:36→21:48)
--- NOTE | 2018-12-02 11:06 | NUR ---
RECEIVED INFORMED CONSENT FROM PATIENT AND PLACED IN THE PATIENTS CHART
[2018-12-02 11:52] LABS: BASOPHILS # (AUTO) 0.1 K/uL (0.00-0.22); BASOPHILS % (AUTO) 0.4 % (0.0-2.0); EOSINOPHILS # (AUTO) 0.3 K/uL (0-0.4); EOSINOPHILS % (AUTO) 1.9 % (0.0-4.0); HEMATOCRIT 28.9 % (36-52); HEMOGLOBIN 9.3 g/dL (12.0-18.0); LYMPHOCYTES % (AUTO) 15.2 % (20.5-51.1); MEAN CORPUSCULAR HEMOGLOBIN 30 pg (27-31); MEAN CORPUSCULAR HGB CONC 32 g/dL (33-37); MEAN CORPUSCULAR VOLUME 92.4 fL (80-94); MONOCYTES % (AUTO) 7.5 % (1.7-9.3); PLATELET COUNT (AUTO) 503 K/uL (140-450); RED BLOOD CELL COUNT(AUTO) 3.12 MIL/uL (4.20-6.10); WHITE BLOOD COUNT (AUTO) 13.3 K/uL (4.8-10.8)
[2018-12-02] MEDS ORDERED: KETAMINE 500 MG/5 ML VIAL ONE (13:07)
[2018-12-02] MEDS ORDERED: MIDAZOLAM 2 MG/2 ML VIAL ONE (13:07)
--- NOTE | 2018-12-02 13:14 | NUR ---
PATIENT HAS BEEN TAKEN OFF THE UNIT TO OR FOR WOUND DRESSING CHANGE.
[2018-12-02] MEDS ORDERED: ONDANSETRON 4 MG/2 ML VIAL IVP PRN (13:30)
[2018-12-02] MEDS ORDERED: HYDROmorphone PFS 2 MG/ML SYR ONE (13:38)
--- NOTE | 2018-12-02 13:51 | NUR ---
12/02/18 RD FOLLOW UP COMPLETED PLEASE REFER TO NUTRITION ASSESSMENT UNDER CARE ACTIVITY FOR ESTIMATED NUTRITIONAL NEEDS. 1. RECOMMEND INCREASING TPN INFUSION WHEN MEDICALLY APPROPRIATE TO MEET 75% OF ESTIMATED NEEDS 2. CONTINUE REGULAR DIET TOLERATED WITH SUPPLEMENTS AND FOOD BROUGHT FROM HOME IF APPROPRIATE PER MD 3. CONTINUE RODRIGUEZ BID 4. ENCOURAGE INCREASING PO INTAKE TO AT LEAST 1250 KCAL/DAY AND 40 GM OF PROTEIN/DAY 5. RD WILL FOLLOW UP 2-3 DAYS, HIGH RISK ALEXEI JOHNSTON RD
[2018-12-02] MEDS: HYDROmorphone 1 MG/ML AMP IVP PRN ×4 (14:00→14:30)
[2018-12-02] MEDS: MULTIVITAMIN-12 10 ML in DEXTROSE 50% 760 ML, AMINO ACIDS 8.5% 760 ML, FAT EMULSION 20%... IV SCH ×8 (14:26→20:27)
[2018-12-02 16:23] VITALS: BP 123/64
--- NOTE | 2018-12-02 17:10 | NUR ---
PAGED DR. WISEMAN PT STATED HIS PAIN IS UNBEARABLE
--- NOTE | 2018-12-02 17:16 | NUR ---
SPOKE WITH DR. WISEMAN. GAVE TORB ONE TIME DOSE 2MG DILAUDID PLACED ORDER WILL MEDICATE PATIENT
[2018-12-02] MEDS ORDERED: HYDROmorphone PFS 2 MG/ML SYR IVP SCH (17:30)
--- NOTE | 2018-12-02 19:26 | NUR ---
ENDORSED PT AT BEDSIDE TO PM RN PT APPEARS STABLE AND IN NO APPARENT DISTRESS. ALL SAFETY MEASURES ARE IN PLACE.
--- NOTE | 2018-12-02 19:45 | NUR ---
PT EATING MOM'S OUTSIDE FOOD, PT;S BLOOD SUGAR CHECKED 113 NO INSULIN COVERAGE
[2018-12-02] MEDS ORDERED: ALTEPLASE 100 MG VIAL IV ONE (20:00)
--- NOTE | 2018-12-02 20:30 | NUR ---
ALTEPLASE NOT IN THE PYXIS ,INFORMED TECHNICAL ANALYST ALTEPLASE TAKEN AT ER YET
--- NOTE | 2018-12-02 21:00 | NUR ---
PT REFUSED THE NEURONTIN EXPLAINED THE RISKS AND BENEFITS WILL OFFER IT LATER
--- NOTE | 2018-12-02 22:00 | NUR ---
AGAIN OFFERED THE NEURONTIN, PT REFUSED. ALSO REFUSED TO BE TURNED Q2
[2018-12-02] MEDS: ALTEPLASE 2 MG VIAL MC SCH (22:15)
--- NOTE | 2018-12-02 22:15 | NUR ---
ADMINISTERED ALTEPASE INTO 1 CLOTTED PICC LINE; COLOR PURPLE COLOR. 4 MG ORDERED FOR 2 VIALS, BUT ONLY ADMINISTERED 2 MG/ VIAL FOR ONLY 1 CLOTTED PICC LINE. CHARGE NURSE AWARE
--- NOTE | 2018-12-02 22:45 | NUR ---
PER INSTRUCTIONS LEAFLET OF ALTEPLASE ADMINISTRATION; AFTER 30 MINS WHICH IS AT 2245 DWELL TIME, ASSESS FXN BY ATTEMPTING TO ASPIRATE BLOOD, IF THE CATHETER IS FXNAL GO TO STEP 7, BUT IF THE CATHETER IS FXNAL IS NOT FXNAL GO TO STEP 5. CATHETER IS NOT FXNAL SO I [id number] STEP 5.
--- NOTE | 2018-12-02 23:35 | NUR ---
STEP 5 AFTER 120 MINS OF DWELL TIME, ASSESS CATHETER FXN BY ATTEMPTING TO ASPIRATE BLOOD AND CATHETER CONTENTS. IF THE CATHETER IS FXNAL GO TO STEP 7, IF THE CATHETER IS NOT FXNAL GO TO STEP 6. THE CATHETER IS NOT FXNAL SO I GO TO STEP 6. Addendum: 12/03/18 at 0018 by Hermelinda Townsend RN AMEND TIME TO 0005 ( WHICH 120 MINS OF DWELL TIME)
--- NOTE | 2018-12-02 23:41 | NUR ---
STEP 6, IF THE CATHETER IS NOT RESTORED AFTER ONE DOSE OF ALTEPLASE, A SECOND DOSE OF EQUAL AMOUNT MAY BE INSTILLED. CONTACTED ROLLER HELPER RON TO GET ANOTHER DOSE, FOR ME TO GIVE ANOTHER DOSE PER INSTRUCTION
[2018-12-03] VITALS: BP 141/83
[2018-12-03] MEDS: ALTEPLASE 2 MG VIAL MC SCH (00:09)
--- NOTE | 2018-12-03 00:39 | NUR ---
AFTER 30 MINS OF DWELL TIME, ASSESS CATHETER FXN. IF PATENT, GO TO STEP 7. THE CATHETER IS PATENT AND FUNCTIONAL,SO I WENT TO STEP 7, AND INJECTED 4-5 ML OF SALINE INJECTION INTO THE CATHETER SLOWLY. Addendum: 12/03/18 at 0506 by Hermelinda Townsend RN BLOOD CLOT DISSOLVED
[2018-12-03] MEDS: HYDROmorphone PFS 2 MG/ML SYR IVP PRN ×8 (02:24→23:46)
[2018-12-03] MEDS: GABAPENTIN 100 MG CAP PO SCH ×3 (05:00→20:37)
--- NOTE | 2018-12-03 05:04 | NUR ---
PT REFUSED THE NEURONTIN, WILL ENDORSE NEXT SHIFT TO INFORM DR. GREEN
--- NOTE | 2018-12-03 06:56 | NUR ---
AWAKE, ALERT ORIENTED X 4, ENDORSED TO NEXT SHIFT , PT IN STABLE CONDITION AT THIS TIME. ENDORSED TO NEXT SHIFT
[2018-12-03 07:02] LABS: ANION GAP 14.2 (8-16); CARBON DIOXIDE 24.2 mmol/L (21-32); POTASSIUM 4.4 mmol/L (3.5-5.1)
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
[2018-12-03 08:00] VITALS: BP 117/64
[2018-12-03] MEDS: BLOOD GLUCOSE MONITORING 1 DEV DEV FS SCH ×2 (08:41→21:00)
--- NOTE | 2018-12-03 08:41 | NUR ---
PATIENT COMPLAINED HE HAS 9/10 PAIN AROUND HIS L LEG,CHECKED BP AND RECEIVED 112/61, PULSE 122, SPO2 98% ON RA, ADMINISTERED PRN PAIN MED VIA IVP, PATIENT TOLERATED WELL. MED EDUCATION PROVIDED TO PATIENT. PATIENT REFUSED TO TAKE HIS PO AM MEDS THIS TIME AND SAID "I DON'T FEEL LIKE TAKING ANYTHING NOW. CAN YOU COME BACK IN AN HOUR?" WILL ADMINISTER NEXT HOUR. PATIENT DIDN'T TOUCH HIS BREAKFAST TRAY AND ONLY WANT TO DRINK HIS OWN JUICE WITH ICE. ENCOURAGED PATIENT TO EAT HIS BREAKFAST AND EDUCATED PATIENT THAT ADEQUATE INTAKE AND NUTRIENTS WILL PROMOTE WOUND HEALING, PATIENT VERBALIZED UNDERSTANDING. PATIENT SAID "MAYBE I WILL EAT IT LATER NOT NOW." PATIENT IS AWAKE AND WATCHING TV ON BED AT THIS TIME. SAFETY MEASURES IN PLACE. BED IN LOW POSITION AND CALL LIGHT WITHIN REACH. WOUND BED ACTIVATED. INSTRUCTED PATIENT TO USE THE CALL LIGHT FOR ANY ASSISTANCE AND PATIENT WAS AWARE.
[2018-12-03] MEDS: DULoxetine 30 MG CAPDR PO SCH (09:00)
[2018-12-03] MEDS: LACTOBACILLUS RHAMNOSUS GG 1 EACH CAP PO SCH (09:00)
--- NOTE | 2018-12-03 09:45 | NUR ---
PATIENT IS RESTING ON BED AT THIS TIME AND STATED "COME BACK LATER, I DON'T WANT TO DO ANYTHING NOW." NO SIGNS OF DISTRESS NOTED. SAFETY MEASURES IN PLACE. BED IN LOW POSITION AND CALL LIGHT WITHIN REACH. WOUND BED ACTIVATED.
[2018-12-03] MEDS: VANCOMYCIN 750 MG in DEXTROSE 5% 250 ML IV SCH ×2 (10:24→22:24)
--- NOTE | 2018-12-03 10:24 | NUR ---
ADMINISTERED VANCOMYCIN VIA IVPB PER MD ORDER, MED EDUCATION PROVIDED TO PATIENT AND PATIENT VERBALIZED UNDERSTANDING. PATIENT REFUSED AM MEDS CYMBALTA AND LACTOBACILLIUS AND STATED "I DON'T WANT TO SWALLOW ANYTHING." ASKED IF PATIENT WANT TO TAKE IT LATER, PATIENT SAID "NO, I DON'T WANT THEM." MEDS EDUCATION PROVIDED TO PATIENT AND PATIENT INSISTED NOT WANT TO TAKE THEM. PATIENT DID NOT EAT HIS BREAKFAST, ENCOURAGE PATIENT TO EAT HIS BREAKFAST TO PROMOTE WOUND HEALING AND ADEQUATE NUTRIENTS FOR HIS BODY, PATIENT SAID "IT'S OK. I EAT SOME SNACKS LAST NIGHT. I JUST DON'T FEEL LIKE EATING ANYTHING AT THIS TIME." PATIENT ALSO REFUSED TO BE REPOSITION AND TURN, WOUND CARE/SKIN CARE EDUCATION PROVIDED AND PATIENT WAS AWARE. PATIENT IS RESTING ON BED AT THIS TIME. STATED THAT HE HAS 4/10 PAIN BUT IT'S TOLERABLE. NO SIGNS OF DISTRESS NOTED. SAFETY MEASURES IN PLACE. BED IN LOW POSITION AND CALL LIGHT WITHIN REACH. WOUND BED ACTIVATED. INSTRUCTED PATIENT TO USE THE CALL LIGHT FOR ANY ASSISTANCE AND PATIENT WAS AWARE.
--- NOTE | 2018-12-03 11:48 | NUR ---
PATIENT COMPLAINED HE HAS 8/10 PAIN AROUND HIS L LEG,CHECKED VITAL SIGNS AND RECEIVED TEMP 98.7, BP 112/69, PULSE 112, SPO2 99% ON RA, ADMINISTERED PRN PAIN MED VIA IVP, PATIENT TOLERATED WELL. MED EDUCATION PROVIDED TO PATIENT. PATIENT VERBALIZED UNDERSTANDING. PATIENT IS AWAKE AND WATCHING TV ON BED AT THIS TIME. SAFETY MEASURES IN PLACE. BED IN LOW POSITION AND CALL LIGHT WITHIN REACH. WOUND BED ACTIVATED. INSTRUCTED PATIENT TO USE THE CALL LIGHT FOR ANY ASSISTANCE AND PATIENT WAS AWARE.
--- NOTE | 2018-12-03 12:04 | NUR ---
DR WISEMAN IS TALKING TO PATIENT AT BEDSIDE. INFORMED DR WISEMAN THAT PATIENT REFUSED ALL HIS PO MEDS LAST NIGHT AND THIS AM. DR WISEMAN WAS AWARE. PATIENT IS AWAKE AND RESTING ON BED AT THIS TIME. NO SIGNS OF DISTRESS NOTED. SAFETY MEASURES IN PLACE.
--- NOTE | 2018-12-03 13:15 | NUR ---
PATIENT HAS TWO BITES OF HIS LUNCH (SANDWICH) AND SAID "I WILL EAT IT SLOWLY." PATIENT REFUSED GABAPENTIN AND STATED "NO, I DON'T WANT THEM." MED EDUCATION PROVIDED TO PATIENT AND PATIENT INSISTED NOT WANT TO TAKE THEM. PATIENT ALSO REFUSED WOUND CARE AND REPOSITION AND SAID "NO, PLEASE DON'T TURN ME. YOU WILL HURT ME. I ONLY DO WOUND CARE WITH DR CAICEDO AND HE WILL TO SLEEP." WOUND CARE EDUCATION PROVIDED TO PATIENT AND PATIENT VERBALIZED OK. PATIENT AWAKE AND WORKING ON HIS LUNCH. NO SIGNS OF DISTRESS NOTED. SAFETY MEASURES IN PLACE. BED IN LOW POSITION AND CALL LIGHT WITHIN REACH. WOUND BED ACTIVATED. INSTRUCTED PATIENT TO USE THE CALL LIGHT FOR ANY ASSISTANCE AND PATIENT WAS AWARE.
--- NOTE | 2018-12-03 14:44 | NUR ---
PATIENT COMPLAINED HE HAS 8/10 PAIN AROUND HIS L LEG,CHECKED VITAL SIGNS AND RECEIVED TEMP 98.2, BP 110/65, PULSE 107, SPO2 100% ON RA, ADMINISTERED PRN PAIN MED VIA IVP, PATIENT TOLERATED WELL. MED EDUCATION PROVIDED TO PATIENT. PATIENT VERBALIZED UNDERSTANDING. PATIENT IS AWAKE AND WATCHING TV ON BED AT THIS TIME. SAFETY MEASURES IN PLACE. BED IN LOW POSITION AND CALL LIGHT WITHIN REACH. WOUND BED ACTIVATED. INSTRUCTED PATIENT TO USE THE CALL LIGHT FOR ANY ASSISTANCE AND PATIENT WAS AWARE.
--- NOTE | 2018-12-03 15:41 | NUR ---
PATIENT IS RESTING ON BED AT THIS TIME. NO SIGNS OF DISTRESS NOTED. SAFETY MEASURES IN PLACE. BED IN LOW POSITION AND CALL LIGHT WITHIN REACH. WOUND BED ACTIVATED. INSTRUCTED PATIENT TO USE THE CALL LIGHT FOR ANY ASSISTANCE AND PATIENT WAS AWARE.
[2018-12-03 16:00] VITALS: BP 119/69
--- NOTE | 2018-12-03 16:18 | NUR ---
PATIENT AWAKE AND TALKING TO MOTHER MELITA BY BEDSIDE. NO SIGNS OF DISTRESS NOTED. SAFETY MEASURES IN PLACE. BED IN LOW POSITION AND CALL LIGHT WITHIN REACH. WOUND BED ACTIVATED. INSTRUCTED PATIENT TO USE THE CALL LIGHT FOR ANY ASSISTANCE AND PATIENT WAS AWARE.
--- NOTE | 2018-12-03 17:45 | NUR ---
PATIENT COMPLAINED HE HAS 8/10 PAIN AROUND HIS L LEG,CHECKED VITAL SIGNS AND RECEIVED TEMP 98.6, BP 120/72, PULSE 127, SPO2 100% ON RA, ADMINISTERED PRN PAIN MED VIA IVP, PATIENT TOLERATED WELL. MED EDUCATION PROVIDED TO PATIENT. PATIENT VERBALIZED UNDERSTANDING. PATIENT IS AWAKE AND TALKING TO MOTHER MELITA BY BEDSIDE. SAFETY MEASURES IN PLACE. BED IN LOW POSITION AND CALL LIGHT WITHIN REACH. WOUND BED ACTIVATED. INSTRUCTED PATIENT TO USE THE CALL LIGHT FOR ANY ASSISTANCE AND PATIENT WAS AWARE.
--- NOTE | 2018-12-03 19:08 | NUR ---
ENDORSED PATIENT AT BEDSIDE TO HAIR BOILER OPERATOR NURSE FOR CONTINUITY OF CARE. PATIENT AWAKE AND RESTING ON BED. PATIENT IS IN STABLE CONDITION. SAFETY MEASURES IN PLACE.
--- NOTE | 2018-12-03 19:09 | NUR ---
RECEIVED ENDORSEMENT FROM AM SHIFT RN. PATIENT ALERT AND ORIENTED X 4. STATELESS SPEAKING, ABLE TO MAKE NEEDS KNOWN, BEDBOUND. MELITA, MOTHER, AT BEDSIDE. INTRODUCED SELF AND UPDATED BOARD. NO DISTRESS NOTED. NO SOB. ON ROOM AIR. ON CONTACT PRECAUTIONS FOR MDRO WOUNDS, OBSERVED AND MAINTAINED. IV SITE PICC LINE ON LEFT UPPER ARM, DOUBLE LUMEN, RUNNING TPN. SKIN NON-INTACT; COLOSTOMY BAG NOTED ON LEFT LOWER QUADRANT AND WOUNDS NOTED ON BILATERAL LOWER EXTREMITIES, RIGHT BKA NOTED. CALL LIGHT WITHIN REACH. BED IN LOWEST POSITION. WILL CONTINUE TO MONITOR.
[2018-12-03] MEDS: MULTIVITAMIN-12 10 ML in DEXTROSE 50% 760 ML, AMINO ACIDS 8.5% 760 ML, FAT EMULSION 20%... IV SCH ×4 (20:36)
--- NOTE | 2018-12-03 20:47 | NUR ---
PATIENT WITH C/O 9/10 PAIN ON HIS BACK, ACHING. PRN MEDICATION GIVEN. WILL RE-ASSESS ACCORDINGLY.
[2018-12-04] VITALS: BP 100/78
--- NOTE | 2018-12-04 01:10 | NUR ---
Patient refused wound care and repositioning.
[2018-12-04] MEDS: HYDROmorphone PFS 2 MG/ML SYR IVP PRN ×7 (02:46→20:40)
--- NOTE | 2018-12-04 02:48 | NUR ---
Checks done. Patient requested pain medication. Medicated per pain scale. Will continue to monitor.
--- NOTE | 2018-12-04 04:28 | NUR ---
Rounds done. Patient resting comfortably. Visible chest rise and fall noted.
[2018-12-04] MEDS: GABAPENTIN 100 MG CAP PO SCH ×3 (05:00→20:50)
--- NOTE | 2018-12-04 05:25 | NUR ---
Called section hand helper doctor for order renewal of Dilaudid 2mg/1ml for client. Medication was discontinued at 0331 in the [facility]. Awaiting call from Dr. Qureshi.
--- NOTE | 2018-12-04 06:15 | NUR ---
Patient comfortable in bed. Due medications given. Vital stable. Will endorse to AM shift RN for continuity of care.
--- NOTE | 2018-12-04 07:05 | NUR ---
RECEIVED PT FROM PHOTO LAB TECHNICIAN NURSE, PT IS AWAKE AND LYING SUPINE ON THE BED WITH SIDE RAILS UP AND CALL LIGHT WITHIN REACH, SAFETY AND FALL PRECAUTION INITIATED, PT HAS A LEFT UA PICC LINE WITH ONE LUMEN ON TPN INFUSING AT A RATE OF 70ML/HR AND ANOTHER LUMEN WITH NS INFUSING AT 10ML/HR, PT HAS A RT ARM SKIN GRAFT, RT BKA AND LEFT WOUND REINFORCED WITH DRESSING, PT REFUSED TO HAVE A ASSESSMENT OF THE WOUND, C/O PAIN RATE OF 7/10 AND WILL MEDICATE PT, WILL CONTINUE TO BE MONITORED
[2018-12-04 08:00] VITALS: BP 125/67
--- NOTE | 2018-12-04 08:04 | NUR ---
PT WAS GIVEN PAIN MEDICATION NOW VIA IV PUSH, PARAMETER CHECKED AND V/S IS STABLE. WILL RE-ASSESS PAIN AND MONITOR PT.
[2018-12-04] MEDS: LACTOBACILLUS RHAMNOSUS GG 1 EACH CAP PO SCH (09:16)
[2018-12-04] MEDS: DULoxetine 30 MG CAPDR PO SCH (09:16)
[2018-12-04] MEDS: BLOOD GLUCOSE MONITORING 1 DEV DEV FS SCH ×2 (09:22→20:47)
[2018-12-04 09:25] LABS: HEMATOCRIT 27.3 % (36-52); HEMOGLOBIN 8.4 g/dL (12.0-18.0); MEAN CORPUSCULAR HEMOGLOBIN 29 pg (27-31); MEAN CORPUSCULAR HGB CONC 31 g/dL (33-37); MEAN CORPUSCULAR VOLUME 94.4 fL (80-94); PLATELET COUNT (AUTO) 413 K/uL (140-450); RED BLOOD CELL COUNT(AUTO) 2.89 MIL/uL (4.20-6.10); RED CELL DISTRIBUTION WIDTH 15.3 % (11.6-13.7); WHITE BLOOD COUNT (AUTO) 15.8 K/uL (4.8-10.8)
[2018-12-04 10:43] LABS: BASOPHILS % (MANUAL) 0 % (0-2); EOSINOPHILS % (MANUAL) 3 % (0-4); LYMPHOCYTES % (MANUAL) 11 % (20-46); MONOCYTES % (MANUAL) 10 % (5-12)
--- NOTE | 2018-12-04 11:13 | NUR ---
PT C/O PAIN RATE OF 8/10, PAIN ,MEDICATION WAS GIVEN VIA IV PUSH, V/S CHECKED AND IS STABLE, WILL RE-ASSESS AND MONITOR PT.
[2018-12-04 13:42] LABS: POTASSIUM 3.5 mmol/L (3.5-5.1)
[2018-12-04 13:43] LABS: ANION GAP 20.2 (8-16); CARBON DIOXIDE 19.3 mmol/L (21-32)
[2018-12-04 13:53] LABS: MAGNESIUM 1.9 mg/dL (1.8-2.4); PHOSPHORUS 5.2 mg/dL (2.5-4.9)
--- NOTE | 2018-12-04 14:06 | NUR ---
PT WAS GIVEN PAIN MEDICATION NOW VIA IV PUSH, V/S CHECKED AND IS STABLE, WILL RE-ASSESS PAIN AND MONITOR PT.
[2018-12-04] MEDS: VANCOMYCIN 750 MG in DEXTROSE 5% 250 ML IV SCH (15:32)
--- NOTE | 2018-12-04 15:32 | NUR ---
PT WAS GIVEN VANCOMYCIN IVPB NOW. WILL MONITOR PT.
[2018-12-04 16:00] VITALS: BP 121/77
--- NOTE | 2018-12-04 17:32 | NUR ---
PT WAS GIVEN PAIN MEDICATION IV PUSH NOW AND PARAMETER WAS CHECKED AND IS STABLE, WILL RE-ASSESS PAIN AND MONITOR PT.
--- NOTE | 2018-12-04 19:20 | NUR ---
ENDORSED PT TO PALEOBOTANIST NURSE FOR CONTINUITY OF CARE.
--- NOTE | 2018-12-04 19:21 | NUR ---
Received beside report from AM nurse, Trang. Pt is laying in bed awake and watching tv with family member at beside. Pt is AOx4. No SOB or respiratory distress. Pt on room air. PICC at left UA and IV access at left AC 22 gauge. Pt on contact precaution for MRDO wounds. Skin non-intact. Colostomy bag noted on left lower quadrant. Bed in low position. Pt is on fall risk. Safety measures in place. Board updated. Call light within reach. Will continue to monitor patient.
--- NOTE | 2018-12-04 20:37 | NUR ---
Pt refused Neurontin 300mg, 3 capsules at this time. Pt states he is "not able to swallow it."
--- NOTE | 2018-12-04 20:40 | NUR ---
Pt given pain medication via IV push at this time . Will reassess patient and will continue to monitor.
[2018-12-04] MEDS: MULTIVITAMIN-12 10 ML in DEXTROSE 50% 760 ML, AMINO ACIDS 8.5% 760 ML, FAT EMULSION 20%... IV SCH ×4 (20:49)
--- NOTE | 2018-12-04 20:49 | NUR ---
TPN HUNG AND RUNNING.
[2018-12-04] MEDS: fentaNYL 0.1 MG/HR PATCH TD SCH (22:37)
--- NOTE | 2018-12-04 22:37 | NUR ---
FENTANYL PATCH APPLIED TO RIGHT SHOULDER. PREVIOUS PATCH REMOVED.
[2018-12-05] VITALS: BP 114/70
--- NOTE | 2018-12-05 00:05 | NUR ---
Pt vital signs taken. No signs of distress noted. Will continue to monitor pt.
[2018-12-05] MEDS: HYDROmorphone PFS 2 MG/ML SYR IVP PRN ×7 (00:56→22:53)
--- NOTE | 2018-12-05 00:56 | NUR ---
Pt was given pain medication via IV push at this time. Will continue to monitor pt.
--- NOTE | 2018-12-05 01:07 | NUR ---
Pt refused wound assessment and repositioning.
--- NOTE | 2018-12-05 04:03 | NUR ---
Pt was given pain medication via IV push at this time. Will continue to monitor pt.
[2018-12-05] MEDS: GABAPENTIN 100 MG CAP PO SCH ×3 (04:11→20:13)
--- NOTE | 2018-12-05 04:11 | NUR ---
Pt refused Gabapentin at this time.
[2018-12-05] MEDS: ONDANSETRON 4 MG/2 ML VIAL IVP PRN ×2 (04:12→20:14)
--- NOTE | 2018-12-05 04:12 | NUR ---
Pt received PRN Zofran for nausea at this time. Will continue to monitor pt.
--- NOTE | 2018-12-05 06:10 | NUR ---
PT REFUSED BLOOD DRAWS. TOLD GOLDBEATER TO COME BACK LATER.
--- NOTE | 2018-12-05 07:27 | NUR ---
RECEIVED REPORT FROM COUNTY SUPERVISOR NURSE. PATIENT LYING DOWN IN BED SLEEPING, AROUSABLE BY VOICE. NO DISTRESS NOTED. PAIN WITHIN TOLERABLE AT THIS TIME. RESPIRATIONS EVEN, UNLABORED, ON ROOM AIR. ABD SOFT, NON-DISTENDED. LUARM PICC LINE NOTED INFUSING TPN PER MD ORDERS. MULTIPLE WOUNDS NOTED ON BODY, HOWEVER, PATIENT CONTINUES TO REFUSE TO BE TURNED AND ASSESSED. COLOSTOMY IN PLACE. REVIEWED PLAN OF CARE WITH PATIENT. PATIENT VERBALIZED UNDERSTANDING. SAFETY MEASURES IN PLACE, CALL LIGHT WITHIN REACH. WILL CONTINUE TO MONITOR.
[2018-12-05 08:00] VITALS: BP 126/84
[2018-12-05] MEDS: LACTOBACILLUS RHAMNOSUS GG 1 EACH CAP PO SCH (09:00)
[2018-12-05] MEDS: DULoxetine 30 MG CAPDR PO SCH ×2 (09:00→13:27)
[2018-12-05] MEDS: BLOOD GLUCOSE MONITORING 1 DEV DEV FS SCH ×2 (09:05→20:23)
[2018-12-05] MEDS: VANCOMYCIN 750 MG in DEXTROSE 5% 250 ML IV SCH (09:13)
--- NOTE | 2018-12-05 09:26 | NUR ---
PATIENT COMPLAINS OF PAIN. DILAUDID GIVEN AT THIS TIME. PATIENT REFUSED OTHER SCHEDULED MEDICATIONS DUE. IV ANTIBIOTICS DUE GIVEN. WILL CONTINUE TO MONITOR.
--- NOTE | 2018-12-05 11:00 | NUR ---
PATIENT LYING DOWN IN BED. REFUSES TO BE TURNED. CONDITION UNCHANGED. WILL CONTINUE TO MONITOR.
[2018-12-05 12:23] LABS: ANION GAP 14.4 (8-16); CARBON DIOXIDE 22.5 mmol/L (21-32); CREATININE 0.8 mg/dL (0.7-1.3); POTASSIUM 3.9 mmol/L (3.5-5.1)
[2018-12-05 12:31] LABS: MAGNESIUM 1.9 mg/dL (1.8-2.4); PHOSPHORUS 5.2 mg/dL (2.5-4.9)
--- NOTE | 2018-12-05 13:11 | NUR ---
12/05/18 RD FOLLOW UP COMPLETED PLEASE REFER TO NUTRITION PROGRESS NOTE UNDER CARE ACTIVITY FOR ESTIMATED NUTRITION NEEDS. 1. RECOMMEND INCREASING TPN INFUSION WHEN MEDICALLY APPROPRIATE TO MEET75% OF ESTIMATED NEEDS 2. CONTINUE SOFT DIET TOLERATED WITH SUPPLEMENTS AND FOOD BROUGHT FROM HOME IF APPROPRIATE PER MD 3. CONTINUE RODRIGUEZ BID FOR WOUND HEALING. 4. ENCOURAGE INCREASING PO INTAKE 5. RD WILL FOLLOW UP 2-3 DAYS, HIGH RISKD RECOMMENDATIONS: JOSE ROSALES RD
--- NOTE | 2018-12-05 15:40 | NUR ---
PATIENT LYING DOWN IN BED. MOTHER AT BESIDE. NO DISTRESS NOTED. CONDITION UNCHANGED. DR. CAICEDO TALKED TO PATIENT AND MOTHER ABOUT DEBRIDEMENT SURGERY TOMORROW. OBTAINED CONSENT FROM PATIENT AND MOTHER. WILL CONTINUE TO MONITOR.
[2018-12-05 16:00] VITALS: BP 108/63
--- NOTE | 2018-12-05 17:30 | NUR ---
PATIENT LYING DOWN IN BED WATCHING TV. NO DISTRESS NOTED. CONDITION UNCHANGED. WILL CONTINUE TO MONITOR.
--- NOTE | 2018-12-05 19:17 | NUR ---
GAVE REPORT TO ISSUER NURSE FOR CONTINUITY OF CARE. PATIENT IN STABLE CONDITION.
--- NOTE | 2018-12-05 19:18 | NUR ---
REPORT RECEIVED FROM AM NURSE AT BEDSIDE. PT IN STABLE CONDITION. AAOX4. INTRODUCED SELF TO PT. BOARD UPDATED. PT HAS COMPLAINTS OF PAIN. WILL MEDICATE. NO SOB. AFEBRILE. PT IS BEDBOUND. PT HAS COLOSTOMY. IV SITE L UA PICC DOUBLE LUMEN RUNNING NS@10ML/HR AND TPN@70ML/HR PATENT AND INTACT. CVP DRESSING CHANGE TO BE DONE TODAY. SKIN WARM, DRY, AND NOT INTACT DUE TO MULTIPLE WOUNDS. SEE WOUND ASSESSMENT. BED LOCKED IN LOW POSITION. CALL CONN WITHIN REACH. SAFETY PRECAUTION IN PLACE. ALL NEEDS MET AT THIS TIME.
--- NOTE | 2018-12-05 19:50 | NUR ---
DILAUDID GIVEN FOR 10/10 GENERALIZED PAIN. PT TOLERATED WELL.
[2018-12-05] MEDS: MULTIVITAMIN-12 10 ML in DEXTROSE 50% 760 ML, AMINO ACIDS 8.5% 760 ML, FAT EMULSION 20%... IV SCH ×4 (20:13)
--- NOTE | 2018-12-05 20:13 | NUR ---
NEURONTIN GIVEN PO. TPN HUNG AND RUNNING. ZOFRAN GIVEN FOR NAUSEA/VOMITING. BS 81. NO INSULIN COVERAGE NEEDED.
--- NOTE | 2018-12-05 21:45 | NUR ---
WATCHING IN BED WITH MOTHER AT BEDSIDE WATCHING TV. NO S/S OF DISTRESS NOTED. WILL CONTINUE TO MONITOR.
--- NOTE | 2018-12-05 22:53 | NUR ---
DILAUDID GIVEN FOR 10/10 GENERALIZED PAIN. PT TOLERATED WELL.
[2018-12-06] VITALS: BP 96/63
--- NOTE | 2018-12-06 01:13 | NUR ---
PT IN BED AWAKE AND ALERT WATCHING TV. NO S/S OF DISTRESS NOTED. WILL CONTINUE TO MONITOR.
[2018-12-06] MEDS: HYDROmorphone PFS 2 MG/ML SYR IVP PRN ×7 (02:26→22:13)
--- NOTE | 2018-12-06 02:26 | NUR ---
DILAUDID GIVEN FOR 10/10 GENERALIZED PAIN. PT TOLERATED WELL.
--- NOTE | 2018-12-06 02:45 | NUR ---
CENTRAL LINE DRESSING CHANGED.
--- NOTE | 2018-12-06 04:30 | NUR ---
PT REFUSED NEURONTIN.
[2018-12-06] MEDS: GABAPENTIN 100 MG CAP PO SCH ×3 (04:46→20:53)
--- NOTE | 2018-12-06 05:45 | NUR ---
DILAUDID GIVEN FOR 10/10 GENERALIZED PAIN. PT TOLERATED WELL.
--- NOTE | 2018-12-06 07:15 | NUR ---
Received report from pm nurse Migue. Pt resting in bed, no signs of distress. Call light within reach.
[2018-12-06 07:53] LABS: ANION GAP 15.7 (8-16); CARBON DIOXIDE 22.4 mmol/L (21-32); CREATININE 0.9 mg/dL (0.7-1.3); POTASSIUM 4.1 mmol/L (3.5-5.1)
[2018-12-06 07:59] LABS: BASOPHILS # (AUTO) 0.1 K/uL (0.00-0.22); BASOPHILS % (AUTO) 0.7 % (0.0-2.0); EOSINOPHILS # (AUTO) 0.2 K/uL (0-0.4); EOSINOPHILS % (AUTO) 2.3 % (0.0-4.0); HEMATOCRIT 24.2 % (36-52); HEMOGLOBIN 7.9 g/dL (12.0-18.0); LYMPHOCYTES # (AUTO) 1.8 K/uL (2.0-11.5); LYMPHOCYTES % (AUTO) 20.1 % (20.5-51.1); MEAN CORPUSCULAR HEMOGLOBIN 30 pg (27-31); MEAN CORPUSCULAR HGB CONC 33 g/dL (33-37); MEAN CORPUSCULAR VOLUME 92.1 fL (80-94); MONOCYTES # (AUTO) 0.6 K/uL (0.8-1.0); MONOCYTES % (AUTO) 7.1 % (1.7-9.3); NEUTROPHILS # (AUTO) 6.3 K/uL (1.8-7.7); NEUTROPHILS % (AUTO) 69.8 % (42.2-75.2); PLATELET COUNT (AUTO) 463 K/uL (140-450); RED BLOOD CELL COUNT(AUTO) 2.63 MIL/uL (4.20-6.10); RED CELL DISTRIBUTION WIDTH 15.3 % (11.6-13.7)
[2018-12-06 08:00] VITALS: BP 103/66
--- NOTE | 2018-12-06 08:00 | NUR ---
Received call from OR informing nurse that debridement has been rescheduled by Dr Wilson to 12/07, pt may start soft diet again then NPO after midnight. Orders noted. Pt notified & agree with POC. Called [facility] to request breakfast tray.
--- NOTE | 2018-12-06 08:30 | NUR ---
Breakfast tray served to pt.
[2018-12-06] MEDS: DULoxetine 30 MG CAPDR PO SCH (09:07)
[2018-12-06] MEDS: LACTOBACILLUS RHAMNOSUS GG 1 EACH CAP PO SCH (09:07)
[2018-12-06] MEDS: BLOOD GLUCOSE MONITORING 1 DEV DEV FS SCH ×2 (09:14→20:57)
--- NOTE | 2018-12-06 09:45 | NUR ---
Offered to reposition pt for pressure relief. Pt refused & states he can do it himself. Observed pt able to pull self left & right using upper bed rails. Offered to check colostomy & change collection bag, pt refused & states "it's ok right now. I'll call you if it needs to be emptied." Call light within reach.
--- NOTE | 2018-12-06 10:15 | NUR ---
Dr. Adam at bedside to see pt. Notified of Hgb 7.9, no new orders.
--- NOTE | 2018-12-06 13:00 | NUR ---
Pt refused wound assessment, BLE covered in blanket. Pt states he gets strong pains when he is moved, verbalized understanding of risks of infections & further skin breakdown if non-compliant with wound treatment. Will cont to monitor.
[2018-12-06 16:00] VITALS: BP 105/67
--- NOTE | 2018-12-06 18:11 | NUR ---
Pt called requesting for IV dilaudid. Informed pt that it's next due at 1858. Asked pt about his pain, pt states "it's fine, I can wait til then." Pt refused non-pharmacologic pain mgmt measures. Pt's mother at bedside. Call light within reach. Left upper arm PICC intact with ongoing TPN @ 70ml/h.
--- NOTE | 2018-12-06 19:05 | NUR ---
Report given to pm nurse Kiss. Pt resting in bed, no signs of distress, mother at bedside.
--- NOTE | 2018-12-06 19:21 | NUR ---
RECEIVED BEDSIDE REPORT FROM DAY SHIFT NURSE. PATIENT IS AWAKE, ALERT, AND COOPERATIVE. RESPIRATION EVEN UNLABORED ON ROOM AIR. SKIN IS WARM AND DRY. LEFT UPPER ARM PICC LINE NOTED. DENIES PAIN. COLOSTOMY BAG IN PLACE AND INTACT. MOM AT BEDSIDE. CONTACT PRECAUTION MAINTAINED. PLAN OF CARE WAS DISCUSSED. ALL SAFETY MEASURES IN PLACE. BED IS AT LOW POSITION. CALL LIGHT WITHIN REACH AND VERBALIZES ITS USE. WILL CONTINUE TO MONITOR.
[2018-12-06] MEDS: MULTIVITAMIN-12 10 ML in DEXTROSE 50% 760 ML, AMINO ACIDS 8.5% 760 ML, FAT EMULSION 20%... IV SCH ×4 (19:53)
--- NOTE | 2018-12-06 20:00 | NUR ---
INITIAL ASSESSMENT DONE. PATIENT REFUSED TO EMPTY OSTOMY BAG AND TO BE TURN. EDUCATED PATIENT REGARDING BEING NPO AFTERMIDNIGHT FOR DEBRIDEMENT. VERBALIZE UNDERSTANDING. WILL CONTINUE TO MONITOR.
--- NOTE | 2018-12-06 21:00 | NUR ---
ALL SCHEDULED MEDS WERE GIVEN PER ORDER. NO ASE NOTED. MOM AT BEDSIDE. WILL CONTINUE TO MONITOR.
--- NOTE | 2018-12-06 22:11 | NUR ---
PATIENT COMPLAINED OF PAIN 09/18. PRN PAIN MED ADMINISTERED PER ORDER. WILL CONTINUE TO MONITOR.
[2018-12-07] VITALS: BP 113/60
--- NOTE | 2018-12-07 | NUR ---
VITALS WERE TAKEN. PATIENT IN STABLE CONDITION. WILL CONTINUE TO MONITOR.
[2018-12-07] MEDS: HYDROmorphone PFS 2 MG/ML SYR IVP PRN ×8 (01:17→23:43)
--- NOTE | 2018-12-07 01:19 | NUR ---
PATIENT COMPLAINED OF 8/10 PAIN. PAIN MED ADMINISTERED PER ORDER. WILL CONTINUE TO MONITOR.
--- NOTE | 2018-12-07 02:40 | NUR ---
CHECKED ON PATIENT. PATIENT WATCHING TV RESPIRATION EVEN UNLABORED ON ROOM AIR. NO DISTRESS NOTED. WILL CONTINUE TO MONITOR.
--- NOTE | 2018-12-07 04:17 | NUR ---
PATIENT COMPLAINED OF 8/10 PAIN. PRN PAIN MED ADMINISTERED PER ORDER. WILL CONTINUE TO MONITOR.
[2018-12-07] MEDS: GABAPENTIN 100 MG CAP PO SCH ×3 (05:00→21:00)
--- NOTE | 2018-12-07 05:14 | NUR ---
PATIENT REFUSED NEUROTIN MEDICATION. EDUCATED ON THE RISK AND BENEFITS X2 STILL REFUSED. WILL CONTINUE TO MONITOR.
--- NOTE | 2018-12-07 07:21 | NUR ---
ENDORSED PATIENT TO DAY SHIFT NURSE. PATIENT IN STABLE CONDITION.
--- NOTE | 2018-12-07 07:23 | NUR ---
RECEIVED REPORT FROM CURRICULUM DEVELOPMENT SPECIALIST NURSE. PATIENT IS AWAKE, AND ALERT. PATIENT REQUEST PAIN MEDICATIONS. WILL MEDICATE PATIENT.
--- NOTE | 2018-12-07 07:31 | NUR ---
PAIN MEDICATION GIVEN FOR PAIN 09/18. PATIENT IS IN BED, VS STABLE. PICC LINE INTACT TO LEFT UA. TPN INFUSING AT 70ML/HR AND TOLERATING WELL. COLOSTOMY INTACT. NO ACUTE DISTRESS NOTED.
[2018-12-07 08:00] VITALS: BP 103/61
[2018-12-07 08:08] LABS: ANION GAP 14.3 (8-16); CARBON DIOXIDE 23.9 mmol/L (21-32); CREATININE 0.9 mg/dL (0.7-1.3); POTASSIUM 4.2 mmol/L (3.5-5.1)
[2018-12-07] MEDS: LACTOBACILLUS RHAMNOSUS GG 1 EACH CAP PO SCH (09:00)
[2018-12-07] MEDS: DULoxetine 30 MG CAPDR PO SCH (09:00)
[2018-12-07] MEDS: BLOOD GLUCOSE MONITORING 1 DEV DEV FS SCH ×2 (09:00→21:50)
--- NOTE | 2018-12-07 09:10 | NUR ---
PATIENT REFUSED AM MEDS. EDUCATED ABOUT THE IMPORTANCE OF MEDICATION COMPLIANCE AND ITS BENEFITS. VERBALIZED UNDERSTANDING.
[2018-12-07 10:26] LABS: MAGNESIUM 1.9 mg/dL (1.8-2.4)
--- NOTE | 2018-12-07 10:48 | NUR ---
PATIENT C/O 09/18 MEDICATED FOR PAIN. PATIENT IN BED, AWAKE AND ALERT. NO ACUTE DISTRESS NOTED.
--- NOTE | 2018-12-07 14:25 | NUR ---
PATIENT C/O PAIN 09/18. MEDICATED ORDERED. IV TPN STILL INFUSING AT 70ML/HR. TOLERATING WELL.
--- NOTE | 2018-12-07 15:15 | NUR ---
12/07/18 RD FOLLOW UP COMPLETED PLEASE REFER TO NUTRITION ASSESSMENT UNDER CARE ACTIVITY FOR ESTIMATED NUTRITIONAL NEEDS. 1. RECOMMEND INCREASING TPN INFUSION WHEN MEDICALLY APPROPRIATE TO MEET 75% OF ESTIMATED NEEDS 2. CONTINUE REGULAR DIET TOLERATED WITH SUPPLEMENTS AND FOOD BROUGHT FROM HOME IF APPROPRIATE PER MD 3. CONTINUE RODRIGUEZ BID 4. ENCOURAGE INCREASING PO INTAKE TO AT LEAST 1250 KCAL/DAY AND 40 GM OF PROTEIN/DAY 5. RD TO FOLLOW-UP 2-3 DAYS, HIGH RISK ALEXEI JOHNSTON, RD
--- NOTE | 2018-12-07 19:20 | NUR ---
RECEIVED BEDSIDE REPORT FROM DAY SHIFT NURSE. PATIENT IS AWAKE, ALERT, AND COOPERATIVE. RESPIRATION EVEN UNLABORED ON ROOM AIR. SKIN IS WARM AND DRY. LEFT UPPER ARM PICC LINE NOTED. DENIES PAIN. COLOSTOMY BAG IN PLACE AND INTACT. CONTACT PRECAUTION MAINTAINED. PLAN OF CARE WAS DISCUSSED. ALL SAFETY MEASURES IN PLACE. BED IS AT LOW POSITION. CALL LIGHT WITHIN REACH AND VERBALIZES ITS USE. WILL CONTINUE TO MONITOR.
--- NOTE | 2018-12-07 20:00 | NUR ---
INITIAL ASSESSMENT DONE. VITALS WERE TAKEN. PATIENT IN STABLE CONDITION. REFUSED TO BE TURN. REFUSED BAG TO BE EMPTIED. EDUCATED THE RISK AND BENEFITS X2 STILL REFUSED. WILL CONTINUE TO MONITOR.
--- NOTE | 2018-12-07 20:30 | NUR ---
PATIENT COMPLAINED OF PAIN 09/18. PRN PAIN MED ADMINISTERED PER ORDER. TPN BAG HANG. PATIENT TOLERATING IT WELL. WILL CONTINUE TO MONITOR.
[2018-12-07] MEDS: MULTIVITAMIN-12 10 ML in DEXTROSE 50% 760 ML, AMINO ACIDS 8.5% 760 ML, FAT EMULSION 20%... IV SCH ×4 (20:37)
--- NOTE | 2018-12-07 21:47 | NUR ---
PATIENT REFUSED NEURONTIN MEDICATION. EDUCATED THE RISK AND BENEFITS X2 STILL REFUSED.
[2018-12-07] MEDS: fentaNYL 0.1 MG/HR PATCH TD SCH (22:30)
--- NOTE | 2018-12-07 22:32 | NUR ---
REMOVED OLD PATCH OF FENTANYL. ADMINISTERED NEW ON TO THE LEFT UPPER CHEST.
--- NOTE | 2018-12-07 23:46 | NUR ---
PATIENT COMPLAINED OF PAIN 09/18. PRN PAIN MED ADMINISTERED PER ORDER. WILL CONTINUE TO MONITOR.
[2018-12-08] VITALS: BP 115/65
--- NOTE | 2018-12-08 00:11 | NUR ---
VITALS WERE TAKEN. PATIENT IN STABLE CONDITION. NO DISTRESS NOTED. WILL CONTINUE TO MONITOR.
--- NOTE | 2018-12-08 01:03 | NUR ---
PATIENT REFUSED DRESSING CHANGED AND TO BE TURN OR REPOSITION. EDUCATED THE RISK AND BENEFITS STILL REFUSED X2. WILL CONTINUE TO MONITOR.
--- NOTE | 2018-12-08 02:30 | NUR ---
CHECKED PATIENT. PATIENT SLEEPING RESPIRATION EVEN UNLABORED ON ROOM AIR. NO DISTRESS NOTED. WILL CONTINUE TO MONITOR.
[2018-12-08] MEDS: HYDROmorphone PFS 2 MG/ML SYR IVP PRN ×7 (02:45→22:06)
--- NOTE | 2018-12-08 02:48 | NUR ---
PATIENT COMPLAINED OF PAIN 10/19. PAIN MED ADMINISTERED PER ORDER. WILL CONTINUE TO MONITOR.
[2018-12-08] MEDS: GABAPENTIN 100 MG CAP PO SCH ×3 (05:00→21:00)
--- NOTE | 2018-12-08 05:22 | NUR ---
PATIENT REFUSED GABAPENTIN MEDICATION. EDUCATED THE RISK AND BENEFITS X2 STILL REFUSED. WILL ENDORSED TO DAY SHIFT NURSE TO NOTIFY MD THAT PATIENT KEEP REFUSING THIS MED.
--- NOTE | 2018-12-08 07:18 | NUR ---
ENDORSED PATIENT TO DAY SHIFT NURSE. PATIENT IN STABLE CONDITION.
--- NOTE | 2018-12-08 07:20 | NUR ---
RECEIVED BEDSIDE REPORT FROM CARAMEL CUTTER HELPER NURSE FOR CONTINUITY OF CARE. PATIENT IS AWAKE AND RESTING ON BED AT THIS TIME. PATIENT IS AAOX4. RESPIRATION EVEN AND UNLABORED ON RA. PATIENT STATED THAT HE HAS 5/10 PAIN NOW, WHICH IT'S TOLERABLE FOR HIM THIS TIME. NO SIGNS OF DISTRESS NOTED. PICC LINE ON ROSEM[place]IE, PATENT AND INTACT, INFUSING PER MD ORDER. PATIENT IS CONTINENT AND ABLE URANAL BY BEDSIDE. SKIN BURN NOTED. OSTOMY BAG IN PLACE. DISCUSSED PLAN OF CARE WITH PATIENT AND PATIENT VERBALIZED OK. CONTACT PRECAUTION IN PLACE AND SIGN POSTED. SAFETY MEASURES IN PLACE. BED IN LOW POSITION AND CALL LIGHT WITHIN REACH. WOUND BED ACTIVATED. INSTRUCTED PATIENT TO USE THE CALL LIGHT FOR ANY ASSISTANCE AND PATIENT WAS AWARE.
[2018-12-08 08:00] VITALS: BP 108/67
[2018-12-08] MEDS: LACTOBACILLUS RHAMNOSUS GG 1 EACH CAP PO SCH (09:00)
[2018-12-08] MEDS: DULoxetine 30 MG CAPDR PO SCH (09:00)
[2018-12-08] MEDS: BLOOD GLUCOSE MONITORING 1 DEV DEV FS SCH ×2 (09:12→21:52)
--- NOTE | 2018-12-08 09:12 | NUR ---
PATIENT COMPLAINED HE HAS 8/10 PAIN AROUND HIS L LEG,CHECKED BP AND RECEIVED BP 112/67, PULSE 106, SPO2 100% ON RA, ADMINISTERED PRN PAIN MED VIA IVP, PATIENT TOLERATED WELL. MED EDUCATION PROVIDED TO PATIENT. PATIENT REFUSED TO TAKE HIS PO AM MEDS THIS TIME AND MEDS EDUCATION PROVIDED, PATIENT INSISTED NOT WANTING TO TAKE THE MEDS. ENCOURAGED PATIENT TO EAT HIS BREAKFAST AND EDUCATED PATIENT THAT ADEQUATE INTAKE AND NUTRIENTS WILL PROMOTE WOUND HEALING, PATIENT VERBALIZED UNDERSTANDING. PATIENT IS DRINKING HIS JUICE. PATIENT IS AWAKE AND WATCHING TV ON BED AT THIS TIME. SAFETY MEASURES IN PLACE. BED IN LOW POSITION AND CALL LIGHT WITHIN REACH. WOUND BED ACTIVATED. INSTRUCTED PATIENT TO USE THE CALL LIGHT FOR ANY ASSISTANCE AND PATIENT WAS AWARE.
--- NOTE | 2018-12-08 11:15 | NUR ---
PATIENT REFUSED TO BE REPOSITION AND TURN, SKIN CARE EDUCATION PROVIDED TO PATIENT AND PATIENT INSISTED NOT WANTING TO BE REPOSITION. PATIENT TOOK A FEW BITES ON HIS TOASTS AND SAID "I WILL WORKING ON IT SLOWLY." PATIENT IS AWAKE AND WATCHING TV ON BED AT THIS TIME. SAFETY MEASURES IN PLACE. BED IN LOW POSITION AND CALL LIGHT WITHIN REACH. WOUND BED ACTIVATED. INSTRUCTED PATIENT TO USE THE CALL LIGHT FOR ANY ASSISTANCE AND PATIENT WAS AWARE.
--- NOTE | 2018-12-08 12:14 | NUR ---
PATIENT COMPLAINED HE HAS 8/10 PAIN AROUND HIS L LEG,CHECKED BP AND RECEIVED BP126/70, PULSE 121, SPO2 100% ON RA, ADMINISTERED PRN PAIN MED VIA IVP, PATIENT TOLERATED WELL. MED EDUCATION PROVIDED TO PATIENT. PATIENT IS AWAKE AND WATCHING TV ON BED AT THIS TIME. SAFETY MEASURES IN PLACE. BED IN LOW POSITION AND CALL LIGHT WITHIN REACH. WOUND BED ACTIVATED. INSTRUCTED PATIENT TO USE THE CALL LIGHT FOR ANY ASSISTANCE AND PATIENT WAS AWARE.
--- NOTE | 2018-12-08 13:05 | NUR ---
PATIENT REFUSED WOUND CARE AND REPOSITION. WOUND CARE EDUCATION PROVIDED TO PATIENT AND PATIENT VERBALIZED OK. PATIENT AWAKE AND RESTING ON BED AT THIS TIME. NO SIGNS OF DISTRESS NOTED. SAFETY MEASURES IN PLACE. BED IN LOW POSITION AND CALL LIGHT WITHIN REACH. WOUND BED ACTIVATED. INSTRUCTED PATIENT TO USE THE CALL LIGHT FOR ANY ASSISTANCE AND PATIENT WAS AWARE.
--- NOTE | 2018-12-08 13:50 | NUR ---
PATIENT REFUSED PO MED AND SAID " I DON'T WANT TO TAKE IT." MED EDUCATION PROVIDED TO PATIENT AND PATIENT INSISTED NOT WANT TO TAKE IT. PATIENT IS AWAKE AND WATCHING TV ON BED AT THIS TIME. SAFETY MEASURES IN PLACE. BED IN LOW POSITION AND CALL LIGHT WITHIN REACH. WOUND BED ACTIVATED. INSTRUCTED PATIENT TO USE THE CALL LIGHT FOR ANY ASSISTANCE AND PATIENT WAS AWARE.
--- NOTE | 2018-12-08 15:11 | NUR ---
PATIENT COMPLAINED HE HAS 8/10 PAIN AROUND HIS L LEG,CHECKED BP AND RECEIVED BP109/65, PULSE 112, SPO2 99% ON RA, ADMINISTERED PRN PAIN MED VIA IVP, PATIENT TOLERATED WELL. MED EDUCATION PROVIDED TO PATIENT. PATIENT IS AWAKE AND WATCHING TV ON BED AT THIS TIME. PATIENT REQUESTED FOR ICE CHIPS, PROVIDED. SAFETY MEASURES IN PLACE. BED IN LOW POSITION AND CALL LIGHT WITHIN REACH. WOUND BED ACTIVATED. INSTRUCTED PATIENT TO USE THE CALL LIGHT FOR ANY ASSISTANCE AND PATIENT WAS AWARE.
--- NOTE | 2018-12-08 15:40 | NUR ---
15:30 - Left a voicemail for patient's mother, aKrla Perez, to inform her about the conference call with [facility] and [facility]. Mother was instructed to go to the case management department at 11:30am to participate in the second part of the meeting (per IE request first 30min is for clinical discussion only). Dasia Pederson, ACSW Ext [phone]
[2018-12-08 16:00] VITALS: BP 110/65
--- NOTE | 2018-12-08 17:26 | NUR ---
PATIENT AWAKE AND RESTING ON BED AT THIS TIME. NO SIGNS OF DISTRESS NOTED. SAFETY MEASURES IN PLACE. BED IN LOW POSITION AND CALL LIGHT WITHIN REACH. WOUND BED ACTIVATED. INSTRUCTED PATIENT TO USE THE CALL LIGHT FOR ANY ASSISTANCE AND PATIENT WAS AWARE.
--- NOTE | 2018-12-08 18:24 | NUR ---
PATIENT COMPLAINED HE HAS 8/10 PAIN AROUND HIS L LEG,CHECKED BP AND RECEIVED BP115/68, PULSE 118, SPO2 99% ON RA, ADMINISTERED PRN PAIN MED VIA IVP, PATIENT TOLERATED WELL. MED EDUCATION PROVIDED TO PATIENT. PATIENT IS AWAKE AND WATCHING TV ON BED AT THIS TIME. SAFETY MEASURES IN PLACE. BED IN LOW POSITION AND CALL LIGHT WITHIN REACH. WOUND BED ACTIVATED. INSTRUCTED PATIENT TO USE THE CALL LIGHT FOR ANY ASSISTANCE AND PATIENT WAS AWARE.
--- NOTE | 2018-12-08 19:16 | NUR ---
RECIEVED PT AAOX4 , PICC LINE INTACT AND PATENT , WITH MULTIPLE CHRONIC WOUNDS , BEDBOUND , WITH COLOSTOMY BAG - INTACT ABD. SOFT , USES URINAL , ON TPN ASIDE ORAL INTAKE OF FOODS AND FLDS. - ON NPO POST MN - RE INSTRUCTED .DRESSINGS WITH MINIMAL STAIN OF BLOOD POST DEBRIBEMENT ON 12/05 - WITH BEARABLE PAIN AT THIS TIME . PLAN OF CARE DISCUSSED AND VERBALIZE UNDERSTANDING . CALL LIGHT WITHIN REACH . ON SAFETY / FALL PRECAUTION PROTOCOL - BED ALARM ON . MOTHER AT BEDSIDE . WILL CONT. TO MONITOR.
--- NOTE | 2018-12-08 19:16 | NUR ---
ENDORSED PATIENT AT BEDSIDE TO FILM SPLICER NURSE FOR CONTINUITY OF CARE. PATIENT AWAKE AND TALKING TO MOM AT THIS TIME. NO SIGNS OF DISTRESS NOTED.PATIENT IS IN STABLE CONDITION. SAFETY MEASURES IN PLACE. BED IN LOW POSITION AND CALL LIGHT WITHIN REACH. BED ALARM ACTIVATED.
[2018-12-08] MEDS: MULTIVITAMIN-12 10 ML in DEXTROSE 50% 760 ML, AMINO ACIDS 8.5% 760 ML, FAT EMULSION 20%... IV SCH ×4 (20:00)
--- NOTE | 2018-12-08 22:00 | NUR ---
MADE ROUNDS , BLOOD STAINED ON DRESSING CHECK NO PROGRESS IN SHAPE AND SIZE - SCANTY BLOOD STAIN ON DRESSING ON LEFT LEG - WILL CONTINUE TO MONITOR THE PROGRESS OF BLEEDING .CALL LIGHT WITHIN REACH.
[2018-12-09] VITALS: BP 111/60
--- NOTE | 2018-12-09 | NUR ---
ON NPO - FOR CHANGE OF DRESSING UNDER GEN. ANESTHESIA BY DR Vinita CAICEDO - WILL FF UP FOR CONSENT SIGNATURE BY PT.
[2018-12-09] MEDS: HYDROmorphone PFS 2 MG/ML SYR IVP PRN ×7 (02:07→21:22)
[2018-12-09] MEDS: BLOOD GLUCOSE MONITORING 1 DEV DEV FS SCH ×2 (03:00→08:29)
[2018-12-09] MEDS: GABAPENTIN 100 MG CAP PO SCH ×3 (05:00→21:00)
--- NOTE | 2018-12-09 07:10 | NUR ---
RECEIVED REPORT FROM THE [employer] SOURCE INTELLIGENCE NURSE AT BEDSIDE. PT IS AWAKE AND ORIENTED. TPN INFUSING. PICC LINE DOUBLE LUMEN IN MOLINA. PT IS BEDBOUND. SHEET AND BLANKET COVERING HIS BODY. REFUSED FOR ME TO LOOK UNDER THE SHEETS. WILL CONTINUE TO MONITOR PT. PT IS CURRENTLY NPO D/T PROCEDURE TODAY.
[2018-12-09 07:41] LABS: BASOPHILS % (AUTO) 0.4 % (0.0-2.0); EOSINOPHILS # (AUTO) 0.3 K/uL (0-0.4); EOSINOPHILS % (AUTO) 2.2 % (0.0-4.0); HEMOGLOBIN 9.4 g/dL (12.0-18.0); LYMPHOCYTES # (AUTO) 1.9 K/uL (2.0-11.5); LYMPHOCYTES % (AUTO) 16.4 % (20.5-51.1); MEAN CORPUSCULAR HEMOGLOBIN 29 pg (27-31); MEAN CORPUSCULAR HGB CONC 32 g/dL (33-37); MEAN CORPUSCULAR VOLUME 90.6 fL (80-94); MONOCYTES # (AUTO) 0.8 K/uL (0.8-1.0); MONOCYTES % (AUTO) 6.5 % (1.7-9.3); NEUTROPHILS # (AUTO) 8.6 K/uL (1.8-7.7); NEUTROPHILS % (AUTO) 74.5 % (42.2-75.2); PLATELET COUNT (AUTO) 521 K/uL (140-450); RED CELL DISTRIBUTION WIDTH 15.5 % (11.6-13.7); WHITE BLOOD COUNT (AUTO) 11.6 K/uL (4.8-10.8)
[2018-12-09 08:00] VITALS: BP 110/66
[2018-12-09] MEDS: LACTOBACILLUS RHAMNOSUS GG 1 EACH CAP PO SCH ×2 (08:20→08:30)
[2018-12-09] MEDS: DULoxetine 30 MG CAPDR PO SCH ×2 (08:20→08:30)
--- NOTE | 2018-12-09 08:31 | NUR ---
ADMINISTERED PAIN MED AND BS CHECK. 84. NO COVERAGE NEEDED. PT REFUSED ORAL MEDS, CYMBALTA AND LACTOBACILLUS. PER PT, IT MAKES HIM NAUSEATED. PT IS STILL NPO FOR DRESSING CHANGE AND POSSIBLE DEBRIDEMENT. WILL CONTINUE TO MONITOR PT.
--- NOTE | 2018-12-09 10:00 | NUR ---
RECEIVED A CALL FROM PT'S MOTHER AAMIR ,STATED SHE IS UNABLE TO COME FOR THE MEETING BUT HER DAUGHTER JIMMY ROBINS [phone] CAN JOIN THE MEETING ON BEHALF OF HER. CALLED [facility] SPOKE WITH KISHORE NOTIFIED HIM THAT MOTHER IS UNABLE TO COME TO MEETING , PER KISHORE AFTER HE DISCUSSED IT WITH THE MEDICAL TEAM THEY ARE NOT ALLOWING SISTER TO PARTICIPATE ON THE CONFERENCE CALL.CALLED JIMMY [phone] NOTIFIED HER , SHE AGREED ON THAT. CM TO FOLLOW.
--- NOTE | 2018-12-09 11:00 | NUR ---
THE MEETING GOT CANCELED BECAUSE, DR CAICEDO HAS A SURGERY AT 1100 AM ,AND CAN'T PARTICIPATE ON THE CONFERENCE CALL. NOTIFIED [facility] SPOKE WITH KISHORE THAT DR CAICEDO IS NOT AVAILABLE PER KISHORE DISCUSSED IT WITH THE MEDICAL TEAM AT [facility] AND DECIDED THIS MEETING IS A DISCUSSION BETWEEN TO , ALL MEDICAL QUESTIONS, AND PLAN HAS TO BE ANSWERED BY THE DR. KISHORE STATED WILL RESCHEDULE THE MEETING THROUGH DR CAICEDO'S OFFICE FOR HIS AVAILABLE TIME AND WILL NOTIFY [facility]. KATHRYN TO FOLLOW
--- NOTE | 2018-12-09 12:45 | NUR ---
2 OR NURSES CAME TO GET PT FOR DRESSING CHANGES AND POSSIBLE DEBRIDEMENT. PT IN STABLE CONDITION.
[2018-12-09] MEDS ORDERED: SEVOFLURANE 250 ML BTL INH ONE (13:40)
[2018-12-09] MEDS ORDERED: PROPOFOL 200 MG/20 ML VIAL IV ONE (13:40)
[2018-12-09] MEDS ORDERED: MIDAZOLAM 2 MG/2 ML VIAL ONE (13:50)
[2018-12-09] MEDS ORDERED: fentaNYL 0.05 MG/ML VIAL ONE (13:51)
[2018-12-09] MEDS ORDERED: HYDROmorphone PFS 2 MG/ML SYR ONE (14:19)
[2018-12-09] MEDS ORDERED: diphenhydrAMINE 50 MG/ML VIAL IVP PRN (14:20)
[2018-12-09] MEDS ORDERED: ONDANSETRON 4 MG/2 ML VIAL IVP PRN (14:20)
[2018-12-09] MEDS: LACTATED RINGERS 1,000 ML IV SCH ×2 (14:20→22:40)
[2018-12-09] MEDS ORDERED: MEPERIDINE 25 MG/ML SYR IVP PRN (14:20)
[2018-12-09] MEDS: HYDROmorphone 1 MG/ML AMP IVP PRN ×3 (14:32→14:52)
--- NOTE | 2018-12-09 15:05 | NUR ---
PT RETURNED FROM THE O/R. DRESSINGS WERE CHANGED. PT IN A LOT OF PAIN. PER OR NURSE, PT RECEIVED PAIN MED 1452, DILAUDID. PT REQUESTING MORE PAIN MED. NOTIFIED PT, NOT DUE AT THIS TIME. WILL CONTINUE WITH POST OP V/S.
--- NOTE | 2018-12-09 15:34 | NUR ---
ADMINISTERED DILAUDID 2MG. PT AT 10/10. HR AT 120. WILL CONTINUE TO MONITOR PT.
[2018-12-09 16:00] VITALS: BP 131/81
[2018-12-09] MEDS ORDERED: HYDROmorphone 1 MG/ML AMP IVP SCH (17:00)
--- NOTE | 2018-12-09 18:36 | NUR ---
PT IS IN EXCRUCIATING PAIN. DILAUDID IS NOT EFFECTIVE IN CONTROLLING HIS PAIN. CALLED DR CAICEDO REGARDING PAIN MANAGEMENT. 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 DON'T KNOW WHAT TO DO. PT CALLED MOM AND MOM CALLED WANTING FOR AN MD TO CALL HER REGARDING CARE. PAGED LYLA TURNER AT [facility]. AWAITING CALL.
[2018-12-09] MEDS: MULTIVITAMIN-12 10 ML in DEXTROSE 50% 760 ML, AMINO ACIDS 8.5% 760 ML, FAT EMULSION 20%... IV SCH ×4 (18:45)
--- NOTE | 2018-12-09 19:14 | NUR ---
RECIEVED PT AAOX4 , BEDBOUND , WITH CHRONIC MULTIPLE WOUNDS - S/P DRESSING CHANGED UNDER GA THIS AFTERNOON - WITH BEARABLE PAIN HE SAID AT THIS TIME , WITH DOUBLE LUMEN PICC LINE ON LEFT UPPER ARM - ON TPN , WITH COLOSTOMY BAG ,PT REFUSE CHANGE POSITION - NO FURTHER ASSESSMENT TO THE WOUNDS BECAUSE PT REFUSED TO EXPOSE IT . SISTER AT BEDSIDE .ON SAFETY /FALL PRECAUTION PROTOCOL - BED ALARM ON , PLAN OF CARE DISCUSSED AND VERBALIZE UNDERSTANDING -CALL LIGHT WITHIN REACH. WILL CONT. TO MONITOR.
--- NOTE | 2018-12-09 19:14 | NUR ---
WILL ENDORSE TO CLINICAL SOCIAL WORK AIDE RN. STILL AWAITING DR GARCIA'S CALL FOR PAIN MANAGEMENT.
--- NOTE | 2018-12-09 19:48 | NUR ---
DR GARCIA CALL BACK - HE SAID KEEP THE SAME SCHEDULE FOR DILAUDID FOR PAIN.
--- NOTE | 2018-12-09 20:00 | NUR ---
PT SAID HE HAD FOOD INTAKE WHILE AGO .WILL MONITOR ANY UNTOWARD S/SXS.WAITING FOR FURTHER ORDERS.
--- NOTE | 2018-12-09 22:00 | NUR ---
MADE ROUNDS , NO SIGNS OF DISTRESS NOTED AT THIS TIME , WILL CONT. TO MONITOR.
[2018-12-10] VITALS: BP 115/74
[2018-12-10] MEDS: HYDROmorphone PFS 2 MG/ML SYR IVP PRN ×8 (00:18→22:06)
--- NOTE | 2018-12-10 00:18 | NUR ---
C/O PAIN HE RATED 8/10 , IRRITABLE AND CRYING - BP 115/74 , O2 SAT ,98% , MT 120 - IN PAIN - DILAUDID TIV GIVEN - WILL CONT. TO MONITOR , CALL LIGHT WITHIN REACH.
[2018-12-10] MEDS: GABAPENTIN 100 MG CAP PO SCH ×3 (05:00→20:04)
[2018-12-10] MEDS: LACTATED RINGERS 1,000 ML IV SCH (06:12)
--- NOTE | 2018-12-10 07:20 | NUR ---
ENDORSED TO AM SHIFT FOR FURTHER CARE AND MGT - INFORMED TO CALL THE AP FOR UPDATING THE ORAL FOOD INTAKE , ALTHOUGH ACCORDING TO PT. HE HAD FOOD INTAKE LAST NIGHT .
--- NOTE | 2018-12-10 07:49 | NUR ---
RECEIVED HAND OFF REPORT FROM PM RN PT APPEARS STABLE AND IN NO APPARENT DISTRESS. ALL SAFETY MEASURES ARE IN PLACE WILL CONTINUE TO MONITOR
[2018-12-10 08:32] VITALS: BP 114/72
[2018-12-10] MEDS: BLOOD GLUCOSE MONITORING 1 DEV DEV FS SCH ×2 (09:00→20:04)
[2018-12-10] MEDS: LACTOBACILLUS RHAMNOSUS GG 1 EACH CAP PO SCH (09:00)
[2018-12-10] MEDS: DULoxetine 30 MG CAPDR PO SCH (09:00)
--- NOTE | 2018-12-10 10:00 | NUR ---
ADMINISTERED PT PAIN MEDICATION PRN FOR PAIN PER ORDERS. FINGERSTICK GLUCOSE 93 PT AWAKE IN BED PT APPEARS STABLE AND IN NO APPARENT DISTRESS. ALL SAFETY MEASURES ARE IN PLACE. WILL CONTINUE TO MONITOR
--- NOTE | 2018-12-10 10:36 | NUR ---
FREQUENT ROUNDING ON PT PT APPEARS STABLE AND IN NO APPARENT DISTRESS. ALL SAFETY MEASURES ARE IN PLACE WILL CONTINUE TO MONITOR
--- NOTE | 2018-12-10 12:35 | NUR ---
FREQUENT ROUNDING ON PT PT APPEARS STABLE AND IN NO APPARENT DISTRESS. ALL SAFETY MEASURES ARE IN PLACE. PT REFUSED REPOSITIONING. PT REFUSED COLOSTOMY CHANGE. PT REFUSED WOUND DRESSING CHANGE, INFORMED PT OF ALL RISKS FACTORS OF REFUSING. WILL CONTINUE TO MONITOR PT
--- NOTE | 2018-12-10 13:55 | NUR ---
12/10/18 RD FOLLOW UP COMPLETED. PLEASE REFER TO NUTRITION ASSESSMENT UNDER CARE ACTIVITY FOR ESTIMATED NUTRITIONAL NEEDS. 1. RECOMMEND INCREASING TPN INFUSION WHEN MEDICALLY APPROPRIATE TO MEET 75% OF ESTIMATED NEEDS 2. CONTINUE REGULAR DIET TOLERATED WITH SUPPLEMENTS AND FOOD BROUGHT FROM HOME IF APPROPRIATE PER MD 3. CONTINUE RODRIGUEZ BID 4. ENCOURAGE INCREASING PO INTAKE TO AT LEAST 1250 KCAL/DAY AND 40 GM OF PROTEIN/DAY 5. RD TO FOLLOW-UP 2-3 DAYS, HIGH RISK MEI LINDSAY, RD
[2018-12-10 16:34] VITALS: BP 112/76
--- NOTE | 2018-12-10 19:23 | NUR ---
ENDORSED PT TO PM RN PT AWAKE IN BED PT APPEARS STABLE AND IN NO APPARENT DISTRESS. ALL SAFETY MEASURES ARE IN PLACE. TPN INFUSING PT HAS LEFT UPPER ARM DOUBLE LUMEN PICC LINE. PT HAS COLOSTOMY PT REFUSED CHANGING OF COLOSTOMY. PT REFUSED REPOSITIONING THROUGHOUT THE SHIFT.
--- NOTE | 2018-12-10 19:24 | NUR ---
RECEIVED BEDSIDE REPORT FROM DAY SHIFT NURSEKATIUSKA. PT AAOX4 , BEDBOUND , WITH CHRONIC MULTIPLE WOUNDS. DOUBLE LUMEN PICC LINE ON LEFT UPPER ARM - ON TPN , WITH COLOSTOMY BAG, PT REFUSE CHANGE POSITION - NO FURTHER ASSESSMENT TO THE WOUNDS BECAUSE PT REFUSED TO EXPOSE IT. ON SAFETY /FALL PRECAUTION IN PLACE. BED ALARM ON , PLAN OF CARE DISCUSSED AND VERBALIZE UNDERSTANDING. CALL LIGHT WITHIN REACH.
[2018-12-10] MEDS: MULTIVITAMIN-12 10 ML in DEXTROSE 50% 760 ML, AMINO ACIDS 8.5% 760 ML, FAT EMULSION 20%... IV SCH ×8 (20:00→20:03)
--- NOTE | 2018-12-10 20:04 | NUR ---
BS CHECKED, 114. NO INSULIN COVERAGE NEEDED. GIVEN TPN MD ORDERED. PT TOLERATED WELL. PT REFUSED GABAPENTIN. PT STATES IT MAKES HIM SICK. EXPLAINED BENEFIT AND RISK 3TIMES, PT STILL REFUSED. WILL CONTINUE TO MONITOR.
--- NOTE | 2018-12-10 21:07 | NUR ---
FENTANYL PATCH WILL BE IN 2229. CALLED AND RECEIVED RENEW ORDERED.
[2018-12-10] MEDS: fentaNYL 0.1 MG/HR PATCH TD SCH (22:15)
--- NOTE | 2018-12-10 22:15 | NUR ---
PT C/O 10/19 PAIN. GIVEN DILAUDID MD ORDERED. PREVIOUS FENTANYL PATCH , REMOVED THE PREVIOUS ONE FROM LEFT UPPER CHEST AND APPLIED NEW FENTANYL PATCH ON RIGHT UPPER CHEST MD ORDERED. PT TOLERATED WELL. WILL CONTINUE TO MONITOR.
[2018-12-11] VITALS: BP 111/63
--- NOTE | 2018-12-11 | NUR ---
CHECKED VS, WITHIN PT'S BASELINE. WILL CONTINUE TO MONITOR.
[2018-12-11] MEDS: HYDROmorphone PFS 2 MG/ML SYR IVP PRN ×8 (01:04→22:34)
--- NOTE | 2018-12-11 01:04 | NUR ---
PT C/O PAIN 09/18, GIVEN DILAUDID MD ORDERED. PT TOLERATED WELL.
[2018-12-11] MEDS: GABAPENTIN 100 MG CAP PO SCH (04:02)
--- NOTE | 2018-12-11 04:03 | NUR ---
PT C/O 09/18 PAIN, GIVEN DILAUDID MD ORDERED. PT TOLERATED WELL. PT REFUSED TO TAKE GABAPENTIN. PT STATED IT MADE HIM SICK. EXPLAIN BENEFIT AND RISK 3TIMES, PT STILL REFUSED.
--- NOTE | 2018-12-11 07:02 | NUR ---
PT C/O 09/18 PAIN, GIVEN DILAUDID MD ORDERED. PT TOLERATED WELL. EMPTY COLOSTOMY BAG. BROWN SOFT, FORMED STOOL NOTED.
--- NOTE | 2018-12-11 07:20 | NUR ---
Received report from pm nurse Fareed. Pt resting in bed, watching videos no his tablet, no signs of distress. Call light within reach. Left upper arm PICC in place with ongoing TPN @ 70ml/h.
[2018-12-11 08:00] VITALS: BP 109/73
[2018-12-11] MEDS: DULoxetine 30 MG CAPDR PO SCH (09:00)
[2018-12-11] MEDS: LACTOBACILLUS RHAMNOSUS GG 1 EACH CAP PO SCH (09:00)
[2018-12-11] MEDS ORDERED: INSULIN LISPRO SLIDING SCALE 100 UNITS/ML VIAL SUBQ PRN (09:30)
[2018-12-11] MEDS: BLOOD GLUCOSE MONITORING 1 DEV DEV FS SCH ×2 (09:32→20:36)
--- NOTE | 2018-12-11 13:00 | NUR ---
Pt refused wound dressing assessment, BLE covered with clean dry blanket. Pt states "it's ok right now." Pt also refused assistance with repositioning & states he can pulle himself left and right periodically during the day. Verbalized understanding of risks for infection and further skin breakdown d/t noncompliance with wound care regimen. Left upper arm PICC intact with ongoing TPN @ 70ml/h. Call light within reach.
--- NOTE | 2018-12-11 14:30 | NUR ---
Pt requesting for hot sauce for his chips & mustard for his sandwich. Items provided as requested. Pt denies any discomfort at this time, no signs of distress. Call light within reach.
[2018-12-11 16:00] VITALS: BP 110/68
--- NOTE | 2018-12-11 19:10 | NUR ---
Report given to pm nurse Abhishek. Pt in no distress. Mother at bedside.
--- NOTE | 2018-12-11 19:11 | NUR ---
Received endorsement from AM shift RN; patient A/Ox4, able to make needs known, Upper Sorbian speaking, bedbound. Patient is talking with mother Saray; introduced self, updated board. No SOB or distress noted, on room air. On contact precautions for MDRO wounds; observed and maintained. IV site on left upper arm PICC line, double lumen, running TPN at 70mL/hr. 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 Bed in the lowest position, call light within reach. Initial assessment done. Will continue to monitor.
[2018-12-11] MEDS: MULTIVITAMIN-12 10 ML in DEXTROSE 50% 760 ML, AMINO ACIDS 8.5% 760 ML, FAT EMULSION 20%... IV SCH ×4 (19:30)
--- NOTE | 2018-12-11 21:10 | NUR ---
Due meds given, tolerated well.
--- NOTE | 2018-12-11 23:05 | NUR ---
Vitals taken, no distress noted.
[2018-12-12] VITALS: BP 106/68
--- NOTE | 2018-12-12 00:48 | NUR ---
Patient refused wound care and repositioning. Risk of infection due to non-compliance explained, patient verbalized understanding.
[2018-12-12] MEDS: HYDROmorphone PFS 2 MG/ML SYR IVP PRN ×8 (01:43→21:32)
--- NOTE | 2018-12-12 02:30 | NUR ---
Checks made; no distress noted.
--- NOTE | 2018-12-12 04:30 | NUR ---
Rounds done; no distress noted.
--- NOTE | 2018-12-12 06:02 | NUR ---
Vitals stable, due meds given. Will endorse to AM shift RN for continuity of care.
--- NOTE | 2018-12-12 07:00 | NUR ---
RECEIVED REPORT FROM NIGHT RN. PATIENT IS SLEEPING. TPN INFUSING VIA PICC LINE DOUBLE LUMEN TO LEFT UA. ON ROOM AIR, WILL CONTINUE WITH PLAN OF CARE FOR THE DAY.
[2018-12-12 08:00] VITALS: BP 118/61
--- NOTE | 2018-12-12 09:00 | NUR ---
ADMINISTERED DILAUDID FOR PAIN 09/18. WILL RE-ASSESS PAIN AFTER ONE HOUR
[2018-12-12] MEDS: LACTOBACILLUS RHAMNOSUS GG 1 EACH CAP PO SCH (09:05)
[2018-12-12] MEDS: DULoxetine 30 MG CAPDR PO SCH (09:05)
[2018-12-12] MEDS: BLOOD GLUCOSE MONITORING 1 DEV DEV FS SCH ×2 (09:09→21:21)
--- NOTE | 2018-12-12 09:09 | NUR ---
ADMINISTERED MORNING MEDICATION TO PATIENT. PATIENTS BLOOD SUGAR IS 62 THIS MORNING, ENCOURAGED PATIENT TO DRINK JUICE TO BRING BLOOD SUGAR LEVELS UP. PATIENT VERBALIZED UNDERSTANDING.
[2018-12-12 09:45] LABS: BASOPHILS # (AUTO) 0.1 K/uL (0.00-0.22); BASOPHILS % (AUTO) 0.7 % (0.0-2.0); EOSINOPHILS # (AUTO) 0.4 K/uL (0-0.4); EOSINOPHILS % (AUTO) 3.8 % (0.0-4.0); HEMATOCRIT 27.6 % (36-52); HEMOGLOBIN 8.8 g/dL (12.0-18.0); LYMPHOCYTES # (AUTO) 1.3 K/uL (2.0-11.5); LYMPHOCYTES % (AUTO) 13.6 % (20.5-51.1); MEAN CORPUSCULAR HEMOGLOBIN 30 pg (27-31); MEAN CORPUSCULAR HGB CONC 32 g/dL (33-37); MEAN CORPUSCULAR VOLUME 92.4 fL (80-94); MONOCYTES # (AUTO) 0.8 K/uL (0.8-1.0); MONOCYTES % (AUTO) 8.1 % (1.7-9.3); NEUTROPHILS % (AUTO) 73.8 % (42.2-75.2); PLATELET COUNT (AUTO) 366 K/uL (140-450); RED BLOOD CELL COUNT(AUTO) 2.98 MIL/uL (4.20-6.10); RED CELL DISTRIBUTION WIDTH 15.1 % (11.6-13.7); WHITE BLOOD COUNT (AUTO) 9.4 K/uL (4.8-10.8)
[2018-12-12] MEDS: ONDANSETRON 4 MG/2 ML VIAL IVP PRN (10:29)
--- NOTE | 2018-12-12 10:37 | NUR ---
ADMINISTERED ZOFRAN FOR NAUSEA IVP.
[2018-12-12 10:52] LABS: ANION GAP 14.8 (8-16); CARBON DIOXIDE 25.4 mmol/L (21-32); CREATININE 0.9 mg/dL (0.7-1.3); POTASSIUM 4.2 mmol/L (3.5-5.1)
--- NOTE | 2018-12-12 12:19 | NUR ---
ADMINISTERED PAIN MEDICATION FOR PAIN 09/18. WILL RE ASSESS
--- NOTE | 2018-12-12 15:10 | NUR ---
MEDICATED PATIENT FOR PAIN 09/18. WILL RE ASSESS. PATIENT DID NOT TAKE CYMBALTA OR CULTURELLE FROM MORNING MEDICATION. PATIENT STATED TO FEEL NAUSEOUS AND THAT'S WHY HE REFUSED IT.
[2018-12-12 16:00] VITALS: BP 109/49
--- NOTE | 2018-12-12 18:00 | NUR ---
MEDICATED FOR PAIN 09/18
--- NOTE | 2018-12-12 18:31 | NUR ---
BEGAN NEW INFUSION OF TPN AT 70ML/HR. WILL ENDORSE PATIENT TO PALLIATIVE CARE PHYSICIAN FOR CONTINUITY OF CARE.
--- NOTE | 2018-12-12 19:15 | NUR ---
RECEIVED REPORT FORM DERREK RN DAYSHIFT NURSE AT BEDSIDE FOR CONTINUITY OF CARE, PT IN STABLE CONDITION.
--- NOTE | 2018-12-12 19:50 | NUR ---
PT ON WOUND BED NO S/S OF DISTRESS NOTED, PICC LINE ON LEFT UPPER ARM INTACT AND RUNNING TPN AT 70MLS/HR. COLOSTOMY BAG EMPTY AT THIS TIME. FAMILY AT BEDSIDE. PT DECLINED TO EAT THE MEAL BUT IS EATING CHIPS AND GATORADE. PT DECLINES TO BE TURNED AND REPOSITIONED. V/S FOLLOWS T 98.5 P 111 R 18 B/P 101/61 02 99% ON ROOM AIR. ALL FALLS AND CONTACT PRECAUTIONS IN PLACE. AND CALL CONN IN REACH.
[2018-12-12] MEDS: MULTIVITAMIN-12 10 ML in DEXTROSE 50% 760 ML, AMINO ACIDS 8.5% 760 ML, FAT EMULSION 20%... IV SCH ×4 (20:12)
--- NOTE | 2018-12-12 21:39 | NUR ---
PT FINGERSTICK IS 94, NO HUMALOG COVERAGE NEEDED AT THIS TIME. PT C/O 8/10 GENERALIZED PAIN, GIVEN PRN/IVP DILAUDID.
--- NOTE | 2018-12-12 22:00 | NUR ---
PT GIVEN SUPPLEMENTAL TURKEY SANDWICH AND ENCOURAGED TO EAT IT. PT SAID HE WAS ABOUT TO EAT SOME DINNER WHICH UNTIL THEN REMAINED UNTOUCHED. SANDWICH LEFT AT BEDSIDE.
[2018-12-13] VITALS: BP 97/58
[2018-12-13] MEDS: HYDROmorphone PFS 2 MG/ML SYR IVP PRN ×7 (00:42→20:47)
--- NOTE | 2018-12-13 00:57 | NUR ---
PT IN BED C/O 09/18 BREAKTHROUGH PAIN , HE WAS GIVEN PRN/IVP DILAUDID VIA LEFT UPPER PIC LINE TPN RUNNING AT 70 ORDERED. ALL FALLS AND CONTACT PRECAUTIONS OBSERVED. V/S FOLLOWS T 98.5 P 103 R 18 B/P 97/58 02 100% ON ROOM AIR.
--- NOTE | 2018-12-13 03:45 | NUR ---
T P C/O SEVERE PAIN IN WOUNDS GIVEN IVP /PRN DILAUDID. PT REFUSED TO BE TURNED DURING THE SHIFT. COULD NOT WEIGH PT DUE TO NOT BEING ABLE TO ZERO BED AND PT NOT WILLING TO CHANGE BEDS SO BED CAN BE ZEROED TO GET ACCURATE WEIGHT. PT ENCOURAGED TO EAT TURKEY SANDWICH WHICH IS HARDLY TOUCHED. VS FOLLOWS : T98.6 P 104 R 18 B/P 103/68 02 99% ON ROOM AIR.
[2018-12-13] MEDS: ONDANSETRON 4 MG/2 ML VIAL IVP PRN ×2 (05:13→09:51)
--- NOTE | 2018-12-13 05:15 | NUR ---
PT NOTED VOMITING SMALL AMOUNT AND ABOUT 100MLS OF REGURGITATION. PT GIVEN IVP/PRN ZOFRAN FOR NAUSEA AND VOMITING.
--- NOTE | 2018-12-13 06:00 | NUR ---
PT SAID HE HAD NO BM IN COLOSTOMY BAG LOOKED FULL OF GAS BUT LITTLE STOOL.
--- NOTE | 2018-12-13 07:24 | NUR ---
RECEIVED REPORT FROM TOOL MAKER APPRENTICE NURSE. PT AAOX4. RESPIRATIONS EVEN AND UNLABORED ON RA. NOTED LT UA PICC LINE, RUNNING IVF PER ORDER, DRESSING CLEAN, DRY AND INTACT. ACTIVE BS, SOFT ABD, COLOSTOMY BAG IN PLACE. PT ON FALL RISK PRECAUTIONS, SAFETY MEASURES IN PLACE, CALL LIGHT WITHIN REACH. REVIEWED POC WITH PT, PT VERBALIZED UNDERSTANDING, WILL CONTINUE TO REINFORCE POC.
[2018-12-13 08:00] VITALS: BP 136/64
[2018-12-13] MEDS: DULoxetine 30 MG CAPDR PO SCH (08:16)
--- NOTE | 2018-12-13 08:16 | NUR ---
PT'S VSS ARE STABLE. PT STATES "I JUST CHECKED IT, IT'S EMPTY" WHEN RN ASKED TO ASSESS HIS COLOSTOMY BAG TWICE. PT REFUSED BLOOD SUGAR CHECK AT THIS TIME, EXPLAINED TO PT THAT RN HAS TO MONITOR BLOOD SUGAR LEVEL TO PREVENT HYPO/HYPERGLYCEMIA, PER PT "YOU CAN CHECK IT THE NEXT TIME I GET MY PAIN MEDICATION, I JUST DON'T FEEL LIKE BEING POKED RIGHT NOW." PT SHAKES HEAD AND SAYS "NO" WHEN ASKED IF WE CAN TURN HIM AND ASSESS HIS WOUNDS, EXPLAINED RISKS AND BENEFITS BUT PT REFUSES. WILL CONTINUE TO REASSESS PT'S CONDITION, AND RE-ATTEMPT AT A LATER TIME.
[2018-12-13] MEDS: LACTOBACILLUS RHAMNOSUS GG 1 EACH CAP PO SCH (08:18)
--- NOTE | 2018-12-13 09:20 | NUR ---
PT GIVEN ASSISTANCE FOR SKIN CARE AND WET WASHCLOTHS TO CLEAN FACE. NOTED 1 EPISODE OF VOMITING, WHITE-COLORED VOMIT WITH RESIDUE, PT STATES "THAT'S FROM THE SANDWICH AND CHIPS EARLIER". INCREASED COOL AIR PER PT REQUEST. PT STATES, "I USUALLY VOMIT LIKE THIS WHEN THE ROOM GETS WARM." NOTIFIED PT THAT WOUND CARE NURSE IS HERE TODAY AND WE CAN ASSESS AND CHANGE WOUND DRESSING, BUT PT STILL REFUSES.
[2018-12-13] MEDS: BLOOD GLUCOSE MONITORING 1 DEV DEV FS SCH ×2 (09:51→20:47)
--- NOTE | 2018-12-13 11:30 | NUR ---
PT REPORTS NO VOMITING AFTER ZOFRAN WAS ADMINISTERED. WILL CONTINUE TO MONITOR.
--- NOTE | 2018-12-13 12:00 | NUR ---
NOTIFIED DR. GAO THAT PT VOMITED X2. NO NEW ORDERS RECEIVED AT THIS TIME.
--- NOTE | 2018-12-13 12:20 | NUR ---
GIVEN FULL CUP WITH ICE CHIPS PER PT REQUEST. GIVEN LUNCH TRAY. PT FINISHED 15% OF BREAKFAST TRAY, STATING "I ATE THE FRUIT CUP, PART OF A SANDWICH AND CHIPS."
--- NOTE | 2018-12-13 12:49 | NUR ---
ADMINISTERED DILAUDID PER ORDER FOR LEVEL 9/10 PAIN TO BACK AND LT LEG/HIP, PT IS AWARE OF INDICATIONS AND POTENTIAL SIDE EFFECTS. PT REFUSES FOR NURSE TO CHECK COLOSTOMY BAG, AND STATES "IT'S STILL THE SAME, EMPTY". RN OFFERED TO TURN AND ASSESS WOUNDS BUT PT SHAKES HEAD AND FINGER AND SAYS "NO".
--- NOTE | 2018-12-13 13:34 | NUR ---
ENDORSED PT TO GÉNESIS ROBERTSON, GIVEN SBAR REPORT. PT IS AWARE AND HAS NO SIGNS OF DISTRESS AT THIS TIME.
--- NOTE | 2018-12-13 13:36 | NUR ---
RECEIVED PT FROM LAURA FOR CONTINUITY OF CARE. PT IS IN STABLE CONDITION AT THIS TIME. ALL NEEDS MET. WILL ROUND FREQUENTLY ON PT. BED IN LOW POSITION, CALL LIGHT WITHIN REACH.
--- NOTE | 2018-12-13 15:47 | NUR ---
PT RESTING IN BED. ALL NEEDS MET. PT REFUSING TO HAVE COLOSTOMY BAG CHECKED AT THIS TIME. PT ALSO REFUSING TO BE TURNED AND CHANGED. EXPLAINED TO THE PT THE IMPORTANCE OF TURING AND CHANGING IN ORDER TO PREVENT FURTHER PRESSURE ULCERS. PT VERBALIZED UNDERSTANDING BUT REFUSED AGAIN. WILL CONTINUE TO ROUND ON PT AND TRY AGAIN LATER.
[2018-12-13 16:00] VITALS: BP 110/60
--- NOTE | 2018-12-13 17:34 | NUR ---
PT RESTING IN BED. ALL NEEDS MET. WILL CONTINUE TO ROUND FREQUENTLY ON PT. BED IN LOW POSITION, CALL LIGHT WITHIN REACH.
--- NOTE | 2018-12-13 19:21 | NUR ---
ENDORSED PT TO HERBICIDE SPRAYER FOR CONTINUITY OF CARE. PT IN STABLE CONDITION AT THIS TIME.
--- NOTE | 2018-12-13 19:25 | NUR ---
RECEIVED FROM AM RN IN BED PT. SLEEPING AT THIS TIME. WILL PHYS ASST [employer] ARCHITECT CARE. PT. ABLE TO USE CALL LIGHT FOR ANY HELP HE NEEDS. ABLE TO VERBALIZE NEEDS WELL. MADE SURE CALL LIGHT WITH IN REACH.
[2018-12-13 20:37] VITALS: BP 116/62
[2018-12-13] MEDS: MULTIVITAMIN-12 10 ML in DEXTROSE 50% 760 ML, AMINO ACIDS 8.5% 760 ML, FAT EMULSION 20%... IV SCH ×4 (20:48)
--- NOTE | 2018-12-13 20:59 | NUR ---
BLOOD SUGAR DONE PER FINGERSTICK 65 MG/DL. ALERT AND ORIENTED. STATED HE WILL JUST DRINK HIS GATORADE. REFUSED ANY THING ELSE. REQUESTED ONLY FOR ICE. PROVIDED REQUESTED. REMINDED TO DRINK MORE OF HIS GATORADE RT BLOOD SUGAR AT 65. "OK. I KNOW"
[2018-12-13] MEDS: fentaNYL 0.1 MG/HR PATCH TD SCH (22:34)
[2018-12-14 00:22] VITALS: BP 111/56
--- NOTE | 2018-12-14 00:24 | NUR ---
PT. REQUESTED FOR DILAUDID IVP RT GENERALIZED PAIN . ABLE TO VERBALIZE NEEDS WELL. VERY MUCH AWAKE AT THIS TIME. VITAL SIGNS TAKEN. WNL. ISOLATION PRECAUTIONS OBSERVED.
[2018-12-14] MEDS: HYDROmorphone PFS 2 MG/ML SYR IVP PRN ×7 (00:28→20:57)
--- NOTE | 2018-12-14 03:23 | NUR ---
PT. AWAKE AGAIN AND REQUESTED FOR DILAUDID IVP. MEDICATED REQUESTED.
--- NOTE | 2018-12-14 06:25 | NUR ---
SLEEPING AT THIS TIME. PT. REFUSED TO BE TURNED THIS SHIFT. EXPLAINED THE NEED FOR IT. "NO"
[2018-12-14 06:30] VITALS: BP 121/60
--- NOTE | 2018-12-14 06:32 | NUR ---
WOKE UP AND ASKED FOR PAIN RELIEVER . WILL MEDICATE REQUESTED.
--- NOTE | 2018-12-14 07:10 | NUR ---
Report received from nurse Mascorro. Pt sleeping, appears comfortable. Receiving TPN per order, contact and fall precautions in place. Call light and personal items within easy reach, no s/s of acute distress noted at this time, will continue to monitor.
[2018-12-14 08:00] VITALS: BP 99/61
[2018-12-14] MEDS: DULoxetine 30 MG CAPDR PO SCH (09:00)
[2018-12-14] MEDS: LACTOBACILLUS RHAMNOSUS GG 1 EACH CAP PO SCH (09:00)
[2018-12-14] MEDS: BLOOD GLUCOSE MONITORING 1 DEV DEV FS SCH ×2 (09:50→19:54)
--- NOTE | 2018-12-14 09:50 | NUR ---
Pt A/O able to communicate needs, pt received pain medication per order. No additional complaints at this time. Pt refuses repositioning, education provided on pressure injury prevention. Fall and safety precaution in place, Call light and personal items within easy reach, will continue to monitor.
--- NOTE | 2018-12-14 12:00 | NUR ---
Pt sleeping, refused turning. Receiving TPN per order, contact and fall precautions remain in place. Call light and personal items within easy reach, no s/s of acute distress noted at this time, will continue to monitor.
--- NOTE | 2018-12-14 15:00 | NUR ---
Pt remains awake a/o able to communicate needs. Family at bedside. Pt watching tv, appears comfortable,states pain is decreasing and is tolerable at this time. No s/s of acute distress noted at this time, contact, fall and safety precautions remain in place. Call light and personal items within easy reach, will continue to monitor.
[2018-12-14 16:00] VITALS: BP 114/69
--- NOTE | 2018-12-14 16:00 | NUR ---
Pt remains awake a/o able to communicate needs. Family at bedside. temp elevated, refusing prn for temp, extra blankets removes, room temp turned down, cooling measures instituted, will reassess.
--- NOTE | 2018-12-14 18:12 | NUR ---
Pt remains awake a/o able to communicate needs. Family at bedside. Pt watching videos on tablet, states pain is decreasing and is tolerable at this time. No s/s of acute distress noted at this time, Contact, Fall and safety precaution in place. Call light and personal items within easy reach, will continue to monitor.
--- NOTE | 2018-12-14 19:25 | NUR ---
Pt remains awake a/o able to communicate needs. Pt comfortable at this time, family remains at bedside, no s/s of acute distress noted at this time. Contact and fall precautions maintained in place. Call light and personal items within easy reach, no s/s of acute distress noted at this time. Report endorsed to oncoming nurse
--- NOTE | 2018-12-14 19:26 | NUR ---
RECEIVED BEDSIDE REPORT FROM DAY RN. PT IS AAOX4 ON ROOM AIR. PT IS LAYING IN BED COMFORTABLY WATCHING VIDEOS ON Ipad. DX CHRONIC WOUNDS PT REFUSED PHYSICAL ASSESSMENT. DRESSING CHANGE LAST DONE ON THURSDAY UNABLE TO ASSESS DRESSING. HAS COLOSTOMY BAG. R BKA. PICC LINE ON MOLINA TPN INFUSING PER ORDERS. IS ON FALL AND CONTACT PRECAUTION. CALL LIGHT IS WITHIN REACH. POC DISCUSSED WITH PT AND MOTHER. WILL ROUND FREQUENTLY.
[2018-12-14] MEDS: ONDANSETRON 4 MG/2 ML VIAL IVP PRN (19:49)
[2018-12-14] MEDS: MULTIVITAMIN-12 10 ML in DEXTROSE 50% 760 ML, AMINO ACIDS 8.5% 760 ML, FAT EMULSION 20%... IV SCH ×4 (19:54)
--- NOTE | 2018-12-14 19:54 | NUR ---
ADMINISTERED ZOFRAN FOR CC NAUSEA. BLOOD SUGAR CHECK 84. PT WITH DINNER AT BEDSIDE. NEW BAG AND TUBING OF TPN STARTED. PT TOLERATED WELL. CALL LIGHT IS WITHIN REACH.
--- NOTE | 2018-12-14 20:57 | NUR ---
ADMINISTERED DILAUDID PRN FOR GEN PAIN 10/19. PT TOLERATED WELL. CALL LIGHT IS WITHIN REACH.
--- NOTE | 2018-12-14 22:30 | NUR ---
PATIENT IS RESTING COMFORTABLY IN BED WATCHING TV. CALL LIGHT IS WITHIN REACH. PT IS REFUSING TO BE TURN EXPLAINED IMPORTANCE TO PREVENT WORSENING OF ULCERS AND TO AID WITH HEALING. VERBALIZED UNDERSTANDING BUT STILL REFUSING.
[2018-12-15] VITALS: BP 106/57
[2018-12-15] MEDS: HYDROmorphone PFS 2 MG/ML SYR IVP PRN ×7 (00:05→21:59)
--- NOTE | 2018-12-15 00:05 | NUR ---
VITAL SIGNS ARE WITHIN NORMAL LIMITS. ADMINISTERED ZOFRAN FOR NAUSEA AND DILAUDID IVP FOR GEN PAIN 10/19. PT REFUSED TO BE TURN. EXPLAINED IMPORTANCE TO PREVENT WORSENING OF ULCERS AND TO AID WITH HEALING VERBALIZED UNDERSTANDING BUT STILL REFUSING.
[2018-12-15] MEDS: ONDANSETRON 4 MG/2 ML VIAL IVP PRN ×2 (00:09→09:19)
--- NOTE | 2018-12-15 01:00 | NUR ---
PATIENT REFUSED ASSESSMENT OF WOUND. EDUCATED WILL ASSESS FOR DRAINAGE S/S OF INFECTION SUCH FOUL ODOR. DRESSING CHANGE WILL BE IN OR. PT REFUSED.
--- NOTE | 2018-12-15 02:15 | NUR ---
PATIENT IS SLEEPING COMFORTABLY IN BED. NO S/S OF DISTRESS. WILL CONTINUE TO MONITOR.
--- NOTE | 2018-12-15 04:00 | NUR ---
PT RESTING COMFORTABLY IN BED. NO S/S OF DISTRESS. CALL LIGHT IS WITHIN REACH.
--- NOTE | 2018-12-15 06:25 | NUR ---
RECEIVED CALL FROM DR CAICEDO TO OBTAIN CONSENT FOR DRESSING CHANGE AND KEEP PT NPO.
--- NOTE | 2018-12-15 06:40 | NUR ---
PATIENT SIGN CONSENT FOR DRESSING CHANGE UNDER ANESTHESIA. VERBALIZED UNDERSTANDING TO REMAIN NPO. ADMINISTERED DILAUDID IVP FOR GEN PAIN OF 8/10. CALL LIGHT IS WITHIN REACH. WILL CONTINUE TO MONITOR.
--- NOTE | 2018-12-15 07:20 | NUR ---
GAVE BEDSIDE REPORT TO DAY RN. PT ENDORSED IN STABLE CONDITION.
--- NOTE | 2018-12-15 07:22 | NUR ---
RECEIVED REPORT FROM SOFT MUD MOLDER NURSE. PATIENT IN BED, AWAKE AND VERBALLY RESPONSIVE. RESPIRATION EVEN AND UNLABORED. PICC LINE INTACT AND PATENT TO MOLINA. TPN INFUSING AT 70ML/HR. TOLERATING WELL. WILL CONTINUE TO MONITOR.
[2018-12-15 08:00] VITALS: BP 111/58
[2018-12-15] MEDS: BLOOD GLUCOSE MONITORING 1 DEV DEV FS SCH ×2 (09:00→20:30)
[2018-12-15] MEDS: LACTOBACILLUS RHAMNOSUS GG 1 EACH CAP PO SCH (09:00)
[2018-12-15] MEDS: DULoxetine 30 MG CAPDR PO SCH (09:00)
--- NOTE | 2018-12-15 09:27 | NUR ---
PATIENT REFUSED, ASSESSMENT, AND PO AM MEDICATIONS. REPORTS NAUSEA, ZOFRAN IVP GIVEN ORDERED PRN. EDUCATED ABOUT BENEFITS OF HIS AM MEDICATIONS. PATIENT IS GOING FOR WOUND DEBRIDEMENT AT THIS TIME.
[2018-12-15] MEDS ORDERED: ESMOLOL 100 MG/10 ML VIAL IV ONE (09:28)
[2018-12-15] MEDS ORDERED: MIDAZOLAM 2 MG/2 ML VIAL ONE (09:40)
[2018-12-15] MEDS ORDERED: KETAMINE 500 MG/5 ML VIAL ONE (09:40)
[2018-12-15] MEDS ORDERED: BLOOD GLUCOSE MONITORING 1 DEV DEV FS SCH (10:00)
[2018-12-15] MEDS ORDERED: HYDROmorphone 1 MG/ML AMP IVP PRN (10:00)
[2018-12-15] MEDS ORDERED: ONDANSETRON 4 MG/2 ML VIAL IVP PRN (10:00)
[2018-12-15] MEDS ORDERED: HYDROmorphone PFS 2 MG/ML SYR ONE (10:08)
--- NOTE | 2018-12-15 11:15 | NUR ---
PATIENT RETURNED FROM WOUND DEBRIDEMENT PROCEDURE. PATIENT IS AWAKE AND ALERT. REPORTS PAIN 8/10 TO BILATERAL LOWER LEGS AND BACK. WILL MEDICATE.
--- NOTE | 2018-12-15 12:32 | NUR ---
PATIENT REPORTS REDUCED PAIN. PATIENT REFUSED REPOSITIONING. TPN CONTINUED AT 70ML/HR, TOLERATING WELL. NEEDS MET.
--- NOTE | 2018-12-15 13:18 | NUR ---
DISCHARGE PLANNING Case discussed between Dr. Mccabe (DISTRIBUTION WAREHOUSE MANAGER) and Dr. Wilson. Dr. Wilson requesting to speak to Dr. Natarajan ([facility] administrative medical director). Dain provided Dr. Wilson with the contact info for Dr. Natarajan's occupational therapist assistants , James Albarran, to schedule the call. Dain also called James at and sent her an email. Dain will continue following up as needed. Dasia Pederson [facility] [phone] Addendum: 12/17/18 at 1346 by Dasia Pederson CM Meeting with [facility] medical team/director and [facility] medical team schedule for Thursday12/20/[address] Wilson informed and confirmed will be able to participate in conference call. 13:40 - Dain left a voice mail for patient's mother, Aamir Perez, to inform her about the meeting. Pt's mother will be allowed to participate after 1:30pm as [facility] wants the first 30 min to be a clinical review/discussion of the patient's case. Dasia Pederson [facility] Ext [phone] Addendum: 12/20/18 at 1613 by Dasia Pederson CM Conference call held today with [facility] team: Dr. Pedroza (Patient Assessment Coordinator) Kishore Rios (CM), Farheen (difficult placement nurse), Dr. Wilson (surgeon caring for pt), Kimberly Alva (CNO/Digital Photographer), Rakel Almeida (CM and Dasia Pederson ([employer] INSPECTION LABORATORY ASSISTANT/CM Biology Teacher). Meeting started at 1300, a medical overview presented by Dr. Wilson about patient's condition, hx of care at [facility], and treatment needs and dc planning. Dr. Wilson strongly advocated to transfer the pt to a higher a Addendum: 12/20/18 at [address] Wilson strongly advocated to transfer the pt to a higher level of care facility for wound care, pain management, plastic surgery and behavioral health services including psychotherapy. This publicity writer explained we have referred the pt to [place], [facility], [facility], [facility] and [facility] and none of the mentioned facilities accepted the referral stating the pt's wounds/condition is chronic and not acute. [facility] team to committed to assist with finding a contracted facility that can provide the level of care the patient needs. Pt's mother joined the call at 13:30 as requested by [facility], mother was made aware of the plan to have the pt transfer to a higher level of care facility or an LTAC facility. [facility] indicated they are willing to find a facility out of network if needed. [facility] will schedule a follow-up call to update about any progress made. The conference ended at 13:50. Dasia Pederson, [facility] Ext [phone] Addendum: 12/21/18 at 1445 by Rakel Almeida CM DISCHARGE PLANNING FAXED ALL THE PAPERWORK TO [facility] , [facility] AND [facility]. SPOKE WITH CHALINO AT [facility] PROVIDED HER THE ADMITTING AND DR WILSON'S CELL PHONE WILL REVIEW THE CASE AND CALL BACK Addendum: 12/21/18 at 1600 by Rakel Almeida CM DC PLANNING RECEIVED A CALL FROM [facility] SPOKE WITH CHALINO BED CONTROL ,STATED PT LIVES IN [facility] AND THEY ONLY TAKE PT WHO LIVES IN [facility] Addendum: 12/22/18 at 1545 by Rakel Almeida CM DC PLANNING: CALLED [facility] [phone] SPOKE WITH RICKEY UPDATED ALL THE INFORMATION PROVIDED DR NATARAJAN AND DR WILSON CELL PHONE , SHE WILL REVIEW THE CASE WITH THE TEAM AND CALL BACK. CALLED [facility] [phone] SPOKE WITH JENNIFER PERALTA STATED THEY DON'T TAKE INPATIENT FOR PLASTIC SURGEON IT HAS TO BE DONE OUT PATIENT AND JENNIFER STATED THAT PT WAS DECL[place] [facility] AND THEY CAN NOT ACCEPT PT , SHE SUGGESTED TO TRY OUT PATIENT CLINIC AND PROVIDE THE NUMBER [phone] AND FAX [phone] . CALLED [facility] SPOKE WITH KISHORE PERALTA UPDATED THE STATUS OF REFERRAL PER KISHORE ONCE WE HERE FROM [facility] AND [facility] THEY WILL DO PEER TO PEER DISCUSSION. Addendum: 12/23/18 at 1100 by Rakel Almeida CM DC PLANNING I RECEIVED A CALL FROM [facility] SPOKE WITH LINA , ACCEPTED PT AND NEEDED AUTHORIZATION. CALLED ESTELLE SPOKE WITH KISHORE [phone] NOTIFIED HIM AND PROVIDED THE AUTH # [id number] ,CALLED BACK LINA AND PROVIDED THE AUTH # ,AND WAITING FOR BED. AUTH # FOR TRANSPORTATION [id number]. CM TO FOLLOW . Addendum: 12/27/18 at 1646 by Rakel Almeida CM DC PLANNING: CALLED [facility] [phone] SPOKE WITH DEBRA , STATED THE CASE IS ADMINISTRATIVELY CLOSED ,CAN NOT OPEN AND TELL ME THE REASON .CALLED KISHORE MCCABE NOTIFIED HIM THAT [facility] DENIED THE CASE . CM TO FOLLOW Addendum: 12/28/18 at 1632 by Dasia Pederson CM Contacted [facility] Kishore to discuss pt's case as he was declined by [facility] and [facility]. Kishore stated he's aware of this information. Kishore stated he contacted [place] [facility] [place] inquire about their response. Kishore was told there's only one plastic surgeon that can accept this case due to its complexity and the surgeon is on vacation for 2 more weeks. Per Kishore, he was told we could re-submit the referral again once this plastic surgeon is back. Sw asked Kishore to discuss the case again with the administrative medical director for further suggestions. Dain will continue following up as needed. Dasia Pederson [facility] Ext [phone] Addendum: 01/03/19 at 1049 by Nellie Welch CM CONTACTED KISHORE RIOS AT [phone] OF [facility], UPDATED HIM OF PATIENT'S CONDITION. HE STATED THEIR PHYSICIAN WAS ON VACATION LAST WEEK AND IS BACK THIS WEEK. HE WILL DISCUSS PATIENT'S CONDITION WITH THEIR PHYSICIAN TODAY AND WILL GIVE ME A CALL FOR UPDATE. Addendum: 01/04/19 at 1445 by Rakel Almeida CM DC PLANNING CALLED [facility] SPOKE WITH KRISHNA NOVAK DR TRYING TO TALK TO MITALI RIBERA PEER TO PEER DISCUSSION CM TO FOLLOW Addendum: 01/05/19 at 1335 by Rakel Almeida CM LATE ENTRY; 12/29/18 MET PT'S MOTHER AAMIR AT THE NURSE'S STATION UPDATED ALL THE INFO REGARDING TRANSFER TO HOSPITALS FOR HIGHER LEVEL [facility], [facility] , [facility] AND [facility] ,THEY ALL DENIES TO ACCEPT THE PATIENT. MS RUTLEDGE EXPRESSED HER FEELING THAT ONE OF HER SISTER CAME TO VISIT HIM AND TOLD HIM TO HELP HIMSELF, NOT TO REFUSE NURSES, THIS MADE HIM UPSET AND DIDN'T WANT TO SEE OR TO TALK TO ANYONE. MOTHER WILL TRY TO CALM HIM AT THIS TIME. CM TO FOLLOW Addendum: 01/05/19 at 1407 by Rakel Almeida CM DC PLANNING CALLED [facility] PHYSICIAN LIAISON TERESA ARANDA [phone] SPOKE WITH CLAY COVERING FOR TERESA SHERIDAN INSTRUCTIONAL SUPPORT TECHNICIAN 'S PHONE NUMBER. CLAY PROVIDED DR DE LEÓN'S(SURGEON) NUMBER [phone] . CALLED [facility] SPOKE WITH KISHORE PROVIDE DR DE LEÓN'S NUMBER PER KISHORE WILL GIVE IT TO [facility] FOR PEER TO PEER DISCUSSION. FAXED NEW HIGHER LEVEL REQUEST TO [facility]. CM TO FOLLOW. CHANTELLE MST COSMETICIAN APPRENTICE ,MYSELF AND DR GARCIA WENT TO PT'S ROOM AND DISCUSSED THE NEED OF PHYSICAL THERAPY PT WAS HESITANT TO DO IT, COMPLAIN THAT IT HURTS EVERYWHERE, DR ESPARZA EXPLAINED PASSIVE RANGE OF MOTION CAN BE DONE SLOWLY , PT AGREED. Addendum: 01/07/19 at 1112 by Rakel Almeida CM DC PLANNING: PT'S MOTHER AAMIR REQUESTED TO SPEAK WITH CM , I SPOKE WITH HER AND MOTHER REQUESTED TO CONTACT THE INSURANCE TO TRANSFER PT TO THE [facility]IN [facility]EMENT [facility] , IF THERE IS ANY HOSPITALS TREATING THE PAIN , I EXPLAIN TO HER THAT ALL THE HOSPITALS WE ARE TRYING TO TRANSFER WE ARE REQUESTING PAIN MANAGEMENT , READING INSTRUCTOR SPECIFICALLY PLASTIC SURGEON AND PSYCHIATRY THERAPY, ALL THOSE HOSPITALS SUCH : [facility], [facility] , [facility] , [facility] AND [facility] . MS RUTLEDGE VERBALIZED UNDERSTANDING AND AWARE OF ALL THE DENIAL FROM THE HOSPITALS. CALLED AND LEFT A MESSAGE FOR [facility] KISHORE REGARDING MOTHER'S REQUEST CM TO FOLLOW.
--- NOTE | 2018-12-15 15:36 | NUR ---
MOTHER AT BEDSIDE. PATIENT REPORTS SEVERE PAIN AND MEDICATED WITH DILAUDID PRN ORDERED. PATIENT IS WATCHING TV, LYING IN BED. ALL NEEDS MET. NO S/S OF ACUTE DISTRESS NOTED.
[2018-12-15 16:00] VITALS: BP 123/61
--- NOTE | 2018-12-15 18:15 | NUR ---
PATIENT REPORTED PAIN AT THIS TIME, MEDICATED ORDERED. PATIENT IS LYING IN BED, REFUSES TO BE REPOSITIONED. NO S/S DISTRESS NOTED. PICC LINE INTACT TO MOLINA WITH DOUBLE LUMEN. TPN INFUSING @ 70ML/HR, TOLERATING WELL. COLOSTOMY INTACT. ALL NEEDS MET. CALL LIGHT WITHIN REACH.
--- NOTE | 2018-12-15 19:18 | NUR ---
REPORT GIVEN TO NIGHT NURSE. PATIENT IS IN STABLE CONDITION.
--- NOTE | 2018-12-15 19:20 | NUR ---
REPORT RECEIVED FROM AM NURSE AT BEDSIDE. PT IN STABLE CONDITION. AAOX4. INTRODUCED SELF TO PT. BOARD UPDATED. NO COMPLAINTS OF PAIN. NO SOB. AFEBRILE. PT IS BEDBOUND. PT HAS COLOSTOMY. IV SITE L UPPER ARM PICC DOUBLE LUMEN RUNNING TPN@70ML/HR PATENT AND INTACT. SKIN WARM, DRY, AND NOT INTACT DUE TO MULTIPLE WOUNDS. BED LOCKED IN LOW POSITION. CALL CONN WITHIN REACH. SAFETY PRECAUTION IN PLACE. ALL NEEDS MET AT THIS TIME.
[2018-12-15] MEDS: MULTIVITAMIN-12 10 ML in DEXTROSE 50% 760 ML, AMINO ACIDS 8.5% 760 ML, FAT EMULSION 20%... IV SCH ×4 (20:20)
--- NOTE | 2018-12-15 20:20 | NUR ---
TPN HUNG AND RUNNING. BS 109. NO INSULIN COVERAGE NEEDED.
--- NOTE | 2018-12-15 21:59 | NUR ---
DILAUDID GIVEN FOR 10/10 GENERALIZED PAIN. PT TOLERATED WELL.
--- NOTE | 2018-12-15 23:20 | NUR ---
PT AWAKE AND ALERT WATCHING TV IN BED. NO S/S OF DISTRESS NOTED. WILL CONTINUE TO MONITOR.
[2018-12-16] VITALS: BP 113/67
[2018-12-16] MEDS: HYDROmorphone PFS 2 MG/ML SYR IVP PRN ×7 (01:31→23:56)
--- NOTE | 2018-12-16 01:31 | NUR ---
DILAUDID GIVEN FOR 10/10 GENERALIZED PAIN. PT TOLERATED WELL.
--- NOTE | 2018-12-16 03:18 | NUR ---
PT AWAKE AND ALERT WATCHING TV. NO S/S OF DISTRESS NOTED. WILL CONTINUE TO MONITOR.
--- NOTE | 2018-12-16 04:59 | NUR ---
DILAUDID GIVEN FOR 10/10 GENERALIZED PAIN. PT TOLERATED WELL.
--- NOTE | 2018-12-16 06:34 | NUR ---
PT AWAKE AND ALERT WATCHING TV. NO S/S OF DISTRESS NOTED. PT IN STABLE CONDITION.
--- NOTE | 2018-12-16 07:05 | NUR ---
Received report from pm nurse Migue. Pt resting in bed, no signs of distress. Left upper arm PICC line intact with ongoing TPN @ 70ml/h. Call light within reach.
[2018-12-16 07:18] LABS: MAGNESIUM 1.9 mg/dL (1.8-2.4); PHOSPHORUS 3.6 mg/dL (2.5-4.9)
[2018-12-16 07:24] LABS: ANION GAP 12.9 (8-16); CARBON DIOXIDE 25.2 mmol/L (21-32); POTASSIUM 4.1 mmol/L (3.5-5.1)
[2018-12-16 08:00] VITALS: BP 107/60
[2018-12-16] MEDS: LACTOBACILLUS RHAMNOSUS GG 1 EACH CAP PO SCH (08:07)
[2018-12-16] MEDS: DULoxetine 30 MG CAPDR PO SCH (08:08)
--- NOTE | 2018-12-16 09:04 | NUR ---
Pt resting in bed, watching TV, no signs of distress. MOLINA PICC line intact with ongoing TPN infusion. Pt refused repositioning, verbalized understanding of risks of further skin breakdown d/t noncompliance with wound care regimen. Call light within reach.
[2018-12-16] MEDS: BLOOD GLUCOSE MONITORING 1 DEV DEV FS SCH ×2 (09:12→20:13)
--- NOTE | 2018-12-16 12:48 | NUR ---
PT PAIN REASSESSMENT, PT STATED PAIN LEVEL "THE SAME". PT WAS OFFERED DIFFERENT MODE FOR PAIN RELIEF, PT STATED "I WILL WAIT FOR THE NEXT DOSE" OF 2MG DILAUDID. PT REFUSED INTERVENTION FOR PAIN AND WILL WAIT WHEN DILAUDID IS DUE. Addendum: 12/16/18 at 1255 by Janette Bautista RN ADDENDUM, PAIN RATING SCALE ALLA 05/19.
--- NOTE | 2018-12-16 13:53 | NUR ---
RD RECOMMENDATIONS 12/16/18 PLEASE REFER TO NUTRITION ASSESSMENT UNDER CARE ACTIVITY FOR ESTIMATED NUTRITIONAL NEEDS. 1. RECOMMEND ELECARE JR TID, ONCE DELIVERED 2. CONTINUE REGULAR DIET 3. ENCOURAGE FAMILY TO BRING SUPPLEMENTS AND FOOD FROM HOME IF APPROPRIATE PER MD 4. RECOMMEND INCREASING TPN INFUSION WHEN MEDICALLY APPROPRIATE TO MEET 75% OF ESTIMATED NEEDS 5. CONTINUE RODRIGUEZ BID 6. ENCOURAGE INCREASING PO INTAKE 7. RD WILL FOLLOW UP 2-3 DAYS, HIGH RISK ALEXEI JOHNSTON RD
[2018-12-16 16:00] VITALS: BP 115/83
--- NOTE | 2018-12-16 17:32 | NUR ---
PT RESTING IN BED. PT REFUSED TO BE REPOSITIONED. PT IS WATCHING TV. TPN RUNNING 70 ML/H.
--- NOTE | 2018-12-16 19:05 | NUR ---
Report given to pm nurse Migue. Pt resting in bed, no signs of pain/distress. Pt's mother at bedside. Call light within reach. MOLINA PICC intact with ongoing TPN @ 70ml/h.
--- NOTE | 2018-12-16 19:06 | NUR ---
REPORT RECEIVED FROM AM NURSE AT BEDSIDE. PT IN STABLE CONDITION. AAOX4. INTRODUCED SELF TO PT. BOARD UPDATED. PT HAS COMPLAINTS OF PAIN. WILL MEDICATE WHEN MEDICATION IS DUE. NO SOB. AFEBRILE. PT IS BEDBOUND. PT HAS COLOSTOMY. IV SITE L UA PICC DOUBLE LUMEN PATENT AND INTACT RUNNING TPN@70ML/HR. SKIN WARM, DRY, AND NOT INTACT DUE TO MULTIPLE WOUNDS. SEE WOUND ASSESSMENT. BED LOCKED IN LOW POSITION. CALL CONN WITHIN REACH. SAFETY PRECAUTION IN PLACE. ALL NEEDS MET AT THIS TIME.
[2018-12-16] MEDS: MULTIVITAMIN-12 10 ML in DEXTROSE 50% 760 ML, AMINO ACIDS 8.5% 760 ML, FAT EMULSION 20%... IV SCH ×4 (19:57)
--- NOTE | 2018-12-16 19:57 | NUR ---
TPN HUNG AND RUNNING. DILAUDID GIVEN FOR 10/10 GENERALIZED PAIN. BS 98. NO INSULIN COVERAGE NEEDED.
[2018-12-16] MEDS: fentaNYL 0.1 MG/HR PATCH TD SCH (22:11)
--- NOTE | 2018-12-16 22:11 | NUR ---
FENTANYL PATCH ADMINISTERED TO RIGHT SHOULDER.
--- NOTE | 2018-12-16 23:56 | NUR ---
DILAUDID GIVEN FOR 10/10 GENERALIZED PAIN. PT TOLERATED WELL.
[2018-12-17] VITALS: BP 104/60
--- NOTE | 2018-12-17 01:50 | NUR ---
PT AWAKE AND ALERT WATCHING TV IN BED. NO S/S OF DISTRESS NOTED. NO COMPLAINTS OF PAIN. NO SOB. AFEBRILE. WILL CONTINUE TO MONITOR.
[2018-12-17] MEDS: HYDROmorphone PFS 2 MG/ML SYR IVP PRN ×5 (03:57→21:49)
--- NOTE | 2018-12-17 03:57 | NUR ---
DILAUDID GIVEN FOR 10/10 GENERALIZED PAIN. PT TOLERATED WELL.
--- NOTE | 2018-12-17 04:20 | NUR ---
CENTRAL LINE DRESSING CHANGED.
[2018-12-17] MEDS: ONDANSETRON 4 MG/2 ML VIAL IVP PRN ×2 (04:24→17:44)
--- NOTE | 2018-12-17 06:30 | NUR ---
PT AWAKE AND ALERT WATCHING TV. PT IN STABLE CONDITION.
--- NOTE | 2018-12-17 07:05 | NUR ---
received report from PM nurse, Migue. PT is awake with no signs of distress, resting in bed. call light within reach.
[2018-12-17 08:00] VITALS: BP 105/69
[2018-12-17] MEDS: BLOOD GLUCOSE MONITORING 1 DEV DEV FS SCH ×2 (08:55→21:56)
[2018-12-17] MEDS: LACTOBACILLUS RHAMNOSUS GG 1 EACH CAP PO SCH (09:00)
[2018-12-17] MEDS: DULoxetine 30 MG CAPDR PO SCH (09:00)
--- NOTE | 2018-12-17 09:45 | NUR ---
Pt resting in bed, watching TV. No signs of distress, no c/o discomfort. MOLINA PICC line intact with ongoing TPN @ 70ml/h. Pt completed oral care independently. Offered to reposition pt, pt refused & states he's "ok for no." Call light within reach.
--- NOTE | 2018-12-17 13:00 | NUR ---
PT RECEIVED PAIN MEDICATION. PT ASKED WHAT TIME HE RECEIVED HIS AM DILAUDID HE WANTED TO SET A TIMER FOR PAIN MEDICATION. PT REFUSED WOUND ASSESSMENT AND CARE. PT STATES HE WANTS HIS WOUND ASSESSMENT DONE IN THE EVENING. CALL LIGHT WITHIN REACH OF PT.
[2018-12-17 16:00] VITALS: BP 106/66
--- NOTE | 2018-12-17 19:10 | NUR ---
RECEIVED REPORT FORM BEVERLEY RN DAYSHIFT NURSE AT BEDSIDE FOR CONTINUITY OF CARE, PT IN STABLE CONDITION.
--- NOTE | 2018-12-17 19:10 | NUR ---
report given to PM nurse, Nafisa. Pt stable, no signs of distress. pt watching TV. TPN finished and PICC line flushed.
[2018-12-17] MEDS: MULTIVITAMIN-12 10 ML in DEXTROSE 50% 760 ML, AMINO ACIDS 8.5% 760 ML, FAT EMULSION 20%... IV SCH ×8 (20:00→20:58)
--- NOTE | 2018-12-17 20:00 | NUR ---
PT ON WOUND BED NO S/S OF PAIN OR DISTRESS NOTED. PICC LINE INTACT NEW BAG OF TPN HUNG AND IS RUNNING AT 70MLS/HR ORDERED. PT SAID COLOSTOMY BAG IS EMPTY AND DRESSING ARE INTACT. PT DECLINED TO HAVE COVER LIFTED, DUE TO ANYTHING TOUCHING AREA BELOW WAIST IS PAINFUL TO PT. PT EATING SUPPER AT BEDSIDE. ALL CONTACT ASPIRATION AND FALLS PRECAUTIONS IN PLACE. ALL REQUESTED NEEDS ATTENDED AND FREIDA CONN IN REACH.
--- NOTE | 2018-12-17 21:00 | NUR ---
PT IN BED FINGERSTICK IS 101 NO HUMALOG COVERAGE NEEDED. OTHER V/S FOLLOWS: T 98.4 P 109 R 18 B/P 95/51 02 100% ON ROOM AIR. PT C/O SEVERE BREAKTHROUGH PAIN, GIVEN IVP/PRN DILAUDID, WILL MONITOR FOR PAIN RELIEF. ALL REQUESTED NEEDS ATTENDED AND CALL CONN IN REACH. Addendum: 12/18/18 at 0339 by Nafisa Case RN DILAUDID GIVEN AT 2149 NOT 2100
[2018-12-18] VITALS: BP 108/68
--- NOTE | 2018-12-18 | NUR ---
PT ON WOUND BED. HE REFUSED TO TURN OR HAVE SHEET TAKEN OFF OF HIM TO CHECK BANDAGES. TPN RUNNING ORDERED AT 70MLS/HR. V/S FOLLOWS T 98.7 P 121 R 18 B/P 108/68 02 97% ON ROOM AIR. ALL REQUESTED NEEDS ATTENDED BY STAFF AND CALL CONN IN REACH. PT ENCOURAGED TO EAT, BUT ONLY ATE A VERY SMALL AMOUNT FOR DINNER PT EATING SMALL BAG OF CHIPS AND GATORADE. PT ALSO DECLINED TO BE MOVED SO HE COULD BE WEIGHTED. ALL FALLS, ASPIRATION AND CONTACT PRECAUTIONS IN PLACE.
[2018-12-18] MEDS: HYDROmorphone PFS 2 MG/ML SYR IVP PRN ×6 (01:45→21:39)
--- NOTE | 2018-12-18 01:45 | NUR ---
PT REQUESTED DILAUDID FOR SEVERE (8/10) BREAKTHROUGH PAIN. PT GIVEN DILAUDID IVP. WILL MONITOR FOR PAIN RELIEF. ALL FALLS, ASPIRATION AND CONTACT PRECAUTIONS IN PLACE.
[2018-12-18 06:48] LABS: BASOPHILS # (AUTO) 0.1 K/uL (0.00-0.22); BASOPHILS % (AUTO) 0.3 % (0.0-2.0); EOSINOPHILS # (AUTO) 0.9 K/uL (0-0.4); HEMATOCRIT 22.5 % (36-52); HEMOGLOBIN 7.3 g/dL (12.0-18.0); LYMPHOCYTES # (AUTO) 1.1 K/uL (2.0-11.5); MEAN CORPUSCULAR HEMOGLOBIN 29 pg (27-31); MEAN CORPUSCULAR HGB CONC 32 g/dL (33-37); MEAN CORPUSCULAR VOLUME 88.2 fL (80-94); MONOCYTES # (AUTO) 1.3 K/uL (0.8-1.0); MONOCYTES % (AUTO) 7.1 % (1.7-9.3); NEUTROPHILS # (AUTO) 15.1 K/uL (1.8-7.7); PLATELET COUNT (AUTO) 361 K/uL (140-450); RED BLOOD CELL COUNT(AUTO) 2.55 MIL/uL (4.20-6.10); RED CELL DISTRIBUTION WIDTH 15.4 % (11.6-13.7); WHITE BLOOD COUNT (AUTO) 18.5 K/uL (4.8-10.8)
--- NOTE | 2018-12-18 07:05 | NUR ---
RECEIVED REPORT FROM REELING MACHINE OPERATOR NURSE. PATIENT IS LYING BED, AWAKE, ALERT AND VERBALLY RESPONSIVE. NO S/S OF DISTRESS NOTED. PICC LINE INTACT AND PATENT TO MOLINA. IV TPN INFUSING AT 70ML/HR, TOLERATING WELL. DENIES PAIN AT THIS TIME. BED IN LOW POSITION. SAFETY MEASURES IN PLACE. CALL LIGHT WITHIN REACH.
[2018-12-18 07:11] LABS: ALBUMIN 1.4 g/dL (3.4-5.0); ANION GAP 15.5 (8-16); CARBON DIOXIDE 22.3 mmol/L (21-32); CREATININE 0.9 mg/dL (0.7-1.3); POTASSIUM 3.8 mmol/L (3.5-5.1); TOTAL BILIRUBIN 0.3 mg/dL (0.0-1.0)
[2018-12-18 08:00] VITALS: BP 107/61
[2018-12-18 08:23] LABS: EOSINOPHILS % (AUTO) 4.9 % (0.0-4.0); LYMPHOCYTES % (AUTO) 6.1 % (20.5-51.1); NEUTROPHILS % (AUTO) 81.6 % (42.2-75.2)
[2018-12-18] MEDS: DULoxetine 30 MG CAPDR PO SCH (09:00)
[2018-12-18] MEDS: LACTOBACILLUS RHAMNOSUS GG 1 EACH CAP PO SCH (09:00)
--- NOTE | 2018-12-18 09:34 | NUR ---
PATIENT IS LYING IN BED, ALERT AND ORIENTED X4. WATCHING TV. PATIENT REPORTS PAIN 8/10 TO BACK AND BILATERAL LOWER EXT. WILL MEDICATED ORDERED FOR PAIN PRN. NO S/S OF ACUTE DISTRESS NOTED. PATIENT REFUSED AM ORAL MEDICATIONS. EDUCATED ABOUT THE BENEFITS OF MEDICATIONS. ENCOURAGED ABOUT THE IMPORTANCE OF REPOSITIONING. VERBALIZED UNDERSTANDING.
[2018-12-18] MEDS: BLOOD GLUCOSE MONITORING 1 DEV DEV FS SCH ×2 (09:54→21:38)
--- NOTE | 2018-12-18 11:05 | NUR ---
PATIENT REMAINS COMFORTABLE IN BED. REFUSED REPOSITIONING. NO S/S OF DISTRESS NOTED.
--- NOTE | 2018-12-18 12:32 | NUR ---
PATIENT IS EATING LUNCH. NO S/S OF DISTRESS NOTED.
--- NOTE | 2018-12-18 13:55 | NUR ---
PATIENT REPORTS PAIN 9/10 TO BACK AREA. MEDICATED ORDERED PRN. PICC LINE INTACT AND PATENT TO MOLINA. TPN INFUSING AT 70ML/HR AND TOLERATING WELL. NO DISTRESS NOTED. CALL LIGHT WITHIN REACH.
--- NOTE | 2018-12-18 13:56 | NUR ---
12/18/18 RD FOLLOW UP COMPLETED PLEASE REFER TO NUTRITION PROGRESS NOTE UNDER CARE ACTIVITY FOR ESTIMATED NUTRITION NEEDS. RD RECOMMENDATIONS: 1. RECOMMEND ELECARE JR TID TO OPTIMIZE NUTRTION INTAKE. 2. CONTINUE REGULAR DIET 3. ENCOURAGE FAMILY TO BRING SUPPLEMENTS AND FOOD FROM HOME IF APPROPRIATE PER MD 4. RECOMMEND INCREASING TPN INFUSION WHEN MEDICALLY APPROPRIATE TO MEET 75% OF ESTIMATED NEEDS 5. CONTINUE RODRIGUEZ BID 6. ENCOURAGE INCREASING PO INTAKE 7. RD WILL FOLLOW UP 2-3 DAYS, HIGH RISK DASH FINCH, RD
[2018-12-18 16:00] VITALS: BP 115/67
--- NOTE | 2018-12-18 16:00 | NUR ---
VS STABLE. PATIENT IS WATCHING TV. NO S/S OF DISTRESS NOTED.
--- NOTE | 2018-12-18 17:50 | NUR ---
MEDICATED FOR PAIN 9/10 BACK AREA. MOTHER AT BEDSIDE. PATIENT IS ALERT, ORIENTED X4. NO S/S OF DISTRESS NOTED.
--- NOTE | 2018-12-18 19:05 | NUR ---
REPORT GIVEN TO NIGHT NURSE, GÉNESIS THAO. PATIENT IN STABLE CONDITION.
--- NOTE | 2018-12-18 19:10 | NUR ---
RECEIVED PT IN STABLE CONDITION FROM AM NURSE. AWAKE,ALERT AND ORIENTED X4. MED SURG PT. WITH MOTHER AT BEDSIDE. BEDREST. NO C/O PAIN AT THIS TIME. TPN INFUSING WELL ON THE LEFT UPPER ARM PICC LINE . BOTH LUMEN CLEAR AND PATENT. BOTH LOWER EXTREMITIES COVERED WITH WHITE SHEETS. BED ON LOWEST POSITION. SIDE RAILS UP X2. CALL LIGHT PLACED WITHIN EASY REACH. ON CONTACT ISOLATION . WILL CONTINUE TO MONITOR.
[2018-12-18] MEDS: MULTIVITAMIN-12 10 ML in DEXTROSE 50% 760 ML, AMINO ACIDS 8.5% 760 ML, FAT EMULSION 20%... IV SCH ×4 (19:52)
--- NOTE | 2018-12-18 19:52 | NUR ---
NEW TPN BAG STARTED ON THE LEFT UPPER ARM PICC LINE. BOTH LINE CLEAR AND PATENT.
--- NOTE | 2018-12-18 21:05 | NUR ---
DR. RODRIGUEZ CAME ANS SEEN PT WITH ORDERS.
--- NOTE | 2018-12-18 21:38 | NUR ---
BLOOD SUGAR WAS CHECKED RESULT 88. ENCOURAGED TO EAT. TPN INFUSING WELL. WILL CONTINUE TO MONITOR.
--- NOTE | 2018-12-18 22:15 | NUR ---
PROVIDED PT WITH URINE CONTAINER FOR DR. RODRIGUEZ ORDERED UA AND URINE CULTURE. CHEST XR DONE AT BEDSIDE. WILL FOLLOW UP RESULT.
--- NOTE | 2018-12-18 23:38 | NUR ---
PT REFUSED TO HAVE BLOOD DRAWN AT THIS TIME. HE SAID TO DO IT IN AM AT THE USUAL TIME FOR AM LAB DRAW.
[2018-12-18 23:42] VITALS: BP 95/48
[2018-12-19] MEDS: HYDROmorphone PFS 2 MG/ML SYR IVP PRN ×6 (01:50→20:23)
--- NOTE | 2018-12-19 02:50 | NUR ---
PT AWAKE. PAIN IS REDUCED . COMFORTABLE AT THIS TIME.
--- NOTE | 2018-12-19 04:40 | NUR ---
PT AWAKE. JUST ASKED WHAT TIME HIS PAIN MED DUE. MADE HIM AWARE THAT STILL EARLY. HE SAID OK ,HE'LL WAIT.
[2018-12-19 05:44] VITALS: BP 105/56
--- NOTE | 2018-12-19 06:08 | NUR ---
UNABLE TO COLLECT URINE SPECIMEN EARLIER WHEN PT VOIDED. STILL NEED THE SPECIMEN.PT INSTRUCTED AGAIN .CONTAINER AT BEDSIDE.
--- NOTE | 2018-12-19 07:15 | NUR ---
ENDORSED PT IN ASTABLE CONDITION TO AM NURSE.
--- NOTE | 2018-12-19 07:30 | NUR ---
NURSES NOTES ASSESSED PT IN ROOM. BED SIDE RAILS UP X2, SAFETY PRECAUTION IN PLACE, BED IN LOWEST POSITION. PT REFUSED SKIN AND COLOSTOMY ASSESSMENT. HE STATED "MY BAG IS ALREADY CLEANED". WILL CONT TO MONITOR PT
[2018-12-19 08:00] VITALS: BP 105/52
--- NOTE | 2018-12-19 08:40 | NUR ---
PATIENT HAD BLOOD SUGAR 86. NO COVERAGE NEEDED. ENCOURAGED PT TO DRINK JUICE
[2018-12-19] MEDS: LACTOBACILLUS RHAMNOSUS GG 1 EACH CAP PO SCH (09:00)
[2018-12-19] MEDS: DULoxetine 30 MG CAPDR PO SCH (09:00)
[2018-12-19] MEDS: BLOOD GLUCOSE MONITORING 1 DEV DEV FS SCH ×2 (09:00→20:18)
[2018-12-19 09:44] LABS: ALBUMIN 1.4 g/dL (3.4-5.0); ANION GAP 14.7 (8-16); CREATININE 0.7 mg/dL (0.7-1.3); MAGNESIUM 1.9 mg/dL (1.8-2.4); PHOSPHORUS 3.8 mg/dL (2.5-4.9); POTASSIUM 3.7 mmol/L (3.5-5.1); TOTAL BILIRUBIN 0.2 mg/dL (0.0-1.0)
--- NOTE | 2018-12-19 10:16 | NUR ---
EVS WAS CONTACTED BECAUSE PT'S TOILET IS MALFUNCTIONING Addendum: 12/19/18 at 1150 by Agency Cayla CAPPS RN EVS CAME AND FIXED THE TOILET
--- NOTE | 2018-12-19 11:12 | NUR ---
PT WAS LYING IN BED LOOKING VERY FATIGUED. HE TOLD RN THAT HE DOESN'T WANT TO BE TURNED BY THE STAFF EVERY 2 HOURS SINCE HE REPOSITIONS HIMSELF WHEN SLEEPING. HE ALSO TOLD RN THAT HIS COLOSTOMY BAG DOESN'T NEED TO BE CHANGED AND IT'S NOT FULL AT THIS TIME AND ONLY WANTS THE MDs TO CHANGE HIS DRESSING FOR HIM DUE TO HIS INTOLERABLE PAIN AND NOT THE RNs.
--- NOTE | 2018-12-19 11:44 | NUR ---
PT WAS TOLD THAT HIS PAIN MED IS NOT DUE UNTIL 1250PM PT VERBALIZED UNDERSTANDING
[2018-12-19 12:28] LABS: APPEARANCE,URINE CLEAR (CLEAR); BILIRUBIN,URINE NEGATIVE (NEGATIVE); BLOOD, URINE NEGATIVE (NEGATIVE); COLOR,URINE YELLOW (YELLOW); LEUKOCYTE ESTERASE ,URINE NEGATIVE (NEGATIVE); NITRITE, URINE NEGATIVE (NEGATIVE); PH,URINE 5.5 (5.0-9.0); UGLUCOSE NEGATIVE (NEGATIVE)
--- NOTE | 2018-12-19 13:15 | NUR ---
PT REFUSED TO HAVE COLOSTOMY BAG CHANGED ALTHOUGH THE BAG IS ALREADY 1/2 FULL
--- NOTE | 2018-12-19 14:11 | NUR ---
MADE ROUNDS ON PATIENT AND TOLD RN THAT HIS COLOSTOMY BAG IS NOT READY TO BE CHANGED AND HE WILL LET RN KNOW WHEN IT IS READY.
[2018-12-19 16:02] VITALS: BP 102/54
--- NOTE | 2018-12-19 16:20 | NUR ---
PT LYING IN BED WITH CHEST VISIBLY RECOILING WITH NO SIGNS OF DISTRESS. TPN RUNNING AT 70 CC. TPN BAG HAS NO SIGNS OF EMULSION. WILL CONT TO MONITOR
--- NOTE | 2018-12-19 17:04 | NUR ---
NURSES NOTES PATIENT CONTINUED TO REFUSE COLOSTOMY BAG CHANGE AND EVERY 2 HOURS REPOSITION. MOTHER WAS AT BEDSIDE AND MADE AWARE OF THE PT REFUSING THESE NURSING TASKS. THE MOTHER TOLD RN THAT SHE WILL CHANGE THE COLOSTOMY BAGS AND TO NOT WORRY.
--- NOTE | 2018-12-19 19:04 | NUR ---
PT ENDORSED IN STABLE CONDITIONS TO NIGHT NURSE ALL QUESTIONS ANSWERED
--- NOTE | 2018-12-19 19:10 | NUR ---
RECEIVED PT IN STABLE CONDITION FROM AM NURSE FOR CONTINUITY OF CARE. MED SURG PT. BEDREST. AWAKE ,ALERT AND ORIENTED X4. WITH MOM AT BEDSIDE. ASKED WHEN HIS NEXT PAIN MED DUE AND MADE HIM AWARE. CAN WAIT FOR THE NEXT TIME. HAS TPN STILL INFUSING WELL ON THE LT UPPER ARM PICC LINE DOUBLE LUMEN. 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 PT REFUSED TO OPEN TO ASSESS SKIN. COLOSTOMY BAG IN PLACED. BED ON LOW POSITION. SIDE RAILS UP X2. CALL LIGHT AND URINAL PLACED WITHIN EASY REACH. ON CONTACT ISOLATION, FAMILY AWARE ABOUT PRECAUTIONS. WILL CONTINUE TO MONITOR.
[2018-12-19] MEDS: MULTIVITAMIN-12 10 ML in DEXTROSE 50% 760 ML, AMINO ACIDS 8.5% 760 ML, FAT EMULSION 20%... IV SCH ×4 (19:43)
--- NOTE | 2018-12-19 20:15 | NUR ---
BLOOD SUGAR WAS CHECKED RESULT 92. NO INSULIN COVERAGE NEEDED. ON TPN INFUSING WELL.
[2018-12-19] MEDS: fentaNYL 0.075 MG/HR PATCH TD SCH (22:23)
--- NOTE | 2018-12-19 22:30 | NUR ---
MADE ROUNDS. IV BEEPING. TUBING BENDED. REPOSITIONED. IVF INFUSING WELL .
[2018-12-19 23:49] VITALS: BP 104/57
[2018-12-20] MEDS: HYDROmorphone PFS 2 MG/ML SYR IVP PRN ×7 (00:35→23:04)
--- NOTE | 2018-12-20 01:35 | NUR ---
MADE ROUNDS. PT RESTING .NO C/O ANY DISCOMFORT AT THIS TIME.
--- NOTE | 2018-12-20 03:00 | NUR ---
MADE ROUNDS. PT RESTING. NO S/S OF ANY DISCOMFORT NOTED.
--- NOTE | 2018-12-20 05:34 | NUR ---
MADE ROUNDS. PT IS RESTING. PAIN REDUCED FORM PAIN MED GIVEN AN HOUR AGO.
--- NOTE | 2018-12-20 06:57 | NUR ---
ENDORSED PT IN STABLE CONDITION TO AM NURSE FOR CONTINUITY OF CARE.
--- NOTE | 2018-12-20 07:30 | NUR ---
NURSES NOTES ASSESSED PT IN ROOM. BED SIDE RAILS UP X2, SAFETY PRECAUTION IN PLACE, BED IN LOWEST POSITION. PT REFUSED SKIN AND COLOSTOMY ASSESSMENT. HE STATED "MY BAG IS ALREADY CLEANED BY MY MOTHER". HE ALSO STATED THAT RN CAN HELP REPOSITION HIM TODAY WILL CONT TO MONITOR PT Addendum: 12/20/18 at 0904 by Agency 04 GÉNESIS RN PT TOLD RN THAT HE NO LONGER WANTS TO BE REPOSITIONED DUE TO HIS PAIN
[2018-12-20 07:40] VITALS: BP 109/45
[2018-12-20] MEDS: BLOOD GLUCOSE MONITORING 1 DEV DEV FS SCH ×2 (08:31→21:00)
[2018-12-20] MEDS: DULoxetine 30 MG CAPDR PO SCH ×2 (08:32→09:00)
[2018-12-20] MEDS: LACTOBACILLUS RHAMNOSUS GG 1 EACH CAP PO SCH ×2 (08:32→09:00)
--- NOTE | 2018-12-20 08:35 | NUR ---
PT REFUSED ALL PO 0900 MEDS AND TOLD RN THAT HE DOESN'T FEEL LIKE TAKING THEM TODAY
--- NOTE | 2018-12-20 09:02 | NUR ---
THE GLUCOMETER COULDN'T SCAN THE PT'S ID WRIST BAND. RN HAD TO OVERRIDE ON THE GLUCOMETER IN ORDER TO MEASURE PT'S BLOOD SUGAR
--- NOTE | 2018-12-20 12:34 | NUR ---
PT RECEIVED HAM SANDWICH PER HIS REQUEST
--- NOTE | 2018-12-20 14:58 | NUR ---
PT'S MOTHER SIGNED CONSENT FORM AND IT WAS LEFT IN CHART. RN TOLD THE MOTHER AND PT THAT IF THEY HAVE OTHER QUESTIONS TO ASK THE SURGEON TOMORROW PRIOR TO THE SURGERY. PT WAS MADE AWARE THAT HE WILL BE NPO BY MIDNIGHT AND NPO SIGNED WAS PLACED ON THE DOOR.
[2018-12-20 16:07] VITALS: BP 103/55
--- NOTE | 2018-12-20 16:45 | NUR ---
RN OFFERED ASSISTANCE TO PT'S MOTHER WHEN SHE CHANGES THE COLOSTOMY BAG. THE MOTHER TOLD RN THAT SHE WILL LATER.
--- NOTE | 2018-12-20 18:12 | NUR ---
PT TOLD RN THAT HE WANTS HIS COLOSTOMY BAG TO BE CHANGED LATER TONIGHT WITH THE TALENT ACQUISITION ADMINISTRATOR NURSE. WILL INFORM TALENT ACQUISITION ADMINISTRATOR.
--- NOTE | 2018-12-20 18:28 | NUR ---
CALLED LAB AND THEY TOLD RN THAT THEY WILL F/U WITH THE ORDERS AND SEE WHEN THE SETTER UP CAN COME DRAW LABS FOR THE TYPE AND SCREEN
--- NOTE | 2018-12-20 19:15 | NUR ---
PT ENDORSED IN STABLE CONDITIONS TO NIGHT NURSE, LEDY CAPPS ALL QUESTIONS ANSWERED
--- NOTE | 2018-12-20 19:16 | NUR ---
RECEIVED PT IN STABLE CONDITION FROM AM NURSE FOR CONTINUITY OF CARE. MED SURG PT. BEDREST. AWAKE ,ALERT AND ORIENTED X4. WITH MOM AT BEDSIDE AND AUNT. HAS TPN STILL INFUSING WELL ON THE LT UPPER ARM PICC LINE DOUBLE LUMEN. 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 PT REFUSED TO OPEN TO ASSESS SKIN. PT ALSO REFUSED ME TO ZERO DOWN BED, COLOSTOMY BAG IN PLACED. BED ON LOW POSITION. SIDE RAILS UP X2. CALL LIGHT AND URINAL PLACED WITHIN EASY REACH. ON CONTACT ISOLATION, FAMILY AWARE ABOUT PRECAUTIONS. WILL CONTINUE TO MONITOR.
[2018-12-20] MEDS: ONDANSETRON 4 MG/2 ML VIAL IVP PRN (19:41)
--- NOTE | 2018-12-20 19:42 | NUR ---
PT CRYING IN PAIN, PT ALSO VOMITING MODERATE AMOUNT OF VOMITUS . W/ MOTHER AND AUNT AT BEDSIDE, GAVE PAIN MEDS, ALSO GAVE ONDASETRON FOR VOMITING
[2018-12-20] MEDS: MULTIVITAMIN-12 10 ML in DEXTROSE 50% 760 ML, AMINO ACIDS 8.5% 760 ML, FAT EMULSION 20%... IV SCH ×4 (19:43)
--- NOTE | 2018-12-20 20:28 | NUR ---
CALLED [facility], FOR URGENT TRANSFUSION OF 2 UNITS OF PACKED CELLS (BLOOD). [facility] AWARE AND ACKNOWLEDGED
--- NOTE | 2018-12-20 21:10 | NUR ---
CALLED DR. CAICEDO, AWAITING CALL BACK, FOR SIGNATURE OF BLOOD TRANSFUSION
--- NOTE | 2018-12-20 22:46 | NUR ---
NO TURNING DONE , NO REPOSITIONING AND OFF LOADING PT REFUSED TO BE TOUCHED AND ASSESSED
--- NOTE | 2018-12-20 23:00 | NUR ---
DR. CAICEDO INFORMED DR. WEBSTER TO SIGN BLOOD TRANSFUSION CONSENT
--- NOTE | 2018-12-20 23:16 | NUR ---
BLOOD RECEIVED FROM REKHA BEJARANO
--- NOTE | 2018-12-20 23:24 | NUR ---
STARTED BLOOD TRANSFUSION, VERIFIED BEFOREHAND BY 2 LICENSED NURSES, MUNIRA AND MIKE AND CHECKED W/ PT IDENTIFIERS. Addendum: 12/21/18 at 0402 by Mike Townsend RN STARTED 1ST UNIT OF BLOOD
--- NOTE | 2018-12-20 23:30 | NUR ---
PRETRANSFUSION 97.8, 108, 18, 101/52, 5/10 MEDICATED DILAUDID FOR CURRENT PAIN; 100% O2 SAT
--- NOTE | 2018-12-20 23:30 | NUR ---
DR. WEBSTER SIGNED FOR DR. CAICEDO
[2018-12-21] VITALS: BP 109/59
--- NOTE | 2018-12-21 03:00 | NUR ---
POST BT 108/58; 112 ; 97%; 18; 98, PAIN 9/10 WILL MEDICATE
[2018-12-21] MEDS: HYDROmorphone PFS 2 MG/ML SYR IVP PRN ×6 (03:17→23:23)
--- NOTE | 2018-12-21 03:45 | NUR ---
PRE BT VS: 98.6; 115; 18; 98/55 5/10 PAIN SCALE MEDICATED EARLIER W/ DILAUDID
--- NOTE | 2018-12-21 04:00 | NUR ---
STARTED 2ND PACKED CELLS, PT TOLERATING WELL, NO COMPLAINTS OF PAIN, NOT IN RESPIRATORY DISTRESS Addendum: 12/21/18 at 0403 by Mike Tonwsend RN VERIFIED BEFOREHAND BY 2 LICENSED NURSES,BHARATHI AND MIKE AND CHECKED W/ PT IDENTIFIERS.
--- NOTE | 2018-12-21 04:30 | NUR ---
PT'S VITALS TAKEN DURING BLOOD TRANSFUSION 98.5; 114; 18; 96/54; 100% O2 SAT; DENIES PAIN
--- NOTE | 2018-12-21 06:25 | NUR ---
PT C/O OF PAIN MOANING 10/19, DILAUDID GIVEN
--- NOTE | 2018-12-21 06:40 | NUR ---
2ND UNIT OF BLOOD GIVEN DONE AT 0640, NO SIGNS OF ADVERSE REACTION, WILL ENDORSE TO NEXT SHIFT
--- NOTE | 2018-12-21 07:12 | NUR ---
PT AWAKE, ALERT ORIENTED X 4,ON BEDREST. MEDSURG PT. FOR DEBRIDEMENT UNDER ANESTHESIA BY DR. CAICEDO. NO SCHEDULED TIME YET. PT IS NPO AFTER MIDNIGHT. PT WITH TPN 70 ML VIA LEFT UA PICC, PATENT. LAB WAS HERE TO TAKE CBC, CMP, PT, INR AND APTT. RESULTS AWAITING.
--- NOTE | 2018-12-21 07:13 | NUR ---
RECEIVED REPORT FOR CONTINUITY OF CARE. PT IN STABLE CONDITION. RESPIRATIONS EVEN AND UNLABORED. IV INTACT AND PATENT. SAFETY MEASURES IN PLACE AND PATENT. BED IN LOW POSITION. BED ALARM ON. CALL LIGHT AT BEDSIDE. WILL CONTINUE TO MONITOR.
[2018-12-21 07:20] LABS: BASOPHILS # (AUTO) 0.1 K/uL (0.00-0.22); BASOPHILS % (AUTO) 0.4 % (0.0-2.0); EOSINOPHILS # (AUTO) 1.2 K/uL (0-0.4); EOSINOPHILS % (AUTO) 6.7 % (0.0-4.0); HEMATOCRIT 27.3 % (36-52); HEMOGLOBIN 8.7 g/dL (12.0-18.0); LYMPHOCYTES # (AUTO) 2.6 K/uL (2.0-11.5); LYMPHOCYTES % (AUTO) 15.1 % (20.5-51.1); MEAN CORPUSCULAR HEMOGLOBIN 28 pg (27-31); MEAN CORPUSCULAR HGB CONC 32 g/dL (33-37); MEAN CORPUSCULAR VOLUME 87.7 fL (80-94); MONOCYTES # (AUTO) 1.3 K/uL (0.8-1.0); MONOCYTES % (AUTO) 7.8 % (1.7-9.3); NEUTROPHILS # (AUTO) 12.1 K/uL (1.8-7.7); PLATELET COUNT (AUTO) 447 K/uL (140-450); RED BLOOD CELL COUNT(AUTO) 3.12 MIL/uL (4.20-6.10); RED CELL DISTRIBUTION WIDTH 16.4 % (11.6-13.7); WHITE BLOOD COUNT (AUTO) 17.3 K/uL (4.8-10.8)
[2018-12-21 07:45] LABS: PROTHROMBIN TIME 11.6 secs (10.8-13.4)
[2018-12-21 07:47] LABS: ALBUMIN 1.5 g/dL (3.4-5.0); CARBON DIOXIDE 23.8 mmol/L (21-32); CREATININE 0.8 mg/dL (0.7-1.3); POTASSIUM 4.8 mmol/L (3.5-5.1); TOTAL BILIRUBIN 0.5 mg/dL (0.0-1.0)
[2018-12-21 08:00] VITALS: BP 116/56
[2018-12-21] MEDS: LACTOBACILLUS RHAMNOSUS GG 1 EACH CAP PO SCH (08:35)
[2018-12-21] MEDS: BLOOD GLUCOSE MONITORING 1 DEV DEV FS SCH ×2 (08:35→21:52)
[2018-12-21] MEDS: DULoxetine 30 MG CAPDR PO SCH (08:36)
--- NOTE | 2018-12-21 09:00 | NUR ---
PT TAKEN OFF UNIT FOR OPERATING ROOM DEBRIDEMENT. PT IN STABLE CONDITION.
[2018-12-21] MEDS ORDERED: PROPOFOL 200 MG/20 ML VIAL IV ONE (09:16)
[2018-12-21] MEDS ORDERED: SEVOFLURANE 250 ML BTL INH ONE (09:16)
[2018-12-21] MEDS ORDERED: fentaNYL 0.05 MG/ML VIAL ONE (09:17)
[2018-12-21] MEDS ORDERED: MIDAZOLAM 2 MG/2 ML VIAL ONE (09:17)
[2018-12-21] MEDS ORDERED: HYDROmorphone PFS 2 MG/ML SYR ONE (09:45)
[2018-12-21] MEDS ORDERED: diphenhydrAMINE 50 MG/ML VIAL IVP PRN (10:00)
[2018-12-21] MEDS ORDERED: MEPERIDINE 25 MG/ML SYR IVP PRN (10:00)
[2018-12-21] MEDS ORDERED: ONDANSETRON 4 MG/2 ML VIAL IVP PRN (10:00)
[2018-12-21] MEDS: HYDROmorphone 1 MG/ML AMP IVP PRN ×2 (10:03→10:13)
--- NOTE | 2018-12-21 10:35 | NUR ---
PT BACK ON UNIT AFTER DEBRIDEMENT. PT IN STABLE CONDITION.
[2018-12-21] MEDS ORDERED: HYDROmorphone 1 MG/ML AMP IVP SCH ×2 (13:04→13:30)
--- NOTE | 2018-12-21 13:15 | NUR ---
GAVE PAIN MEDICATION PER PT REQUEST. BED IN LOW POSITION. CALL LIGHT AT BEDSIDE. WILL CONTINUE TO MONITOR.
[2018-12-21] MEDS: LACTATED RINGERS 1,000 ML IV SCH ×2 (14:53→18:17)
--- NOTE | 2018-12-21 15:22 | NUR ---
PT LYING IN BED SLEEP AT THIS TIME. RESPIRATIONS EVEN AND UNLABORED. WILL CONTINUE TO MONITOR.
--- NOTE | 2018-12-21 15:24 | NUR ---
RD RECOMMENDATIONS PLEASE REFER TO NUTRITION ASSESSMENT UNDER CARE ACTIVITY FOR ESTIMATED NUTRITIONAL NEEDS. 1. CONTINUE REGULAR DIET 2. RECOMMEND ELECARE JR TID 3. ENCOURAGE FAMILY TO BRING SUPPLEMENTS AND FOOD FROM HOME IF APPROPRIATE PER MD 4. RECOMMEND INCREASING TPN INFUSION WHEN MEDICALLY APPROPRIATE TO MEET 75% OF ESTIMATED NEEDS 5. CONTINUE RODRIGUEZ BID 6. ENCOURAGE INCREASING PO INTAKE 7. RD WILL FOLLOW UP 2-3 DAYS, HIGH RISK ALEXEI JOHNSTON RD
[2018-12-21 16:00] VITALS: BP 109/58
--- NOTE | 2018-12-21 17:10 | NUR ---
PT GIVEN DINNER TRAY AT THIS TIME. PT IN STABLE CONDITION.
--- NOTE | 2018-12-21 19:00 | NUR ---
PT REFUSED POSITION CHANGE AND CLEANING THROUGHOUT SHIFT. WILL CONTINUE TO MONITOR.
--- NOTE | 2018-12-21 19:15 | NUR ---
GAVE REPORT TO CLINICAL ACCOUNT LIAISON NURSE MIKE FOR CONTINUITY OF CARE. PT IN STABLE CONDITION.
--- NOTE | 2018-12-21 19:19 | NUR ---
RECEIVED PT IN STABLE CONDITION FROM AM NURSE FOR CONTINUITY OF CARE. MED SURG PT. BEDREST. AWAKE ,ALERT AND ORIENTED X4. HAS TPN STILL INFUSING WELL ON THE LT UPPER ARM PICC LINE DOUBLE LUMEN. WITH LR INFUSING AT 120 ML/ HR . 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 PT REFUSED TO OPEN TO ASSESS SKIN. PT ALSO REFUSED ME TO ZERO DOWN BED, COLOSTOMY BAG IN PLACED. BED ON LOW POSITION. SIDE RAILS UP X2. CALL LIGHT AND URINAL PLACED WITHIN EASY REACH. ON CONTACT ISOLATION, FAMILY AWARE ABOUT PRECAUTIONS. WILL CONTINUE TO MONITOR.
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
[2018-12-21] MEDS: MULTIVITAMIN-12 10 ML in DEXTROSE 50% 760 ML, AMINO ACIDS 8.5% 760 ML, FAT EMULSION 20%... IV SCH ×4 (20:11)
--- NOTE | 2018-12-21 22:00 | NUR ---
FREQUENT ROUNDING DONE; PT COMFORTABLE NO SIGNS AND SYMPTOMS OF PAIN; ALL NEEDS MET
[2018-12-22] VITALS: BP 105/58
--- NOTE | 2018-12-22 01:20 | NUR ---
PT NOT IN PAIN NOT IN RESPIRATORY DISTRESS WILL CONTINUE TO MONITOR
[2018-12-22] MEDS: LACTATED RINGERS 1,000 ML IV SCH (02:37)
[2018-12-22] MEDS: HYDROmorphone PFS 2 MG/ML SYR IVP PRN ×6 (03:04→20:56)
--- NOTE | 2018-12-22 03:20 | NUR ---
PT JUST GIVEN PAIN MEDS, FREQUENT ROUNDING DONE. PT TRYING TO SLEEP
[2018-12-22 06:00] VITALS: BP 98/59
--- NOTE | 2018-12-22 07:34 | NUR ---
PT ENDORSED TO AM SHIFT. PT AWAKE ALERT ORIENTED X 4. INFORMED NURSE TO ASK AP IF IVF STILL TO CONTINUE. PT WITHIN TOLERABLE PAIN, NOT IN RESPIRATORY DISTRESS. STABLE CONDITION AT THIS TIME.
--- NOTE | 2018-12-22 07:35 | NUR ---
RECEIVED REPORT FROM NIGHT NURSE. PATIENT IS IN LYING BED, AWAKE AND ALERT. RESPIRATION EVEN AND UNLABORED. DENIES PAINT AT THIS TIME. IV TPN INFUSING AT 70ML/HR VIA PICC LINE TO [place]. TOLERATING WELL. WILL CONTINUE TO MONITOR.
[2018-12-22] MEDS: LACTOBACILLUS RHAMNOSUS GG 1 EACH CAP PO SCH (09:00)
[2018-12-22] MEDS: DULoxetine 30 MG CAPDR PO SCH (09:00)
[2018-12-22] MEDS: BLOOD GLUCOSE MONITORING 1 DEV DEV FS SCH ×2 (09:00→21:00)
--- NOTE | 2018-12-22 10:00 | NUR ---
PATIENT'S AM PO MEDS REFUSED. EDUCATED ABOUT THE BENEFITS PATIENT VERBALIZED UNDERSTANDING. IV TPN INFUSING AT 70ML, TOLERATING WELL. NO S/S OF DISTRESS NOTED. PATIENT IS WATCHING TV.
--- NOTE | 2018-12-22 14:00 | NUR ---
PT REPORTS SEVERE PAIN MEDICATED FOR PAIN ORDERED. NO S/S OF DISTRESS NOTED. Addendum: 12/22/18 at 1904 by Estephanie Gonzalez RN IN ADDITION TO NOTE ABOVE: PT REFUSED REPOSITIONING.
[2018-12-22 16:00] VITALS: BP 96/69
--- NOTE | 2018-12-22 17:35 | NUR ---
PT IS WATCHING TV, MOTHER AT BEDSIDE. PT REFUSED REPOSITIONING. PT GIVEN PAIN MEDICATION ORDERED. NEEDS MET. NO S/S OF DISTRESS.
--- NOTE | 2018-12-22 19:20 | NUR ---
ENDORSED FOR CONTINUITY OF CARE TO GÉNESIS GAMING. PATIENT IS IN STABLE CONDITION.
--- NOTE | 2018-12-22 19:20 | NUR ---
RECIEVED PT AAOX4 , NID , ON TPN , WITH PICC LINE - INTACT AND PATENT . WITH CHRONIC WOUNDS . WITH COLOSTOMY BAG - SOFT ABD. USES URINAL .MOTHER AT BED SIDE , C/O PAIN GRIMACING HE SAID HE CAN NOT TOLERATE THE PAIN .PLAN OF CARE DISCUSSED AND VERBALIZE UNDERSTANDING - CALL LIGHT WITHIN REACH. ON SAFETY /FALL PRECAUTION PROTOCOL - BED ALARM ON , ON WOUND BED.SUGGESTING TO REVISION OF FREQUENCY OF DILAUDID . WILL REFER TO MD AND WILL CONT. TO MONITOR.
[2018-12-22] MEDS: MULTIVITAMIN-12 10 ML in DEXTROSE 50% 760 ML, AMINO ACIDS 8.5% 760 ML, FAT EMULSION 20%... IV SCH ×4 (20:01)
--- NOTE | 2018-12-22 20:20 | NUR ---
PAGED THE FARM PLANNER DOCTOR - DR. GARCIA FOR PT'S C/O PAIN AND ABOUT SUGGESTION OF PT REGARDING PAIN MEDICATION.WILL WAITING FOR CALLBACK.
--- NOTE | 2018-12-22 20:40 | NUR ---
DR. GARCIA CALL BACK - HE SAID CHANGE THE FREQUENCY OF DILAUDID - GIVE IT Q 3H INSTEAD OF 4H.
[2018-12-22] MEDS ORDERED: HYDROmorphone PFS 2 MG/ML SYR ONE (20:49)
--- NOTE | 2018-12-22 22:00 | NUR ---
MADE ROUNDS . NO SIGNS OF ACUTE DISTRESS NOTED AT THIS TIME . PT WATCHING MOVIE CALL LIGHT WITHIN REACH .
[2018-12-23] VITALS: BP 100/60
--- NOTE | 2018-12-23 | NUR ---
MADE ROUNDS . NO SIGNS OF ACUTE DISTRESS NOTED AT THIS TIME . PT. REFUSED FOR CHANGE POSITIONING - WILL CONT. TO MONITOR.
[2018-12-23] MEDS: HYDROmorphone PFS 2 MG/ML SYR IVP PRN ×8 (00:03→23:05)
--- NOTE | 2018-12-23 02:00 | NUR ---
MADE ROUND . SLEEPING - CHEST RISE AND FALL EQUALLY . CALL LIOGHT WITHIN REACH - WILL CONT. TO MONITOR.
--- NOTE | 2018-12-23 04:00 | NUR ---
MADE ROUND.RESP. EVEN AND UNLABORED . NO SIGNS OF ACUTE DISTRESS NOTED AT THIS TIME . VOIDED FREELY PER URINAL .
[2018-12-23] MEDS: fentaNYL 0.075 MG/HR PATCH TD SCH (06:28)
--- NOTE | 2018-12-23 07:22 | NUR ---
ENDORSED TO AM SHIFT WITH ATABLE CONDITION. REFUSED WOUND ASSESSMENT.
--- NOTE | 2018-12-23 07:30 | NUR ---
RECEIVED REPORT FROM SALES ASSISTANT ENTERTAINMENT AND MEDIA NURSE. PATIENT IS IN STABLE CONDITION. ALERT, AWAKE AND ORIENTED X4. IV TPN INFUSING @ 70ML/HR VIA PICC LINE. TOLERATING WELL. BED IN LOW POSITION. SAFETY MEASURES IN PLACE.
[2018-12-23 08:00] VITALS: BP 96/59
[2018-12-23] MEDS: BLOOD GLUCOSE MONITORING 1 DEV DEV FS SCH ×2 (09:00→21:00)
[2018-12-23] MEDS: DULoxetine 30 MG CAPDR PO SCH (09:00)
[2018-12-23] MEDS: LACTOBACILLUS RHAMNOSUS GG 1 EACH CAP PO SCH (09:00)
--- NOTE | 2018-12-23 10:00 | NUR ---
PATIENT IS AWAKE AND ALERT. NO S/S OF DISTRESS NOTED. PT REFUSED TO BE REPOSITIONED. EDUCATED ABOUT THE IMPORTANCE OF REPOSITIONING. WILL CONTINUE TO MONITOR.
--- NOTE | 2018-12-23 14:00 | NUR ---
PATIENT IS AWAKE AND ALERT. NO S/S OF DISTRESS NOTED. PT REFUSED TO BE REPOSITIONED. EDUCATED ABOUT THE IMPORTANCE OF REPOSITIONING. WILL CONTINUE TO MONITOR.
[2018-12-23 16:00] VITALS: BP 90/53
--- NOTE | 2018-12-23 16:00 | NUR ---
PATIENT IS AWAKE AND ALERT, ORIENTED X4. NO S/S OF DISTRESS NOTED. PT REFUSED TO BE REPOSITIONED. EDUCATED ABOUT THE IMPORTANCE OF REPOSITIONING. WILL CONTINUE TO MONITOR.
--- NOTE | 2018-12-23 18:00 | NUR ---
PATIENT IS AWAKE AND ALERT. NO S/S OF DISTRESS NOTED. PT REFUSED TO BE REPOSITIONED. EDUCATED ABOUT THE IMPORTANCE OF REPOSITIONING. WILL CONTINUE TO MONITOR.
--- NOTE | 2018-12-23 19:20 | NUR ---
REPORT GIVEN TO NIGHT NURSE. PATIENT IS IN STABLE CONDITION.
--- NOTE | 2018-12-23 19:25 | NUR ---
RECEIVED BEDSIDE REPORT FROM AM SHIFT RN AURORA, FOR PT'S CONTINUITY OF CARE. PT IS AAOX4, FAMILY MEMBER AT BEDSIDE, WATCHING TV, ON ROOM AIR, C/O PAIN. PT VERBALIZED UNDERSTANDING OF [employer] PRODUCTION MACHINE OPERATOR ROUTINE, PT TEACHING GIVEN AND ENCOURAGED PT FOR NON-PHARMACOLOGICAL TECHNIQUES TO RELIEVE PAIN. SAFETY MEASURES IN PLACE. CONTACT PRECAUTION IN PLACE. CALL LIGHT IS WITHIN REACH. WILL CONTINUE TO MONITOR PT.
--- NOTE | 2018-12-23 19:54 | NUR ---
PT C/O SEVERE PAIN. ADMINISTERED PRN IV PUSH PAIN MEDICATION. ADMINISTERED SCHEDULED CONTINUOUS DRIP IV TPN. WILL CONTINUE TO MONITOR PT.
[2018-12-23] MEDS: MULTIVITAMIN-12 10 ML in DEXTROSE 50% 760 ML, AMINO ACIDS 8.5% 760 ML, FAT EMULSION 20%... IV SCH ×4 (19:55)
--- NOTE | 2018-12-23 23:05 | NUR ---
PT C/O UNRELIEVED PAIN. ADMINISTERED PRN IV PUSH PAIN MEDICATION ORDERED. REASSESSED PATH SITE, PATENT AND INTACT. WILL CONTINUE TO MONITOR PT.
[2018-12-24] VITALS: BP 100/54
--- NOTE | 2018-12-24 01:07 | NUR ---
PT C/O SEVERE PAIN. PT TEACHING GIVEN REGARDING PAIN MEDICATION ADMINISTRATION TIMES/FREQUENCY. OFFERED NON-PHARMACOLOGICAL TECHNIQUES FOR PAIN RELIEF. PT VERBALIZED UNDERSTANDING.
[2018-12-24] MEDS: HYDROmorphone PFS 2 MG/ML SYR IVP PRN ×6 (02:05→23:12)
--- NOTE | 2018-12-24 02:05 | NUR ---
PT C/O SEVERE PAIN. REQUESTED FOR PAIN MEDICATION. ADMINISTERED PRN IVPUSH PAIN MEDICATION ORDERED. INFORMED PT THAT HOUSE SUP AND I LOOKED FOR THE SAME SIZE OF COLOSTOMY BAG HE HAS ON, AND COULD NOT FIND ONE IN [facility]. PT REFUSED FOR COLOSTOMY BAG TO BE SWITCHED TO A DIFFERENT SIZE DT PRIOR COMPLICATIONS WITH DIFFERENT SIZES. INFORMED PT THAT [facility] IS CLOSED AND COULD CALL AND INQUIRE IN AM. PT AGREED TO WAIT AND VERBALIZED UNDERSTANDING. WILL CONTINUE TO MONITOR PT.
--- NOTE | 2018-12-24 05:37 | NUR ---
PT C/O SEVERE PAIN, REQUESTED FOR PAIN MEDICATION. ADMINISTERED PRN IVP PAIN MEDICATION ORDERED. PT TOLERATED IT WELL. WILL CONTINUE TO MONITOR PT.
--- NOTE | 2018-12-24 06:37 | NUR ---
PT REPORTS PAIN AT TOLERABLE LEVEL. WILL ENDORSE TO AM SHIFT RN FOR PT'S CONTINUITY OF CARE.
--- NOTE | 2018-12-24 07:30 | NUR ---
RECEIVED REPORT FROM BARKEEPER NURSE. PT AAOX4, C/O 10/19 BACK PAIN, WILL MEDICATED PER ORDER. NOTED LT UA PICC LINE DOUBLE LUMEN, BOTH PORTS FLUSHING WITH NO RESISTANCE, CONNECTED TO RUN IVF PER ORDER, DRESSING IS CLEAN, DRY AND INTACT. RESPIRATIONS EVEN AND UNLABORED ON RA. ABD SOFT, ACTIVE BS, LBM 12/24. PT ON FALL RISK PRECAUTIONS, SAFETY MEASURES IN PLACE, CALL LIGHT WITHIN REACH. REVIEWED POC WITH PT, PT VERBALIZED UNDERSTANDING.
[2018-12-24 08:00] VITALS: BP 102/55
[2018-12-24] MEDS: LACTOBACILLUS RHAMNOSUS GG 1 EACH CAP PO SCH (08:38)
[2018-12-24] MEDS: DULoxetine 30 MG CAPDR PO SCH (08:38)
--- NOTE | 2018-12-24 08:38 | NUR ---
PT REFUSED CYMBALTA AND LACTOBACILLUS PER ORDER, STILL REFUSED AFTER EXPLANATION OF RISKS AND BENEFITS. OFFERED TO TURN PT AND ASSESS WOUNDS, BUT PT REFUSED AFTER MULTIPLE ATTEMPTS.
[2018-12-24] MEDS: BLOOD GLUCOSE MONITORING 1 DEV DEV FS SCH ×2 (08:41→21:42)
--- NOTE | 2018-12-24 11:25 | NUR ---
NOTIFIED DR. WISEMAN REGARDING PT'S REFUSAL OF MEDICATIONS, NO NEW ORDERS RECEIVED.
--- NOTE | 2018-12-24 12:30 | NUR ---
ADMINISTERED DILAUDID PER ORDER FOR LEVEL 8/10 BACK AND NECK PAIN. PT IS AWARE OF INDICATIONS AND POTENTIAL SIDE EFFECTS. WILL CONTINUE TO MONITOR. Addendum: 12/24/18 at 1603 by Idalia Mane RN MEDICATION WAS SCANNED BUT UNABLE TO SAVE, PHARMACIST/OMI NOTIFIED.
--- NOTE | 2018-12-24 13:00 | NUR ---
PT REFUSED TO BE TURNED, AFTER SEVERAL ATTEMPTS. PAIN MEDICATION GIVEN PRIOR TO CHANGING COLOSTOMY BAG, PT HAD 1 SEMI-FORMED, LARGE BOWEL MOVEMENT. GIVEN CHICKEN NOODLE SOUP PER PT REQUEST.
--- NOTE | 2018-12-24 13:56 | NUR ---
12/24/18 RD FOLLOW UP COMPLETED PLEASE REFER TO NUTRITION ASSESSMENT UNDER CARE ACTIVITY FOR ESTIMATED NUTRITIONAL NEEDS. 1. CONTINUE REGULAR DIET 2. RECOMMEND ELECARE JR TID 3. ENCOURAGE FAMILY TO BRING SUPPLEMENTS AND FOOD FROM HOME IF APPROPRIATE PER MD 4. RECOMMEND INCREASING TPN INFUSION WHEN MEDICALLY APPROPRIATE TO MEET 75% OF ESTIMATED NEEDS 5. CONTINUE RODRIGUEZ BID 6. ENCOURAGE INCREASING PO INTAKE 7. RD WILL FOLLOW UP 2-3 DAYS, HIGH RISK ALEXEI JOHNSTON RD
--- NOTE | 2018-12-24 15:00 | NUR ---
PT REPORTED THAT HE TRIED THE SHAKE BUT UNABLE TO FINISH. WILL NOTIFY MANAGER DELI.
[2018-12-24 16:00] VITALS: BP 105/53
--- NOTE | 2018-12-24 16:45 | NUR ---
ENDORSED PT TO GÉNESIS ROBERTSON. PT HAS NO SIGNS OF DISTRESS AT THIS TIME.
--- NOTE | 2018-12-24 19:30 | NUR ---
Received endorsement from AM shift RN; patient A/Ox4, able to make needs known, Slovak speaking, bedbound. Patient is talking with mother Saray and aunt; introduced self, updated board. No SOB or distress noted, on room air. On contact precautions for MDRO wounds; observed and maintained. IV site on left upper arm PICC line, double lumen, running TPN at 70mL/hr. 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 Bed in the lowest position, call light within reach. Initial assessment done. Will continue to monitor.
[2018-12-24] MEDS: MULTIVITAMIN-12 10 ML in DEXTROSE 50% 760 ML, AMINO ACIDS 8.5% 760 ML, FAT EMULSION 20%... IV SCH ×4 (19:37)
--- NOTE | 2018-12-24 20:30 | NUR ---
TPN administered; no distress noted.
--- NOTE | 2018-12-24 22:04 | NUR ---
Checks made; no SOB or distress noted.
[2018-12-25] VITALS: BP 106/67
--- NOTE | 2018-12-25 00:10 | NUR ---
Rounds done; patient resting comfortably, visible chest rise and fall noted.
--- NOTE | 2018-12-25 00:50 | NUR ---
Patient refused wound care and repositioning at this time. Risks for non-compliance explained; patient still refused.
--- NOTE | 2018-12-25 02:10 | NUR ---
Rounds done; patient watching TV; no distress noted.
[2018-12-25] MEDS: HYDROmorphone PFS 2 MG/ML SYR IVP PRN ×7 (02:19→21:30)
--- NOTE | 2018-12-25 04:12 | NUR ---
Checks made; no distress noted.
--- NOTE | 2018-12-25 06:10 | NUR ---
Vitals stable, due meds given. Will endorse to AM shift RN for continuity of care.
[2018-12-25 07:18] LABS: BASOPHILS # (AUTO) 0.1 K/uL (0.00-0.22); BASOPHILS % (AUTO) 0.6 % (0.0-2.0); EOSINOPHILS # (AUTO) 0.9 K/uL (0-0.4); EOSINOPHILS % (AUTO) 8.1 % (0.0-4.0); HEMATOCRIT 27.3 % (36-52); HEMOGLOBIN 8.8 g/dL (12.0-18.0); LYMPHOCYTES # (AUTO) 1.5 K/uL (2.0-11.5); LYMPHOCYTES % (AUTO) 13.9 % (20.5-51.1); MEAN CORPUSCULAR HEMOGLOBIN 29 pg (27-31); MEAN CORPUSCULAR HGB CONC 32 g/dL (33-37); MONOCYTES # (AUTO) 1.1 K/uL (0.8-1.0); MONOCYTES % (AUTO) 10.6 % (1.7-9.3); NEUTROPHILS # (AUTO) 7.2 K/uL (1.8-7.7); NEUTROPHILS % (AUTO) 66.8 % (42.2-75.2); PLATELET COUNT (AUTO) 442 K/uL (140-450); RED CELL DISTRIBUTION WIDTH 16.2 % (11.6-13.7); WHITE BLOOD COUNT (AUTO) 10.8 K/uL (4.8-10.8)
--- NOTE | 2018-12-25 07:20 | NUR ---
RECEIVED REPORT FROM ADHESIVE BONDING MACHINE OPERATOR NURSE JAYSHREE FOR CONTINUITY OF CARE. PT IN STABLE CONDITION. RESPIRATIONS EVEN AND UNLABORED, ROOM AIR. IV INTACT AND PATENT. SAFETY MEASURES IN PLACE. BED IN LOW POSITION. BED ALARM ON. CALL LIGHT AT BEDSIDE. WILL CONTINUE TO MONITOR.
[2018-12-25 07:23] LABS: ALBUMIN 1.4 g/dL (3.4-5.0); ANION GAP 11.6 (8-16); CARBON DIOXIDE 25.7 mmol/L (21-32); CREATININE 0.8 mg/dL (0.7-1.3); POTASSIUM 4.3 mmol/L (3.5-5.1); TOTAL BILIRUBIN 0.2 mg/dL (0.0-1.0)
[2018-12-25 08:00] VITALS: BP 106/61
--- NOTE | 2018-12-25 08:30 | NUR ---
GAVE PRN PAIN MEDICATION PER PT REQUEST AND ORDERED DUE MEDICATIONS. PT IN STABLE CONDITION. BED IN LOW POSITION. BED ALARM ON. CALL LIGHT AT BEDSIDE. WILL CONTINUE TO MONITOR.
[2018-12-25] MEDS: DULoxetine 30 MG CAPDR PO SCH ×2 (08:32→08:43)
[2018-12-25] MEDS: LACTOBACILLUS RHAMNOSUS GG 1 EACH CAP PO SCH ×2 (08:32→08:43)
[2018-12-25] MEDS: BLOOD GLUCOSE MONITORING 1 DEV DEV FS SCH ×2 (08:42→20:56)
[2018-12-25 10:02] LABS: PHOSPHORUS 5.1 mg/dL (2.5-4.9)
--- NOTE | 2018-12-25 10:17 | NUR ---
PT LYING IN BED SLEEP AT THIS TIME. RESPIRATIONS EVEN AND UNLABORED, ROOM AIR. BED IN LOW POSITION. BED ALARM ON. CALL LIGHT AT BEDSIDE. WILL CONTINUE TO MONITOR.
--- NOTE | 2018-12-25 12:03 | NUR ---
GAVE PRN PAIN MEDICATION PER PT REQUEST. PT TOLERATED WELL. WILL CONTINUE TO MONITOR. CALL LIGHT AT BEDSIDE. BED IN LOW POSITION. BED ALARM ON.
--- NOTE | 2018-12-25 14:26 | NUR ---
PT WATCHING TV AT THIS TIME. RESPIRATIONS EVEN AND UNLABORED. WILL CONTINUE TO MONITOR. CALL LIGHT AT BEDSIDE. BED IN LOW POSITION. BED ALARM ON.
[2018-12-25 16:00] VITALS: BP 104/56
--- NOTE | 2018-12-25 16:14 | NUR ---
PT WATCHING TV AT THIS TIME IN STABLE CONDITION. WILL CONTINUE TO MONITOR. CALL LIGHT AT BEDSIDE. BED IN LOW POSITION. BED ALARM ON.
--- NOTE | 2018-12-25 19:21 | NUR ---
GAVE REPORT TO ASSOCIATE PROFESSOR OF ART HISTORY NURSE DANIELLE FOR CONTINUITY OF CARE. PT IN STABLE CONDITION.
--- NOTE | 2018-12-25 19:22 | NUR ---
RECEIVED BEDSIDE REPORT FROM DAY SHIFT NURSE CLEMENTE RN, PT STABLE, NO DISTRESS NOTED, CENTRAL LINE TO L UPPER ARM, INTACT, PATENT INFUSING WELL, PT ON ROOM AIR, NO SOB NOTED, PT HAS MULTIPLE WOUND, WOULD NOT LET NURSE ASSESS. PT RESTING, CALL LIGHT WITHIN REACH, WILL CONTINUE TO MONITOR.
[2018-12-25] MEDS: MULTIVITAMIN-12 10 ML in DEXTROSE 50% 760 ML, AMINO ACIDS 8.5% 760 ML, FAT EMULSION 20%... IV SCH ×4 (19:25)
--- NOTE | 2018-12-25 19:25 | NUR ---
TPN BAG CHANGED, PT TOLERATING TPN WELL, PT RESTING, FAMILY AT BEDSIDE, WILL CONTINUE TO MONITOR.
--- NOTE | 2018-12-25 21:30 | NUR ---
PT STATED HAVING PAIN, AND SPASM TO THE BACK, PT MOTHER ASKED IF PT CAN HAVE HIS PAIN MEDICATION EARLY, PAIN MEDICATION ADMINISTERED, PT TOLERATED WELL, NO DISTRESS NOTED, CALL LIGHT WITHIN REACH, WILL CONTINUE TO MONITOR.
[2018-12-25] MEDS: fentaNYL 0.075 MG/HR PATCH TD SCH (21:37)
[2018-12-26] VITALS: BP 98/57
--- NOTE | 2018-12-26 00:13 | NUR ---
PT REFUSED WOUND ASSESSMENT AND TURNS Q2H, TEACHING DONE, PT STILL REFUSES, PT RESTING NO DISTRESS NOTED, CALL LIGHT WITHIN REACH, WILL CONTINUE TO MONITOR.
[2018-12-26] MEDS: ONDANSETRON 4 MG/2 ML VIAL IVP PRN (00:33)
[2018-12-26] MEDS: HYDROmorphone PFS 2 MG/ML SYR IVP PRN ×8 (00:33→22:06)
--- NOTE | 2018-12-26 00:33 | NUR ---
CHECKED ON PT, PT STATED HAVING PAIN, WAS VOMITTING, ZOFRAN AND PAIN MEDICATION DILAUDID ADMINISTERED, PT TOLERATED WELL, NO DISTRESS NOTED, CALL LIGHT WITHIN REACH, WILL CONTINUE TO MONITOR.
--- NOTE | 2018-12-26 02:26 | NUR ---
CHECKED ON PT, PT SLEEPING, NO DISTRESS NOTED, CALL LIGHT WITHIN REACH, WILL CONTINUE TO MONITOR.
--- NOTE | 2018-12-26 03:34 | NUR ---
PT C/O PAIN, MEDICATION PER DR ORDERED ADMINISTERED, PT TOLERATED WELL, NO DISTRESS NOTED, CALL LIGHT WITHIN REACH, WILL CONTINUE TO MONITOR.
--- NOTE | 2018-12-26 05:38 | NUR ---
PT REFUSED COLOSTOMY EMPTYING, PT STATED DON'T TOUCH ME.
--- NOTE | 2018-12-26 07:15 | NUR ---
ENDORSED PT TO DAY SHIFT NURSE CLEMENTE CAPPS, PT STABLE, NO DISTRESS NOTED, CALL LIGHT WITHIN REACH.
--- NOTE | 2018-12-26 07:16 | NUR ---
REPORT RECEIVED BY EDUCATIONAL MANAGER NURSE FOR CONTINUITY OF CARE. RESPIRATIONS EVEN AND UNLABORED, IV INTACT AND PATENT, SAFETY MEASURES IN PLACE, BED IN LOW POSITION, BED ALARM ON, CALL LIGHT AT BEDSIDE, WILL CONTINUE TO MONITOR.
[2018-12-26 08:00] VITALS: BP 98/55
[2018-12-26] MEDS: DULoxetine 30 MG CAPDR PO SCH (09:00)
[2018-12-26] MEDS: LACTOBACILLUS RHAMNOSUS GG 1 EACH CAP PO SCH (09:00)
[2018-12-26] MEDS: BLOOD GLUCOSE MONITORING 1 DEV DEV FS SCH ×2 (09:40→22:13)
--- NOTE | 2018-12-26 09:40 | NUR ---
GAVE ORDERED DUE MEDICATIONS AT THIS TIME. PT TOLERATED WELL. WILL CONTINUE TO MONITOR. BED IN LOW POSITION. BED ALARM ON. CALL LIGHT AT BEDSIDE.
--- NOTE | 2018-12-26 12:38 | NUR ---
GAVE PRN PAIN MEDICATION AT THIS TIME PER PT REQUEST. PT TOLERATED WELL. WILL CONTINUE TO MONITOR. BED IN LOW POSITION. BED ALARM ON. CALL LIGHT AT BEDSIDE.
--- NOTE | 2018-12-26 14:23 | NUR ---
PT SLEEP AT THIS TIME. RESPIRATIONS EVEN AND UNLABORED. WILL CONTINUE TO MONITOR. BED IN LOW POSITION. BED ALARM ON. CALL LIGHT AT BEDSIDE.
[2018-12-26 16:00] VITALS: BP 106/58
--- NOTE | 2018-12-26 18:02 | NUR ---
PT WATCHING TV AT THIS TIME IN STABLE CONDITION. WILL CONTINUE TO MONITOR. BED IN LOW POSITION. BED ALARM ON. CALL LIGHT AT BEDSIDE.
--- NOTE | 2018-12-26 19:00 | NUR ---
PT REFUSED REPOSITIONING AND CLEANING THROUGH OUT SHIFT.
--- NOTE | 2018-12-26 19:29 | NUR ---
GAVE REPORT TO CARTON LINER NURSE DANIELLE FOR CONTINUITY OF CARE. PT IN STABLE CONDITION.
--- NOTE | 2018-12-26 19:30 | NUR ---
RECEIVED BEDSIDE REPORT FROM DAY SHIFT NURSE CLEMENTE RN, PT STABLE, NO DISTRESS NOTED, CENTRAL LINE TO L UPPER, PATENT, INTACT, INFUSING WELL, PT ON ROOM AIR, NO SOB NOTED, PT RESTING, NO C/O PAIN AT THIS MOMENT, INITIAL ASSESSMENT DONE, ALL SAFETY PRECAUTION MET, CALL LIGHT WITHIN REACH, WILL CONTINUE TO MONITOR.
[2018-12-26] MEDS: MULTIVITAMIN-12 10 ML in DEXTROSE 50% 760 ML, AMINO ACIDS 8.5% 760 ML, FAT EMULSION 20%... IV SCH ×4 (20:59)
--- NOTE | 2018-12-26 21:00 | NUR ---
PT STATED TO DO BLOOD GLUCO CHECK LATER WHEN HIS PAIN MEDICATION IS DUE, PT STATED IT HURTS AND HE DOES NOT WANT IT RIGHT NOW.
--- NOTE | 2018-12-26 23:06 | NUR ---
CHECKED ON PT, PT RESTING, NO DISTRESS NOTED, CALL LIGHT WITHIN REACH, V/S TAKEN, WILL CONTINUE TO MONITOR.
[2018-12-27] VITALS: BP 103/48
[2018-12-27] MEDS: HYDROmorphone PFS 2 MG/ML SYR IVP PRN ×7 (01:24→21:34)
--- NOTE | 2018-12-27 01:24 | NUR ---
PT STATED HAVING PAIN, MEDICATION ADMINISTERED, PT TOLERATED WELL, PT REFUSED ALL WOUND CARE AND REPOSITIONING, CALL LIGHT WITHIN REACH, WILL CONTINUE TO MONITOR.
--- NOTE | 2018-12-27 04:50 | NUR ---
PICC LINE DRESSING CHANGED, PT TOLERATED WELL, NO DISTRESS NOTED, CALL LIGHT WITHIN REACH, WILL CONTINUE TO MONITOR.
--- NOTE | 2018-12-27 06:55 | NUR ---
PT REFUSED BLOOD DRAW.
--- NOTE | 2018-12-27 07:22 | NUR ---
ENDORSED PT TO DAY SHIFT NURSE NICOLAS RN, PT STABLE, NO DISTRESS NOTED, CALL LIGHT WITHIN REACH.
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
[2018-12-27 08:00] VITALS: BP 99/65
[2018-12-27] MEDS: DULoxetine 30 MG CAPDR PO SCH (08:33)
[2018-12-27] MEDS: LACTOBACILLUS RHAMNOSUS GG 1 EACH CAP PO SCH (08:33)
[2018-12-27] MEDS: BLOOD GLUCOSE MONITORING 1 DEV DEV FS SCH ×2 (08:33→21:34)
--- NOTE | 2018-12-27 08:37 | NUR ---
PATIENT COMPLAINS OF GENERALIZED PAIN. DILAUDID GIVEN AT THIS TIME. REFUSED OTHER SCHEDULED 0900 MEDICATIONS. WILL CONTINUE TO MONITOR.
--- NOTE | 2018-12-27 11:38 | NUR ---
PATIENT COMPLAINS OF SEVERE GENERALIZED PAIN. DILAUDID GIVEN AT THIS TIME. REFUSES TO BE TURNED AT THIS TIME. WILL CONTINUE TO MONITOR.
[2018-12-27] MEDS ORDERED: fentaNYL 0.1 MG/HR PATCH TD SCH (11:50)
--- NOTE | 2018-12-27 13:00 | NUR ---
PATIENT LYING DOWN IN BED WATCHING TV. NO DISTRESS NOTED. PAIN WITHIN TOLERABLE. WILL CONTINUE TO MONITOR.
--- NOTE | 2018-12-27 15:33 | NUR ---
12/27/18 RD FOLLOW UP COMPLETED PLEASE REFER TO NUTRITION ASSESSMENT UNDER CARE ACTIVITY FOR ESTIMATED NUTRITIONAL NEEDS. 1. CONTINUE REGULAR DIET 2. RECOMMEND ELECARE JR TID 3. ENCOURAGED PT TO RECORD DAILY FOOD INTAKE ON A FOOD LOG 4. ENCOURAGE FAMILY TO BRING SUPPLEMENTS AND FOOD FROM HOME IF APPROPRIATE PER MD 5. RECOMMEND INCREASING TPN INFUSION WHEN MEDICALLY APPROPRIATE TO MEET 75% OF ESTIMATED NEEDS 6. CONTINUE RODRIGUEZ BID 7. ENCOURAGE INCREASING PO INTAKE 8. RD WILL FOLLOW UP 2-3 DAYS, HIGH RISK ALEXEI JOHNSTON RD
--- NOTE | 2018-12-27 15:49 | NUR ---
PATIENT IN BED WITH MOTHER AT THE BED SIDE. PAIN MEDICATION GIVEN TO PATIENT WILL FOLLOW UP
[2018-12-27 16:00] VITALS: BP 100/50
--- NOTE | 2018-12-27 19:26 | NUR ---
GAVE REPORT TO CONTRACTOR FIELD HAULING NURSE FOR CONTINUITY OF CARE. PATIENT IN STABLE CONDITION.
[2018-12-27] MEDS: MULTIVITAMIN-12 10 ML in DEXTROSE 50% 760 ML, AMINO ACIDS 8.5% 760 ML, FAT EMULSION 20%... IV SCH ×4 (19:45)
--- NOTE | 2018-12-27 21:00 | NUR ---
RECEIVED REPORT FROM [employer] OPERATOR NURSE, PT WITH PICC LINE ON UPPER ARM, INTACT AND INFUSING TPN AT 70 ML HR, PATENT. PATIENT EATING WITH MINIMAL APPETITE, MORE SNACKS THAN MEALS. PATIENT WITH MULTIPLE I & D WOUNDS ON LOWER EXTREMITIES, PATIENT REFUSING TO BE ASSESSED, WITH LIGHT BLANKET OVER BODY. W/ MOM AT BEDSIDE. CALL LIGHT WITHIN REACH. BED PLACED ON LOW POSITION.
--- NOTE | 2018-12-27 22:00 | NUR ---
PATIENT REFUSED CHLORHEXIDINE BATH ON THE PICC LINE. EXPLAINED THE RISKS AND BENEFITS PT VERBALIZED UNDERSTANDING
--- NOTE | 2018-12-27 23:00 | NUR ---
CHECKED ON PT, PT RESTING, NO DISTRESS NOTED, CALL LIGHT WITHIN REACH, V/S TAKEN, WILL CONTINUE TO MONITOR.
[2018-12-28] VITALS: BP 119/58
[2018-12-28] MEDS: HYDROmorphone PFS 2 MG/ML SYR IVP PRN ×9 (00:39→23:58)
--- NOTE | 2018-12-28 00:39 | NUR ---
PT STATED HAVING PAIN, MEDICATION ADMINISTERED,PT TOLERATED WELL, WILL REASSESS LATER. PT REFUSED ALL WOUND CARE AND REPOSITIONING, CALL LIGHT WITHIN REACH, WILL CONTINUE TO MONITOR.
--- NOTE | 2018-12-28 03:19 | NUR ---
PT C/O OF PAIN, ADMINISTERED PAIN MED. WILL REASSESS LATER. PT TOLERATED WELL. EXPLAINED THE SIDE EFFECTS OF THE MEDICATION. PT VERBALIZED UNDERSTANDING.
--- NOTE | 2018-12-28 05:16 | NUR ---
PT SLEEPING, DOES NOT WANT TO BE DISTURBED, PT VERBALIZED
--- NOTE | 2018-12-28 06:54 | NUR ---
PT IN STABLE CONDITION WILL ENDORSE TO NEXT SHIFT
--- NOTE | 2018-12-28 07:10 | NUR ---
RECEIVED PT FROM HELPER MARBLE FINISHER NURSEMIKE, PT IS AWAKE AND LYING ON THE BED WITH SIDE RAILS UP AND CALL LIGHT WITHIN REACH, FALL AND SAFETY PRECAUTION ENFORCED, PERIPHERAL LINE ON THE LEFT UA, DOUBLE LUMEN WITH ONE LUMEN WITH TPN INFUSING AT 70ML/HR AND OTHER LUMEN ON SALINE LOCK, COLOSTOMY IN PLACE, RT BKA NOTED AND LEFT LEG WOUND NOTED AND REINFORCED WITH DRESSING, NO SIGN OF DISTRESS NOTED AND WILL CONTINUE TO MONITOR PT.
[2018-12-28 08:00] VITALS: BP 102/53
[2018-12-28] MEDS: BLOOD GLUCOSE MONITORING 1 DEV DEV FS SCH ×2 (09:27→21:54)
[2018-12-28] MEDS: DULoxetine 30 MG CAPDR PO SCH (09:28)
--- NOTE | 2018-12-28 09:28 | NUR ---
ADMINISTERED ORAL MEDICATION. EDUCATED PATIENT ON INDICATION AND SIDE EFFECTS. PATIENT TOLERATED WELL. BED IN LOW POSITION. CALL LIGHT WITHIN REACH
[2018-12-28 09:40] LABS: BASOPHILS # (AUTO) 0.1 K/uL (0.00-0.22); BASOPHILS % (AUTO) 0.7 % (0.0-2.0); EOSINOPHILS # (AUTO) 0.9 K/uL (0-0.4); EOSINOPHILS % (AUTO) 7.9 % (0.0-4.0); HEMATOCRIT 26.2 % (36-52); HEMOGLOBIN 8.6 g/dL (12.0-18.0); LYMPHOCYTES # (AUTO) 1.6 K/uL (2.0-11.5); LYMPHOCYTES % (AUTO) 13.5 % (20.5-51.1); MEAN CORPUSCULAR HEMOGLOBIN 29 pg (27-31); MEAN CORPUSCULAR HGB CONC 33 g/dL (33-37); MEAN CORPUSCULAR VOLUME 86.9 fL (80-94); MONOCYTES % (AUTO) 8.6 % (1.7-9.3); NEUTROPHILS % (AUTO) 69.3 % (42.2-75.2); PLATELET COUNT (AUTO) 406 K/uL (140-450); RED BLOOD CELL COUNT(AUTO) 3.01 MIL/uL (4.20-6.10); RED CELL DISTRIBUTION WIDTH 16.4 % (11.6-13.7); WHITE BLOOD COUNT (AUTO) 11.6 K/uL (4.8-10.8)
--- NOTE | 2018-12-28 12:17 | NUR ---
PT WAS GIVEN DILAUDID FOR A PAIN RATE OF 9/10 VIA IV PUSH, BP IS 106/56, PULSE IS 115, WILL MONITOR PT.
--- NOTE | 2018-12-28 13:20 | NUR ---
PATIENT IS RESTING ON BED. REFUSED TO BE REPOSITIONED. WATCHING TV. BED IN LOW POSITION. CALL LIGHT IS WITHIN REACH. INSTRUCTED TO USE CALL LIGHT FOR ANY ASSISTANCE.
--- NOTE | 2018-12-28 15:26 | NUR ---
PT WAS GIVEN DILAUDID FOR A PAIN RATE OF 8/10, BP IS 115/56, PULSE IS 112, NO SIGN OF DISTRESS NOTED AND MOTHER ON THE BEDSIDE. WILL RE-ASSESS PAIN AND MONITOR PT.
[2018-12-28 16:00] VITALS: BP 115/56
--- NOTE | 2018-12-28 18:37 | NUR ---
ADMINISTERED DILAUDID FOR PAIN 10/19 VIA IVP. EDUCATED PATIENT ON INDICATION AND SIDE EFFECTS. PATIENT VERBALIZED UNDERSTANDING. PATIENT TOLERATED WELL. CALL LIGHT WITHIN REACH. BED IN LOW POSITION. MOM AT BEDSIDE.
--- NOTE | 2018-12-28 19:05 | NUR ---
ENDORSED PT TO PATIENT NAVIGATOR NURSEMIKE FOR CONTINUITY OF CARE.
--- NOTE | 2018-12-28 19:07 | NUR ---
RECEIVED REPORT FROM COLLEAGUE HUMANITIES DEPARTMENT CHAIR NURSE, PT WITH PICC LINE ON UPPER ARM, INTACT AND INFUSING TPN AT 70 ML HR, PATENT. PATIENT EATING WITH MINIMAL APPETITE, MORE SNACKS THAN MEALS. PATIENT WITH MULTIPLE I & D WOUNDS ON LOWER EXTREMITIES, PATIENT REFUSING TO BE ASSESSED, WITH LIGHT BLANKET OVER BODY. W/ MOM AT BEDSIDE, BUT PATIENT HAD EMOTIONAL PROBLM W/ MOTHER. PATIENT WAS RAISING HIS VOICE WITH MOTHER.CALL LIGHT WITHIN REACH. BED PLACED ON LOW POSITION.
[2018-12-28] MEDS: MULTIVITAMIN-12 10 ML in DEXTROSE 50% 760 ML, AMINO ACIDS 8.5% 760 ML, FAT EMULSION 20%... IV SCH ×4 (20:42)
--- NOTE | 2018-12-28 20:43 | NUR ---
HE REFUSED TO BE GIVEN FENTANYL PATCH WILL TRY AGAIN LATER. EXPLAINED THE RISKS AND BENEFITS PT ACKNOWLEDGED
--- NOTE | 2018-12-28 20:48 | NUR ---
PATIENT RAISING HIS VOICE WITH ME WHEN EXPLAINED ON THE DILAUDID THAT I COULD NOT GIVE IT TO HIM BECAUSE IT IS NOT DUE.
--- NOTE | 2018-12-28 20:51 | NUR ---
PT REFUSED FOR BLOOD SUGAR TO BE TAKEN, WILL TAKE LATER SOON I GIVE THE DILAUDID. EXPLAINED THE RISKS AND BENEFITS. PT ACKNOWLEDGED
--- NOTE | 2018-12-28 21:00 | NUR ---
RE-ASSESSMENT DONE ON THE FENTANYL PATCH PLACED 3 DAYS AGO 12/25/18. PT STILL FEELS PAIN VERBALIZED BY PATIENT HIGH 9/10, WITH DILAUDID IV TO BE GIVEN LATER PER FREQUENCY
[2018-12-28] MEDS: fentaNYL 0.1 MG/HR PATCH TD SCH (21:07)
--- NOTE | 2018-12-28 21:07 | NUR ---
DURAGESIC PATCH APPLIED TO RIGHT UPPER CHEST. PT NOW COMPLYING WITH TX
--- NOTE | 2018-12-28 21:31 | NUR ---
GIVEN HIM THE DILAUDID. PT TOLERATED WEEL. WILL REASSESS LATER. PT SAID HAVING 9/10 BACK PAIN
--- NOTE | 2018-12-28 23:58 | NUR ---
PT SCREAMING, DEMANDING TO TALK TO DOCTOR. PER PT HIS PAIN IS 10/10, KEEP ON CALLING EVERY 5 MINS. TAKED IT OVER BUT PATIENT REFUSED. WILL GIVE DILAUDID EARLY ONLY ONE TIME. PATIENT IS SCREAMING IN PAIN AND BODY SHAKING.
[2018-12-29] VITALS: BP 111/56
[2018-12-29] MEDS: HYDROmorphone PFS 2 MG/ML SYR IVP PRN ×7 (03:08→21:54)
--- NOTE | 2018-12-29 04:47 | NUR ---
PT SLEEPING NOW BUT EASILY AROUSABLE WILL CHECK LATER
--- NOTE | 2018-12-29 07:15 | NUR ---
RECEIVED REPORT FROM PHYSICS TUTOR NURSE AT BEDSIDE. PATIENT IS AWAKE, ALERT AND ORIENTED X4, LYING IN BED. RESPIRATION EVEN AND UNLABORED. PICC LINE INTACT AND PATENT TO MLOINA WITH TPN INFUSING AT 70ML/HR. TOLERATING WELL. NO S/S OF DISTRESS NOTED. CALL LIGHT WITHIN REACH. WILL CONTINUE TO MONITOR PATIENT.
[2018-12-29 08:00] VITALS: BP 107/56
--- NOTE | 2018-12-29 08:58 | NUR ---
WENT INTO THE ROOM WITH 2 LIBRARY HELPER AND WARP TIER KLEVER TO CHECK PATIENT WELL BEING AND TO ENCOURAGE PATIENT TO REPOSITION , PATIENT RIGHT AWAY SAID, PLEASE LEAVE ME ALONE I DONT WANT TO BE TOUCH THIS IS THE ONLY TIME I HAVE TO REST I JUST WOKE UP AND I DONT WANT TO DEAL WITH ANYTHING. I KNOW WHAT IS GOING ON AND I WANT TO GO BACK TO SLEEP, NOTED SHEET WITH STAIN, BUT PATIENT REFUSED LINEN TO BE CHANGE, BATHROOM CLEAN NO SMELL, WILL ASK ENGINEERING TO CHECK BATHROOM FOR ANY LEAK, KLEVER STILL STAY IN THE ROOM AND WILL TALK TO PATIENT 1:1 Addendum: 12/30/18 at 0854 by Leonor Prieto RN CAROL ROD CHECKED THE BATHROOM , NO FINDINGS NOTED, BATHROOM FUNCTIONING WELL.
[2018-12-29] MEDS: BLOOD GLUCOSE MONITORING 1 DEV DEV FS SCH ×2 (09:00→21:59)
[2018-12-29] MEDS: DULoxetine 30 MG CAPDR PO SCH (09:00)
--- NOTE | 2018-12-29 09:12 | NUR ---
PATIENT REFUSES CARE FROM STAFF AT THIS TIME. PATIENT STATED HE DOES NOT WANT ANYONE GOING TO HIS ROOM NOW.
--- NOTE | 2018-12-29 09:25 | NUR ---
PATIENT REQUESTED PAIN MEDICATION, DILAUDID GIVEN FOR PAIN 09/18. PT REFUSED REPOSITIONING. WILL CONTINUE TO MONITOR.
--- NOTE | 2018-12-29 13:00 | NUR ---
PATIENT IS ALERT, ORIENTED X4. WATCHING TV AT THIS TIME. NO S/S OF DISTRESS NOTED. REFUSED REPOSITIONING, REFUSED WOUND ASSESSMENT.
--- NOTE | 2018-12-29 15:25 | NUR ---
PATIENT REPORTS SEVERE PAIN, MEDICATED WITH DILAUDID ORDERED. NO S/S OF DISTRESS NOTED. PATIENT IS WATCHING TV AND IPAD. CALL LIGHT WITHIN REACH.
[2018-12-29 16:00] VITALS: BP 90/54
--- NOTE | 2018-12-29 18:48 | NUR ---
PATIENT REPORTS SEVERE PAIN, MEDICATED WITH DILAUDID ORDERED. NO S/S OF DISTRESS NOTED. PATIENT IS WATCHING TV AND IPAD. CALL LIGHT WITHIN REACH. REFUSED REPOSITIONING. WILL ENDORSE TO NIGHT NURSE FOR CONTINUITY OF CARE.
--- NOTE | 2018-12-29 19:11 | NUR ---
REPORT RECEIVED FROM AM NURSE AT BEDSIDE. PT IN STABLE CONDITION. AAOX4. INTRODUCED SELF TO PT. BOARD UPDATED. NO COMPLAINTS OF PAIN. ALREADY MEDICATED. NO SOB. AFEBRILE. PT IS BEDBOUND. PT HAS COLOSTOMY. IV SITE L UA PICC DOUBLE LUMEN PATENT AND INTACT RUNNING TPN@70ML/HR. SKIN WARM, DRY, AND NOT INTACT DUE TO MULTIPLE WOUNDS. SEE WOUND ASSESSMENT. PT HAS WOUND BED LOCKED IN LOW POSITION. CALL CONN WITHIN REACH. SAFETY PRECAUTION IN PLACE. ALL NEEDS MET AT THIS TIME.
--- NOTE | 2018-12-29 20:00 | NUR ---
CALLED FOR ORDER RENEWAL OF ZOFRAN IVP 4MG Q4H PRN. AGREED. CINDA.
[2018-12-29] MEDS: ONDANSETRON 4 MG/2 ML VIAL IVP PRN (20:42)
--- NOTE | 2018-12-29 20:42 | NUR ---
LUCYFRAN GIVEN IVP. TPN HUNG AND RUNNING. PT TOLERATING WELL.
[2018-12-29] MEDS: MULTIVITAMIN-12 10 ML in DEXTROSE 50% 760 ML, AMINO ACIDS 8.5% 760 ML, FAT EMULSION 20%... IV SCH ×4 (20:43)
--- NOTE | 2018-12-29 21:54 | NUR ---
DILAUDID GIVEN FOR 8/10 GENERALIZED PAIN. PT TOLERATED WELL. BS 105. NO INSULIN COVERAGE NEEDED.
[2018-12-30] VITALS: BP 110/51
[2018-12-30] MEDS: HYDROmorphone PFS 2 MG/ML SYR IVP PRN ×6 (00:59→23:04)
--- NOTE | 2018-12-30 00:59 | NUR ---
DILAUDID GIVEN FOR 8/10 GENERALIZED PAIN. PT TOLERATED WELL.
--- NOTE | 2018-12-30 02:30 | NUR ---
PT IN BED WATCHING TV. NO S/S OF DISTRESS NOTED. WILL CONTINUE TO MONITOR.
--- NOTE | 2018-12-30 04:40 | NUR ---
PT SLEEPING COMFORTABLY. NO S/S OF DISTRESS NOTED. RESPIRATIONS EVEN, UNLABORED, AND WNL. WILL CONTINUE TO MONITOR.
--- NOTE | 2018-12-30 05:45 | NUR ---
DILAUDID GIVEN FOR 8/10 PAIN. PT TOLERATED WELL.
[2018-12-30 06:55] LABS: BASOPHILS # (AUTO) 0.1 K/uL (0.00-0.22); BASOPHILS % (AUTO) 0.8 % (0.0-2.0); EOSINOPHILS # (AUTO) 0.9 K/uL (0-0.4); EOSINOPHILS % (AUTO) 7.9 % (0.0-4.0); HEMATOCRIT 26.4 % (36-52); HEMOGLOBIN 8.6 g/dL (12.0-18.0); LYMPHOCYTES # (AUTO) 1.7 K/uL (2.0-11.5); LYMPHOCYTES % (AUTO) 14.2 % (20.5-51.1); MEAN CORPUSCULAR HEMOGLOBIN 29 pg (27-31); MEAN CORPUSCULAR HGB CONC 33 g/dL (33-37); MONOCYTES # (AUTO) 1.4 K/uL (0.8-1.0); MONOCYTES % (AUTO) 11.7 % (1.7-9.3); NEUTROPHILS # (AUTO) 7.8 K/uL (1.8-7.7); NEUTROPHILS % (AUTO) 65.4 % (42.2-75.2); PLATELET COUNT (AUTO) 401 K/uL (140-450); RED CELL DISTRIBUTION WIDTH 16.3 % (11.6-13.7)
--- NOTE | 2018-12-30 06:55 | NUR ---
PT SLEEPING COMFORTABLY BUT AROUSABLE. PT IN STABLE CONDITION.
[2018-12-30 07:11] LABS: ALBUMIN 1.2 g/dL (3.4-5.0); ANION GAP 15.3 (8-16); CARBON DIOXIDE 22.3 mmol/L (21-32); CREATININE 0.9 mg/dL (0.7-1.3); POTASSIUM 3.6 mmol/L (3.5-5.1); TOTAL BILIRUBIN 0.2 mg/dL (0.0-1.0)
--- NOTE | 2018-12-30 07:15 | NUR ---
Received report from pm nurse. Pt resting in bed, no signs of distress. Left upper arm PICC intact & asymptomatic with ongoing TPN @ 70ml/h. Call light within reach.
--- NOTE | 2018-12-30 07:45 | NUR ---
Spoke to blood bank to f/u on blood transfusion order from Dr. Wilson. Per collaborative physician, no order seen. Order clarified with Dr. Wilson, will continue with blood transfusion prior to procedure.
[2018-12-30 08:00] VITALS: BP 97/52
[2018-12-30] MEDS: DULoxetine 30 MG CAPDR PO SCH (09:00)
[2018-12-30] MEDS: BLOOD GLUCOSE MONITORING 1 DEV DEV FS SCH ×2 (09:48→22:00)
--- NOTE | 2018-12-30 11:50 | NUR ---
Received call from blood bank stating blood is ready for pick-up.
--- NOTE | 2018-12-30 12:10 | NUR ---
Initiated blood transfusion at this time. Pt resting in bed, no signs of distress. RN remains at bedside for continuous monitoring.
--- NOTE | 2018-12-30 13:50 | NUR ---
Pt left unit via hospital bed for wound care & debridement at OR, accompanied by 2 OR nurses. Pt in no distress. Left upper arm PICC intact with ongoing blood transfusion.
[2018-12-30] MEDS ORDERED: ESMOLOL 100 MG/10 ML VIAL IV ONE (13:56)
--- NOTE | 2018-12-30 13:57 | NUR ---
12/30/18 RD FOLLOW UP COMPLETED PLEASE REFER TO NUTRITION ASSESSMENT UNDER CARE ACTIVITY FOR ESTIMATED NUTRITIONAL NEEDS. 1. CONTINUE REGULAR DIET 2. RECOMMEND ELECARE JR TID 3. ENCOURAGED PT TO RECORD DAILY FOOD INTAKE ON A FOOD LOG 4. ENCOURAGE FAMILY TO BRING SUPPLEMENTS AND FOOD FROM HOME IF APPROPRIATE PER MD 5. RECOMMEND INCREASING TPN INFUSION WHEN MEDICALLY APPROPRIATE TO MEET75% OF ESTIMATED NEEDS 6. CONTINUE RODRIGUEZ BID 7. ENCOURAGE INCREASING PO INTAKE 8. RD WILL FOLLOW UP 2-3 DAYS, HIGH RISK ALEXEI JOHNSTON RD
[2018-12-30] MEDS ORDERED: MIDAZOLAM 2 MG/2 ML VIAL ONE (13:59)
[2018-12-30] MEDS ORDERED: KETAMINE 500 MG/5 ML VIAL ONE (13:59)
[2018-12-30] MEDS ORDERED: ONDANSETRON 4 MG/2 ML VIAL IVP PRN (14:15)
[2018-12-30] MEDS ORDERED: HYDROmorphone 1 MG/ML AMP IVP PRN (14:15)
--- NOTE | 2018-12-30 15:05 | NUR ---
Pt returned to room 116 via hospital bed s/p dressing change under anesthesia. Report received from Olivia OR nurse. Left upper arm PICC intact with blood transfusion bag almost empty. Pt aaox4, no signs of distress. Call light within reach.
--- NOTE | 2018-12-30 15:10 | NUR ---
Blood transfusion completed at this time. No transfusion reactions noted. Left upper arm PICC flushed with 10ml NS, resumed TPN @ 70ml/h. Call light within reach.
[2018-12-30 16:00] VITALS: BP 118/78
--- NOTE | 2018-12-30 18:50 | NUR ---
Pt c/o 10/19 pain to wounds s/t dressing change. Informed pt that dilaudid is not due for another 1.5hr. Offered non-pharmacological methods of pain mgmt, pt refused & states he needs medication. Spoke to Dr Natarajan on the phone & obtained order for dilaudid 2mg IVP x1. Order noted & carried out. Pt aware & agree.
[2018-12-30] MEDS ORDERED: HYDROmorphone PFS 2 MG/ML SYR IVP SCH (18:51)
--- NOTE | 2018-12-30 19:15 | NUR ---
Report given to pm nurse. Pt resting in bed, no signs of distress, mother at bedside. Call light within reach.
--- NOTE | 2018-12-30 19:16 | NUR ---
REPORT RECEIVED FROM AM NURSE AT BEDSIDE. PT IN STABLE CONDITION. AAOX4. INTRODUCED SELF TO PT AND FAMILY. BOARD UPDATED. PT HAS COMPLAINTS OF PAIN. ALREADY MEDICATED. NO SOB. AFEBRILE. PT IS BEDBOUND. PT HAS COLOSTOMY. IV SITE L UA PICC DOUBLE LUMEN RUNNING TPN@70ML/HR PATENT AND INTACT. SKIN WARM, DRY, AND NOT INTACT DUE TO MULTIPLE WOUNDS. SEE WOUND NOTES. BED LOCKED IN LOW POSITION .CALL CONN WITHIN REACH. SAFETY PRECAUTION IN PLACE. ALL NEEDS MET AT THIS TIME.
[2018-12-30] MEDS: MULTIVITAMIN-12 10 ML in DEXTROSE 50% 760 ML, AMINO ACIDS 8.5% 760 ML, FAT EMULSION 20%... IV SCH ×4 (20:18)
--- NOTE | 2018-12-30 20:18 | NUR ---
TPN HUNG AND RUNNING. PT TOLERATING WELL.
--- NOTE | 2018-12-30 22:00 | NUR ---
BS 101. NO INSULIN COVERAGE NEEDED.
--- NOTE | 2018-12-30 23:04 | NUR ---
DILAUDID GIVEN FOR 9/10 GENERALIZED PAIN. PT TOLERATED WELL.
[2018-12-31] VITALS: BP 130/65
--- NOTE | 2018-12-31 01:45 | NUR ---
PT AWAKE AND ALERT WATCHING TV. NO S/S OF DISTRESS NOTED. WILL CONTINUE TO MONITOR.
[2018-12-31] MEDS: HYDROmorphone PFS 2 MG/ML SYR IVP PRN ×5 (03:02→22:12)
--- NOTE | 2018-12-31 03:02 | NUR ---
DILAUDID GIVEN FOR 9/10 GENERALIZED PAIN. PT TOLERATED WELL.
--- NOTE | 2018-12-31 05:00 | NUR ---
PT SLEEPING COMFORTABLY BUT AROUSABLE. NO S/S OF DISTRESS NOTED. RESPIRATIONS EVEN, UNLABORED, AND WNL. WILL CONTINUE TO MONITOR.
--- NOTE | 2018-12-31 06:51 | NUR ---
DILAUDID GIVEN FOR 11/18 PAIN. PT TOLERATED WELL. Addendum: 12/31/18 at 0700 by Migue Newsome RN PT IN STABLE CONDITION.
--- NOTE | 2018-12-31 07:10 | NUR ---
Received report from pm nurse Migue. Pt resting in bed, watching TV, no signs of distress. Left upper arm IV intact with ongoing TPN @ 70ml/h. Call light within reach.
--- NOTE | 2018-12-31 08:00 | NUR ---
Asked to check pt's vital signs & fingerstick glucose. Pt refused & states he wants to be checked after his next pain med is due. Explained to pt that dilaudid is not due til 1051, and also explained importance of routine vital sign & glucose checks. Offered non-pharmacologic pain mgmt (repositioning, adjusting room temp, distraction), pt cont to refuse & states he can wait until next dilaudid is due. Call light within reach.
[2018-12-31] MEDS: DULoxetine 30 MG CAPDR PO SCH (09:00)
--- NOTE | 2018-12-31 09:33 | NUR ---
Informed pt that he has routine Cymbalta due now for pain mgmt. Pt refused and states that med "doesn't help" and "only dilaudid helps", and it "upsets the stomach". Explained benefits of routine cymbalta. Pt verbalized understanding & cont to refuse. Pt resting quietly in bed, no signs of distress. Call light within reach.
[2018-12-31 11:00] VITALS: BP 94/56
[2018-12-31] MEDS: BLOOD GLUCOSE MONITORING 1 DEV DEV FS SCH ×2 (11:00→20:18)
[2018-12-31 16:00] VITALS: BP 104/55
--- NOTE | 2018-12-31 17:50 | NUR ---
Pt c/o 11/18 gen body pain r/t wounds. Informed pt dilaudid is to soon to be administered per current order. Offered non-pharmacologic interventions for pain mgmt, but pt refused & insist on getting dilaudid. Pt's mother at bedside expressed concern d/t pt refusing to eat dinner d/t pain. Spoke to Dr Adam, informed of pt's & pt's mother's concern. Received telephone order for Dilaudid 2mg IVP x1 now & cont with q4h prn thereafter. Order noted & carried out. Pt agree with POC.
[2018-12-31] MEDS ORDERED: HYDROmorphone 1 MG/ML AMP IVP SCH (18:00)
--- NOTE | 2018-12-31 19:15 | NUR ---
Report given to pm nurse Fareed. Pt resting in bed, no signs of distress.
--- NOTE | 2018-12-31 19:16 | NUR ---
RECEIVED BEDSIDE REPORT FROM DAY SHIFT NURSE. PT IN STABLE CONDITION. AAOX4. INTRODUCED SELF TO PT AND FAMILY. BOARD UPDATED. NO SOB. AFEBRILE. PT IS BEDBOUND. PT HAS COLOSTOMY. IV SITE L UA PICC DOUBLE LUMEN RUNNING TPN@70ML/HR PATENT AND INTACT. SKIN WARM, DRY, AND NOT INTACT DUE TO MULTIPLE WOUNDS. SEE WOUND NOTES. BED LOCKED IN LOW POSITION .CALL CONN WITHIN REACH. SAFETY PRECAUTION IN PLACE. ALL NEEDS MET AT THIS TIME.
[2018-12-31] MEDS: MULTIVITAMIN-12 10 ML in DEXTROSE 50% 760 ML, AMINO ACIDS 8.5% 760 ML, FAT EMULSION 20%... IV SCH ×4 (20:11)
--- NOTE | 2018-12-31 20:18 | NUR ---
BS CHECKED, 77. NO INSULIN COVERAGE NEEDED. TPN GIVEN MD ORDERED, PT TOLERATED WELL.
[2018-12-31] MEDS: fentaNYL 0.1 MG/HR PATCH TD SCH (20:55)
--- NOTE | 2018-12-31 20:55 | NUR ---
REMOVED OLD FENTANYL AND APPLIED NEW FENTANYL ON LEFT SHOULDER. PT TOLERATED WELL. WILL CONTINUE TO MONITOR.
--- NOTE | 2018-12-31 22:12 | NUR ---
PT C/O 11/18 WOUND PAIN. GIVEN DILAUDID MD ORDERED. PT REFUSED TO ASSESS WOUND AND CHANGE POSITION .
[2019-01-01] VITALS: BP 117/60
--- NOTE | 2019-01-01 | NUR ---
VS CHECKED, WITHIN PT BASELINE,
[2019-01-01] MEDS: HYDROmorphone PFS 2 MG/ML SYR IVP PRN ×7 (01:18→20:47)
--- NOTE | 2019-01-01 01:18 | NUR ---
PT C/O 11/18 PAIN, TALKED TO DR. GARCIA. CHANGE CHANGE DILAUDID ORDER TO Q3H. GIVEN DILAUDID MD ORDERED. PT TOLERATED WELL.
--- NOTE | 2019-01-01 04:15 | NUR ---
PT C/O 10/19 PAIN, GIVEN DILAUDID MD ORDERED. PT TOLERATED WELL.
--- NOTE | 2019-01-01 07:20 | NUR ---
RECEIVED BEDSIDE REPORT FROM FINISH INSPECTOR NURSE FOR CONTINUITY OF CARE. PATIENT IS AWAKE AND RESTING ON BED. STATED HIS PAIN IS WITHIN TOLERABLE LIMIT AND JUST RECEIVED PAIN MED. RESPIRATION EVEN AND UNLABORED ON RA. NO SIGNS OF DISTRESS NOTED. PICC LINE DOUBLE LUMENS ON LFA, INTACT AND CLEAN, INFUSING PER MD ORDER. BURN ON BODY NOTED, AND R BKA NOTE, PATIENT REFUSED TO OPEN THE BLANKET FOR SKIN ASSESSMENT AND REFUSED TO TURN ON WOUND BED AND CRIED "OH PLEASE DON'T! IT HURTS ME WHEN THE BED INFLATING AND DEFLATING." SKIN CARE EDUCATION PROVIDED AND PATIENT SAID OK, BUT INSISTED NOT WANTING THE WOUND BED ON AND SKIN ASSESSMENT.OSTOMY BAG IN PLACE, EMPTY AT THIS TIME. PATIENT IS CONTINENT AND ABLE TO USE THE URANAL BY BEDSIDE. PATIENT IS BEDREST. FALL RISK PROTOCOL IN PLACE. DISCUSSED PLAN OF CARE WITH PATIENT AND PATIENT SAID OK. CONTACT PRECAUTION IN PLACE AND SIGN POSTED BY DOOR. SAFETY MEASURES IN PLACE. BED IN LOW POSITION AND CALL LIGHT WITHIN REACH. INSTRUCTED PATIENT TO USE THE CALL LIGHT FOR ANY ASSISTANCE AND PATIENT WAS AWARE.
[2019-01-01 08:00] VITALS: BP 99/50
[2019-01-01] MEDS: DULoxetine 30 MG CAPDR PO SCH (09:00)
[2019-01-01] MEDS: BLOOD GLUCOSE MONITORING 1 DEV DEV FS SCH ×3 (09:30→21:15)
--- NOTE | 2019-01-01 09:31 | NUR ---
CHECKED BLOOD GLUCOSE AND IT RESULTED AT 95. NO INSULIN COVERAGE NEEDED. PATIENT REFUSED CYMBALTA AND STATED, "IT MAKES ME THROW UP. I CANT SWALLOW IT." MEDICATION EDUCATION PROVIDED TO PATIENT. PATIENT INSISTED NOT WANTING THE MED. PATIENT REFUSED TO BE REPOSITIONED AND WOUND ASSESSMENT. WOUND CARE EDUCATION AND SKIN CARE EDUCATION PROVIDED. PATIENT INSISTED ON NOT WANTING IT. ENCOURAGED PATIENT TO EAT HIS BREAKFAST TO PROMOTE ADEQUATE NUTRIENT AND WOUND HEALING. PATIENT SAID HE WILL EAT IT SLOWLY. PATIENT STATES THAT PAIN IS TOLERABLE AT THIS TIME. PATIENT IS RESTING IN BED. SAFETY MEASURES: HOB ELEVATED, BED IN LOWEST POSITION, CALL LIGHT WITHIN REACH, AND BED ALARM ACTIVATED.
--- NOTE | 2019-01-01 10:40 | NUR ---
PATIENT LAYING IN BED. NO SIGNS OF DISTRESS AT THIS TIME. GATHERED VS PRIOR TO ADMINISTERING PAIN MEDICATION. VS: BP: 95/51, HR: 119, SPO2: 100, RR: 17, TEMP: 98.4, 9/10 PAIN. ADMINISTERED PAIN MEDICATION PRESCRIBED BY MD. MEDICATION EDUCATION PERFORMED TO PATIENT. PATIENT ABLE TO VERBALIZE UNDERSTANDING AND TEACH BACK. SAFETY MEASURES: HOB ELEVATED, BED IN LOWEST POSITION, CALL LIGHT WITHIN REACH, AND BED ALARM ACTIVATED.
--- NOTE | 2019-01-01 11:30 | NUR ---
PATIENT LYING IN BED RESTING. PATIENT IS ON THE PHONE WITH A FRIEND. ABLE TO MAKE NEEDS KNOWN. NO COMPLAINTS OR CONCERNS AT THIS TIME. NO SIGNS OR SYMPTOMS OF RESPIRATORY DISTRESS. SAFETY MEASURES: HOB ELEVATED, BED IN LOWEST POSITION, CALL LIGHT WITHIN REACH, AND BED ALARM ACTIVATED. WILL CONTINUE TO MONITOR
--- NOTE | 2019-01-01 13:33 | NUR ---
PATIENT REFUSED WOUND CARE AND REPOSITIONING. SKIN CARE AND WOUND CARE EDUCATION PROVIDED. PATIENT INSISTED NOT BEING REPOSITIONED OR WOUND CARE. PATIENT DOES NOT WANT THE WOUND BED TO TURN ON AND STATED, "WHEN ITS INFLATING, IT HURTS ME." EDUCATION PROVIDED AND PATIENT INSISTED ON NOT DOING IT. SAFETY MEASURES: HOB ELEVATED, BED IN LOWEST POSITION, CALL LIGHT WITHIN REACH, AND BED ALARM ACTIVATED.
[2019-01-01] MEDS: ONDANSETRON 4 MG/2 ML VIAL IVP PRN ×2 (14:12→21:06)
--- NOTE | 2019-01-01 14:12 | NUR ---
PATIENT COMPLAINED OF 9/10 PAIN ON HIS BACK AND LEG. CHECKED VITAL SIGNS PRIO TO ADMINISTERING. VS: BP: 114/61, Hr: 132, TEMP: 98.5, RR: 18, AND SPO2 99%. ADMINISTERED PRN PAIN MED VIA IV PUSH. PATIENT ALSO COMPLAINED OF NAUSEA AND VOMITING. ADMINISTERED ZOFRAN PRESCRIBED. PROVIDED PATIENT WITH VOMIT BAG. PT TOLERATED WELL. ALL MEDICATION EDUCATION PROVIDED. PT VERBALIZED UNDERSTANDING. ENCOURAGED PATIENT TO CONSUME HIS LUNCH. SAFETY MEASURES: HOB ELEVATED, BED IN LOWEST POSITION, CALL LIGHT WITHIN REACH, BED ALARM ACTIVATED.
--- NOTE | 2019-01-01 15:18 | NUR ---
PATIENT IN BED WATCHING TV. ABLE TO MAKE NEEDS KNOWN. NO COMPLAINTS OR CONCERNS AT THIS TIME. PT SHOWS NO SIGNS OR SYMPTOMS OF DISTRESS. RESPIRATIONS EVEN AND UNLABORED WITH NO SOB PRESENT. SAFETY MEASURES: HOB ELEVATED, BED IN LOWEST POSITION, CALL LIGHT WITHIN REACH, AND BED ALARM ACTIVATED. WILL CONTINUE TO MONITOR.
[2019-01-01 16:00] VITALS: BP 97/49
--- NOTE | 2019-01-01 17:25 | NUR ---
01/01/19 RD F/U COMPLETED. PLEASE REFER TO NUTRITION PROGRESS NOTES UNDER CARE ACTIVITY FOR ESTIMATED NUTRITIONAL NEEDS. RD RECOMMENDATIONS: 1. CONTINUE REGULAR DIET 2. CONTINUE ELECARE JR TID 3. ENCOURAGED PT TO RECORD DAILY FOOD INTAKE ON A FOOD LOG 4. ENCOURAGE FAMILY TO BRING SUPPLEMENTS AND FOOD FROM HOME IF APPROPRIATE PER MD 5. RECOMMEND INCREASING TPN INFUSION WHEN MEDICALLY APPROPRIATE TO MEET 75% OF ESTIMATED NEEDS RD WILL FOLLOW UP 2-3 DAYS, HIGH RISK CELESTINA DENT MBA, RD
--- NOTE | 2019-01-01 17:38 | NUR ---
PATIENT COMPLAINED OF PAIN BEING 9/10. VS WERE GATHERED PRIOR TO ADMINISTRATION. VS: 101/54 BP, 98.3 TEMP, SPO2 98% ,RR 17, HR 132. PRN PAIN MEDICATION ADMINISTERED TO PT. PT TOLERATED WELL. MEDICATION EDUCATION PERFORMED TO PATIENT. PT ABLE TO VERBALIZE UNDERSTANDING. NO COMPLICATIONS OR CONCERNS AT THIS TIME. BED IN LOW POSITION, CALL LIGHT WITHIN REACH, AND HOB ELEVATED. BED ALARM ACTIVATED.
--- NOTE | 2019-01-01 19:15 | NUR ---
RECEIVED REPORT FORM REGGIE RN DAYSHIFT NURSE AT BEDSIDE FOR CONTINUITY OF CARE, PT INSTABLE CONDITION.
--- NOTE | 2019-01-01 19:19 | NUR ---
ENDORSED TO NIGHTSHIFT AT BEDSIDE. PATIENT IS STABLE WITH NO SIGNS OR SYMPTOMS OF DISTRESS.
--- NOTE | 2019-01-01 20:00 | NUR ---
PT ON WOUND BED, PICC LINE INTACT AND FLUSHED PATENT. TPN HUNG ORDERED AND RUNNING AT 70MLS/HR. PT C/O OF SEVERE PAIN , BUT MADE AWARE THAT HIS PAIN MEDICATION IS NOT DUE YET, PT VERBALIZED UNDERSTANDING V/S FOLLOWS: T 100.3 P 130 R 18 B/P 112/65 02 985 ON ROOM AIR. PT NOTED SPITTING U SOME SALIVA DUE TO THE DRY HEAVES, BUT NOT ANY VOMIT. PT C/OF NAUSEA AND WAS OFFERED ZOFRAN IVP AND HE SAID MAYBE LATER. ALL CONTACT, FALL AND ASPIRATION PRECAUTIONS IN PLACE.
[2019-01-01] MEDS: MULTIVITAMIN-12 10 ML in DEXTROSE 50% 760 ML, AMINO ACIDS 8.5% 760 ML, FAT EMULSION 20%... IV SCH ×4 (20:45)
--- NOTE | 2019-01-01 21:15 | NUR ---
PT C/O OF NAUSEA AND WAS GIVEN IVP ZOFRAN. PT ALSO C/O OF SEVERE GENERALIZED PAIN AND WAS GIVEN IVP DILAUDID. RETAKE OF TEMP IS 100.1 PULSE REMAINS TACHY. WILL CALL INTERIOR DESIGN PRINCIPAL PHYSICIAN TO ALTER HIM AND ASK FOR TYLENOL ORDER FOR A FEVER.
--- NOTE | 2019-01-01 22:30 | NUR ---
CHARLIE RIBERA MACHINE ASSEMBLER, RECEIVED A CALL BACK FROM MACHINE ASSEMBLER MD KLEIN CALLED BACK, UPDATED ON PT STATUS. NEW ORDERS RECEIVED TO PLACE PT BACK ON TELEMETRY DUE TO ST RHYTHM AND OTHER ORDERS FOR PRN TYLENOL FOR FEVER. WILL CONTINUE TO MONITOR PT FOR PAIN, INCREASE IN HR AND TEMPERATURE.
[2019-01-01] MEDS ORDERED: ACETAMINOPHEN 325 MG TAB PO PRN (23:15)
--- NOTE | 2019-01-01 23:45 | NUR ---
PT ON WOUND BED AND MADE AWARE THAT HE WILL CONTINUE ON TELEMETRY MONITORING DUE TO INCREASED HR. PT SAID " I DON'T KNOW WHY I FEEL FINE." V/S FOLLOWS: T 99.5 P 120, R 18 B/P 86/43 02 98% ON ROOM AIR. ALL CONTACT, FALLS AND ASPIRATION PRECAUTIONS IN PLACE.
[2019-01-02] VITALS: BP 86/43
[2019-01-02] MEDS: HYDROmorphone PFS 2 MG/ML SYR IVP PRN ×7 (00:22→18:53)
--- NOTE | 2019-01-02 00:30 | NUR ---
PT C/O OF SEVERE GENERALIZED PAIN, GIVEN IVP DILAUDID. PT DECLINED TO BE TURNED OR HAVE BANDAGES CHANGED.
--- NOTE | 2019-01-02 03:30 | NUR ---
PT IN BED, HE REFUSED TO LET STAFF LOOK AT OR EMPTY HIS COLOSTOMY BAG, HE JUST SAID IT'S OK. PT HAD VERY POOR INTAKE, PT HAD 2 EPISODES OF DRY HEAVES, HE TOOK VERY LITTLE IF ANY BY MOUTH. PT DID NOT USE URINAL THIS SHIFT.
--- NOTE | 2019-01-02 04:00 | NUR ---
PT C/O SEVERE GENERALIZED PAIN, WAS GIVEN IVP DILAUDID. V/S FOLLOWS: T 99.0 P 126 R 18 B/P 93/44 02 99% ON ROOM AIR.
--- NOTE | 2019-01-02 06:58 | NUR ---
PT HAD 500 OUT PUT OF DARK NANY URINE.
--- NOTE | 2019-01-02 07:25 | NUR ---
RECEIVED BEDSIDE REPORT FROM MACHINIST APPRENTICE WOOD NURSE FOR CONTINUITY OF CARE. PATIENT IS AWAKE AND RESTING ON BED. STATED HIS PAIN IS WITHIN TOLERABLE LIMIT AND RECEIVED PAIN MED. RESPIRATION EVEN AND UNLABORED ON RA. NO SIGNS OF DISTRESS NOTED. PICC LINE DOUBLE LUMENS ON LFA, INTACT AND CLEAN, INFUSING PER MD ORDER. BURN ON BODY NOTED, AND R BKA NOTE, PATIENT REFUSED TO OPEN THE BLANKET FOR SKIN ASSESSMENT AND REFUSED TO TURN ON WOUND BED. SKIN CARE EDUCATION PROVIDED AND PATIENT VERBALIZED OK, BUT INSISTED NOT WANTING THE WOUND BED ON AND SKIN ASSESSMENT.OSTOMY BAG IN PLACE, PATIENT REFUSED TO OPEN HIS BLANKET FOR ASSESSMENT AND STATED "IT'S FINE. I WILL LET YOU KNOW IF IT NEEDS TO BE EMPTY." PATIENT IS CONTINENT AND ABLE TO USE THE URANAL BY BEDSIDE. PATIENT IS BEDREST. FALL RISK PROTOCOL IN PLACE. DISCUSSED PLAN OF CARE WITH PATIENT AND PATIENT SAID OK. CONTACT PRECAUTION IN PLACE AND SIGN POSTED BY DOOR. SAFETY MEASURES IN PLACE. TELE MONITOR ATTACHED. BED IN LOW POSITION AND CALL LIGHT WITHIN REACH. INSTRUCTED PATIENT TO USE THE CALL LIGHT FOR ANY ASSISTANCE AND PATIENT WAS AWARE.
[2019-01-02 08:00] VITALS: BP 98/60
[2019-01-02] MEDS: DULoxetine 30 MG CAPDR PO SCH (09:00)
--- NOTE | 2019-01-02 09:06 | NUR ---
PATIENT LAYING IN BED UPON ARRIVAL. ABLE TO MAKE NEEDS KNOWN. PATIENT DID NOT WANT HIS CYMBALTA BECAUSE, "IT MAKES ME THROW UP." ENCOURAGED PATIENT TO TAKE MEDICATION BUT HE INSISTED ON NOT TAKING IT. WHEN TAKING HIS BLOOD SUGAR, PATIENT SAID, "I DO NOT WANT TO DO THIS." EDUCATED PATIENT ON THE PURPOSE BEHIND TAKING HIS BLOOD SUGAR. PATIENT INSISTED ON STILL NOT HAVING HIS SUGAR CHECKED. SAFETY MEASURES IN PLACE: HOB ELEVATED, BED IN LOWEST POSITION, TELE MONITOR ATTACHED, BED ALARM ON, AND CALL LIGHT WITHIN REACH.
--- NOTE | 2019-01-02 10:01 | NUR ---
PATIENT CALLED SAYING THAT HE HAD A PAIN LEVEL OF 9/10. VITAL SIGNS WERE GATHERED PRIO TO PRN PAIN MEDICATION. VS: 110/60 BP, HR 130, TEMP 99.1, RR 17, SPO2 99%. ADMINISTERED MEDICATION VIA IV PUSH. PATIENT TOLERATED WELL. MEDICATION EDUCATION PERFORMED. PATIENT ABLE TO TEACH BACK AND VERBALIZE UNDERSTANDING. SAFETY MEASURES: HOB ELEVATED, BED IN LOWEST POSITION, BED ALARM ON, CALL LIGHT WITHIN REACH, TELE MONITOR ATTACHED.
--- NOTE | 2019-01-02 11:30 | NUR ---
PATIENT RESTING IN BED. ABLE TO MAKE NEEDS KNOWN. NO COMMENTS OR CONCERNS AT THIS MOMENT. RESPIRATIONS EVEN AND UNLABORED WITH NO SOB OR RESPIRATORY DISTRESS. SAFETY MEASURES: HOB ELEVATED, BED IN LOWEST POSITION, BED ALARM ACTIVATED, CALL LIGHT WITHIN REACH.
--- NOTE | 2019-01-02 12:05 | NUR ---
PATIENT REFUSED TO TAKE THE 1200 VITAL SIGNS AND STATED " NOT NOW, COME BACK LATER." EDUCATION PROVIDED AND PATIENT INSISTED NOT WANT TO TAKE VITAL SIGNS NOW.
[2019-01-02 13:46] VITALS: BP 108/61
--- NOTE | 2019-01-02 13:46 | NUR ---
PATIENT CALLED OUT AND COMPLAINED SAYING THAT HE HAD A PAIN RATING OF 9/10. VITAL SIGNS WERE TAKEN PRIOR TO ADMINISTRATION. VS: BP 108/61, HR 104, SPO2 99%, RR 17, AND TEMP 98.8. ADMINISTERED PRN PAIN MEDICATION PRESCRIBED BY MD. EDUCATED PATIENT ON MEDICATION REGIMEN. PATIENT ABLE TO TEACH BACK AND VERBALIZE UNDERSTANDING. SAFETY MEASURES: HOB ELEVATED, BED IN LOWEST POSITION, CALL LIGHT WITHIN REACH, TELE MONITORS ATTACHED, AND BED ALARM ACTIVATED.
--- NOTE | 2019-01-02 15:15 | NUR ---
PATIENT IN BED RESTING. ABLE TO MAKE NEEDS KNOWN. NO CONCERNS AT THIS MOMENT. RESPIRATIONS EVEN AND UNLABORED WITH NO SOB OR RESPIRATORY DISTRESS. SAFETY MEASURES: HOB ELEVATED, CALL LIGHT WITHIN REACH, BED IN LOWEST POSITION, TELE MONITOR ATTACHED, BED ALARM ACTIVATED. WILL CONTINUE TO MONITOR
--- NOTE | 2019-01-02 15:46 | NUR ---
ENDORSED REPORT TO NURSE REED AT BEDSIDE. PATIENT AWAKE AND RESTING IN BED. ABLE TO MAKE NEEDS KNOWN. NO CONCERNS OR QUESTIONS AT THIS MOMENT. RESPIRATIONS EVEN AND UNLABORED WITH NO SOB OR RESPIRATORY DISTRESS. SKIN WARM AND DRY TO TOUCH. SAFETY MEASURES: HOB ELEVATED, BED IN LOWEST POSITION, CALL LIGHT WITHIN REACH, BED ALARMS ACTIVATED, AND TELE MONITORS ATTACHED. PATIENT IS IN STABLE CONDITION.
--- NOTE | 2019-01-02 15:50 | NUR ---
RECEIVED REPORT FROM NURSE REGGIE. PATIENT AWAKE AND RESTING IN BED. ABLE TO MAKE NEEDS KNOWN. NO CONCERNS OR QUESTIONS AT THIS MOMENT. RESPIRATIONS EVEN AND UNLABORED WITH NO SOB OR RESPIRATORY DISTRESS.PATIENT IS IN STABLE CONDITION. SKIN WARM AND DRY TO TOUCH. SAFETY MEASURES. BED ALARMS ACTIVATED, AND TELE MONITORS ATTACHED. HOB ELEVATED, BED IN LOWEST POSITION, CALL LIGHT WITHIN REACH.
[2019-01-02 16:00] VITALS: BP 131/98
--- NOTE | 2019-01-02 16:00 | NUR ---
PATIENT IN BED RESTING. BED IN LOWEST POSITION, TELE MONITOR ATTACHED, BED ALARM ACTIVATED. WILL CONTINUE TO MONITOR ABLE TO MAKE NEEDS KNOWN. NO CONCERNS AT THIS MOMENT. RESPIRATIONS EVEN AND UNLABORED WITH NO SOB OR RESPIRATORY DISTRESS. SAFETY MEASURES: HOB ELEVATED, CALL LIGHT WITHIN REACH,
--- NOTE | 2019-01-02 19:30 | NUR ---
SHIFT REPORT GIVEN TO CHECK AIRMAN NURSE. PATIENT AWAKE AND RESTING IN BED. ABLE TO MAKE NEEDS KNOWN. NO CONCERNS OR QUESTIONS AT THIS MOMENT. RESPIRATIONS EVEN AND UNLABORED WITH NO SOB OR RESPIRATORY DISTRESS. SKIN WARM AND DRY TO TOUCH. SAFETY MEASURES: HOB ELEVATED, BED IN LOWEST POSITION, CALL LIGHT WITHIN REACH, BED ALARMS ACTIVATED, AND TELE MONITORS ATTACHED. PATIENT IS IN STABLE CONDITION.
--- NOTE | 2019-01-02 19:31 | NUR ---
RECEIVED BEDSIDE REPORT FROM DAY RN. PT IS IN ROOM CC OF PAIN PER RN VENICE POMPA AT 1858 PT REFUSED PHYSICAL ASSESSMENT AND VITAL SIGNS. RA RESPIRATIONS ARE EQUAL AND UNLABORED. 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 HAS COLOSTOMY. MOLINA PICC LINE TPN INFUSING PER ORDERS. ON CONTACT ISOLATION FOR MRSA OF WOUND. WILL CONTINUE TO MONITOR AND WILL ATTEMPT TO PERFORM MY ASSESSMENT AGAIN LATER. POC DISCUSSED WITH PT AND FAMILY AT BEDSIDE. CALL LIGHT IS WITHIN REACH.
--- NOTE | 2019-01-02 19:50 | NUR ---
PAGED GALLERY ASSISTANT MD RIGGINS REGARDING PT IN PAIN 11/18 CRYING AND MOTHER AT BEDSIDE EXPRESSING CONCERN. HR 160 PT REFUSING VITAL SIGNS AND BLOOD SUGAR. LAST PAIN MEDICATION GIVEN AT 1858
[2019-01-02 20:00] VITALS: BP 112/51
--- NOTE | 2019-01-02 20:23 | NUR ---
PER DONG ORDER TO GIVE DILAUDID 2MG IVP ONCE NOW. AND F/U TOMORROW WITH ADMITTING MD REGARDING HEART RATE AND PAIN CONTROL.
--- NOTE | 2019-01-02 20:31 | NUR ---
VS: 112/51 HR 150 TEMP 98.8. ADMINISTERED DILAUDID IVP PER ORDERS AND HANG NEW BAG OF TPN. PT STILL IRRITABLE AND REFUSING ASSESSMENT. WILL CONTINUE TO MONITOR.
[2019-01-02] MEDS: MULTIVITAMIN-12 10 ML in DEXTROSE 50% 760 ML, AMINO ACIDS 8.5% 760 ML, FAT EMULSION 20%... IV SCH ×4 (20:38)
[2019-01-02] MEDS ORDERED: HYDROmorphone PFS 2 MG/ML SYR IVP SCH (21:00)
[2019-01-02] MEDS: BLOOD GLUCOSE MONITORING 1 DEV DEV FS SCH (21:00)
[2019-01-02] MEDS ORDERED: VANCOMYCIN PER PHARMACY MC PRN (21:15)
--- NOTE | 2019-01-02 21:15 | NUR ---
MD RODRIGUEZ IN TO SEE PATIENT. INFORMED HIM ABOUT PT BEING TRANSFERRED LAST NIGHT TO TELE FOR HIGH HEART RATE BUT NO CHANGE IN MEDICATIONS OR NEW LABS. CURRENT VS 112/51 HR 150. CONCERN PT IS GOING [facility] NEW ORDERS RECEIVED WILL F/U. PT REMAINS ON TELE MONITOR. WILL MONITOR CLOSELY.
[2019-01-02] MEDS ORDERED: VANCOMYCIN 1GM/DEXT 5% PREMIX 200 ML IV SCH (22:00)
[2019-01-02] MEDS ORDERED: VANCOMYCIN 1,000 MG VIAL ONE (22:27)
--- NOTE | 2019-01-02 22:38 | NUR ---
VANCO NOW INFUSING PER ORDERS. ALL NEEDS MET AT THIS TIME. MOTHER AND AUNT ARE AT BEDSIDE.
[2019-01-03] VITALS: BP 115/49
[2019-01-03] MEDS: HYDROmorphone PFS 2 MG/ML SYR IVP PRN ×9 (00:03→22:38)
--- NOTE | 2019-01-03 00:03 | NUR ---
VS: 115/49 HR 142 TEMP 98.7 ORAL ADMINISTERED PRN DILAUDID FOR GEN PAIN 11/18. CALL LIGHT IS WITHIN REACH. SAFETY MEASURES ARE IN PLACE. WILL CONTINUE TO MONITOR.
--- NOTE | 2019-01-03 01:04 | NUR ---
PATIENT IS MORE CALM AND COOPERATIVE COMPARED TO EARLIER THIS SHIFT. PT STILL REFUSED WOUND ASSESSMENT. STATES ONLY DR CAICEDO CAN TOUCH HIS WOUNDS. WOUND EDUCATION GIVEN. PT VERBALIZED UNDERSTANDING. PT ALSO REFUSED TO BE REPOSITION. WILL CONTINUE TO MONITOR.
--- NOTE | 2019-01-03 02:15 | NUR ---
ADMINISTERED PRN DILAUDID D/T SEVERE BACK PAIN AND SHAMEKA LEG PAIN. PT CRYING AND YELLING, "HELP, SOMEBODY PLEASE HELP ME." ATTEMPTED TO TALK TO PATIENT AND DISTRACT HIM BUT KEPT YELLING AND CRYING, "I CANNOT HANDLE THE PAIN ANY MORE, PLEASE GOD, SOMEONE HELP ME." VS: 114/49 HR 143. RR 20 SAT 97% RA ATTEMPT TO ASSESS LUNG SOUNDS PATIENT REFUSED CXR SHOWED POSSIBLE R PNA. PT RECEIVED VANCO AND HAS LUIS MERREM Q8H.
[2019-01-03 04:00] VITALS: BP 112/67
--- NOTE | 2019-01-03 04:00 | NUR ---
VITAL SIGNS ARE WITHIN NORMAL LIMITS. ALL SAFETY MEASURES ARE IN PLACE
--- NOTE | 2019-01-03 05:13 | NUR ---
ADMINISTERED IVP DILAUDID FOR BACK PAIN 10/ VSS. CALL LIGHT IS WITHIN REACH
[2019-01-03] MEDS ORDERED: MEROPENEM 1,000 MG VIAL IV ONE (05:19)
[2019-01-03] MEDS: MEROPENEM 1,000 MG in NACL 0.9% 100 ML IV SCH ×3 (05:32→21:22)
--- NOTE | 2019-01-03 07:29 | NUR ---
GAVE BEDSIDE REPORT TO DAY SHIFT RN. PT ENDORSED IN STABLE CONDITION.
--- NOTE | 2019-01-03 07:30 | NUR ---
RECEIVED BEDSIDE REPORT FROM INFORMATION COORDINATOR RN FOR CONTINUITY OF CARE. PT IS IN ROOM MOANING OF PAIN, MOANING, "WHY GOD, WHY?" PATIENT AWARE OF NEXT SCHEDULED PAIN MED. PT REFUSED PHYSICAL ASSESSMENT AND VITAL SIGNS AT THIS TIME. PATIENT ON ROOM AIR, RESPIRATIONS ARE EQUAL AND UNLABORED, NO SOB OR DISTRESS NOTED. 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 HAS COLOSTOMY, NOT ALLOWING RN TO VIEW AT THIS TIME D/T PAIN, USES URINAL. MOLINA PICC LINE DOUBLE LUMEN WITH TPN INFUSING ORDERED. ON CONTACT ISOLATION FOR MRSA OF WOUND. UPDATED BOARD. UPDATED PATIENT WITH PLAN OF CARE AND NEED FOR URINE SAMPLE. PATIENT VERBALIZED UNDERSTANDING. SAFETY AND ISOLATION PRECAUTIONS IN PLACE, CALL LIGHT WITHIN REACH, WILL CONTINUE TO MONITOR PATIENT.
[2019-01-03] MEDS: BLOOD GLUCOSE MONITORING 1 DEV DEV FS SCH ×2 (08:15→19:54)
--- NOTE | 2019-01-03 08:15 | NUR ---
PATIENT AGITATED, CRYING AND MOANING IN PAIN, YELLING "WHY, GOD, WHY, WHY ME? I CAN'T HANDLE THIS PAIN". INFORM PATIENT PRN PAIN MEDICATION SCHEDULED. BLOOD SUGAR 112, NO COVERAGE NEEDED. PATIENT MEDICATED FOR 10/10 CHRONIC PAIN WITH PRN PAIN MEDICATION. PATIENT TOLERATED IT. SAFETY AND CONTACT PRECAUTIONS IN PLACE, CALL LIGHT WITHIN REACH, WILL CONTINUE TO MONITOR PATIENT.
[2019-01-03 08:16] VITALS: BP 99/55
[2019-01-03] MEDS: DULoxetine 30 MG CAPDR PO SCH (08:59)
--- NOTE | 2019-01-03 09:30 | NUR ---
PER MILLER, FINANCE ATTORNEY, PATIENT REFUSED AM LABS AT THE MOMENT. STATING "LEAVE ME ALONE". WILL ATTEMPT TO DRAW LABS AGAIN LATER. WILL CONTINUE TO MONITOR PATIENT.
--- NOTE | 2019-01-03 10:58 | NUR ---
PATIENT AGITATED, CRYING AND MOANING IN PAIN, YELLING. INFORMED PATIENT ABOUT LAB DRAW FROM DR. RODRIGUEZ AND INDICATION. ATTEMPTED LAB DRAW. PATIENT REFUSED, STATING "DO IT ALL TOMORROW". WILL FOLLOW UP AND INQUIRE ABOUT IT AGAIN. PATIENT C/O SOB AND PAIN IN RIBS, O2 SAT 100% HR 136, PT REFUSED TO ALLOW RN TO TO TAKE BP. PATIENT REFUSED ASSESSMENT, STATING, "I JUST NEED MY PAIN MEDICATION". PATIENT MEDICATED FOR 10/10 CHRONIC PAIN WITH PRN PAIN MEDICATION. PATIENT TOLERATED IT. SAFETY AND CONTACT PRECAUTIONS IN PLACE, CALL LIGHT WITHIN REACH, WILL CONTINUE TO MONITOR PATIENT.
--- NOTE | 2019-01-03 11:10 | NUR ---
PATIENT'S MOTHER CALLED. UPDATED HER ON PATIENT'S CONDITION AND STATUS. SHE VERBALIZED UNDERSTANDING AND STATED SHE WILL BE IN LATER TO ENCOURAGE AND SPEAK TO PATIENT.
[2019-01-03 13:30] VITALS: BP 114/60
[2019-01-03 16:00] VITALS: BP 103/55
--- NOTE | 2019-01-03 16:00 | NUR ---
STONE DERRICKMAN AND RIGGER IN TO SEE THE PATIENT AND DRAW LABS. PATIENT REFUSING. MOTHER AT BEDSIDE ENCOURAGING PATIENT. RN ALSO ENCOURAGING PATIENT TO ALLOW LAB WITHDRAWS. WILL WAIT FOR PATIENT'S AGREEMENT.
[2019-01-03 16:34] LABS: BASOPHILS # (AUTO) 0.1 K/uL (0.00-0.22); BASOPHILS % (AUTO) 0.3 % (0.0-2.0); EOSINOPHILS # (AUTO) 0.1 K/uL (0-0.4); EOSINOPHILS % (AUTO) 0.3 % (0.0-4.0); HEMATOCRIT 28.5 % (36-52); HEMOGLOBIN 9.1 g/dL (12.0-18.0); LYMPHOCYTES # (AUTO) 1.3 K/uL (2.0-11.5); MEAN CORPUSCULAR HEMOGLOBIN 28 pg (27-31); MEAN CORPUSCULAR HGB CONC 32 g/dL (33-37); MEAN CORPUSCULAR VOLUME 88.8 fL (80-94); MONOCYTES # (AUTO) 2.2 K/uL (0.8-1.0); MONOCYTES % (AUTO) 10.6 % (1.7-9.3); NEUTROPHILS # (AUTO) 17.4 K/uL (1.8-7.7); NEUTROPHILS % (AUTO) 82.8 % (42.2-75.2); PLATELET COUNT (AUTO) 338 K/uL (140-450); RED BLOOD CELL COUNT(AUTO) 3.21 MIL/uL (4.20-6.10); RED CELL DISTRIBUTION WIDTH 16.2 % (11.6-13.7)
[2019-01-03 17:28] LABS: ANION GAP 12.7 (8-16); CARBON DIOXIDE 24.3 mmol/L (21-32); CREATININE 0.9 mg/dL (0.7-1.3); TOTAL BILIRUBIN 0.4 mg/dL (0.0-1.0)
--- NOTE | 2019-01-03 17:49 | NUR ---
PT SLEEPING. PT MOTHER SIGNED CONSENT FOR PROCEDURE WITH DR. CAICEDO, IN THE MORNING.
--- NOTE | 2019-01-03 19:16 | NUR ---
GAVE REPORT TO PM NURSE, PT IS CRYING FOR NEXT PAIN MEDICATION DOSE. NOTIFIED PM NURSE OF WHEN THE NEXT PAIN MEDICATION IS DUE. PT'S MOTHER AT BED SIDE.
--- NOTE | 2019-01-03 19:17 | NUR ---
RECEIVED BEDSIDE REPORT FROM DAY SHIFT RN FOR CONTINUITY OF CARE. PT REFUSED PHYSICAL ASSESSMENT AND VITAL SIGNS AT THIS TIME AND ASKING PAIN MEDICATION. PATIENT ON ROOM AIR, RESPIRATIONS ARE EQUAL AND UNLABORED, NO SOB OR DISTRESS NOTED. 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 HAS COLOSTOMY, NOT ALLOWING RN TO VIEW AT THIS TIME D/T PAIN, USES URINAL. MOLINA PICC LINE DOUBLE LUMEN WITH TPN INFUSING ORDERED. ON CONTACT ISOLATION FOR MRSA OF WOUND. UPDATED BOARD. UPDATED PATIENT WITH PLAN OF CARE AND NEED FOR URINE SAMPLE. PATIENT VERBALIZED UNDERSTANDING. SAFETY AND ISOLATION PRECAUTIONS IN PLACE, CALL LIGHT WITHIN REACH, WILL CONTINUE TO MONITOR PATIENT.
--- NOTE | 2019-01-03 19:45 | NUR ---
PT C/O 09/18 PAIN, VS CHECKED, GIVEN DILAUDID MD ORDERED. GIVEN TPN AND VANCOMYCIN MD ORDERED. BS CHECKED, 102. NO INSULIN COVERAGE NEEDED.
[2019-01-03] MEDS: VANCOMYCIN 750 MG in DEXTROSE 5% 250 ML IV SCH (19:47)
[2019-01-03] MEDS: MULTIVITAMIN-12 10 ML in DEXTROSE 50% 760 ML, AMINO ACIDS 8.5% 760 ML, FAT EMULSION 20%... IV SCH ×4 (19:53)
[2019-01-03 20:00] VITALS: BP 105/61
[2019-01-03] MEDS: fentaNYL 0.075 MG/HR PATCH TD SCH (21:29)
--- NOTE | 2019-01-03 21:30 | NUR ---
GIVEN MERREM, REMOVED OLD FENTANYL PATCH FROM L SHOULDER AND ATTACHED NEW FENTANYL PATCHES ON RIGHT SHOULDER MD ORDERED. PT TOLERATED WELL.
--- NOTE | 2019-01-03 21:53 | NUR ---
PAGED COMPLAINT MANAGER FOR TACHYCARDIA. [phone].
--- NOTE | 2019-01-03 21:58 | NUR ---
RN TALKED TO [address] [address] DOBSON. SAID "HIS TACHYCARDIA IS D/T PAIN, KEEP PAIN MED ORDERED AND LESS THAN 150 HR WILL OK FOR HIM." WILL CONTINUE TO MONITOR.
[2019-01-03 22:23] LABS: MAGNESIUM 2.1 mg/dL (1.8-2.4)
[2019-01-03 22:24] LABS: PHOSPHORUS 3.3 mg/dL (2.5-4.9)
--- NOTE | 2019-01-03 22:38 | NUR ---
PT C/O 09/18 PAIN, GIVEN DILAUDID MD ORDERED. PT TOLERATED WELL.
[2019-01-04] VITALS: BP 103/59
--- NOTE | 2019-01-04 00:30 | NUR ---
PT SLEEPING IN BED. NO PAIN NOTED. WILL CONTINUE TO MONITOR.
--- NOTE | 2019-01-04 01:59 | NUR ---
PT C/O 09/18 PAIN, GIVEN DILAUDID MD ORDERED. PT TOLERATED WELL.
[2019-01-04 04:00] VITALS: BP 116/72
[2019-01-04] MEDS: MEROPENEM 1,000 MG in NACL 0.9% 100 ML IV SCH ×3 (04:50→21:46)
[2019-01-04] MEDS: HYDROmorphone PFS 2 MG/ML SYR IVP PRN ×4 (04:56→20:59)
--- NOTE | 2019-01-04 04:56 | NUR ---
GIVEN MERREM, PT C/O 09/18 PAIN, GIVEN DILAUDID MD ORDERED. PT TOLERATED WELL.
--- NOTE | 2019-01-04 06:55 | NUR ---
PT SLEEPING IN BED. NO ACUTE DISTRESS NOTED.
--- NOTE | 2019-01-04 07:15 | NUR ---
RECEIVED PT FROM AUTO CARE CENTER MANAGER NURSEZENAIDA, PT IS DROWSY AND LYING ONT HE BED WITH SIDE RAILS UP AND CALL LIGHT WITHIN REACH, RT BKA LEFT LEG WOUND WERE NOTED, PICC LINE ON THE LET UA, DOUBLE LUMEN, ONE LUMEN WITH TPN AT 70ML/HR, INFUSING, OTHER LUMEN ON SALINE LOCK, COLOSTOMY IN PLACE, COLOSTOMY BAG NO FECES NOTED, PT IS AROUSABLE AND UTTERS PAIN BUT NOT FULLY COHERENT, WILL CONTINUE TO BE MONITORED.
[2019-01-04 08:00] VITALS: BP 102/61
--- NOTE | 2019-01-04 08:40 | NUR ---
PT IS CONFUSED AND IS SCREAMING, ASKED FOR PAIN MEDICATION AND WAS GIVEN, BP IS 102/61, PULSE IS 128, O2 SATURATION IS 99% ON ROOM AIR AND RESPIRATION IS 16/MIN, TEMP. IS 98.2, WILL RE-ASSESS AND MONITOR PT. PT REFUSED BLOOD GLUCOSE CHECK NOW.
[2019-01-04] MEDS: BLOOD GLUCOSE MONITORING 1 DEV DEV FS SCH ×2 (08:41→20:27)
[2019-01-04] MEDS ORDERED: RELISTOR SUBQ SCH (09:00)
[2019-01-04] MEDS: METHYLNALTREXONE SUBQ SCH (09:36)
[2019-01-04] MEDS ORDERED: KETAMINE 500 MG/5 ML VIAL ONE (10:21)
[2019-01-04] MEDS ORDERED: MIDAZOLAM 2 MG/2 ML VIAL ONE (10:21)
--- NOTE | 2019-01-04 10:22 | NUR ---
PT IS OFF THE UNIT NOW FOR DRESSING CHANGE, PT IS AWAKE.
[2019-01-04] MEDS ORDERED: PROPOFOL 200 MG/20 ML VIAL IV ONE (10:32)
[2019-01-04] MEDS ORDERED: ESMOLOL 100 MG/10 ML VIAL IV ONE (10:32)
[2019-01-04] MEDS ORDERED: ONDANSETRON 4 MG/2 ML VIAL IVP PRN (10:55)
[2019-01-04] MEDS ORDERED: HYDROmorphone 1 MG/ML AMP IVP PRN (10:55)
[2019-01-04] MEDS: METOPROLOL 5 MG/5 ML VIAL IVP SCH ×2 (11:30→12:00)
[2019-01-04] MEDS: MULTIVITAMIN-12 10 ML in DEXTROSE 50% 760 ML, AMINO ACIDS 8.5% 760 ML, FAT EMULSION 20%... IV SCH ×8 (11:45→20:26)
[2019-01-04 12:00] VITALS: BP 118/68
--- NOTE | 2019-01-04 12:05 | NUR ---
PT CAME BACK TO ROOM NOW FROM WOUND DRESSING CHANGE IN OR, BP IS 148/83, TEMP. IS 98.2, PULSE IS 138, O2 SATURATION IS 96%, RESPIRATION IS 20/MIN, PT IS ASLEEP BUT AROUSABLE. WILL MONITOR PT.
--- NOTE | 2019-01-04 12:22 | NUR ---
PT IS HALF AWAKE, MOANING, MERREM WAS GIVEN VIA IVPB, PT'S V/S IS TEMP. IS 98.2, O2 SATURATION IS 99%, BP IS 118/68, PULSE IS 138, REPIRATION IS 20/MIN, NO SIGNS OF DISTRESS NOTED. WILL CONTINUE TO MONITOR.
--- NOTE | 2019-01-04 14:03 | NUR ---
01/04/19 RD FOLLOW UP COMPLETED PLEASE REFER TO NUTRITION ASSESSMENT UNDER CARE ACTIVITY FOR ESTIMATED NUTRITIONAL NEEDS. 1. CONTINUE REGULAR DIET 2. RECOMMEND ELECARE JR TID 3. ENCOURAGED PT AND PTS MOTHER TO RECORD DAILY FOOD INTAKE ON A FOOD LOG 4. ENCOURAGE FAMILY TO BRING SUPPLEMENTS AND FOOD FROM HOME IF APPROPRIATE PER MD RECOMMEND INCREASING TPN INFUSION WHEN MEDICALLY APPROPRIATE TO MEET 75% OF ESTIMATED NEEDS 5. CONTINUE RODRIGUEZ BID 6. ENCOURAGE INCREASING PO INTAKE 7. RD WILL FOLLOW UP 2-3 DAYS, HIGH RISK ALEXEI JOHNSTON RD
--- NOTE | 2019-01-04 16:15 | NUR ---
Talked to mother and patient regarding plan of repositioning, mother aware patient is refusing to be turn, patient is complaining at this time and refusing to be turn, with the mother help we were able to lift up left foot and put small towel under the foot, FRANCISCO thorne will come again around 5pm to try to reposition patient, i suggested that everytime she will come , we will try to reposition the patient with her help and she agreed with it.
--- NOTE | 2019-01-04 17:30 | NUR ---
PT WAS GIVEN PAIN MEDICATION NOW, BP IS 113/75, PULSE IS 140, O2 SATURATION IS 97%, WILL RE-ASSESS PAIN AND MONITOR PT.
[2019-01-04 18:00] VITALS: BP 123/78
--- NOTE | 2019-01-04 19:25 | NUR ---
ENDORSED PT TO CUTTER BANANA ROOM NURSE FOR CONTINUITY OF CARE.
--- NOTE | 2019-01-04 19:26 | NUR ---
RECEIVED ENDORSEMENT FROM AM SHIFT NURSE. PATIENT AWAKE AND RESPONSIVE. NO APPARENT DISTRESS NOTED. MOTHER AT BEDSIDE. WITH PICC LINE ON LEFT UPPER ARM DOUBLE LUMEN RUNNING IVF AND TPN. S/P WOUND DRESSING CHANGE TODAY. WILL CONTINUE TO MONITOR.
[2019-01-04 20:00] VITALS: BP 116/52
[2019-01-04] MEDS: VANCOMYCIN 750 MG in DEXTROSE 5% 250 ML IV SCH (20:27)
--- NOTE | 2019-01-04 21:25 | NUR ---
PATIENT AWAKE AT THIS TIME. MOTHER AT BEDSIDE. NO APPARENT DISTRESS NOTED. WILL CONTINUE TO MONITOR.
--- NOTE | 2019-01-04 23:20 | NUR ---
PATIENT ASLEEP AT THIS TIME. NO APPARENT DISTRESS NOTED. VISIBLE CHEST RISE AND FALL NOTED. WILL CONTINUE TO MONITOR.
[2019-01-05] VITALS (7 sets, daily range): BP systolic 100–122; BP diastolic 50–71
--- NOTE | 2019-01-05 01:18 | NUR ---
PATIENT ASLEEP IN BED. NO APPARENT DISTRESS NOTED. WILL CONTINUE TO MONITOR.
--- NOTE | 2019-01-05 03:15 | NUR ---
PATIENT ALERT AND AWAKE. NO APPARENT DISTRESS NOTED. PATIENT REQUESTING FOR PAIN MEDICATION. WILL MEDICATE PER PAIN SCALE.
[2019-01-05] MEDS: HYDROmorphone PFS 2 MG/ML SYR IVP PRN ×7 (03:29→23:50)
[2019-01-05] MEDS: MEROPENEM 1,000 MG in NACL 0.9% 100 ML IV SCH ×3 (04:13→20:54)
--- NOTE | 2019-01-05 05:10 | NUR ---
PATIENT AWAKE IN BED. NO APPARENT DISTRESS NOTED. WILL CONTINUE TO MONITOR.
--- NOTE | 2019-01-05 07:05 | NUR ---
ENDORSED TO AM SHIFT NURSE FOR CONTINUITY OF CARE.
--- NOTE | 2019-01-05 07:30 | NUR ---
Received report from crew person nurse. Pt is in bed. Pt requested pain medication. Pt given 2mg Dilaudid IVP. Pt was advised to have condom catheter. But pt is refusing to use condom catheter. Pt urinated on bed. Pt's wound on both legs is soaked with urine. Pt is requesting Dr to change the wound. Pt is verbalizing needs. Call light in reach.
[2019-01-05] MEDS: METHYLNALTREXONE SUBQ SCH (09:35)
--- NOTE | 2019-01-05 10:45 | NUR ---
Pt is refusing to change his wound dressing to his legs. Pt removed condom catheter and urine all over his wound on both legs. Called mother and reported that pt is refusing to be changed. Mother said she will come in 1 hrs time. Pt is in bed. Call light in reach.
--- NOTE | 2019-01-05 11:22 | NUR ---
Dr. Adam at bedside, major case detective brittani, nurse Aide and me at bedside, Dr. Adam discuss with patient the importance of participating with his care, MD will order PT eval
--- NOTE | 2019-01-05 13:00 | NUR ---
Pt is in bed. Mother by bedside. Call light in reach.
--- NOTE | 2019-01-05 13:15 | NUR ---
BED SIDE CARE CONFERENCE WITH PT, MOTHER AND [facility] DIRECTOR, WOUND CARE EXPLAIN WITH RISK AND BENEFIT, PT. AND MOTHER AGREEABLE TO GIVE IT A TRY TO APPLY THERAHONEY DRESSING SHEET TO SACRAL COCCYX AREA ONLY. PT. DO NOT WANT BLE DRESSING TO BED TOUCHED/ CHANGED. RECOMMENDATIONS DISCUSSED FOR PAIN MANAGEMENT WITH SPECIALIST AND ULTRASOUNDS FOR BLE. PT. AND MOTHER AGREE WITH THE PLAN AT THIS TIME.[facility] DIRECTOR WILL CONTINUE TO FOLLOW UP. CINDA GARCIA FOR SACRALCOCCYX DRESSING CHANGE . Addendum: 01/05/19 at 1601 by Wilber Valencia RN (Grace) CALL TO DR. CAICEDO OFFICE SPOKE TO AMOR CAICEDO REGARDING TO WOUND CARE PLAN AND CHARGE NURSE NOTIFIED
--- NOTE | 2019-01-05 13:21 | NUR ---
Wound care nurse at bedside and me per mother request, wound care nurse educating patient and mother regarding wound care, it was also discuss doppler ultrasound lower extremities after patient had wound care dressing change under anesthesia and also pain management for nerve block, will discuss this to MD, patient agreed to change dressing around 2 pm after pain medication given, we will come back later for the wound dressing.
--- NOTE | 2019-01-05 14:00 | NUR ---
WOUND CARE NURSE , FIRE SERVICES PLUMBER, MOTHER AND ME AT BEDSIDE, ABLE TO TURN PATIENT TURNING RIGHT
--- NOTE | 2019-01-05 15:12 | NUR ---
@1430 hrs: dressing changed by wound care nurse at the bedside. pt screaming for pain and asked to call the attending for one time dose of IV pain meds. pt was given IV pain meds at 1350 hrs prior to dressing change, waiting for call back. @ 1445 hrs: no response from Dr. Adam, paged the attending again, waiting for call back. @1500 hrs: still no response from Dr. Adam, paged the attending again, waiting for call back. [facility] director made aware.
[2019-01-05] MEDS ORDERED: HYDROmorphone PFS 2 MG/ML SYR IVP PRN (15:25)
--- NOTE | 2019-01-05 15:27 | NUR ---
PERFORM WOUND CARE AND SOILED LINING CHANGE WITH PT. PERMISSION, MOTHER AND [facility] DIRECTOR ASSIST WITH CARE. PT. REFUSED BLE TO BE TOUCHED, OUTER LAYER DRESSING SOILED WITH URINE. SPOKE TO [facility] TARIFF PUBLISHING AGENT SURGEON FOR DRESSING CHANGE IF S/S OF WOUND INFECTION. WOUND CARE TO SACRALCOCCYX DONE. WOUND BED 100% GRANULATION WITH SMALL AMOUNT SEROSANGUINEOUS DRAINAGE, NO ODOR, WOUND CLEANSED WITH NS, PAT DRY,THERAHONEY DRESSING SHEET APPLY, COVERED WITH DRY DRESSING. PT. REQUEST MORE PAIN MEDICATIONS DURING PROCEDURE, CHARGE NURSE PAGED DOCTOR MULTIPLE TIMES. UNABLE TO DO MEASUREMENT DUE TO PT. UNABLE TO TOLERATE PROCEDURE. LINING CHANGE PROCEDURE HALF WAY DONE, PT REFUSED TO BE TOUCHED AND TURNED FOR REMOVING THE SOILING LINING AT THIS TIME. STAFF AND MOTHER AT BED SIDE ENCOURAGE AND EXPLAIN TO PT FOR COMPLETIONS OF LINING CHANGE. PT. REFUSED.
[2019-01-05] MEDS ORDERED: HYDROmorphone PFS 2 MG/ML SYR ONE (15:29)
--- NOTE | 2019-01-05 17:00 | NUR ---
Pt is in bed. Mother by bedside. Pt is always requesting for pain medication. Told patient and mother that pain medication will be given when it is due. Call light in reach.
--- NOTE | 2019-01-05 19:30 | NUR ---
Shift report given to night auditor nurse. Mother by bedside. Call light in reach.
--- NOTE | 2019-01-05 19:33 | NUR ---
RECEIVED PT IN STABLE CONDITION FORM AM NURSE. AWAKE,ALERT AND ORIENTED X4. ON TELE MONITOR-ST. WITH MOM AT BEDSIDE. NO ACUTE DISTRESS NOTED. ON BEDREST. WITH TPN STILL INFUSING ON THE LT UPPER ARM PICC LINE. WHEN ASKED IF NEEDS TO BE TURN, PT REFUSED. PLAN OF CARE DISCUSSED AND VERBALIZED UNDERSTANDING. BED ON LOW POSITION. SIDE RAILS UP X2. WITH CALL LIGHT AND URINAL WITHIN EASY REACH. ON CONTACT ISOLATION. PT/MOTHER AWARE OF PRECAUTION . WILL CONTINUE TO MONITOR.
[2019-01-05] MEDS: VANCOMYCIN 750 MG in DEXTROSE 5% 250 ML IV SCH (19:58)
[2019-01-05] MEDS: MULTIVITAMIN-12 10 ML in DEXTROSE 50% 760 ML, AMINO ACIDS 8.5% 760 ML, FAT EMULSION 20%... IV SCH ×4 (19:58)
--- NOTE | 2019-01-05 20:52 | NUR ---
PT C/O PAIN MEDICATED ORDERED. PT REFUSED TO BE TOUCHED.
--- NOTE | 2019-01-05 22:00 | NUR ---
MADE ROUNDS. PT IS AWAKE,RESTING IN BED. NO C/O PAIN .
--- NOTE | 2019-01-06 00:10 | NUR ---
ASKED PT IF HE IS READY TO BE TURNED. PT REFUSED. WILL TRY AGAIN LATER.
[2019-01-06] MEDS: HYDROmorphone PFS 2 MG/ML SYR IVP PRN ×7 (02:42→22:41)
--- NOTE | 2019-01-06 02:42 | NUR ---
PT IN PAIN AGAIN. MOANING. MEDICATED ORDERED. WILL CONTINUE TO MONITOR.
--- NOTE | 2019-01-06 04:10 | NUR ---
PT REFUSED TO BE TOUCHED AND TURNED. HE DOESN'T WANT ANYTHING DONE WITH HIS BED.
[2019-01-06 04:50] VITALS: BP 107/59
[2019-01-06] MEDS: MEROPENEM 1,000 MG in NACL 0.9% 100 ML IV SCH ×3 (05:01→21:26)
--- NOTE | 2019-01-06 06:10 | NUR ---
BLOOD WAS DRAWN THIS AM . WILL FOLLOW UP RESULTS.
[2019-01-06 06:45] LABS: ANION GAP 13.6 (8-16); CARBON DIOXIDE 22.8 mmol/L (21-32); CREATININE 0.7 mg/dL (0.7-1.3); POTASSIUM 3.4 mmol/L (3.5-5.1)
--- NOTE | 2019-01-06 07:22 | NUR ---
ENDORSED PT IN STABLE CONDITION TO AM NURSE FOR CONTINUITY OF CARE.
--- NOTE | 2019-01-06 07:22 | NUR ---
RECEIVED REPORT FROM TELEGRAPH PRINTER MECHANIC NURSE KEESHA. PT IS AROUSABLE TO NAME, ORIENTED X4. NOTED PICC LINE ON LT UA RUNNING TPN PER ORDER, DRESSING CLEAN, DRY AND INTACT. PT ON TELE MONITOR. RESPIRATIONS EVEN AND UNLABORED ON RA. ABD SOFT, ACTIVE BS. REVIEWED POC WITH PT, PT VERBALIZED UNDERSTANDING.
[2019-01-06 08:00] VITALS: BP 103/59
--- NOTE | 2019-01-06 08:00 | NUR ---
PT REFUSED CHG CLEANSING BATH AND ASSISTANCE WITH POSITION CHANGE AT THIS TIME, WILL REATTEMPT AT A LATER TIME.
[2019-01-06] MEDS: METHYLNALTREXONE SUBQ SCH (08:48)
--- NOTE | 2019-01-06 09:30 | NUR ---
01/06/19 RD FOLLOW UP COMPLETED PLEASE REFER TO NUTRITION ASSESSMENT UNDER CARE ACTIVITY FOR ESTIMATED NUTRITIONAL NEEDS. 1. CONTINUE REGULAR DIETW/ELECARE JE TID W/MEALS. 2. ENCOURAGE FAMILY TO BRING SUPPLEMENTS AND FOOD FROM HOME IF APPROPRIATE PER MD RECOMMEND INCREASING TPN INFUSION WHEN MEDICALLY APPROPRIATE TO MEET 75% OF ESTIMATED NEEDS 3. CONTINUE RODRIGUEZ BID 4. ENCOURAGE INCREASING PO INTAKE; WILL HONOR FOOD PREFERENCES ABLE. 5. RD WILL FOLLOW UP 2-3 DAYS, HIGH RISK REINA JEWELL RD
--- NOTE | 2019-01-06 10:29 | NUR ---
PT REFUSED FOR PICC LINE DRESSING TO BE CHANGED AT THIS TIME, PT RAISING VOICE AND STATING "GIVE ME A FEW HOURS, I'M NOT FEELING WELL RIGHT NOW". PT IS AWARE THAT PAIN MEDICATION IS EVERY 3 HOURS PRN, VERBALIZED "I CAN WAIT 1 MORE HOUR."
--- NOTE | 2019-01-06 10:45 | NUR ---
PT STATES HE HAS PAIN ON HIS LOWER BACK, REMINDED PT THAT PAIN MEDICATION IS NOT DUE FOR ANOTHER 45 MINUTES. RN OFFERED TO CALL MD, BUT PT STATES "IT'S OKAY, I CAN WAIT". WILL CONTINUE TO MONITOR.
--- NOTE | 2019-01-06 11:45 | NUR ---
PT REFUSED FOR RN TO CHANGED PICC LINE DRESSING AND CHG CLEANSING BATH AT THIS TIME, WILL TRY AGAIN AT A LATER TIME.
[2019-01-06 12:00] VITALS: BP 104/53
[2019-01-06] MEDS: THERAHONEY GEL 42.5 GM TP SCH (13:00)
--- NOTE | 2019-01-06 13:10 | NUR ---
NOTIFIED PT AND MOTHER THAT PHYSICIAN HAS PUT IN AN ORDER FOR PICC LINE INSERTION TODAY, OBTAINED CONSENT FROM MOTHER/MELITA AT BEDSIDE. PT HAS C/O BACK PAIN, RN OFFERED TO CALL PHYSICIAN BUT PT STATES "I'LL WAIT FOR WHEN THE PAIN MEDICATION IS DUE". PT REFUSED FOR CHG BATH AND WOUND DRESSING CHANGE AT THIS TIME.
--- NOTE | 2019-01-06 14:30 | NUR ---
ADMINISTERED DILAUDID FOR LEVEL 9/10 BACK PAIN, PT IS AWARE OF INDICATIONS AND POTENTIAL SIDE EFFECTS OF MEDICATION. WILL REASSESS WITHIN 1 HOUR.
--- NOTE | 2019-01-06 15:43 | NUR ---
PICC LINE NURSE/CLAY AT BEDSIDE, TIME-OUT COMPLETED WITH RN PRIOR TO PROCEDURE.
[2019-01-06 16:00] VITALS: BP 106/61
--- NOTE | 2019-01-06 16:30 | NUR ---
PT STATES "NO, DO NOT TOUCH MY LEGS" WHEN ASKED IF PT WOULD LIKE TO BE REPOSITIONED AT THIS TIME.
--- NOTE | 2019-01-06 16:50 | NUR ---
DR. CAICEDO GIVEN UPDATES OVER THE TELEPHONE REGARDING PT'S C/O LEVEL 10/10 BACK PAIN POST PICC LINE INSERTION TO RT UA, PER PHYSICIAN OKAY TO GIVE EARLY DOSE OF PAIN MEDICATION DILAUDID AT THIS TIME, READ BACK AND VERIFICATION DONE, RN TO CARRY OUT ORDER.
[2019-01-06] MEDS ORDERED: HYDROmorphone PFS 2 MG/ML SYR ONE (16:52)
--- NOTE | 2019-01-06 16:55 | NUR ---
ADMINISTERED DILAUDID FOR LEVEL 10/10 BACK PAIN, PT IS AWARE OF INDICATIONS AND POTENTIAL SIDE EFFECTS.
--- NOTE | 2019-01-06 17:05 | NUR ---
PICC LINE TO LT UPPER ARM REMOVED. STANDARD PRECAUTIONS OBSERVED, INSTRUCTED PT TO HOLD BREATH DURING REMOVAL OF PICC LINE CATHETER. NO ACTIVE BLEEDING NOTED, PRESSURE APPLIED TO AREA. PT TOLERATED WELL. MOTHER/MELITA AT BEDSIDE, PT HAS NO SIGNS OF DISTRESS AT THIS TIME.
--- NOTE | 2019-01-06 17:50 | NUR ---
VIANCA/FRANCISCO OFFERED TO REPOSITION PT AT THIS TIME, PT STATES "NO, NO, NO". EXPLAINED RISKS AND BENEFITS, BUT PT INSISTS NOT TO BE MOVED. MOTHER/MELITA AT SIDE.
[2019-01-06] MEDS ORDERED: TOBRAMYCIN PER PHARMACY MC PRN (17:55)
[2019-01-06] MEDS ORDERED: KCL 20 MEQ/WATER INJ PREMIX 100 ML IV ONE (19:00)
--- NOTE | 2019-01-06 19:25 | NUR ---
ENDORSED PT TO MANAGER SPORTS NURSE/JAYSHREE. PT HAS NO SIGNS OF DISTRESS AT THIS TIME.
--- NOTE | 2019-01-06 19:26 | NUR ---
Received endorsement from AM shift RN; patient A/Ox4, able to make needs known, Estonian speaking, bedbound. Patient is talking with mother Saray; introduced self, updated board. No SOB or distress noted, on room air. On contact precautions for MDRO wounds; observed and maintained. IV site on right upper arm PICC line, double lumen, running TPN at 70mL/hr and NS running at 10mL/hr. 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 Bed in the lowest position, call light within reach. Initial assessment done. Will continue to monitor.
[2019-01-06] MEDS: MULTIVITAMIN-12 10 ML in DEXTROSE 50% 760 ML, AMINO ACIDS 8.5% 760 ML, FAT EMULSION 20%... IV SCH ×4 (19:44)
[2019-01-06] MEDS: VANCOMYCIN 750 MG in DEXTROSE 5% 250 ML IV SCH (19:56)
[2019-01-06 20:00] VITALS: BP 108/65
--- NOTE | 2019-01-06 20:30 | NUR ---
Vitals taken, no distress noted.
[2019-01-06] MEDS ORDERED: TOBRAMYCIN 80 MG in DEXTROSE 5% 100 ML IV SCH (21:00)
--- NOTE | 2019-01-06 21:30 | NUR ---
Due meds given, tolerated well.
[2019-01-06] MEDS: fentaNYL 0.075 MG/HR PATCH TD SCH (21:43)
[2019-01-06] MEDS ORDERED: TOBRAMYCIN 80 MG/2 ML VIAL ONE (21:48)
[2019-01-06] MEDS ORDERED: CALCIUM GLUCONATE 10% 1,000 MG in NACL 0.9% 50 ML IV ONE (23:00)
--- NOTE | 2019-01-06 23:30 | NUR ---
Vitals taken, no SOB or distress noted.
[2019-01-06] MEDS ORDERED: CALCIUM GLUCONATE 10% 1000 MG/10 ML VIAL ONE (23:32)
[2019-01-07] VITALS: BP 140/80
--- NOTE | 2019-01-07 00:51 | NUR ---
Patient refused wound care and repositioning at this time.
[2019-01-07] MEDS: HYDROmorphone PFS 2 MG/ML SYR IVP PRN ×7 (02:00→23:15)
--- NOTE | 2019-01-07 03:00 | NUR ---
Checks made; patient resting comfortably, no SOB or distress noted.
[2019-01-07 04:00] VITALS: BP 113/61
--- NOTE | 2019-01-07 04:30 | NUR ---
Vitals taken, no SOB or distress noted.
[2019-01-07] MEDS: MEROPENEM 1,000 MG in NACL 0.9% 100 ML IV SCH ×3 (05:01→22:38)
--- NOTE | 2019-01-07 06:10 | NUR ---
Vitals stable, due meds given. Will endorse to AM shift RN for continuity of care.
--- NOTE | 2019-01-07 06:17 | NUR ---
Patient refused lab draw at this time.
--- NOTE | 2019-01-07 07:18 | NUR ---
RECEIVED BEDSIDE REPORT FROM VP DIGITAL MARKETING NURSE FOR CONTINUITY OF CARE. PATIENT AWAKE AND RESTING ON BED AT THIS TIME. PATIENT IS AAOX4 AND ABLE TO MAKE NEEDS KNOWN. RESPIRATION EVEN AND UNLABORED ON RA. STATED PAIN IS WITHIN HIS TOLERABLE LIMIT AT THIS TIME. NO SIGNS OF DISTRESS NOTED. PICC LINE DOUBLE LUMEN ON ROSEMARIE, CLEAN AND INTACT, INFUSING PER MD ORDER. SKIN GONZALES NOTED, PATIENT REFUSED TO OPEN THE BLANKET AND SKIN ASSESSMENT, EDUCATION PROVIDED AND PATIENT INSISTED OF NOT WANTING IT. COLOSTOMY BAG IN PLACE. PATIENT IS CONTINENT AND ABLE TO USE THE URANAL BY BEDSIDE WITH MINIMAL ASSISTANCE. DISCUSSED PLAN OF CARE WITH PATIENT AND PATIENT SAID OK. CONTACT PRECAUTION NOTED AND SIGN POSTED BY DOOR. SAFETY MEASURES IN PLACE. BED IN LOW POSITION AND CALL LIGHT WITHIN REACH. TELE MONITOR ATTACHED. INSTRUCTED PATIENT TO USE THE CALL LIGHT FOR ANY ASSISTANCE AND PATIENT WAS AWARE.
[2019-01-07 08:00] VITALS: BP 106/52
[2019-01-07] MEDS: VANCOMYCIN 750 MG in DEXTROSE 5% 250 ML IV SCH ×2 (08:25→20:16)
[2019-01-07] MEDS: METHYLNALTREXONE SUBQ SCH (08:31)
--- NOTE | 2019-01-07 08:31 | NUR ---
PATIENT COMPLAINED HE HAS 9/10 PAIN AROUND HIS PAIN AND R LEG, PATIENT REFUSED TO TURN FOR ASSESSMENT, SKIN CARE EDUCATION PROVIDED TO PATIENT, MEDICATED WITH PRN PAIN MED PER MD ORDER, PATIENT TOLERATED WELL. ADMINISTERED SCHEDULED AM MEDS, MEDS EDUCATION PROVIDED TO PATIENT AND PATIENT VERBALIZED UNDERSTANDING. PATIENT IS AWAKE AND WATCHING TV AT THIS TIME. ENCOURAGED PATIENT TO EAT HIS BREAKFAST AND EDUCATED PATIENT ON ADEQUATE NUTRIENTS PROMOTE WOUNDS HEALING, PATIENT SAID "OK, I WILL. I AM ABOUT TO EAT THE FRUIT CUP." NO SIGNS OF DISTRESS NOTED. SAFETY MEASURES IN PLACE. TELE MONITOR ATTACHED. BED IN LOW POSITION AND CALL LIGHT WITHIN REACH. INSTRUCTED PATIENT TO USE THE CALL LIGHT FOR ANY ASSISTANCE AND PATIENT WAS AWARE.
--- NOTE | 2019-01-07 09:50 | NUR ---
PATIENT AWAKE AND WATCHING TV AT THIS TIME. STATED PAIN HAS REDUCE AND IT'S TOLERABLE AT THIS TIME. NO SIGNS OF DISTRESS NOTED. TELE MONITOR ATTACHED. SAFETY MEASURES IN PLACE.
--- NOTE | 2019-01-07 11:04 | NUR ---
P.T. NOTES RECEIVED P.T. EVAL ORDER, Pt WAS SEEN SLEEPY IN BED, ISOL PREC OBSERVED, WOKE UP W/ P.T., DECLINED TO PARTICIPATE W/ P.T., STATES HE WANTS TO SLEEP,EXPLAINED RISKS OF BEDBOUND & BENEFITS OF THERAPY, Pt STILL REFUSED; BED ALARM ON, CALL CONN, PHONE, TABLE IN REACH; APPRECIATIVE; FF UP WHEN ABLE.
--- NOTE | 2019-01-07 11:15 | NUR ---
FRANCISCO AND I WENT TO ASSIST PATIENT TO REPOSITION. PATIENT REFUSED AND SAID " NO! NO!" SKIN CARE EDUCATION PROVIDED AND PATIENT INSISTED NOT WANTING TO BE REPOSITION.
--- NOTE | 2019-01-07 11:27 | NUR ---
PATIENT COMPLAINED HE HAS 9/10 PAIN AROUND HIS PAIN AND R LEG, MEDICATED WITH PRN PAIN MED PER MD ORDER, PATIENT TOLERATED WELL. PATIENT IS AWAKE AND WATCHING TV AT THIS TIME. NO SIGNS OF DISTRESS NOTED. SAFETY MEASURES IN PLACE. TELE MONITOR ATTACHED. BED IN LOW POSITION AND CALL LIGHT WITHIN REACH. INSTRUCTED PATIENT TO USE THE CALL LIGHT FOR ANY ASSISTANCE AND PATIENT WAS AWARE.
[2019-01-07 12:00] VITALS: BP 103/54
[2019-01-07] MEDS: THERAHONEY GEL 42.5 GM TP SCH (13:00)
--- NOTE | 2019-01-07 13:16 | NUR ---
UNABLE TO SCAN MED DUE TO CHIEF FINANCIAL OFFICER DOWN IN ALL COMPUTER, MANUAL ENTER. PATIENT REFUSED THERAHONEY AND WOUND CARE. WOUND CARE EDUCATION PROVIDED AND PATIENT INSISTED NOT WANTING THE WOUND CARE AND SAID "YOU'RE GOING TO MAKE ME CRY AND HURT. I DON'T WANT IT." PATIENT AWAKE AND RESTING ON BED AT THIS TIME. NO SIGNS OF DISTRESS NOTED. SAFETY MEASURES IN PLACE. BED IN LOW POSITION AND CALL LIGHT WITHIN REACH. INSTRUCTED PATIENT TO USE THE CALL LIGHT FOR ANY ASSISTANCE AND PATIENT WAS AWARE.
[2019-01-07] MEDS: TOBRAMYCIN 80 MG in DEXTROSE 5% 100 ML IV SCH ×2 (15:12→23:21)
--- NOTE | 2019-01-07 15:14 | NUR ---
DUE TO SYSTEM DOWN EARLIER, REFERRED TO PAPER NOTE FOR PREVIOUS CHARTING.
--- NOTE | 2019-01-07 15:30 | NUR ---
PATIENT REFUSED TO BE REPOSITION AND TURNING WITH ASSIST FROM SCHOOL TRAFFIC GUARD AND MOTHER MELITA. PATIENT SAID "I AM FINE. I WILL TRY TO REPOSITION MYSELF HERE AND THERE. DONT MOVE ME." PATIENT AWAKE AND TALKING TO MOTHER MELITA AND VISITOR AT BEDSIDE. NO SIGNS OF DISTRESS NOTED. SAFETY MEASURES IN PLACE. BED IN LOW POSITION AND CALL LIGHT WITHIN REACH. INSTRUCTED PATIENT TO USE THE CALL LIGHT FOR ANY ASSISTANCE AND PATIENT WAS AWARE.
[2019-01-07 16:00] VITALS: BP 111/62
--- NOTE | 2019-01-07 16:50 | NUR ---
FRANCISCO RUGGIERO ASK PATIENT TO BE REPOSITIONING WITH ASSIST FROM MOTHER MELITA BY BEDSIDE. PATIENT REFUSED. PROVIDED WOUND CARE EDUCATION AND PATIENT INSISTED NOT WANT TO BE REPOSITIONED. PATIENT IS TALKING TO MOTHER MELITA AND VISITORS BY BEDSIDE. NO SIGNS OF DISTRESS NOTED. SAFETY MEASURES IN PLACE.
--- NOTE | 2019-01-07 17:26 | NUR ---
OBTAINED CONSENT FROM PATIENT AND MOTHER MELITA FOR PROCEDURE. EXPLAINED TO PATIENT AND MOTHER MELITA THAT PATIENT WILL BE NPO AFTER MIDNIGHT, BOTH AWARE. SIGN POSTED BY DOOR.
--- NOTE | 2019-01-07 17:30 | NUR ---
PATIENT COMPLAINED HE HAS 9/10 PAIN AROUND HIS BACK AND R LEG, MEDICATED WITH PRN PAIN MED PER MD ORDER, PATIENT TOLERATED WELL. PATIENT IS AWAKE AND TALKING TO MOTHER MELITA AND VISITORS AT THIS TIME. NO SIGNS OF DISTRESS NOTED. SAFETY MEASURES IN PLACE. TELE MONITOR ATTACHED. BED IN LOW POSITION AND CALL LIGHT WITHIN REACH. INSTRUCTED PATIENT TO USE THE CALL LIGHT FOR ANY ASSISTANCE AND PATIENT WAS AWARE.
[2019-01-07 17:49] LABS: WHITE BLOOD COUNT (AUTO) 11.5 K/uL (4.8-10.8)
[2019-01-07 17:50] LABS: BASOPHILS % (AUTO) 0.6 % (0.0-2.0); EOSINOPHILS % (AUTO) 6.2 % (0.0-4.0); HEMATOCRIT 23.5 % (36-52); HEMOGLOBIN 7.5 g/dL (12.0-18.0); LYMPHOCYTES % (AUTO) 17.8 % (20.5-51.1); MEAN CORPUSCULAR HEMOGLOBIN 28 pg (27-31); MEAN CORPUSCULAR HGB CONC 32 g/dL (33-37); MEAN CORPUSCULAR VOLUME 88.9 fL (80-94); MONOCYTES % (AUTO) 13.4 % (1.7-9.3); PLATELET COUNT (AUTO) 437 K/uL (140-450); RED BLOOD CELL COUNT(AUTO) 2.64 MIL/uL (4.20-6.10); RED CELL DISTRIBUTION WIDTH 16.5 % (11.6-13.7)
[2019-01-07 17:51] LABS: BASOPHILS # (AUTO) 0.1 K/uL (0.00-0.22); EOSINOPHILS # (AUTO) 0.7 K/uL (0-0.4); LYMPHOCYTES # (AUTO) 2.1 K/uL (2.0-11.5); MONOCYTES # (AUTO) 1.5 K/uL (0.8-1.0); NEUTROPHILS # (AUTO) 7.2 K/uL (1.8-7.7)
[2019-01-07 18:15] LABS: PHOSPHORUS 4.1 mg/dL (2.5-4.9)
--- NOTE | 2019-01-07 18:26 | NUR ---
PATIENT AWAKE AND TALKING TO MOTHER MELITA AND VISITORS AT BEDSIDE. NO SIGNS OF DISTRESS NOTED. SAFETY MEASURES IN PLACE.
[2019-01-07 18:38] LABS: POTASSIUM 3.8 mmol/L (3.5-5.1)
[2019-01-07 18:39] LABS: ANION GAP 14.5 (8-16); CARBON DIOXIDE 24.3 mmol/L (21-32)
[2019-01-07 18:44] LABS: CREATININE 0.6 mg/dL (0.7-1.3)
--- NOTE | 2019-01-07 19:22 | NUR ---
ENDORSED PATIENT AT BEDSIDE TO CADET DECK NURSE FOR CONTINUITY OF CARE. PATIENT AWAKE AND RESTING ON BED AT THIS TIME. RESPIRATION EVEN AND UNLABORED ON RA. NO SIGNS OF DISTRESS NOTED. PATIENT IS IN STABLE CONDITION. TELE MONITOR ATTACHED. SAFETY MEASURES IN PLACE. INFORMED CADET DECK NURSE THAT FENTANYL PATCH IN THE LOCK BOX AND ABLE TO ACCESS NARCOTIC ENNIS PYXIS. CADET DECK NURSE WAS AWARE.
--- NOTE | 2019-01-07 19:22 | NUR ---
RECIEVED PT AAOX4 , NID , WITH PICC LINE INTACT AND PATENT - ON TPN , WITH COLOSTOMY - SOFT ABD. WITH CHRONIC MULTIPLE WOUNDS - C/O PAIN 09/18 , ON SAFETY / FALL PRESSURE ULCERS PRECAUTION PROTOCOL BUT BUT REFUSED CHANGE OF [POSITIONING , USES URINAL , PLAN OF CARE DISCUSSED AND VERBALIZED UNDERSTANDING , ON EDGE WORKER - TACHY CARDIC - BUT NO S/ SXS OF ACUTE DISTRESS - O2 WNL - CALL LIOGHT WITHIN REACH. WILL CONT. TO MONITOR.
[2019-01-07 20:00] VITALS: BP 111/64
[2019-01-07] MEDS: MULTIVITAMIN-12 10 ML in DEXTROSE 50% 760 ML, AMINO ACIDS 8.5% 760 ML, FAT EMULSION 20%... IV SCH ×4 (20:15)
--- NOTE | 2019-01-07 22:13 | NUR ---
DR. CAICEDO CALL HE SAID IF OK TO PT. TO CANCEL THE DRESSING CHANGE OMI. INSTEAD HE WILL DO DRESSING CHANGE ON THURSDAY - PT AGREED - CHARGE NURSE INFORMED. PT'S MOTHER AWARE ABOUT IT.
[2019-01-08] VITALS: BP 112/60
--- NOTE | 2019-01-08 01:55 | NUR ---
DUE TO POSTPONED DRESSING PER ORDERED REGULAR DIET FOR PT PREVIOUS DIET ORDER.PT NEEDS TO NPO THURSDAY AFTER MIDNIGHT.
--- NOTE | 2019-01-08 02:00 | NUR ---
MADE ROUNDS . NO S/SXS OF ACUTE DISTRESS NOTED AT THIS TIME - O2 SAT WNL - CALL LIGHT WITHIN REACH.
[2019-01-08] MEDS: HYDROmorphone PFS 2 MG/ML SYR IVP PRN ×7 (02:16→20:56)
--- NOTE | 2019-01-08 02:45 | NUR ---
RENEWED ORDER FOR DILAUDID BY DR Vinita WISEMAN ( MD HR PAYROLL COORDINATOR ) HE SAID RENEW ORDER DILAUDID THE SAME DOSAGE AND FREQ.- CHARGE NOD INFORMED.
[2019-01-08 04:00] VITALS: BP 111/62
--- NOTE | 2019-01-08 04:00 | NUR ---
MADE ROUNDS , NO S/SX OF ACUTE DISTRESS . O2 SAT WNL . CALL LIGHT WITH REACH WILL CONT. TO MONITOR
[2019-01-08] MEDS: MEROPENEM 1,000 MG in NACL 0.9% 100 ML IV SCH ×3 (05:08→21:46)
[2019-01-08] MEDS: TOBRAMYCIN 80 MG in DEXTROSE 5% 100 ML IV SCH (06:12)
--- NOTE | 2019-01-08 07:30 | NUR ---
ENDORSED TO AM SHIFT WITH STABLE CONDITION - ON DRUG INSPECTOR . O2 SAT WNL .
--- NOTE | 2019-01-08 07:35 | NUR ---
RECEIVED PATIENT FROM METAL SANDER RN. PATIENT IS AWAKE. NO SIGNS OF DISTRESS NOTED. RESPIRATIONS EVEN AND UNLABORED. ON TELE MONITOR. BED IN LOW POSITION. CALL LIGHT IS WITHIN REACH. WILL CONTINUE TO MONITOR
[2019-01-08 08:00] VITALS: BP 108/64
[2019-01-08] MEDS: VANCOMYCIN 750 MG in DEXTROSE 5% 250 ML IV SCH ×2 (08:08→19:43)
--- NOTE | 2019-01-08 08:08 | NUR ---
GIVEN MORNING MEDICATIONS. EXPLAINED TO PATIENT THE INDICATIONS AND SIDE EFFECTS. PATIENT TOLERATED WELL. WILL CONTINUE TO MONITOR. BED IN LOW POSITION. CALL LIGHT IS WITHIN REACH.
[2019-01-08] MEDS: METHYLNALTREXONE SUBQ SCH (08:13)
--- NOTE | 2019-01-08 11:13 | NUR ---
GIVEN IVP DILAUDID FOR PAIN 09/18. EXPLAINED TO PATIENT INDICATION AND SIDE EFFECTS. VERBALIZED UNDERSTANDING. WILL CONTINUE TO MONITOR. CALL LIGHT WITHIN REACH. BED IN LOW POSITION.
[2019-01-08 11:25] LABS: CARBON DIOXIDE 21.9 mmol/L (21-32); CREATININE 0.6 mg/dL (0.7-1.3); POTASSIUM 3.9 mmol/L (3.5-5.1)
[2019-01-08 12:00] VITALS: BP 105/63
--- NOTE | 2019-01-08 12:56 | NUR ---
GIVEN ANTIBIOTIC VIA IVPB. EXPLAINED TO PT INDICATION AND SIDE EFFECT. VERBALIZED UNDERSTANDING. WILL CONTINUE TO MONITOR. CALL LIGHT WITHIN REACH. BED IN LOW POSITION.
[2019-01-08] MEDS: THERAHONEY GEL 42.5 GM TP SCH (13:00)
[2019-01-08] MEDS: ONDANSETRON 4 MG/2 ML VIAL IVP PRN (14:31)
--- NOTE | 2019-01-08 14:39 | NUR ---
PATIENT COMPLAINT OF PAIN AND NAUSEA. GIVEN DILAUDID AND ZOFRAN VIA IVP. EXPLAINED TO PT. INDICATIONS AND SIDE EFFECTS. VERBALIZED UNDERSTANDING. WILL CONTINUE TO MONITOR. CALL LIGHT WITHIN REACH.
[2019-01-08 16:00] VITALS: BP 107/59
--- NOTE | 2019-01-08 17:35 | NUR ---
GIVEN DILAUDID VIA IVP. EXPLAINED TO PT INDICATION AND SIDE EFFECTS. VERBALIZED UNDERSTANDING. NO SIGNS OF DISTRESS NOTED AT THIS TIME. MOM IS AT BEDSIDE. CALL LIGHT IS WITHIN REACH. BED IN LOW POSITION.
--- NOTE | 2019-01-08 19:05 | NUR ---
RECIEVED PT AAOX4 , WITH CHRONIC MULTIPLE WOUNDS, WITH DOUBLE LUMEN PICC LINE - WITH ON GOING TPN AT 70 CC/HR . WITH COLOSTOMY - SOFT ABD . USE URINAL , C/O OF PAIN . MOTHER AT [facility] . PALN OF CARE DISCUSSED AND VERBALIZE UNDERSTANDING . REFUSE TO CHANGE POSITIONING - CALL LIGHT WITHIN REACH . ON SAFETY / FALL PRECAUTION PRPTOCOL . WILL CONT. TO MONITOR . O2 SAT WNL - ON FINANCIAL ADMINISTRATIVE ASSISTANT , BP WNL .
--- NOTE | 2019-01-08 19:05 | NUR ---
ENDORSED PATIENT TO SHEET ROCK APPLICATOR NURSE FOR CONTINUITY OF CARE.
[2019-01-08 20:00] VITALS: BP 111/60
[2019-01-08] MEDS: MULTIVITAMIN-12 10 ML in DEXTROSE 50% 760 ML, AMINO ACIDS 8.5% 760 ML, FAT EMULSION 20%... IV SCH ×4 (20:06)
--- NOTE | 2019-01-08 22:00 | NUR ---
MADE [id number] . NO S'/ SX OF ACUTE DISTERSS -WILL CONT. TO MONITOR. CALL LIGHT WITHIN REACH.
[2019-01-09] VITALS: BP 111/61
[2019-01-09] MEDS: HYDROmorphone PFS 2 MG/ML SYR IVP PRN ×8 (01:19→23:22)
[2019-01-09 04:00] VITALS: BP 111/62
[2019-01-09] MEDS: MEROPENEM 1,000 MG in NACL 0.9% 100 ML IV SCH ×3 (04:25→23:12)
--- NOTE | 2019-01-09 07:20 | NUR ---
PATIENT HANDOFF CONDUCTED BY YARN PREPARATION SUPERVISOR NURSE FOR CONTINUITY OF CARE. PATIENT IS RESTING IN BED WATCHING TELEVISION GETTING READY FOR BREAKFAST. IV LINES PATENT ON RIGHT ARM, MEDICATION ADMINISTERED FOR PAIN. VANCOMYCIN ADMINISTERED. BED IN LOWEST POSITION, CALL LIGHT ON, WILL CONTINUE TO MONITOR.
[2019-01-09 07:54] LABS: ANION GAP 13.9 (8-16); CARBON DIOXIDE 24.8 mmol/L (21-32); CREATININE 0.6 mg/dL (0.7-1.3); POTASSIUM 3.7 mmol/L (3.5-5.1)
[2019-01-09] MEDS: VANCOMYCIN 750 MG in DEXTROSE 5% 250 ML IV SCH ×2 (07:56→20:49)
[2019-01-09 08:00] VITALS: BP 111/63
--- NOTE | 2019-01-09 09:30 | NUR ---
PATIENT IS RESTING IN BED, MEDICATIONS TOLERATED WELL, PAIN MEDICATION ADMINISTERED FOR 6/10 PAIN. URINAL EMPTIED. PATIENT IS WATCHING TV, BED IN LOW POSITION, CALL LIGHT ON AND WITHIN REACH. WILL CONTINUE TO MONITOR.
[2019-01-09] MEDS: METHYLNALTREXONE SUBQ SCH (10:27)
--- NOTE | 2019-01-09 11:04 | NUR ---
PATIENT RESTING IN BED, MEDICATIONS ADMINISTERED FOR PAIN, PATIENTS DIET IS BEING CHANGED TO NPO STATUS PER MD ORDER. PATIENT WAS NOTIFIED. BED IN LOW POSITION, CALL LIGHT ON AND WITHIN REACH. URINAL EMPTIED. WILL CONTINUE TO MONITOR.
[2019-01-09 12:00] VITALS: BP 108/65
[2019-01-09] MEDS: THERAHONEY GEL 42.5 GM TP SCH (13:00)
[2019-01-09] MEDS: TOBRAMYCIN 80 MG in DEXTROSE 5% 100 ML IV SCH (15:04)
--- NOTE | 2019-01-09 15:30 | NUR ---
FREQUENT ROUNDING ON PT PT APPEARS STABLE AND IN NO APPARENT DISTRESS/ ALL SAFETY MEASURES ARE IN PLACE OFFERED TO REPOSITION PT PT REFUSED PROVIDED EDUCATION ON THE EFFECTS OF NOT REPOSITIONING. WILL CONTINUE TO OFFER THROUGHOUT THE SHIFT. ALL SAFETY MEASURES ARE IN PLACE WILL CONTINUE TO MONITOR.
[2019-01-09 16:00] VITALS: BP 113/62
--- NOTE | 2019-01-09 17:30 | NUR ---
PATIENT IS AA0X4, RESTING IN BED WITH FAMILY AT BEDSIDE. RESTING IN BED, PAIN MEDICATIONS GIVEN, MEDICATIONS TOLERATED WELL. BED IN LOW POSITION, CALL LIGHT ON AND WITHIN REACH. WILL CONTINUE TO MONITOR.
--- NOTE | 2019-01-09 19:30 | NUR ---
RECEIVED BEDSIDE REPORT FROM AM SHIFT NURSE. FAMILY AT BEDSIDE. PATIENT LYING IN BED AWAKE AND ALERT. NO SOB OR DISTRESS NOTED. ON ROOM AIR. PICC LINE NOTED ON RIGHT UPPER ARM, PATENT AND INTACT. COLOSTOMY IN PLACE. INITIAL ASSESSMENT DONE. BOARD UPDATED. BED IN LOW. CALL LIGHT PLACED WITHIN PT REACH. WILL CONTINUE TO MONITOR PATIENT.
[2019-01-09 20:00] VITALS: BP 101/61
[2019-01-09] MEDS ORDERED: VANCOMYCIN 1,000 MG VIAL ONE (20:10)
--- NOTE | 2019-01-09 20:14 | NUR ---
PRN DILAUDID GIVEN AT THIS TIME PER PATIENT REQUEST. WILL CONTINUE TO MONITOR PATIENT.
[2019-01-09] MEDS: MULTIVITAMIN-12 10 ML in DEXTROSE 50% 760 ML, AMINO ACIDS 8.5% 760 ML, FAT EMULSION 20%... IV SCH ×4 (20:19)
--- NOTE | 2019-01-09 21:05 | NUR ---
ROUNDS DONE. PT REFUSED TO BE REPOSITIONED. ENFORCED PT WILL BE NPO AFTER MIDNIGHT. MOTHER AT BEDSIDE. WILL CONTINUE TO MONITOR PATIENT.
[2019-01-09 21:47] LABS: BASOPHILS # (AUTO) 0.1 K/uL (0.00-0.22); BASOPHILS % (AUTO) 0.7 % (0.0-2.0); EOSINOPHILS # (AUTO) 0.7 K/uL (0-0.4); EOSINOPHILS % (AUTO) 6.3 % (0.0-4.0); HEMATOCRIT 23.5 % (36-52); LYMPHOCYTES # (AUTO) 2.2 K/uL (2.0-11.5); LYMPHOCYTES % (AUTO) 18.8 % (20.5-51.1); MEAN CORPUSCULAR HEMOGLOBIN 28 pg (27-31); MEAN CORPUSCULAR HGB CONC 31 g/dL (33-37); MEAN CORPUSCULAR VOLUME 89.2 fL (80-94); MONOCYTES # (AUTO) 1.2 K/uL (0.8-1.0); MONOCYTES % (AUTO) 10.2 % (1.7-9.3); NEUTROPHILS # (AUTO) 7.4 K/uL (1.8-7.7); PLATELET COUNT (AUTO) 500 K/uL (140-450); RED BLOOD CELL COUNT(AUTO) 2.63 MIL/uL (4.20-6.10); WHITE BLOOD COUNT (AUTO) 11.6 K/uL (4.8-10.8)
[2019-01-09] MEDS: fentaNYL 0.075 MG/HR PATCH TD SCH (22:18)
--- NOTE | 2019-01-09 22:18 | NUR ---
FENTANYL PATCHES APPLIED AT THIS TIME. ONE ON LEFT SHOULDER AND ONE ON RIGHT SHOULDER. WILL CONTINUE TO MONITOR PATIENT.
[2019-01-09 22:51] LABS: HEMOGLOBIN 7.3 g/dL (12.0-18.0)
--- NOTE | 2019-01-09 23:22 | NUR ---
PRN DILAUDID GIVEN AT THIS TIME PER PATIENT REQUEST. WILL CONTINUE TO MONITOR PATIENT.
[2019-01-10 00:10] VITALS: BP 103/56
--- NOTE | 2019-01-10 01:00 | NUR ---
PT REFUSED WOUND ASSESSMENT AND REPOSITIONING AT THIS TIME. WILL CONTINUE TO MONITOR PATIENT.
[2019-01-10] MEDS: TOBRAMYCIN 80 MG in DEXTROSE 5% 100 ML IV SCH ×2 (01:16→12:59)
[2019-01-10] MEDS: HYDROmorphone PFS 2 MG/ML SYR IVP PRN ×7 (02:37→20:44)
--- NOTE | 2019-01-10 02:37 | NUR ---
PRN DILAUDID GIVEN AT THIS TIME PER PATIENT REQUEST. WILL CONTINUE TO MONITOR PATIENT.
--- NOTE | 2019-01-10 03:40 | NUR ---
ROUNDS DONE. VISIBLE CHEST RISE AND FALL NOTED. CALL LIGHT WITHIN PATIENT REACH. WILL CONTINUE TO MONITOR PATIENT.
--- NOTE | 2019-01-10 04:05 | NUR ---
VITAL SIGNS TAKEN. PT REFUSED TO BE REPOSITIONED AT THIS TIME. WILL CONTINUE TO MONITOR PATIENT.
[2019-01-10 04:10] VITALS: BP 95/61
[2019-01-10] MEDS: MEROPENEM 1,000 MG in NACL 0.9% 100 ML IV SCH ×3 (05:40→22:00)
--- NOTE | 2019-01-10 05:40 | NUR ---
PRN DILAUDID GIVEN AT THIS TIME PER PATIENT REQUEST. WILL CONTINUE TO MONITOR PATIENT.
--- NOTE | 2019-01-10 07:10 | NUR ---
PT IN STABLE CONDITION. CALL LIGHT WITHIN PATIENT REACH. ENDORSED TO AM SHIFT NURSE FOR CONTINUITY OF CARE.
--- NOTE | 2019-01-10 07:11 | NUR ---
RECEIVED BEDSIDE REPORT FROM CANDY POLISHER NURSE FOR CONTINUITY OF CARE. PATIENT LYING IN BED AWAKE AND ALERT. NO SOB OR DISTRESS NOTED ON ROOM AIR. PICC LINE NOTED ON RIGHT UPPER ARM, PATENT AND INTACT. COLOSTOMY IN PLACE. INITIAL ASSESSMENT DONE. BOARD UPDATED. URINAL EMPTIED OF 400 ML LIGHT NANY URINE. PATIENT AWARE OF NEXT SCHEDULED PAIN MEDICATION. SAFETY AND ISOLATION PRECAUTIONS IN PLACE. BED IN LOW POSITION. CALL LIGHT PLACED WITHIN PT REACH. WILL CONTINUE TO MONITOR PATIENT.
[2019-01-10 08:00] VITALS: BP 101/58
[2019-01-10] MEDS: VANCOMYCIN 750 MG in DEXTROSE 5% 250 ML IV SCH ×2 (08:34→20:42)
[2019-01-10] MEDS: METHYLNALTREXONE SUBQ SCH (08:47)
--- NOTE | 2019-01-10 08:47 | NUR ---
ORDERED MEDICATIONS GIVEN. PATIENT MEDICATED FOR 10/10 CHRONIC BODY PAIN WITH PRN PAIN MEDICATION. PATIENT TOLERATED THEM WELL. NO COMPLAINTS AT THIS TIME. PATIENT AWARE OF PROCEDURE WITH DR. CAICEDO SCHEDULE AT 1200. SAFETY AND ISOLATION PRECAUTIONS IN PLACE, CALL LIGHT WITHIN REACH, WILL CONTINUE TO MONITOR PATIENT.
--- NOTE | 2019-01-10 09:10 | NUR ---
PAGELauren GREEN ABOUT CRITICAL LAB. WAITING FOR HIM TO CALL BACK FOR NEW ORDERS. Addendum: 01/10/19 at 0939 by Rachid Whitfield RN WRONG PATIENT. INFORMED GÉNESIS ALEXANDER.
--- NOTE | 2019-01-10 11:00 | NUR ---
P.T. NOTES PATIENT REFUSED TO PARTICIPATE WITH P.T. EVAL AND FOLLOW SERVICES IN SPITE OF SEVERAL ENCOURAGEMENTS GIVEN. HIS RN WAS MADE AWARE OF HIS REFUSAL.
--- NOTE | 2019-01-10 11:30 | NUR ---
PATIENT MEDICATED FOR 11/18 CHRONIC BODY PAIN WITH PRN PAIN MEDICATION. PATIENT TOLERATED THEM WELL. NO COMPLAINTS AT THIS TIME. AUTO STRIPERGÉNESIS MANTILLA CAME IN TO ASK PATIENT TO ALLOW DIE REAMER TO DRAW BLOOD FOR CBC. PT AGREED TO ALLOW DIE REAMER TO DRAW BLOOD. DIE REAMER WILL BE BE HERE TO DRAW BLOOD. DR. CALLAHAN WANTS TO SEE RESULTS. SAFETY AND ISOLATION PRECAUTIONS IN PLACE, CALL LIGHT WITHIN REACH, WILL CONTINUE TO MONITOR PATIENT. Addendum: 01/10/19 at 1937 by Rachid Whitfield RN 10/19 PAIN
[2019-01-10 12:00] VITALS: BP 102/63
[2019-01-10 12:33] LABS: BASOPHILS # (AUTO) 0.1 K/uL (0.00-0.22); BASOPHILS % (AUTO) 0.8 % (0.0-2.0); EOSINOPHILS # (AUTO) 0.7 K/uL (0-0.4); EOSINOPHILS % (AUTO) 5.2 % (0.0-4.0); HEMATOCRIT 24.5 % (36-52); HEMOGLOBIN 7.8 g/dL (12.0-18.0); LYMPHOCYTES # (AUTO) 2.5 K/uL (2.0-11.5); LYMPHOCYTES % (AUTO) 18.9 % (20.5-51.1); MEAN CORPUSCULAR HEMOGLOBIN 28 pg (27-31); MEAN CORPUSCULAR HGB CONC 32 g/dL (33-37); MEAN CORPUSCULAR VOLUME 88.9 fL (80-94); MONOCYTES # (AUTO) 1.4 K/uL (0.8-1.0); NEUTROPHILS # (AUTO) 8.3 K/uL (1.8-7.7); NEUTROPHILS % (AUTO) 64.1 % (42.2-75.2); PLATELET COUNT (AUTO) 551 K/uL (140-450); RED BLOOD CELL COUNT(AUTO) 2.75 MIL/uL (4.20-6.10)
[2019-01-10 12:46] LABS: ALBUMIN 1.1 g/dL (3.4-5.0); ANION GAP 11.3 (8-16); CREATININE 0.7 mg/dL (0.7-1.3); PHOSPHORUS 5.1 mg/dL (2.5-4.9); POTASSIUM 4.3 mmol/L (3.5-5.1); TOTAL BILIRUBIN 0.2 mg/dL (0.0-1.0)
[2019-01-10] MEDS: THERAHONEY GEL 42.5 GM TP SCH (13:00)
--- NOTE | 2019-01-10 14:02 | NUR ---
PT'S PHOSPHORUS 5.1, PHARMACIST MILY CALLED AND INQUIRED IF DR. GREEN WANTED TO PUT IN NEW ORDERS. PAGED DR. GREEN, INFORMED HIM ABOUT PHOSPHORUS LEVEL, NO NEW ORDERS FOR THAT. INFORMED PHARMACIST, OMI, SHE WILL RELAY MESSAGE TO MILY. INFORMED DR GREEN ABOUT PATIENT'S PROCEDURE WTIH DR. CAICEDO POSTPONED UNTIL 01/11/19, NO TIME YET. NEW ORDERS IN FOR PATIENT TO BE BACK TO REGULAR DIET AND NPO AFTER MIDNIGHT.
--- NOTE | 2019-01-10 14:42 | NUR ---
PT MEDICATED WITH PRN DILAUDID FOR 11/18 CHRONIC BODY PAIN AT 1430. EMPLOYEE COMMUNICATIONS SPECIALIST DOWN. EMPLOYEE COMMUNICATIONS SPECIALIST CURRENTLY UP AT 1442 AND HAS BEEN INPUT INTO EMAR. PATIENT AWARE OF NEXT SCHEDULED DOSE. PATIENT ALSO AWARE OF CURRENTLY REGULAR DIET AND NPO AFTER MIDNIGHT FOR PROCEDURE WITH DR. CAICEDO TOMORROW. CALL LIGHT WITHIN REACH, WILL CONTINUE TO MONITOR PATIENT. Addendum: 01/10/19 at 1937 by Rachid Whitfield RN 10/19 PAIN
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
[2019-01-10 16:00] VITALS: BP 101/59
--- NOTE | 2019-01-10 17:37 | NUR ---
PT MEDICATED WITH PRN DILAUDID FOR 11/18 CHRONIC BODY PAIN AT 1737. PATIENT TOLERATED IT WELL. MOTHER AT BEDSIDE. SAFETY AND ISOLATION PRECAUTIONS IN PLACE, CALL LIGHT WITHIN REACH, WILL CONTINUE TO MONITOR PATIENT. Addendum: 01/10/19 at 1936 by Rachid Whitfield RN 10/19 PAIN
--- NOTE | 2019-01-10 18:30 | NUR ---
CHARLIE SCOTT. WILL WAIT FOR HIS CALL BACK TO INFORM HIM OF LAB RESULTS.
--- NOTE | 2019-01-10 19:05 | NUR ---
REPORT GIVEN TO TIRE MAKER NURSE AT BEDSIDE FOR CONTINUITY OF CARE. PATIENT IN STABLE CONDITION.
--- NOTE | 2019-01-10 19:16 | NUR ---
DR SCOTT CALLED BACK, INFORMED HIM OF BLOOD CULTURES. HE ORDERED BLOOD CULTURE IN THE AM. ORDER NOTED AND WILL BE CARRIED OUT.
--- NOTE | 2019-01-10 19:17 | NUR ---
RECEIVED BEDSIDE REPORT FROM DAY SHIFT NURSECIRA FOR CONTINUITY OF CARE. PATIENT LYING IN BED AWAKE AND ALERT. MOM AT BEDSIDE. NO SOB OR DISTRESS NOTED ON ROOM AIR. PICC LINE NOTED ON RIGHT UPPER ARM, PATENT AND INTACT. COLOSTOMY IN PLACE. PT REFUSED WOUND ASSESSMENT. BOARD UPDATED. URINAL EMPTIED OF 400 ML LIGHT NANY URINE. PATIENT AWARE OF NEXT SCHEDULED PAIN MEDICATION. SAFETY AND ISOLATION PRECAUTIONS IN PLACE. BED IN LOW POSITION. CALL LIGHT PLACED WITHIN PT REACH. WILL CONTINUE TO MONITOR PATIENT.
[2019-01-10 20:00] VITALS: BP 109/48
[2019-01-10] MEDS: MULTIVITAMIN-12 10 ML in DEXTROSE 50% 760 ML, AMINO ACIDS 8.5% 760 ML, FAT EMULSION 20%... IV SCH ×4 (20:41)
--- NOTE | 2019-01-10 20:44 | NUR ---
GIVEN TPN AND VANCOMYCIN MD ORDERED. PT C/O 09/18 PAIN, GIVEN DILAUDID MD ORDERED. PT TOLERATED WELL.
--- NOTE | 2019-01-10 22:00 | NUR ---
GIVEN MERREM MD ORDERED. PT TOLERATED WELL.
[2019-01-11] VITALS: BP 104/54
[2019-01-11] MEDS: HYDROmorphone PFS 2 MG/ML SYR IVP PRN ×7 (00:15→22:05)
--- NOTE | 2019-01-11 00:15 | NUR ---
VS CHECKED, WITHIN PT'S BASELINE. GIVEN TOBRAMYCIN MD ORDERED. PT C/O 09/18 PAIN, GIVEN DILAUDID MD ORDERED. PT TOLERATED WELL.
[2019-01-11] MEDS: TOBRAMYCIN 80 MG in DEXTROSE 5% 100 ML IV SCH ×2 (00:21→13:11)
--- NOTE | 2019-01-11 02:03 | NUR ---
PT REFUSED TO CHANGE POSITION. Addendum: 01/11/19 at 0204 by Angelita Jeffery RN PT STATES, HE WILL CHANGE POSITION BY HIMSELF.
--- NOTE | 2019-01-11 03:18 | NUR ---
PT C/O 09/18 PAIN, GIVEN DILAUDID MD ORDERED. PT TOLERATED WELL.
[2019-01-11 04:00] VITALS: BP 93/50
[2019-01-11] MEDS: MEROPENEM 1,000 MG in NACL 0.9% 100 ML IV SCH ×3 (04:14→21:56)
--- NOTE | 2019-01-11 04:14 | NUR ---
GIVEN MERREM MD ORDERED. PT TOLERATED WELL. VS CHECKED, WITHIN PT'S BASELINE. WILL CONTINUE TO MONITOR.
--- NOTE | 2019-01-11 06:27 | NUR ---
PT C/O 09/18 PAIN. GIVEN DILAUDID MD ORDERED. PT TOLERATED WELL.
--- NOTE | 2019-01-11 07:20 | NUR ---
REPORT RECEIVED FROM NURSE ESTEVEZ. pT SLEEPING, AROUSABLE TO VERBAL STIMULI. NO S/S OF ACUTE DISTRESS NOTED AT THIS TIME. PT CONTINUING TO RECEIVE TPN TO RUE PICC LINE INFUSING WELL, SITE INTACT, NO REDNESS OR SWELLING NOTED. CALL LIGHT AMD PERSONAL ITEMS WITHIN EASY REACH, SAFETY AND FALL PRECAUTIONS IN PLACE,NO S/S OF ACUTE DISTRESS AT THIS TIME, WILL CONTINUE TO MONITOR.
--- NOTE | 2019-01-11 08:00 | NUR ---
PT STATES HE IS SLEEPY, REFUSED COMPLETE ASSESSMENT, REFUSED VITAL SIGNS, REFUSED REPOSITIONING; EDUCATION PROVIDE, WILL TRY AGAIN LATER. CALL LIGHT AND PERSONAL ITEMS WITHIN EASY REACH, SAFETY AND FALL PRECAUTIONS IN PLACE,NO S/S OF ACUTE DISTRESS AT THIS TIME, WILL CONTINUE TO MONITOR.
[2019-01-11 08:04] LABS: BASOPHILS # (AUTO) 0.1 K/uL (0.00-0.22); BASOPHILS % (AUTO) 0.5 % (0.0-2.0); EOSINOPHILS # (AUTO) 0.6 K/uL (0-0.4); EOSINOPHILS % (AUTO) 5.9 % (0.0-4.0); HEMATOCRIT 25.9 % (36-52); HEMOGLOBIN 8.3 g/dL (12.0-18.0); LYMPHOCYTES # (AUTO) 2.3 K/uL (2.0-11.5); LYMPHOCYTES % (AUTO) 21.2 % (20.5-51.1); MEAN CORPUSCULAR HEMOGLOBIN 28 pg (27-31); MEAN CORPUSCULAR HGB CONC 32 g/dL (33-37); MEAN CORPUSCULAR VOLUME 89.1 fL (80-94); MONOCYTES # (AUTO) 1.3 K/uL (0.8-1.0); MONOCYTES % (AUTO) 11.5 % (1.7-9.3); NEUTROPHILS # (AUTO) 6.7 K/uL (1.8-7.7); NEUTROPHILS % (AUTO) 60.9 % (42.2-75.2); PLATELET COUNT (AUTO) 591 K/uL (140-450); RED BLOOD CELL COUNT(AUTO) 2.91 MIL/uL (4.20-6.10); RED CELL DISTRIBUTION WIDTH 16.7 % (11.6-13.7); WHITE BLOOD COUNT (AUTO) 10.9 K/uL (4.8-10.8)
[2019-01-11 08:24] LABS: PHOSPHORUS 4.8 mg/dL (2.5-4.9)
[2019-01-11 08:48] LABS: ANION GAP 13.6 (8-16); CARBON DIOXIDE 27.4 mmol/L (21-32); CREATININE 0.7 mg/dL (0.7-1.3)
--- NOTE | 2019-01-11 09:00 | NUR ---
PT CONTINUES TO REFUSE V/S ASSESSMENT AND REPOSITIONING; WILL FOLLOW UP. CALL LIGHT AND PERSONAL ITEMS WITHIN EASY REACH, SAFETY AND FALL PRECAUTIONS IN PLACE,NO S/S OF ACUTE DISTRESS AT THIS TIME, WILL CONTINUE TO MONITOR.
[2019-01-11] MEDS: VANCOMYCIN 750 MG in DEXTROSE 5% 250 ML IV SCH ×2 (09:04→19:50)
[2019-01-11] MEDS: METHYLNALTREXONE SUBQ SCH (09:04)
--- NOTE | 2019-01-11 09:22 | NUR ---
JOSE RAFAEL -OR NURSE MADE AWARE OF BLE ULTRASOUND POST DEBRIDEMENT TO BE DONE IN PACU. RADHA PINK TECH NOTIFIED WELL.
[2019-01-11 09:40] VITALS: BP 105/58
[2019-01-11] MEDS ORDERED: KETAMINE 500 MG/5 ML VIAL ONE (10:57)
[2019-01-11] MEDS ORDERED: MIDAZOLAM 2 MG/2 ML VIAL ONE (10:57)
--- NOTE | 2019-01-11 11:00 | NUR ---
PT TRANSPORTED TO or VIA BED NO S/S OF ACUTE DISTRESS NOTED.
[2019-01-11] MEDS ORDERED: METOPROLOL 5 MG/5 ML VIAL ONE (11:01)
[2019-01-11] MEDS ORDERED: ONDANSETRON 4 MG/2 ML VIAL IVP PRN (11:30)
[2019-01-11] MEDS ORDERED: HYDROmorphone 1 MG/ML AMP IVP PRN (11:30)
--- NOTE | 2019-01-11 12:00 | NUR ---
EMR NOTED TO HAVE NOT SAVED 0940 ADMINISTRATION OF IVP DILAUDID, MANUALLY ENTERED INTO EMR.
[2019-01-11 12:50] VITALS: BP 130/69
--- NOTE | 2019-01-11 12:50 | NUR ---
PT RETURNED FROM SURGICAL SERVICES VIA BED, SLEEPY, NO S/S OF ACUTE DISTRESS NOTED. STONE LATHE OPERATOR AT BEDSIDE TO PERFORM TROUGH LEVEL PER ORDER, PER SURGICAL NURSES BLE ULTRASOUND COMPLETED IN SURGICAL DEPT. CALL LIGHT AND PERSONAL ITEMS PLACED WITHIN EASY REACH, SAFETY AND FALL PRECAUTIONS IN PLACE, WILL CONTINUE TO MONITOR.
[2019-01-11] MEDS: THERAHONEY GEL 42.5 GM TP SCH (13:00)
--- NOTE | 2019-01-11 14:30 | NUR ---
PT AROUSABLE TO VERBAL STIMULI, CONTINUES TO DEMONSTRATE DIMINISHING SEDATION EFFECTS, REFUSED ASSISTANCE TO REPOSITION. CALL LIGHT AND PERSONAL ITEMS PLACED WITHIN EASY REACH, SAFETY AND FALL PRECAUTIONS IN PLACE, WILL CONTINUE TO MONITOR.
--- NOTE | 2019-01-11 15:20 | NUR ---
01/11/19 RD FOLLOW UP COMPLETED PLEASE REFER TO NUTRITION ASSESSMENT UNDER CARE ACTIVITY FOR ESTIMATED NUTRITIONAL NEEDS. 1. CONTINUE REGULAR DIET W/ELECARE JR TID 2. ENCOURAGED PT AND PTS MOTHER TO RECORD DAILY FOOD INTAKE ON A FOOD LOG 3. ENCOURAGE FAMILY TO BRING SUPPLEMENTS AND FOOD FROM HOME IF APPROPRIATE PER MD 4. RECOMMEND INCREASING TPN INFUSION WHEN MEDICALLY APPROPRIATE TO MEET75% OF ESTIMATED NEEDS 5. CONTINUE RODRIGUEZ BID 6. ENCOURAGE INCREASING PO INTAKE 7. RD WILL FOLLOW UP 2-3 DAYS, HIGH RISK ALEXEI JOHNSTON RD
[2019-01-11 16:00] VITALS: BP 117/77
--- NOTE | 2019-01-11 17:10 | NUR ---
PT A/O ABLE TO COMMUNICATE NEEDS, PT MOTHER AT BEDSIDE. OFFERED TO ASSIST WITH REPOSITIONING TO DECREASE PRESSURE TO BUTTOCKS AND SACRUM AND REDUCE RISK OF PRESSURE INJURY, PT REFUSED. OFFERED TO ASSIST TO REPOSITION, PT REFUSED, PROVIDED WARM BLANKET PER PT REQUEST. PER PT PAIN TOLERABLE AT THIS TIME. CALL LIGHT AND PERSONAL ITEMS REMAIN WITHIN EASY REACH, SAFETY AND FALL PRECAUTIONS IN PLACE, WILL CONTINUE TO MONITOR.
--- NOTE | 2019-01-11 18:05 | NUR ---
VITA Perez [facility], REQUESTING PT INFORMATION FACE SHEET FOR TRANSFER EVALUATION, INFORMATION REQUESTED OBTAINED, NOTIFIED CHARGE NURSE AND DELEGATED TO US MENDOSA.
--- NOTE | 2019-01-11 18:20 | NUR ---
PT REMAINS A/O ABLE TO COMMUNICATE NEEDS. PT MEDICATED X2 FOR C/O PAIN WITH EFFECTIVENESS. PT C/O PAIN, OFFERED REPOSITION FOR COMFORT, PT DENIED, MEDICATED FOR PAIN PER REQUEST. HAS CALL LIGHT AND PERSONAL ITEMS WITHIN EASY REACH, SAFETY AND FALL PRECAUTIONS IN PLACE,NO S/S OF ACUTE DISTRESS AT THIS TIME, WILL CONTINUE TO MONITOR.
--- NOTE | 2019-01-11 18:35 | NUR ---
FAX CONFIRMATION OF INFORMATION REQUESTED BY JERAMIE KNIGHT
--- NOTE | 2019-01-11 19:33 | NUR ---
PT RESTING, APPEARS COMFORTABLE, REPORT ENDORSED TO NURSE GAMING.
--- NOTE | 2019-01-11 19:33 | NUR ---
RECIEVED PT , SLEEPING BUT AWAKABLE BY SHAKING AND BY NAME , POST DRESSING CHANGED UNDER ANESTHESIA , O2 SAT 96% , ON ARMHOLE FELLER HANDSTITCHING MACHINE - TACHYCARDIC , BP 111/69 , AFEBRILE , MOTHER ON BED SIDE , WITH PICC ON THE RIGHT UPPER ARM INTACT AND PATENT - ON TPN AT 70 CC /HR , USES URINAL , ON WOUND BED , POC DISCUSSED AND PT RESPONSED BY HEAD NODDING , WILL CONT. TO MONITOR. Addendum: 01/11/19 at 2144 by Ashlyn Goodwin RN WITH MULTIPLE CHRONIC WOUNDS - REFUSED TO SHOW AT THIS TIME - WILL TRY LATER TO SEE ANY UNTOWARDS MANIFESTATION - BEDBOUND.
[2019-01-11] MEDS: MULTIVITAMIN-12 10 ML in DEXTROSE 50% 760 ML, AMINO ACIDS 8.5% 760 ML, FAT EMULSION 20%... IV SCH ×4 (19:49)
[2019-01-11 20:00] VITALS: BP 111/69
--- NOTE | 2019-01-11 22:00 | NUR ---
FULLY AWAKE , CONVERSANT , NO SIGNS OF ACUTE DISTRESS NOTED AT THIS TIME - USES URINAL - VOIDED FREELY WITH CLEAR U.O 800CC - WILL CONT. TO MONITOR.
[2019-01-11] MEDS: ONDANSETRON 4 MG/2 ML VIAL IVP PRN (22:02)
[2019-01-12] VITALS: BP 111/60
--- NOTE | 2019-01-12 00:34 | NUR ---
ARLEN FROM [facility] CALL - SHE SAID NO AVAILABLE BED YET AT THIS TIME - THEY ARE STILL LOOKING FOR AVAILABILITY OF BED.
[2019-01-12] MEDS: TOBRAMYCIN 80 MG in DEXTROSE 5% 100 ML IV SCH ×2 (01:02→13:02)
[2019-01-12 04:00] VITALS: BP 100/62
--- NOTE | 2019-01-12 04:00 | NUR ---
MADE ROUNDS , NO SIGNS OF ACUTE DISTRESS NOTED AT THIS TIME , CALL LIGHT WITH IN REACH , WILL CONT. TO MONITOR.
--- NOTE | 2019-01-12 04:22 | NUR ---
RECEIVED CALL FROM LANE FROM [facility] THAT THERE'S NO BED AVAILABLE YET FOR THE PATIENT.
[2019-01-12] MEDS: MEROPENEM 1,000 MG in NACL 0.9% 100 ML IV SCH ×3 (04:49→21:13)
[2019-01-12] MEDS: HYDROmorphone PFS 2 MG/ML SYR IVP PRN ×6 (05:16→23:51)
--- NOTE | 2019-01-12 07:10 | NUR ---
endorsed to am shift with stable condition.
--- NOTE | 2019-01-12 07:12 | NUR ---
RECEIVED REPORT FROM NIGHT NURSE. PATIENT IS ASLEEP, ABLE TO WAKE. NO S/S OF DISTRESS NOTED. PICC LINE INTACT AND PATENT TO [place]. TPN INFUSING @70ML/HR, TOLERATING WELL. CALL LIGHT WITHIN REACH.
[2019-01-12 08:00] VITALS: BP 99/58
[2019-01-12] MEDS: VANCOMYCIN 750 MG in DEXTROSE 5% 250 ML IV SCH ×2 (08:16→19:50)
--- NOTE | 2019-01-12 08:20 | NUR ---
IV VANCOMYCIN 750MG INFUSING @ 165ML/HR ORDERED PER PHARMACY PROTOCOL. PATIENT IS AWAKE, VERBALLY RESPONSIVE. PT REFUSED RELISTOR INJECTION. EDUCATED ABOUT THE RISK AND BENEFITS.
[2019-01-12] MEDS: METHYLNALTREXONE SUBQ SCH (08:32)
--- NOTE | 2019-01-12 10:00 | NUR ---
PATIENT IS AWAKE, ALERT AND ORIENTED X4, WATCHING TV. NO S/S OF DISTRESS NOTED. IV TPN INFUSING @ 70ML/HR. TOLERATING WELL. CALL LIGHT WITHIN REACH.
[2019-01-12 12:00] VITALS: BP 116/61
--- NOTE | 2019-01-12 12:05 | NUR ---
RECEIVED A CALL FROM [facility] [place], NO BED AVAILABLE OF THIS TIME. [facility] STATED THAT THEY WILL CALL BACK AROUND 1555 HRS TODAY TO GIVE US AN UPDATE. DR. GREEN ON ROUNDS MADE AWARE.
[2019-01-12 12:10] LABS: BASOPHILS # (AUTO) 0.1 K/uL (0.00-0.22); BASOPHILS % (AUTO) 0.6 % (0.0-2.0); EOSINOPHILS # (AUTO) 0.5 K/uL (0-0.4); EOSINOPHILS % (AUTO) 4.8 % (0.0-4.0); HEMATOCRIT 24.4 % (36-52); HEMOGLOBIN 7.8 g/dL (12.0-18.0); LYMPHOCYTES # (AUTO) 2.2 K/uL (2.0-11.5); LYMPHOCYTES % (AUTO) 20.3 % (20.5-51.1); MEAN CORPUSCULAR HEMOGLOBIN 29 pg (27-31); MEAN CORPUSCULAR HGB CONC 32 g/dL (33-37); MEAN CORPUSCULAR VOLUME 88.9 fL (80-94); MONOCYTES # (AUTO) 1.5 K/uL (0.8-1.0); MONOCYTES % (AUTO) 13.9 % (1.7-9.3); NEUTROPHILS # (AUTO) 6.5 K/uL (1.8-7.7); NEUTROPHILS % (AUTO) 60.4 % (42.2-75.2); PLATELET COUNT (AUTO) 528 K/uL (140-450); RED BLOOD CELL COUNT(AUTO) 2.75 MIL/uL (4.20-6.10); RED CELL DISTRIBUTION WIDTH 16.4 % (11.6-13.7); WHITE BLOOD COUNT (AUTO) 10.7 K/uL (4.8-10.8)
--- NOTE | 2019-01-12 12:24 | NUR ---
ENCOURAGED PATIENT TO EAT MEALS. C/O PAIN AND MEDICATED ORDERED PRN. PT C/O NAUSEA WILL GIVE ZOFRAN. WILL CONTINUE TO MONITOR.
--- NOTE | 2019-01-12 12:30 | NUR ---
PT REFUSED ZOFRAN FOR NAUSEA. STATED HE DOES NEED IT NOW.
--- NOTE | 2019-01-12 12:43 | NUR ---
RECEIVED ORDER FROM DR. SCOTT COVERING MD TO CONTINUE VANCOMYCIN PER PHARMACY PROTOCOL X 2 WEEKS. NOTIFIED PHARMACY.
[2019-01-12] MEDS ORDERED: VANCOMYCIN PER PHARMACY MC PRN (12:45)
[2019-01-12] MEDS: THERAHONEY GEL 42.5 GM TP SCH (13:00)
[2019-01-12 14:13] LABS: ANION GAP 13.9 (8-16); CARBON DIOXIDE 25.4 mmol/L (21-32); CREATININE 0.7 mg/dL (0.7-1.3); POTASSIUM 4.3 mmol/L (3.5-5.1)
--- NOTE | 2019-01-12 15:00 | NUR ---
PATIENT ALERT AND ORIENTED X4. WATCHING TV. NO S/S OF DISTRESS NOTED. CALL LIGHT WITHIN REACH.
[2019-01-12 16:00] VITALS: BP 101/59
--- NOTE | 2019-01-12 16:58 | NUR ---
STILL NO BED AVAILABLE AT [facility]
--- NOTE | 2019-01-12 17:00 | NUR ---
PT GOT MEDICATED FOR SEVERE C/O PAIN. PT AWAKE AND VERBALLY RESPONSIVE. TPN INFUSING @ 70ML. TOLERATING WELL. WILL CONTINUE TO MONITOR.
--- NOTE | 2019-01-12 19:25 | NUR ---
REPORT GIVEN TO NIGHT NURSE. PATIENT IN STABLE CONDITION.
--- NOTE | 2019-01-12 19:26 | NUR ---
Received endorsement from AM shift RN; patient A/Ox4, able to make needs known, Uzbek speaking, bedbound. Patient is talking with mother Saray; introduced self, updated board. No SOB or distress noted, on room air. On contact precautions for MDRO wounds; observed and maintained. IV site on right upper arm PICC line, double lumen, running TPN at 70mL/hr and NS running at 10mL/hr. Colostomy noted. 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 Bed in the lowest position, call light within reach. Initial assessment done. Will continue to monitor.
[2019-01-12] MEDS: MULTIVITAMIN-12 10 ML in DEXTROSE 50% 760 ML, AMINO ACIDS 8.5% 760 ML, FAT EMULSION 20%... IV SCH ×4 (19:51)
[2019-01-12 20:00] VITALS: BP 93/53
--- NOTE | 2019-01-12 20:20 | NUR ---
Vitals taken, no distress noted.
[2019-01-12] MEDS: fentaNYL 0.075 MG/HR PATCH TD SCH (21:20)
--- NOTE | 2019-01-12 21:30 | NUR ---
Due meds given, tolerated well.
--- NOTE | 2019-01-12 23:51 | NUR ---
Vitals taken, no distress noted. Patient resting comfortably.
[2019-01-13] VITALS: BP 95/52
[2019-01-13] MEDS: TOBRAMYCIN 80 MG in DEXTROSE 5% 100 ML IV SCH ×2
--- NOTE | 2019-01-13 01:08 | NUR ---
Refused wound care and repositioning at this time.
--- NOTE | 2019-01-13 02:10 | NUR ---
Rounds done; patient asleep, visible chest rise and fall noted.
[2019-01-13] MEDS: HYDROmorphone PFS 2 MG/ML SYR IVP PRN (03:14)
[2019-01-13 04:00] VITALS: BP 117/59
[2019-01-13] MEDS: MEROPENEM 1,000 MG in NACL 0.9% 100 ML IV SCH (04:11)
[2019-01-13] MEDS: METHYLNALTREXONE SUBQ SCH (09:00)
--- NOTE | 2019-01-14 07:15 | NUR ---
REPORT RECEIVED FROM NIGHT NURSE. PT AAOX4. PT STATES HAVING PAIN OF 10 IN WOUND AREA. RESPIRATIONS EVEN AND UNLABORED ON ROOM AIR. RECEIVING TPN AT 70MLS/HR. BED IN LOW POSITION. SAFETY MEASURES IN PLACE. CALL LIGHT WITHIN REACH. WILL CONTINUE TO MONITOR.
[2019-01-14] MEDS: HYDROmorphone PFS 2 MG/ML SYR IVP PRN (08:26)
[2019-01-14] MEDS: VANCOMYCIN 750 MG in DEXTROSE 5% 250 ML IV SCH (08:27)
--- NOTE | 2019-01-14 08:36 | NUR ---
MEDICATIONS ADMINISTERED PER ORDER. PT TOLERATED WELL. NO DISTRESS NOTED. SAFETY MEASURES IN PLACE. WILL CONTINUE TO MONITOR.
[2019-01-14] MEDS: METHYLNALTREXONE SUBQ SCH (09:00)
[2019-01-14] MEDS: MULTIVITAMIN-12 10 ML in DEXTROSE 50% 760 ML, AMINO ACIDS 8.5% 760 ML, FAT EMULSION 20%... IV SCH ×4 (20:00)
[2019-01-14] MEDS: MEROPENEM 1,000 MG in NACL 0.9% 100 ML IV SCH (21:00)
[2019-01-15] MEDS: MEROPENEM 1,000 MG in NACL 0.9% 100 ML IV SCH ×3 (05:00→23:31)
--- NOTE | 2019-01-15 07:05 | NUR ---
RECEIVED REPORT FROM NIGHT NURSE. PT AAOX4. RESPIRATIONS EVEN AND UNLABORED ON ROOM AIR. CHRONIC WOUNDS PRESENT, PT COMPLAINS OF PAIN, WILL MEDICATE WITH PRN DILAUDID. PICC LINE IN PLACE. TPN INFUSING PER ORDER, PT TOLERATING WELL. SAFETY MEASURES IN PLACE. BED IN LOW POSITION. CALL LIGHT WITHIN REACH. WILL CONTINUE TO MONITOR.
[2019-01-15 08:00] VITALS: BP 95/65
[2019-01-15] MEDS: HYDROmorphone PFS 2 MG/ML SYR IVP PRN ×5 (08:31→21:18)
[2019-01-15] MEDS: METHYLNALTREXONE SUBQ SCH (08:35)
--- NOTE | 2019-01-15 08:36 | NUR ---
MEDICATIONS ADMINISTERED PER ORDER. PT TOLERATED WELL. SAFETY MEASURES IN PLACE. CALL LIGHT WITHIN REACH. WILL CONTINUE TO MONITOR.
[2019-01-15] MEDS ORDERED: TOBRAMYCIN PER PHARMACY MC PRN (11:00)
--- NOTE | 2019-01-15 11:40 | NUR ---
VITAL SIGNS TAKEN AT THIS TIME. PRN DILAUDID GIVEN FOR PAIN. WILL REEVALUATE.
[2019-01-15 12:00] VITALS: BP 113/66
[2019-01-15] MEDS: THERAHONEY GEL 42.5 GM TP SCH (13:00)
--- NOTE | 2019-01-15 13:00 | NUR ---
PT REFUSED TO BE REPOSITIONED AND TO HAVE DRESSING CHANGED. WILL CONTINUE TO MONITOR.
--- NOTE | 2019-01-15 14:45 | NUR ---
PT REQUESTS PAIN MEDICATION. PRN DILAUDID GIVEN FOR SEVERE PAIN. WILL REEVALUATE.
[2019-01-15] MEDS: TOBRAMYCIN 80 MG in DEXTROSE 5% 100 ML IV SCH (14:48)
[2019-01-15 16:00] VITALS: BP 116/90
[2019-01-15] MEDS ORDERED: HYDROmorphone PFS 2 MG/ML SYR ONE (17:39)
--- NOTE | 2019-01-15 17:45 | NUR ---
PT REQUESTS PAIN MEDICATION. WILL MEDICATE WITH PRN DILAUDID.
--- NOTE | 2019-01-15 19:10 | NUR ---
PT ENDORSED TO NIGHT NURSE FOR CONTINUITY OF CARE.
--- NOTE | 2019-01-15 19:30 | NUR ---
RECEIVED BEDSIDE REPORT FROM AM SHIFT GÉNESIS TALBOT, FOR PT'S CONTINUITY OF CARE. PT IS AAOX4, MOTHER IS AT BEDSIDE, AWARE OF THE REGRINDER ROUTINE. PT ON ROOM AIR, ON INSTALLATION TECHNICIAN, FACIAL GRIMACING NOTED, REFUSED TO BE TOUCHED OR REPOSITIONED. WILL CONTINUE TO MONITOR PT.
[2019-01-15 20:00] VITALS: BP 109/68
[2019-01-15] MEDS: MULTIVITAMIN-12 10 ML in DEXTROSE 50% 760 ML, AMINO ACIDS 8.5% 760 ML, FAT EMULSION 20%... IV SCH ×4 (20:04)
[2019-01-15] MEDS: VANCOMYCIN 750 MG in DEXTROSE 5% 250 ML IV SCH (20:04)
--- NOTE | 2019-01-15 20:04 | NUR ---
ADMINISTERED SCHEDULED MEDICATION AND IV TPN ORDERED. PT INQUIRED ABOUT NEXT PAIN MEDICATION AVAILABILITY. EXPLAINED TO PT THE MEDICATION ORDER. PT VERBALIZED UNDERSTANDING. PT VOMITED, OFFERED ZOFRAN, PT REFUSED. PT'S NEEDS MET, WILL CONTINUE TO MONITOR PT.
--- NOTE | 2019-01-15 23:30 | NUR ---
ADMINISTERED SCHEDULED IV ABX AND FENTANYL PATCH ORDERED. PT CRYING AND MOANING DT PAIN. REQUESTED PAIN MEDICATION, EXPLAINED TO PT MED IS NOT DUE AT THIS TIME. PT VERBALIZED UNDERSTANDING.
[2019-01-15] MEDS: fentaNYL 0.075 MG/HR PATCH TD SCH (23:41)
[2019-01-16] VITALS: BP 121/70
[2019-01-16] MEDS: HYDROmorphone PFS 2 MG/ML SYR IVP PRN ×7 (00:21→21:37)
--- NOTE | 2019-01-16 00:40 | NUR ---
ADMINISTERED SCHEDULED IV ABX ORDERED, ALL IV TUBINGS CHANGED TO NEW ONES. PT VOMITED, STILL REFUSED ZOFRAN AFTER OFFERING. PT REFUSED TO BE CHANGED, REPOSITIONED, AND CHG BATH. OFFERED PT OTHER RELAXATION TECHNIQUES TO EASE PAIN, PT REFUSED.
[2019-01-16] MEDS: TOBRAMYCIN 80 MG in DEXTROSE 5% 100 ML IV SCH ×2 (00:41→13:42)
--- NOTE | 2019-01-16 02:30 | NUR ---
PT REQUESTING FOR PAIN MEDICATION. PT MOANING, GUARDING, GRIMACING. EXPLAINED TO PT THAT IT IS NOT DUE AT THIS TIME. WILL PREPARE AND ADMINISTER MEDICATION SOON IT IS DUE. PT VERBALIZED UNDERSTANDING.
[2019-01-16 04:00] VITALS: BP 114/65
--- NOTE | 2019-01-16 05:15 | NUR ---
ADMINISTERED SCHEDULED IV ABX ORDERED. PT STILL IN PAIN. REQUESTED TO CALL MD. PAGED MD FOR ANY NEW ORDERS.
[2019-01-16] MEDS: MEROPENEM 1,000 MG in NACL 0.9% 100 ML IV SCH ×3 (05:17→20:02)
[2019-01-16] MEDS ORDERED: HYDROmorphone PFS 2 MG/ML SYR IVP PRN (05:25)
--- NOTE | 2019-01-16 05:25 | NUR ---
RECEIVED CALL AND ORDER FROM DR. LAY FOR PT'S PAIN. NEW ORDER OF HYDROMORPHONE 1MG ONCE TO BE GIVEN NOW AND 1 MG AT 0615 OR 2MG DEPENDING ON REASSESSMENT, IF PT STILL IN PAIN AND VS WNL. WILL CARRY OUT ORDER. EXPLAINED TO PT REGARDING MD ORDER, PT VERBALIZED UNDERSTANDING.
--- NOTE | 2019-01-16 05:50 | NUR ---
CALLED PHARMACY TO VERIFY MD ORDER AT 0545, MOTHER OF PT CALLED AT 0550 INQUIRING ABOUT MD ORDER. EXPLAINED TO PT'S MOTHER ABOUT THE ORDER, GOT UPSET ABOUT THE MD ORDER, EXPLAINED TO MOTHER THAT MD WANTS TO GIVE 1MG NOW TO HELP WITH PAIN MEDICATION THAT WAS GIVEN AT 0320, AND PT NEEDS TO BE REASSESSED AROUND 0615, PT'S MOTHER VERBALIZED UNDERSTANDING.
--- NOTE | 2019-01-16 05:55 | NUR ---
ADMINISTERED PRN IVP PAIN MEDICATION ONCE ORDERED. PT TEACHING GIVEN REGARDING THE DOSING AND REASSESSMENT. PT VERBALIZED UNDERSTANDING. PT REFUSED TO BE TOUCHED WHEN ASKED ABOUT COLOSTOMY BAG. PT STATES COLOSTOMY BAG IS STILL INTACT.
--- NOTE | 2019-01-16 06:33 | NUR ---
PT REASSESSMENT. PT LYING DOWN APPEARS TO BE ASLEEP WITH NO SIGNS OF DISTRESS. WILL ENDORSE TO AM SHIFT RN FOR PT'S CONTINUITY OF CARE.
--- NOTE | 2019-01-16 07:13 | NUR ---
PT WAS YELLING, MOANING, AND IRRITABLE, REQUESTED FOR PAIN MEDICATION. ADMINISTERED PRN IVP PAIN MEDICATION ORDERED.
--- NOTE | 2019-01-16 07:15 | NUR ---
RECEIVED REPORT FROM PM NURSE, PT IS CRYING BECAUSE HE IS IN PAIN. SAFETY MEASURES IN PLACE. PM NURSE MEDICATED PT. CALL LIGHT WITHIN REACH.
--- NOTE | 2019-01-16 07:58 | NUR ---
HILARY DE LEON, SPOKE WITH [facility], CALLED AND SAID THEY HAVE NO PLACEMENT FOR PT. INFORMED CHARGE NURSE OF THE CALL.
[2019-01-16 08:00] VITALS: BP 119/78
[2019-01-16] MEDS: VANCOMYCIN 750 MG in DEXTROSE 5% 250 ML IV SCH (08:41)
[2019-01-16] MEDS: METHYLNALTREXONE SUBQ SCH ×2 (09:00→18:40)
--- NOTE | 2019-01-16 09:00 | NUR ---
PT REFUSE RELISTOR, INFORMED PT THE SHOT WAS TO HELP HIM POOP. PT REFUSED AND SAID "NO PAIN". INFORMED PT HIS DILAUDID WILL CAUSE HIM TO BE CONSTIPATED. PT ACCEPTED IV ANTIBIOTICS.
[2019-01-16 10:08] LABS: MAGNESIUM 2.2 mg/dL (1.8-2.4); PHOSPHORUS 5.9 mg/dL (2.5-4.9)
--- NOTE | 2019-01-16 10:09 | NUR ---
LAB CALLED WITH TUANO THROUGH OF 21. INFORMED PHARMACY. PHARMACY SAID TO STOP VANCOMYCIN AND WILL ORDER RANDOM VANCO TROUGH.
[2019-01-16 10:30] LABS: ANION GAP 18.1 (8-16); CARBON DIOXIDE 20.6 mmol/L (21-32); CREATININE 0.8 mg/dL (0.7-1.3); POTASSIUM 3.7 mmol/L (3.5-5.1)
--- NOTE | 2019-01-16 11:30 | NUR ---
PT IN PAIN, AND WILL MEDICATE FOR PAIN OF 9/10.
[2019-01-16 12:00] VITALS: BP 129/71
[2019-01-16] MEDS: THERAHONEY GEL 42.5 GM TP SCH (13:00)
--- NOTE | 2019-01-16 15:00 | NUR ---
PT IN PAIN AND WILL MEDICATE. FAMILY IN THE ROOM. INFORMED FAMILY PT IS NONCOMPLIANT WITH PLAN OF CARE, FAMILY ENCOURAGE PT TO COMPLY, ASKED TO ORDER CHICKEN SOUP FOR PT. CALLED [facility] AND ORDER SOUP FOR PT, PER FAMILY REQUEST.
[2019-01-16 16:00] VITALS: BP 118/72
--- NOTE | 2019-01-16 18:43 | NUR ---
PT MOTHER AT BEDSIDE, SHE ENCOURAGE PT TO ACCEPT RELISTOR. ADMINISTER RELISTOR TO THE PT.
--- NOTE | 2019-01-16 19:10 | NUR ---
GAVE REPORT TO NIGHT NURSE FOR CONTINUITY OF CARE. PT IS STABLE, CALL LIGHT WITHIN REACH.
--- NOTE | 2019-01-16 19:11 | NUR ---
RECEIVED BEDSIDE REPORT FROM DAY RN. PT IS AAOX4. ON ROOM AIR. RESPIRATIONS ARE WITHIN NORMAL. LUNG SOUNDS ARE CLEAR. C/C CHRONIC WOUND ON SHAMEKA LEGS AND SACRAL. DRESSING CHANGE ARE DONE IN OR WITH DR CAICEDO. PT REFUSED PHYSICAL ASSESSMENT. PT WITH COLOSTOMY BAG. IV ON ROSEMARIE PICC LINE DOUBLE LUMEN. TPN INFUSING PER ORDERS. VANCO HELD D/T TROUGH PER RN. LAB WILL BE DRAWN AGAIN IN AM. PT IS ON MERREM & TOBRAMYCIN. ON CONTACT ISOLATION FOR MRSA OF WOUNDS. MOTHER IS AT BEDSIDE. POC DISCUSSED WITH PT AND MOTHER. CALL LIGHT IS WITHIN REACH. WILL ROUND FREQUENTLY.
[2019-01-16 20:00] VITALS: BP 119/75
[2019-01-16] MEDS: MULTIVITAMIN-12 10 ML in DEXTROSE 50% 760 ML, AMINO ACIDS 8.5% 760 ML, FAT EMULSION 20%... IV SCH ×4 (20:02)
--- NOTE | 2019-01-16 20:02 | NUR ---
LUIS MEDICATIONS GIVEN PER ORDERS. VITAL SIGNS ARE WITHIN NORMAL LIMITS. MOTHER AT BEDSIDE. CALL LIGHT IS WITHIN REACH.
--- NOTE | 2019-01-16 21:37 | NUR ---
ADMINISTERED PRN TORADOL FOR LEG AND BACK PAIN 11/18. PT TOLERATED WELL. MOTHER IS AT BEDSIDE. Addendum: 01/17/19 at 0005 by Geeta Avila RN ADMINISTERED PRN *DILAUDID FOR PAIN
--- NOTE | 2019-01-16 23:10 | NUR ---
SPOKE WITH [facility] FROM [facility]. CALL BACK # [phone]. PER [facility] THERE ARE BEDS AVAILABLE FOR MED/SURG AND TELE. INFORMED HIM PATIENT WILL REQUIRE TELE D/T [facility]. STATES THEY CAN TRANSFER TONIGHT JUST NEEDS LATEST REPORT FROM SURGEON. WILL SEND REPORT TO: FAX # [phone]. ALSO WILL NEED PHYSICIAN AVAILABLE TO GIVE REPORT TO ACCEPTING DOCTOR BUT STATES HE DOES NOT HAVE DOCTOR YET. INFORMED I WILL CHECK IF A DOCTOR AVAILABLE AND CALL HIM BACK.
--- NOTE | 2019-01-16 23:30 | NUR ---
SPOKE WITH [employer] AGAIN FROM [facility] [employer] #[phone]. PER [employer] HIS DRY CLIPPER TENDER STATES THEY WILL PRESENT [place] TOMORROW TO AM DOCTOR AND THEY WILL F/U WITH US TOMORROW 0800. INFORMED HIM THE TRANSFER TO HIGHER LEVEL OF CARE IS URGENT FOR POSSIBLE SKIN GRAFT AND IF THEY CAN HOLD A BED PER [facility] THEY CANNOT HOLD OR [facility] BED WILL STILL BE AVAILABLE TOMORROW. HE WILL F/U TOMORROW AND I WILL ENDORSE TO AM SHIFT TO ALSO F/U.
[2019-01-17] VITALS: BP 109/66
[2019-01-17] MEDS: TOBRAMYCIN 80 MG in DEXTROSE 5% 100 ML IV SCH ×2 (00:33→14:35)
[2019-01-17] MEDS: HYDROmorphone PFS 2 MG/ML SYR IVP PRN ×8 (00:33→22:40)
--- NOTE | 2019-01-17 00:33 | NUR ---
VITAL SIGNS ARE WITHIN NORMAL LIMITS. ADMINISTERED DILAUDID PRN FOR PAIN 10/19. PT TOLERATED WELL. ALL NEEDS MET. CALL LIGHT IS WITHIN REACH. WILL CONTINUE TO MONITOR.
--- NOTE | 2019-01-17 02:17 | NUR ---
PATIENT IS SLEEPING COMFORTABLY IN BED. NO S/S OF DISTRESS. CALL LIGHT IS WITHIN REACH.
--- NOTE | 2019-01-17 03:35 | NUR ---
ADMINISTERED DILAUDID PRN FOR BACK AND LEG PAIN 10/19. VITAL SIGNS ARE STABLE. ALL NEEDS MET AT THIS TIME. CALL LIGHT IS WITHIN REACH. WILL CONTINUE TO MONITOR.
[2019-01-17 04:00] VITALS: BP 116/72
[2019-01-17] MEDS: MEROPENEM 1,000 MG in NACL 0.9% 100 ML IV SCH ×3 (04:08→21:28)
--- NOTE | 2019-01-17 04:08 | NUR ---
MERREM NOW INFUSING PER ORDERS. ALL NEEDS MET CALL LIGHT IS WITHIN REACH
--- NOTE | 2019-01-17 06:37 | NUR ---
PRN DILAUDID GIVEN FOR LEG/BACK PAIN 10/19. PT TOLERATED WELL. CALL LIGHT IS WITHIN REACH
--- NOTE | 2019-01-17 07:05 | NUR ---
RECEIVED REPORT FROM NIGHT NURSE, FOR CONTINUITY OF CARE. PT HAS A RIGHT UPPER ARM PICC LINE, TPN AT 70MLS/HR, NS AT 5 ML/H TKO, PT IS STABLE, SAFETY MEASURES IN PLACE, CALL LIGHT WITHIN REACH.
--- NOTE | 2019-01-17 07:10 | NUR ---
GAVE BEDSIDE REPORT TO DAY RN. PT ENDORSED IN STABLE CONDITION
[2019-01-17 08:00] VITALS: BP 129/78
[2019-01-17] MEDS: METHYLNALTREXONE SUBQ SCH (09:00)
[2019-01-17] MEDS: ONDANSETRON 4 MG/2 ML VIAL IVP PRN (09:56)
--- NOTE | 2019-01-17 10:03 | NUR ---
MEDICATED PT WITH PRN DILAUDID FOR PAINOF 9/10 BACK/LEG PAIN, PT TOLERATED WELL. PT REFUSED RELISTOR. PT WAS ALSO MEDICATED WITH PRN ZOFRAN FOR VOMITING, PT WAS VOMITING. PT TOLERATED WELL. CALL LIGHT WITHIN REACH.
--- NOTE | 2019-01-17 10:48 | NUR ---
PT TPN WAS OFF, INFORMED IT HAD BEEN PEEPING AND TURNED OFF BY STUDENT NURSE. RESTARTED TPN AT 70ML/HR, PT TOLERATING IT WELL. PT IS STABLE AND NO SIGNS OF DISTRESS, CALL LIGHT WITHIN REACH.
--- NOTE | 2019-01-17 11:28 | NUR ---
called dr. lu's office to request pain medication for pt. LEFT A MESSAGE WITH PAN PUSHER FOR THE DOCTOR TO CALL BACK. WILL INFORM PT. Addendum: 01/17/19 at 1130 by Janette Bautista RN PT IS CRYING AND AGITATED. PT SAID HIS BACK HURTS REALLY BAD. PT'S MOM PHONE NURSE REQUESTING MEDICATION FOR HER SON.
--- NOTE | 2019-01-17 12:40 | NUR ---
ADMINISTER PRN DILAUDID FOR PAIN OF 9/10, BACK AND LEG PAIN. PT TOLERATED WELL
[2019-01-17] MEDS: THERAHONEY GEL 42.5 GM TP SCH (13:00)
[2019-01-17] MEDS ORDERED: VANCOMYCIN PER PHARMACY MC PRN (13:25)
--- NOTE | 2019-01-17 13:30 | NUR ---
PT REFUSED THERAHONEY, EDUCATE PT ON RISK OF REFUSAL AND PROLONGING HOSPITALIZATION. ADMINISTER ANTIBIOTICS, PT TOLERATING WELL.
--- NOTE | 2019-01-17 13:32 | NUR ---
[facility] CALLED AND STATED, THEY DID NOT HAVE A BED FOR PT. THEY STATED THEY WILL CALL BACK IN 4 HOURS.
--- NOTE | 2019-01-17 14:30 | NUR ---
ADMINISTER TOBRAMYCIN, PT TOLERATED WELL
--- NOTE | 2019-01-17 15:51 | NUR ---
01/17/19 RD FOLLOW UP COMPLETED PLEASE REFER TO NUTRITION ASSESSMENT UNDER CARE ACTIVITY FOR ESTIMATED NUTRITIONAL NEEDS. 1. CONTINUE REGULAR DIET W/ELECARE JR TID 2. ENCOURAGED PT AND PTS MOTHER TO RECORD DAILY FOOD INTAKE ON A FOOD LOG 3. ENCOURAGE FAMILY TO BRING SUPPLEMENTS AND FOOD FROM HOME IF APPROPRIATE PER MD 4. RECOMMEND INCREASING TPN INFUSION WHEN MEDICALLY APPROPRIATE TO MEET 75% OF ESTIMATED NEEDS 5. CONTINUE RODRIGUEZ BID 6. ENCOURAGE INCREASING PO INTAKE 7. RD WILL FOLLOW UP 2-3 DAYS, HIGH RISK ALEXEI JOHNSTON RD
[2019-01-17] MEDS: VANCOMYCIN 500 MG in DEXTROSE 5% 100 ML IV SCH (17:37)
--- NOTE | 2019-01-17 17:40 | NUR ---
TONIA KRUSE PT TOLERATED IT WELL.
--- NOTE | 2019-01-17 19:05 | NUR ---
ADMINISTER DILAUDID FOR BACK PAIN OF 9/10, PT TOLERATED WELL
--- NOTE | 2019-01-17 19:30 | NUR ---
RECEIVED PATIENT AWAKE AND ALERT IN BED. PT ON ROOM AIR. NO SOB. BED LOWERED WITH CALL LIGHT WITHIN REACH.
[2019-01-17 20:24] VITALS: BP 109/65
[2019-01-17] MEDS: MULTIVITAMIN-12 10 ML in DEXTROSE 50% 760 ML, AMINO ACIDS 8.5% 760 ML, FAT EMULSION 20%... IV SCH ×4 (21:27)
--- NOTE | 2019-01-17 21:39 | NUR ---
BLOOD SUGAR 69. NO S/S OF DISTRESS NOTED. PT GIVEN JUICE
[2019-01-17] MEDS: BLOOD GLUCOSE MONITORING 1 DEV DEV FS SCH (21:40)
[2019-01-17] MEDS ORDERED: DEXTROSE 50% 50 ML SYR IVP ONE (23:02)
--- NOTE | 2019-01-17 23:15 | NUR ---
BLOOD SUGAR 70. PATIENT AWAKE AND ALERT. DENIES DISCOMFORT. PT'S SISTER AT BEDSIDE
[2019-01-18] VITALS: BP 113/73
--- NOTE | 2019-01-18 01:00 | NUR ---
PT AWAKE IN BED, WATCHING ON HIS TABLET. NO S/S OF DISTRESS NOTED
[2019-01-18] MEDS: TOBRAMYCIN 80 MG in DEXTROSE 5% 100 ML IV SCH ×2 (01:50→13:25)
[2019-01-18] MEDS: HYDROmorphone PFS 2 MG/ML SYR IVP PRN ×6 (02:00→19:36)
[2019-01-18] MEDS: VANCOMYCIN 500 MG in DEXTROSE 5% 100 ML IV SCH (03:32)
[2019-01-18 05:24] VITALS: BP 112/68
--- NOTE | 2019-01-18 05:30 | NUR ---
PT REFUSING TO HAVE BLOOD DRAWN FROM HIS PICC. PT STATES THAT DRAWING BLOOD FOR HIS PICC LINE MAKES IT INFECTED. PT PROVIDED EDUCATION BUT PATIENT STILL REFUSES. PT STATES HE WILL RATHER HAVE VENIPUNCTURE TO HAVE HIS LABS DRAWN.
--- NOTE | 2019-01-18 07:20 | NUR ---
RECEIVED REPORT FROM NIGHT NURSE PATIENT IS IN BED, ASLEEP, ABLE TO WAKE. RESPIRATION EVEN AND UNLABORED. CALL LIGHT WITHIN REACH. NO S/S OF DISTRESS NOTED.
[2019-01-18 07:58] LABS: BASOPHILS # (AUTO) 0.1 K/uL (0.00-0.22); BASOPHILS % (AUTO) 1.2 % (0.0-2.0); EOSINOPHILS # (AUTO) 0.6 K/uL (0-0.4); HEMATOCRIT 24.5 % (36-52); HEMOGLOBIN 7.9 g/dL (12.0-18.0); LYMPHOCYTES # (AUTO) 1.8 K/uL (2.0-11.5); LYMPHOCYTES % (AUTO) 22.5 % (20.5-51.1); MEAN CORPUSCULAR HEMOGLOBIN 29 pg (27-31); MEAN CORPUSCULAR HGB CONC 32 g/dL (33-37); MEAN CORPUSCULAR VOLUME 88.2 fL (80-94); MONOCYTES # (AUTO) 0.8 K/uL (0.8-1.0); NEUTROPHILS # (AUTO) 4.7 K/uL (1.8-7.7); NEUTROPHILS % (AUTO) 58.3 % (42.2-75.2); PLATELET COUNT (AUTO) 489 K/uL (140-450); RED BLOOD CELL COUNT(AUTO) 2.78 MIL/uL (4.20-6.10); RED CELL DISTRIBUTION WIDTH 16.2 % (11.6-13.7); WHITE BLOOD COUNT (AUTO) 8.1 K/uL (4.8-10.8)
[2019-01-18 08:00] VITALS: BP 112/57
[2019-01-18 08:10] LABS: ANION GAP 13.8 (8-16); CARBON DIOXIDE 25.3 mmol/L (21-32); CREATININE 0.8 mg/dL (0.7-1.3); POTASSIUM 4.1 mmol/L (3.5-5.1)
[2019-01-18] MEDS: BLOOD GLUCOSE MONITORING 1 DEV DEV FS SCH ×2 (08:41→19:43)
--- NOTE | 2019-01-18 08:53 | NUR ---
PATIENT'S BLOOD SUGAR 83. PATIENT IS STILL NPO. PT IS ALERT, AWAKE AND ORIENTED X4. PT WATCHING TV. TPN INFUSING @ 70ML/HR AND TOLERATING WELL. CALL LIGHT WITHIN REACH.
--- NOTE | 2019-01-18 11:00 | NUR ---
PT IS AWAKE, ALERT AND ORIENTED X4. NO S/S OF DISTRESS NOTED. CALL LIGHT WITHIN REACH.
[2019-01-18 12:00] VITALS: BP 115/61
[2019-01-18] MEDS: THERAHONEY GEL 42.5 GM TP SCH (13:00)
--- NOTE | 2019-01-18 13:15 | NUR ---
CALLED TO PHARMACY IN REGARDS TO VANCOMYCIN PROTOCOL. PER LALI THEY WILL CALL THE UNIT FOR UPDATE OF VANCOMYCIN ORDER.
--- NOTE | 2019-01-18 14:45 | NUR ---
RECEIVED CALL FROM PHARMACY IN REGARDS TO VANCOMYCIN DOSING. PER PHARMACY VANCOMYCIN IS D/C TODAY, VANCO TROUGH TO BE DONE ON 01/20/19 IN AM.
--- NOTE | 2019-01-18 14:55 | NUR ---
PT IS OFF THE UNIT. PT PICKED UP BY THE OR NURSING STAFF.
[2019-01-18] MEDS ORDERED: MIDAZOLAM 2 MG/2 ML VIAL ONE (15:12)
[2019-01-18] MEDS ORDERED: fentaNYL 0.05 MG/ML VIAL ONE (15:13)
[2019-01-18] MEDS: LACTATED RINGERS 1,000 ML IV SCH ×2 (15:38→23:41)
[2019-01-18] MEDS ORDERED: HYDROmorphone 1 MG/ML AMP IVP PRN (15:40)
[2019-01-18] MEDS ORDERED: ONDANSETRON 4 MG/2 ML VIAL IVP PRN (15:40)
[2019-01-18] MEDS ORDERED: MEPERIDINE 25 MG/ML SYR IVP PRN (15:40)
[2019-01-18] MEDS ORDERED: diphenhydrAMINE 50 MG/ML VIAL IVP PRN (15:40)
--- NOTE | 2019-01-18 15:55 | NUR ---
[facility] CALLED, STATED STILL NO BED AVAILABILITY AT THIS TIME.
[2019-01-18 16:30] VITALS: BP 116/74
--- NOTE | 2019-01-18 16:30 | NUR ---
PT RETURNED FROM OR. PER OR NURSE, DRESSING CHANGED TO SACRAL, AND LOWER EXTREMITIES. VS STABLE.
--- NOTE | 2019-01-18 19:00 | NUR ---
PT IN STABLE CONDITION. WILL ENDORSE TO REHABILITATION WORKER NURSE.
--- NOTE | 2019-01-18 19:15 | NUR ---
RECEIVED BEDSIDE REPORT FROM DAY RN. PT IS AAOX4. ON ROOM AIR. RESPIRATIONS ARE WITHIN NORMAL. LUNG SOUNDS ARE CLEAR. C/C CHRONIC WOUND ON SHAMEKA LEGS AND SACRAL. DRESSING CHANGE ARE DONE IN OR WITH DR CAICEDO. DRESSING CHANGE DONE TODAY 01/18. PT REFUSED PHYSICAL ASSESSMENT. PT WITH COLOSTOMY BAG. IV ON ROSEMARIE PICC LINE DOUBLE LUMEN. TPN INFUSING PER ORDERS. LR INFUSING PER ORDERS. VANCO HELD D/T TROUGH PER RN. LAB WILL BE DRAWN AGAIN IN ON 01/20. PT IS ON TOBRAMYCIN. ON CONTACT ISOLATION FOR MDRO OF WOUNDS. MOTHER IS AT BEDSIDE. POC DISCUSSED WITH PT AND MOTHER. CALL LIGHT IS WITHIN REACH. WILL ROUND FREQUENTLY.
--- NOTE | 2019-01-18 19:36 | NUR ---
ADMINISTERED PRN DILAUDID FOR 10/10 LEG AND BACK PAIN. VSS. BLOOD SUGAR 95. MOTHER IS AT BEDSIDE. CALL LIGHT IS WITHIN REACH. WILL CONTINUE TO MONITOR.
[2019-01-18 20:00] VITALS: BP 117/89
[2019-01-18] MEDS: MULTIVITAMIN-12 10 ML in DEXTROSE 50% 760 ML, AMINO ACIDS 8.5% 760 ML, FAT EMULSION 20%... IV SCH ×4 (20:40)
--- NOTE | 2019-01-18 20:40 | NUR ---
HUNG NEW TPN BAG INFUSING PER ORDERS. PATIENT IS ASLEEP. RESPIRATIONS ARE EQUAL AND UNLABORED. MOTHER IS AT BEDSIDE.
--- NOTE | 2019-01-18 22:50 | NUR ---
ALBERT FROM [facility] CALLED REGARDING TRANSFER. STATES THERE ARE NO BEDS AVAILABLE.
--- NOTE | 2019-01-18 23:00 | NUR ---
PATIENT IS ASLEEP NO S/S OF DISTRESS. CHEST RISE AND FALL. ALL SAFETY MEASURES ARE IN PLACE. CALL LIGHT IS WITHIN REACH.
[2019-01-19] VITALS: BP 101/69
[2019-01-19] MEDS: TOBRAMYCIN 80 MG in DEXTROSE 5% 100 ML IV SCH ×2 (00:40→13:47)
[2019-01-19] MEDS: HYDROmorphone PFS 2 MG/ML SYR IVP PRN ×8 (00:47→23:05)
--- NOTE | 2019-01-19 00:47 | NUR ---
VITAL SIGNS ARE STABLE. 101/69 HR 117. ADMINISTERED PRN DILAUDID FOR LEG AND BACK PAIN 09/18. TOBRAMYCIN NOW INFUSING PER ORDERS.CALL LIGHT IS WITHIN REACH. WILL CONTINUE TO MONITOR.
--- NOTE | 2019-01-19 02:30 | NUR ---
PATIENT RESTING IN BED WATCHING TV. CALL LIGHT IS WITHIN REACH.
--- NOTE | 2019-01-19 03:47 | NUR ---
ADMINISTERED PRN DILAUDID FOR LEG AND BACK PAIN 10/19. VSS. HEATED SOUP UPON REQUEST. ALL NEEDS MET AT THIS TIME.
[2019-01-19 04:00] VITALS: BP 120/65
[2019-01-19 06:55] LABS: BASOPHILS # (AUTO) 0.1 K/uL (0.00-0.22); BASOPHILS % (AUTO) 0.7 % (0.0-2.0); EOSINOPHILS # (AUTO) 0.3 K/uL (0-0.4); EOSINOPHILS % (AUTO) 4.1 % (0.0-4.0); HEMATOCRIT 26.1 % (36-52); HEMOGLOBIN 8.5 g/dL (12.0-18.0); LYMPHOCYTES # (AUTO) 1.6 K/uL (2.0-11.5); LYMPHOCYTES % (AUTO) 20.7 % (20.5-51.1); MEAN CORPUSCULAR HEMOGLOBIN 29 pg (27-31); MEAN CORPUSCULAR HGB CONC 33 g/dL (33-37); MEAN CORPUSCULAR VOLUME 88.2 fL (80-94); MONOCYTES # (AUTO) 1.1 K/uL (0.8-1.0); MONOCYTES % (AUTO) 14.1 % (1.7-9.3); NEUTROPHILS # (AUTO) 4.8 K/uL (1.8-7.7); NEUTROPHILS % (AUTO) 60.4 % (42.2-75.2); PLATELET COUNT (AUTO) 455 K/uL (140-450); RED BLOOD CELL COUNT(AUTO) 2.96 MIL/uL (4.20-6.10); RED CELL DISTRIBUTION WIDTH 16.6 % (11.6-13.7)
--- NOTE | 2019-01-19 07:17 | NUR ---
GAVE BEDSIDE REPORT TO DAY RN. PT ENDORSED IN STABLE CONDITION.
--- NOTE | 2019-01-19 07:25 | NUR ---
BESIDE REPORT RECEIVED FROM NIGHT NURSE. PATIENT IS AWAKE AND ALERT X4. NO S/S OF DISTRESS NOTED. TPN INFUSING @ 70ML/HR AND TOLERATING WELL. CALL LIGHT WITHIN REACH.
[2019-01-19 08:00] VITALS: BP 106/55
[2019-01-19 08:22] LABS: ANION GAP 10.6 (8-16); CARBON DIOXIDE 28.7 mmol/L (21-32); CREATININE 0.7 mg/dL (0.7-1.3); POTASSIUM 4.3 mmol/L (3.5-5.1)
[2019-01-19 08:26] LABS: MAGNESIUM 1.9 mg/dL (1.8-2.4); PHOSPHORUS 5.1 mg/dL (2.5-4.9)
[2019-01-19] MEDS: BLOOD GLUCOSE MONITORING 1 DEV DEV FS SCH ×2 (09:00→20:25)
--- NOTE | 2019-01-19 09:00 | NUR ---
PHARMACY CALLED STATED VANCOMYCIN LEVEL 7.2. VANCO TO RESTART TODAY @ 1100, PER PHARMACY PROTOCOL.
[2019-01-19] MEDS: LACTATED RINGERS 1,000 ML IV SCH (09:06)
[2019-01-19] MEDS ORDERED: VANCOMYCIN 750 MG in DEXTROSE 5% 250 ML IV SCH (11:00)
--- NOTE | 2019-01-19 11:30 | NUR ---
VANCOMYCIN STARTED. PT IS STABLE, ALERT AND AWAKE. PT IS WATCHING TV. NO S/S OF DISTRESS NOTED.
[2019-01-19 12:00] VITALS: BP 105/59
[2019-01-19] MEDS: THERAHONEY GEL 42.5 GM TP SCH (13:00)
--- NOTE | 2019-01-19 13:30 | NUR ---
PT ALERT AND ORIENTED X4. PT IS WATCHING TV. NO S/S OF DISTRESS NOTED. CALL LIGHT WITHIN REACH.
[2019-01-19 16:00] VITALS: BP 116/69
--- NOTE | 2019-01-19 16:00 | NUR ---
PT IS ALERT AND ORIENTED X4. DENIES PAIN. NO S/S OF DISTRESS NOTED.
--- NOTE | 2019-01-19 18:45 | NUR ---
PT IS IN STABLE CONDITION. WILL ENDORSE TO NIGHT NURSE.
[2019-01-19 20:00] VITALS: BP 103/62
--- NOTE | 2019-01-19 20:00 | NUR ---
ASSUMED CARE. RECEIVED ALERT,ORIENTED. AFEBRILE, NOT IN ACUTE DISTRESS. COMPLAINED OF SEVERE BACK AND LEG PAINS. TPN INFUSING AT 70 ML/HR VIA RIGHT UPPER ARM PICC LINE. SAO2=97% ON RA. SINUS TACHYCARDIA @ 155/MINUTE ON THE MONITOR. OTHER VS ARE WITHIN NORMAL LIMITS. MOTHER AT BEDSIDE. WILL ADMINISTER PAIN MEDICATION.
--- NOTE | 2019-01-19 20:03 | NUR ---
PRN DILAUDID 2 MG IVP GIVEN ORDERED FOR PAIN.
[2019-01-19] MEDS: MULTIVITAMIN-12 10 ML in DEXTROSE 50% 760 ML, AMINO ACIDS 8.5% 760 ML, FAT EMULSION 20%... IV SCH ×4 (20:26)
--- NOTE | 2019-01-19 20:26 | NUR ---
FINGERSTICK BLOOD SUGAR CHECK=85. NO INSULIN COVERAGE NEEDED. NEW BAG OF TPN STARTED.
--- NOTE | 2019-01-19 23:05 | NUR ---
COMPLAINED OF WORSENING PAIN. DILAUDID 2 MG IVP ADMINISTERED REQUESTED.
[2019-01-19] MEDS ORDERED: ONDANSETRON 4 MG/2 ML VIAL ONE (23:19)
[2019-01-19] MEDS: ONDANSETRON 4 MG/2 ML VIAL IVP PRN (23:21)
--- NOTE | 2019-01-19 23:21 | NUR ---
COMPLAINED OF NAUSEA AND VOMITING OF CLEAR LIQUID. ZOFRAN 4 MG IVP GIVEN ORDERED FOR N/V.
--- NOTE | 2019-01-19 23:34 | NUR ---
I RECEIVED CALL FROM [facility] THAT THEY HAVE BED AND ASKED ME TO TALK TO AND HE HAS CALL THEM AND GIVE THEM SOME INFORMATION. THE # [phone] NAME OF PERSON ,EMILY.CALLED AND TALKED W/DR MILLER.HE SAID HE CAN NOT CALL NOW IN THEM WILL DO THAT.I EXPLAINED FOR HIM THAT THEY CAN NOT HOLD BED FOR AM BUT HE SAID ,HE CAN NOT DO TONIGHT.
[2019-01-20] VITALS: BP 91/63
--- NOTE | 2019-01-20 | NUR ---
AWAKE, NOT IN ANY KIND OF DISTRESS. NO PAIN OR DISCOMFORT NOTED AT THIS TIME. SIDE RAILS UP, CALL LIGHT WITHIN REACH. KEPT WARM AND COMFORTABLE. BP=91/63, OTHERWISE STABLE.
[2019-01-20] MEDS: HYDROmorphone PFS 2 MG/ML SYR IVP PRN ×6 (03:19→15:26)
--- NOTE | 2019-01-20 03:19 | NUR ---
COMPLAINED OF WORSENING PAIN. ANOTHER DOSE OF DILAUDID 2 MG IVP GIVEN.
[2019-01-20 04:00] VITALS: BP 106/67
--- NOTE | 2019-01-20 06:20 | NUR ---
PT AWAKE, ALERT ORIENTED X 4, PT IN STABLE CONDITION. WILL ENDORSE TO NEXT SHIFT Addendum: 01/21/19 at 0802 by Hermelinda Townsend RN CHAD NOTE
--- NOTE | 2019-01-20 06:35 | NUR ---
AGAIN MEDICATED WITH DILAUDID 2 MG IVP FOR PAIN=09/18.
--- NOTE | 2019-01-20 07:07 | NUR ---
ENDORSED CARE TO DEREK RESENDEZ.
--- NOTE | 2019-01-20 07:40 | NUR ---
Received report from night stocker nurse. Pt is in bed in stable condition. Call light in reach.
[2019-01-20 08:00] VITALS: BP 98/52
[2019-01-20] MEDS: BLOOD GLUCOSE MONITORING 1 DEV DEV FS SCH ×2 (09:30→21:43)
--- NOTE | 2019-01-20 10:19 | NUR ---
Pt is in bed in stable condition. Call light in reach.
--- NOTE | 2019-01-20 11:30 | NUR ---
restaurant shift supervisor nurse endorsed that pt will be transferred to [facility]. A note on the patients chart read that Dr Aguirre needs to call [facility]. Reported to Charge nurse. As per charge nurse Health Care Consultant will follow up. Called Health Care Consultant Nellie and left a voice mail to follow up.
[2019-01-20 12:00] VITALS: BP 95/64
[2019-01-20] MEDS: THERAHONEY GEL 42.5 GM TP SCH (13:00)
--- NOTE | 2019-01-20 13:00 | NUR ---
Pt is in bed in stable condition. Call light in reach.
--- NOTE | 2019-01-20 13:57 | NUR ---
Tejal from [facility], transfer dept, called to let know that there is no bed available for transfer.
--- NOTE | 2019-01-20 14:46 | NUR ---
01/20/19 RD FOLLOW UP COMPLETED PLEASE REFER TO NUTRITION ASSESSMENT UNDER CARE ACTIVITY FOR ESTIMATED NUTRITIONAL NEEDS. 1. CONTINUE REGULAR DIET W/ELECARE JR TID 2.ENCOURAGE FAMILY TO BRING SUPPLEMENTS AND FOOD FROM HOME IF APPROPRIATE PER MD 3. RECOMMEND INCREASING TPN INFUSION WHEN MEDICALLY APPROPRIATE TO MEET 75% OF ESTIMATED NEEDS 4. ENCOURAGE INCREASING PO INTAKE 5. RD WILL FOLLOW UP 2-3 DAYS, HIGH RISK AIXA DOYLE RD
[2019-01-20 16:00] VITALS: BP 98/52
--- NOTE | 2019-01-20 16:00 | NUR ---
Pt is in bed in stable condition. Family be bedside.Call light in reach.
[2019-01-20] MEDS ORDERED: HYDROmorphone 1 MG/ML AMP IVP SCH (17:45)
[2019-01-20] MEDS ORDERED: HYDROmorphone 1 MG/ML AMP IVP PRN (17:45)
--- NOTE | 2019-01-20 17:45 | NUR ---
Pt was complaining of extreme pain. Pain scale at 9/10. Called Dr Adam. Dr Adam ordered 2mg/ml PRN once. Order noted. TORB and verified. Medication administered.
--- NOTE | 2019-01-20 18:00 | NUR ---
Pt's mother wanted the fentanyl patch given again. Dr Adam was called. Fentanyl patch 0.15 mg q 72 hrs ordered. TORB and verified. Charge nurse notified.
--- NOTE | 2019-01-20 19:16 | NUR ---
RECEIVED BEDSIDE REPORT FROM AM SHIFT NURSE PT IS AAOX4. ON ROOM AIR. RESPIRATIONS ARE WITHIN NORMAL. LUNG SOUNDS ARE CLEAR. C/C CHRONIC WOUND ON [place]AMEKA LEGS AND SACRAL. DRESSING CHANGE ARE DONE IN OR PER PREVIOUS REPORT WITH DR CAICEDO. PT REFUSED PHYSICAL ASSESSMENT. PT WITH COLOSTOMY BAG. IV ON ROSEMARIE PICC LINE DOUBLE LUMEN. TPN INFUSING PER ORDERS. VANCO HELD D/T TROUGH PER RN. 01/19 READING WAS HIGH.ON CONTACT ISOLATION FOR MRSA OF WOUNDS. MOTHER IS AT BEDSIDE. POC DISCUSSED WITH PT AND MOTHER. CALL LIGHT IS WITHIN REACH. WILL ROUND FREQUENTLY. Addendum: 01/21/19 at 0753 by Hermelinda Townsend RN DELETE NOTE
--- NOTE | 2019-01-20 19:24 | NUR ---
Shift report given to rn night nurse. Pt is in bed in stable condition. Mother by bedside. Call light in reach.
--- NOTE | 2019-01-20 19:25 | NUR ---
RECEIVED BEDSIDE REPORT FROM AM SHIFT NURSE PT IS AAOX4. ON ROOM AIR. RESPIRATIONS ARE WITHIN NORMAL. LUNG SOUNDS ARE CLEAR. C/C CHRONIC WOUND ON [place]AMEKA LEGS AND SACRAL. DRESSING CHANGE ARE DONE IN OR PER PREVIOUS REPORT WITH DR CAICEDO. PT REFUSED PHYSICAL ASSESSMENT. PT WITH COLOSTOMY BAG. IV ON ROSEMARIE PICC LINE DOUBLE LUMEN. TPN INFUSING PER ORDERS. VANCO HELD D/T TROUGH PER RN. 01/19 READING WAS HIGH.ON CONTACT ISOLATION FOR MRSA OF WOUNDS. MOTHER IS AT BEDSIDE. POC DISCUSSED WITH PT AND MOTHER. CALL LIGHT IS WITHIN REACH. WILL ROUND FREQUENTLY.
[2019-01-20] MEDS: MULTIVITAMIN-12 10 ML in DEXTROSE 50% 760 ML, AMINO ACIDS 8.5% 760 ML, FAT EMULSION 20%... IV SCH ×4 (19:55)
[2019-01-20 20:00] VITALS: BP 104/62
[2019-01-20] MEDS: fentaNYL 0.075 MG/HR PATCH TD SCH (20:01)
[2019-01-20] MEDS: HYDROmorphone 1 MG/ML AMP IVP PRN ×2 (20:31→23:28)
--- NOTE | 2019-01-20 20:31 | NUR ---
PT CRYING OF PAIN; INFORMED HIM THAT FENTANYL PATCH AATCHED JUST NOW WAIT FOR A LITTLE WHILE, AND THAT HE ALREADY HAD HIS DILAUDID AT 1745. PT STILL CRYING THAT HE IS IN 10/10 PAIN. ADMINISTERED PAIN MEDS
[2019-01-20] MEDS ORDERED: ONDANSETRON 4 MG/2 ML VIAL ONE (20:35)
[2019-01-20] MEDS: ONDANSETRON 4 MG/2 ML VIAL IVP PRN (20:36)
--- NOTE | 2019-01-20 20:36 | NUR ---
PT HAD 1 EPISODE OF VOMITING. GIVEN ZOFRAN
--- NOTE | 2019-01-20 22:02 | NUR ---
[facility] FROM [facility] CALLED AND SAID BECAUSE THEY DON'T HAVE PLASTIC SURGEON SO THEY CAN NOT ACCEPT PT THERE.
--- NOTE | 2019-01-20 23:28 | NUR ---
PT AGAIN ASKING FOR PAIN MEDS SINCE PAIN IS 9/10 MEDICATED WILL REASSESS LATER
[2019-01-21] VITALS: BP 105/63
--- NOTE | 2019-01-21 01:00 | NUR ---
PT SLEEPING, NO COMPLAINTS AT THIS TIME, NO PAIN. NO SOB. PT TRYING TO EAT HIS FOOD IN SMALL FREQUENT AMOUNTS. ABLE TO TOLERATE W/O VOMITING.
[2019-01-21 04:00] VITALS: BP 107/63
[2019-01-21] MEDS: HYDROmorphone 1 MG/ML AMP IVP PRN ×5 (04:12→20:06)
--- NOTE | 2019-01-21 04:12 | NUR ---
PT AGAIN ASKING FOR PAIN MEDS SINCE PAIN IS 9/10 MEDICATED WILL REASSESS LATER
--- NOTE | 2019-01-21 06:20 | NUR ---
PT AWAKE, ALERT ORIENTED X 4, PT IN STABLE CONDITION. WILL ENDORSE TO NEXT SHIFT
--- NOTE | 2019-01-21 06:30 | NUR ---
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 PATIENT IS AWAKE AND ALERT, WATCHING TV. DENIES ANY PAIN. NO DISTRESS NOTED. RESPIRATIONS EVEN AND UNLABORED, ON ROOM AIR. ON TELE MONITORING. PICC LINE RIGHT UPPER ARM. TPN RUNNING 70 ML/HR. 0.9% NS RUNNING 10 ML/HR. BED IN LOW POSITION. CALL LIGHT WITHIN REACH. WILL CONTINUE TO MONITOR.
[2019-01-21 08:00] VITALS: BP 102/55
[2019-01-21] MEDS: ONDANSETRON 4 MG/2 ML VIAL IVP PRN ×2 (08:09→15:17)
--- NOTE | 2019-01-21 08:10 | NUR ---
GIVEN DILAUDID FOR PAIN LEVEL 8/10 AND ZOFRAN FOR N/V. EDUCATED PATIENT ON MEDICATIONS AND SIDE EFFECTS. PATIENT VERBALIZED UNDERSTANDING. WILL REASSESS PAIN AND N/V.
--- NOTE | 2019-01-21 09:00 | NUR ---
PATIENT REFUSED CVC DRESSING CHANGE. PATIENT STATED TO CHANGE DRESSING LATER
[2019-01-21] MEDS: BLOOD GLUCOSE MONITORING 1 DEV DEV FS SCH ×2 (09:44→21:00)
--- NOTE | 2019-01-21 10:15 | NUR ---
PATIENT IS WATCHING TV AT THIS TIME. NO DISTRESS NOTED. PAIN AT TOLERABLE LEVEL AT 2/10. WILL CONTINUE TO MONITOR.
--- NOTE | 2019-01-21 11:54 | NUR ---
GIVEN DILAUDID VIA IVP. EDUCATED PATIENT REGARDING MED AND SIDE EFFECTS. BP 104/59. HR 119, O2SAT 100%. WILL REASSESS PAIN.
[2019-01-21 12:00] VITALS: BP 104/59
[2019-01-21] MEDS: THERAHONEY GEL 42.5 GM TP SCH (13:00)
--- NOTE | 2019-01-21 13:25 | NUR ---
PATIENT IS SLEEPING AT THIS TIME. RESPIRATIONS EVEN AND UNLABORED. NO SIGNS OF DISTRESS NOTED. WILL CONTINUE TO MONITOR
--- NOTE | 2019-01-21 15:17 | NUR ---
PATIENT C/O PAIN AND N/V. GIVEN DILAUDID AND ZOFRAN. EDUCATED PATIENT ON MEDICATION AND SIDE EFFECTS. PATIENT VERBALIZED UNDERSTANDING. WILL REASSESS PATIENT. BED IN LOW POSITION. CALL LIGHT IS WITHIN REACH. Addendum: 01/21/19 at 1532 by Princess Cheryl Arriaga RN BP 111/69. HR 122. O2SAT 100%.
[2019-01-21 16:00] VITALS: BP 100/54
--- NOTE | 2019-01-21 16:27 | NUR ---
PATIENT IS STILL REFUSING CVC DRESSING CHANGE.
--- NOTE | 2019-01-21 19:10 | NUR ---
RECIEVED PT AAOX4 , NID - RA - O2 SAT WNL . WITH DX. OF CHRONIC MULTIPLE WOUNDS - ON CONTACT ISOLATION . ON TPN - TOLERATED WELL . WITH PICC LINE INTACT AND PATENT - ON SIGNS OF INFECTION NOTED ON SITE . WITH COLOSTOMY - SOFT ABD.. - USE URINAL - VOIDED FREELY . ON WOUND BED . MOTHER AT BEDSIDE. C/O PAIN - WILL MEDICATE ORDERED . PLAN OF CARE DISCUSSED AND VERBALIZE UNDERSTANDING - CALL LIGHT WITHIN REACH . ON SAFETY / FALL PRECAUTION PROTOCOL - BED ALARM ON .NO S/SX OF ACUTE DISTRESS NOTED AT THIS TIME . WILL CONT. TO MONITOR.
--- NOTE | 2019-01-21 19:10 | NUR ---
ENDORSED PATIENT TO NEWS SPECIALIST NURSE FOR CONTINUITY OF CARE. PATIENT IS IN STABLE CONDITION.
[2019-01-21 20:00] VITALS: BP 100/60
[2019-01-21] MEDS: MULTIVITAMIN-12 10 ML in DEXTROSE 50% 760 ML, AMINO ACIDS 8.5% 760 ML, FAT EMULSION 20%... IV SCH ×4 (20:15)
--- NOTE | 2019-01-21 22:00 | NUR ---
MADE ROUNDS . NO S/SX OF ACUTE DISTRESS NOTED AT THIS TIME . CALL LIGHT WITHIN REACH.
[2019-01-22] VITALS: BP 100/60
--- NOTE | 2019-01-22 | NUR ---
MADE ROUNDS . NO S/SX OF ACUTE DISTRESS NOTED AT THIS TIME . WILL CONT. TO MONITOR.
--- NOTE | 2019-01-22 02:00 | NUR ---
MADE ROUNDS. C/O PAIN - WILL MEDICATE ORDERED . BP 100/60 . 02 SAT WNL. - ON GRAIN MERCHANDISING MANAGER.
[2019-01-22] MEDS: HYDROmorphone 1 MG/ML AMP IVP PRN ×6 (02:29→22:45)
[2019-01-22 04:00] VITALS: BP 101/62
--- NOTE | 2019-01-22 04:00 | NUR ---
MADE ROUNDS - WATCHING TV - NO S/SX OF ACUTE DISTRESS NIOTED AT THIS TIME. CALL LIGHT WITHIN REACH.
--- NOTE | 2019-01-22 06:00 | NUR ---
SLEEPING - CHEST RISE AND FALL EQUALLY - CALLLIGHT WITHIN REACH . WILL CONT. TO MONITOR.
--- NOTE | 2019-01-22 07:22 | NUR ---
ENDORSED TO AM SHIFT WITH STABLE CONDITION.
--- NOTE | 2019-01-22 07:23 | NUR ---
Received report from pm nurse Ashlyn. Pt c/o 10/19 generalized body pain. Will administer pain med as ordered. Right upper arm PICC line with ongoing TPN @ 70ml/h & NS @ 10ml/h. Call light within reach.
[2019-01-22 08:00] VITALS: BP 91/59
[2019-01-22] MEDS: ONDANSETRON 4 MG/2 ML VIAL IVP PRN (08:22)
--- NOTE | 2019-01-22 08:22 | NUR ---
Pt with x1 episode of vomiting about 100ml clear yellowish emesis. Cont to c/o slight nausea. Zofran administered. HOB kept elevated at 30. Ice chips provided for comfort. Call light within reach.
[2019-01-22] MEDS: BLOOD GLUCOSE MONITORING 1 DEV DEV FS SCH ×2 (08:30→21:00)
--- NOTE | 2019-01-22 09:22 | NUR ---
Ranulfo reassessment: Pt verbalized feeling better. No nausea at this time. No further episode of vomiting.
--- NOTE | 2019-01-22 11:30 | NUR ---
Informed pt that his PICC dressing needs to be changed per protocol. Pt refused at this time & states he wants it done tonight. Explained risk of infection or complications to PICC line. Pt verbalized understanding but cont to insist to change dressing at night. Will notify pm nurse. ROSEMARIE PICC dressing clean, dry, & intact at this time, no redness/swelling/discharge noted.
[2019-01-22 12:00] VITALS: BP 104/66
[2019-01-22] MEDS: THERAHONEY GEL 42.5 GM TP SCH (13:00)
--- NOTE | 2019-01-22 13:00 | NUR ---
Pt refused wound assessment/treatment. Per pt, he is comfortable at this time & doesn't want to be moved. Verbalized understanding of risks of infection or further skin breakdown d/t non-compliance with tx regimen. Will cont to monitor.
[2019-01-22 16:00] VITALS: BP 100/65
--- NOTE | 2019-01-22 19:00 | NUR ---
Report given to pm nurse. Also notified of pt request to change PICC dressing at night.
--- NOTE | 2019-01-22 19:00 | NUR ---
RECEIVED PT FROM FROM KELLY CAPPS. PT ON TELEMETRY ST PT IS AAOX4 WITH ;MULTIPLES CHRONIC WOUNDS, ON TPN O;N RT PICC LINE ON RT UPPER ARM, COLOSTOMY A EMPTY, RELATIVES AT BED SIDE INITIAL ASSESSMENT DONE
[2019-01-22 20:00] VITALS: BP 99/56
[2019-01-22] MEDS: MULTIVITAMIN-12 10 ML in DEXTROSE 50% 760 ML, AMINO ACIDS 8.5% 760 ML, FAT EMULSION 20%... IV SCH ×4 (21:00)
--- NOTE | 2019-01-22 21:00 | NUR ---
BLOOD SUGAR TEST 82 NOT DISTRESS NOTED
--- NOTE | 2019-01-22 23:30 | NUR ---
PT SLEEPING WELL AFTER PAIN MEDIC GIVEN
[2019-01-23] VITALS: BP 90/60
[2019-01-23] MEDS: HYDROmorphone 1 MG/ML AMP IVP PRN ×6 (02:59→21:46)
--- NOTE | 2019-01-23 03:18 | NUR ---
PT REFUSED TO BE TURN AND AFTER PAIN MEDIC GIVEN PT IS RESTING QUIET ,
[2019-01-23 04:00] VITALS: BP 98/62
--- NOTE | 2019-01-23 04:52 | NUR ---
AFTER PAIN MEDICATION GIVEN PT SLEEPING WELL NOT DISTRESS NOTED , ON TELEMETRY ST
[2019-01-23 06:48] LABS: ALBUMIN 1.4 g/dL (3.4-5.0); ANION GAP 12.8 (8-16); CARBON DIOXIDE 27.5 mmol/L (21-32); CREATININE 0.9 mg/dL (0.7-1.3); MAGNESIUM 1.9 mg/dL (1.8-2.4); PHOSPHORUS 5.4 mg/dL (2.5-4.9); POTASSIUM 4.3 mmol/L (3.5-5.1); TOTAL BILIRUBIN 0.1 mg/dL (0.0-1.0)
--- NOTE | 2019-01-23 07:15 | NUR ---
PT WILL BE ENDORSED TO DAY SHIFT FOR CONTINUE OF CARE
--- NOTE | 2019-01-23 07:16 | NUR ---
Received report from PM nurse. Patient resting in bed. No signs of distress. Right upper PICC line running TPN at 70 mL/hr.
[2019-01-23 09:00] VITALS: BP 106/70
--- NOTE | 2019-01-23 09:22 | NUR ---
Ranulfo reassessment: Pt verbalized feeling better. No nausea at this time. No further episode of vomiting. Addendum: 01/23/19 at 1020 by Karlie Carbajal RN Wrong date input. Omit above note.
--- NOTE | 2019-01-23 09:22 | NUR ---
Ranulfo reassessment: Pt verbalized feeling better. No nausea at this time. No further episode of vomiting. Addendum: 01/23/19 at 1019 by Karlie Carbajal RN Wrong date input. Omit above note.
[2019-01-23] MEDS: BLOOD GLUCOSE MONITORING 1 DEV DEV FS SCH ×2 (09:24→21:51)
--- NOTE | 2019-01-23 09:32 | NUR ---
01/23/19 RD FOLLOW UP COMPLETED PLEASE REFER TO NUTRITION PROGRESS NOTE UNDER CARE ACTIVITY FOR ESTIMATED NUTRITION NEEDS. RD RECOMMENDATIONS: 1. CONTINUE REGULAR DIET W/ANDRE DUTTON TID. 2. ENCOURAGE FAMILY TO BRING SUPPLEMENTS AND FOOD FROM HOME IF APPROPRIATE PER MD. 3. CONSIDER INCREASING TPN INFUSION WHEN MEDICALLY APPROPRIATE TO D20%, AA5%, 10%IL AT 70 ML/HR TO PROVIDE 1742 KCAL, 84 GM PROTEIN, GIR 3.81. THIS WILL MEET 67% ESTIMATED KCAL NEEDS AND 75% ESTIMATED PROTEIN NEEDS. 4. ENCOURAGE INCREASING PO INTAKE. 5. RD WILL FOLLOW UP 2-3 DAYS, HIGH RISK. ANGELA COLE, MS, RDN
[2019-01-23 12:00] VITALS: BP 106/58
[2019-01-23] MEDS: THERAHONEY GEL 42.5 GM TP SCH (13:00)
[2019-01-23 16:00] VITALS: BP 102/65
--- NOTE | 2019-01-23 19:00 | NUR ---
RECEIVED PT KOBI MENDOZA RN PT IS AAOX4 ON BEDREST ON TELEMETRY ST, PICC LINE ON RT UA INFUSING WELL TPN, PT COVERED MULTIPLES CHRONIC UWOUND COLOSTOMY BAG EMPTY. PT'S MOM AT BED SIDE
[2019-01-23 20:00] VITALS: BP 101/62
[2019-01-23] MEDS: MULTIVITAMIN-12 10 ML in DEXTROSE 50% 760 ML, AMINO ACIDS 8.5% 760 ML, FAT EMULSION 20%... IV SCH ×4 (20:18)
[2019-01-23] MEDS: fentaNYL 0.075 MG/HR PATCH TD SCH (20:20)
--- NOTE | 2019-01-23 21:30 | NUR ---
BLOOD SUGARTEST 59 PT DRINKING JUICE AT THIS TIME NOT DISTRESS NOTED
[2019-01-24] VITALS: BP 108/74
[2019-01-24] MEDS: HYDROmorphone 1 MG/ML AMP IVP PRN ×3 (01:25→09:58)
--- NOTE | 2019-01-24 02:00 | NUR ---
PT SLEEPING WELL AFTER PAIN MEDIC GIVEN NOT DISTRESS NOTED
[2019-01-24 04:00] VITALS: BP 106/74
--- NOTE | 2019-01-24 05:00 | NUR ---
PT REFUSED TO BE TURNED , PT REFUSED TO BE LINEN CHANGED ON TELEMETRY ST
[2019-01-24] MEDS: ONDANSETRON 4 MG/2 ML VIAL IVP PRN ×2 (06:54→16:46)
--- NOTE | 2019-01-24 07:30 | NUR ---
RECEIVED BEDSIDE REPORT FROM NIGHTSHIFT NURSE. PT ASLEEP IN BED. RESPONSIBLE TO VERBAL AND TACTILE STIMULI. RESPIRATIONS EVEN AND UNLABORED WITH NO SOB OR RESPIRATORY DISTRESS. SKIN WARM AND DRY TO TOUCH. DOUBLE LUMEN PICC IN RIGHT UPPER ARM CLEAN, DRY, ANT INTACT. NO COMPLICATIONS AT THIS TIME. SAFETY MEASURES IN PLACE.
[2019-01-24 08:00] VITALS: BP 109/65
[2019-01-24] MEDS: BLOOD GLUCOSE MONITORING 1 DEV DEV FS SCH ×2 (09:00→21:09)
--- NOTE | 2019-01-24 09:58 | NUR ---
PT CALLED AND COMPLAINED OF PAIN BEING 8/10. ADMINISTERED PRN PAIN MEDICATION PRESCRIBED PER MD ORDER. PT TOLERATED WELL. MEDICATION EDUCATION PERFORMED. PT VERBALIZED UNDERSTANDING AND COULD TEACH BACK. NO COMPLICATIONS AT THIS TIME. SAFETY MEASURES IN PLACE. WILL CONTINUE TO MONITOR.
--- NOTE | 2019-01-24 10:30 | NUR ---
PT RESTING IN BED UPON ARRIVAL. REFUSED TO BE REPOSITION. PT STATED, "I WANT TO BE LEFT ALONE.'. RESPIRATIONS EVEN AND UNLABORED WITH NO SOB OR RESPIRATORY DISTRESS. SKIN WARM AND DRY. ABLE TO MAKE NEEDS KNOWN. WILL CONTINUE TO MONITOR.
--- NOTE | 2019-01-24 11:17 | NUR ---
PT ON THE PHONE TO MOM AND RESTING IN BED. RESPIRATIONS EVEN AND UNLABORED WITH NO SOB OR RESPIRATORY DISTRESS. SKIN WARM AND DRY TO TOUCH. NO COMPLAINTS OR CONCERNS AT THIS TIME. SAFETY MEASURES IN PLACE
[2019-01-24 12:00] VITALS: BP 120/50
[2019-01-24] MEDS ORDERED: TPN PER PHARMACY MC PRN (12:15)
[2019-01-24] MEDS: HYDROmorphone PFS 2 MG/ML SYR IVP PRN ×4 (13:00→22:59)
[2019-01-24] MEDS: THERAHONEY GEL 42.5 GM TP SCH (13:00)
--- NOTE | 2019-01-24 13:00 | NUR ---
PATIENT CALLED AND COMPLAINED OF PAIN BEING 8/10. PRN PAIN MEDICATION ADMINISTERED PRESCRIBED PER MD ORDER. PT TOLERATED WELL. MEDICATION EDUCATION PERFORMED. SAFETY MEASURES IN PLACE. WILL CONTINUE TO MONITOR.
--- NOTE | 2019-01-24 13:00 | NUR ---
PT CALLED AND COMPLAINED OF SEVERE 8/10 PAIN. PRN PAIN MEDICATION ADMINISTERED PRESCRIBED PER MD ORDER. PT TOLERATED WELL. MEDICATION EDUCATION PERFORMED. PT ABLE TO VERBALIZE UNDERSTANDING AND TEACH BACK. RESPIRATIONS EVEN AND UNLABORED WITH NO SOB OR RESPIRATORY DISTRESS.
--- NOTE | 2019-01-24 14:15 | NUR ---
PT IN BED WITH MOTHER AT BEDSIDE. ABLE TO MAKE NEEDS KNOWN. REFUSED TO TURN AND HAVE COLOSTOMY EMPTIED OUT. RESPIRATIONS EVEN AND UNLABORED WITH NO SOB OR RESPIRATORY DISTRESS. SAFETY MEASURES IN PLACE
[2019-01-24 16:00] VITALS: BP 125/60
--- NOTE | 2019-01-24 16:39 | NUR ---
PT CALLED AND COMPLAINED OF SEVERE 8/10 PAIN. PRN PAIN MEDICATION ADMINISTERED PRESCRIBED PER MD ORDER. PT TOLERATED WELL. MEDICATION EDUCATION PERFORMED. PT ABLE TO VERBALIZE UNDERSTANDING AND TEACH BACK. RESPIRATIONS EVEN AND UNLABORED WITH NO SOB OR RESPIRATORY DISTRESS. SAFETY MEASURES IN PLACE
--- NOTE | 2019-01-24 17:45 | NUR ---
HOURLY ROUNDS. PT ASLEEP IN BED. RESPONSIVE TO VERBAL AND TACTILE STIMULI. RESPIRATIONS EVEN AND UNLABORED WITH NO SOB OR RESPIRATORY DISTRESS. SKIN WARM AND DRY TO TOUCH. NO COMPLAINTS OR CONCERNS AT THIS TIME. SAFETY MEASURES IN PLACE.
--- NOTE | 2019-01-24 19:10 | NUR ---
ENDORSED TO NIGHTSHIFT NURSE. PT RESTING IN BED WITH MOTHER AT BEDSIDE. RESPIRATIONS EVEN AND UNLABORED WITH NO SOB OR RESPIRATORY DISTRESS. SKIN WARM AND DRY TO TOUCH. NO COMPLAINTS OR CONCERNS AT THIS TIME. SAFETY MEASURES IN PLACE. PT IS STABLE
--- NOTE | 2019-01-24 19:11 | NUR ---
RECEIVED BEDSIDE REPORT FROM DAY SHIFT NURSE. PT AAOX4 , PT ON CONTACT ISOLATION.WITH PICC LINE INTACT AND PATENT - WITH COLOSTOMY. USE URINAL - VOIDED FREELY . ON WOUND BED . MOTHER AT BEDSIDE. C/O PAIN - WILL MEDICATE ORDERED . PLAN OF CARE DISCUSSED AND VERBALIZE UNDERSTANDING. PT REFUSED TO ASSESS WOUND D/T PAIN. - CALL LIGHT WITHIN REACH . ON SAFETY / FALL PRECAUTION PROTOCOL NO S/SX OF ACUTE DISTRESS NOTED AT THIS TIME . WILL CONT. TO MONITOR.
[2019-01-24 20:00] VITALS: BP 121/74
--- NOTE | 2019-01-24 20:04 | NUR ---
PT C/O 10/19 PAIN, GIVEN DILAUDID MD ORDERED. PT TOLERATED WELL.
[2019-01-24] MEDS: MULTIVITAMIN-12 10 ML in DEXTROSE 50% 760 ML, AMINO ACIDS 8.5% 760 ML, FAT EMULSION 20%... IV SCH ×4 (20:20)
--- NOTE | 2019-01-24 20:20 | NUR ---
GIVEN TPN BUT HAVING PROBLEM WITH TPN TUBE, NOT GOING THROUGH. WILL FIGURE OUT AND FIX IT.
--- NOTE | 2019-01-24 20:45 | NUR ---
FIXED TUBING ISSUE, RUNNING TPN, PT TOLERATED WELL.
--- NOTE | 2019-01-24 22:59 | NUR ---
PT C/O 10/19 PAIN, GIVEN DILAUDID MD ORDERED. PT TOLERATED WELL.
[2019-01-25] VITALS: BP 120/71
[2019-01-25] MEDS: HYDROmorphone PFS 2 MG/ML SYR IVP PRN ×7 (02:00→23:39)
--- NOTE | 2019-01-25 02:00 | NUR ---
PT C/O 10/19 PAIN, GIVEN DILAUDID MD ORDERED. PT TOLERATED WELL.
[2019-01-25 04:00] VITALS: BP 138/69
--- NOTE | 2019-01-25 04:00 | NUR ---
VS CHECKED, WITHIN PT'S BASELINE. WILL CONTINUE TO MONITOR.
--- NOTE | 2019-01-25 05:00 | NUR ---
PT C/O 10/19 PAIN, GIVEN DILAUDID MD ORDERED. PT TOLERATED WELL.
[2019-01-25 06:43] LABS: BASOPHILS # (AUTO) 0.1 K/uL (0.00-0.22); BASOPHILS % (AUTO) 1.3 % (0.0-2.0); EOSINOPHILS # (AUTO) 0.3 K/uL (0-0.4); EOSINOPHILS % (AUTO) 3.1 % (0.0-4.0); HEMATOCRIT 27.9 % (36-52); HEMOGLOBIN 8.9 g/dL (12.0-18.0); LYMPHOCYTES # (AUTO) 1.3 K/uL (2.0-11.5); LYMPHOCYTES % (AUTO) 13.9 % (20.5-51.1); MEAN CORPUSCULAR HEMOGLOBIN 28 pg (27-31); MEAN CORPUSCULAR HGB CONC 32 g/dL (33-37); MEAN CORPUSCULAR VOLUME 88.2 fL (80-94); MONOCYTES # (AUTO) 0.9 K/uL (0.8-1.0); MONOCYTES % (AUTO) 10.1 % (1.7-9.3); NEUTROPHILS # (AUTO) 6.5 K/uL (1.8-7.7); NEUTROPHILS % (AUTO) 71.6 % (42.2-75.2); PLATELET COUNT (AUTO) 522 K/uL (140-450); RED BLOOD CELL COUNT(AUTO) 3.17 MIL/uL (4.20-6.10); RED CELL DISTRIBUTION WIDTH 16.3 % (11.6-13.7); WHITE BLOOD COUNT (AUTO) 9.1 K/uL (4.8-10.8)
--- NOTE | 2019-01-25 07:15 | NUR ---
RECEIVED REPORT FROM NIGHT NURSE. PT IS ALERT AND AWAKE. ORIENTED X4. NO S/S OF DISTRESS NOTED. BED IN LOW POSITION. PICC LINE INTACT TO RIGHT UPPER ARM WITH TPN INFUSING AT 70ML/HR. TOLERATING WELL. CALL LIGHT WITHIN REACH.
[2019-01-25 08:00] VITALS: BP 117/82
[2019-01-25] MEDS: ONDANSETRON 4 MG/2 ML VIAL IVP PRN ×2 (08:30→21:22)
[2019-01-25] MEDS: BLOOD GLUCOSE MONITORING 1 DEV DEV FS SCH ×2 (08:39→20:18)
--- NOTE | 2019-01-25 09:30 | NUR ---
PT ALERT AND ORIENTED X4. REPORTS RELIEVED PAIN SINCE DILAUDID WAS ADMINISTERED. PT ABLE TO MAKE NEEDS KNOWN. ENCOURAGED TO BE REPOSITIONED, PT REFUSED. NO S/S OF DISTRESS NOTED. CALL LIGHT WITHIN REACH.
--- NOTE | 2019-01-25 11:30 | NUR ---
PT IS ALERT AND ORIENTED X4, VERBALLY RESPONSIVE. PT IS WATCHING TV. NO S/S OF DISTRESS NOTED.
[2019-01-25 12:00] VITALS: BP 111/65
[2019-01-25] MEDS: THERAHONEY GEL 42.5 GM TP SCH (13:00)
--- NOTE | 2019-01-25 13:00 | NUR ---
CONFIRMED WITH DR. CAICEDO. WOUND DRESSING CHANGE WILL BE DONE TOMORROW. PT WILL BE NPO AFTER MIDNIGHT.
--- NOTE | 2019-01-25 14:15 | NUR ---
PT REPORTS SEVERE PAIN, MEDICATED WITH DILAUDID 2MG IVP. PATIENT IS ALERT AND VERBALLY RESPONSIVE. NO S/S OF DISTRESS NOTED. TPN CONT. @70ML/HR, TOLERATING WELL. CALL LIGHT WITHIN REACH.
[2019-01-25 16:00] VITALS: BP 116/68
--- NOTE | 2019-01-25 16:26 | NUR ---
PATIENT IS ALERT AND VERBALLY RESPONSIVE. PT IS WATCHING TV. NO S/S OF DISTRESS NOTED. TPN CONT. @70ML/HR, TOLERATING WELL. CALL LIGHT WITHIN REACH.
--- NOTE | 2019-01-25 18:33 | NUR ---
PATIENT IS ALERT AND VERBALLY RESPONSIVE. PT IS WATCHING TV. MOTHER AT BEDSIDE. NO S/S OF DISTRESS NOTED. TPN CONT. @70ML/HR VIA PICC LINE TO RIGHT UPPER ARM. PICC LINE DRESSING INTACT AND PATENT. TOLERATING WELL. CALL LIGHT WITHIN REACH. PT IN STABLE CONDITION. WILL ENDORSE TO SHAPER SET UP OPERATOR FOR CONTINUITY OF CARE.
--- NOTE | 2019-01-25 19:05 | NUR ---
RECEIVED REPORT FROM AM SHIFT NURSE. PATIENT ALERT AND ORIENTED X4. NO APPARENT DISTRESS NOTED. WITH PICC LINE ON RIGHT UPPER ARM DOUBLE LUMEN RUNNING TPN AT 70ML/HR. INTRODUCED SELF AND UPDATED BOARD. WILL CONTINUE TO MONITOR.
[2019-01-25 20:00] VITALS: BP 114/56
[2019-01-25] MEDS: MULTIVITAMIN-12 10 ML in DEXTROSE 50% 760 ML, AMINO ACIDS 8.5% 760 ML, FAT EMULSION 20%... IV SCH ×4 (20:07)
--- NOTE | 2019-01-25 21:00 | NUR ---
ROUNDS DONE. PATIENT AWAKE AT THIS TIME, WATCHING TV. BED ON LOW POSITION. WILL CONTINUE TO MONITOR.
--- NOTE | 2019-01-25 23:00 | NUR ---
PATIENT AWAKE IN BED, WATCHING TV. NO APPARENT DISTRESS NOTED. WILL CONTINUE TO MONITOR.
[2019-01-26] VITALS: BP 111/68
--- NOTE | 2019-01-26 00:55 | NUR ---
PATIENT RESTING IN BED. NO APPARENT DISTRESS NOTED. BED ON LOW POSITION. REFUSED TURNING AND REPOSITIONING AND ASSESSMENT OF WOUNDS. WILL CONTINUE TO MONITOR.
[2019-01-26] MEDS: HYDROmorphone PFS 2 MG/ML SYR IVP PRN ×4 (02:42→19:38)
[2019-01-26] MEDS: ONDANSETRON 4 MG/2 ML VIAL IVP PRN ×2 (02:49→06:50)
--- NOTE | 2019-01-26 02:55 | NUR ---
PATIENT WITH C/O 7/10 ACHING BACK PAIN. MEDICATED PER PAIN SCALE. ALSO WITH C/O NAUSEA/VOMITING. PRN ZOFRAN GIVEN ORDERED. WILL CONTINUE TO MONITOR.
[2019-01-26 04:00] VITALS: BP 107/63
--- NOTE | 2019-01-26 04:50 | NUR ---
PATIENT AWAKE IN BED. NO APPARENT DISTRESS NOTED. VISIBLE CHEST RISE AND FALL NOTED. WILL CONTINUE TO MONITOR.
--- NOTE | 2019-01-26 06:34 | NUR ---
PATIENT AWAKE IN BED, WATCHING ON CELLPHONE. NO APPARENT DISTRESS NOTED. WILL CONTINUE TO MONITOR.
--- NOTE | 2019-01-26 07:10 | NUR ---
ENDORSED TO AM SHIFT FOR CONTINUITY OF CARE.
--- NOTE | 2019-01-26 07:30 | NUR ---
Shift report received from shift superintendent caustic cresylate nurse. Pt is in bed in stable condition. Call light in reach.
[2019-01-26 08:00] VITALS: BP 103/64
[2019-01-26] MEDS: BLOOD GLUCOSE MONITORING 1 DEV DEV FS SCH ×2 (09:00→19:46)
--- NOTE | 2019-01-26 09:00 | NUR ---
Pt is taken to OR. Pt is not on unit.
[2019-01-26] MEDS ORDERED: METOPROLOL 5 MG/5 ML VIAL ONE (09:27)
[2019-01-26] MEDS ORDERED: KETAMINE 500 MG/5 ML VIAL ONE (09:32)
[2019-01-26] MEDS ORDERED: MIDAZOLAM 2 MG/2 ML VIAL ONE (09:32)
[2019-01-26] MEDS: HYDROmorphone 1 MG/ML AMP IVP PRN ×4 (10:40→11:10)
[2019-01-26] MEDS ORDERED: BLOOD GLUCOSE MONITORING 1 DEV DEV FS SCH (10:50)
[2019-01-26] MEDS ORDERED: ONDANSETRON 4 MG/2 ML VIAL IVP PRN (10:50)
--- NOTE | 2019-01-26 11:25 | NUR ---
Pt is back on the unit. Jailyn OR nurse was with patient in room. Pt's vital signs taken. Vital signs within normal range. Pt is resting in bed. Call light in reach.
[2019-01-26 12:00] VITALS: BP 131/79
[2019-01-26] MEDS: THERAHONEY GEL 42.5 GM TP SCH (13:00)
--- NOTE | 2019-01-26 13:00 | NUR ---
Pt is in bed in stable condition. Vital signs within normal values.Call light in reach.
[2019-01-26 16:00] VITALS: BP 123/71
--- NOTE | 2019-01-26 16:07 | NUR ---
01/26/19 RD FOLLOW UP COMPLETED PLEASE REFER TO NUTRITION ASSESSMENT UNDER CARE ACTIVITY FOR ESTIMATED NUTRITIONAL NEEDS. 1. CONTINUE REGULAR DIET W/ELECARE JR TID 2. ENCOURAGED PT AND PTS MOTHER TO RECORD DAILY FOOD INTAKE ON A FOOD LOG 3. ENCOURAGE FAMILY TO BRING SUPPLEMENTS AND FOOD FROM HOME IF APPROPRIATE PER MD 4. RECOMMEND INCREASING TPN INFUSION WHEN MEDICALLY APPROPRIATE TO MEET75% OF ESTIMATED NEEDS 5. ENCOURAGE INCREASING PO INTAKE 6. RD WILL FOLLOW UP 2-3 DAYS, HIGH RISK ALEXEI JOHNSTON RD
--- NOTE | 2019-01-26 18:00 | NUR ---
Pt is in bed in stable condition. Mother by bedside. Call light in reach.
--- NOTE | 2019-01-26 19:30 | NUR ---
Shift report given to fleet driver nurse. Pt is in bed in stable condition. Mother by bedside. Call light in reach.
--- NOTE | 2019-01-26 19:31 | NUR ---
REPORT RECEIVED FROM AM NURSE AT BEDSIDE. PT IN STABLE CONDITION. AAOX4. INTRODUCED SELF TO PT. BOARD UPDATED. PT HAS COMPLAINTS OF PAIN. WILL MEDICATE. NO SOB. AFEBRILE. PT IS BEDBOUND. PT HAS COLOSTOMY. IV SITE R UA PICC DOUBLE LUMEN RUNNING TPN@70ML/HR PATENT AND INTACT. SKIN WARM, DRY, AND NOT INTACT DUE TO MULTIPLE WOUNDS. SEE WOUND ASSESSMENT. BED LOCKED IN LOW POSITION. CALL CONN WITHIN REACH. SAFETY PRECAUTION IN PLACE. ALL NEEDS MET AT THIS TIME.
[2019-01-26] MEDS: MULTIVITAMIN-12 10 ML in DEXTROSE 50% 760 ML, AMINO ACIDS 8.5% 760 ML, FAT EMULSION 20%... IV SCH ×4 (19:38)
--- NOTE | 2019-01-26 19:38 | NUR ---
DILAUDID GIVEN FOR 10/10 GENERALIZED PAIN. TPN HUNG AND RUNNING. BS 79. NO INSULIN COVERAGE REQUIRED. DURAGESIC PATCHES D/C AND REAPPLIED TO R AND LEFT SHOULDERS. PT TOLERATED WELL.
[2019-01-26] MEDS: fentaNYL 0.075 MG/HR PATCH TD SCH (19:50)
[2019-01-26 20:00] VITALS: BP 119/69
--- NOTE | 2019-01-26 21:00 | NUR ---
PT IN BED WATCHING TV. NO S/S OF DISTRESS NOTED. WILL CONTINUE TO MONITOR.
--- NOTE | 2019-01-26 23:25 | NUR ---
PT SLEEPING COMFORTABLY BUT AROUSABLE. NO S/S OF DISTRESS NOTED. WILL CONTINUE TO MONITOR.
[2019-01-27] VITALS: BP 114/76
[2019-01-27] MEDS: HYDROmorphone PFS 2 MG/ML SYR IVP PRN ×7 (00:06→20:55)
--- NOTE | 2019-01-27 00:06 | NUR ---
DILAUDID GIVEN FOR 10/10 GENERALIZED PAIN. PT TOLERATED WELL.
--- NOTE | 2019-01-27 01:45 | NUR ---
PT SLEEPING COMFORTABLY BUT AROUSABLE. NO S/S OF DISTRESS NOTED. NO COMPLAINTS OF PAIN. NO SOB. AFEBRILE. WILL CONTINUE TO MONITOR.
--- NOTE | 2019-01-27 02:35 | NUR ---
REPORT GIVEN TO LOPEZ CAPPS. PT IN STABLE CONDITION.
--- NOTE | 2019-01-27 02:36 | NUR ---
RECEIVED PT FROM RNMUNIRA FOR CONTINUOUS CARE. PT IN STABLE CONDITION.
[2019-01-27 04:00] VITALS: BP 123/64
--- NOTE | 2019-01-27 04:00 | NUR ---
VS CHECKED, WITHIN PT'S BASELINE, PT C/O 9/10 PAIN, GIVEN DILAUDID MD ORDERED. PT TOLERATED WELL.
--- NOTE | 2019-01-27 06:56 | NUR ---
PT C/O 10/19 PAIN, GIVEN DILAUDID MD ORDERED. PT TOLERATED WELL.
--- NOTE | 2019-01-27 07:24 | NUR ---
PATIENT REPORT RECEIVED FROM DOUGHNUT MACHINE OPERATOR NURSE FOR CONTINUATION OF CARE. PATIENT IS RESTING IN BED, BED IN LOW POSITION, DENIES PAIN. WILL CONTINUE TO MONITOR.
[2019-01-27 07:25] LABS: ANION GAP 12.9 (8-16); CARBON DIOXIDE 25.5 mmol/L (21-32); CREATININE 0.9 mg/dL (0.7-1.3); POTASSIUM 4.4 mmol/L (3.5-5.1)
[2019-01-27 08:00] VITALS: BP 127/72
[2019-01-27] MEDS: BLOOD GLUCOSE MONITORING 1 DEV DEV FS SCH ×2 (09:35→20:58)
--- NOTE | 2019-01-27 09:50 | NUR ---
PATIENT IS RESTING BED, MEDICATED FOR SEVERE PAIN WITH DILAUDID. TOLERATED WELL. OBSERVED CHEST RISE AND FALL. EMPTIED URINAL, CLEAR, YELLOW URINE ABSENT OF MALODOUR. BED IN LOW POSITION, CALL LIGHT ON AND WITHIN REACH. WILL CONTINUE TO MONITOR.
[2019-01-27 12:00] VITALS: BP 122/70
--- NOTE | 2019-01-27 12:00 | NUR ---
PATIENT IS RESTING IN BED, NO SIGNS OF DISTRESS NOTED, OBSERVED CHEST RISE AND FALL. REQUESTS PAIN MEDICATIONS, NEXT DOSE DUE AT 1300. BED IN LOW POSITION, CALL LIGHT ON AND WITHIN REACH, WILL CONTINUE TO MONITOR.
[2019-01-27] MEDS: THERAHONEY GEL 42.5 GM TP SCH (13:00)
--- NOTE | 2019-01-27 14:30 | NUR ---
PATIENT IS RESTING IN BED, EYES CLOSED, OBSERVED CHEST RISE AND FALL. BED IN LOW POSITION, CALL LIGHT ON AND WITHIN REACH, WILL CONTINUE TO MONITOR.
[2019-01-27 16:00] VITALS: BP 107/67
--- NOTE | 2019-01-27 17:00 | NUR ---
PATIENT TOLERATED PAIN MEDICATIONS WELL, RESTING IN BED, FAMILY AT BEDSIDE. BED IS IN LOW POSITION, CALL LIGHT ON AND WITHIN REACH.
--- NOTE | 2019-01-27 19:20 | NUR ---
REPORT HANDED OFF TO ONCOMING BULK FOLDER NURSE FOR CONTINUATION OF CARE.
--- NOTE | 2019-01-27 19:25 | NUR ---
RECEIVED PT IN STABLE CONDITION FROM AM NURSE. AWAKE,ALERT,AND ORIENTEDX4. BEDBOUND. ON TELE MONITOR, -ST. WITH PICC LINE ON RT UPPER ARM DOUBLE LUMEN TPN INFUSING . PLAN OF CARE DISCUSSED AND VERBALIZED UNDERSTANDING. MOTHER AT BEDSIDE. WITH C/O PAIN BUT MADE AWARE ABOUT THE DUE TIME AND WILL WAIT. BED ON LOW POSITION,FREQ ROUNDS NEEDED. CALL LIGHT AND URINAL WITHIN EASY REACH. CONTACT ISOLATION AND FAMILY /PT AWARE ABOUT THE PRECAUTION. WILL CONTINUE TO MONITOR.
[2019-01-27 20:00] VITALS: BP 110/67
[2019-01-27] MEDS: MULTIVITAMIN-12 10 ML in DEXTROSE 50% 760 ML, AMINO ACIDS 8.5% 760 ML, FAT EMULSION 20%... IV SCH ×4 (20:00)
--- NOTE | 2019-01-27 20:55 | NUR ---
PT C/O PAIN. MEDICATED ORDERED . WILL CONTINUE TO MONITOR.
--- NOTE | 2019-01-27 21:00 | NUR ---
BLOOD SUGAR WAS CHECKED RESULT 75. PT ENCOURAGED TO EAT SOME FRUITS. VERBALIZED UNDERSTANDING.
[2019-01-28 02:16] VITALS: BP 103/59
[2019-01-28] MEDS: HYDROmorphone PFS 2 MG/ML SYR IVP PRN ×7 (02:18→21:33)
--- NOTE | 2019-01-28 02:18 | NUR ---
PT C/O PAIN AGAIN. MEDICATED FOR PAIN ORDERED. WILL CONTINUE TO MONITOR.
--- NOTE | 2019-01-28 04:00 | NUR ---
MADE ROUNDS. PT ASLEEP. NO S/S OF AY DISCOMFORT NOTED.
[2019-01-28 05:19] VITALS: BP 99/60
--- NOTE | 2019-01-28 05:27 | NUR ---
PT IN A SEVERE PAIN. MEDICATED ORDERED. WILL CONTINUE TO MONITOR.
--- NOTE | 2019-01-28 07:28 | NUR ---
RECEIVED REPORT FROM CARTON STAPLER NURSE FOR CONTINUITY OF CARE, PATIENT IS RESTING IN BED, SINUS TACHYCARDIA, AAO X4. BED IN LOW POSITION, WILL CONTINUE TO MONITOR.
--- NOTE | 2019-01-28 07:29 | NUR ---
ENDORSED PT IN STABLE CONDITION TO AM NURSE.
[2019-01-28 08:00] VITALS: BP 115/70
[2019-01-28] MEDS: BLOOD GLUCOSE MONITORING 1 DEV DEV FS SCH ×2 (09:27→20:59)
--- NOTE | 2019-01-28 10:00 | NUR ---
ROUNDS MADE, URINAL EMPTIED, CARES OFFERED, PATIENT REFUSED CHG DRESSING CLEANSE. PATIENT IS RESTING IN BED, NO SIGNS OF DISTRESS NOTED. BED IN LOW POSITION, CALL LIGHT ON AND WITHIN REACH, BED ALARM ON, WILL CONTINUE TO MONITOR.
[2019-01-28 12:00] VITALS: BP 102/61
[2019-01-28] MEDS: ONDANSETRON 4 MG/2 ML VIAL IVP PRN (12:09)
--- NOTE | 2019-01-28 12:30 | NUR ---
ROUNDS MADE, PATIENT REFUSED POSITION CHANGE, LINEN CHANGE, AND BATHING WITH HEALTH CARE ATTORNEY AND THERMOSTAT MAKER PRESENT. MULTIPLE ATTEMPTS MADE, PATIENT IS FOCUSED ON PAIN MEDICATION. INCENTIVE SPIROMETER OFFERED TO PATIENT TO IMPROVE OXYGENATION, PATIENT ACCEPTED. EDUCATED ON THE PROPER USE OF THE INCENTIVE SPIROMETER. BED IN LOW POSITION, CALL LIGHT ON AND WITHIN REACH, WILL CONTINUE TO MONITOR.
[2019-01-28] MEDS: THERAHONEY GEL 42.5 GM TP SCH (13:00)
--- NOTE | 2019-01-28 15:00 | NUR ---
ROUNDS MADE, PATIENT WAS MEDICATED FOR PAIN WITH DILAUDID. PATIENT HAS FAMILY AT BEDSIDE. PATIENT IS RESTING WATCHING TELEVISION. BED IN LOW POSITION CALL LIGHT ON AND WITHIN REACH WILL CONTINUE TO MONITOR.
--- NOTE | 2019-01-28 15:28 | NUR ---
01/28/19 RD FOLLOW UP COMPLETED PLEASE REFER TO NUTRITION ASSESSMENT UNDER CARE ACTIVITY FOR ESTIMATED NUTRITIONAL NEEDS. 1. CONTINUE REGULAR DIET W/ELECARE JR TID 2. RD PROVIDED NUTRITION EDUCATION HANDOUT WITH FOODS HIGH IN PROTEIN. GOAL FOR PROTIEN INTAKE FROM DIET IS 40 GM/DAY IN ADDITION TO TPN (71 GM OF PROTEIN) 3. ENCOURAGE FAMILY TO BRING SUPPLEMENTS AND FOOD FROM HOME IF APPROPRIATE PER MD 4. RECOMMEND INCREASING TPN INFUSION WHEN MEDICALLY APPROPRIATE TO MEET75% OF ESTIMATED NEEDS -CURRENT TPN D15%, AA 4.25%, LIPIDS 10% 100 ML AT 70 ML/HR WHICH PROVIDES 1242 KCAL AND 71.4 GM OF PROTEIN/DAY 5. ENCOURAGE INCREASING PO INTAKE 6. RD WILL FOLLOW UP 2-3 DAYS, HIGH RISK ALEXEI JOHNSTON RD
[2019-01-28 16:00] VITALS: BP 109/65
--- NOTE | 2019-01-28 17:15 | NUR ---
PAIN MEDS GIVEN, TOLERATED WELL, WILL CONTINUE TO MONITOR. BED IN LOW POSITION.
--- NOTE | 2019-01-28 19:12 | NUR ---
REPORT GIVEN TO ONCOMING SALES ENGINEER ENGINEERED PRODUCTS NURSE FOR CONTINUATION OF CARE.
--- NOTE | 2019-01-28 19:13 | NUR ---
RECEIVED BEDSIDE REPORT FROM DAY SHIFT NURSE. AWAKE,ALERT,AND ORIENTEDX4. BEDBOUND. ON TELE MONITOR, -ST. WITH PICC LINE ON RT UPPER ARM DOUBLE LUMEN TPN INFUSING . PLAN OF CARE DISCUSSED AND VERBALIZED UNDERSTANDING. MOTHER AT BEDSIDE. WITH C/O PAIN BUT MADE AWARE ABOUT THE DUE TIME AND WILL WAIT. BED ON LOW POSITION,FREQ ROUNDS NEEDED. CALL LIGHT AND URINAL WITHIN EASY REACH. CONTACT ISOLATION AND FAMILY /PT AWARE ABOUT THE PRECAUTION. WILL CONTINUE TO MONITOR.
[2019-01-28 20:00] VITALS: BP 110/0
[2019-01-28] MEDS: MULTIVITAMIN-12 10 ML in DEXTROSE 50% 760 ML, AMINO ACIDS 8.5% 760 ML, FAT EMULSION 20%... IV SCH ×4 (20:49)
--- NOTE | 2019-01-28 20:59 | NUR ---
GIVEN TPN MD ORDERED. BS CHECKED, 65, GIVEN 2PACKS OF ORANGE JUICE. WILL RE ASSESS.
--- NOTE | 2019-01-28 21:33 | NUR ---
PT C/O 10/19 PAIN, GIVEN DILAUDID MD ORDERED. PT TOLERATED WELL. BS RECHECKED, 82. WITHIN NORMAL RANGE.
--- NOTE | 2019-01-28 23:59 | NUR ---
VS CHECKED, WITHIN PT'S BASELINE. WILL CONTINUE TO MONITOR.
[2019-01-29] VITALS: BP 119/66
[2019-01-29] MEDS: HYDROmorphone PFS 2 MG/ML SYR IVP PRN ×8 (00:41→23:50)
--- NOTE | 2019-01-29 00:41 | NUR ---
PT C/O 10/19 PAIN, GIVEN DILAUDID MD ORDERED. PT TOLERATED WELL.
--- NOTE | 2019-01-29 02:29 | NUR ---
PT LYING IN BED. NO ACUTE DISTRESS NOTED. WILL CONTINUE TO MONITOR.
[2019-01-29 04:00] VITALS: BP 118/60
--- NOTE | 2019-01-29 04:04 | NUR ---
VS CHECKED, WITHIN PT'S BASELINE, PT C/O 9/10 PAIN, GIVEN DILAUDID MD ORDERED. PT TOLERATED WELL.
--- NOTE | 2019-01-29 07:01 | NUR ---
PT C/O 10/19 PAIN, GIVEN DILAUDID MD ORDERED. PT TOLERATED WELL.
--- NOTE | 2019-01-29 07:10 | NUR ---
RECEIVED BEDSIDE REPORT FROM NIGHT NURSE. PT IS ALERT AND ORIENTED X4. PICC LINE INTACT AND PATENT TO RIGHT UPPER ARM WITH DOUBLE LUMEN. TPN INFUSING AT 70ML/HR, TOLERATING WELL. NO S/S OF DISTRESS NOTED. BED IN LOW POSITION. CALL LIGHT WITHIN REACH.
[2019-01-29 08:00] VITALS: BP 101/59
[2019-01-29] MEDS: BLOOD GLUCOSE MONITORING 1 DEV DEV FS SCH ×2 (08:02→20:28)
--- NOTE | 2019-01-29 09:10 | NUR ---
PT IS ALERT AND AWAKE, ORIENTED X4. PT IS WATCHING TV. NO S/S OF DISTRESS NOTED. TPN INFUSING @70ML/HR, TOLERATING WELL. CALL LIGHT WITHIN REACH.
[2019-01-29 12:00] VITALS: BP 110/60
--- NOTE | 2019-01-29 12:00 | NUR ---
VS STABLE. PT ALERT, AWAKE AND ORIENTED X4. NO S/S OF DISTRESS NOTED. CALL LIGHT WITHIN REACH.
--- NOTE | 2019-01-29 12:19 | NUR ---
@ 1015: RECEIVED A CALL FROM [facility] [employer] TO FAX PT'S RECORDS TO [facility] FAX# [phone]. PT'S H&P, FACE SHEET, LATEST PROGRESS NOTES FOR 2 DAYS, CURRENT MEDS, CURRENT LABS FAXED, CONFIRMATION ATTACHED TO PT'S CHART.
[2019-01-29] MEDS: THERAHONEY GEL 42.5 GM TP SCH (12:48)
--- NOTE | 2019-01-29 13:22 | NUR ---
PT C/O PAIN, MEDICATED WITH DILAUDID 2MG ORDERED PRN FOR SEVERE PAIN. SEE PAIN ASSESSMENT. PT IS AWAKE, NO S/S OF DISTRESS NOTED.
--- NOTE | 2019-01-29 13:40 | NUR ---
RECEIVED A PHONE CALL FROM VY BOWENISON FOR [facility] INQUIRING ABOUT PT STATUS AND IN REGARDS TO PATIENT TRANSFER TO [facility].
--- NOTE | 2019-01-29 13:54 | NUR ---
ANDRÉS MARIN INVESTMENT UNDERWRITER FROM [facility] (# [phone]), STATED SHE WILL DO THE EVALUATION FOR [facility] AND [facility]. PER ANDRÉS, THEIR OWN BUSINESS OFFICE WILL CALL THE EMERGENCY SERVICES PROFESSIONAL [facility] REFINING MACHINE OPERATOR THIS WEEKEND, IF NOBODY WILL ANSWER THEN THEY WILL TAKE CARE OF IT ON THURSDAY, BUT SHE WILL START THE EVALUATION.
--- NOTE | 2019-01-29 15:00 | NUR ---
PT IS ALERT, AWAKE AND ORIENTED X4. PT IS WATCHING TV. NO S/S OF DISTRESS NOTED.
[2019-01-29 16:00] VITALS: BP 105/56
--- NOTE | 2019-01-29 17:00 | NUR ---
PT IS ALERT, AWAKE AND ORIENTED X4. PT IS WATCHING TV. PT REPORTS REDUCED PAIN AFTER DILAUDID ADMINISTRATION. NO S/S OF DISTRESS NOTED.
--- NOTE | 2019-01-29 19:00 | NUR ---
RECEIVED BEDSIDE REPORT FROM DAY SHIFT NURSE. AWAKE,ALERT,AND ORIENTEDX4. RESPIRATION EVEN UNLABORED ON ROOM AIR. SKIN IS WARM AND DRY. PICC LINE ON RT UPPER ARM DOUBLE LUMEN NOTED. PLAN OF CARE DISCUSSED. ALL SAFETY MEASURES IN PLACE. BED IS AT LOW POSITION. CALL LIGHT WITHIN REACH AND VERBALIZES ITS USE. WILL CONTINUE TO MONITOR.
--- NOTE | 2019-01-29 19:06 | NUR ---
PT IN STABLE CONDITION. WILL ENDORSE TO NIGHT NURSE FOR CONTINUITY OF CARE.
[2019-01-29 20:00] VITALS: BP 110/67
--- NOTE | 2019-01-29 20:20 | NUR ---
INITIAL ASSESSMENT DONE. COLOSTOMY BAG NOTED INTACT AND PLACE. VITALS WERE TAKEN. COMPLAINED OF 8/10 PAIN. WILL ADMINISTERED PAIN MEDS PER ORDER. OFFERED TO BE REPOSITION. PATIENT REFUSED. WILL CONTINUE TO MONITOR.
[2019-01-29] MEDS: MULTIVITAMIN-12 10 ML in DEXTROSE 50% 760 ML, AMINO ACIDS 8.5% 760 ML, FAT EMULSION 20%... IV SCH ×4 (20:28)
--- NOTE | 2019-01-29 20:30 | NUR ---
ALL SCHEDULED MEDS GIVEN PER ORDER. TPN BAG CHANGED. DURAGESIC PATCH CHANGED. WILL CONTINUE TO MONITOR.
[2019-01-29] MEDS: fentaNYL 0.075 MG/HR PATCH TD SCH (20:49)
--- NOTE | 2019-01-29 22:40 | NUR ---
CHECKED PATIENT. PATIENT WATCHING TV RESPIRATION EVEN UNLABORED ON ROOM AIR. NO DISTRESS NOTED. WILL CONTINUE TO MONITOR.
--- NOTE | 2019-01-29 23:56 | NUR ---
VITALS WERE TAKEN. PATIENT COMPLAINED OF PAIN 8/10. PRN PAIN MED ADMINISTERED PER ORDER, WILL CONTINUE TO MONITOR.
[2019-01-30] VITALS: BP 105/65
--- NOTE | 2019-01-30 02:00 | NUR ---
CHECKED PATIENT. PATIENT SLEEPING RESPIRATION EVEN UNLABORED ON ROOM AIR NO DISTRESS NOTED. WILL CONTINUE TO MONITOR
[2019-01-30 04:00] VITALS: BP 109/62
[2019-01-30] MEDS: HYDROmorphone PFS 2 MG/ML SYR IVP PRN ×4 (04:30→19:07)
--- NOTE | 2019-01-30 04:33 | NUR ---
VITALS WERE TAKEN. PATIENT COMPLAINED OF PAIN 9/10.PRN PAIN MED ADMINISTERED PER ORDER. NO DISTRESS NOTED. WILL CONTINUE TO MONITOR.
--- NOTE | 2019-01-30 07:13 | NUR ---
ENDORSED PATIENT IN DAY SHIFT NURSE. PATIENT IN STABLE CONDITION
--- NOTE | 2019-01-30 07:25 | NUR ---
ROUNDS MADE, PATIENT VERBALIZED PAIN, DILAUDID ADMINISTERED IVP, PATIENT TOLERATED WITH MILD NAUSEA. PATIENT EDUCATED ON THE IMPORTANCE OF VERBALIZING NEEDS TO STAFF. BED IN LOW POSITION, CALL LIGHT ON AND WITHIN REACH. WILL CONTINUE TO MONITOR.
[2019-01-30 08:00] VITALS: BP 99/55
[2019-01-30] MEDS: BLOOD GLUCOSE MONITORING 1 DEV DEV FS SCH ×2 (09:59→21:00)
[2019-01-30] MEDS: ONDANSETRON 4 MG/2 ML VIAL IVP PRN (10:00)
--- NOTE | 2019-01-30 10:00 | NUR ---
PATIENT IS IN BED, COUGHING, HAVING DIFFICULTY BREATHING WITH SOB, PULSE IS 154. PAIN MEDICATIONS GIVEN, PATIENT IS VOMITING UP TPN AND COMPLAINING OF NAUSEA, ZOFRAN ADMINISTERED. BED IN LOW POSITION, AAO X 4. WILL CONTINUE TO MONITOR. CALL LIGHT ON AND WITHIN REACH.
--- NOTE | 2019-01-30 11:20 | NUR ---
PATIENT IS IN BED, VOMITTING TPN, SOB AND HIGH PULSE NOTED, LUNG SOUNDS ARE CLEAR BUT STRESSED. TEMPERATURE IS 99.5 [address]AL[address] PAGE SENT OUT TO COVERING DOCTOR PAUL. PATIENT COMPLAINS OF DIFFICULTY BREATHING. WILL CONTINUE TO MONITOR.
[2019-01-30 12:00] VITALS: BP 106/63
--- NOTE | 2019-01-30 12:20 | NUR ---
ORDERS FOR CHEST X RAY AND BLOOD CULTURES PER DR. MILLER, DR. MILLER ADVISED FOR DR. RODRIGUEZ TO ASSESS CENTRAL LINE, INFECTIOUS DISEASE DR. RODRIGUEZ IS ON VACATION UNTIL January, DR. Nancy SCOTT [phone]. DR. SCOTT PAGED. PATIENT IS RESTING IN BED. WILL CONTINUE TO MONITOR. COOLING MEASURES INITIATED.
[2019-01-30] MEDS: THERAHONEY GEL 42.5 GM TP SCH (13:00)
[2019-01-30 14:06] LABS: BASOPHILS % (AUTO) 0.5 % (0.0-2.0); HEMATOCRIT 27.3 % (36-52); HEMOGLOBIN 8.7 g/dL (12.0-18.0); LYMPHOCYTES # (AUTO) 0.9 K/uL (2.0-11.5); LYMPHOCYTES % (AUTO) 17.7 % (20.5-51.1); MEAN CORPUSCULAR HEMOGLOBIN 28 pg (27-31); MEAN CORPUSCULAR HGB CONC 32 g/dL (33-37); MEAN CORPUSCULAR VOLUME 87.2 fL (80-94); MONOCYTES # (AUTO) 0.4 K/uL (0.8-1.0); MONOCYTES % (AUTO) 8.7 % (1.7-9.3); NEUTROPHILS # (AUTO) 3.8 K/uL (1.8-7.7); NEUTROPHILS % (AUTO) 73.1 % (42.2-75.2); PLATELET COUNT (AUTO) 403 K/uL (140-450); RED BLOOD CELL COUNT(AUTO) 3.14 MIL/uL (4.20-6.10); RED CELL DISTRIBUTION WIDTH 16.6 % (11.6-13.7); WHITE BLOOD COUNT (AUTO) 5.2 K/uL (4.8-10.8)
[2019-01-30 14:23] LABS: ALBUMIN 1.4 g/dL (3.4-5.0); CARBON DIOXIDE 23.8 mmol/L (21-32); CREATININE 0.9 mg/dL (0.7-1.3); POTASSIUM 4.8 mmol/L (3.5-5.1); TOTAL BILIRUBIN 0.1 mg/dL (0.0-1.0)
[2019-01-30] MEDS: PIPERACILLIN/TAZOBACTAM 3.375 GM in DEXTROSE 5% 50 ML IV SCH ×2 (15:24→20:52)
[2019-01-30 16:00] VITALS: BP 110/62
--- NOTE | 2019-01-30 16:30 | NUR ---
RECEIVED REPORT REGARDING THE PT FOR AM SHIFT ANNA, PT IS ASLEEP AND LYING ON THE BED, MOTHER ON THE BEDSIDE. WILL MONITOR TP.
--- NOTE | 2019-01-30 18:15 | NUR ---
PT WAS GIVEN IV PUSH PAIN MEDICATION NOW, PARAMETER CHECKE AND WITHIN NORMAL LIMIT. WILL RE-ASSESS AND MONITOR PT.
--- NOTE | 2019-01-30 19:30 | NUR ---
ENDORSED PT TO RE ETCHER NURSE FOR CONTINUITY OF CARE.
--- NOTE | 2019-01-30 19:31 | NUR ---
REPORT RECEIVED FROM AM NURSE AT BEDSIDE. PT IN STABLE CONDITION. AAOX3-4. INTRODUCED SELF TO PT. BOARD UPDATED. NO COMPLAINTS OF PAIN. NO SOB. AFEBRILE. PT IS BEDBOUND. PT HAS COLOSTOMY. IV SITE R UA DOUBLE LUMEN PICC RUNNING TPN@70ML/HR PATENT AND INTACT. SKIN WARM, DRY, TIGHT, AND NOT INTACT DUE TO MULTIPLE WOUNDS, BURN WOUNDS, AND PRESSURE ULCERS. SEE WOUND NOTES. BED LOCKED IN LOW POSITION. CALL CONN WITHIN REACH. SAFETY PRECAUTION IN PLACE. ALL NEEDS MET AT THIS TIME.
[2019-01-30 20:00] VITALS: BP 102/59
[2019-01-30] MEDS: MULTIVITAMIN-12 10 ML in DEXTROSE 50% 760 ML, AMINO ACIDS 8.5% 760 ML, FAT EMULSION 20%... IV SCH ×4 (20:51)
--- NOTE | 2019-01-30 20:51 | NUR ---
TPN HUNG AND RUNNING. RODN HUNG AND RUNNING. BS 102. NO INSULIN COVERAGE NEEDED. PT TOLERATING WELL.
--- NOTE | 2019-01-30 22:45 | NUR ---
PT SLEEPING COMFORTABLY BUT AROUSABLE. NO S/S OF DISTRESS NOTED. WILL CONTINUE TO MONITOR.
[2019-01-31] VITALS: BP 111/69
[2019-01-31] MEDS: HYDROmorphone PFS 2 MG/ML SYR IVP PRN ×4 (00:08→21:49)
--- NOTE | 2019-01-31 00:08 | NUR ---
DILAUDID GIVEN FOR 9/10 GENERALIZED PAIN. PT TOLERATED WELL.
--- NOTE | 2019-01-31 01:50 | NUR ---
PT SLEEPING COMFORTABLY BUT AROUSABLE. NO S/S OF DISTRESS NOTED. NO RESPIRATIONS EVEN, UNLABORED, AND WNL. WILL CONTINUE TO MONITOR.
[2019-01-31 04:00] VITALS: BP 115/72
[2019-01-31] MEDS: PIPERACILLIN/TAZOBACTAM 3.375 GM in DEXTROSE 5% 50 ML IV SCH ×3 (04:23→21:45)
--- NOTE | 2019-01-31 04:23 | NUR ---
KIKI HUNG AND RUNNING. PT TOLERATING WELL.
--- NOTE | 2019-01-31 04:51 | NUR ---
DILAUDID GIVEN FOR 8/10 GENERALIZED PAIN. PT TOLERATED WELL.
--- NOTE | 2019-01-31 05:30 | NUR ---
PT SLEEPING COMFORTABLY BUT AROUSABLE. NO S/S OF DISTRESS NOTED. NO COMPLAINTS OF PAIN. ALREADY MEDICATED. NO SOB. AFEBRILE. WILL CONTINUE TO MONITOR.
--- NOTE | 2019-01-31 06:55 | NUR ---
PT SLEEPING COMFORTABLY BUT AROUSABLE. PT IN STABLE CONDITION.
--- NOTE | 2019-01-31 07:13 | NUR ---
RECEIVED REPORT FROM THERAPEUTIC PROGRAM WORKER NURSE FOR CONTINUITY OF CARE. BED IN LOW POSITION CALL LIGHT ON AND WITHIN REACH. OBSERVED CHEST RISE AND FALL. WILL CONTINUE TO MONITOR.
[2019-01-31 08:00] VITALS: BP 115/56
--- NOTE | 2019-01-31 08:20 | NUR ---
LEAD DATABASE ADMINISTRATOR REPORTED HEART RATE OF 175 LASTING APPROXIMATELY 1 MINUTE, PATIENT WAS RESTLESS AND PANICLY STATING, "I DONT KNOW WHATS WRONG WITH ME". V/S APPEAR WNL B/P:119/65 , TEMP 99.2 ORAL, SPO2 99%, RR 20. CHARGE NURSE NOTIFIED, DR. MILLER PAGED. WAITING FOR RESPONSE.
[2019-01-31] MEDS: ONDANSETRON 4 MG/2 ML VIAL IVP PRN (08:22)
[2019-01-31 08:57] LABS: BASOPHILS % (AUTO) 0.7 % (0.0-2.0); EOSINOPHILS % (AUTO) 0.1 % (0.0-4.0); HEMATOCRIT 26.2 % (36-52); HEMOGLOBIN 8.4 g/dL (12.0-18.0); LYMPHOCYTES # (AUTO) 0.6 K/uL (2.0-11.5); LYMPHOCYTES % (AUTO) 8.7 % (20.5-51.1); MEAN CORPUSCULAR HEMOGLOBIN 28 pg (27-31); MEAN CORPUSCULAR HGB CONC 32 g/dL (33-37); MEAN CORPUSCULAR VOLUME 86.3 fL (80-94); MONOCYTES # (AUTO) 0.5 K/uL (0.8-1.0); MONOCYTES % (AUTO) 7.4 % (1.7-9.3); NEUTROPHILS # (AUTO) 5.5 K/uL (1.8-7.7); NEUTROPHILS % (AUTO) 83.1 % (42.2-75.2); PLATELET COUNT (AUTO) 357 K/uL (140-450); RED BLOOD CELL COUNT(AUTO) 3.04 MIL/uL (4.20-6.10); RED CELL DISTRIBUTION WIDTH 16.5 % (11.6-13.7); WHITE BLOOD COUNT (AUTO) 6.6 K/uL (4.8-10.8)
[2019-01-31 09:07] LABS: CARBON DIOXIDE 23.4 mmol/L (21-32); POTASSIUM 4.4 mmol/L (3.5-5.1)
[2019-01-31 09:11] LABS: PHOSPHORUS 3.8 mg/dL (2.5-4.9)
[2019-01-31] MEDS: BLOOD GLUCOSE MONITORING 1 DEV DEV FS SCH ×2 (09:54→21:55)
[2019-01-31] MEDS ORDERED: LORazepam 1 MG TAB PO PRN (11:05)
--- NOTE | 2019-01-31 11:48 | NUR ---
PATIENT HAD A HEART RATE OF 165, ALTERED LEVEL OF CONSCIOUSNESS, REPEATING THE SAME WORDS, FIXED GAZE, PRESENTING CONFUSED. HE WAS UNABLE TO ASSIST HIMSELF TO USE THE URINAL AND REQUIRED ASSISTANCE. DR. Cinthia SCOTT CALLED FOR FOLLOW UP WITH CENTRAL LINE. CHARGE NURSE AWARE. O2 2L NASAL CANNULA PLACED ON HIM. WILL CONTINUE TO MONITOR.
[2019-01-31 12:00] VITALS: BP 121/68
[2019-01-31] MEDS ORDERED: VANCOMYCIN PER PHARMACY MC PRN (12:10)
[2019-01-31] MEDS ORDERED: TOBRAMYCIN PER PHARMACY MC PRN (12:10)
[2019-01-31] MEDS: THERAHONEY GEL 42.5 GM TP SCH (13:00)
--- NOTE | 2019-01-31 15:40 | NUR ---
01/31/19 RD FOLLOW UP COMPLETED PLEASE REFER TO NUTRITION ASSESSMENT UNDER CARE ACTIVITY FOR ESTIMATED NUTRITIONAL NEEDS. 1. CONTINUE REGULAR DIET W/ANDRE JR CHOCOLATE SHAKE TID 2. RD PROVIDED NUTRITION EDUCATION HANDOUT WITH FOODS HIGH IN PROTEIN. GOAL FOR PROTEIN INTAKE FROM DIET IS 60 GM/DAY IN ADDITION TO TPN (50 GM OF PROTEIN) 3. ENCOURAGE FAMILY TO BRING SUPPLEMENTS AND FOOD FROM HOME IF APPROPRIATE PER MD 4. RECOMMEND INCREASING TPN INFUSION WHEN MEDICALLY APPROPRIATE TO MEET 75% OF ESTIMATED NEEDS -CURRENT TPN D15%, AA 3%, LIPIDS 10% 100 ML AT 70 ML/HR WHICH PROVIDES 1157 KCAL AND 50 GM OF PROTEIN/DAY 5. ENCOURAGE INCREASING PO INTAKE 6. RD WILL FOLLOW UP 2-3 DAYS, HIGH RISK ALEXEI JOHNSTON RD
[2019-01-31 16:00] VITALS: BP 135/72
--- NOTE | 2019-01-31 17:25 | NUR ---
REPORT GIVEN TO LOGISTICS LOSS PREVENTION MANAGER NURSE FOR CONTINUITY OF CARE.
[2019-01-31] MEDS: VANCOMYCIN 750 MG in DEXTROSE 5% 250 ML IV SCH (17:28)
--- NOTE | 2019-01-31 19:25 | NUR ---
RECEIVED PT ON BED, AWAKE BUT NOT TALKING, JUST STARING ON THE CEILING, MOTHER AT BEDSIDE, VITAL SIGNS TAKEN, ST WITH 139 BPM, AXILLARY TEMP-101.9, FLACC-0, COOLING MEASURES INITIATED, TPN ON-GOING AT 70ML/H VIA RT UA PICC LINE, WITH MULTIPLE BURN WOUNDS AND PRESSURE ULCERS, COLOSTOMY IN PLACE WITH SMALL BROWN LIQUID STOOL, MAINTAINED ON CONTACT PRECAUTION, FOR PICC LINE INSERTION TONIGHT, CALL LIGHT WITHIN REACH.
[2019-01-31] MEDS: TOBRAMYCIN 80 MG in DEXTROSE 5% 100 ML IV SCH (19:46)
[2019-01-31 20:00] VITALS: BP 124/67
[2019-01-31] MEDS: ACETAMINOPHEN 650 MG/20.3 ML UDC PO PRN (20:14)
[2019-01-31] MEDS: MULTIVITAMIN-12 10 ML in DEXTROSE 50% 760 ML, AMINO ACIDS 8.5% 760 ML, FAT EMULSION 20%... IV SCH ×4 (21:29)
--- NOTE | 2019-01-31 21:40 | NUR ---
PICC LINE NURSE CLAY INSERTED A MIDLINE 2 PORT TO LEFT UA AND STATED IT'S OK TO USE IT, DRESSING DRY AND INTACT, NO BLEEDING NOTED, NEW TPN BAG HANGED BY CHARGE NURSE LÓPEZ WITH RATE AT 70ML/H, DUE ZOSYN ADMINISTERED, BLOOD SUGAR CHECKED WITH 87 RESULT, PT IS RESTLESS AND CONFUSED, NO TALKING, JUST MOANING AND GRUNTING, UNABLE TO FOLLOW COMMANDS, WILL MEDICATE WITH DILAUDID IVP, MONITORED CLOSELY.
--- NOTE | 2019-01-31 22:30 | NUR ---
PREVIOUS PICC LINE AT RT UA DISCONTINUED, DRESSING APPLIED TO SITE, TIP SENT TO LAB FOR AEROBIC CULTURE, MONITORED CLOSELY.
--- NOTE | 2019-01-31 23:25 | NUR ---
SEEN PT SLEEPING, OPEN EYES TO TOUCH, STILL NONVERBAL, VITAL SIGNS TAKEN, ST WITH 120 BPM, AFEBRILE TEMP-98.1, FLACC-0, NO SOB NOTED, TPN INFUSING WELL, CONTINUE TO MONITOR CLOSELY.
[2019-02-01] VITALS: BP 124/73
[2019-02-01] MEDS: HYDROmorphone PFS 2 MG/ML SYR IVP PRN ×7 (01:41→23:08)
--- NOTE | 2019-02-01 01:41 | NUR ---
HEARD PT SCREAMING, SEEN PT RESTLESS, STILL NOT TALKING WHEN ASKED, JUST GRUNTING, MEDICATED PRN WITH DILAUDID IVP, TPN INFUSING WELL, MONITORED CLOSELY.
[2019-02-01] MEDS: TOBRAMYCIN 80 MG in DEXTROSE 5% 100 ML IV SCH ×2 (03:12→16:19)
--- NOTE | 2019-02-01 03:25 | NUR ---
PT SLEEPING, OPEN EYES TO TOUCH, RESTLESS AND STARTED LOUDLY GRUNTING "DUH, DUH", PT NOT TALKING, JUST KEEP REPEATEDLY GRUNTING DUH, VITAL SIGNS TAKEN, ST ON TELE, AXILLARY TEMP-99.2, UNABLE TO USE URINAL, INCONTINENT AT THIS TIME, CLEANED PT BY FRANCISCO MCCRAY, CONDOM CATH APPLIED, DUE TOBRAMYCIN ADMINISTERED, MONITORED CLOSELY.
[2019-02-01 04:00] VITALS: BP 133/70
[2019-02-01] MEDS: PIPERACILLIN/TAZOBACTAM 3.375 GM in DEXTROSE 5% 50 ML IV SCH ×3 (04:41→20:35)
--- NOTE | 2019-02-01 05:40 | NUR ---
PT RESTLESS, LOUDLY GRUNTING, STILL NOT SPEAKING, MEDICATED WITH DILAUDID IVP, CONDOM CATHETER INTACT, NO VOID AT THIS TIME, TPN INFUSING AT 70ML/H, MONITORED CLOSELY.
--- NOTE | 2019-02-01 07:15 | NUR ---
PT SLEEPING, AROUSABLE TO VOICE, PT FLAT AFFECT, NOT TALKING WHEN ASKED, NO DISTRESS NOTED, BEDSIDE REPORT GIVEN TO GÉNESIS HARP FOR CONTINUITY OF CARE.
--- NOTE | 2019-02-01 07:20 | NUR ---
RECEIVED BEDSIDE REPORT FROM PM RN PT AWAKE IN BED PT ON TELE MONITORING. PT HAS LEFT UPPER ARM MIDLINE IN PLACE PT IS RECEIVING TPN. PT IS ON WOUND BED. WILL CONTINUE TO MONITOR
[2019-02-01 07:24] LABS: BASOPHILS % (AUTO) 0.4 % (0.0-2.0); EOSINOPHILS % (AUTO) 0.1 % (0.0-4.0); HEMOGLOBIN 7.8 g/dL (12.0-18.0); LYMPHOCYTES # (AUTO) 0.5 K/uL (2.0-11.5); LYMPHOCYTES % (AUTO) 8.1 % (20.5-51.1); MEAN CORPUSCULAR HEMOGLOBIN 28 pg (27-31); MEAN CORPUSCULAR HGB CONC 32 g/dL (33-37); MEAN CORPUSCULAR VOLUME 86.1 fL (80-94); MONOCYTES # (AUTO) 0.4 K/uL (0.8-1.0); MONOCYTES % (AUTO) 7.4 % (1.7-9.3); NEUTROPHILS # (AUTO) 4.7 K/uL (1.8-7.7); PLATELET COUNT (AUTO) 313 K/uL (140-450); RED BLOOD CELL COUNT(AUTO) 2.79 MIL/uL (4.20-6.10); RED CELL DISTRIBUTION WIDTH 16.6 % (11.6-13.7); WHITE BLOOD COUNT (AUTO) 5.6 K/uL (4.8-10.8)
[2019-02-01 07:30] LABS: ANION GAP 13.9 (8-16); POTASSIUM 3.9 mmol/L (3.5-5.1)
[2019-02-01 08:25] VITALS: BP 132/67
--- NOTE | 2019-02-01 09:20 | NUR ---
FINGERSTICK GLUCOSE 97 NO COVERAGE NEEDED, PT ORAL TEMP 100.4 ADMINISTERED TYLENOL PO. PT SCREAMING IN PAIN ADMINISTERED DILUADID PER ORDER. PTS LINENS DIRTY. OFFERED TO CHANGE PATIENTS LINENS PATIENT SCREAMED AND REFUSED. MYSELF AND 2 CNAS WERE PRESENT FOR PATIENT REFUSING LINEN CHANGE. CHANGED TOP LINEN SHEET ONLY. OFFERED TO PULL PATIENT UP PATIENT FOOT IS AT THE BOTTOM OF THE BED. PT SCREAMED AND REFUSED REPOSITIONING. WILL CONTINUE TO MONITOR PT TEMP
[2019-02-01] MEDS: ACETAMINOPHEN 650 MG/20.3 ML UDC PO PRN (09:21)
[2019-02-01] MEDS: BLOOD GLUCOSE MONITORING 1 DEV DEV FS SCH ×2 (09:26→20:49)
--- NOTE | 2019-02-01 11:44 | NUR ---
FREQUENT ROUNDING ON PT PT APPEARS STABLE AND IN NO APPARENT DISTRESS. ALL SAFETY MEASURES ARE IN PLACE OFFERED TO REPOSITION PT PT REFUSED. ALL SAFETY MEASURES ARE IN PLACE WILL CONTINUE TO MONITOR.
[2019-02-01 12:36] VITALS: BP 108/72
[2019-02-01] MEDS: THERAHONEY GEL 42.5 GM TP SCH (13:00)
--- NOTE | 2019-02-01 13:05 | NUR ---
OFFERED TO CHANGE PATIENT WOUND DRESSING AND REPOSITION PT. PT REFUSED. CORPORATE BOND TRADER PRESENT PROVIDED EDUCATION ON REFUSING REPOSITIONING AND REFUSING DRESSING CHANGE, PT STATED HE IS AWARE OF THE RISKS AND DOES NOT WANT REPOSITIONING OR DRESSING CHANGES.
--- NOTE | 2019-02-01 13:24 | NUR ---
PT SISTERS ARE AT BEDSIDE. PT APPEARS AGITATED. PT ON TELE MONITOR. TEMP REASSESSMENT TEMP 97.8. ALL SAFETY MEASURES ARE IN PLACE OFFERED TO REPOSITION PT APPEARS STABLE AND IN NO APPARENT DISTRESS. WILL CONTINUE TO MONITOR
[2019-02-01] MEDS: VANCOMYCIN 750 MG in DEXTROSE 5% 250 ML IV SCH (14:05)
--- NOTE | 2019-02-01 14:25 | NUR ---
PT MOTHER IS AT BEDSIDE. PT AWAKE IN BED. OFFERED TO EMPTY COLOSTOMY PT REFUSED. PT MOTHER STATED THAT SHE WOULD EMPTY THE COLOSTOMY HERSELF WHEN HE CALMS DOWN A LITTLE
--- NOTE | 2019-02-01 15:43 | NUR ---
FREQUENT ROUNDING ON PT PT APPEAR STABLE AND IN NO APPARENT DISTRESS ALL SAFETY MEASURES ARE IN PLACE. PT BEING MONITORED ON TELE. PT LEFT ARM MIDLINE IN PLACE. ALL SAFETY MEASURES ARE IN PLACE WILL CONTINUE TO MONITOR.
[2019-02-01 16:30] VITALS: BP 112/76
--- NOTE | 2019-02-01 17:34 | NUR ---
FREQUENT ROUNDING ON PT PT APPEARS STABLE AND IN NO APPARENT DISTRESS ALL SAFETY MEASURES ARE IN PLACE WILL CONTINUE TO MONITOR
[2019-02-01] MEDS: MICAFUNGIN SODIUM 100 MG in NACL 0.9% 100 ML IV SCH (17:40)
--- NOTE | 2019-02-01 19:12 | NUR ---
ENDORSED PT TO PM RN PT APPEARS STABLE AND IN NO APPARENT DISTRESS. PT IS RESTING COMFORTABLY. PT MOTHER AT BEDSIDE, PT IS BEING MONITORED ON TELE. PT LEFT UPPER EXTREMITY PICC LINE. INFUSING TPN AND NS. PT REFUSED REPOSITIONING TODAY. ALL SAFETY MEASURES ARE IN PLACE WILL CONTINUE TO MONITOR
--- NOTE | 2019-02-01 19:13 | NUR ---
RECEIVED BEDSIDE REPORT FROM AM SHIFT NURSE. PATIENT IS LAYING BED IN WITH EYES CLOSED. VISIBLE CHEST RISE AND FALL NOTED. MOTHER IS AT BEDSIDE THAT THIS TIME. LEFT UPPER ARM MIDLINE IN PLACE, PATENT AND INTACT AND INFUSING TPN AT 70MLS. COLOSTOMY IN PLACE. CONDOM CATH IN PLACE. PT NOTED WITH MULTIPLE BURN WOUNDS AND PRESSURE SORES. INITIAL ASSESSMENT DONE. BOARD UPDATED. WILL CONTINUE TO MONITOR PATIENT.
--- NOTE | 2019-02-01 20:00 | NUR ---
PRN DILAUDID GIVEN AT THIS TIME. PATIENT IS AWAKE. SCREAMING AND MOANING WITH FACIAL GRIMACING BUT IS NOT TALKING. WILL CONTINUE TO MONITOR PATIENT.
[2019-02-01 20:15] VITALS: BP 116/60
[2019-02-01] MEDS: MULTIVITAMIN-12 10 ML in DEXTROSE 50% 760 ML, AMINO ACIDS 8.5% 760 ML, FAT EMULSION 20%... IV SCH ×4 (20:29)
--- NOTE | 2019-02-01 20:35 | NUR ---
NEW BAG OF TPN ADMINISTERED AT THIS TIME AT 70MLS AND IV ANTIBIOTIC ZOSYN STARTED AT THIS TIME. WILL CONTINUE TO MONITOR PATIENT.
--- NOTE | 2019-02-01 20:45 | NUR ---
BLOOD GLUCOSE RESULT OF 89. NO INSULIN COVERAGE NEEDED. WILL CONTINUE TO MONITOR PATIENT.
[2019-02-01] MEDS: fentaNYL 0.075 MG/HR PATCH TD SCH (21:44)
--- NOTE | 2019-02-01 21:44 | NUR ---
FENTANYL PATCHES REMOVED SLOWLY AND APPLIED NEW PATCHES ON LEFT SHOULDER AND RIGHT CHEST. SIGNED, DATED AND TIME WRITTEN ON NEW PATCHES. PATIENT IS MOANING AND SCREAMING LOUDLY. ADVISED PATIENT TO DO DEEP BREATHING TO CALM PATIENT DOWN AND PATIENT IS ABLE TO RESPOND WITH "OKAY." WILL CONTINUE TO MONITOR PATIENT.
--- NOTE | 2019-02-01 23:06 | NUR ---
PATIENT IS SCREAMING AND MOANING LOUDLY IN PAIN. PRN DILAUDID GIVEN PER PAIN SCALE. WILL CONTINUE TO MONITOR PATIENT.
--- NOTE | 2019-02-02 00:25 | NUR ---
VITAL SIGNS DONE AT THIS TIME. VISIBLE CHEST RISE AND FALL NOTED. WILL CONTINUE TO MONITOR PATIENT.
[2019-02-02 00:31] VITALS: BP 110/69
--- NOTE | 2019-02-02 01:05 | NUR ---
PATIENT REFUSED WOUND ASSESSMENT AND REPOSITIONING AT THIS TIME. PATIENT WAS MOANING "NO". WILL CONTINUE TO MONITOR PATIENT.
--- NOTE | 2019-02-02 02:35 | NUR ---
VISUAL CHECK DONE. PATIENT IS ASLEEP. VISIBLE CHEST RISE AND FALL NOTED. WILL CONTINUE TO MONITOR PATIENT.
[2019-02-02] MEDS: TOBRAMYCIN 80 MG in DEXTROSE 5% 100 ML IV SCH ×2 (03:55→16:20)
--- NOTE | 2019-02-02 04:00 | NUR ---
VITAL SIGNS TAKEN AT THIS TIME. PATIENT IS AWAKE AND SLIGHTLY MOANING BUT NO DISTRESS NOTED. PT NODS HEAD "NO" WHEN ASKED TO BE REPOSITIONED. WILL CONTINUE TO MONITOR PATIENT.
[2019-02-02] MEDS: HYDROmorphone PFS 2 MG/ML SYR IVP PRN ×5 (04:05→22:04)
--- NOTE | 2019-02-02 04:05 | NUR ---
PATIENT MOANING AND YELLING. PRN DILAUDID GIVEN AT THIS TIME. ABLE TO INSTRUCT PATIENT TO DO DEEP BREATHING AND PATIENT STOPPED YELLING TO SAY "OKAY". WILL CONTINUE TO MONITOR PATIENT.
[2019-02-02 04:31] VITALS: BP 106/73
--- NOTE | 2019-02-02 07:30 | NUR ---
Shift report received from night monitor nurse. Pt is resting in bed and patient is moaning at this time. Vital signs within normal levels. Call light in reach.
[2019-02-02 08:00] VITALS: BP 110/78
[2019-02-02] MEDS: BLOOD GLUCOSE MONITORING 1 DEV DEV FS SCH ×2 (09:19→20:34)
--- NOTE | 2019-02-02 09:43 | NUR ---
Pt is resting in bed in stable condition. Pt responding to name. Call light in reach.
[2019-02-02 12:00] VITALS: BP 110/78
[2019-02-02] MEDS: THERAHONEY GEL 42.5 GM TP SCH (13:00)
--- NOTE | 2019-02-02 13:30 | NUR ---
Pt requested that the condom catheter be removed. Catheter removed as per pt's request. Pt is awake and alert and responding to verbal commands. Pt is resting in bed. Pt asked for pain medication. Will medicate as per order. Mother by bedside. Call light in reach.
[2019-02-02] MEDS: VANCOMYCIN 750 MG in DEXTROSE 5% 250 ML IV SCH (14:05)
--- NOTE | 2019-02-02 14:35 | NUR ---
Pt is resting in bed in stable condition. No signs of distress noted. mother by bedside. Call light in reach.
[2019-02-02 16:00] VITALS: BP 121/70
--- NOTE | 2019-02-02 17:35 | NUR ---
Pt is resting in bed in stable condition. No signs of distress noted. Mother by bedside. Call light in reach.
[2019-02-02] MEDS: MICAFUNGIN SODIUM 100 MG in NACL 0.9% 100 ML IV SCH (18:09)
--- NOTE | 2019-02-02 19:23 | NUR ---
Shift report given to overnight cashier nurse. Pt is in bed in stable condition. Call light in reach.
--- NOTE | 2019-02-02 19:24 | NUR ---
RECEIVED BEDSIDE REPORT FROM AM SHIFT NURSE. PATIENT IS LYING IN BED, RESTING WITH EYES CLOSED. MOTHER IS AT BEDSIDE. VISIBLE CHEST RISE AND FALL NOTED. NO SOB OR DISTRESS NOTED. ON ROOM AIR. PATIENT IS ON TELE MONITORING. IV ACCESS ON LEFT UPPER ARM MIDLINE WITH TPN INFUSING AT 70MLS. PATIENT NOTED WITH COLOSTOMY. PATIENT HAS MULTIPLE GONZALES AND PRESSURE SORES. FENTANYL PATCHES NOTED ON LEFT SHOULDER AND RIGHT CHEST. BED IN LOW, SAFETY MEASURES IN PLACE. INITIAL ASSESSMENT DONE. BOARD UPDATED. CALL LIGHT PLACED WITHIN PATIENT REACH. WILL CONTINUE TO MONITOR PATIENT.
[2019-02-02] MEDS: MULTIVITAMIN-12 10 ML in DEXTROSE 50% 760 ML, AMINO ACIDS 8.5% 760 ML, FAT EMULSION 20%... IV SCH ×4 (19:50)
--- NOTE | 2019-02-02 19:50 | NUR ---
NEW TPN BAG HUNG AT THIS TIME AT 70MLS. WILL CONTINUE TO MONITOR PATIENT.
[2019-02-02 20:20] VITALS: BP 113/70
--- NOTE | 2019-02-02 20:34 | NUR ---
PATIENT NOTED WITH A BLOOD GLUCOSE RESULT OF 87. NO INSULIN COVERAGE NEEDED. WILL CONTINUE TO MONITOR PATIENT.
--- NOTE | 2019-02-02 21:30 | NUR ---
PATIENT IS AWAKE AND ALERT AT THIS TIME. PATIENT IS STARTING TO EAT DINNER. PATIENT IS CONVERSATING IN FULL SENTENCES. NO DISTRESS NOTED AT THIS TIME. WILL CONTINUE TO MONITOR PATIENT.
--- NOTE | 2019-02-03 00:25 | NUR ---
VITAL SIGNS TAKEN AT THIS TIME. NO DISTRESS NOTED. WILL CONTINUE TO MONITOR PATIENT.
[2019-02-03 00:30] VITALS: BP 111/69
--- NOTE | 2019-02-03 01:35 | NUR ---
PATIENT REFUSED WOUND ASSESSMENT AND REPOSITIONING. WILL CONTINUE TO MONITOR PATIENT.
[2019-02-03] MEDS: HYDROmorphone PFS 2 MG/ML SYR IVP PRN ×5 (02:45→20:52)
--- NOTE | 2019-02-03 02:45 | NUR ---
PRN DILAUDID WAS GIVEN AT THIS TIME. PATIENT WAS MOANING AND SAID HE WAS IN PAIN 10/19. WILL CONTINUE TO MONITOR PATIENT.
[2019-02-03] MEDS: TOBRAMYCIN 80 MG in DEXTROSE 5% 100 ML IV SCH ×2 (02:54→17:01)
--- NOTE | 2019-02-03 02:54 | NUR ---
TOBRAMYCIN HUNG AT THIS TIME. PATIENT IS AWAKE AND ALERT WATCHING TV. WILL CONTINUE TO MONITOR PATIENT.
--- NOTE | 2019-02-03 03:57 | NUR ---
VITAL SIGNS TAKEN AT THIS TIME. NO DISTRESS NOTED. PATIENT AWAKE AND ALERT WATCHING TV. CALL LIGHT WITHIN PATIENT REACH. WILL CONTINUE TO MONITOR PATIENT.
[2019-02-03 03:59] VITALS: BP 111/72
--- NOTE | 2019-02-03 06:30 | NUR ---
PATIENT IN STABLE CONDITION. VISIBLE CHEST RISE AND FALL NOTED. NO DISTRESS NOTED. WILL ENDORSE TO AM SHIFT NURSE FOR CONTINUITY OF CARE.
[2019-02-03 07:02] LABS: BASOPHILS % (AUTO) 0.6 % (0.0-2.0); EOSINOPHILS # (AUTO) 0.8 K/uL (0-0.4); EOSINOPHILS % (AUTO) 10.6 % (0.0-4.0); HEMATOCRIT 22.2 % (36-52); HEMOGLOBIN 7.2 g/dL (12.0-18.0); LYMPHOCYTES # (AUTO) 1.5 K/uL (2.0-11.5); LYMPHOCYTES % (AUTO) 21.5 % (20.5-51.1); MEAN CORPUSCULAR HEMOGLOBIN 28 pg (27-31); MEAN CORPUSCULAR HGB CONC 32 g/dL (33-37); MEAN CORPUSCULAR VOLUME 86.5 fL (80-94); NEUTROPHILS # (AUTO) 3.8 K/uL (1.8-7.7); NEUTROPHILS % (AUTO) 53.3 % (42.2-75.2); PLATELET COUNT (AUTO) 319 K/uL (140-450); RED BLOOD CELL COUNT(AUTO) 2.57 MIL/uL (4.20-6.10); RED CELL DISTRIBUTION WIDTH 16.8 % (11.6-13.7); WHITE BLOOD COUNT (AUTO) 7.2 K/uL (4.8-10.8)
--- NOTE | 2019-02-03 07:10 | NUR ---
RECEIVED BEDSIDE REPORT FROM NIGHTSHIFT NURSE. PT RESTING IN BED. ABLE TO MAKE NEEDS KNOWN. RESPIRATIONS EVEN AND UNLABORED WITH NO SOB OR RESPIRATORY DISTRESS. SKIN WARM AND DRY TO TOUCH. PT IS AWARE OF PROCEDURE TODAY AT 1000. LEFT UPPER ARM MIDLINE INTACT WITH NO COMPLICATIONS AT THIS TIME. TPN RUINING AT 70ML/HR. NO COMPLICATIONS AT THIS TIME. SAFETY MEASURES IN PLACE. WILL CONTINUE TO MONITOR.
[2019-02-03 07:23] LABS: PHOSPHORUS 2.5 mg/dL (2.5-4.9)
[2019-02-03 07:29] LABS: ANION GAP 15.6 (8-16); CARBON DIOXIDE 21.7 mmol/L (21-32); CREATININE 0.7 mg/dL (0.7-1.3); POTASSIUM 3.3 mmol/L (3.5-5.1)
[2019-02-03 08:00] VITALS: BP 113/70
--- NOTE | 2019-02-03 08:13 | NUR ---
PT CALLED AND COMPLAINED OF PAIN. PRN PAIN MEDICATION ADMINISTERED PRESCRIBED PER MD ORDER. PT TOLERATED WELL. MEDICATION EDUCATION PERFORMED. PT ABLE TO VERBALIZE UNDERSTANDING AND TEACH BACK. NO COMPLICATIONS AT THIS TIME. SAFETY MEASURES IN PLACE. WILL CONTINUE TO MONITOR.
[2019-02-03] MEDS: BLOOD GLUCOSE MONITORING 1 DEV DEV FS SCH ×2 (09:00→20:14)
--- NOTE | 2019-02-03 09:30 | NUR ---
PT RESTING IN BED. ABLE TO MAKE NEEDS KNOWN. RESPIRATIONS EVEN AND UNLABORED WITH NO SOB OR RESPIRATORY DISTRESS. SKIN WARM AND DRY TO TOUCH. SAFETY MEASURES IN PLACE. WILL CONTINUE TO MONITOR.
--- NOTE | 2019-02-03 10:00 | NUR ---
PT TAKEN TO PROCEDURE TO GET DRESSINGS REMOVED AND CHANGED. PT RESTING IN BED. ABLE TO MAKE NEEDS KNOWN. RESPIRATIONS EVEN AND UNLABORED WITH NO SOB OR RESPIRATORY DISTRESS. SKIN WARM AND DRY TO TOUCH. SAFETY MEASURES IN PLACE. WILL CONTINUE TO MONITOR.
[2019-02-03] MEDS ORDERED: POTASSIUM CHLORIDE 20% 40 MEQ/15 ML UDC PO SCH (11:05)
[2019-02-03] MEDS ORDERED: MIDAZOLAM 2 MG/2 ML VIAL ONE (11:27)
[2019-02-03] MEDS ORDERED: fentaNYL 0.05 MG/ML VIAL ONE (11:28)
[2019-02-03] MEDS ORDERED: PROPOFOL 200 MG/20 ML VIAL IV ONE (11:33)
[2019-02-03] MEDS ORDERED: DESFLURANE 240 ML BTL INH ONE (11:33)
[2019-02-03] MEDS ORDERED: HYDROmorphone 1 MG/ML AMP IVP PRN (11:55)
[2019-02-03] MEDS ORDERED: ONDANSETRON 4 MG/2 ML VIAL IVP PRN (11:55)
[2019-02-03 12:00] VITALS: BP 114/76
[2019-02-03] MEDS ORDERED: MEPERIDINE 25 MG/ML SYR ONE (12:44)
[2019-02-03] MEDS ORDERED: MEPERIDINE 25 MG/ML SYR IM PRN (12:55)
[2019-02-03] MEDS: THERAHONEY GEL 42.5 GM TP SCH (13:00)
--- NOTE | 2019-02-03 13:20 | NUR ---
PT RETURNED FROM OR AND IS IN BED. ABLE TO MAKE NEEDS KNOWN. RESPIRATIONS EVEN AND UNLABORED WITH NO SOB OR RESPIRATORY DISTRESS. SKIN WARM AND DRY TO TOUCH. SAFETY MEASURES IN PLACE. WILL CONTINUE TO MONITOR.
[2019-02-03] MEDS: VANCOMYCIN 1,000 MG in DEXTROSE 5% 250 ML IV SCH (14:34)
--- NOTE | 2019-02-03 14:35 | NUR ---
HOURLY ROUNDING. PT RESTING IN BED WITH MOTHER AT BEDSIDE. ABLE TO MAKE NEEDS KNOWN. RESPIRATIONS EVEN AND UNLABORED WITH NO SOB OR RESPIRATORY DISTRESS. SKIN WARM AND DRY TO TOUCH. SAFETY MEASURES IN PLACE. WILL CONTINUE TO MONITOR.
[2019-02-03] MEDS: MICAFUNGIN SODIUM 100 MG in NACL 0.9% 100 ML IV SCH (15:56)
[2019-02-03 16:00] VITALS: BP 112/72
--- NOTE | 2019-02-03 16:05 | NUR ---
02/03/19 RD FOLLOW UP COMPLETED PLEASE REFER TO NUTRITION ASSESSMENT UNDER CARE ACTIVITY FOR ESTIMATED NUTRITIONAL NEEDS. 1. CONTINUE REGULAR DIET W/ELECARE JR CHOCOLATE SHAKE TID 2. ENCOURAGE FAMILY TO BRING SUPPLEMENTS AND FOOD FROM HOME IF APPROPRIATE PER MD 3. RECOMMEND INCREASING TPN INFUSION WHEN MEDICALLY APPROPRIATE TO MEET 75% OF ESTIMATED NEEDS -CURRENT TPN D15%, AA 3%, LIPIDS 10% 100 ML AT 70 ML/HR WHICH PROVIDES 1157 KCAL AND 50 GM OF PROTEIN/DAY 4. ENCOURAGE INCREASING PO INTAKE 5. RECOMMEND ENSURE PLANT WHEN AVAILABLE 6. RD WILL FOLLOW UP 2-3 DAYS, HIGH RISK AIXA DOYLE RD
--- NOTE | 2019-02-03 17:05 | NUR ---
ADMINISTERED MEDICATION PRESCRIBED PER MD ORDER. PT TOLERATED WELL. MEDICATION EDUCATION PERFORMED. PT ABLE TO TEACH BACK. NO COMPLICATIONS AT THIS TIME. SAFETY MEASURES IN PLACE. WILL CONTINUE TO MONITOR
--- NOTE | 2019-02-03 19:25 | NUR ---
ENDORSED TO NIGHTSHIFT. PT LYING IN BED WITH FAMILY AT BEDSIDE. RESPIRATIONS EVEN AND UNLABORED WITH NO SOB OR RESPIRATORY DISTRESS. PT IS STABLE. SAFETY MEASURES IN PLACE.
--- NOTE | 2019-02-03 19:30 | NUR ---
REPORT RECEIVED FROM AM NURSE AT BEDSIDE. PT IN STABLE CONDITION. AAOX4. INTRODUCED SELF TO PT AND FAMILY. BOARD UPDATED. NO COMPLAINTS OF PAIN. ALREADY MEDICATED. NO SOB. AFEBRILE. PT IS BEDBOUND. PT HAS COLOSTOMY. IV SITE L UA MIDLINE RUNNING TPN@70ML/HR PATENT AND INTACT. SKIN WARM, DRY, AND NOT INTACT DUE TO MULTIPLE WOUNDS. SEE WOUND NOTES. BED LOCKED IN LOW POSITION. CALL CONN WITHIN REACH. SAFETY PRECAUTION IN PLACE. ALL NEEDS MET AT THIS TIME.
[2019-02-03 20:00] VITALS: BP 104/66
[2019-02-03] MEDS: MULTIVITAMIN-12 10 ML in DEXTROSE 50% 760 ML, AMINO ACIDS 8.5% 760 ML, FAT EMULSION 20%... IV SCH ×4 (20:09)
--- NOTE | 2019-02-03 20:09 | NUR ---
TPN HUNG AND RUNNING. BS 74. NO INSULIN COVERAGE NEEDED.
--- NOTE | 2019-02-03 20:52 | NUR ---
DILAUDID GIVEN FOR 8/10 GENERALIZED PAIN. PT TOLERATED WELL.
--- NOTE | 2019-02-03 23:15 | NUR ---
PT AWAKE AND ALERT WATCHING VIDEOS ON HIS TABLET. NO S/S OF DISTRESS NOTED. WILL CONTINUE TO MONITOR.
[2019-02-04] VITALS: BP 113/70
[2019-02-04] MEDS: HYDROmorphone PFS 2 MG/ML SYR IVP PRN ×7 (00:30→21:31)
--- NOTE | 2019-02-04 00:30 | NUR ---
DILAUDID GIVEN FOR 8/10 GENERALIZED PAIN. PT TOLERATED WELL.
--- NOTE | 2019-02-04 01:15 | NUR ---
COLOSTOMY BAG CHANGED.
[2019-02-04] MEDS: TOBRAMYCIN 80 MG in DEXTROSE 5% 100 ML IV SCH ×2 (02:32→14:35)
--- NOTE | 2019-02-04 02:32 | NUR ---
TOBRAMYCIN HUNG AND RUNNING. PT TOLERATING WELL.
--- NOTE | 2019-02-04 03:37 | NUR ---
DILAUDID GIVEN FOR 8/10 GENERALIZED PAIN. PT TOLERATED WELL.
[2019-02-04 04:00] VITALS: BP 107/64
--- NOTE | 2019-02-04 05:00 | NUR ---
PT SLEEPING COMFORTABLY BUT AROUSABLE. NO S/S OF DISTRESS NOTED. WILL CONTINUE TO MONITOR.
--- NOTE | 2019-02-04 06:45 | NUR ---
DILAUDID GIVEN FOR 8/10 GENERALIZED PAIN. PT TOLERATED WELL.
--- NOTE | 2019-02-04 07:00 | NUR ---
PT WATCHING SHOWS ON HIS TABLET. PT IN STABLE CONDITION.
[2019-02-04 07:02] LABS: ANION GAP 13.5 (8-16); CARBON DIOXIDE 23.1 mmol/L (21-32); CREATININE 0.7 mg/dL (0.7-1.3); POTASSIUM 3.6 mmol/L (3.5-5.1)
[2019-02-04 07:06] LABS: MAGNESIUM 1.8 mg/dL (1.8-2.4); PHOSPHORUS 2.7 mg/dL (2.5-4.9)
[2019-02-04 07:07] LABS: BASOPHILS # (AUTO) 0.1 K/uL (0.00-0.22); BASOPHILS % (AUTO) 0.8 % (0.0-2.0); EOSINOPHILS # (AUTO) 0.6 K/uL (0-0.4); EOSINOPHILS % (AUTO) 8.3 % (0.0-4.0); HEMATOCRIT 23.9 % (36-52); HEMOGLOBIN 7.6 g/dL (12.0-18.0); LYMPHOCYTES # (AUTO) 2.2 K/uL (2.0-11.5); LYMPHOCYTES % (AUTO) 28.3 % (20.5-51.1); MEAN CORPUSCULAR HEMOGLOBIN 27 pg (27-31); MEAN CORPUSCULAR HGB CONC 32 g/dL (33-37); MEAN CORPUSCULAR VOLUME 86.4 fL (80-94); MONOCYTES # (AUTO) 1.1 K/uL (0.8-1.0); MONOCYTES % (AUTO) 13.5 % (1.7-9.3); NEUTROPHILS # (AUTO) 3.8 K/uL (1.8-7.7); NEUTROPHILS % (AUTO) 49.1 % (42.2-75.2); PLATELET COUNT (AUTO) 360 K/uL (140-450); RED BLOOD CELL COUNT(AUTO) 2.77 MIL/uL (4.20-6.10); RED CELL DISTRIBUTION WIDTH 16.6 % (11.6-13.7); WHITE BLOOD COUNT (AUTO) 7.8 K/uL (4.8-10.8)
--- NOTE | 2019-02-04 07:10 | NUR ---
RECIEVED BEDSIDE REPORT FROM NIGHTSHIFT NURSE. PT RESTING IN BED UPON ARRIVAL. ABLE TO MAKE NEEDS KNOWN. SKIN WARM AND DRY TO TOUCH. NO COMPLAINTS OR CONCERNS AT THIS TIME. PICC LINE DOUBLE LUMEN IS CLEAN, DRY, AND INTACT. NO COMPLICATIONS AT THIS TIME. SAFETY MEASURES IN PLACE. WILL CONTINUE TO MONITOR.
[2019-02-04 08:00] VITALS: BP 110/57
[2019-02-04] MEDS: BLOOD GLUCOSE MONITORING 1 DEV DEV FS SCH ×2 (09:00→21:00)
--- NOTE | 2019-02-04 09:00 | NUR ---
PT RESTING IN BED. ABLE TO MAKE NEEDS KNOWN. RESPIRATIONS EVEN AND UNLABORED WITH NO SOB OR RESPIRATORY DISTRESS. BS RESULTED IN 88. NO INSULIN COVERAGE NEEDED. SAFETY MEASURES IN PLACE. WILL CONTINUE TO MONITOR
--- NOTE | 2019-02-04 10:49 | NUR ---
PT CALLED AND COMPLAINED OF PAIN. ADMINISTERED PAIN MEDICATION PRESCRIBED PER MD ORDER. PT TOLERATED WELL. MEDICATION EDUCATION PERFORMED. PT UNDERSTOOD AND COULD TEACH BACK. SAFETY MEASURES IN PLACE
[2019-02-04 12:00] VITALS: BP 122/64
[2019-02-04] MEDS: VANCOMYCIN 1,000 MG in DEXTROSE 5% 250 ML IV SCH (12:34)
--- NOTE | 2019-02-04 12:34 | NUR ---
ADMINISTERED MEDICATION PRESCRIBED PER MD ORDER. PT TOLERATED WELL. NO COMPLICATIONS AT THIS TIME. MEDICATION EDUCATION PERFORMED. PT VERBALIZED UNDERSTANDING AND COULD TEACH BACK. SAFETY MEASURES IN PLACE
[2019-02-04] MEDS: THERAHONEY GEL 42.5 GM TP SCH (13:00)
--- NOTE | 2019-02-04 13:17 | NUR ---
PT RESTING IN BED UPON ARRIVAL. RESPIRATIONS EVEN AND UNLABORED WITH NO SOB OR RESPIRATORY DISTRESS. ABLE TO MAKE NEEDS KNOWN. NO COMPLAINTS OR CONCERNS AT THIS TIME. PT REFUSES TO BE TURNED AND REFUSED THERAHONEY GEL. PT EDUCATED ON NECESSITY OF TURNING AND DRESSING CHANGE. PT STILL REFUSED ON BEING TURNED AND CHANGING THE DRESSING. SAFETY MEASURES IN PLACE. WILL CONTINUE TO MONITOR.
--- NOTE | 2019-02-04 14:35 | NUR ---
ADMINISTERED MEDICATION PRESCRIBED PER MD ORDER. PT TOLERATED WELL. MEDICATION EDUCATION PERFORMED. PT ABLE TO TEACH BACK. PT CALLED AND SAID HE WAS IN SEVERE PAIN. PRN PAIN MEDICATION ADMINISTERED PER MD ORDER. PT TOLERATED WELL. MEDICATION EDUCATION PERFORMED. PT VERBALIZED UNDERSTANDING AND COULD TEACH BACK. SAFETY MEASURES IN PLACE. WILL CONTINUE TO MONITOR
[2019-02-04 16:00] VITALS: BP 108/72
[2019-02-04] MEDS: MICAFUNGIN SODIUM 100 MG in NACL 0.9% 100 ML IV SCH (16:14)
--- NOTE | 2019-02-04 16:15 | NUR ---
ADMINISTERED MEDICATION PRESCRIBED PER MD ORDER. PT TOLERATED WELL. NO COMPLICATIONS OR CONCERNS. MEDICATION EDUCATION PERFORMED. PT VERBALIZED UNDERSTANDING AND COULD TEACH BACK. SAFETY MEASURES IN PLACE. WILL CONTINUE TO MONITOR
[2019-02-04] MEDS: ONDANSETRON 4 MG/2 ML VIAL IVP PRN ×2 (16:52→23:50)
--- NOTE | 2019-02-04 16:52 | NUR ---
PT CALLED AND COMPLAINED OF NAUSEA. PRN ANTI-NAUSEA MEDICATION ADMINISTERED PRESCRIBED PER MD ORDER. PT TOLERATED WELL. MEDICATION EDUCATION PERFORMED. PT TOLERATED WELL AND COULD VERBALIZE UNDERSTANDING. NO SIGNS OF DISTRESS NOTED. SAFETY MEASURES IN PLACE. WILL CONTINUE TO MONITOR
--- NOTE | 2019-02-04 18:00 | NUR ---
HOURLY ROUNDING. PT RESTING IN BED WITH FAMILY AT BEDSIDE. ABLE TO MAKE NEEDS KNOWN. RESPIRATIONS EVEN AND UNLABORED WITH NO SOB OR RESPIRATORY DISTRESS. SKIN WARM AND DRY TO TOUCH. SAFETY MEASURES IN PLACE. WILL CONTINUE TO MONITOR
--- NOTE | 2019-02-04 19:10 | NUR ---
RECEIVED ENDORSEMENT FROM PA[facility] DAY[facility] NURSE AT BEDSIDE FOR CONTINUITY OF CARE, PT IN STABLE CONDITION.
--- NOTE | 2019-02-04 19:10 | NUR ---
ENDORSED TO NIGHTSHIFT NURSE AT BEDSIDE. PT RESTING IN BED WITH FAMILY AT BEDSIDE. ABLE TO MAKE NEEDS KNOWN. RESPIRATIONS EVEN AND UNLABORED WITH NO SOB OR RESPIRATORY DISTRESS. SKIN WARM AND DRY TO TOUCH. PT IS STABLE
[2019-02-04] MEDS: MULTIVITAMIN-12 10 ML in DEXTROSE 50% 760 ML, AMINO ACIDS 8.5% 760 ML, FAT EMULSION 20%... IV SCH ×4 (20:00)
--- NOTE | 2019-02-04 20:00 | NUR ---
PT IN BED AOX 4 MIDLINE ON UPPER LEFT ARM INTACT AND RUNNING N/S AT 100MLS/HR. PT COMPLETED TPN, NEW BAG HUNG AND RUNNING 70MLS/HR ORDERED. PT COLOSTOMY BAG INTACT, AND PT SAID THAT THERE WASN'T MUCH INSIDE THE BAG. V/S FOLLOWS: T 97.8 P 111 R 18 ON R/A B/P 100/62 02 99% ON ROOM AIR. PT DRESSINGS INTACT. PT REFUSES TO BE TURNED AND SAID HE CAN TURN HIMSELF. ALL FALLS PRECAUTIONS IN PLACE AND ALL REQUESTED NEEDS ATTENDED BY STAFF.
[2019-02-04 21:00] VITALS: BP 100/62
--- NOTE | 2019-02-04 21:35 | NUR ---
PT IN BED, PICC LINE INTACT AND RUNNING TPN ORDERED. FINGERSTICK IS 76, NO HUMALOG COVERAGE NEEDED. PT FENTANYL PATCHES, DUE TO BE CHANGED, OLD PATCHES ON RIGHT AND LEFT UPPER CHEST BY CLAVICLE BONE. PT WANTED PATCHES TO BE ON SHOULDERS NEXT TO OLD PATCHES DUE TO PATIENT HAVING MAY BURNED AREAS. NEW PATCHES PLACED ON RIGHT AND LEFT EDGE OF CHEST NEAR ARM PITS. OLD PATCHES DISPOSED OF IN SHARPS CONTAINERS. PT ALSO REQUESTED DILAUDID FOR 8/10 PAIN IN LEGS AND BURN WOUNDS. ALL REQUESTED NEEDS ATTENDED BY STAFF.
[2019-02-04] MEDS: fentaNYL 0.075 MG/HR PATCH TD SCH (21:55)
--- NOTE | 2019-02-04 23:50 | NUR ---
PT IN BED, HE REQUESTED ZOFRAN FOR 150MLS OF EMESIS/REGURGITATION. PT V/S FOLLOWS: T 97.4 P 92 R 18 B/P 127/81 02 96% 0N ROOM AIR. WILL MONITOR FOR EFFECT, ALL REQUESTED NEEDS ATTENDED BY STAFF. PT DECLINED TO BE TURNED AND REPOSITIONED. PT DID VOID 300MLS OF LIGHT NANY URINE. ALL FALLS PRECAUTIONS IN PLACE AND CALL CONN IN PLACE.
[2019-02-05] VITALS: BP 127/81
[2019-02-05] MEDS: HYDROmorphone PFS 2 MG/ML SYR IVP PRN ×4 (01:35→16:40)
--- NOTE | 2019-02-05 02:00 | NUR ---
PT C/O OF SEVERE PAIN IN LEGS AND BURN WOUNDS, PT GIVEN ORDERED IV DILAUDID FOR BREAK THROUGH PAIN, PT DECLINED TO BE TURNED AND REPOSITIONED. PT ALSO DECLINED FOR WOUND CARE TO BE GIVEN . ALL FALLS PRECAUTIONS IN PLACE. TPN CONTINUES TP RUN ORDERED AND N/S CONTINUES AT 60MLS/HR. CALL CONN IN REACH.
[2019-02-05 04:00] VITALS: BP 113/76
--- NOTE | 2019-02-05 04:00 | NUR ---
PT IN BED TPN RUNNING AT 70MLS/HR ORDERED. N/S CONTINUES AT 100MLS/HR. MIDLINE INTACT AND ASYMPTOMATIC ALL FALLS PRECAUTIONS IN PLACE V/S FOLLOWS: T 97.6 P 112 R 18 B/P 113/76 02 99% ON ROOM AIR. ALL FALLS AND CONTACT PRECAUTIONS IN PLACE AND CALL CONN IN REACH.
[2019-02-05] MEDS: ONDANSETRON 4 MG/2 ML VIAL IVP PRN ×2 (06:47→11:42)
--- NOTE | 2019-02-05 07:00 | NUR ---
PT C/O SEVERE PAIN WAS GIVEN ORDERED DILAUDID IVP. HE WAS ALSO NOTED COUGHING AND GAGING, PT OFFERED ZOFRAN FOR NAUSEA AND HE WAS GIVEN IT IVP ORDERED. COLOSTOMY BAG INTACT AND DRAINED 10MLS OF THICK CLUMPY STOOL. PT VOIDED A TOTAL OF 700MLS. BLOOD DRAWS DONE AT BEDSIDE BY LAB. PT DECLINES BLOOD DRAW FROM THE MIDLINE. WILL ENDORSE POC AT BEDSIDE TO AM SHIFT NURSE.
--- NOTE | 2019-02-05 07:10 | NUR ---
RECEIVED REPORT FROM NIGHT NURSE, PT IS RESTING IN BED, PT IS STABLE, TPN RUNNING AT 70 ML, CALL LIGHT WITHIN REACH. Addendum: 02/05/19 at 0957 by Janette Bautista RN TPN WAS NOT RUNNING AT 70, IT WAS RUNNING AT 700 ML/H
[2019-02-05 07:41] LABS: BASOPHILS # (AUTO) 0.1 K/uL (0.00-0.22); BASOPHILS % (AUTO) 0.7 % (0.0-2.0); EOSINOPHILS # (AUTO) 0.5 K/uL (0-0.4); EOSINOPHILS % (AUTO) 4.8 % (0.0-4.0); HEMATOCRIT 26.7 % (36-52); HEMOGLOBIN 8.4 g/dL (12.0-18.0); LYMPHOCYTES # (AUTO) 2.3 K/uL (2.0-11.5); LYMPHOCYTES % (AUTO) 22.4 % (20.5-51.1); MEAN CORPUSCULAR HEMOGLOBIN 28 pg (27-31); MEAN CORPUSCULAR HGB CONC 32 g/dL (33-37); MEAN CORPUSCULAR VOLUME 87.1 fL (80-94); MONOCYTES # (AUTO) 1.3 K/uL (0.8-1.0); MONOCYTES % (AUTO) 12.6 % (1.7-9.3); NEUTROPHILS # (AUTO) 6.1 K/uL (1.8-7.7); NEUTROPHILS % (AUTO) 59.5 % (42.2-75.2); PLATELET COUNT (AUTO) 438 K/uL (140-450); RED BLOOD CELL COUNT(AUTO) 3.06 MIL/uL (4.20-6.10); WHITE BLOOD COUNT (AUTO) 10.3 K/uL (4.8-10.8)
[2019-02-05 07:56] LABS: ANION GAP 13.4 (8-16); CREATININE 0.7 mg/dL (0.7-1.3); MAGNESIUM 1.7 mg/dL (1.8-2.4); PHOSPHORUS 4.6 mg/dL (2.5-4.9); POTASSIUM 3.4 mmol/L (3.5-5.1)
[2019-02-05 08:00] VITALS: BP 118/75
[2019-02-05] MEDS: BLOOD GLUCOSE MONITORING 1 DEV DEV FS SCH ×2 (09:13→20:18)
--- NOTE | 2019-02-05 09:58 | NUR ---
WENT TO DO PT VITAL SIGNS AT 0830, TPN WAS BEEPING AND WAS TURNED OFF IT WAS RUNNING EMPTYING. THE RATE WAS SET AT 700 ML/H, CALL PHARMACY AND NOTIFIED THEM THAT TPN WAS FINISHED.
[2019-02-05] MEDS ORDERED: MAG SULF 2000 MG/WATER PREMIX 50 ML IV ONE (10:25)
[2019-02-05] MEDS ORDERED: POTASSIUM CHLORIDE 10 MEQ TABER PO ONE (10:25)
[2019-02-05 11:49] LABS: ANION GAP 9.3 (8-16); CARBON DIOXIDE 25.3 mmol/L (21-32); CREATININE 0.6 mg/dL (0.7-1.3); POTASSIUM 3.6 mmol/L (3.5-5.1)
[2019-02-05 12:00] VITALS: BP 117/66
[2019-02-05 12:00] LABS: MAGNESIUM 2.2 mg/dL (1.8-2.4)
[2019-02-05] MEDS ORDERED: DEXTROSE 10% 1,000 ML IV SCH ×2 (12:40→13:30)
[2019-02-05] MEDS: THERAHONEY GEL 42.5 GM TP SCH (13:00)
[2019-02-05] MEDS ORDERED: DEXTROSE 50% 50 ML SYR IVP SCH (13:22)
--- NOTE | 2019-02-05 13:55 | NUR ---
pt refused therahoney and wound assessment.
--- NOTE | 2019-02-05 14:25 | NUR ---
ADMINISTER DEXTROSE 10 PER ORDER. PT TOLERATING WELL, PT IS STABLE, CALL LIGHT WITHIN REACH.
[2019-02-05 16:00] VITALS: BP 96/57
--- NOTE | 2019-02-05 16:06 | NUR ---
02/05/19 RD FOLLOW UP COMPLETED PLEASE REFER TO NUTRITION ASSESSMENT UNDER CARE ACTIVITY FOR ESTIMATED NUTRITIONAL NEEDS. 1. CONTINUE REGULAR DIET W/ELECARE JR CHOCOLATE SHAKE TID 2. ENCOURAGE FAMILY TO BRING SUPPLEMENTS AND FOOD FROM HOME IF APPROPRIATE PER MD 3. WHEN PT IS MEDICALLY STABLE, RECOMMEND INCREASING TPN INFUSION WHEN MEDICALLY APPROPRIATE TO MEET 75% OF ESTIMATED NEEDS -CURRENT TPN D15%, AA 3%, LIPIDS 10% 100 ML AT 70 ML/HR WHICH PROVIDES 1157 KCAL AND 50 GM OF PROTEIN/DAY 4. ENCOURAGE INCREASING PO INTAKE 5. RECOMMEND ENSURE PLANT WHEN AVAILABLE 6. IF PT PO INTAKE REMAIN POOR, CONSIDER USING TPN MAJOR SOURCE OF NUTRITION. 7. RD WILL FOLLOW UP 2-3 DAYS, HIGH RISK AIXA DOYLE RD
--- NOTE | 2019-02-05 16:40 | NUR ---
PT CALLED AND COMPLAINED OF SEVERE PAIN. PRN PAIN MEDICATION ADMINISTERED PRESCRIBED PER MD ORDER. PT TOLERATED WELL. MEDICATION EDUCATION PERFORMED. PT VERBALIZED UNDERSTANDING. SAFETY MEASURES IN PLACE
[2019-02-05] MEDS: MICAFUNGIN SODIUM 100 MG in NACL 0.9% 100 ML IV SCH (16:53)
--- NOTE | 2019-02-05 18:30 | NUR ---
PT RESTING IN BED, RESPIRATIONS ARE EVEN AND UNLABORED ON ROOM AIR. PT'S MOTHER IN THE ROOM, CALL LIGHT WITHIN REACH.
--- NOTE | 2019-02-05 19:15 | NUR ---
RECEIVED PATIENT FROM [facility] NURSE. TELE PATIENT. RESTING IN BED COMFORTABLY. NO C/O PAIN. NO S/SX ACUTE DISTRESS. MOTHER AT BEDSIDE. PLAN OF CARE DISCUSSED, VERBALIZED UNDERSTANDING. CALL LIGHT WITHIN REACH. WILL CONTINUE TO MONITOR.
[2019-02-05 20:00] VITALS: BP 99/55
[2019-02-05] MEDS: MULTIVITAMIN-12 10 ML in DEXTROSE 50% 760 ML, AMINO ACIDS 8.5% 760 ML, FAT EMULSION 20%... IV SCH ×4 (20:18)
--- NOTE | 2019-02-05 21:18 | NUR ---
BLOOD SUGAR WAS CHECKED RESULT 87. ENCOURAGED TO EAT. MOM MADE AWARE AND SHE SAID PT CAN'T EAT SANDWICH. HE PREFER TO HAVE SOFT FOOD.
--- NOTE | 2019-02-05 22:30 | NUR ---
MADE ROUNDS . PT IS ASLEEP. NO S/S OF ANY DISCOMFORT NOTED. SOPHY MONITOR HR-95/MIN. WILL CONTINUE TO MONITOR.
--- NOTE | 2019-02-05 23:45 | NUR ---
MADE ROUNDS. PT IS STILL ASLEEP. NO S/S OD=F ANY DISCOMFORT NOR PAIN NOTED . WILL CONTINUE TO MONITOR.
[2019-02-06 00:20] VITALS: BP_SYST 103; BP_SYST 91; BP_DIAS 54; BP_DIAS 63
[2019-02-06] MEDS: HYDROmorphone PFS 2 MG/ML SYR IVP PRN ×6 (00:44→22:26)
--- NOTE | 2019-02-06 00:44 | NUR ---
PATIENT C/O ACHING PAIN 8/10 TO RIGHT LEG/HIP. MEDICATED ORDERED. CALL LIGHT WITHIN REACH. WILL CONTINUE TO MONITOR.
--- NOTE | 2019-02-06 01:44 | NUR ---
PAIN REASSESSED AT 210, TOLERABLE. PATIENT AWAKE IN BED, WATCHING TV. NO S/SX ACUTE DISTRESS. CALL LIGHT WITHIN REACH. WILL CONTINUE TO MONITOR.
--- NOTE | 2019-02-06 03:07 | NUR ---
MADE ROUNDS. PATIENT AWAKE AND STABLE. NO S/SX ACUTE DISTRESS NOTED. CALL LIGHT WITHIN REACH. WILL CONTINUE TO MONITOR.
[2019-02-06 03:37] LABS: BASOPHILS % (AUTO) 0.5 % (0.0-2.0); HEMATOCRIT 20.4 % (36-52); NEUTROPHILS # (AUTO) 4.7 K/uL (1.8-7.7)
[2019-02-06 04:00] VITALS: BP 98/56
[2019-02-06 04:03] LABS: EOSINOPHILS # (AUTO) 0.5 K/uL (0-0.4); EOSINOPHILS % (AUTO) 6.3 % (0.0-4.0); LYMPHOCYTES # (AUTO) 2.2 K/uL (2.0-11.5); LYMPHOCYTES % (AUTO) 26.2 % (20.5-51.1); MEAN CORPUSCULAR HEMOGLOBIN 28 pg (27-31); MEAN CORPUSCULAR HGB CONC 32 g/dL (33-37); MEAN CORPUSCULAR VOLUME 87.3 fL (80-94); MONOCYTES % (AUTO) 11.6 % (1.7-9.3); NEUTROPHILS % (AUTO) 55.4 % (42.2-75.2); PLATELET COUNT (AUTO) 401 K/uL (140-450); RED BLOOD CELL COUNT(AUTO) 2.34 MIL/uL (4.20-6.10); RED CELL DISTRIBUTION WIDTH 17.1 % (11.6-13.7); WHITE BLOOD COUNT (AUTO) 8.5 K/uL (4.8-10.8)
[2019-02-06 04:09] LABS: HEMOGLOBIN 6.4 g/dL (12.0-18.0)
[2019-02-06 04:23] LABS: ANION GAP 12.2 (8-16); CARBON DIOXIDE 25.4 mmol/L (21-32); CREATININE 0.7 mg/dL (0.7-1.3); MAGNESIUM 2.1 mg/dL (1.8-2.4); PHOSPHORUS 4.5 mg/dL (2.5-4.9); POTASSIUM 3.6 mmol/L (3.5-5.1)
--- NOTE | 2019-02-06 04:28 | NUR ---
DR. KAUR CALLED BACK AND MADE AWARE OF THE LOW HGB AND HCT LEVEL, WITH ORDERS TO TRANSFUSE 2 UNITS PRBC.
--- NOTE | 2019-02-06 06:30 | NUR ---
STILL AWAITING FOR BLOOD TO BE READY FOR TRANSFUSION.
--- NOTE | 2019-02-06 07:10 | NUR ---
ENDORSED PATIENT TO AM SHIFT NURSE IN STABLE CONDITION.
--- NOTE | 2019-02-06 07:11 | NUR ---
RECEIVED PATIENT FROM NIGHTSHIFT NURSE AT BEDSIDE FOR CONTINUITY OF CARE. PATIENT ASLEEP COMFORTABLY, FLACC-0, RESPIRATIONS EVEN AND UNLABORED ON ROOM AIR. NO S/SX ACUTE DISTRESS NOTED. PT HAS LEFT MIDLINE DOUBLE LUMEN RUNNING TPN AT 70 CC/HR. SITE INTACT, ASYMPTOMATIC. PATIENT HAS COLOSTOMY BAG AND USES URINAL. PATIENT ON WOUND BED FOR CHRONIC WOUNDS. UPDATED BOARD. SAFETY AND ISOLATION PRECAUTIONS IN PLACE, CALL LIGHT WITHIN REACH. WILL CONTINUE TO MONITOR PATIENT.
[2019-02-06 08:30] VITALS: BP 97/58
--- NOTE | 2019-02-06 08:31 | NUR ---
PT MEDICATED WITH PRN IVP PAIN MEDICATION FOR 09/18 PAIN D/T CHRONIC WOUNDS. PATIENT TOLERATED IT WELL. BS 79. VS WNL. PATIENT MEDICATED FOR PAIN. PATIENT STATED HE DID NOT WANT BREAKFAST, HE WILL DRINK HIS GATORADE. PATIENT HAS NO COMPLAINTS AT THIS TIME. SAFETY AND ISOLATION PRECAUTION IN PLACE, CALL LIGHT WITHIN REACH, WILL CONTINUE TO MONITOR PATIENT.
[2019-02-06] MEDS: BLOOD GLUCOSE MONITORING 1 DEV DEV FS SCH ×2 (09:06→21:00)
--- NOTE | 2019-02-06 09:30 | NUR ---
PATIENT GIVEN CHICKEN BROTH REQUESTED. ALL NEEDS MET AT THIS TIME. SAFETY AND ISOLATION PRECAUTIONS IN PLACE, CALL LIGHT WITHIN REACH, WILL CONTINUE TO MONITOR PATIENT.
[2019-02-06 12:15] VITALS: BP 102/57
--- NOTE | 2019-02-06 12:23 | NUR ---
PATIENT MEDICATED WITH PRN PAIN MEDICATION REQUESTED. FAMILY AT BEDSIDE. PATIENT TOLERATED IT WELL. PATIENT HAS NO COMPLAINTS AT THIS TIME. SAFETY AND ISOLATION PRECAUTIONS IN PLACE, CALL LIGHT WITHIN REACH. WILL CONTINUE TO MONITOR PATIENT.
[2019-02-06] MEDS: THERAHONEY GEL 42.5 GM TP SCH (13:00)
--- NOTE | 2019-02-06 16:18 | NUR ---
PATIENT MEDICATED WITH PRN PAIN MEDICATION REQUESTED. FAMILY AT BEDSIDE. IVPB MEDICATION GIVEN. PATIENT TOLERATED IT WELL. SAFETY AND ISOLATION PRECAUTIONS IN PLACE, CALL LIGHT WITHIN REACH. WILL CONTINUE TO MONITOR PATIENT.
[2019-02-06] MEDS: MICAFUNGIN SODIUM 100 MG in NACL 0.9% 100 ML IV SCH (16:24)
[2019-02-06 16:25] VITALS: BP 103/61
--- NOTE | 2019-02-06 18:05 | NUR ---
SECOND BAG OF PRBC STARTED. PATIENT TOLERATING IT WELL. FAMILY MEMBERS AT BEDSIDE. NO COMPLAINTS AT THIS TIME. WILL CONTINUE TO MONITOR PATIENT.
--- NOTE | 2019-02-06 19:23 | NUR ---
REPORT GIVEN TO TUNNEL KILN FIRER NURSE AT BEDSIDE FOR CONTINUITY OF CARE. PATIENT IN STABLE CONDITION, MOTHER AT BEDSIDE.
--- NOTE | 2019-02-06 19:24 | NUR ---
RECEIVED PATIENT FROM AM NURSE AT BEDSIDE FOR CONTINUITY OF CARE. PT AWAKE, AOX 4. RESPIRATIONS EVEN AND UNLABORED ON ROOM AIR. NO S/SX ACUTE DISTRESS NOTED. PT HAS LEFT MIDLINE DOUBLE LUMEN RUNNING TPN SITE INTACT, ASYMPTOMATIC. WITH BLOOD (2ND BAG) RUNNING ON THE 2ND LUMEN OF THE SAME MIDLINE PATIENT. HAS COLOSTOMY BAG AND USES URINAL. PATIENT ON WOUND BED FOR CHRONIC WOUNDS. UPDATED BOARD. SAFETY AND ISOLATION PRECAUTIONS IN PLACE, CALL LIGHT WITHIN REACH. WILL CONTINUE TO MONITOR PATIENT.
--- NOTE | 2019-02-06 19:26 | NUR ---
PT GIVEN PAIN MEDS PT C./O OF 10/29 PAIN Addendum: 02/06/19 at 6277 by Hermelinda Townsend RN 10/19 PAIN
[2019-02-06] MEDS: MULTIVITAMIN-12 10 ML in DEXTROSE 50% 760 ML, AMINO ACIDS 8.5% 760 ML, FAT EMULSION 20%... IV SCH ×4 (19:32)
--- NOTE | 2019-02-06 19:35 | NUR ---
VITAL SIGNS TAKEN 98.3; 105; 18; 113/69; 100% 9/10 PAIN
[2019-02-06 20:00] VITALS: BP 113/69
--- NOTE | 2019-02-06 21:00 | NUR ---
COMPLETED 2ND BAG OF RED BLOOD CELLS
--- NOTE | 2019-02-06 21:15 | NUR ---
VS TAKEN POST TRANSFUSION 114/67; 94; 100%,97.7, 2/10 PAIN
[2019-02-07] VITALS: BP 114/68
--- NOTE | 2019-02-07 00:27 | NUR ---
CHECKED ON PT, PT C/O PAIN, MEDICATION ADMINISTERED, V/S TAKEN, PT TOLERATED WELL, NO DISTRESS NOTED, CALL LIGHT WITHIN REACH, WILL CONTINUE TO MONITOR. Addendum: 02/08/19 at 0425 by Alejandra Hooper RN WRONG DATE
[2019-02-07] MEDS: HYDROmorphone PFS 2 MG/ML SYR IVP PRN ×7 (02:34→21:44)
--- NOTE | 2019-02-07 02:34 | NUR ---
PT C/O OF GENERALIZED PAIN 10/19 ADMINISTERED MEDS
[2019-02-07 04:00] VITALS: BP 106/68
--- NOTE | 2019-02-07 06:00 | NUR ---
PT REFUSED BLOOD DRAW PER MANAGER PIPELINE. WILL ENDORSE TO NEXT SHIFT. WILL INFORM
--- NOTE | 2019-02-07 06:35 | NUR ---
CONVINCED BLOOD DRAW BECAUSE OF PLT AND HGB S/P BLOOD TRANSFUSION. IMPORTANT TOLD THE PT. PTAGREED.INFORMED FEATHERER AND THAT THEY WILL DRAW.
--- NOTE | 2019-02-07 06:41 | NUR ---
PT SLEEPY BUT EASILY AROUSABLE FOR BLOOD DRAW FOR HGB AND PLT S/P BLOOD TRANSFUSION. WILL ENDORSE TO NEXT SHIFT
--- NOTE | 2019-02-07 07:05 | NUR ---
RECEIVED PATIENT FROM NIGHTSHIFT NURSE AT BEDSIDE FOR CONTINUITY OF CARE. PATIENT ASLEEP, FLACC-0, RESPIRATIONS EVEN AND UNLABORED ON ROOM AIR. NO S/SX ACUTE DISTRESS NOTED. PT HAS LEFT MIDLINE DOUBLE LUMEN RUNNING TPN AT 70 CC/HR. SITE INTACT, ASYMPTOMATIC. PATIENT HAS COLOSTOMY BAG AND USES URINAL. PATIENT ON WOUND BED FOR CHRONIC WOUNDS. UPDATED BOARD. SAFETY AND ISOLATION PRECAUTIONS IN PLACE, CALL LIGHT WITHIN REACH. WILL CONTINUE TO MONITOR PATIENT.
[2019-02-07 07:36] LABS: BASOPHILS # (AUTO) 0.1 K/uL (0.00-0.22); BASOPHILS % (AUTO) 0.8 % (0.0-2.0); EOSINOPHILS # (AUTO) 0.7 K/uL (0-0.4); EOSINOPHILS % (AUTO) 9.2 % (0.0-4.0); HEMATOCRIT 26.6 % (36-52); HEMOGLOBIN 8.6 g/dL (12.0-18.0); LYMPHOCYTES # (AUTO) 2.4 K/uL (2.0-11.5); LYMPHOCYTES % (AUTO) 31.5 % (20.5-51.1); MEAN CORPUSCULAR HEMOGLOBIN 28 pg (27-31); MEAN CORPUSCULAR HGB CONC 32 g/dL (33-37); MEAN CORPUSCULAR VOLUME 87.2 fL (80-94); MONOCYTES % (AUTO) 12.9 % (1.7-9.3); NEUTROPHILS # (AUTO) 3.5 K/uL (1.8-7.7); NEUTROPHILS % (AUTO) 45.6 % (42.2-75.2); PLATELET COUNT (AUTO) 419 K/uL (140-450); RED BLOOD CELL COUNT(AUTO) 3.05 MIL/uL (4.20-6.10); WHITE BLOOD COUNT (AUTO) 7.8 K/uL (4.8-10.8)
[2019-02-07] MEDS ORDERED: ONDANSETRON 4 MG/2 ML VIAL ONE (08:08)
[2019-02-07] MEDS ORDERED: PROPOFOL 200 MG/20 ML VIAL IV ONE (08:08)
[2019-02-07] MEDS ORDERED: SEVOFLURANE 250 ML BTL INH ONE (08:08)
[2019-02-07 08:45] VITALS: BP 101/62
[2019-02-07 08:49] LABS: MAGNESIUM 2.1 mg/dL (1.8-2.4); PHOSPHORUS 4.7 mg/dL (2.5-4.9)
[2019-02-07 09:00] LABS: ANION GAP 12.3 (8-16); CARBON DIOXIDE 22.5 mmol/L (21-32); CREATININE 0.7 mg/dL (0.7-1.3); POTASSIUM 3.8 mmol/L (3.5-5.1)
[2019-02-07] MEDS: METHYLNALTREXONE SUBQ SCH (09:00)
[2019-02-07] MEDS ORDERED: RELISTOR SUBQ SCH (09:00)
--- NOTE | 2019-02-07 09:20 | NUR ---
PT MEDICATED WITH PRN IVP PAIN MEDICATION FOR 09/18 PAIN D/T CHRONIC WOUNDS. PATIENT TOLERATED IT WELL. BS 86. VS WNL. PATIENT MEDICATED FOR PAIN. SAFETY AND ISOLATION PRECAUTION IN PLACE, CALL LIGHT WITHIN REACH, WILL CONTINUE TO MONITOR PATIENT.
[2019-02-07] MEDS: BLOOD GLUCOSE MONITORING 1 DEV DEV FS SCH ×2 (09:38→21:57)
[2019-02-07 12:15] VITALS: BP 100/59
[2019-02-07] MEDS: THERAHONEY GEL 42.5 GM TP SCH (12:49)
[2019-02-07 15:30] VITALS: BP 99/61
--- NOTE | 2019-02-07 15:30 | NUR ---
PT MEDICATED WITH PRN IVP PAIN MEDICATION FOR 09/18 PAIN D/T CHRONIC WOUNDS. PATIENT TOLERATED IT WELL. VS WNL. PATIENT MEDICATED FOR PAIN. SAFETY AND ISOLATION PRECAUTION IN PLACE, CALL LIGHT WITHIN REACH, WILL CONTINUE TO MONITOR PATIENT.
--- NOTE | 2019-02-07 16:31 | NUR ---
PT MEDICATED WITH ORDERED MEDICATION. PATIENT TOLERATED IT WELL. PATIENT MEDICATED FOR PAIN AT 1530. HAS NO COMPLAINTS AT THIS TIME. SAFETY AND ISOLATION PRECAUTION IN PLACE, CALL LIGHT WITHIN REACH, WILL CONTINUE TO MONITOR PATIENT.
[2019-02-07] MEDS: MICAFUNGIN SODIUM 100 MG in NACL 0.9% 100 ML IV SCH (16:36)
--- NOTE | 2019-02-07 18:31 | NUR ---
PT MEDICATED WITH PRN IVP PAIN MEDICATION FOR 09/18 PAIN D/T CHRONIC WOUNDS. PATIENT TOLERATED IT WELL. FAMILY AT BEDSIDE. VS WNL. PATIENT MEDICATED FOR PAIN. SAFETY AND ISOLATION PRECAUTION IN PLACE, CALL LIGHT WITHIN REACH, WILL CONTINUE TO MONITOR PATIENT.
--- NOTE | 2019-02-07 19:09 | NUR ---
REPORT GIVEN TO ENGINEERING PATTERNMAKER NURSE AT BEDSIDE FOR CONTINUITY OF CARE. PATIENT SLEEPING COMFORTABLY IN BED.
--- NOTE | 2019-02-07 19:10 | NUR ---
RECEIVED BEDSIDE REPORT FROM DAY SHIFT NURSE CIRA RN, PT STABLE, NO DISTRESS NOTED, MIDLINE TO L UPPER ARM, PATENT INTACT, INFUSING WELL, PT ON ROOM AIR, NO SOB NOTED, NO C/O PAIN AT THIS MOMENT, COLOSTOMY BAG IN PLACE DRAINING BROWN LIQUID FECES, PT STABLE, NO DISTRESS NOTED, INITIAL ASSESSMENT DONE, ALL SAFETY PRECAUTION MET, CALL LIGHT WITHIN REACH, WILL CONTINUE TO MONITOR.
[2019-02-07] MEDS: MULTIVITAMIN-12 10 ML in DEXTROSE 50% 760 ML, AMINO ACIDS 8.5% 760 ML, FAT EMULSION 20%... IV SCH ×4 (19:50)
--- NOTE | 2019-02-07 19:50 | NUR ---
TPN CHANGED, TUBING CHANGED, PT TOLERATED WELL, NO DISTRESS NOTED, CALL LIGHT WITHIN REACH, WILL CONTINUE TO MONITOR.
[2019-02-07 20:00] VITALS: BP 123/70
--- NOTE | 2019-02-07 21:44 | NUR ---
PT C/O PAIN, PAIN MEDICATION ADMINISTERED PER DR ORDER, PT STABLE, NO DISTRESS NOTED, CALL LIGHT WITHIN REACH, WILL CONTINUE TO MONITOR.
[2019-02-07] MEDS: fentaNYL 0.075 MG/HR PATCH TD SCH (21:56)
--- NOTE | 2019-02-07 21:56 | NUR ---
FENTANYL PATCHES CHANGED, PT TOLERATED WELL, PT REQUESTED PRN PAIN MEDICATION DILAUDID WITH THE FENTANYL PATCH CHANGE, PT TOLERATED WELL, NO DISTRESS NOTED, CALL LIGHT WITHIN REACH, WILL CONTINUE TO MONITOR.
[2019-02-08] VITALS: BP 100/70
[2019-02-08] MEDS: HYDROmorphone PFS 2 MG/ML SYR IVP PRN ×7 (00:27→20:09)
--- NOTE | 2019-02-08 00:27 | NUR ---
CHECKED ON PT, PT C/O PAIN, MEDICATION ADMINISTERED, V/S TAKEN, PT TOLERATED WELL, NO DISTRESS NOTED, CALL LIGHT WITHIN REACH, WILL CONTINUE TO MONITOR.
--- NOTE | 2019-02-08 03:30 | NUR ---
PT C/O PAIN, PAIN MEDICATION ADMINISTERED, PT TOLERATED WELL, NO DISTRESS NOTED, CALL LIGHT WITHIN REACH, WILL CONTINUE TO MONITOR.
[2019-02-08 04:00] VITALS: BP 98/56
[2019-02-08 07:18] LABS: BASOPHILS # (AUTO) 0.1 K/uL (0.00-0.22); BASOPHILS % (AUTO) 0.7 % (0.0-2.0); EOSINOPHILS # (AUTO) 0.6 K/uL (0-0.4); EOSINOPHILS % (AUTO) 7.2 % (0.0-4.0); HEMATOCRIT 26.9 % (36-52); HEMOGLOBIN 8.8 g/dL (12.0-18.0); LYMPHOCYTES # (AUTO) 2.5 K/uL (2.0-11.5); LYMPHOCYTES % (AUTO) 30.9 % (20.5-51.1); MEAN CORPUSCULAR HEMOGLOBIN 28 pg (27-31); MEAN CORPUSCULAR HGB CONC 33 g/dL (33-37); MEAN CORPUSCULAR VOLUME 86.8 fL (80-94); MONOCYTES % (AUTO) 12.3 % (1.7-9.3); NEUTROPHILS # (AUTO) 3.9 K/uL (1.8-7.7); NEUTROPHILS % (AUTO) 48.9 % (42.2-75.2); PLATELET COUNT (AUTO) 458 K/uL (140-450); RED CELL DISTRIBUTION WIDTH 17.3 % (11.6-13.7)
[2019-02-08 07:21] LABS: ANION GAP 14.1 (8-16); CREATININE 0.7 mg/dL (0.7-1.3); POTASSIUM 4.1 mmol/L (3.5-5.1)
--- NOTE | 2019-02-08 07:26 | NUR ---
ENDORSED PT TO DAY SHIFT NURSE CARLA CAPPS, PT STABLE, NO DISTRESS NOTED, CALL LIGHT WITHIN REACH.
--- NOTE | 2019-02-08 07:27 | NUR ---
RECEIVED REPORT FROM THE MERCHANDISE HANDLER RN. PT HAS JUST BEEN MEDICATED FOR PAIN. PT IS RESTING COMFORTABLY. PT IS TO HAVE DRESSING CHANGE IN OR. CONSENT IS IN THE CHART. TPN IS INFUSING. TKO INFUSING. WILL CONTINUE TO MONITOR PT.
[2019-02-08 07:29] LABS: MAGNESIUM 2.1 mg/dL (1.8-2.4); PHOSPHORUS 5.3 mg/dL (2.5-4.9)
[2019-02-08 08:00] VITALS: BP 99/59
--- NOTE | 2019-02-08 08:04 | NUR ---
2 OR NURSES TAKING PT IN A WHEELCHAIR FOR THE OR FOR HIS DRESSING CHANGES UNDER ANESTHESIA. PT HAS BEEN MEDICATED AND V/S STABLE. PT IS IN STABLE CONDITION. WILL AWAIT HIS RETURN.
[2019-02-08] MEDS ORDERED: fentaNYL 0.05 MG/ML VIAL ONE (08:09)
[2019-02-08] MEDS: METHYLNALTREXONE SUBQ SCH (09:00)
[2019-02-08] MEDS: BLOOD GLUCOSE MONITORING 1 DEV DEV FS SCH ×2 (09:00→20:39)
[2019-02-08] MEDS: MULTIVITAMIN-12 10 ML in DEXTROSE 50% 760 ML, AMINO ACIDS 8.5% 760 ML, FAT EMULSION 20%... IV SCH ×8 (09:24→20:10)
--- NOTE | 2019-02-08 10:01 | NUR ---
PT RETURNED BACK ONTO THE FLOOR, IN EXCRUCIATING PAIN. VITAL SIGNS ELEVATED TO DO PAIN. 131/80 HR 114. ADMINISTERED DILAUDID. PT REFUSED THE RELISTOR AND THE BLOOD SUGAR CHECK. EMPTIED THE OSTOMY BAG. EMPTIED THE URINAL. PT IS NOW COMFORTABLE. WILL CONTINUE TO MONITOR PT.
[2019-02-08 12:00] VITALS: BP 124/80
[2019-02-08] MEDS: THERAHONEY GEL 42.5 GM TP SCH (13:00)
[2019-02-08 16:00] VITALS: BP 102/63
[2019-02-08] MEDS: MICAFUNGIN SODIUM 100 MG in NACL 0.9% 100 ML IV SCH (16:39)
--- NOTE | 2019-02-08 19:26 | NUR ---
ENDORSED PT TO THE TEAM ASSEMBLER NURSE. PT IS IN STABLE CONDITION. FAMILY AT BEDSIDE.
--- NOTE | 2019-02-08 19:27 | NUR ---
RECEIVED BEDSIDE REPORT FROM AM SHIFT NURSE. PATIENT LYING IN BED, AWAKE AND ALERT WITH FAMILY MEMBERS AT BEDSIDE. NO SOB OR DISTRESS NOTED. ON ROOM AIR. IV ACCESS ON LEFT UPPER ARM MIDLINE, PATENT AND INTACT. COLOSTOMY IN PLACE. MULTIPLE GONZALES AND PRESSURE SORES NOTED. INITIAL ASSESSMENT DONE. BOARD UPDATED. CALL LIGHT PLACED WITHIN PATIENT REACH. WILL CONTINUE TO MONITOR PATIENT.
--- NOTE | 2019-02-08 20:09 | NUR ---
PRN DILAUDID GIVEN AT THIS TIME PER PATIENT REQUEST WITH PAIN OF 9/10. PATIENT IS MOANING.
[2019-02-08 20:10] VITALS: BP 102/60
--- NOTE | 2019-02-09 00:01 | NUR ---
VITALS DONE AT THIS TIME. VISIBLE CHEST RISE AND FALL NOTED. CALL LIGHT WITHIN PATIENT REACH. WILL CONTINUE TO MONITOR PATIENT.
[2019-02-09 00:05] VITALS: BP 118/78
--- NOTE | 2019-02-09 01:32 | NUR ---
PATIENT REFUSED WOUND ASSESSMENT AND REPOSITIONING AT THIS TIME. CALL LIGHT PLACED WITHIN PATIENT REACH. WILL CONTINUE TO MONITOR PATIENT.
[2019-02-09] MEDS: HYDROmorphone PFS 2 MG/ML SYR IVP PRN ×6 (01:40→21:24)
--- NOTE | 2019-02-09 02:36 | NUR ---
VISUAL CHECK DONE AT THIS TIME. NO DISTRESS NOTED. CALL LIGHT WITHIN PATIENT REACH. WILL CONTINUE TO MONITOR PATIENT.
[2019-02-09 04:10] VITALS: BP 107/63
--- NOTE | 2019-02-09 04:15 | NUR ---
VITALS DONE AT THIS TIME. NO DISTRESS NOTED. WILL CONTINUE TO MONITOR PATIENT
--- NOTE | 2019-02-09 06:45 | NUR ---
PRN DILAUDID GIVEN PER PATIENT REQUEST. PATIENT WAS MOANING AND SAID HE WAS FEELING A STABBING PAIN 10/19. WILL CONTINUE TO MONITOR PATIENT.
[2019-02-09 07:00] LABS: ANION GAP 13.5 (8-16); CREATININE 0.7 mg/dL (0.7-1.3); MAGNESIUM 2.2 mg/dL (1.8-2.4); POTASSIUM 4.5 mmol/L (3.5-5.1)
[2019-02-09 07:08] LABS: BASOPHILS % (AUTO) 0.4 % (0.0-2.0); EOSINOPHILS # (AUTO) 0.4 K/uL (0-0.4); EOSINOPHILS % (AUTO) 4.3 % (0.0-4.0); HEMATOCRIT 27.4 % (36-52); LYMPHOCYTES # (AUTO) 2.2 K/uL (2.0-11.5); LYMPHOCYTES % (AUTO) 27.3 % (20.5-51.1); MEAN CORPUSCULAR HEMOGLOBIN 28 pg (27-31); MEAN CORPUSCULAR HGB CONC 33 g/dL (33-37); MEAN CORPUSCULAR VOLUME 86.3 fL (80-94); MONOCYTES # (AUTO) 1.2 K/uL (0.8-1.0); MONOCYTES % (AUTO) 15.2 % (1.7-9.3); NEUTROPHILS # (AUTO) 4.3 K/uL (1.8-7.7); NEUTROPHILS % (AUTO) 52.8 % (42.2-75.2); PLATELET COUNT (AUTO) 452 K/uL (140-450); RED BLOOD CELL COUNT(AUTO) 3.18 MIL/uL (4.20-6.10); RED CELL DISTRIBUTION WIDTH 16.9 % (11.6-13.7); WHITE BLOOD COUNT (AUTO) 8.1 K/uL (4.8-10.8)
--- NOTE | 2019-02-09 07:17 | NUR ---
PATIENT IN STABLE CONDITION. CALL LIGHT WITHIN PATIENT REACH. ENDORSED TO AM SHIFT NURSE FOR CONTINUITY OF CARE.
--- NOTE | 2019-02-09 07:17 | NUR ---
RECEIVED BED SIDE REPORT FROM CONTENT MANAGER NURSE, PATIENT IS IN STABLE CONDITION. WILL CONTINUE TO MONITOR
[2019-02-09 08:00] VITALS: BP 103/48
[2019-02-09] MEDS: METHYLNALTREXONE SUBQ SCH ×2 (09:00→10:20)
[2019-02-09] MEDS: BLOOD GLUCOSE MONITORING 1 DEV DEV FS SCH ×2 (09:00→21:00)
--- NOTE | 2019-02-09 10:21 | NUR ---
PATIENT C/O OF SEVERE PAIN, MEDICATIONS WILL BE GIVEN PER PROTOCOL
--- NOTE | 2019-02-09 11:00 | NUR ---
PATIENT SLEEPING AT THE BEDSIDE, VITAL SIGNS WITHIN NORMAL RANGE, NO RESP DISTRESS NOTED. WILL CONTINUE TO MONITOR
[2019-02-09 12:00] VITALS: BP 118/58
[2019-02-09] MEDS: THERAHONEY GEL 42.5 GM TP SCH (13:00)
--- NOTE | 2019-02-09 13:50 | NUR ---
PATIENT C/O OF SEVERE PAIN, MEDICATIONS WILL BE GIVEN PER PROTOCOL
--- NOTE | 2019-02-09 14:15 | NUR ---
PATIENT TALKING WITH MOTHER AT THE BEDSIDE, NO RESP DISTRESS NOTED. WILL CONTINUE TO MONITOR.
--- NOTE | 2019-02-09 15:05 | NUR ---
02/09/19 RD FOLLOW UP COMPLETED PLEASE REFER TO NUTRITION ASSESSMENT UNDER CARE ACTIVITY FOR ESTIMATED NUTRITIONAL NEEDS. 1. CONTINUE REGULAR DIET W/ELECARE JR CHOCOLATE SHAKE TID 2. ENCOURAGE FAMILY TO BRING SUPPLEMENTS AND FOOD FROM HOME IF APPROPRIATE PER MD 3. RECOMMEND INCREASING TPN INFUSION WHEN MEDICALLY APPROPRIATE TO MEET 75% OF ESTIMATED NEEDS -CURRENT TPN D15%, AA 3%, LIPIDS 10% 100 ML AT 70 ML/HR WHICH PROVIDES 1158.4 KCAL AND 50 GM OF PROTEIN/DAY 4. ENCOURAGE INCREASING PO INTAKE 5. CONTINUE ENSURE PLANT TID AND MONITOR AND ENCOURAGE INTAKE OF SUPPLEMENT 6. RD WILL FOLLOW UP 2-3 DAYS, HIGH RISK AIXA DOYLE RD
[2019-02-09 16:00] VITALS: BP 112/66
--- NOTE | 2019-02-09 16:51 | NUR ---
PATIENT C/O OF SEVERE PAIN, MEDICATIONS WILL BE GIVEN PER PROTOCOL,
--- NOTE | 2019-02-09 19:05 | NUR ---
ENDORSED TO FIRE CONTROL OFFICER NURSE, PATIENT IN STABLE CONDITION, WITH MOTHER AND NEPHEW AT THE BEDSIDE, EATING DINNER.
--- NOTE | 2019-02-09 19:06 | NUR ---
RECEIVED BEDSIDE REPORT FROM AM SHIFT NURSE. PATIENT IS LYING IN BED AWAKE AND ALERT WITH FAMILY AT BEDSIDE. NO SOB OR DISTRESS NOTED. ON ROOM AIR. IV ACCESS ON LEFT UPPER ARM MIDLINE, PATENT AND INTACT, INFUSING WELL. PATIENT IS NOTED WITH MULTIPLE GONZALES AND PRESSURE SORES. COLOSTOMY IN PLACE. INITIAL ASSESSMENT DONE. BED IN LOW, SAFETY MEASURES IN PLACE. BOARD UPDATED.CALL LIGHT PLACED WITHIN PATIENT REACH. WILL CONTINUE TO MONITOR PATIENT.
[2019-02-09] MEDS: MULTIVITAMIN-12 10 ML in DEXTROSE 50% 760 ML, AMINO ACIDS 8.5% 760 ML, FAT EMULSION 20%... IV SCH ×4 (19:54)
--- NOTE | 2019-02-09 20:14 | NUR ---
VITALS TAKEN AT THIS TIME. NO DISTRESS NOTED. WILL CONTINUE TO MONITOR PATIENT.
[2019-02-09 20:15] VITALS: BP 106/68
--- NOTE | 2019-02-09 21:20 | NUR ---
BLOOD GLUCOSE RESULT OF 100. WILL CONTINUE TO MONITOR PATIENT.
--- NOTE | 2019-02-09 21:24 | NUR ---
PRN DILAUDID GIVEN PER PATIENT REQUEST FOR SEVERE PAIN. CALL LIGHT PLACED WITHIN PATIENT REACH. WILL CONTINUE TO MONITOR PATIENT.
[2019-02-10 00:10] VITALS: BP 115/71
--- NOTE | 2019-02-10 01:00 | NUR ---
PATIENT REFUSED WOUND ASSESSMENT AND REPOSITIONING AT THIS TIME. WILL CONTINUE TO MONITOR PATIENT.
[2019-02-10] MEDS: HYDROmorphone PFS 2 MG/ML SYR IVP PRN ×7 (01:42→22:15)
--- NOTE | 2019-02-10 01:42 | NUR ---
PRN DILAUDID GIVEN AT THIS TIME PER PATIENT REQUEST FOR SEVERE PAIN. WILL CONTINUE TO MONITOR PATIENT.
--- NOTE | 2019-02-10 04:15 | NUR ---
VITALS TAKEN AT THIS TIME. NO DISTRESS NOTED. WILL CONTINUE TO MONITOR PATIENT.
[2019-02-10 04:20] VITALS: BP 124/73
--- NOTE | 2019-02-10 05:06 | NUR ---
PRN DILAUDID GIVEN AT THIS TIME PER PATIENT REQUEST FOR SEVERE PAIN. CALL LIGHT WITHIN PATIENT REACH. WILL CONTINUE TO MONITOR PATIENT.
--- NOTE | 2019-02-10 07:01 | NUR ---
PATIENT IN STABLE CONDITION. CALL LIGHT PLACED WITHIN PATIENT REACH. WILL ENDORSE TO AM SHIFT NURSE FOR CONTINUITY OF CARE.
--- NOTE | 2019-02-10 07:20 | NUR ---
RECEIVED BEDSIDE REPORT FROM BATCHER OPERATOR NURSE, PATIENT SLEEPING PEACEFULLY IN BED,CALL LIGHT WITHIN REACH, WILL CONTINUE TO MONITOR.
[2019-02-10 08:00] VITALS: BP 107/62
--- NOTE | 2019-02-10 08:50 | NUR ---
DOING ROUNDS, VITAL SIGNS ARE STABLE, GLUCOSE: 102, PATIENT IN BED WATCHING A MOVIE ON HIS TABLET, WILL CONTINUE TO MONITOR.
[2019-02-10] MEDS: METHYLNALTREXONE SUBQ SCH (09:00)
--- NOTE | 2019-02-10 09:11 | NUR ---
PATIENT REQUESTING PAIN MEDICATIONS FOR 9/10 PAIN, PRN PAIN MEDICATION WILL BE GIVEN PER PROTOCOL.
[2019-02-10] MEDS: BLOOD GLUCOSE MONITORING 1 DEV DEV FS SCH ×2 (09:12→22:00)
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
[2019-02-10 12:00] VITALS: BP 106/65
--- NOTE | 2019-02-10 12:13 | NUR ---
PATIENT IN BED SHOWING SIGNS OF PAIN, REQUESTING PAIN MEDICATIONS. FACIAL GRIMACING, UNEASY, MOANING, IRRITABILITY, AND RESTLESSNESS. VITAL SIGNS STABLE AND PAIN MEDICATIONS WILL BE GIVEN PER PROTOCOL.
[2019-02-10] MEDS: THERAHONEY GEL 42.5 GM TP SCH (13:00)
--- NOTE | 2019-02-10 13:49 | NUR ---
PATIENT IN BED SLEEPING, NO DISTRESS NOTED. CALL LIGHT WITHIN REACH AND WILL CONTINUE TO MONITOR PATIENT.
[2019-02-10] MEDS: ONDANSETRON 4 MG/2 ML VIAL IVP PRN ×2 (15:46→20:10)
[2019-02-10 16:00] VITALS: BP 105/75
--- NOTE | 2019-02-10 19:05 | NUR ---
ENDORSED CARE TO SOCIAL WORKER CLINICAL NURSE, PATIENT IS IN STABLE CONDITION.
[2019-02-10] MEDS: MULTIVITAMIN-12 10 ML in DEXTROSE 50% 760 ML, AMINO ACIDS 8.5% 760 ML, FAT EMULSION 20%... IV SCH ×4 (19:50)
--- NOTE | 2019-02-10 19:59 | NUR ---
RECEIVED BEDSIDE REPORT FROM AM SHIFT RN FOR PT'S CONTINUITY OF CARE. PT IS WITH FAMILY MEMBERS AT BEDSIDE, ON ROOM AIR, ON ENTRY LEVEL PARALEGAL, HAS LEFT UPPER ARM MIDLINE. HUNG NEW BAG OF TPN, PT CURRENTLY VOMITING 10 ML OF EMESIS. REQUESTED FOR ZOFRAN. RE-ORIENTED PT TO MORTGAGE CLOSER ROUTINE, PT AND FAMILY MEMBERS VERBALIZED FAMILIARITY. SAFETY AND CONTACT PRECAUTIONS IN PLACE. PT'S NEEDS MET AT THIS TIME. WILL MONITOR PT THROUGHOUT SHIFT.
[2019-02-10 20:00] VITALS: BP 105/73
--- NOTE | 2019-02-10 20:10 | NUR ---
ADMINISTERED PRN IVP ZOFRAN, PT TOLERATED IT WELL. PT'S NEEDS MET. REQUESTED TO CHECK BLOOD GLUCOSE AND ADMINISTER FENTANYL PATCH DURING THE NEXT IVP PAIN MEDICATION.
--- NOTE | 2019-02-10 21:30 | NUR ---
PT C/O PAIN. ADMINISTERED IVP PAIN MEDICATION ORDERED. APPLIED FENTANYL PATCH ON BILATERAL SHOULDERS PER REQUEST. BLOOD GLUCOSE CHECKED, 93, NO COVERAGE NEEDED. PT'S NEEDS MET. WILL CONTINUE TO MONITOR PT.
[2019-02-10] MEDS: fentaNYL 0.075 MG/HR PATCH TD SCH (22:05)
[2019-02-11] VITALS: BP 107/73
--- NOTE | 2019-02-11 00:55 | NUR ---
PT C/O PAIN. ADMINISTERED IVP PAIN MEDICATION ORDERED. MIDLINE IV SITE DRESSING CHANGED. PT TOLERATED IT WELL. PT'S NEEDS MET AT THIS TIME. PT REFUSED FOR URINAL AND COLOSTOMY BAG BE EMPTIED, AND REFUSED WOUND ASSESSMENT. PT TEACHING GIVEN. WILL CONTINUE TO MONITOR PT.
[2019-02-11] MEDS: HYDROmorphone PFS 2 MG/ML SYR IVP PRN ×6 (00:59→20:35)
[2019-02-11 04:00] VITALS: BP 113/78
--- NOTE | 2019-02-11 04:40 | NUR ---
PT C/O PAIN. REQUESTED FOR PAIN MEDICATION. ADMINISTERED PRN IVP PAIN MEDICATION ORDERED. VS CHECKED AND CHARTED. PT'S NEEDS MET AT THIS TIME. WILL CONTINUE TO MONITOR PT.
--- NOTE | 2019-02-11 06:10 | NUR ---
PT LYING DOWN WATCHING TV, REPORTS TOLERABLE PAIN AT THIS TIME. WILL ENDORSE TO AM SHIFT RN FOR PT'S CONTINUITY OF CARE.
--- NOTE | 2019-02-11 07:15 | NUR ---
RECEIVED BEDSIDE REPORT FROM SUPERVISOR TWISTING DEPARTMENT RN. PT WAS RESTING IN BED AND AROUSABLE. PT IS AAOX4. PICC LINE DRESSING CLEAN AND INTACT. BREATHING IS EVEN AND UNLABORED, ON RA. COLOSTOMY BAG IN PLACE. RIGHT BKA. LEFT LEG COVERED IN DRESSING, INTACT. NO SIGNS OF DISTRESS NOTED AT THIS TIME. SAFETY MEASURES ASSESSED, BED IN LOW POSITION AND CALL LIGHT WITHIN REACH. EDUCATED PT TO USE CALL LIGHT FOR ASSISTANCE AND PT VERBALIZED UNDERSTANDING. WILL MONITOR PT
[2019-02-11 08:00] VITALS: BP 107/65
--- NOTE | 2019-02-11 08:25 | NUR ---
PT REFUSED MORNING MEDICATION RELISTOR. EDUCATED PT ON IMPORTANCE OF MEDICATION BUT PT STILL REFUSED. PT VITALS CHECKED. PT REPORTED PAIN OF 9/10. MEDICATED PT WITH DILAUDID. BLOOD GLUCOSE CHECKED WITH A RESULT OF 94. WILL CONTINUE TO MONITOR.
[2019-02-11] MEDS: METHYLNALTREXONE SUBQ SCH (08:36)
[2019-02-11] MEDS: BLOOD GLUCOSE MONITORING 1 DEV DEV FS SCH ×3 (08:42→21:43)
[2019-02-11 11:22] LABS: ANION GAP 11.2 (8-16); POTASSIUM 5.2 mmol/L (3.5-5.1)
[2019-02-11 11:26] LABS: MAGNESIUM 2.5 mg/dL (1.8-2.4); PHOSPHORUS 5.5 mg/dL (2.5-4.9)
--- NOTE | 2019-02-11 11:33 | NUR ---
PT COMPLAINS OF 9/10 PAIN. VITALS WERE 105/68, HEART RATE 108, O2 SAT 100, TEMP 97.2. ADMINISTERED DILAUDID TO PT. MEDICATION EDUCATION WAS GIVEN TO PT. PT VERBALIZED UNDERSTANDING. WILL CONTINUE TO MONITOR.
--- NOTE | 2019-02-11 11:36 | NUR ---
PHARMACISTDELVIN CALLED AND NOTIFIED TO STOP THE TPN PER LAB RESULTS OF PT'S VALUE TODAY, K IS HIGH AND PER PHARMACY PROTOCOL.
[2019-02-11] MEDS ORDERED: DEXTROSE 10% 1,000 ML IV SCH (11:40)
[2019-02-11 12:00] VITALS: BP 105/68
--- NOTE | 2019-02-11 12:47 | NUR ---
STARTED PT IV FLUID DEXTROSE 10% AT 70 ML/HR PER ORDER. DID NOT ADMINISTER TERAHONEY GEL DUE TO PT REFUSED TO BE REPOSITIONED. NO SIGNS OF DISTRESS AT THIS TIME. WILL CONTINUE TO MONITOR.
[2019-02-11] MEDS: THERAHONEY GEL 42.5 GM TP SCH (12:57)
--- NOTE | 2019-02-11 15:34 | NUR ---
02/11/19 RD FOLLOW UP COMPLETED PLEASE REFER TO NUTRITION ASSESSMENT UNDER CARE ACTIVITY FOR ESTIMATED NUTRITIONAL NEEDS. 1. CONTINUE REGULAR DIET W/ENSURE PLANT TID 2. RD PROVIDED NUTRITION EDUCATION HANDOUT WITH FOODS HIGH IN PROTEIN. GOAL FOR PROTEIN INTAKE FROM DIET IS 40 GM/DAY IN ADDITION TO TPN (50 GM OF PROTEIN) 3. RECOMMEND INCREASING TPN INFUSION WHEN MEDICALLY APPROPRIATE TO MEET 75% OF ESTIMATED NEEDS -CURRENT TPN D15%, AA 3%, LIPIDS 10% 100 ML AT 70 ML/HR WHICH PROVIDES 1157 KCAL AND 50 GM OF PROTEIN/DAY 4. ENCOURAGE INCREASING PO INTAKE 5. RD WILL FOLLOW UP 2-3 DAYS, HIGH RISK ALEXEI JOHNSTON RD
[2019-02-11 16:00] VITALS: BP 113/68
--- NOTE | 2019-02-11 16:35 | NUR ---
PT COMPLAINS OF 8/10 PAIN. VITALS CHECKED, BP 113/68, HR 102, O2 SAT 100%. ADMINISTERED DILAUDID FOR PAIN. MEDICATION EDUCATION GIVEN TO PT. PT VERBALIZED UNDERSTANDING. WILL CONTINUE TO MONITOR.
[2019-02-11] MEDS: MICAFUNGIN SODIUM 100 MG in NACL 0.9% 100 ML IV SCH (18:47)
--- NOTE | 2019-02-11 18:58 | NUR ---
ADMINISTERED PT MEDICATION ORDERED. MEDICATION EDUCATION GIVEN TO PT. PT VERBALIZED UNDERSTANDING. WILL CONTINUE TO MONITOR.
--- NOTE | 2019-02-11 19:30 | NUR ---
RECEIVED REPORT AT BEDSIDE FOR CONTINUITY OF CARE, PT IN STABLE CONDITION.
--- NOTE | 2019-02-11 19:30 | NUR ---
ENDORSED PT TO REINFORCING IRON WORKER HELPER RN. PT IN STABLE CONDITION
[2019-02-11 20:00] VITALS: BP 112/65
--- NOTE | 2019-02-11 20:30 | NUR ---
PT MICAFUNGIN IV ABT COMPLETED. IT WAS FLUSHED X3 WITH NORMAL SALINE TO CLEAR THE LINE . PICC LINE INTACT AND FLUSHED PATENT. V/S FOLLOWS; T 98.2 P 107 R 18 B/P 112/65 02 100% ON ROOM AIR. FINGERSTICK IS 65. NO HUMALOG COVERAGE NEEDED PT ENCOURAGE TO HAVE PO INTAKE. ALL REQUESTED NEEDS ATTENDED. TPN HUNG AND RUNNING AT 70MLS/ ORDERED.
[2019-02-11] MEDS: DEXTROSE IV SCH ×3 (21:03)
[2019-02-11] MEDS: MULTIVITAMIN IV SCH ×3 (21:03)
[2019-02-11] MEDS: AMINO ACIDS 8.5% IV SCH ×3 (21:03)
--- NOTE | 2019-02-11 21:30 | NUR ---
PT GIVEN ORDERED IVP DILAUDID FOR SEVERE LEG PAIN, WELL REQUESTED ZOFRAN FOR NAUSEA AND VOMITING.
[2019-02-11] MEDS: ONDANSETRON 4 MG/2 ML VIAL IVP PRN (21:44)
[2019-02-12] VITALS: BP 120/75
[2019-02-12] MEDS: HYDROmorphone PFS 2 MG/ML SYR IVP PRN ×3 (00:50→20:53)
--- NOTE | 2019-02-12 00:50 | NUR ---
PT C/O SEVERE PAIN IN LEGS AND WAS GIVEN IVP DILAUDID. V/S FOLLOWS T 97.7 P 111 R 18 B/P 120/75 02 100% ON ROOM AIR. ALL FALLS AND CONTACT PRECAUTIONS IN PLACE.ALL REQUESTED NEEDS ATTENDED BY STAFF WITH CALL CONN IN REACH.
[2019-02-12 04:00] VITALS: BP 126/64
--- NOTE | 2019-02-12 04:00 | NUR ---
PT C/O SEVERE PAIN IN LEGS, GIVEN IVP DILAUDID. PT C/O THAT LEFT UPPER ARM LOOKS SWOLLEN, HE LUH PAIN IN AREA AND DOUBLE LUMEN FLUSHED WELL BUT THERE IS SOME SWELLING IN UPPER R ARM. TPN WAS TURNED OFF AT THIS TIME. CHARGE AND BENCH MECHANIC MADE AWARE. V/S FOLLOWS: T 97.9 P 107 R 18 B/P 126/64 02 98% ON ROOM AIR. ALL FALLS AND CONTACT PRECAUTIONS IN PLACE.
--- NOTE | 2019-02-12 07:25 | NUR ---
RECEIVED PT FROM CORE INSPECTOR NURSELÓPEZ, PT IS AWAKE AND LYING SUPINE ON THE BED WITH SIDE RAILS UP AND CALL LIGHT WITHIN REACH, LEFT UA MIDLINE WAS TENDER AND SWOLLEN, NIGHT NURSE, NIGHT CHARGE NURSE AND NIGHT HS WERE INFORMED, TPN WAS STOPPED AT 0400 AND NIGHT RN SAID THAT SHE DID NOT NOTIFY THE MD YET, SAFETY AND FALL PRECAUTION ENFORCED, BED ALARM ACTIVATED, NO SIGN OF DISTRESS NOTED AND WILL CONTINUE TO MONITOR PT.
[2019-02-12 08:00] VITALS: BP 117/63
[2019-02-12 09:31] LABS: BASOPHILS # (AUTO) 0.1 K/uL (0.00-0.22); BASOPHILS % (AUTO) 1.2 % (0.0-2.0); EOSINOPHILS # (AUTO) 0.3 K/uL (0-0.4); HEMATOCRIT 31.4 % (36-52); LYMPHOCYTES # (AUTO) 2.2 K/uL (2.0-11.5); LYMPHOCYTES % (AUTO) 21.6 % (20.5-51.1); MEAN CORPUSCULAR HEMOGLOBIN 28 pg (27-31); MEAN CORPUSCULAR HGB CONC 32 g/dL (33-37); MEAN CORPUSCULAR VOLUME 87.2 fL (80-94); MONOCYTES # (AUTO) 1.2 K/uL (0.8-1.0); MONOCYTES % (AUTO) 11.6 % (1.7-9.3); NEUTROPHILS # (AUTO) 6.3 K/uL (1.8-7.7); NEUTROPHILS % (AUTO) 62.6 % (42.2-75.2); PLATELET COUNT (AUTO) 416 K/uL (140-450); RED CELL DISTRIBUTION WIDTH 16.9 % (11.6-13.7); WHITE BLOOD COUNT (AUTO) 10.1 K/uL (4.8-10.8)
[2019-02-12] MEDS: METHYLNALTREXONE SUBQ SCH (10:08)
--- NOTE | 2019-02-12 10:08 | NUR ---
PT REFUSED MEDICATION RELISTOR. MEDICATION EDUCATION ON THE IMPORTANCE OF RELISTOR WAS GIVEN TO PT, BUT PT STILL REFUSED MED. WILL CONTINUE TO MONITOR.
[2019-02-12] MEDS ORDERED: HYDROcodone/APAP 10/325 MG 1 TAB TAB PO PRN (10:25)
[2019-02-12 10:55] LABS: ALBUMIN 1.6 g/dL (3.4-5.0); ANION GAP 15.3 (8-16); POTASSIUM 4.3 mmol/L (3.5-5.1); TOTAL BILIRUBIN 0.2 mg/dL (0.0-1.0)
[2019-02-12] MEDS ORDERED: HYDROmorphone PFS 2 MG/ML SYR IVP PRN (11:05)
--- NOTE | 2019-02-12 11:35 | NUR ---
TIME OUT AND PICC LINE INSERTION WAS DONE NOW BY PICC LINE NURSE CLAY ON THE RT UA.
[2019-02-12 12:00] VITALS: BP 103/64
--- NOTE | 2019-02-12 12:00 | NUR ---
PICC LINE INSERTION WAS FINISHED NOW, CXR WAS DONE TO CONFIRM PLACEMENT AND PICC LINE NURSE CONFORMED THAT PICC LINE ON THE RT UA IS GOOD TO BE USE.
--- NOTE | 2019-02-12 12:30 | NUR ---
PT'S MOTHER DISCUSSED WITH AM RN REGARDING THE CONCERN FOR A FEEDBACK REGARDING THE STATUS OF THE CONDITION OF THE PT. PT'S MOTHER WANTS TO HAVE AN EXPLICIT FEEDBACK REGARDING THE STATUS OF THE PT'S BONES, AND STATED THAT PT'S HIP BONE IS PROTRUDING, MOTHER WAS ADVISED THAT CONCERN WILL BE RELAYED TO DR. GREEN AND CHARGE NURSE, MAGDIEL WAS ALSO INFORMED OF THE MOTHER'S CONCERN.
[2019-02-12] MEDS: THERAHONEY GEL 42.5 GM TP SCH (13:00)
--- NOTE | 2019-02-12 13:15 | NUR ---
SCHEDULED MEDICATION WAS NOT GIVEN DUE TO PT'S REFUSAL FOR WOUND ASSESSMENT AND REPOSITIONING. MADE AWARE.
--- NOTE | 2019-02-12 13:52 | NUR ---
PT REPORT 10/19. VITALS RECHECKED AND BP IS 110/67, HR 111, O2 SAT 100%. ADMINISTERED DILAUDID. WILL CONTINUE TO MONITOR.
[2019-02-12] MEDS: AMINO ACIDS 8.5% IV SCH ×3 (14:06)
[2019-02-12] MEDS: DEXTROSE IV SCH ×3 (14:06)
[2019-02-12] MEDS: MULTIVITAMIN IV SCH ×3 (14:06)
[2019-02-12] MEDS: ONDANSETRON 4 MG/2 ML VIAL IVP PRN (15:01)
[2019-02-12 16:00] VITALS: BP 106/71
--- NOTE | 2019-02-12 17:02 | NUR ---
SPOKE TO DR. GREEN TO VERIFY PT DILAUDID PAIN MEDICATION. DR. GREEN TO GIVE 2MG DILAUDID Q3H NEEDED FOR SEVERE PAIN. READ BACK AND VERIFIED.
[2019-02-12] MEDS ORDERED: HYDROmorphone PFS 2 MG/ML SYR ONE (17:21)
--- NOTE | 2019-02-12 17:30 | NUR ---
PT C/O PAIN RATE OF 10/10, PAIN MEDICATION WAS GIVEN VIA IV PUSH, PARAMETER CHECKED, BP IS 106/71, PULSE IS 114, O2 SATURATION IS 98%. ALSO ADMINISTERED MICAFUNGIN MEDICATION. MEDICATION EDUCATION WAS GIVEN TO PT. PT VERBALIZED UNDERSTANDING. WILL CONTINUE TO MONITOR.
[2019-02-12] MEDS: MICAFUNGIN SODIUM 100 MG in NACL 0.9% 100 ML IV SCH (17:34)
--- NOTE | 2019-02-12 19:30 | NUR ---
ENDORSED PT TO CHIEF SERVICE OBSERVER RN. PT IN STABLE CONDITION.
[2019-02-12 20:00] VITALS: BP 104/72
--- NOTE | 2019-02-12 20:00 | NUR ---
ASSUMED CARE. RECEIVED ALERT,ORIENTED. AFEBRILE, NOT IN ACUTE DISTRESS. COMPLAINED OF LOWER BACK PAIN (10/19). PAIN MEDICATION NOT YET DUE. WITH TPN INFUSING AT 70 ML/HR VIA RIGHT UPPER ARM DOUBLE LUMEN PICC LINE. SAO2=99% ON ROOM AIR. SINUS TACHYCARDIA AT 118/MINUTE ON THE MONITOR. CONTACT ISOLATION FOR MDRO/SPECIAL EFFECTS ARTIST OF WOUND IMPLEMENTED. FAMILY AT BEDSIDE. VS STABLE, WILL CONTINUE TO MONITOR. NEEDS ATTENDED.
--- NOTE | 2019-02-12 20:53 | NUR ---
DLAUDID 2 MG IVP GIVEN REQUESTED FOR PAIN.
[2019-02-12] MEDS: BLOOD GLUCOSE MONITORING 1 DEV DEV FS SCH (20:58)
--- NOTE | 2019-02-12 20:58 | NUR ---
FINGERSTICK BLOOD SUGAR CHECK=85. NO INSULIN COVERAGE NEEDED.
--- NOTE | 2019-02-12 21:40 | NUR ---
VERBALIZED IMPROVED PAIN (7/10).
[2019-02-13] VITALS: BP 108/72
--- NOTE | 2019-02-13 | NUR ---
AWAKE, NOT IN ACUTE DISTRESS. COMPLAINED OF WORSENING PAIN. ANOTHER DOSE OF PRN DILAUDID 2 MG IVP ADMINISTERED. SIDE RAILS UP, CALL LIGHT WITHIN REACH. KEPT WARM AND COMFORTABLE. VS REMAIN STABLE. WILL CONTINUE TO MONITOR.
[2019-02-13] MEDS: HYDROmorphone PFS 2 MG/ML SYR IVP PRN ×7 (03:41→22:42)
[2019-02-13] MEDS: ONDANSETRON 4 MG/2 ML VIAL IVP PRN ×2 (03:45→16:23)
--- NOTE | 2019-02-13 03:45 | NUR ---
COMPLAINED OF WORSENING PAIN (8/10) AND NAUSEA. PRN DILAUDID 2 MG IVP AND ZOFRAN 4 MG IVP GIVEN REQUESTED. OTHERWISE. VS REMAIN STABLE.
[2019-02-13 04:00] VITALS: BP 123/81
--- NOTE | 2019-02-13 07:25 | NUR ---
ENDORSED CARE TO AM SHIFT RN STABLE.
--- NOTE | 2019-02-13 07:30 | NUR ---
RECEIVED PT FROM HEEL BLACKER NURSE, LÓPEZ, PT IS AWAKE AND LYING SUPINE ON THE BED WITH SIDE RAILS UP AND CALL LIGHT WITHIN REACH, RT UA PICC LINE INTACT, WITH TPN AT 70ML/HR, PT C/O PAIN RFATE OF 10/19 AND WILL MEDICATE, SAFETY AND FALL PRECAUTION ENFORCED, BED ALARM ACTIVATED, NO SIGN OF DISTRESS NOTED AND WILL CONTINUE TO MONITOR PT. Addendum: 02/13/19 at 2038 by Trang Magallanes RN HEEL BLACKER NURSE ON DUTY ON THE ABOVE NOTE IS ANIRUDH, JUSTIN
[2019-02-13] MEDS: MULTIVITAMIN IV SCH ×9 (07:55→20:48)
[2019-02-13] MEDS: DEXTROSE IV SCH ×9 (07:55→20:48)
[2019-02-13] MEDS: AMINO ACIDS 8.5% IV SCH ×9 (07:55→20:48)
[2019-02-13 08:00] VITALS: BP 103/68
--- NOTE | 2019-02-13 08:10 | NUR ---
PT C/O PAIN RATE OF 10/10 AND WAS GIVEN PAIN MEDICATION NOW, BP IS 104/68, PULSE IS 99, O2 SATURATION IS 99%, WILL MONITOR PT.
[2019-02-13] MEDS: BLOOD GLUCOSE MONITORING 1 DEV DEV FS SCH ×2 (08:27→20:49)
[2019-02-13] MEDS: METHYLNALTREXONE SUBQ SCH (08:30)
[2019-02-13 10:46] LABS: ANION GAP 13.3 (8-16); CARBON DIOXIDE 27.5 mmol/L (21-32); POTASSIUM 3.8 mmol/L (3.5-5.1)
[2019-02-13 10:56] LABS: MAGNESIUM 1.8 mg/dL (1.8-2.4); PHOSPHORUS 5.1 mg/dL (2.5-4.9)
[2019-02-13 12:00] VITALS: BP 103/66
--- NOTE | 2019-02-13 12:34 | NUR ---
PAIN WAS GIVEN PAIN MEDICATION NOW FOR C/O PAIN RATE OF /, BP IS 103/66, PULSE IS 105, O2 SATURATION IS 98%, WILL MONITOR PT.
[2019-02-13] MEDS: THERAHONEY GEL 42.5 GM TP SCH (13:00)
--- NOTE | 2019-02-13 13:00 | NUR ---
PT REFUSED TO HAVE A WOUND ASSESSMENT AND RAMEZAHONEY WAS NOT APPLIED, PT WAS GIVEN TEACHING BUT STILL REFUSED TO BE ASSESSED FOR THE WOUND.
[2019-02-13 16:00] VITALS: BP 106/60
--- NOTE | 2019-02-13 16:15 | NUR ---
PT WAS GIVEN PAIN MEDICATION VIA IV PUSH, BP IS 106/60, PULSE IS 100 AND O SATURATION IS 100%, WILL RE-ASSES AND MONITOR PT.
--- NOTE | 2019-02-13 16:23 | NUR ---
PT C/O NAUSA AND WAS GIVEN ZOFRAN NOW, WILL MONITOR PT.
[2019-02-13] MEDS: MICAFUNGIN SODIUM 100 MG in NACL 0.9% 100 ML IV SCH (17:37)
--- NOTE | 2019-02-13 17:37 | NUR ---
PT WAS GIVEN IVPB MEDICATION NOW. WILL MONITOR PT.
--- NOTE | 2019-02-13 19:20 | NUR ---
ENDORSED PT TO STAVE LOG CUT OFF SAW OPERATOR NURSE, AGATHA FOR CONTINUITY OF CARE. PT IS STABLE AT THIS TIME.
--- NOTE | 2019-02-13 19:20 | NUR ---
RECEIVED REPORT FROM AM NURSE. PT AT BED AWAKE, ALERT AND ORIENTED X4, COOPERATIVE, CALM, PT BREATHING REGULARLY ON ROOM AIR, LUNG SOUNDS CLEAR THROUGHOUT, HEART RATE REGULAR, S1S2 PRESENT, CAP REFILL <3S, PULSES 2+ BILATERAL UPPER AND LOWER EXTREMITIES, ABDOMEN, SOFT, ROUND, NONDISTENDED, NONTENDER, BOWEL SOUNDS ACTIVE IN ALL QUADRANTS, COLOSTOMY APPLIANCE IN PLACE, BLADDER, SOFT, ROUND, NONDISTENDED, NONTENDER, PT HAS OPEN WOUNDS ON BILATERAL LOWER EXTREMITIES, DRESSING IN PLACE, DRY AND INTACT. PT HAS RIGHT UPPER ARM PICC LINE IN PLACE. RUNNING TPN AT 70 ML/HR. HOB 30 DEGREES, SIDE RAILS UP X2, BED AT LOWEST POSITION.
[2019-02-13 20:00] VITALS: BP 128/77
[2019-02-13] MEDS: fentaNYL 0.075 MG/HR PATCH TD SCH (21:00)
--- NOTE | 2019-02-13 21:10 | NUR ---
MEDICATIONS GIVEN. PT AT BED WITH MOTHER. CALM COOPERATIVE, BREATHING REGULARLY IN ROOM AIR. WILL CONTINUE TO MONITOR.
--- NOTE | 2019-02-13 23:15 | NUR ---
PT AT BED, WATCHING TV. REQUESTED PAIN MEDICATION.
[2019-02-14] VITALS: BP 117/67
[2019-02-14] MEDS: HYDROmorphone PFS 2 MG/ML SYR IVP PRN ×6 (01:56→20:20)
--- NOTE | 2019-02-14 02:30 | NUR ---
PT AT BED WATCHING TV. BREATHING REGULARLY IN ROOM AIR.
[2019-02-14 04:00] VITALS: BP 106/69
--- NOTE | 2019-02-14 04:06 | NUR ---
PT AT BED EYES CLOSED. BREATHING REGULARLY ON ROOM AIR. WILL CONTINUE TO MONITOR.
--- NOTE | 2019-02-14 07:20 | NUR ---
RECEIVED REPORT FROM ASBESTOS COVERER NURSE. PT IS FULL CODE WITH MULTIPLE FOOD ALLERGIES. PATIENT IS SLEEPING, EASILY AROUSABLE. PATIENT HAS RIGHT UA PICC LINE WITH TPN INFUSING. PATIENT HAS COLOSTOMY BAG. PATIENT IS C/O OF PAIN. WILL F/U WITH PAIN MEDICATION AND CONTINUE WITH PLAN OF CARE FOR THE DAY
[2019-02-14 07:36] LABS: BASOPHILS # (AUTO) 0.1 K/uL (0.00-0.22); BASOPHILS % (AUTO) 0.7 % (0.0-2.0); EOSINOPHILS # (AUTO) 0.3 K/uL (0-0.4); EOSINOPHILS % (AUTO) 2.6 % (0.0-4.0); HEMATOCRIT 28.4 % (36-52); LYMPHOCYTES # (AUTO) 1.8 K/uL (2.0-11.5); LYMPHOCYTES % (AUTO) 17.1 % (20.5-51.1); MEAN CORPUSCULAR HEMOGLOBIN 28 pg (27-31); MEAN CORPUSCULAR HGB CONC 32 g/dL (33-37); MEAN CORPUSCULAR VOLUME 87.6 fL (80-94); MONOCYTES # (AUTO) 1.1 K/uL (0.8-1.0); MONOCYTES % (AUTO) 10.1 % (1.7-9.3); NEUTROPHILS # (AUTO) 7.5 K/uL (1.8-7.7); NEUTROPHILS % (AUTO) 69.5 % (42.2-75.2); PLATELET COUNT (AUTO) 344 K/uL (140-450); RED BLOOD CELL COUNT(AUTO) 3.24 MIL/uL (4.20-6.10); RED CELL DISTRIBUTION WIDTH 16.9 % (11.6-13.7); WHITE BLOOD COUNT (AUTO) 10.7 K/uL (4.8-10.8)
[2019-02-14 07:52] LABS: ALBUMIN 1.5 g/dL (3.4-5.0); ANION GAP 10.7 (8-16); CARBON DIOXIDE 26.8 mmol/L (21-32); POTASSIUM 3.5 mmol/L (3.5-5.1); TOTAL BILIRUBIN 0.2 mg/dL (0.0-1.0)
[2019-02-14 08:00] VITALS: BP 96/58
[2019-02-14] MEDS: BLOOD GLUCOSE MONITORING 1 DEV DEV FS SCH ×2 (09:00→20:19)
--- NOTE | 2019-02-14 10:00 | NUR ---
BLOOD SUGAR OF 80, NO INSULIN NEEDED.
--- NOTE | 2019-02-14 11:30 | NUR ---
ADMINISTERED DILAUDID IVP FOR PAIN. PATIENT IS SITTING UP IN BED, NO DISTRESS NOTED.
[2019-02-14 12:00] VITALS: BP 96/60
[2019-02-14] MEDS: THERAHONEY GEL 42.5 GM TP SCH (13:00)
--- NOTE | 2019-02-14 14:01 | NUR ---
I talked to Dr. Avelar this morning, I asked for Ortho consult per mother request, said its ok for consult, I talked to dr. Montes, per Dr. Montes patient has no broken bones so Dr. Wilson should handle that, i will follow up with Dr. Wilson and I will talk to mother again,
--- NOTE | 2019-02-14 15:54 | NUR ---
I talked to mother that i talked to Dr. Simon roche that since patient has no fracture i just need to follow up with Dr. CAICEDO regarding her concern of patient repositioning, mother is happy, i offer patient to be reposition at this time, he said no, patient claimed i am eating, i will also coordinate with Neda Portillo [phone], i am requesting the Neda bed sheet to be change, it should be the day he go to surgery for dressing changes.
[2019-02-14 16:00] VITALS: BP 106/64
--- NOTE | 2019-02-14 17:13 | NUR ---
02/14/19 RD FOLLOW UP COMPLETED PLEASE REFER TO NUTRITION ASSESSMENT UNDER CARE ACTIVITY FOR ESTIMATED NUTRITIONAL NEEDS. 1. CONTINUE REGULAR DIET W/ENSURE PLANT TID 2. RECOMMEND INCREASING TPN INFUSION WHEN MEDICALLY APPROPRIATE TO MEET 75% OF ESTIMATED NEEDS -CURRENT TPN D10%, AA 3%, LIPIDS 0% 3. ENCOURAGE INCREASING PO INTAKE 4. RD WILL FOLLOW UP 2-3 DAYS, HIGH RISK ALEXEI JOHNSTON RD
[2019-02-14] MEDS: MICAFUNGIN SODIUM 100 MG in NACL 0.9% 100 ML IV SCH (17:24)
--- NOTE | 2019-02-14 18:10 | NUR ---
ADMINISTERED PAIN MEDICATION FOR PAIN 09/18. WILL RE-ASSESS AND ENDORSE TO NEXT SHIFT FOR CONTINUITY OF CARE.
--- NOTE | 2019-02-14 19:19 | NUR ---
RECEIVED REPORT FROM AM NURSE. PT AT BED AWAKE, ALERT AND ORIENTED X4, COOPERATIVE, CALM, PT BREATHING REGULARLY ON ROOM AIR, LUNG SOUNDS CLEAR THROUGHOUT, HEART RATE REGULAR, PT HAS OPEN WOUNDS ON BILATERAL LOWER EXTREMITIES, DRESSING IN PLACE, DRY AND INTACT. PATIENT REFUSED TO DO WOUND ASSESSMENT. WITH OLD LIDOCAINE PATCH ( 02/10/19 ) PT HAS RIGHT UPPER ARM PICC LINE IN PLACE.WITH RUNNING TPN AT 70 ML/HR. HOB 30 DEGREES, SIDE RAILS UP X2, BED AT LOWEST POSITION
--- NOTE | 2019-02-14 19:20 | NUR ---
TO PHARMACY: AT THE [facility] TOOK OUT ONLY ONE PATCH INITIALLY. 75 MCG. BUT THE ORDER IS .15, SO I HAD TO GO BACK AND GET THE OTHER PATCH. PLS FIX THE DOSAGE FROM THE [facility]MN[facility] W/ C I GOT.THANKS
[2019-02-14] MEDS: AMINO ACIDS 8.5% IV SCH ×3 (19:27)
[2019-02-14] MEDS: MULTIVITAMIN IV SCH ×3 (19:27)
[2019-02-14] MEDS: DEXTROSE IV SCH ×3 (19:27)
[2019-02-14] MEDS: fentaNYL 0.075 MG/HR PATCH TD SCH (19:34)
[2019-02-14 20:00] VITALS: BP 106/68
[2019-02-14] MEDS: ONDANSETRON 4 MG/2 ML VIAL IVP PRN (20:01)
--- NOTE | 2019-02-14 20:01 | NUR ---
PT VOMITED 1X 50 ML, ZOFRAN GIVEN PRN ORDERED
--- NOTE | 2019-02-14 20:21 | NUR ---
PT 10/10 PAIN, CRYING. MOTHER AT BEDSIDE, PT WAS ALSO VOMITING EARLIER. WILL GIVE PAIN MEDS EARLY. WILL CONTINUE TO MONITOR
[2019-02-15] VITALS: BP 103/65
[2019-02-15] MEDS: HYDROmorphone PFS 2 MG/ML SYR IVP PRN ×8 (00:14→23:31)
--- NOTE | 2019-02-15 02:00 | NUR ---
CHECKED ON PATIENT EVERY HOUR,PT NO RESPIRATORY DISTRESS, PAIN MEDS GIVEN PRN WHEN PT REQUESTS. PT MORE STABLE CONDITION AT THIS TIME.
--- NOTE | 2019-02-15 03:07 | NUR ---
PT C/O PAIN WILL ENDORSE Addendum: 02/16/19 at 0637 by Hermelinda Townsend RN NIKKO REAVES
[2019-02-15 04:00] VITALS: BP 106/66
--- NOTE | 2019-02-15 07:00 | NUR ---
PT AWKE, ALERT ORIENTED X 4. PT NOT IN DISTRESS. PT IN STABLE CONDITION. WILL ENDORSE TO NEXT SHIFT
--- NOTE | 2019-02-15 07:45 | NUR ---
RECEIVED PATIENT FROM CIVIL TRANSPORTATION ENGINEER NURSE. PATIENT IS SLEEPING AT THIS TIME. NO SIGNS OF DISTRESS NOTED. RESPIRATIONS EVEN AND UNLABORED, ON ROOM AIR. VISIBLE CHEST RISE. ON TELE MONITORING. CHRONIC WOUNDS IN THE LOWER EXTREMITIES, DRESSING DRY AND INTACT. PICC LINE IN THE RIGHT UPPER ARM. PATENT AND INTACT. REGULAR DIET. PATIENT HAS TPN ELECTROLYTES. BED IN LOW POSITION. CALL LIGHT IS WITHIN REACH. WILL CONTINUE TO MONITOR.
--- NOTE | 2019-02-15 08:00 | NUR ---
GIVEN DILAUDID FOR PAIN 11/18. EXPLAINED TO PATIENT INDICATION AND SIDE EFFECTS. PATIENT VERBALIZE UNDERSTANDING. PATIENT DENIES NAUSEA AND VOMITING. WILL REASSESS PATIENT
[2019-02-15 08:23] VITALS: BP 101/67
[2019-02-15] MEDS: BLOOD GLUCOSE MONITORING 1 DEV DEV FS SCH ×2 (09:00→21:01)
--- NOTE | 2019-02-15 09:10 | NUR ---
CHECKED BLOOD SUGAR. IT WAS 63. ENCOURAGED PATIENT TO DRINK OR EAT. PATIENT VERBALIZED HE WILL DRINK ENSURE SLOWLY BECAUSE EATING MAKES HIM NAUSEOUS. WILL RECHECK BLOOD SUGAR
--- NOTE | 2019-02-15 09:23 | NUR ---
C/O N/V. GIVEN ZOFRAN VIA IVP. EXPLAINED TO PATIENT WHAT MED IS. PATIENT VERBALIZED UNDERSTANDING. WILL CONTINUE TO MONITOR
[2019-02-15] MEDS: ONDANSETRON 4 MG/2 ML VIAL IVP PRN (09:42)
--- NOTE | 2019-02-15 10:15 | NUR ---
DR. GREEN MADE ROUNDS. SPOKE WITH THE PATIENT. PATIENT IS DRINKING ENSURE. WILL RECHECK BLOOD SUGAR
--- NOTE | 2019-02-15 10:20 | NUR ---
RECHECKED BLOOD SUGAR: 81. ENCOURAGED PATIENT TO EAT OR DRINK. PATIENT VERBALIZED HE WILL EAT OR DRINK SLOWLY
[2019-02-15] MEDS ORDERED: fentaNYL 0.1 MG/HR PATCH TD SCH (10:25)
--- NOTE | 2019-02-15 11:14 | NUR ---
GIVEN DILAUDID FOR PAIN 11/18. PATIENT VERBALIZED UNDERSTANDING WHEN EXPLAINED REGARDING MEDICATION. PATIENT BP IS 100/80, HR 99, O2SAT 100%, RESPIRATIONS 18.
--- NOTE | 2019-02-15 11:25 | NUR ---
DR. CAICEDO MADE ROUNDS. SPOKE WITH THE PATIENT REGARDING REPOSITIONING. PATIENT AGREEABLE TO BE REPOSITIONED.
[2019-02-15 12:00] VITALS: BP 100/60
[2019-02-15] MEDS: THERAHONEY GEL 42.5 GM TP SCH (13:00)
--- NOTE | 2019-02-15 13:10 | NUR ---
PATIENT REFUSED THERAHONEY GEL AND TO BE REPOSITIONED.
--- NOTE | 2019-02-15 14:13 | NUR ---
GIVEN DILAUDID FOR PAIN 10/19. EXPLAINED TO PATIENT INDICATION AND SIDE EFFECTS. PATIENT VERBALIZED UNDERSTANDING. BP 107/80, HR 83, O2SAT 97%. BED IN LOW POSITION, CALL LIGHT IS WITHIN REACH. MOMMELITA, AT BEDSIDE
--- NOTE | 2019-02-15 15:39 | NUR ---
PATIENT IS TALKING TO MOM. PATIENT REPORTS HE HAS 2/10 PAIN. NO OTHER COMPLAINTS. WILL CONTINUE TO MONITOR
[2019-02-15 16:00] VITALS: BP 100/57
[2019-02-15] MEDS: MICAFUNGIN SODIUM 100 MG in NACL 0.9% 100 ML IV SCH (17:17)
--- NOTE | 2019-02-15 17:34 | NUR ---
GIVEN DILAUDID FOR 8/10 BACK PAIN. BP 105/82, HR 116, O2SAT 98%, RESPIRATIONS EVEN AND UNLABORED, 18. GIVEN MYCAMINE VIA IVPB. EXPLAINED TO PATIENT INDICATIONS AND SIDE EFFECTS OF THE MEDICATIONS. PATIENT VERBALIZED UNDERSTANDING. CHANGED BLUE CAPS FOR THE IV. MOM IS AT BEDSIDE.
--- NOTE | 2019-02-15 19:15 | NUR ---
ENDORSED PATIENT TO RETREAD MOLD OPERATOR NURSEMIKE. PATIENT IS IN STABLE CONDITION.
--- NOTE | 2019-02-15 19:18 | NUR ---
RECEIVED REPORT FROM AM NURSE. PT AT BED AWAKE, ALERT AND ORIENTED X4, COOPERATIVE, CALM, PT BREATHING REGULARLY ON ROOM AIR, LUNG SOUNDS CLEAR THROUGHOUT, HEART RATE REGULAR, PT HAS OPEN WOUNDS ON BILATERAL LOWER EXTREMITIES, DRESSING IN PLACE, DRY AND INTACT. PATIENT REFUSED TO DO WOUND ASSESSMENT. PT HAS RIGHT UPPER ARM PICC LINE IN PLACE.WITH RUNNING TPN AT 70 ML/HR. HOB 30 DEGREES, SIDE RAILS UP X2, BED AT LOWEST POSITION
[2019-02-15 20:00] VITALS: BP 108/68
--- NOTE | 2019-02-15 21:00 | NUR ---
PT ASKING FOR PAIN MED C/O 10/19 GENERALIZED PAIN
[2019-02-15] MEDS: DEXTROSE IV SCH ×3 (21:01)
[2019-02-15] MEDS: AMINO ACIDS 8.5% IV SCH ×3 (21:01)
[2019-02-15] MEDS: MULTIVITAMIN IV SCH ×3 (21:01)
--- NOTE | 2019-02-15 23:31 | NUR ---
AGAIN ASKED FOR PAIN MEDS, GIVEN DILAUDID, A/O 10/19 GEN PAIN
[2019-02-16] VITALS: BP 109/65
--- NOTE | 2019-02-16 | NUR ---
PT REMINDED TO BE NPO FRO WOUND DEBRIDEMENT TODAY AT 0900AM. PT VERBALIZED UNDERSTANDING.
[2019-02-16] MEDS: HYDROmorphone PFS 2 MG/ML SYR IVP PRN ×7 (03:07→23:18)
[2019-02-16 04:00] VITALS: BP 105/63
--- NOTE | 2019-02-16 05:00 | NUR ---
LAB [facility] WENT AND TOOK AM LABS INCLUDING APTT, INR, AND PT, AWAITING RESULT
--- NOTE | 2019-02-16 06:42 | NUR ---
REMINDED PT THAT WE WILL BE COLLECTING THE URINE, AND HOPEFULLY BEFORE THE SURGERY SO THAT WE HAVE THE RESULT BEFORE THE SURGERY.
[2019-02-16 06:53] LABS: BASOPHILS # (AUTO) 0.1 K/uL (0.00-0.22); BASOPHILS % (AUTO) 0.9 % (0.0-2.0); EOSINOPHILS # (AUTO) 0.4 K/uL (0-0.4); EOSINOPHILS % (AUTO) 5.3 % (0.0-4.0); HEMATOCRIT 29.1 % (36-52); HEMOGLOBIN 9.1 g/dL (12.0-18.0); LYMPHOCYTES # (AUTO) 1.9 K/uL (2.0-11.5); LYMPHOCYTES % (AUTO) 23.3 % (20.5-51.1); MEAN CORPUSCULAR HEMOGLOBIN 28 pg (27-31); MEAN CORPUSCULAR HGB CONC 31 g/dL (33-37); MEAN CORPUSCULAR VOLUME 88.4 fL (80-94); MONOCYTES # (AUTO) 0.9 K/uL (0.8-1.0); MONOCYTES % (AUTO) 10.9 % (1.7-9.3); NEUTROPHILS # (AUTO) 4.8 K/uL (1.8-7.7); NEUTROPHILS % (AUTO) 59.6 % (42.2-75.2); PLATELET COUNT (AUTO) 310 K/uL (140-450); RED BLOOD CELL COUNT(AUTO) 3.29 MIL/uL (4.20-6.10); RED CELL DISTRIBUTION WIDTH 16.9 % (11.6-13.7)
--- NOTE | 2019-02-16 06:56 | NUR ---
SENT TO LAB URINE SPECIMEN, AWAITING RESULTS
--- NOTE | 2019-02-16 06:57 | NUR ---
PT AWAKE, ALERT ORIENTED X 4, PT BEDREST. PT FOR DEBRIDEMENT TODAY, CONSENT ATTACHED TO CHART, SIGNED BY MOTHER. WILL ENDORSE TO NEXT SHIFT.
--- NOTE | 2019-02-16 07:38 | NUR ---
RECEIVED BEDSIDE REPORT FROM PM RN PT AWAKE IN BED PT ON TELE MONITOR. ALL SAFETY MEASURES ARE IN PLACE . PT HAS BEEN NPO SINCE MIDNIGHT. CONSENT IS SIGNED IN CHART FOR WOUND DRESSING CHANGE IN OR. ALL SAFETY MEASURES ARE IN PLACE PICC LINE INFUSING TPN AT 70ML/HR CALL LIGHT WITHIN REACH. WILL CONTINUE TO MONITOR
[2019-02-16 08:10] VITALS: BP 116/63
--- NOTE | 2019-02-16 08:12 | NUR ---
PT REFUSED HCG CLEANSING BATH
--- NOTE | 2019-02-16 08:45 | NUR ---
PT TAKEN OFF THE UNIT TO OR FOR WOUND DRESSING CHANGE. PT AWAKE ALERT AND ORIENTED X4 ALL SAFETY MEASURES ARE IN PLACE WILL CONTINUE TO MONITOR.
[2019-02-16] MEDS: BLOOD GLUCOSE MONITORING 1 DEV DEV FS SCH ×2 (09:00→19:58)
[2019-02-16 09:19] LABS: ANION GAP 12.5 (8-16); CARBON DIOXIDE 25.4 mmol/L (21-32); POTASSIUM 3.9 mmol/L (3.5-5.1)
[2019-02-16 09:20] LABS: CREATININE 0.9 mg/dL (0.7-1.3); TOTAL BILIRUBIN 0.2 mg/dL (0.0-1.0)
[2019-02-16 09:22] LABS: ALBUMIN 1.5 g/dL (3.4-5.0)
[2019-02-16] MEDS ORDERED: SEVOFLURANE 250 ML BTL INH ONE (09:25)
[2019-02-16] MEDS ORDERED: PROPOFOL 200 MG/20 ML VIAL IV ONE (09:25)
[2019-02-16 09:32] LABS: MAGNESIUM 1.8 mg/dL (1.8-2.4); PHOSPHORUS 4.3 mg/dL (2.5-4.9)
[2019-02-16 09:49] LABS: APPEARANCE,URINE CLEAR (CLEAR); BILIRUBIN,URINE NEGATIVE (NEGATIVE); BLOOD, URINE TRACE-I (NEGATIVE); COLOR,URINE YELLOW (YELLOW); LEUKOCYTE ESTERASE ,URINE NEGATIVE (NEGATIVE); NITRITE, URINE NEGATIVE (NEGATIVE); PH,URINE 5.5 (5.0-9.0); UGLUCOSE NEGATIVE (NEGATIVE)
[2019-02-16] MEDS: HYDROmorphone 1 MG/ML AMP IVP PRN ×3 (10:15→11:32)
[2019-02-16] MEDS ORDERED: NALOXONE 0.4 MG/ML VIAL IVP PRN (10:45)
[2019-02-16] MEDS ORDERED: ONDANSETRON 4 MG/2 ML VIAL IVP PRN ×2 (10:45)
[2019-02-16 10:47] LABS: CALCIUM OXALATE CRYSTALS,UR 0-10 /HPF (None Seen); RBC,URINE 0-5 /HPF (0-5); WBC,URINE 0-5 /HPF (0-5)
--- NOTE | 2019-02-16 10:55 | NUR ---
PT ARRIVED BACK ON THE UNIT FROM OR. PT AWAKE AND ALERT X4 PT APPEARS STABLE AND IN NO APPARENT DISTRESS. RECEIVED REPORT FROM LUCERNE FARMER. PT STATING 10/10 PAIN WILL ADMINISTER PAIN MEDICATIONS PRN ORDERED. PT TPN INFUSING PICC LINE FLUSHED. POST OP VITALS SHEET STARTED WILL CONTINUE TO MONITOR
--- NOTE | 2019-02-16 11:15 | NUR ---
PT SHAKING IN PAIN. PT STATED THIS IS THE MOST SEVERE PAIN HE HAS EVER HAD AND THE PAIN MEDICATION HASNT HELPED DR. GREEN ON THE UNIT INFORMED HIM HE GAVE VERBAL ORDERS FOR 1 TIME DOSE 2MG DILAUDID. ORDER PLACED WILL ADMINISTER ONCE VERIFIED.
[2019-02-16] MEDS ORDERED: HYDROmorphone 1 MG/ML AMP IVP PRN (11:30)
[2019-02-16 12:05] VITALS: BP 124/58
[2019-02-16] MEDS: THERAHONEY GEL 42.5 GM TP SCH (13:00)
--- NOTE | 2019-02-16 13:15 | NUR ---
FREQUENT ROUNDING ON PT PT APPEARS STABLE AND IN NO APPARENT DISTRESS. ALL SAFETY MEASURES ARE IN PLACE. PT BEING MONITORED ON VIA TELE. PT MOTHER IS AT BEDSIDE ALL SAFETY MEASURES ARE IN PLACE WILL CONTINUE TO MONITOR
--- NOTE | 2019-02-16 13:30 | NUR ---
NON ADMINISTERED 2MG DILAUDID DUPLICATE ORDER FROM VERBAL ORDER FROM DR. GREEN ALREADY ADMINISTERED ONE TIME DOSE DILAUDID
--- NOTE | 2019-02-16 14:45 | NUR ---
Mother Shai at bedside, Almas (FNS director ) and I visited patient, we discuss with them the latest weight about 120lbs, i was trying to reweigh patient but patient said do not touch anything on my bed, and I said ok, patient and mother is attentive with almas teaching, I also mention if he wants the psychiatric doctor to visit him and he said yes, endorsed to charge Nurse Martha to follow up with Dr. Courtney, patient said he was turn earlier by the MICROSOFT DYNAMICS MANAGER ARCHITECT.
--- NOTE | 2019-02-16 15:02 | NUR ---
[place] Room Worker and Director Alexus talking to Shai mother of patient in the hallway
--- NOTE | 2019-02-16 15:34 | NUR ---
FREQUENT ROUNDING ON PT PT APPEARS STABLE AND IN NO APPARENT DISTRESS, ALL SAFETY MEASURES ARE IN PLACE WILL CONTINUE TO MONITOR
[2019-02-16] MEDS: ACETAMINOPHEN 650 MG/20.3 ML UDC PO PRN (15:58)
[2019-02-16 16:15] VITALS: BP 116/63
--- NOTE | 2019-02-16 17:34 | NUR ---
FREQUENT ROUNDING ON PT PT APPEARS STABLE AND IN NO APPARENT DISTRESS. ALL SAFETY MEASURES ARE IN PLACE WILL CONTINUE TO MONITOR
--- NOTE | 2019-02-16 19:18 | NUR ---
ENDORSED PT TO PM RN PT AWAKE AND ALERT X 4 PT MOTHER AT BEDSIDE. PT IS ON TELE MONITORING. PT ON TPN INFUSING. ALL SAFETY MEASURES ARE IN PLACE
--- NOTE | 2019-02-16 19:19 | NUR ---
RECEIVED BEDSIDE REPORT FROM DAY RN. PT AT BED AWAKE, ALERT AND ORIENTED X4, COOPERATIVE, CALM, PT BREATHING REGULARLY ON ROOM AIR, LUNG SOUNDS CLEAR THROUGHOUT. PT HAS OPEN WOUNDS ON BILATERAL LOWER EXTREMITIES, DRESSING IN PLACE DEBRIDEMENT DONE TODAY 02/16/[address] ESCOBAR. PATIENT REFUSED TO DO WOUND ASSESSMENT. PT HAS RIGHT UPPER ARM PICC LINE IN PLACE. TPN INFUSING WELL AT 70 ML/HR. HOB 30 DEGREES, SIDE RAILS UP X2, BED AT LOWEST POSITION. PT WITH COLOSTOMY BAG REFUSED ASSESSMENT. ON CONTACT ISOLATION. POC DISCUSSED WITH PT AND MOTHER AT BEDSIDE. CALL LIGHT IS WITHIN REACH. WILL CONTINUE TO MONITOR.
[2019-02-16 20:00] VITALS: BP 98/55
--- NOTE | 2019-02-16 20:08 | NUR ---
PTS VSS. ADMINISTERED PRN DILAUDID FOR 10/10 PAIN. NEW BAG OF TPN NOW INFUSING PER ORDERS. ALL SAFETY MEASURES ARE IN PLACE. REINFORCE TO PT TO CALL WHEN URINATES NEED TO COLLECT UA,URINE CX. VERBALIZED UNDERSTANDING. CALL LIGHT IS WITHIN REACH. WILL CONTINUE TO MONITOR.
[2019-02-16] MEDS: DEXTROSE IV SCH ×3 (20:11)
[2019-02-16] MEDS: AMINO ACIDS 8.5% IV SCH ×3 (20:11)
[2019-02-16] MEDS: MULTIVITAMIN IV SCH ×3 (20:11)
--- NOTE | 2019-02-16 20:48 | NUR ---
ADMINISTERED PRN ZOFRAN IVP PT TOLERATED WELL. UA,URINE CX COLLECTED AND SENT TO LAB. ALL NEEDS MET AT THIS TIME.
[2019-02-16] MEDS: ONDANSETRON 4 MG/2 ML VIAL IVP PRN (20:49)
[2019-02-16 20:58] LABS: APPEARANCE,URINE CLEAR (CLEAR); BILIRUBIN,URINE NEGATIVE (NEGATIVE); BLOOD, URINE 3+ (NEGATIVE); COLOR,URINE YELLOW (YELLOW); LEUKOCYTE ESTERASE ,URINE NEGATIVE (NEGATIVE); NITRITE, URINE NEGATIVE (NEGATIVE); UGLUCOSE NEGATIVE (NEGATIVE)
[2019-02-16 21:08] LABS: WBC,URINE 0-5 /HPF (0-5)
--- NOTE | 2019-02-16 22:30 | NUR ---
PT IS RESTING COMFORTABLY IN BED WATCHING IPAD. NO S/S OF DISTRESS. CALL LIGHT IS WITHIN REACH.
[2019-02-17] VITALS: BP 95/54
[2019-02-17] MEDS: ACETAMINOPHEN 650 MG/20.3 ML UDC PO PRN (00:43)
--- NOTE | 2019-02-17 00:43 | NUR ---
VSS: 99/54 HR 124 97% ELLE 101.7 PRN TYLENOL GIVEN. COOLING MEASURES ARE IN PLACE. CALL LIGHT IS WITHIN REACH. WILL CONTINUE TO MONITOR.
--- NOTE | 2019-02-17 01:30 | NUR ---
PT'S TEMP DOWN TO 98.8. ALL NEEDS MET AT THIS TIME. WILL CONTINUE TO MONITOR.
[2019-02-17] MEDS: HYDROmorphone PFS 2 MG/ML SYR IVP PRN ×6 (03:33→22:07)
[2019-02-17 04:00] VITALS: BP 97/49
--- NOTE | 2019-02-17 04:00 | NUR ---
VITAL SIGNS ARE WITHIN NORMAL LIMITS. ALL SAFETY MEASURES ARE IN PLACE. CALL LIGHT IS WITHIN REACH.
--- NOTE | 2019-02-17 06:35 | NUR ---
ADMINISTERED PRN DILAUDID FOR PAIN 10/10. ALL NEEDS MET AT THIS TIME. SAFETY MEASURES ARE IN PLACE. WILL ENDORSE TO DAY RN.PT IS STABLE
--- NOTE | 2019-02-17 07:27 | NUR ---
SHIFT REPORT RECEIVED FROM BACKHOE OPERATOR NURSE. PT IS SLEEPING ATT HIS TIME. NO SIGNS OF DISTRESS NOTED AT THIS TIME. CALL LIGHT IN REACH.
[2019-02-17 08:00] VITALS: BP_SYST 92; BP_SYST 96; BP_DIAS 45; BP_DIAS 51
--- NOTE | 2019-02-17 09:46 | NUR ---
PT IS SLEEPING AT THIS TIME. PT'S IS SINUS TACHY. PT HAD BREAKFAST. NO SIGNS OF DISTRESS NOTED AT THIS TIME. CALL LIGHT IN REACH.
--- NOTE | 2019-02-17 11:32 | NUR ---
CULTURE SWABS FROM RIGHT AND LEFT LEG/THIGH WOUNDS COLLECTED AND SENT TO LAB ORDERED.
[2019-02-17 12:00] VITALS: BP 92/45
[2019-02-17] MEDS: THERAHONEY GEL 42.5 GM TP SCH (13:00)
--- NOTE | 2019-02-17 13:14 | NUR ---
PT IS RESTING IN BED AT THIS TIME. NO DISTRESS NOTED. PT IS HAVING ICE CHIPS AND WATER. CALL LIGHT IN REACH.
--- NOTE | 2019-02-17 15:00 | NUR ---
PT IS RESTING IN BED AT THIS TIME. NO DISTRESS NOTED. FAMILY BE BEDSIDE.CALL LIGHT IN REACH.
--- NOTE | 2019-02-17 15:39 | NUR ---
02/17/19 RD FOLLOW UP COMPLETED PLEASE REFER TO NUTRITION ASSESSMENT UNDER CARE ACTIVITY FOR ESTIMATED NUTRITIONAL NEEDS. 1. CONTINUE REGULAR DIET W/ENSURE PLANT TID -THIS WILL PROVIDE APPROXIMATELY 2603 KCAL AND 134 GM OF PROTEIN/DAY 2. CONTINUE TPN D10%, AA3% @ 70 ML/HR -CURRENT TPN IS PROVIDING 772 KCAL AND 50 G PROTEIN, WHICH MEETS <50% OF ESTIMATED KCAL AND PROTEIN NEEDS 3. ENCOURAGE INCREASING PO INTAKE 4. ENCOURAGE FAMILY MEMBERS TO BRING FOOD/SUPPLEMENTS OF PATIENTS PREFERENCE 5. RD WILL FOLLOW UP 2-3 DAYS, HIGH RISK ALEXEI JOHNSTON RD
[2019-02-17 16:00] VITALS: BP 93/49
--- NOTE | 2019-02-17 16:25 | NUR ---
DISCLOSURE OF HEALTH INFORMATION CONSENT SIGNED BY PT AND FAXED TO [facility] AND [facility]. FAX CONFIRMATION ATTACHED TO PT'S CHART.
--- NOTE | 2019-02-17 17:00 | NUR ---
PT IS RESTING IN BED AT THIS TIME. NO DISTRESS NOTED. FAMILY BE BEDSIDE.CALL LIGHT IN REACH.
[2019-02-17] MEDS: ONDANSETRON 4 MG/2 ML VIAL IVP PRN (18:44)
--- NOTE | 2019-02-17 19:30 | NUR ---
RECEIVED BEDSIDE REPORT FROM AM SHIFT RN FOR PT'S CONT. OF CARE. PT IS AWARE OF THE MILLER HEAD WET PROCESS ROUTINE. PT IS AAOX4, IS ON PERSONAL INJURY LITIGATION PARALEGAL, ON ROOM AIR, HAS RIGHT UPPER ARM PICC LINE DOUBLE LUMEN, STATES PAIN IS REDUCED BUT NOT RELIEVED. SAFETY MEASURES AND CONTACT PRECAUTION IN PLACE. WILL MONITOR PT THROUGHOUT SHIFT.
--- NOTE | 2019-02-17 19:36 | NUR ---
SHIFT REPORT GIVEN TO YIELD ENGINEER NURSE. PT IS RESTING IN BED AT THIS TIME. NO DISTRESS NOTED. FAMILY BE BEDSIDE.CALL LIGHT IN REACH.
[2019-02-17 20:00] VITALS: BP 112/59
[2019-02-17] MEDS: DEXTROSE IV SCH ×3 (20:54)
[2019-02-17] MEDS: AMINO ACIDS 8.5% IV SCH ×3 (20:54)
[2019-02-17] MEDS: MULTIVITAMIN IV SCH ×3 (20:54)
--- NOTE | 2019-02-17 20:54 | NUR ---
ADMINISTERED SCHEDULED TPN IV CONTINUOUS DRIP AT 70ML/HR. REQUESTED FOR FENTANYL PATCH TO BE GIVEN WITH NEXT PAIN MEDICATION. WILL CONT. TO MONITOR.
[2019-02-17] MEDS ORDERED: fentaNYL 0.1 MG/HR PATCH TD SCH (21:00)
--- NOTE | 2019-02-17 22:07 | NUR ---
PT CALLED AND REQUESTED FOR PAIN MEDICATION. ADMINISTERED PRN IVP PAIN MEDICATION ORDERED. ADMINISTERED SCHEDULED TD PATCH ON RIGHT SHOULDER. PT TOLERATED THEM WELL. PT'S NEEDS MET AT THIS TIME. WILL CONT. TO MONITOR PT.
[2019-02-18] VITALS: BP 92/45
[2019-02-18] MEDS: PIPERACILLIN/TAZOBACTAM 3.375 GM in DEXTROSE 5% 50 ML IV SCH ×4 (00:33→17:22)
--- NOTE | 2019-02-18 00:33 | NUR ---
PT C/O SEVERE PAIN, PT SHAKING AND HR HIGH (144). ADMINISTERED SCHEDULED IV ABX, AND PRN IVP PAIN MEDICATION. WILL CONTINUE TO MONITOR PT.
[2019-02-18] MEDS: HYDROmorphone PFS 2 MG/ML SYR IVP PRN ×8 (00:36→23:56)
--- NOTE | 2019-02-18 02:00 | NUR ---
PT REFUSED TO BE TOUCHED AND ASSESS WOUNDS. REFUSED REPOSITIONING. REFUSED TO EMPTY COLOSTOMY BAG, PER PT, MOTHER EMPTIED IT OUT LAST NIGHT. PT'S NEEDS MET AT THIS TIME.
[2019-02-18 04:00] VITALS: BP 95/42
--- NOTE | 2019-02-18 04:00 | NUR ---
PT IN BED V/S STABLE NO FEVER NOTED.
--- NOTE | 2019-02-18 04:30 | NUR ---
PT C/O PAIN, ADMINISTERED IVP PRN PAIN MEDICATION ORDERED. PT TOLERATED IT WELL. PT DENIES ANY NEEDS AT THIS TIME. WILL CONTINUE TO MONITOR PT.
--- NOTE | 2019-02-18 05:30 | NUR ---
ADMINISTERED SCHEDULED IV ABX ORDERED. PT REQUESTED AND PROVIDED WITH WASHCLOTH. PAIN REDUCED TO 7/10 FROM 9/10. PT DENIED COLOSTOMY BAG TO BE EMPTIED, PER PT, IT ONLY HAS A LITTLE AMOUNT IN IT. WILL CONTINUE TO MONITOR PT.
--- NOTE | 2019-02-18 06:00 | NUR ---
KIKI HUNG ORDERED.
--- NOTE | 2019-02-18 07:12 | NUR ---
RECEIVED PATIENT FROM COMMERCIAL REAL ESTATE UNDERWRITER NURSE. PATIENT IS SLEEPING AT THIS TIME. NO SIGNS OF DISTRESS NOTED. VISIBLE CHEST RISE NOTED. RESPIRATIONS EVEN AND UNLABORED, ROOM AIR. BREATH SOUNDS CLEAR. ON TELE MONITORING. GONZALES IN THE BOTH LOWER EXTREMITIES. DRESSING INTACT. PICC LINE DOUBLE LUMEN IN LEFT UPPER ARM RUNNING NS AT 10 ML/HR TKO AND TPN AT 70 ML/HR. AND PATIENT HAS COLOSTOMY IN PLACE. MODERATE AMOUNT OF LIQUID STOOL PRESENT. BED IN LOW POSITION. CALL LIGHT IS WITHIN REACH. WILL CONTINUE TO MONITOR
--- NOTE | 2019-02-18 07:39 | NUR ---
GIVEN DILAUDID FOR PAIN 10/19. EXPLAINED TO PATIENT INDICATION AND SIDE EFFECTS. PATIENT VERBALIZED UNDERSTANDING. BED IN LOW POSITION. CALL LIGHT IS WITHIN REACH. WILL REASSESS PATIENT
[2019-02-18 08:00] VITALS: BP 98/55
[2019-02-18 09:28] LABS: BASOPHILS # (AUTO) 0.1 K/uL (0.00-0.22); BASOPHILS % (AUTO) 0.9 % (0.0-2.0); EOSINOPHILS # (AUTO) 0.1 K/uL (0-0.4); EOSINOPHILS % (AUTO) 1.3 % (0.0-4.0); HEMATOCRIT 23.8 % (36-52); HEMOGLOBIN 7.7 g/dL (12.0-18.0); LYMPHOCYTES # (AUTO) 0.9 K/uL (2.0-11.5); LYMPHOCYTES % (AUTO) 13.9 % (20.5-51.1); MEAN CORPUSCULAR HEMOGLOBIN 28 pg (27-31); MEAN CORPUSCULAR HGB CONC 32 g/dL (33-37); MEAN CORPUSCULAR VOLUME 86.7 fL (80-94); MONOCYTES # (AUTO) 0.7 K/uL (0.8-1.0); MONOCYTES % (AUTO) 12.1 % (1.7-9.3); NEUTROPHILS # (AUTO) 4.4 K/uL (1.8-7.7); NEUTROPHILS % (AUTO) 71.8 % (42.2-75.2); PLATELET COUNT (AUTO) 259 K/uL (140-450); RED BLOOD CELL COUNT(AUTO) 2.75 MIL/uL (4.20-6.10); RED CELL DISTRIBUTION WIDTH 16.7 % (11.6-13.7); WHITE BLOOD COUNT (AUTO) 6.2 K/uL (4.8-10.8)
--- NOTE | 2019-02-18 09:50 | NUR ---
PATIENT REFUSED REPOSITIONING EVEN THOUGH EDUCATED THE PURPOSE OF REPOSITIONING
[2019-02-18 10:02] LABS: ALBUMIN 1.3 g/dL (3.4-5.0); ANION GAP 10.2 (8-16); CARBON DIOXIDE 27.3 mmol/L (21-32); CREATININE 0.9 mg/dL (0.7-1.3); POTASSIUM 3.5 mmol/L (3.5-5.1); TOTAL BILIRUBIN 0.4 mg/dL (0.0-1.0)
--- NOTE | 2019-02-18 10:41 | NUR ---
GIVEN DILAUDID FOR 9/10 PAIN. BP 101/56. HR 121, O2SAT 99%, RESPIRATIONS EVEN AND UNLABORED, 17. EXPLAINED TO PATIENT INDICATIONS. PATIENT VERBALIZED UNDERSTANDING. WILL REASSESS PATIENT
[2019-02-18 12:00] VITALS: BP 97/56
--- NOTE | 2019-02-18 12:02 | NUR ---
ADMINISTERED ZOSYN VIA IVPB. EXPLAINED TO PATIENT ABX. PATIENT VERBALIZED UNDERSTANDING. BED IN LOW POSITION. CALL LIGHT IS WITHIN REACH. WILL CONTINUE TO MONITOR
[2019-02-18] MEDS: THERAHONEY GEL 42.5 GM TP SCH (13:00)
--- NOTE | 2019-02-18 14:00 | NUR ---
VITAL SIGNS TAKEN. PATIENT REFUSED REPOSITIONING.
--- NOTE | 2019-02-18 14:29 | NUR ---
GIVEN DILAUDID VIA IVP. EXPLAINED TO PATIENT INDICATION AND SIDE EFFECTS. PATIENT VERBALIZED UNDERSTANDING. BP 97/56, HR 116, O2SAT 98%, RESPIRATIONS 17, ROOM AIR. BED IN LOW POSITION. CALL LIGHT IS WITHIN REACH. WILL REASSESS
[2019-02-18 16:00] VITALS: BP 97/53
--- NOTE | 2019-02-18 16:00 | NUR ---
VITAL SIGNS TAKEN. PATIENT REFUSED REPOSITIONING.
--- NOTE | 2019-02-18 18:32 | NUR ---
PATIENT IS RESTING AT THIS TIME. NO SIGNS OF DISTRESS NOTED. PATIENT C/O PAIN 10/19. DILAUDID IS NOT DUE YET. PATIENT IS AWARE. MOM AT BEDSIDE.
--- NOTE | 2019-02-18 19:20 | NUR ---
ENDORSED PATIENT TO OIL BURNER TECHNICIAN NURSE. PATIENT IS IN STABLE CONDITION
--- NOTE | 2019-02-18 19:30 | NUR ---
RECEIVED BEDSIDE REPORT FROM AM SHIFT RN FOR PT'S CONTINUITY OF CARE. PT IS AAOX4, WITH FAM MEMBER AT BEDSIDE. NO C/O PAIN. IS ON HIGH LEAD YARDER, ON ROOM AIR, HAS RIGHT UPPER ARM PICC LINE DOUBLE LUMEN. PT AWARE AND FAMILIAR WITH RIGHT OF WAY CUTTER ROUTINE. SAFETY MEASURES, WOUND/SKIN PROTOCOL, AND ISOLATION PRECAUTION IN PLACE. CALL LIGHT IS WITHIN REACH. PT DENIES ANY NEEDS AT THIS TIME. WILL MONITOR PT THROUGHOUT SHIFT.
[2019-02-18 20:00] VITALS: BP 95/50
--- NOTE | 2019-02-18 20:15 | NUR ---
RECEIVED REPORT FORM ASHLEY CAPPS NIGHTSHIFT NURSE DUE TO CHANGE OF ASSIGNMENT.
--- NOTE | 2019-02-18 20:30 | NUR ---
PT IN BED AOX4, IN BED WATCHING I PAD. PICC LINE ON RIGHT UPPER ARM INTACT AND BOTH LUMENS FLUSHED PATENT. TPN RUNNING AT 70MLS/HR ORDERED.PT V/S FOLLOWS: T 97.5 P 13 R 18 B/P 95/50 02 94% ON ROOM AIR. PT ON WOUND BED, HIS COLOSTOMY IS INTACT AND PT DECLINES TO HAVE IT LOOKED AT, HE SAID IT'S OK. PT ALSO DECLINED TO TURN AND BE REPOSITIONED. ALL CONTACT AND FALLS PRECAUTIONS IN PLACE.
[2019-02-18] MEDS: MULTIVITAMIN IV SCH ×3 (20:31)
[2019-02-18] MEDS: DEXTROSE IV SCH ×3 (20:31)
[2019-02-18] MEDS: AMINO ACIDS 8.5% IV SCH ×3 (20:31)
[2019-02-19] VITALS (7 sets, daily range): BP systolic 86–106; BP diastolic 42–60
--- NOTE | 2019-02-19 | NUR ---
ZOSYN HUNG AND RUNNING ORDERED AT 100MLS/HR. PT C/O SEVERE PAIN 10/19 GIVEN IVP DILAUDID V/S FOLLOWS: T 97.5 P 13 R 18 B/P 95/50 02 94% ON ROOM AIR . PT EMPTIED COLOSTOMY WAS 600MLS AND PT VOIDED 300MLS OF URINE. PT CONTINUERS ON WOUND BED WITH ALL FALLS AND CONTACT PRECAUTIONS IN PLACE.
[2019-02-19] MEDS: PIPERACILLIN/TAZOBACTAM 3.375 GM in DEXTROSE 5% 50 ML IV SCH ×5 (00:56→23:57)
[2019-02-19] MEDS: HYDROmorphone 1 MG/ML AMP IVP PRN (04:36)
--- NOTE | 2019-02-19 07:25 | NUR ---
RECEIVE REPORT FROM NIGHT NURSE, PT IS STABLE, PT ON CONTACT PRECAUTION, TPN RUNNING AT 70 ML/H, PT HAS ROSEMARIE PICC-LINE 2LUMEN, R SHOULDER FENTANYL PATCH, COLOSTOMY BAG, PT WILL BE MEDICATE FOR PAIN BY NIGHT NURSE, PT CALL LIGHT WITHIN REACH.
[2019-02-19] MEDS: HYDROmorphone PFS 2 MG/ML SYR IVP PRN ×6 (07:40→23:53)
--- NOTE | 2019-02-19 10:51 | NUR ---
GAVE PT DILAUDID FOR SEVERE PAIN OF 9/10, PAIN IN LOWER BACK AND NECK. EDUCATION GIVEN, PT TOLERATED WELL, PT IS STABLE AND WATCHING TV. CALL LIGHT WITHIN REACH.
[2019-02-19] MEDS: BLOOD GLUCOSE MONITORING 1 DEV DEV FS SCH ×3 (12:00→23:57)
--- NOTE | 2019-02-19 12:34 | NUR ---
PT DOES NOT WANT HIS PICC LINE DRESSING CHANGED AT THIS SHIFT. PT WANTS PICC LINE DRESSING CHANGED AT FITNESS PROFESSIONAL. PT IS STABLE, CALL LIGHT WITHIN REACH.
[2019-02-19] MEDS: THERAHONEY GEL 42.5 GM TP SCH (13:00)
--- NOTE | 2019-02-19 13:00 | NUR ---
PT REFUSED DRESSING WOUNDS CHANGE, PT EDUCATION GIVEN, PT IS STABLE, CALL LIGHT WITHIN REACH.
--- NOTE | 2019-02-19 13:14 | NUR ---
PT REFUSED CHRISSY, EDUCATION GIVEN, PT VERBALIZE UNDERSTANDING, PT IS STABLE, CALL LIGHT WITHIN REACH.
--- NOTE | 2019-02-19 15:00 | NUR ---
GAVE REPORT TO NURSE ANNA PT NO LONGER WANTS THIS NURSE, PT IS STABLE.
--- NOTE | 2019-02-19 15:28 | NUR ---
ADMINISTERED PRN PAIN MED. PATIENT TOLERATED WELL. EDUCATED ON SIDE EFFECTS. ENDORSED TO NURSE TO DO PAIN REASSESSMENT
--- NOTE | 2019-02-19 17:30 | NUR ---
PATIENT IS RESTING IN BED, REPORTS PAIN, MEDICATIONS TO BE GIVEN IN 45 MINUTES. BED IN LOW POSITION, CALL LIGHT ON AND WITHIN REACH. WILL CONTINUE TO MONITOR.
--- NOTE | 2019-02-19 19:28 | NUR ---
REPORT GIVEN TO MIDDLE SCHOOL TEACHER NURSE FOR CONTINUITY OF CARE.
--- NOTE | 2019-02-19 19:30 | NUR ---
RECEIVED PT ON BED, AWAKE WATCHING A MOVIE ON HIS TABLET, DENIES ANY PAIN, NO SOB NOTED, TPN INFUSING WELL AT 70ML/H VIA RT UA MIDLINE, DRESSING DRY AND INTACT, COLOSTOMY IN PLACE DRAINING LIQUID STOOL SMALL AMOUNT, DRESSING TO [place] LEG DRY AND INTACT, MAINTAINED ON CONTACT ISOLATION, SAFETY MEASURES IN PLACE, CALL LIGHT WITHIN REACH, MOTHER IT THE ROOM.
[2019-02-19] MEDS: MULTIVITAMIN IV SCH ×3 (20:45)
[2019-02-19] MEDS: AMINO ACIDS 8.5% IV SCH ×3 (20:45)
[2019-02-19] MEDS: DEXTROSE IV SCH ×3 (20:45)
--- NOTE | 2019-02-19 21:00 | NUR ---
PT COMPLAINING OF PAIN, MEDICATED PRN WITH DILAUDID IVP, NEW TPN HANGED AND RESUMED RATE AT 70ML/H, PT REFUSED TO REPOSITIONED DUE TO PAIN, RISK AND BENEFITS EXPLAINED, ALL NEEDS ATTENDED.
--- NOTE | 2019-02-19 23:55 | NUR ---
PT CRYING DUE TO PAIN, MEDICATED PRN WITH DILAUDID IVP, BLOOD SUGAR CHECKED WITH 95 RESULT, DUE ZOSYN IVPB ADMINISTERED, CONTINUE TO MONITOR CLOSELY.
[2019-02-20] VITALS: BP 91/47
[2019-02-20] MEDS: HYDROmorphone PFS 2 MG/ML SYR IVP PRN ×6 (02:51→23:31)
--- NOTE | 2019-02-20 03:15 | NUR ---
RT UA PICC LINE DRESSING CHANGED BY GÉNESIS GARVIN, TOLERATED WELL, VITAL SIGNS STABLE, PT WENT BACK TO SLEEP, MONITORED CLOSELY.
[2019-02-20 04:00] VITALS: BP 100/48
[2019-02-20] MEDS: PIPERACILLIN/TAZOBACTAM 3.375 GM in DEXTROSE 5% 50 ML IV SCH ×4 (06:14→23:28)
[2019-02-20] MEDS: BLOOD GLUCOSE MONITORING 1 DEV DEV FS SCH ×4 (06:14→23:40)
--- NOTE | 2019-02-20 06:14 | NUR ---
PT IN PAIN, MEDICATED PRN WITH DILAUDID, BLOOD SUGAR CHECKED WITH 87 RESULT, DUE ZOSYN IVPB ADMINISTERED, TPN INFUSING WELL, MONITORED CLOSELY.
--- NOTE | 2019-02-20 07:15 | NUR ---
PT SLEEPING, NO SIGNS OF DISTRESS, REPORT GIVEN TO GÉNESIS CASTILLO FOR CONTINUITY OF CARE.
--- NOTE | 2019-02-20 07:25 | NUR ---
REPORT RECEIVED FROM BROOMCORN PRESS FEEDER NURSE FOR CONTINUATION OF CARE. PATIENT IS AAOX4, BED IN LOW POSITION, CALL LIGHT ON AND WITHIN REACH. WILL CONTINUE TO MONITOR.
[2019-02-20 08:00] VITALS: BP 100/51
--- NOTE | 2019-02-20 09:24 | NUR ---
(02/20/19) RD FOLLOW UP COMPLETED PLEASE REFER TO NUTRITION PROGRESS NOTE UNDER CARE ACTIVITY FOR ESTIMATED NUTRITION NEEDS. RD RECOMMENDATIONS: 1. CONTINUE REGULAR DIET W/ENSURE PLANT TID -THIS WILL PROVIDE APPROXIMATELY 2603 KCAL AND 134 GM OF PROTEIN/DAY 2. CONTINUE TPN D10%, AA3% @ 70 ML/HR -CURRENT TPN IS PROVIDING 772 KCAL AND 50 G PROTEIN, WHICH MEETS <50% OF ESTIMATED KCAL AND PROTEIN NEEDS 3. ENCOURAGE INCREASING PO INTAKE 4. ENCOURAGE FAMILY MEMBERS TO BRING FOOD/SUPPLEMENTS OF PATIENTS PREFERENCE RD WILL FOLLOW UP 2-3 DAYS, HIGH RISK ANGELA COLE, , RDN
[2019-02-20 10:28] LABS: BASOPHILS # (AUTO) 0.1 K/uL (0.00-0.22); EOSINOPHILS # (AUTO) 0.6 K/uL (0-0.4); HEMOGLOBIN 7.1 g/dL (12.0-18.0); MONOCYTES # (AUTO) 0.8 K/uL (0.8-1.0)
[2019-02-20 10:46] LABS: BASOPHILS % (AUTO) 1.1 % (0.0-2.0); LYMPHOCYTES % (AUTO) 16.5 % (20.5-51.1); MEAN CORPUSCULAR HEMOGLOBIN 28 pg (27-31); MEAN CORPUSCULAR HGB CONC 32 g/dL (33-37); MEAN CORPUSCULAR VOLUME 87.5 fL (80-94); NEUTROPHILS # (AUTO) 3.4 K/uL (1.8-7.7); NEUTROPHILS % (AUTO) 58.4 % (42.2-75.2); PLATELET COUNT (AUTO) 294 K/uL (140-450); RED BLOOD CELL COUNT(AUTO) 2.51 MIL/uL (4.20-6.10); RED CELL DISTRIBUTION WIDTH 16.6 % (11.6-13.7); WHITE BLOOD COUNT (AUTO) 5.9 K/uL (4.8-10.8)
[2019-02-20 10:50] LABS: ALBUMIN 1.3 g/dL (3.4-5.0); ANION GAP 8.5 (8-16); CREATININE 0.8 mg/dL (0.7-1.3); POTASSIUM 3.5 mmol/L (3.5-5.1); TOTAL BILIRUBIN 0.2 mg/dL (0.0-1.0)
[2019-02-20 12:35] VITALS: BP 95/56
[2019-02-20] MEDS: THERAHONEY GEL 42.5 GM TP SCH (13:00)
[2019-02-20 16:45] VITALS: BP 102/59
--- NOTE | 2019-02-20 16:51 | NUR ---
1200 ZOSYN WAS NOT GIVEN, FORGOT TO BE ADMINISTERED. ENDORSED TO KATIUSKA CAPPS AND CHARGE NURSE.
--- NOTE | 2019-02-20 16:54 | NUR ---
RECEIVED REPORT FROM ANNA CAPPS. 1200 ZOSYN WAS NOT ADMINISTERED INFORMED ASSEMBLY MACHINE OFFBEARER. UNABLE TO ADMINISTER NEXT DOSE OF ZOSYN WAS TO CLOSE IN SCHEDULE.
--- NOTE | 2019-02-20 17:34 | NUR ---
FREQUENT ROUNDING ON PT PT APPEARS STABLE AND IN NO APPARENT DISTRESS. ALL SAFETY MEASURES ARE IN PLACE WILL CONTINUE TO MONITOR.
--- NOTE | 2019-02-20 19:21 | NUR ---
ENDORSED PT TO PM RN PT AWAKE IN BED PT APPEARS STABLE AND IN NO APPARENT DISTRESS. ALL SAFETY MEASURES ARE IN PLACE. CALL LIGHT WITHIN REACH.
--- NOTE | 2019-02-20 19:22 | NUR ---
RECEIVED BEDSIDE REPORT FROM DAY SHIFT NURSE KATIUSKA RN, PT STABLE, NO DISTRESS NOTED, ROSEMARIE PICC LINE PATENT, INTACT, INFUSING WELL, PT ON ROOM AIR, NO SOB NOTED, NO C/O PAIN AT THIS MOMENT, COLOSTOMY BAG IN PLACE, PT RESTING, NO DISTRESS NOTED, CALL LIGHT WITHIN REACH, FAMILY AT BEDSIDE, WILL CONTINUE TO MONITOR.
[2019-02-20 20:00] VITALS: BP 96/51
--- NOTE | 2019-02-20 20:32 | NUR ---
PT C/O PAIN, MEDICATION GIVEN, DUE MEDICATION GIVEN, TPN CHANGED, PT TOLERATED WELL, NO DISTRESS NOTED, CALL LIGHT WITHIN REACH, WILL CONTINUE TO MONITOR.
[2019-02-20] MEDS: AMINO ACIDS 8.5% IV SCH ×3 (20:45)
[2019-02-20] MEDS: fentaNYL 0.075 MG/HR PATCH TD SCH (20:45)
[2019-02-20] MEDS: DEXTROSE IV SCH ×3 (20:45)
[2019-02-20] MEDS: MULTIVITAMIN IV SCH ×3 (20:45)
--- NOTE | 2019-02-20 20:54 | NUR ---
DR. RODRIGUEZ NOTIFIED RGARDING RESULT OF CULTURE ON BOTH LEGS WITH MDRO AND SENIOR APPLICATIONS ARCHITECT, STATED HE IS KNOWS ALREADY.
--- NOTE | 2019-02-20 23:31 | NUR ---
PT C/O PAIN, MEDICATION ADMINISTERED, DUE MEDICATION GIVEN, PT TOLERATED WELL, NO DISTRESS NOTED, CALL LIGHT WITHIN REACH,W ILL CONTINUE TO MONITOR.
[2019-02-21] VITALS: BP 106/47
--- NOTE | 2019-02-21 01:00 | NUR ---
PT REFUSED WOUND ASSESSMENT AND PICTURE, EDUCATE PT, PT STATED UNDERSTANDING BUT STILL REFUSED.
[2019-02-21] MEDS: HYDROmorphone PFS 2 MG/ML SYR IVP PRN ×7 (02:33→21:55)
--- NOTE | 2019-02-21 02:33 | NUR ---
PT C/O PAIN, MEDICATION ADMINISTERED, PT TOLERATED WELL, NO DISTRESS NOTED, CALL LIGHT WITHIN REACH, WILL CONTINUE TO MONITOR.
[2019-02-21 04:00] VITALS: BP 90/46
[2019-02-21] MEDS: PIPERACILLIN/TAZOBACTAM 3.375 GM in DEXTROSE 5% 50 ML IV SCH ×4 (05:41→23:38)
[2019-02-21] MEDS: BLOOD GLUCOSE MONITORING 1 DEV DEV FS SCH ×3 (05:45→18:15)
--- NOTE | 2019-02-21 07:20 | NUR ---
ENDORSED PT TO DAY SHIFT NURSE REGGIE RN. PT STABLE, NO DISTRESS NOTED, CALL LIGHT WITHIN REACH.
--- NOTE | 2019-02-21 07:21 | NUR ---
RECEIVED BEDSIDE REPORT FROM OEM SALES MANAGER NURSE FOR CONTINUITY OF CARE. PT IS AWAKE AND RESTING ON BED AT THIS TIME. PT IS AAOX 4 AND ABLE TO MAKE NEEDS KNOWN AND COMMUNICATE APPROPRIATELY. RESPIRATION EVEN AND UNLABORED ON RA. STATED PAIN IS WITHIN TOLERABLE LIMIT,DENIED PAIN, NAUSEA AND VOMITING. NO SIGNS OF DISTRESS NOTED. IV ON R UPPER ARM, CLEAN AND INTACT, INFUSING TPN 70 ML/HR AND NS 10 ML/HR. PT REFUSED TO OPEN THE BLANKET FOR SKIN ASSESSMENT. COLOSTOMY BAG IN PLACE AND PT REFUSED FOR ASSESSMENT. PT IS ABLE TO USE URANAL AT BEDSIDE AND BEDBOUND. DISCUSSED PLAN OF CARE WITH PT AND PT VERBALIZED UNDERSTANDING. SAFETY MEASURES IN PLACE. BED IN LOW POSITION AND CALL LIGHT WITHIN REACH. INSTRUCTED PT TO USE THE CALL LIGHT FOR ANY ASSISTANCE AND PT WAS AWARE.
[2019-02-21 08:00] VITALS: BP 93/52
--- NOTE | 2019-02-21 09:22 | NUR ---
ANSWERED PT'S CALL LIGHT AND PT COMPLAINED 9/10 PAIN. REFUSED TO REPOSITION. VITAL SIGNS TAKEN; BP 91/48, PULSE 100, SPO2 100% ON RA, RR 15, PAIN 9/10, MEDICATED WITH PRN PAIN MED, MED ED PROVIDED AND PT TOLERATED WELL. ASSISTED PT TO OPEN HIS ENSURE AND VEGGIE CHIPS. ENCOURAGED PT TO EAT HIS BREAKFAST AND PT REPLIED " I ATE A LITTLE BIT, BUT I WILL DRINK THE ENSURE." PT REFUSED TO BE TOUCHED AND [facility], EDUCATION PROVIDED AND PT INSISTED NOT WANTING IT DUE TO FEAR OF PAIN. NO SIGNS OF DISTRESS NOTED. SAFETY MEASURES IN PLACE. BED IN LOW POSITION AND CALL LIGHT WITHIN REACH. INSTRUCTED PT TO USE THE CALL LIGHT FOR ANY ASSISTANCE AND PT SAID " I WILL."
--- NOTE | 2019-02-21 10:05 | NUR ---
ATTEMPTED TO REPOSITION PT WITH GRAPHIC COORDINATOR. PT REFUSED AND SAID " NO, DON'T MOVE ME. I DONT WANT TO BE HURT." SKIN CARE EDUCATION PROVIDED AND PT INSISTED NOT TO TURN AND TOUCH. NO SIGNS OF DISTRESS NOTED. SAFETY MEASURES IN PLACE. BED IN LOW POSITION AND CALL LIGHT WITHIN REACH. INSTRUCTED PT TO USE THE CALL LIGHT FOR ANY ASSISTANCE AND PT WAS AWARE.
--- NOTE | 2019-02-21 10:22 | NUR ---
PT'S PREVIOUS MEDICAL RECORDS FROM [facility] RECEIVED BY FAX REQUESTED. KATHRYN WREN MADE AWARE.
--- NOTE | 2019-02-21 11:46 | NUR ---
PT AWAKE AND WATCHING TV ON AT THIS TIME. DENIED NAUSEA, VOMITING, STATED "PAIN IS COMING BACK SLOWLY, I AM STILL OK NOW." NO SIGNS OF DISTRESS NOTED. TELE MONITOR ATTACHED. SAFETY MEASURES IN PLACE. BED IN LOW POSITION AND CALL LIGHT WITHIN REACH. INSTRUCTED PT TO USE THE CALL LIGHT FOR ANY ASSISTANCE AND PT WAS AWARE.
[2019-02-21 12:00] VITALS: BP 102/48
--- NOTE | 2019-02-21 12:08 | NUR ---
ADMINISTERED ZOSYN VIA IVPB PER MD ORDER, MED ED PROVIDED TO PT AND PT VERBALIZED. CHECKED BLOOD GLUCOSE AND RECEIVED 73, NO COVERAGE NEEDED. PT AWAKE AND EATING VEGGIE CHIPS AT THIS TIME. NO SIGNS OF DISTRESS NOTED TELE MONITOR ATTACHED, SAFETY MEASURES IN PLACE.
--- NOTE | 2019-02-21 12:16 | NUR ---
ENDORSED PT AT BEDSIDE TO CHAMBER OF [employer] DIVISION MANAGER NURSE FOR CONTINUITY OF CARE. PT AWAKE AND EATING VEGGIE CHIPS. NO SIGNS OF DISTRESS NOTED. TELE MONITOR ATTACHED. SAFETY MEASURES IN PLACE. BED IN LOW POSITION AND CALL LIGHT WITHIN REACH. BED ALARM ACTIVATED.
--- NOTE | 2019-02-21 12:25 | NUR ---
RECEIVED REPORT FROM GÉNESIS PAREDES. PATIENT IS RESTING IN BED, NO COMPLAINTS AT THIS TIME. PT IS FULL CODE, WITH MULTIPLE ALLERGIES. PATIENT HAS A PICC LINE TO RIGHT UPPER ARM WITH TPN INFUSING AT 70ML/HR AND NORMAL SALINE INFUSING AT 10ML/HR. WILL REVIEW AND CONTINUE WITH PLAN OF CARE FOR .
--- NOTE | 2019-02-21 12:52 | NUR ---
ADMINISTERED PAIN MEDICATION. VITAL SIGNS STABLE PRIOR. PATIENT IS SITTING IN BED EATING VEGGIE CHIPS, NO FURTHER COMPLAINTS
[2019-02-21] MEDS: THERAHONEY GEL 42.5 GM TP SCH (13:00)
--- NOTE | 2019-02-21 15:30 | NUR ---
ADMINISTERED PAIN MEDICATION FOR PAIN 10/19. WILL RE-ASSESS PAIN LEVEL PATIENT IS SITTING IN BED EATING CHIPS, NO COMPLAINTS AT THIS TIME.
[2019-02-21 16:00] VITALS: BP 95/56
--- NOTE | 2019-02-21 18:18 | NUR ---
ADMINISTERED PAIN MEDICATION. BLOOD SUGAR OF 84, NO INSULIN NEEDED. BEGAN IVPB ZOSYN NEXT DOSE. PATIENT RESTING IN BED, FAMILY AT BEDSIDE. WILL ENDORSE TO NIGHT NURSE FOR CONTINUITY OF CARE
--- NOTE | 2019-02-21 19:25 | NUR ---
RECEIVED PATIENT FROM AM SHIFT NURSE IN STABLE CONDITION. TELE PATIENT. RESPIRATIONS EVEN, UNLABORED. PICC TO RIGHT UPPER ARM PATENT AND INTACT. NO C/O PAIN. NO S/SX ACUTE DISTRESS. FAMILY AT BEDSIDE. CALL LIGHT WITHIN REACH. WILL CONTINUE TO MONITOR.
[2019-02-21 20:00] VITALS: BP 96/51
[2019-02-21] MEDS: MULTIVITAMIN IV SCH ×3 (20:20)
[2019-02-21] MEDS: DEXTROSE IV SCH ×3 (20:20)
[2019-02-21] MEDS: AMINO ACIDS 8.5% IV SCH ×3 (20:20)
--- NOTE | 2019-02-21 21:55 | NUR ---
PATIENT C/O ACHING BACK PAIN 10/19. MEDICATED ORDERED. WILL CONTINUE TO MONITOR.
--- NOTE | 2019-02-21 22:55 | NUR ---
REASSESSED PAIN LEVEL AT A TOLERABLE PAIN LEVEL FOR PATIENT. NO S/SX ACUTE DISTRESS. CALL LIGHT WITHIN REACH. WILL CONTINUE TO MONITOR.
[2019-02-22] VITALS: BP 95/55
[2019-02-22] MEDS: BLOOD GLUCOSE MONITORING 1 DEV DEV FS SCH ×4 (00:08→18:02)
--- NOTE | 2019-02-22 00:15 | NUR ---
PATIENT IN BED WITH NO S/SX ACUTE DISTRESS. BLOOD GLUCOSE 79 MG/DL. NO COVERAGE GIVEN. DUE MEDS GIVEN. CONTINUES ON INFUSION VIA PICC, INFUSING WELL. CALL LIGHT WITHIN REACH. WILL CONTINUE TO MONITOR.
[2019-02-22] MEDS: HYDROmorphone PFS 2 MG/ML SYR IVP PRN ×7 (01:18→21:00)
--- NOTE | 2019-02-22 02:00 | NUR ---
MADE ROUNDS. PATIENT IN STABLE CONDITION. NO C/O PAIN. NO S/SX ACUTE DISTRESS. CALL LIGHT WITHIN REACH. WILL CONTINUE TO MONITOR.
--- NOTE | 2019-02-22 03:10 | NUR ---
PATIENT CONTINUES IN STABLE CONDITION. PAIN IS AT A TOLERABLE LEVEL. NO S/SX ACUTE DISTRESS. CALL LIGHT WITHIN REACH. WILL CONTINUE TO MONITOR.
[2019-02-22 04:04] VITALS: BP 92/48
--- NOTE | 2019-02-22 05:10 | NUR ---
MADE ROUNDS. PATIENT CONTINUES IN STABLE CONDITION. NO S/SX ACUTE DISTRESS. CALL LIGHT WITHIN REACH. WILL CONTINUE TO MONITOR.
[2019-02-22] MEDS: PIPERACILLIN/TAZOBACTAM 3.375 GM in DEXTROSE 5% 50 ML IV SCH ×3 (05:13→17:57)
--- NOTE | 2019-02-22 06:07 | NUR ---
BLOOD SUGAR 107 MG/DL. NO COVERAGE ADMINISTERED. NO S/SX ACUTE DISTRESS. CALL LIGHT WITHIN REACH. WILL CONTINUE TO MONITOR.
--- NOTE | 2019-02-22 07:24 | NUR ---
ENDORSED PATIENT IN STABLE CONDITION TO AM SHIFT NURSE FOR CONTINUITY OF CARE.
--- NOTE | 2019-02-22 07:25 | NUR ---
RECEIVED BEDSIDE REPORT FROM REFERENCE DATA EXPERT NURSE. PATIENT IS AWAKE, ALERT AND ORIENTEDX4. NO SIGNS OF DISTRESS ON RA. SKIN HAS MULTIPLE WOUNDS. PICC LINE ON ROSEMARIE DOUBLE LUMEN PICC. CLEAN, DRY AND INTACT. COLOSTOMY IN PLACE, PATIENTS URINARY CONTINENT. BEDBOUND. ABLE TO MAKE NEEDS KNOWN. BED IN LOW POSITION, HILL ROM BED. CALL LIGHT WITHIN REACH. WILL CONTINUE TO MONITOR THE PATIENT.
[2019-02-22 08:00] VITALS: BP 92/40
--- NOTE | 2019-02-22 08:50 | NUR ---
ASKED PATIENT IF WE CAN TURN HIM. HE REFUSED. HE SAID HE TURNED LAST NIGHT. PATIENT EDUCATED ON THE RISKS OF NOT TURNING. VERBALIZED UNDERSTANDING. ALSO EXPLAINED THE IMPORTANCE OF USING INCENTIVE SPIROMETER. PATIENT SAID HE WILL USE IT WHEN HIS MOM COMES. EDUCATED ON RISKS OF NOT USING IT QHR. PATIENT VERBALIZED UNDERSTANDING AND SAID HE WILL USE IT LATER. WILL CONTINUE TO MONITOR THE PATIENT
[2019-02-22 09:03] LABS: ALBUMIN 1.3 g/dL (3.4-5.0); CREATININE 0.8 mg/dL (0.7-1.3); TOTAL BILIRUBIN 0.2 mg/dL (0.0-1.0)
[2019-02-22 09:08] LABS: ANION GAP 8.6 (8-16); CARBON DIOXIDE 29.4 mmol/L (21-32)
[2019-02-22 09:12] LABS: BASOPHILS # (AUTO) 0.1 K/uL (0.00-0.22); BASOPHILS % (AUTO) 0.8 % (0.0-2.0); EOSINOPHILS # (AUTO) 0.8 K/uL (0-0.4); EOSINOPHILS % (AUTO) 11.5 % (0.0-4.0); MEAN CORPUSCULAR VOLUME 87.2 fL (80-94); MONOCYTES # (AUTO) 0.7 K/uL (0.8-1.0); NEUTROPHILS # (AUTO) 3.7 K/uL (1.8-7.7); RED CELL DISTRIBUTION WIDTH 16.7 % (11.6-13.7)
[2019-02-22 09:17] LABS: HEMOGLOBIN 7.1 g/dL (12.0-18.0); LYMPHOCYTES # (AUTO) 1.8 K/uL (2.0-11.5); LYMPHOCYTES % (AUTO) 25.1 % (20.5-51.1); MEAN CORPUSCULAR HEMOGLOBIN 28 pg (27-31); MEAN CORPUSCULAR HGB CONC 32 g/dL (33-37); NEUTROPHILS % (AUTO) 52.6 % (42.2-75.2); PLATELET COUNT (AUTO) 357 K/uL (140-450); RED BLOOD CELL COUNT(AUTO) 2.52 MIL/uL (4.20-6.10)
--- NOTE | 2019-02-22 10:30 | NUR ---
PATIENT IN NO DISTRESS. PATIENT STILL REFUSES TO BE TURNED AND USE IS, HE SAID HES SNACKING RIGHT NOW. PATIENT KNOWS THE RISKS
[2019-02-22 12:00] VITALS: BP 95/48
--- NOTE | 2019-02-22 12:03 | NUR ---
ADMINISTERED MEDS. PATIENT TOLERATED WELL. EDUCATED ON MEDS. BS 93. PATIENT STILL REFUSED TO TURN AT THIS TIME AND TO DO INCENTIVE SPIROMETER, PATIENT UNDERSTANDS THE RISK, EDUCATED ON RISKS TO PATIENT AND BENEFITS. WILL CONTINUE TO MONITOR THE PATIENT.
[2019-02-22] MEDS: THERAHONEY GEL 42.5 GM TP SCH (12:12)
--- NOTE | 2019-02-22 12:48 | NUR ---
COLOSTOMY LEAKED. CHANGED COLOSTOMY. PATIENT TOLERATED WELL. WILL CONTINUE TO MONITOR THE PATIENT
--- NOTE | 2019-02-22 14:50 | NUR ---
ADMINISTERED PRN PAIN MED. PATIENT TOLERATED WELL. EDUCATED ON SIDE EFFECTS. PATIENT REFUSING TO TURN AND DO INCENTIVE SPIROMETER STILL AT THIS TIME. EDUCATED ON THE RISKS AGAIN, VERBALIZED UNDERSTANDING. WILL CONTINUE TO MONITOR THE PATIENT
[2019-02-22 16:00] VITALS: BP 102/61
--- NOTE | 2019-02-22 16:20 | NUR ---
PATIENT STILL REFUSES TO TURN AND USE INCENTIVE SPIROMETER. PATIENT UNDERSTANDS THE RISKS.
--- NOTE | 2019-02-22 17:55 | NUR ---
ADMINISTERED PRN PAIN MED. PATIENT TOLERATED WELL. EDUCATED ON MEDS. PATIENT REFUSES TO TURN AND USE INCENTIVE SPIROMETER. UNDERSTANDS RISKS.
--- NOTE | 2019-02-22 19:24 | NUR ---
GAVE BEDSIDE REPORT TO NAPHTHALENE STILL OPERATOR NURSE. PATIENT ENDORSED IN STABLE CONDITION
--- NOTE | 2019-02-22 19:25 | NUR ---
RECEIVED PT IN STABLE CONDITION FROM AM NURSE. AWAKE,ALERT AND ORIENTED X4. ON TELE MONITOR. BEDREST. WITH CHRONIC WOUND ON BLE AND SACRAL AREA. COLOSTOMY IN PLACED. WITH PICC LINE X2 LUMEN ON THE RT UPPER ARM. TPN INFUSING WELL. ON CONTACT ISOLATION. PT AWARE OF THE PRECAUTIONS. PT JUST SIGNED CONSENT FOR THE DEBRIDEMENT OF WOUNDS TOMORROW. PLAN OF CARE DISCUSSED AND VERBALIZED UNDERSTANDING. BED ON LOW POSITION. SIDE RAILS UP X2. WITH CALL LIGHT AND URINAL WITHIN EASY REACH. WILL CONTINUE TO MONITOR.
[2019-02-22 20:00] VITALS: BP 97/49
[2019-02-22] MEDS ORDERED: MULTIVITAMIN IV SCH ×4 (20:00)
[2019-02-22] MEDS ORDERED: DEXTROSE IV SCH ×4 (20:00)
[2019-02-22] MEDS ORDERED: [UNRECOGNIZED DRUG - OTHER] IV SCH ×4 (20:00)
[2019-02-22] MEDS ORDERED: AMINO ACIDS 8.5% IV SCH ×4 (20:00)
--- NOTE | 2019-02-22 22:20 | NUR ---
MADE ROUNDS. PT IS AWAKE. PAIN IS BETTER. WILL CONTINUE TO MONITOR.
[2019-02-23] VITALS (7 sets, daily range): BP systolic 86–109; BP diastolic 39–62
--- NOTE | 2019-02-23 00:05 | NUR ---
INSTRUCTED PT REGARDING NPO STATUS AFTER MN FOR THE SURGERY IN AM. VERBALIZED UNDERSTANDING.
[2019-02-23] MEDS: BLOOD GLUCOSE MONITORING 1 DEV DEV FS SCH ×5 (00:12→23:28)
[2019-02-23] MEDS: HYDROmorphone PFS 2 MG/ML SYR IVP PRN ×8 (00:12→23:21)
[2019-02-23] MEDS: PIPERACILLIN/TAZOBACTAM 3.375 GM in DEXTROSE 5% 50 ML IV SCH ×5 (00:12→23:28)
--- NOTE | 2019-02-23 02:00 | NUR ---
PT ASLEEP. NO S/S OF ANY DISCOMFORT NOTED. WILL CONTINUE TO MONITOR.
--- NOTE | 2019-02-23 04:00 | NUR ---
PT ASLEEP. WILL TAKE VITAL SIGNS LATER. NO DISCOMFORT NOTED.
[2019-02-23] MEDS ORDERED: POTASSIUM CHL 20 MEQ/ 1/2 NS 1,000 ML IV ONE (05:19)
--- NOTE | 2019-02-23 07:20 | NUR ---
ENDORSED PT IN STABLE CONDITION TO AM NURSE.
--- NOTE | 2019-02-23 07:21 | NUR ---
RECEIVED BEDSIDE REPORT FROM MACHINE SILVER STRIPPER NURSE. PATIENT IS AWAKE, ALERT AND ORIENTEDX4. NO SIGNS OF DISTRESS ON RA. SKIN HAS MULTIPLE GONZALES W DRESSINGS. PATIENT WILL GET WOUND DEBRIDEMENT IN OR. BEDBOUND, REFUSES TO BE TURNED. ROSEMARIE DOUBLE LUMEN PICC LINE INFUSING TPN AT 70. CLEAN, DRY AND INTACT. NPO EXCEPT MEDS. CONTACT PRECAUTIONS. COLOSTOMY. CONTINENT. BED IN LOW POSITION. CALL LIGHT WITHIN REACH. FALL RISK PROTOCOL IN PLACE
[2019-02-23] MEDS ORDERED: PROPOFOL 200 MG/20 ML VIAL IV ONE (08:35)
[2019-02-23] MEDS ORDERED: SEVOFLURANE 250 ML BTL INH ONE (08:35)
--- NOTE | 2019-02-23 08:40 | NUR ---
PATIENT PICKED UP BY OR. PATIENT LEFT IN STABLE CONDITION
[2019-02-23] MEDS ORDERED: NACL 0.9% 1,000 ML IV SCH (09:42)
[2019-02-23] MEDS ORDERED: MEPERIDINE 25 MG/ML SYR IVP PRN (09:45)
[2019-02-23] MEDS ORDERED: diphenhydrAMINE 50 MG/ML VIAL IVP PRN (09:45)
[2019-02-23] MEDS ORDERED: ONDANSETRON 4 MG/2 ML VIAL IVP PRN (09:45)
[2019-02-23] MEDS ORDERED: HYDROmorphone 1 MG/ML AMP IVP PRN ×2 (09:45→10:25)
--- NOTE | 2019-02-23 10:36 | NUR ---
PATIENT BACK FROM OR IN 10 PAIN. ADMINISTERED PRN PAIN MED FOR BREAKTHROUGH PAIN. PATIENT OK WITH TURNING AT THIS TIME. PATIENT TURNED WITH RESOURCE ROOM TEACHER. WILL CONTINUE TO MONITOR THE PATIENT.
--- NOTE | 2019-02-23 11:35 | NUR ---
ADMINISTERED PRN PAIN MEDS. PATIENT TOLERATED WELL. PATIENT TURNED. TOLERATED WELL. WILL CONTINUE TO MONITOR THE PATIENT. PATIENT REFUSED TO USE INCENTIVE SPIROMETER AT THIS TIME. EDUCATED ON RISKS
[2019-02-23] MEDS: THERAHONEY GEL 42.5 GM TP SCH (12:17)
[2019-02-23] MEDS ORDERED: KETOROLAC 15 MG/ML VIAL IVP SCH (12:45)
--- NOTE | 2019-02-23 12:46 | NUR ---
DR SHEA MADE AWARE PATIENT IS IN A LOT OF PAIN. HE ORDERED TORADOL. ADMINISTERED ONE TIME DONE TORADOL. PATIENT TOLERATED WELL. WILL CONTINUE TO MONITOR
--- NOTE | 2019-02-23 14:10 | NUR ---
PATIENT REFUSES TO TURN OR USE INCENTIVE SPIROMETER, EDUCATED ON RISKS. PATIENT UNDERSTANDS THE RISKS
--- NOTE | 2019-02-23 15:07 | NUR ---
02/23/19 RD FOLLOW UP COMPLETED PLEASE REFER TO NUTRITION ASSESSMENT UNDER CARE ACTIVITY FOR ESTIMATED NUTRITIONAL NEEDS. 1. CONTINUE REGULAR DIET W/ENSURE PLANT TID AND RODRIGUEZ BID -THIS WILL PROVIDE APPROXIMATELY 2603 KCAL AND 134 GM OF PROTEIN/DAY 2. CONTINUE TPN D10%, AA3% @ 70 ML/HR AND LIPIDS 10% 75 ML -CURRENT TPN IS PROVIDING 847 KCAL AND 50.4 G PROTEIN, WHICH MEETS <50% OF ESTIMATED KCAL AND PROTEIN NEEDS 3. ENCOURAGE INCREASING PO INTAKE 4. ENCOURAGE FAMILY MEMBERS TO BRING FOOD/SUPPLEMENTS OF PATIENTS PREFERENCE 5. RD WILL FOLLOW UP 2-3 DAYS, HIGH RISK ALEXEI JOHNSTON RD
--- NOTE | 2019-02-23 15:13 | NUR ---
PATIENT SLEEPING AT THIS TIME. SPOKE TO PATIENTS MOM ABOUT GOALS OF INCREASING WEIGHT, PROPELLER TESTER SPOKE TO THE PATIENT MAYBE ADDING MORE SUPPLEMENTS AND SPOKE TO PHARMACIST, THEY SAID THEY WILL SLOWLY INCREASE DEXTROSE. TOLD HER THE GOAL IS 2 POUNDS A WEEK. SHE AGREED. SHE SAID SHE WILL PUSH HIM TO DRINK THE ENSURE.
--- NOTE | 2019-02-23 17:10 | NUR ---
PATIENT REFUSING TO TURN AT THIS TIME. HE SAID HE IS COMFORTABLE. HE UNDERSTANDS THE RISKS
--- NOTE | 2019-02-23 19:05 | NUR ---
GAVE BEDSIDE REPORT TO FLOOR COVERER NURSE. PATIENT ENDORSED IN STABLE CONDITION
--- NOTE | 2019-02-23 19:10 | NUR ---
RECEIVED PT ON BED SLEEPING, EASILY AROUSABLE, DENIES ANY PAIN, NO SOB NOTED, TPN INFUSING WELL AT 70ML/H VIA RT UA MIDLINE, DRESSING DRY AND INTACT, COLOSTOMY IN PLACE DRAINING LIQUID STOOL SMALL AMOUNT, DRESSING TO SHAMEKA LEG DRY AND INTACT, MAINTAINED ON CONTACT ISOLATION, SAFETY MEASURES IN PLACE, CALL LIGHT WITHIN REACH, MOTHER IN THE ROOM.
[2019-02-23] MEDS ORDERED: [UNRECOGNIZED DRUG - OTHER] IV SCH ×4 (20:00)
[2019-02-23] MEDS ORDERED: MULTIVITAMIN IV SCH ×4 (20:00)
[2019-02-23] MEDS ORDERED: AMINO ACIDS 8.5% IV SCH ×4 (20:00)
[2019-02-23] MEDS ORDERED: DEXTROSE IV SCH ×4 (20:00)
--- NOTE | 2019-02-23 20:35 | NUR ---
PT IN PAIN, MEDICATED PRN WITH DILAUDID IVP, NEW TPN BAG HANGED AT 70ML/H, DURAGESIC PATCH APPLIED TO SHAMEKA UPPER ARM, ALL NEEDS ATTENDED.
[2019-02-23] MEDS: fentaNYL 0.075 MG/HR PATCH TD SCH (20:50)
--- NOTE | 2019-02-23 22:00 | NUR ---
ROUNDS MADE, SEEN PT SLEEPING, NO SIGNS OF DISTRESS, MONITORED CLOSELY.
--- NOTE | 2019-02-23 23:30 | NUR ---
PT COMPLAINING OF PAIN, VITAL SIGNS TAKEN, BP ON THE LOW SIDE BUT STABLE, MEDICATED WITH DILAUDID FOR PAIN, BLOOD SUGAR CHECKED WITH 96 RESULT, DUE ZOSYN IVPB ADMINISTERED, PT REFUSED TO BE REPOSITIONED, RISK AND BENEFITS EXPLAINED, CONTINUE TO MONITOR CLOSELY.
[2019-02-24] VITALS: BP 92/48
--- NOTE | 2019-02-24 03:00 | NUR ---
ROUNDS MADE, SEEN PT SLEEPING, NO SIGNS OF PAIN, MONITORED CLOSELY.
[2019-02-24 04:50] VITALS: BP 101/50
[2019-02-24] MEDS: HYDROmorphone PFS 2 MG/ML SYR IVP PRN ×7 (04:50→23:40)
--- NOTE | 2019-02-24 04:50 | NUR ---
PT COMPLAINING OF PAIN, VITAL SIGNS STABLE, MEDICATED PRN FOR PAIN WITH DILAUDID IVP, MONITORED CLOSELY.
[2019-02-24] MEDS: PIPERACILLIN/TAZOBACTAM 3.375 GM in DEXTROSE 5% 50 ML IV SCH ×4 (05:31→23:48)
[2019-02-24] MEDS: BLOOD GLUCOSE MONITORING 1 DEV DEV FS SCH ×3 (05:32→17:44)
--- NOTE | 2019-02-24 05:40 | NUR ---
PT SLEEPING, EASILY AROUSABLE, BLOOD SUGAR CHECKED WITH 88 RESULT, DUE ZOSYN IVPB ADMINISTERED, MONITORED CLOSELY.
--- NOTE | 2019-02-24 07:04 | NUR ---
PT ASLEEP, NO DISTRESS NOTED, BEDSIDE REPORT GIVEN TO GÉNESIS SIMON FOR CONTINUITY OF CARE.
--- NOTE | 2019-02-24 07:05 | NUR ---
RECEIVED REPORT FROM NIGHT NURSE. PATIENT IS IN STABLE CONDITION. PT ASLEEP, EASILY AROUSABLE. MIDLINE INTACT AND PATENT TO ROSEMARIE WITH TPN INFUSING @ 70ML/HR, TOLERATING WELL. BED IN LOW POSITION. SAFETY MEASURES IN PLACE. CALL LIGHT WITHIN REACH.
[2019-02-24 08:00] VITALS: BP 92/56
--- NOTE | 2019-02-24 09:00 | NUR ---
PATIENT IS AAOX4. ABLE TO MAKE NEEDS KNOWN. NO S/S OF DISTRESS NOTED. CALL LIGHT WITHIN REACH.
--- NOTE | 2019-02-24 10:00 | NUR ---
PAGED DR. GAO FOR HGB LEVEL 7.0
[2019-02-24 10:24] LABS: POTASSIUM 4.1 mmol/L (3.5-5.1)
[2019-02-24 10:25] LABS: ANION GAP 12.4 (8-16); CARBON DIOXIDE 26.7 mmol/L (21-32); CREATININE 0.9 mg/dL (0.7-1.3); TOTAL BILIRUBIN 0.3 mg/dL (0.0-1.0)
[2019-02-24 10:26] LABS: ALBUMIN 1.3 g/dL (3.4-5.0)
--- NOTE | 2019-02-24 10:30 | NUR ---
RECEIVED CALL BACK FROM DR. GAO. NOTIFIED IN REGARDS TO HGB LEVEL 7.0, RECEIVED ORDER TO TYPE AND CROSS MATCH AND TRANSFUSE 1 UNIT OF BLOOD TODAY.
[2019-02-24 12:00] VITALS: BP 98/40
[2019-02-24] MEDS ORDERED: TPN PER PHARMACY MC PRN (12:10)
--- NOTE | 2019-02-24 12:30 | NUR ---
PATIENT IS ALERT, AWAKE, ORIENTED X4, WATCHING TV. NO S/S OF DISTRESS NOTED. BG 78 WITH NO COVERAGE. ABLE TO MAKE NEEDS KNOWN. CALL LIGHT WITHIN REACH. BLOOD TRANSFUSION STILL PENDING.
[2019-02-24] MEDS ORDERED: DEXTROSE 50% 50 ML SYR IVP PRN (12:40)
[2019-02-24] MEDS ORDERED: INSULIN LISPRO SLIDING SCALE 100 UNITS/ML VIAL SUBQ PRN (12:40)
[2019-02-24] MEDS: THERAHONEY GEL 42.5 GM TP SCH (13:00)
--- NOTE | 2019-02-24 14:30 | NUR ---
ROUNDS MADE. PATIENT IS ALERT, AWAKE, ORIENTED X4, WATCHING TV. NO S/S OF DISTRESS NOTED. ABLE TO MAKE NEEDS KNOWN. CALL LIGHT WITHIN REACH. BLOOD TRANSFUSION STILL PENDING.
[2019-02-24 16:00] VITALS: BP 91/46
--- NOTE | 2019-02-24 16:30 | NUR ---
PATIENT IS ALERT, AWAKE, ORIENTED X4, WATCHING TV. TPN STILL INFUSING @ 70ML/HR VIA ROSEMARIE PICC LINE, TOLERATING WELL. NO S/S OF DISTRESS NOTED. ABLE TO MAKE NEEDS KNOWN. MOTHER AT BEDSIDE. CALL LIGHT WITHIN REACH. BLOOD TRANSFUSION STILL PENDING.
--- NOTE | 2019-02-24 18:49 | NUR ---
PATIENT REMAINS IN STABLE CONDITION. ALERT, ORIENTED X4, ABLE TO MAKE NEEDS KNOWN. PT WATCHING TV, NO S/S OF DISTRESS NOTED. CALL LIGHT WITHIN REACH. MOTHER AT BEDSIDE. WILL ENDORSE TO NIGHT NURSE FOR CONTINUITY OF CARE.
--- NOTE | 2019-02-24 19:45 | NUR ---
VITAL SIGNS STABLE, AFEBRILE, BLOOD TRANSFUSION WITH PRBC STARTED, VITAL SIGNS MONITORED PER PROTOCOL, WILL MONITOR FOR REACTION, EDUCATION PROVIDED TO PT AND MOTHER AT BEDSIDE, TOLERABLE PAIN AT THIS TIME, MADE AWARE OF NEXT DUE PAIN MEDICATION, MONITORED CLOSELY.
[2019-02-24 20:00] VITALS: BP 92/45
[2019-02-24] MEDS: AMINO ACIDS 8.5% IV SCH ×4 (20:08)
[2019-02-24] MEDS: DEXTROSE IV SCH ×4 (20:08)
[2019-02-24] MEDS: [UNRECOGNIZED DRUG - OTHER] IV SCH ×4 (20:08)
[2019-02-24] MEDS: MULTIVITAMIN IV SCH ×4 (20:08)
--- NOTE | 2019-02-24 22:20 | NUR ---
SEEN PT SLEEPING, EASILY AROUSABLE, BLOOD TRANSFUSION ON-GOING, NO REACTION NOTED, VITAL SIGNS MONITORED, AFEBRILE, MONITORED CLOSELY.
--- NOTE | 2019-02-24 23:00 | NUR ---
BLOOD TRANSFUSION DONE, VITAL SIGNS TAKEN, BP ON THE LOW SIDE BUT STABLE, NO REACTION NOTED, PT WATCHING A MOVIE ON HIS TABLET, RESUMED IVF AT TKO RATE, MONITORED CLOSELY.
--- NOTE | 2019-02-24 23:40 | NUR ---
PT COMPLAINING OF PAIN, VITAL SIGNS TAKEN, BP ON THE LOW SIDE BUT STABLE, MEDICATED WITH DILAUDID FOR PAIN, BLOOD SUGAR CHECKED WITH 89 RESULT, DUE ZOSYN IVPB ADMINISTERED, PT REFUSED TO BE REPOSITIONED, RISK AND BENEFITS EXPLAINED, PT EATING CHICKEN FINGERS WITH FRIES, TOLERATING WELL, CONTINUE TO MONITOR CLOSELY.
[2019-02-25] VITALS (7 sets, daily range): BP systolic 84–94; BP diastolic 30–52
[2019-02-25] MEDS: HYDROmorphone PFS 2 MG/ML SYR IVP PRN ×7 (03:27→22:21)
--- NOTE | 2019-02-25 04:30 | NUR ---
PT'S BLOOD PRESSURE IS LOW 87/38, ASYMPTOMATIC, NO SOB NOTED, PAGED DR WISEMAN TRACE CLERK, AWAITING CALL BACK.
--- NOTE | 2019-02-25 04:50 | NUR ---
RE-PAGED DR WISEMAN, MADE AWARE OF PT'S LOW BLOOD PRESSURE, REQUEST FOR A BOLUS ORDER, STATED "NO", NO ORDER RECEIVED FROM DR WISEMAN, CHARGE NURSE LÓPEZ IS AWARE, PT MONITORED CLOSELY.
[2019-02-25] MEDS: BLOOD GLUCOSE MONITORING 1 DEV DEV FS SCH ×4 (06:23→17:23)
[2019-02-25] MEDS: PIPERACILLIN/TAZOBACTAM 3.375 GM in DEXTROSE 5% 50 ML IV SCH ×4 (06:23→23:58)
--- NOTE | 2019-02-25 06:31 | NUR ---
BLOOD SUGAR CHECKED WITH 65 RESULT, ASYMPTOMATIC, PROVIDED WITH APPLE JUICE X2, TOLERATED WELL, DUE ZOSYN IVPB ADMINISTERED, MEDICATED PRN FOR PAIN, STATED HE WILL EMPTY HIS COLOSTOMY LATER, MONITORED CLOSELY.
--- NOTE | 2019-02-25 07:05 | NUR ---
PT SLEEPING, NO DISTRESS NOTED, REPORT GIVEN TO RN CIRA FOR CONTINUITY OF CARE.
--- NOTE | 2019-02-25 07:06 | NUR ---
RECEIVED REPORT FROM BAG ADJUSTER NURSE AT BEDSIDE FOR CONTINUITY OF CARE. PATIENT RESTING WITH EYES CLOSED. PATIENT LAST MEDICATED FOR PAIN AT 0631. RESPIRATIONS EVEN AND UNLABORED ON ROOM AIR. UPDATED BOARD. SAFETY AND ISOLATION PRECAUTIONS IN PLACE, CALL LIGHT WITHIN REACH, WILL CONTINUE TO MONITOR PATIENT.
--- NOTE | 2019-02-25 09:51 | NUR ---
PT C/O CHRONIC SEVERE PAIN 11/18. PT MEDICATED WITH PRN PAIN MEDICATION. PT TOLERATED IT WELL. PT HAS NO C/O AT THIS TIME. SAFETY AND ISOLATION PRECAUTIONS IN PLACE, CALL LIGHT WITHIN REACH, WILL CONTINUE TO MONITOR PT.
[2019-02-25 10:29] LABS: ANION GAP 10.7 (8-16); CARBON DIOXIDE 28.2 mmol/L (21-32); CREATININE 0.9 mg/dL (0.7-1.3); POTASSIUM 3.9 mmol/L (3.5-5.1)
[2019-02-25 10:30] LABS: MAGNESIUM 1.9 mg/dL (1.8-2.4)
--- NOTE | 2019-02-25 11:20 | NUR ---
PAGED AND SPOKE TO DR GAO ABOUT PATIENT'S DECREASED BLOOD PRESSURE. ORDER IN FOR ONE TIME BOLUS OF 500 ML OF NS, ZOSYN IVPB ALSO RENEWED. RN VERBALIZED UNDERSTANDING. ORDERS WILL BE NOTED AND CARRIED OUT.
[2019-02-25] MEDS: THERAHONEY GEL 42.5 GM TP SCH (13:00)
[2019-02-25] MEDS: NACL 0.9% 500 ML IV SCH ×2 (13:05→13:40)
--- NOTE | 2019-02-25 13:51 | NUR ---
02/25/19 RD FOLLOW UP COMPLETED PLEASE REFER TO NUTRITION ASSESSMENT UNDER CARE ACTIVITY FOR ESTIMATED NUTRITIONAL NEEDS. 1. CONTINUE REGULAR DIET W/ENSURE PLANT TID AND RODRIGUEZ BID -THIS WILL PROVIDE APPROXIMATELY 2400 KCAL AND 130 GM OF PROTEIN/DAY 2. CONTINUE TPN D10%, AA3% @ 70 ML/HR AND LIPIDS 10% 150 ML -CURRENT TPN IS [id number] KCAL AND 50.4 G PROTEIN, WHICH MEETS <50% OF ESTIMATED KCAL AND PROTEIN NEEDS 3. ENCOURAGE INCREASING PO INTAKE 4. ENCOURAGE FAMILY MEMBERS TO BRING FOOD/SUPPLEMENTS OF PATIENTS PREFERENCE 5. RD WILL FOLLOW UP 2-3 DAYS, HIGH RISK ALEXEI JOHNSTON RD
--- NOTE | 2019-02-25 14:52 | NUR ---
spoke to Dr. Qureshi to consult DR. Aleksandra Wong, plastic surgeon. Contacted [facility] insurance and spoke to Nikolai, director case management. Contacted wound clinic at [facility] and spoke with Zandra to arrange an appointment with Dr. Aleksandra Wong. [address] Wong and [facility] to be obtain with the same code [id number] and [id number]. Called Nikolai back and made aware, and was given Zandra, the esthetician/skin therapist to speak to her. [phone] [facility]. Nikolai will call back. Zandra will make the appointment next week with Dr. Wong when Auth available. Nikolai in [facility] is aware and is consulting with his manager school.
--- NOTE | 2019-02-25 19:30 | NUR ---
RECEIVED BEDSIDE REPORT FROM DAY SHIFT NURSE. PATIENT IS AWAKE, ALERT, AND COOPERATIVE. RESPIRATION EVEN UNLABORED ON ROOM AIR. NO DISTRESS NOTED. SKIN IS WARM AND DRY. RIGHT UPPER ARM PICC LINE NOTED PATENT AND INTACT. COLOSTOMY BAG IN PLACE AND INTACT.PLAN OF CARE WAS DISCUSSED. ALL SAFETY MEASURES IN PLACE. BED IS AT LOW POSITION. CALL LIGHT WITHIN REACH AND VERBALIZE ITS USE. WILL CONTINUE TO MONITOR.
--- NOTE | 2019-02-25 19:30 | NUR ---
REPORT GIVEN TO FACTORY PROCESS WORKERS NURSE AT BEDSIDE FOR CONTINUITY OF CARE. PATIENT IN STABLE CONDITION.
--- NOTE | 2019-02-25 20:00 | NUR ---
INITIAL ASSESSMENT DONE. TPN ADMINISTERED. OFFERED PATIENT TO BE REPOSITIONED. PATIENT REFUSED. VITALS WERE TAKEN. WILL CONTINUE TO MONITOR.
[2019-02-25] MEDS: MULTIVITAMIN IV SCH ×4 (20:10)
[2019-02-25] MEDS: AMINO ACIDS 8.5% IV SCH ×4 (20:10)
[2019-02-25] MEDS: [UNRECOGNIZED DRUG - OTHER] IV SCH ×4 (20:10)
[2019-02-25] MEDS: DEXTROSE IV SCH ×4 (20:10)
--- NOTE | 2019-02-25 22:20 | NUR ---
PATIENT COMPLAINED OF PAIN 10/19. PRN PAIN MED ADMINISTERED PER ORDER. WILL CONTINUE TO MONITOR.
[2019-02-26] VITALS: BP 95/50
[2019-02-26] MEDS: BLOOD GLUCOSE MONITORING 1 DEV DEV FS SCH ×5 (00:04→23:09)
--- NOTE | 2019-02-26 00:10 | NUR ---
VITALS WERE TAKEN. PATIENT IN STABLE CONDITION. NO DISTRESS NOTED. WILL CONTINUE TO MONITOR.
[2019-02-26] MEDS: HYDROmorphone PFS 2 MG/ML SYR IVP PRN ×8 (01:32→23:02)
--- NOTE | 2019-02-26 01:32 | NUR ---
PATIENT COMPLAINED OF PAIN 09/18. PRN PAIN MED ADMINISTERED PER ORDER. WILL CONTINUE TO MONITOR.
[2019-02-26 04:00] VITALS: BP 92/55
--- NOTE | 2019-02-26 04:12 | NUR ---
VITALS WERE TAKEN. PATIENT IN STABLE CONDITION. WILL CONTINUE TO MONITOR
[2019-02-26] MEDS: PIPERACILLIN/TAZOBACTAM 3.375 GM in DEXTROSE 5% 50 ML IV SCH ×4 (05:48→23:04)
--- NOTE | 2019-02-26 07:09 | NUR ---
ENDORSED PATIENT TO DAY SHIFT NURSE. PATIENT IN STABLE CONDITION.
--- NOTE | 2019-02-26 07:10 | NUR ---
RECEIVED REPORT FROM HAY STACKER OPERATOR NURSE AT BEDSIDE FOR CONTINUITY OF CARE. PATIENT RESTING WITH EYES CLOSED. PATIENT LAST MEDICATED FOR PAIN AT 0432. RESPIRATIONS EVEN AND UNLABORED ON ROOM AIR. RIGHT UA DOUBLE LUMEN PICC LINE INTACT, ASYMPTOMATIC, DRESSING CLEAN AND INTACT, INFUSING TPN WELL. UPDATED BOARD. SAFETY AND ISOLATION PRECAUTIONS IN PLACE, CALL LIGHT WITHIN REACH, WILL CONTINUE TO MONITOR PATIENT.
[2019-02-26 07:30] VITALS: BP 94/48
--- NOTE | 2019-02-26 07:32 | NUR ---
PATIENT COMPLAINED OF PAIN 10/10, MOANING, FACIAL GRIMACING, CRYING. PRN PAIN MED ADMINISTERED PER ORDER. SAFETY AND ISOLATION PRECAUTIONS IN PLACE, CALL LIGHT WITHIN REACH, WILL CONTINUE TO MONITOR.
[2019-02-26 10:42] LABS: BASOPHILS # (AUTO) 0.1 K/uL (0.00-0.22); BASOPHILS % (AUTO) 0.9 % (0.0-2.0); EOSINOPHILS # (AUTO) 1.1 K/uL (0-0.4); EOSINOPHILS % (AUTO) 17.5 % (0.0-4.0); HEMATOCRIT 25.2 % (36-52); HEMOGLOBIN 8.2 g/dL (12.0-18.0); LYMPHOCYTES # (AUTO) 1.4 K/uL (2.0-11.5); LYMPHOCYTES % (AUTO) 22.8 % (20.5-51.1); MEAN CORPUSCULAR HEMOGLOBIN 29 pg (27-31); MEAN CORPUSCULAR HGB CONC 32 g/dL (33-37); MEAN CORPUSCULAR VOLUME 89.3 fL (80-94); MONOCYTES # (AUTO) 0.8 K/uL (0.8-1.0); NEUTROPHILS # (AUTO) 2.9 K/uL (1.8-7.7); NEUTROPHILS % (AUTO) 46.8 % (42.2-75.2); PLATELET COUNT (AUTO) 492 K/uL (140-450); RED BLOOD CELL COUNT(AUTO) 2.82 MIL/uL (4.20-6.10); RED CELL DISTRIBUTION WIDTH 16.6 % (11.6-13.7); WHITE BLOOD COUNT (AUTO) 6.2 K/uL (4.8-10.8)
--- NOTE | 2019-02-26 10:53 | NUR ---
PATIENT MEDICATED WITH PRN PAIN MED FOR C/O 9/10 PAIN. PATIENT HAS NO COMPLAINTS AT THIS TIME. SAFETY AND ISOLATION PRECAUTIONS IN PLACE, CALL LIGHT WITHIN REACH, WILL CONTINUE TO MONITOR.
[2019-02-26 10:55] LABS: ALBUMIN 1.3 g/dL (3.4-5.0); ANION GAP 10.5 (8-16); CARBON DIOXIDE 27.6 mmol/L (21-32); CREATININE 0.9 mg/dL (0.7-1.3); POTASSIUM 4.1 mmol/L (3.5-5.1); TOTAL BILIRUBIN 0.1 mg/dL (0.0-1.0)
--- NOTE | 2019-02-26 12:32 | NUR ---
ORDERED ANTIBIOTICS GIVEN. PATIENT TOLERATING IT. NO COMPLAINTS AT THIS TIME. WILL CONTINUE TO MONITOR PATIENT.
[2019-02-26] MEDS: THERAHONEY GEL 42.5 GM TP SCH (12:36)
[2019-02-26 13:45] VITALS: BP 95/50
--- NOTE | 2019-02-26 13:56 | NUR ---
PATIENT MEDICATED WITH PRN PAIN MED FOR C/O 9/10 PAIN. PATIENT HAS NO COMPLAINTS AT THIS TIME. SAFETY AND ISOLATION PRECAUTIONS IN PLACE, CALL LIGHT WITHIN REACH, WILL CONTINUE TO MONITOR PATIENT.
--- NOTE | 2019-02-26 14:43 | NUR ---
Called Dr. Adam for renewal of pain medication. New order noted and will be carried out.
[2019-02-26 16:45] VITALS: BP 91/52
--- NOTE | 2019-02-26 17:00 | NUR ---
PATIENT MEDICATED WITH PRN PAIN MED FOR C/O 8/10 PAIN. BLOOD SUGAR 85, NO COVERAGE NEEDED. IVPB ZOSYN GIVEN. PATIENT HAS NO COMPLAINTS AT THIS TIME. MOTHER AT BEDSIDE. SAFETY AND ISOLATION PRECAUTIONS IN PLACE, CALL LIGHT WITHIN REACH, WILL CONTINUE TO MONITOR PATIENT.
--- NOTE | 2019-02-26 19:00 | NUR ---
REPORT GIVEN TO GYRO COMPASS TESTER NURSE AT BEDSIDE FOR CONTINUITY OF CARE. PATIENT IN STABLE CONDITION.
[2019-02-26 20:00] VITALS: BP 99/51
--- NOTE | 2019-02-26 20:00 | NUR ---
INITIAL ASSESSMENT DONE. VITALS WERE TAKEN. PATIENT COMPLAINED OF PAIN 9/10. PRN PAIN MED ADMINISTERED PER ORDER. WILL CONTINUE TO MONITOR.
[2019-02-26] MEDS: [UNRECOGNIZED DRUG - OTHER] IV SCH ×4 (20:43)
[2019-02-26] MEDS: DEXTROSE IV SCH ×4 (20:43)
[2019-02-26] MEDS: MULTIVITAMIN IV SCH ×4 (20:43)
[2019-02-26] MEDS: AMINO ACIDS 8.5% IV SCH ×4 (20:43)
--- NOTE | 2019-02-26 20:50 | NUR ---
FENTANYL PATCH REMOVED. APPLIED NEW ONE TO THE RIGHT AND LEFT MID CLAVICULAR.
[2019-02-26] MEDS: fentaNYL 0.075 MG/HR PATCH TD SCH (20:57)
--- NOTE | 2019-02-26 23:00 | NUR ---
PATIENT COMPLAINED OF PAIN 10/19. PRN PAIN MED ADMINISTERED PER ORDER. WILL CONTINUE TO MONITOR.
[2019-02-27] VITALS: BP 100/51
--- NOTE | 2019-02-27 00:05 | NUR ---
VITALS WERE TAKEN. PATIENT IN STABLE CONDITION. NO DISTRESS NOTED. WILL CONTINUE TO MONITOR.
--- NOTE | 2019-02-27 02:00 | NUR ---
MEDICATED PATIENT FOR PAIN. PICC LINE DRESSING CHANGED AND TOLERATED IT WELL. WILL CONTINUE TO MONITOR.
[2019-02-27] MEDS: HYDROmorphone PFS 2 MG/ML SYR IVP PRN ×7 (02:13→23:03)
[2019-02-27 04:00] VITALS: BP 93/52
--- NOTE | 2019-02-27 04:05 | NUR ---
VITALS WERE TAKEN. PATIENT IN STABLE CONDITION. NO DISTRESS NOTED. WILL CONTINUE TO MONITOR.
[2019-02-27] MEDS: PIPERACILLIN/TAZOBACTAM 3.375 GM in DEXTROSE 5% 50 ML IV SCH ×4 (05:00→23:02)
[2019-02-27] MEDS: BLOOD GLUCOSE MONITORING 1 DEV DEV FS SCH ×4 (05:00→23:17)
--- NOTE | 2019-02-27 05:13 | NUR ---
PATIENT COMPLAINED OF PAIN 10/19. PRN PAIN MED ADMINISTERED PER ORDER. WILL CONTINUE TO MONITOR.
--- NOTE | 2019-02-27 07:05 | NUR ---
ENDORSED PATIENT TO DAY SHIFT NURSE. PATIENT IN STABLE CONDITION.
--- NOTE | 2019-02-27 07:21 | NUR ---
SHIFT REPORT RECEIVED FROM PUBLIC SERVICE OFFICER NURSE .PT IS IN BED. AWAKE AND ALERT AND RESPONDING. NO COMPLAINS OF PAIN AT THIS TIME. CALL LIGHT IN REACH.
[2019-02-27 08:00] VITALS: BP 104/53
--- NOTE | 2019-02-27 10:23 | NUR ---
PT IS RESTING IN BED. PT'S PAIN TOLERABLE. PT JUST HAD A CAN OF ENSURE. PT REFUSED TO EAT BREAKFAST. NO SIGNS OF DISTRESS NOTED. VITAL SIGNS ARE IN NORMAL RANGE. CALL LIGHT IN REACH.
[2019-02-27 12:00] VITALS: BP 95/50
--- NOTE | 2019-02-27 12:30 | NUR ---
PT IS IN BED.PT SAYS HE DOES NOT FEEL LIKE HAVING LUNCH. NO DISTRESS NOTED. PAIN TOLERABLE. CALL LIGHT IN REACH.
[2019-02-27] MEDS: THERAHONEY GEL 42.5 GM TP SCH (13:00)
--- NOTE | 2019-02-27 15:00 | NUR ---
PT IS IN BED. FAMILY BY BEDSIDE. NO DISTRESS NOTED. PAIN TOLERABLE. CALL LIGHT IN REACH.
[2019-02-27 16:00] VITALS: BP 97/49
--- NOTE | 2019-02-27 18:00 | NUR ---
PT IS IN BED. FAMILY BY BEDSIDE. NO DISTRESS NOTED. PAIN TOLERABLE. CALL LIGHT IN REACH.
--- NOTE | 2019-02-27 19:22 | NUR ---
RECEIVED BEDSIDE REPORT FROM AM SHIFT NURSE. MOTHER IS AT BEDSIDE. NO SOB OR DISTRESS NOTED. ON ROOM AIR. IV ACCESS ON RIGHT UPPER ARM MIDLINE, PATENT, INTACT AND INFUSING WELL. PATIENT IS NOTED WITH MULTIPLE CHRONIC BURN WOUNDS AND PRESSURE SORES. COLOSTOMY IN PLACE. PATIENT IS ON CONTACT PRECAUTION. BED IS IN LOW, SAFETY MEASURES IN PLACE. INITIAL ASSESSMENT DONE. BOARD UPDATED. CALL LIGHT PLACED WITHIN PATIENT REACH. WILL CONTINUE TO MONITOR PATIENT.
--- NOTE | 2019-02-27 19:27 | NUR ---
SHIFT REPORT GIVEN TO SALES OPERATIONS ANALYST NURSE. PT IS IN STABLE CONDITION. FAMILY BY BEDSIDE. CALL LIGHT IN REACH.
--- NOTE | 2019-02-27 19:54 | NUR ---
PRN DILAUDID GIVEN AT THIS TIME PER PATIENT REQUEST FOR SEVERE PAIN. WILL CONTINUE TO MONITOR PATIENT.
[2019-02-27] MEDS: AMINO ACIDS 8.5% IV SCH ×4 (20:06)
[2019-02-27] MEDS: DEXTROSE IV SCH ×4 (20:06)
[2019-02-27] MEDS: [UNRECOGNIZED DRUG - OTHER] IV SCH ×4 (20:06)
[2019-02-27] MEDS: MULTIVITAMIN IV SCH ×4 (20:06)
[2019-02-27 20:10] VITALS: BP 94/56
--- NOTE | 2019-02-27 22:00 | NUR ---
TELE MONITOR BOX CHANGED AT THIS TIME. VISIBLE CHEST RISE AND FALL NOTED. CALL LIGHT WITHIN PATIENT REACH. WILL CONTINUE TO MONITOR PATIENT.
--- NOTE | 2019-02-27 23:15 | NUR ---
PRN DILAUDID GIVEN AT THIS TIME PER PATIENT REQUEST FOR SEVERE PAIN. WILL CONTINUE TO MONITOR PATIENT.
--- NOTE | 2019-02-28 00:05 | NUR ---
VITALS TAKEN AT THIS TIME. NO DISTRESS NOTED. WILL CONTINUE TO MONITOR PATIENT.
[2019-02-28 00:13] VITALS: BP 93/37
--- NOTE | 2019-02-28 01:01 | NUR ---
PATIENT REFUSED WOUND ASSESSMENT AND REPOSITIONING AT THIS TIME.
[2019-02-28] MEDS: HYDROmorphone PFS 2 MG/ML SYR IVP PRN ×7 (03:00→23:12)
--- NOTE | 2019-02-28 03:00 | NUR ---
PRN DILAUDID GIVEN AT TIME PER PATIENT REQUEST FOR SEVERE PAIN. WILL CONTINUE TO MONITOR PATIENT.
--- NOTE | 2019-02-28 04:15 | NUR ---
VITALS TAKEN AT THIS TIME. NO SOB OR DISTRESS NOTED. CALL LIGHT WITHIN PATIENT REACH. WILL CONTINUE TO MONITOR PATIENT.
[2019-02-28 04:38] VITALS: BP 96/36
[2019-02-28] MEDS: PIPERACILLIN/TAZOBACTAM 3.375 GM in DEXTROSE 5% 50 ML IV SCH ×3 (06:14→17:30)
--- NOTE | 2019-02-28 06:15 | NUR ---
BLOOD GLUCOSE RESULT OF 81. NO INSULIN COVERAGE NEEDED. WILL CONTINUE TO MONITOR PATIENT.
[2019-02-28] MEDS: BLOOD GLUCOSE MONITORING 1 DEV DEV FS SCH ×4 (06:19→23:31)
--- NOTE | 2019-02-28 06:35 | NUR ---
PATIENT IN STABLE CONDITION. CALL LIGHT WITHIN PATIENT REACH. WILL ENDORSE TO AM SHIFT NURSE FOR CONTINUITY OF CARE.
--- NOTE | 2019-02-28 07:10 | NUR ---
RECEIVED REPORT FROM NIGHT NURSE. PATIENT IS FULL CODE WITH MANY ALLERGIES. PATIENT IS ON ROOM AIR WITH RIGHT UPPER ARM MIDLINE. PATIENT IS BEDBOUND WITH GONZALES TO BILATERAL LOWER EXTREMITIES. TPN INFUSING VIA MIDLINE. WILL REVIEW AND CONTINUE WITH PLAN OF CARE FOR THE DAY.
[2019-02-28 08:00] VITALS: BP 87/37
[2019-02-28 09:20] LABS: BASOPHILS # (AUTO) 0.1 K/uL (0.00-0.22); BASOPHILS % (AUTO) 0.6 % (0.0-2.0); EOSINOPHILS # (AUTO) 1.2 K/uL (0-0.4); HEMOGLOBIN 8.6 g/dL (12.0-18.0); LYMPHOCYTES # (AUTO) 1.8 K/uL (2.0-11.5); LYMPHOCYTES % (AUTO) 20.4 % (20.5-51.1); MEAN CORPUSCULAR HEMOGLOBIN 29 pg (27-31); MEAN CORPUSCULAR HGB CONC 32 g/dL (33-37); MEAN CORPUSCULAR VOLUME 90.4 fL (80-94); MONOCYTES # (AUTO) 0.8 K/uL (0.8-1.0); MONOCYTES % (AUTO) 8.5 % (1.7-9.3); NEUTROPHILS # (AUTO) 5.2 K/uL (1.8-7.7); NEUTROPHILS % (AUTO) 57.5 % (42.2-75.2); PLATELET COUNT (AUTO) 543 K/uL (140-450); RED BLOOD CELL COUNT(AUTO) 2.99 MIL/uL (4.20-6.10); RED CELL DISTRIBUTION WIDTH 16.8 % (11.6-13.7)
[2019-02-28 09:45] LABS: ANION GAP 12.3 (8-16); CARBON DIOXIDE 29.1 mmol/L (21-32); POTASSIUM 4.4 mmol/L (3.5-5.1); TOTAL BILIRUBIN 0.1 mg/dL (0.0-1.0)
[2019-02-28 09:46] LABS: ALBUMIN 1.4 g/dL (3.4-5.0)
--- NOTE | 2019-02-28 10:33 | NUR ---
Update on Mr. Dumas's status in regard to transfer. On the weekend, there was no bed at [facility], spoke to [facility] transfer center in person and condition discussed but no bed available. Aware of transfer, but trying to confirm if Dr. Cruz will be consulted as inpatient rather in patient. Today, Spoke with Nikolai, disease case manager rn at [facility], in regard to the Auth for transfer to outpatient clinic at [facility] to see Dr. Yessy Wong. next appointment , 03/10/19 at 8:00 am given by Zandra at the outpatient clinic at [facility] for wound consult with Dr. Cruz at the outpatient clinic. Nikolai, disease case manager rn is aware and will follow up with his fuel manager tomorrow due to [email or web address] today to obtain Authorization. Today, spoke with Dr. Murray regarding the patient at length and Dr. Ana Maria Adam called and spoke to Monica GONGORAO at [facility]. Dr. Adam discussed Mr. Anne condition and recommended Mr. Anne to transfer [facility] for their outstanding wound clinic and for their on staff plastic surgeon for any recommendation. Dr. Adam will follow up with Monica and get back with us.
--- NOTE | 2019-02-28 11:02 | NUR ---
ADMINISTERED DILAUDID FOR PAIN 10/19. WILL RE-ASSESS PAIN LEVEL
[2019-02-28 12:00] VITALS: BP 98/44
--- NOTE | 2019-02-28 12:37 | NUR ---
BLOOD SUGAR OF 87, NO INSULIN NEEDED. BEGAN IVPB ZOSYN INFUSION
[2019-02-28] MEDS: THERAHONEY GEL 42.5 GM TP SCH (13:31)
--- NOTE | 2019-02-28 14:26 | NUR ---
ADMINISTERED DILAUDID FOR PAIN 10/19. WILL RE-ASSESS PAIN LEVEL
--- NOTE | 2019-02-28 15:13 | NUR ---
Spoke to Dr. Leon Wong regarding the patient wound on the leg. Dr. Wong went to the room to view the wound on the leg, patient was in pain, tried to lift the sheet but not able to fully see the wound. Called Dr. Leon Adam for update and the doctor informed of COORDINATOR INTEGRATED MARKETING at [facility] called him and will to accept the patient at [facility] however, the COORDINATOR INTEGRATED MARKETING requested a meeting with all disciplines and patient's mother and the patient for tomorrow at 2 pm. Liaison at [facility] will arrange the meeting at 2 pm on 03/01/19. I spoke to mother Saray and she was in her son's room. deputy director of nursing and myself met with patient and mother in the room about the meeting and transfer to [facility], Patient was emotionally disturb, tearful and fear of transfer to [facility] from previous bad experience about service and care. Finally we got to the agreement to go ahead and attend the meeting to discuss further care.
--- NOTE | 2019-02-28 15:15 | NUR ---
PATIENT IS RESTING IN BED, MOTHER IS AT BEDSIDE. CASE MANAGEMENT IS IN THE ROOM DISCUSSING PLAN OF CARE FOR POSSIBLE TRANSFER TO [facility].
[2019-02-28 16:00] VITALS: BP 103/59
--- NOTE | 2019-02-28 16:33 | NUR ---
02/28/19 RD FOLLOW UP COMPLETED PLEASE REFER TO NUTRITION ASSESSMENT UNDER CARE ACTIVITY FOR ESTIMATED NUTRITIONAL NEEDS. 1. CONTINUE REGULAR DIET W/ENSURE PLANT TID AND RODRIGUEZ BID -THIS WILL PROVIDE APPROXIMATELY 2400 KCAL AND 130 GM OF PROTEIN/DAY 2. CONTINUE TPN D15%, AA3% @ 70 ML/HR AND LIPIDS 10% 100 ML -CURRENT TPN IS PROVIDING APPROX. 1157 KCAL AND 50.4 G PROTEIN, WHICH MEETS <50% OF ESTIMATED KCAL AND PROTEIN NEEDS 3. ENCOURAGE INCREASING PO INTAKE 4. ENCOURAGE FAMILY MEMBERS TO BRING FOOD/SUPPLEMENTS OF PATIENTS PREFERENCE 5. RD WILL FOLLOW UP 2-3 DAYS, HIGH RISK ALEXEI JOHNSTON RD
--- NOTE | 2019-02-28 17:30 | NUR ---
ADMINISTERED DILAUDID FOR PAIN. ADMINISTERED NEXT DOSE ZOSYN IVPB. PATIENTS BLOOD SUGAR IS 84, NO INSULIN NEEDED.
--- NOTE | 2019-02-28 19:15 | NUR ---
RECEIVED PT ON BED, AAOX4, VITAL SIGNS TAKEN, BP ON THE LOW SIDE BUT STABLE, WITH TOLERABLE PAIN, MADE AWARE OF NEXT DUE TIME, DRESSING TO SHAMEKA LEGS DRY AND INTACT, TPN INFUSING AT 70ML/H VIA RT UA MIDLINE, COLOSTOMY IN PLACE WITH SMALL STOOL, ON CONTACT ISOLATION, PLAN OF CARE DISCUSSED WITH MOTHER AT BEDSIDE, SAFETY MEASURES IN PLACE, CALL LIGHT WITHIN REACH.
[2019-02-28 20:00] VITALS: BP 94/47
--- NOTE | 2019-02-28 20:20 | NUR ---
PT MEDICATED PRN FOR PAIN WITH DILAUDID IVP, NEW TPN BAG HANGED, PT REFUSED TO BE REPOSITIONED, RISK AND BENEFITS PROVIDED BUT STILL REFUSING, ALL NEEDS ATTENDED.
[2019-02-28] MEDS: DEXTROSE IV SCH ×4 (20:25)
[2019-02-28] MEDS: [UNRECOGNIZED DRUG - OTHER] IV SCH ×4 (20:25)
[2019-02-28] MEDS: MULTIVITAMIN IV SCH ×4 (20:25)
[2019-02-28] MEDS: AMINO ACIDS 8.5% IV SCH ×4 (20:25)
--- NOTE | 2019-02-28 20:50 | NUR ---
PT REPOSITIONED TO KEEP HOB ELEVATED, 10 ML RESIDUAL NOTED, DUE MEDS ADMINISTERED VIA G-TUBE AFTER VERIFICATION, ALL NEEDS ANTICIPATED. Addendum: 03/01/19 at 0247 by Segundo Rodríguez RN CHARTED ON WRONG PT
[2019-02-28] MEDS ORDERED: ONDANSETRON 4 MG/2 ML VIAL IVP PRN (23:30)
--- NOTE | 2019-02-28 23:30 | NUR ---
PT COMPLAINING OF PAIN, VITAL SIGNS TAKEN, BP ON THE LOW SIDE BUT STABLE, MEDICATED WITH DILAUDID FOR PAIN, BLOOD SUGAR CHECKED WITH 88 RESULT, TPN INFUSING WELL, CONTINUE TO MONITOR CLOSELY.
[2019-03-01] VITALS: BP 91/50
[2019-03-01] MEDS: PIPERACILLIN/TAZOBACTAM 3.375 GM in DEXTROSE 5% 50 ML IV SCH ×4 (00:07→18:02)
[2019-03-01] MEDS: HYDROmorphone PFS 2 MG/ML SYR IVP PRN ×7 (02:20→21:00)
--- NOTE | 2019-03-01 02:20 | NUR ---
PT COMPLAINING OF PAIN AND N/V NOTED, MEDICATED WITH DILAUDID AND ZOFRAN IVP, MONITORED CLOSELY.
[2019-03-01 04:00] VITALS: BP 99/52
--- NOTE | 2019-03-01 05:15 | NUR ---
PT COMPLAINING OF PAIN, MEDICATED WITH DILAUDID IVP, BLOOD SUGAR CHECKED WITH 85 RESULT, DUE ZOSYN IVPB ADMINISTERED, MONITORED CLOSELY.
[2019-03-01] MEDS: BLOOD GLUCOSE MONITORING 1 DEV DEV FS SCH ×3 (05:16→18:04)
--- NOTE | 2019-03-01 07:10 | NUR ---
RECEIVED REPORT FROM EDUCATION DIAGNOSTICIAN NURSE. PATIENT IS SLEEPING, VISIBLE CHEST RISE AND FALL. PATIENT IS FULL CODE WITH MULTIPLE FOOD ALLERGIES, NKDA. PT HAS A RIGHT UA MIDLINE WITH TPN INFUSING AT 70ML/HR. ON ROOM AIR. PATIENT IS BEDBOUND. WILL REVIEW AND CONTINUE WITH PLAN OF CARE FOR THE DAY.
--- NOTE | 2019-03-01 07:16 | NUR ---
PT SLEEPING, NO SIGNS OF DISTRESS, REPORT GIVEN TO GÉNESIS BISHOP FOR CONTINUITY OF CARE.
[2019-03-01 08:00] VITALS: BP 95/49
--- NOTE | 2019-03-01 08:50 | NUR ---
ADMINISTERED PAIN MEDICATION. WILL RE-ASSESS PAIN LEVEL
--- NOTE | 2019-03-01 11:40 | NUR ---
ADMINISTERED DILAUDID FOR PAIN 10/19. WILL RE-ASSESS PAIN LEVEL
[2019-03-01 12:00] VITALS: BP 97/46
--- NOTE | 2019-03-01 12:30 | NUR ---
BLOOD SUGAR OF 106, NO INSULIN NEEDED. IVPB ZOSYN INFUSING
[2019-03-01] MEDS: THERAHONEY GEL 42.5 GM TP SCH (13:36)
--- NOTE | 2019-03-01 14:47 | NUR ---
ADMINISTERED DILAUDID FOR PAIN 10/19. WILL RE ASSESS PAIN LEVEL
[2019-03-01 16:00] VITALS: BP 95/49
--- NOTE | 2019-03-01 18:05 | NUR ---
ADMINISTERED DILAUDID FOR PAIN. WILL RE-ASSESS. BLOOD SUGAR OF 74, NO INSULIN NEEDED. OBTAINED CONSENT FOR DEBRIDEMENT ON 03/02/[address] SHEA.
--- NOTE | 2019-03-01 18:39 | NUR ---
PATIENT RESTING IN BED, NO COMPLAINTS AT THIS TIME. FAMILY AT BEDSIDE. ALL NEEDS HAVE BEEN MET, WILL ENDORSE TO PRESCHOOL ASSISTANT FOR CONTINUITY OF CARE
--- NOTE | 2019-03-01 19:15 | NUR ---
RECEIVED PT ON BED, AAOX4, VITAL SIGNS TAKEN, BP ON THE LOW SIDE BUT STABLE, WITH TOLERABLE PAIN, MADE AWARE OF NEXT DUE TIME, TPN INFUSING AT 70ML/H VIA RT UA MIDLINE, COLOSTOMY INTACT, ON CONTACT ISOLATION, PLAN OF CARE DISCUSSED WITH MOTHER AT BEDSIDE, FOR DRESSING CHANGE TOMORROW IN OR, CONSENT SIGNED, INSTRUCTED NPO AFTER MIDNIGHT, SAFETY MEASURES IN PLACE, CALL LIGHT WITHIN REACH.
[2019-03-01 20:00] VITALS: BP 100/55
[2019-03-01] MEDS: MULTIVITAMIN IV SCH ×4 (20:04)
[2019-03-01] MEDS: AMINO ACIDS IV SCH ×4 (20:04)
[2019-03-01] MEDS: [UNRECOGNIZED DRUG - OTHER] IV SCH ×4 (20:04)
[2019-03-01] MEDS: DEXTROSE IV SCH ×4 (20:04)
[2019-03-01] MEDS: fentaNYL 0.075 MG/HR PATCH TD SCH (21:07)
--- NOTE | 2019-03-01 21:07 | NUR ---
PT COMPLAINING OF PAIN, MEDICATED PRN WITH DILAUDID IVP, NEW FENTANYL PATCH APPLIED TO SHAMEKA SHOULDERS, ALL NEEDS ATTENDED.
[2019-03-02] VITALS: BP 92/47
[2019-03-02] MEDS: HYDROmorphone PFS 2 MG/ML SYR IVP PRN ×7 (00:01→21:02)
[2019-03-02] MEDS: PIPERACILLIN/TAZOBACTAM 3.375 GM in DEXTROSE 5% 50 ML IV SCH ×4 (00:01→18:22)
--- NOTE | 2019-03-02 00:01 | NUR ---
PT COMPLAINING OF PAIN, MEDICATED PRN WITH DILAUDID IVP, VITAL SIGNS TAKEN, BP ON THE LOW SIDE BUT STABLE, BLOOD SUGAR CHECKED WITH 88 RESULT, INSTRUCTED NPO BEGINNING AT THIS TIME, VERBALIZED UNDERSTANDING, TPN INFUSING WELL AT 70ML/H, ZOSYN IVPB ADMINISTERED, CONTINUE TO MONITOR CLOSELY.
[2019-03-02] MEDS: BLOOD GLUCOSE MONITORING 1 DEV DEV FS SCH ×4 (00:08→18:26)
--- NOTE | 2019-03-02 01:20 | NUR ---
PT REFUSED TO BE REPOSITIONED, RISK AND BENEFITS EXPLAINED.
[2019-03-02 04:30] VITALS: BP 90/51
--- NOTE | 2019-03-02 04:31 | NUR ---
PT COMPLAINING OF PAIN, VITAL SIGNS TAKEN, BP ON THE LOW SIDE BUT STABLE, MEDICATED PRN WITH DILAUDID IVP, MAINTAINED ON NPO, TPN INFUSING WELL, MONITORED CLOSELY.
--- NOTE | 2019-03-02 06:10 | NUR ---
BLOOD SUGAR CHECKED WITH 93 RESULT, MAINTAINED ON NPO, TPN INFUSING, DUE ZOSYN IVPB ADMINISTERED, MONITORED CLOSELY.
--- NOTE | 2019-03-02 07:15 | NUR ---
PT AWAKE, NO SIGNS OF DISTRESS, REPORT GIVEN TO GÉNESIS SIMON FOR CONTINUITY OF CARE.
--- NOTE | 2019-03-02 07:20 | NUR ---
RECEIVED REPORT FROM NIGHT NURSE. PATIENT IS AWAKE, ALERT AND ORIENTED X4. NO S/S OF DISTRESS NOTED. PICC LINE INTACT AND PATENT TO RIGHT UPPER ARM. BED IN LOW POSITION. CALL LIGHT WITHIN REACH. PLANS OF CARE DISCUSSED.
[2019-03-02 08:00] VITALS: BP 90/54
[2019-03-02 08:45] LABS: BASOPHILS # (AUTO) 0.1 K/uL (0.00-0.22); BASOPHILS % (AUTO) 0.9 % (0.0-2.0); EOSINOPHILS # (AUTO) 1.1 K/uL (0-0.4); EOSINOPHILS % (AUTO) 13.2 % (0.0-4.0); HEMATOCRIT 24.7 % (36-52); HEMOGLOBIN 7.8 g/dL (12.0-18.0); LYMPHOCYTES # (AUTO) 1.9 K/uL (2.0-11.5); LYMPHOCYTES % (AUTO) 23.4 % (20.5-51.1); MEAN CORPUSCULAR HEMOGLOBIN 28 pg (27-31); MEAN CORPUSCULAR HGB CONC 32 g/dL (33-37); MEAN CORPUSCULAR VOLUME 89.3 fL (80-94); MONOCYTES # (AUTO) 0.7 K/uL (0.8-1.0); MONOCYTES % (AUTO) 8.7 % (1.7-9.3); NEUTROPHILS # (AUTO) 4.3 K/uL (1.8-7.7); NEUTROPHILS % (AUTO) 53.8 % (42.2-75.2); PLATELET COUNT (AUTO) 499 K/uL (140-450); RED BLOOD CELL COUNT(AUTO) 2.77 MIL/uL (4.20-6.10)
[2019-03-02 09:11] LABS: ANION GAP 9.5 (8-16); CARBON DIOXIDE 30.6 mmol/L (21-32); CREATININE 0.9 mg/dL (0.7-1.3); POTASSIUM 4.1 mmol/L (3.5-5.1)
[2019-03-02 09:16] LABS: ALBUMIN 1.5 g/dL (3.4-5.0); TOTAL BILIRUBIN 0.1 mg/dL (0.0-1.0)
--- NOTE | 2019-03-02 09:20 | NUR ---
PATIENT REMAINS STABLE, AAOX4. CURRENTLY WATCHING TV. CONTINUES TO BE NPO FOR DRESSING CHANGE IN THE OR TODAY. NO S/S OF DISTRESS NOTED. PICC LINE INTACT AND PATENT WITH TPN INFUSING @ 70ML/HR. TOLERATING WELL. CALL LIGHT WITHIN REACH.
[2019-03-02 12:04] VITALS: BP 96/43
--- NOTE | 2019-03-02 12:25 | NUR ---
PATIENT PICKED UP BY OSTEOLOGISTWORKERS COMPENSATION ADMINISTRATOR VIA AUDIE. PT GOING TO OR FOR DRESSING CHANGES. PATIENT IN STABLE CONDITION.
[2019-03-02] MEDS: THERAHONEY GEL 42.5 GM TP SCH (13:00)
[2019-03-02] MEDS ORDERED: fentaNYL 0.05 MG/ML VIAL ONE (13:06)
[2019-03-02] MEDS ORDERED: SEVOFLURANE 250 ML BTL INH ONE (13:15)
[2019-03-02] MEDS ORDERED: PROPOFOL 200 MG/20 ML VIAL IV ONE (13:15)
--- NOTE | 2019-03-02 14:39 | NUR ---
PT BACK FROM OR, GAVE PT DILAUDID FOR SEVERE PAIN OF 10/10, PAIN IN LEGS, CALL LIGHT WITHIN REACH.
--- NOTE | 2019-03-02 15:10 | NUR ---
PAGED DR. GARCIA FOR ORDERS FOR BREAKTHROUGH PAIN, PATIENT STILL COMPLAINING OF SEVERE PAIN.
--- NOTE | 2019-03-02 15:25 | NUR ---
RECEIVED CALL FROM DR. GARCIA. RECEIVED ORDER TO GIVE X1 DILAUDID 2MG IVP NOW FOR BREAKTHROUGH PAIN.
[2019-03-02] MEDS ORDERED: HYDROmorphone PFS 2 MG/ML SYR IVP SCH (15:50)
[2019-03-02 16:00] VITALS: BP 119/79
--- NOTE | 2019-03-02 16:10 | NUR ---
NOTIFIED DR. CAICEDO SURGEON IN REGARDS TO PATIENT'S BLEEDING TO RIGHT LOWER EXTREMITY. NOTED BRIGHT RED BLOOD OOZING OUT OF THE DRESSING. PER DR. CAICEDO REINFORCE WITH KERLIX GAUZE AT THIS TIME. IF IT CONTINUES TO BLEED NOTIFY DR. SHEA.
--- NOTE | 2019-03-02 17:05 | NUR ---
BLEEDING IS CONTROLLED TO THE RIGHT LOWER EXTREMITY. REINFORCED AND APPLIED WITH DRY DRESSING. PATIENT REFUSED TO WRAP THE RIGHT LEG. EDUCATED PATIENT ABOUT THE BENEFITS OF REWRAPPING THE WOUND TO RIGHT LEG.
--- NOTE | 2019-03-02 19:00 | NUR ---
REPORT GIVEN TO NIGHT NURSE. PATIENT IN STABLE CONDITION.
--- NOTE | 2019-03-02 19:09 | NUR ---
REPORT RECEIVED FROM AM NURSE AT BEDSIDE. PT IN STABLE CONDITION. AAOX4. INTRODUCED SELF TO PT. BOARD UPDATED. NO COMPLAINTS OF PAIN. ALREADY MEDICATE. NO SOB. AFEBRILE. PT HAS COLOSTOMY. PT IS BEDBOUND. IV SITE R UA PICC LINE DOUBLE LUMEN RUNNING TPN@70ML/HR PATENT AND INTACT. SKIN WARM, DRY, AND NOT INTACT DUE TO MULTIPLE WOUNDS. SEE WOUND NOTES. PT HAD DRESSING CHANGE TODAY WITH DR. CAICEDO. BED LOCKED IN LOW POSITION. CALL CONN WITHIN REACH. SAFETY PRECAUTION IN PLACE. ALL NEEDS MET AT THIS TIME.
[2019-03-02 20:00] VITALS: BP 113/60
[2019-03-02] MEDS: MULTIVITAMIN IV SCH ×4 (20:24)
[2019-03-02] MEDS: [UNRECOGNIZED DRUG - OTHER] IV SCH ×4 (20:24)
[2019-03-02] MEDS: AMINO ACIDS IV SCH ×4 (20:24)
[2019-03-02] MEDS: DEXTROSE IV SCH ×4 (20:24)
--- NOTE | 2019-03-02 20:24 | NUR ---
TPN HUNG AND RUNNING. PT TOLERATING WELL.
--- NOTE | 2019-03-02 21:01 | NUR ---
DILAUDID GIVEN FOR 9/10 GENERALIZED PAIN. PT TOLERATED WELL.
--- NOTE | 2019-03-02 23:00 | NUR ---
PT WATCHING TV IN BED. NO S/S OF DISTRESS NOTED. WILL CONTINUE TO MONITOR.
[2019-03-03] VITALS: BP 108/63
[2019-03-03] MEDS: PIPERACILLIN/TAZOBACTAM 3.375 GM in DEXTROSE 5% 50 ML IV SCH ×4 (00:05→18:31)
--- NOTE | 2019-03-03 00:05 | NUR ---
KIKI HUNG AND RUNNING. DILAUDID GIVEN FOR 10/10 GENERALIZED PAIN. BS 127. NO INSULIN COVERAGE NEEDED. PT TOLERATED WELL.
[2019-03-03] MEDS: HYDROmorphone PFS 2 MG/ML SYR IVP PRN ×7 (00:06→21:35)
[2019-03-03] MEDS: BLOOD GLUCOSE MONITORING 1 DEV DEV FS SCH ×4 (00:14→18:30)
--- NOTE | 2019-03-03 01:30 | NUR ---
PT SLEEPING COMFORTABLY BUT AROUSABLE. NO S/S OF DISTRESS NOTED. WILL CONTINUE TO MONITOR.
--- NOTE | 2019-03-03 03:00 | NUR ---
PT SLEEPING COMFORTABLY BUT AROUSABLE. NO S/S OF DISTRESS NOTED. RESPIRATIONS EVEN, UNLABORED, AND WNL. WILL CONTINUE TO MONITOR.
[2019-03-03 04:00] VITALS: BP 99/46
--- NOTE | 2019-03-03 04:23 | NUR ---
DILAUDID GIVEN FOR 10/10 BACK PAIN. PT TOLERATED WELL.
--- NOTE | 2019-03-03 05:15 | NUR ---
KIKI PARRISH AND RUNNING. PT TOLERATED WELL. BS 104. NO INSULIN COVERAGE NEEDED.
--- NOTE | 2019-03-03 06:48 | NUR ---
PT SLEEPING COMFORTABLY BUT AROUSABLE. PT IN STABLE CONDITION.
--- NOTE | 2019-03-03 06:53 | NUR ---
PT AWAKE AND ALERT IN BED WATCHING TV. PT IN STABLE CONDITION.
--- NOTE | 2019-03-03 07:15 | NUR ---
RECEIVED REPORT FROM SCORE CALLER NURSE MUNIRA FOR CONTINUITY OF CARE. PT IN STABLE CONDITION. RESPIRATIONS EVEN AND UNLABORED. IV ACCESS INTACT AND PATENT. SAFETY MEASURES IN PLACE. BED IN LOW POSITION. BED ALARM ON. CALL LIGHT AT BEDSIDE. WILL CONTINUE TO MONITOR.
[2019-03-03 08:00] VITALS: BP 105/57
--- NOTE | 2019-03-03 09:20 | NUR ---
PT SLEEPING AT THIS TIME. RESPIRATIONS EVEN AND UNLABORED. BED IN LOW POSITION. BED ALARM ON. CALL LIGHT AT BEDSIDE. WILL CONTINUE TO MONITOR.
--- NOTE | 2019-03-03 11:30 | NUR ---
GAVE PRN PAIN MEDICATION PER PT REQUEST. PT REFUSED TO ROTATE. RESPIRATIONS EVEN AND UNLABORED. BED IN LOW POSITION. BED ALARM ON. CALL LIGHT AT BEDSIDE. WILL CONTINUE TO MONITOR.
[2019-03-03 12:00] VITALS: BP 101/54
--- NOTE | 2019-03-03 12:25 | NUR ---
GAVE ORDERED DUE MEDICATIONS AT THIS TIME. PT TOLERATED WELL.
[2019-03-03] MEDS: THERAHONEY GEL 42.5 GM TP SCH (12:40)
--- NOTE | 2019-03-03 14:14 | NUR ---
PT REFUSED TO CHANGE BEDDING AT THIS TIME.
--- NOTE | 2019-03-03 14:23 | NUR ---
03/03/19 RD FOLLOW UP COMPLETED PLEASE REFER TO NUTRITION ASSESSMENT UNDER CARE ACTIVITY FOR ESTIMATED NUTRITIONAL NEEDS. 1. CONTINUE REGULAR DIET W/ENSURE PLANT TID AND RODRIGUEZ BID -THIS WILL PROVIDE APPROXIMATELY 2400 KCAL AND 130 GM OF PROTEIN/DAY 2. CONTINUE TPN D15%, AA3% @ 70 ML/HR AND LIPIDS 10% 100 ML -CURRENT TPN IS PROVIDING 1157 KCAL AND 50.4 G PROTEIN, WHICH MEETS <50% OF ESTIMATED KCAL AND PROTEIN NEEDS 3. ENCOURAGE INCREASING PO INTAKE 4. ENCOURAGE FAMILY MEMBERS TO BRING FOOD/SUPPLEMENTS OF PATIENTS PREFERENCE 5. RD WILL FOLLOW UP 2-3 DAYS, HIGH RISK ALEXEI JOHNSTON RD
--- NOTE | 2019-03-03 16:34 | NUR ---
PT TALKING WITH FAMILY AT BEDSIDE. RESPIRATIONS EVEN AND UNLABORED. BED IN LOW POSITION. BED ALARM ON. CALL LIGHT AT BEDSIDE. WILL CONTINUE TO MONITOR.
[2019-03-03 18:00] VITALS: BP 104/56
--- NOTE | 2019-03-03 18:17 | NUR ---
GAVE PRN PAIN MEDICATION AT THIS TIME. PER PT REQUEST. RESPIRATIONS EVEN AND UNLABORED. BED IN LOW POSITION. BED ALARM ON. CALL LIGHT AT BEDSIDE. WILL CONTINUE TO MONITOR.
--- NOTE | 2019-03-03 19:18 | NUR ---
GAVE REPORT TO EXPLORATION GEOLOGIST NURSE MEKHI FOR CONTINUITY OF CARE. PT IN STABLE CONDITION.
--- NOTE | 2019-03-03 19:30 | NUR ---
RECEIVED BEDSIDE REPORT FROM AM SHIFT RN FOR PT'S CONTINUITY OF CARE. PT IS AAOX4, HAS RIGHT UPPER ARM PICC LINE WITH TPN AT 70ML/HR, ON CONCRETE MIXER OPERATOR, ON RA. REORIENTED PT TO THE ACTIVITY THERAPY SPECIALIST ROUTINE, PT VERBALIZED FAMILIARITY WITH ROUTINE. SAFETY MEASURES IN PLACE, AND CALL LIGHT IS WITHIN REACH. PT'S NEEDS MET AT THIS TIME. WILL MONITOR PT THROUGHOUT SHIFT.
[2019-03-03 20:00] VITALS: BP 103/40
[2019-03-03] MEDS: AMINO ACIDS IV SCH ×4 (20:23)
[2019-03-03] MEDS: DEXTROSE IV SCH ×4 (20:23)
[2019-03-03] MEDS: MULTIVITAMIN IV SCH ×4 (20:23)
[2019-03-03] MEDS: [UNRECOGNIZED DRUG - OTHER] IV SCH ×4 (20:23)
--- NOTE | 2019-03-03 20:23 | NUR ---
HUNG NEW TPN AT 70ML/HR, IMAGE SCIENTIST COSIGNED. PT'S NEEDS MET AT THIS TIME.
--- NOTE | 2019-03-03 21:35 | NUR ---
PT C/O PAIN, ADMINISTERED PRN IVP PAIN MEDICATION ORDERED. VS WAS REQUESTED TO BE TAKEN DURING THIS TIME. PT'S NEEDS MET AT THIS TIME. WILL CONTINUE TO MONITOR PT.
[2019-03-04] VITALS: BP 96/51
[2019-03-04] MEDS: HYDROmorphone PFS 2 MG/ML SYR IVP PRN ×8 (00:36→21:49)
--- NOTE | 2019-03-04 00:36 | NUR ---
BLOOD GLUCOSE CHECKED AND CHARTED, NO INSULIN COVERAGE NEEDED. ADMINISTERED SCHEDULED IV ABX ORDERED. VS CHECKED AND CHARTED. PT C/O PAIN, ADMINISTERED PRN IVP PAIN MEDICATION ORDERED. PT'S NEEDS MET AT THIS TIME. WILL CONTINUE TO MONITOR PT.
[2019-03-04] MEDS: PIPERACILLIN/TAZOBACTAM 3.375 GM in DEXTROSE 5% 50 ML IV SCH ×4 (00:44→18:24)
[2019-03-04] MEDS: BLOOD GLUCOSE MONITORING 1 DEV DEV FS SCH ×4 (00:45→18:31)
--- NOTE | 2019-03-04 01:40 | NUR ---
PT ASLEEP WITH NO SIGNS OF DISTRESS. WILL CONTINUE TO MONITOR PT.
--- NOTE | 2019-03-04 03:37 | NUR ---
PT C/O PAIN. ADMINISTERED PRN IVP PAIN MEDICATION ORDERED.
[2019-03-04 04:00] VITALS: BP 93/50
--- NOTE | 2019-03-04 06:35 | NUR ---
PT C/O PAIN. ADMINISTERED PRN IVP PAIN MEDICATION ORDERED. ADMINISTERED SCHEDULED IV ABX. BLOOD GLUCOSE CHECKED AND CHARTED, NO COVERAGE NEEDED. PT DENIES ANY NEEDS AT THIS TIME. WILL ENDORSE TO AM SHIFT RN FOR PT'S CONTINUITY OF CARE.
--- NOTE | 2019-03-04 07:15 | NUR ---
RECEIVED REPORT FROM NIGHT NURSE. PATIENT IS IN STABLE CONDITION. NO S/S OF DISTRESS NOTED. PICC LINE INTACT AND PATENT. TPN INFUSING @ 70ML/HR, TOLERATING WELL. CALL LIGHT WITHIN REACH. PLANS OF CARE DISCUSSED.
[2019-03-04 08:00] VITALS: BP 98/53
--- NOTE | 2019-03-04 11:00 | NUR ---
WOUND CARE RE-EVALUATION SURGEON DR. CAICEDO PERFORMED WOUND DEBRIDEMENT AND DRESSING CHANGE ON 03/02/19. PATIENT REFUSED WOUND RE-ASSESSMENT AT THIS TIME DUE TO SEVERE PAIN FROM WOUND DEBRIDEMENT ON Thursday03/02/19, PRIMARY RN AT BEDSIDE. PERFORMED TOP SOILED LINING CHANGE WITH PATIENT AND PRIMARY RN. PATIENT TOLERATED WELL. WOUND DRESSINGS ON BLE ARE INTACT, AND DRY WITH DRIED BLOOD VISIBLE. NO CONTINUOUS ACTIVE BLEEDING NOTED ON ANTERIOR WOUND DRESSINGS. PATIENT REFUSED BLE DRESSINGS TO BE TOUCHED, CHANGED, OR REINFORCED AT THIS TIME. MOTHER NOT A BEDSIDE AT THIS TIME. REINFORCED IMPORTANCE OF WOUND DRESSING CHANGES TO PATIENT TO PREVENT INFECTION AND PROMOTE WOUND HEALING. PATIENT VERBALIZED UNDERSTANDING, HOWEVER, CONTINUES TO REFUSED TO BE TOUCHED ON BLE. NOTIFIED TEAR DOWN WORKER, AND MST DIRECTOR, VERBALIZED UNDERSTANDING. ENCOURAGED PATIENT TO EAT AND DRINK MORE FOR HIS MEALS TO PROMOTE WOUND HEALING. PATIENT REINFORCEMENT NEEDED. UNABLE TO MEASURE NOR SEE WOUNDS AT THIS TIME DUE TO PATIENT REFUSING WOUND MANAGEMENT.
[2019-03-04 11:02] LABS: BASOPHILS # (AUTO) 0.1 K/uL (0.00-0.22); BASOPHILS % (AUTO) 1.2 % (0.0-2.0); EOSINOPHILS # (AUTO) 0.6 K/uL (0-0.4); EOSINOPHILS % (AUTO) 8.9 % (0.0-4.0); LYMPHOCYTES # (AUTO) 1.9 K/uL (2.0-11.5); LYMPHOCYTES % (AUTO) 27.6 % (20.5-51.1); MEAN CORPUSCULAR HEMOGLOBIN 29 pg (27-31); MEAN CORPUSCULAR HGB CONC 33 g/dL (33-37); MEAN CORPUSCULAR VOLUME 89.9 fL (80-94); MONOCYTES # (AUTO) 0.9 K/uL (0.8-1.0); NEUTROPHILS # (AUTO) 3.4 K/uL (1.8-7.7); NEUTROPHILS % (AUTO) 49.3 % (42.2-75.2); PLATELET COUNT (AUTO) 399 K/uL (140-450); RED BLOOD CELL COUNT(AUTO) 1.96 MIL/uL (4.20-6.10); WHITE BLOOD COUNT (AUTO) 6.9 K/uL (4.8-10.8)
[2019-03-04 11:15] LABS: MAGNESIUM 1.8 mg/dL (1.8-2.4); PHOSPHORUS 3.7 mg/dL (2.5-4.9)
[2019-03-04 11:17] LABS: ALBUMIN 1.4 g/dL (3.4-5.0); ANION GAP 9.2 (8-16); CARBON DIOXIDE 28.5 mmol/L (21-32); CREATININE 0.9 mg/dL (0.7-1.3); HEMOGLOBIN 5.8 g/dL (12.0-18.0); POTASSIUM 3.7 mmol/L (3.5-5.1); TOTAL BILIRUBIN 0.2 mg/dL (0.0-1.0)
--- NOTE | 2019-03-04 11:17 | NUR ---
RECEIVED CRITICAL LAB HGB 5.8 AND HCT 17.7. WILL NOTIFY DR. GARCIA. PER LAB EVANGELINA THEY WILL CALL BLOOD BANK.
[2019-03-04 11:18] LABS: HEMATOCRIT 17.7 % (36-52)
--- NOTE | 2019-03-04 11:39 | NUR ---
PAGED DR. GARCIA FOR CRITICAL LAB RESULT HGB 5.8 AND HCT 17.7.
[2019-03-04 12:00] VITALS: BP 100/50
--- NOTE | 2019-03-04 12:50 | NUR ---
PAGED DR. GARCIA 2ND ATTEMPT TO REPORT CRITICAL HGB AND HCT LEVEL. CHARGE NURSE MADE AWARE.
[2019-03-04] MEDS: THERAHONEY GEL 42.5 GM TP SCH (13:00)
--- NOTE | 2019-03-04 13:05 | NUR ---
PATIENT IS AWAKE, ALERT AND ORIENTED X4, WATCHING TV AND iPAD. DENIES ANY SOB OR DISCOMFORT. PATIENT MEDICATED FOR PAIN WITH REPORTS FOR TOLERABLE RELIEF OF PAIN FROM DILAUDID.
--- NOTE | 2019-03-04 15:24 | NUR ---
RECEIVED CALL BACK FROM DR. GARCIA WITH ORDERS TO GIVE 3 UNITS OF PACKED RBC, CBC AND CHEM 7 IN AM.
[2019-03-04 16:00] VITALS: BP 92/50
--- NOTE | 2019-03-04 16:12 | NUR ---
PATIENT REPORTS SEVERE PAIN, MEDICATED WITH DILAUDID 2MG IVP ORDERED. PATIENT IS AWAKE, ALERT AND ORIENTED X4. NO RESPIRATORY DISTRESS NOTED. PICC LINE TO RIGHT UPPER ARM INTACT AND PATENT. TPN INFUSING CONTINUOUSLY @ 7OML/HR. TOLERATING WELL. NEEDS MET AT THIS TIME. CALL LIGHT WITHIN REACH.
--- NOTE | 2019-03-04 18:09 | NUR ---
PATIENT IS AWAKE, ALERT AND ORIENTED X4, WATCHING TV AND iPAD. DENIES ANY SOB OR DISCOMFORT. CALL LIGHT WITHIN REACH.
--- NOTE | 2019-03-04 18:51 | NUR ---
PATIENT IN STABLE CONDITION. RECEIVED PAIN MEDICATION FOR SEVERE PAIN. WILL ENDORSE TO NIGHT NURSE FOR CONTINUITY OF CARE.
--- NOTE | 2019-03-04 19:10 | NUR ---
BLOOD BANK CALLED 1 UNIT OF BLOOD IS READY FOR LITIGATION SERVICES MANAGER
--- NOTE | 2019-03-04 19:30 | NUR ---
RECEIVED BEDSIDE REPORT FROM AM SHIFT RN FOR PT'S CONTINUITY OF CARE. PT AAOX4, WATCHING TV, ON TOPPIECE CHOPPER, ON ROOM AIR, HAS RIGHT UPPER ARM PICC LINE WITH 2 PORTS, PAIN LEVEL AT 7/10. PT STATES HE'S FAMILIAR WITH HOSPITAL ENVIRONMENT AND CULL GRADER ROUTINE. INFORMED PT RE: BLOOD TRANSFUSION ORDER BY DR. GARCIA, PT VERBALIZED UNDERSTANDING. SAFETY MEASURES IN PLACE, AND CALL LIGHT IS WITHIN REACH. PT DENIES ANY NEEDS AT THIS TIME. WILL MONITOR PT THROUGHOUT SHIFT.
[2019-03-04] MEDS: DEXTROSE IV SCH ×4 (19:41)
[2019-03-04] MEDS: [UNRECOGNIZED DRUG - OTHER] IV SCH ×4 (19:41)
[2019-03-04] MEDS: MULTIVITAMIN IV SCH ×4 (19:41)
[2019-03-04] MEDS: AMINO ACIDS IV SCH ×4 (19:41)
--- NOTE | 2019-03-04 19:41 | NUR ---
HUNG NEW TPN CONTINUOUS DRIP ORDERED. PT STATES TOLERABLE PAIN LEVEL AT 7/10.
[2019-03-04 20:00] VITALS: BP 94/58
--- NOTE | 2019-03-04 21:45 | NUR ---
1ST UNIT OF PRBC STARTED. VS CHECKED AND CHARTED PER PROTOCOL. PT C/O PAIN, ADMINISTERED PRN IVP PAIN MEDICATION, ADMINISTERED SCHEDULED FENTANYL PATCH ORDERED, PLACED ON RIGHT UPPER SHOULDERS, PER PT'S REQUEST. PT'S NEEDS MET AT THIS TIME. WILL CONTINUE TO MONITOR PT THROUGHOUT TRANSFUSION.
[2019-03-04] MEDS: fentaNYL 0.075 MG/HR PATCH TD SCH (21:51)
[2019-03-05] VITALS: BP 100/53
--- NOTE | 2019-03-05 | NUR ---
PT REFUSED BLOOD GLUCOSE CHECK, REQUESTED TO BE CHECKED WHEN PAIN MEDICATION IS DUE.
[2019-03-05] MEDS: BLOOD GLUCOSE MONITORING 1 DEV DEV FS SCH ×4 (00:30→18:05)
[2019-03-05] MEDS: HYDROmorphone PFS 2 MG/ML SYR IVP PRN ×7 (00:44→23:41)
--- NOTE | 2019-03-05 01:00 | NUR ---
1ST UNIT PRBC TRANSFUSION ENDED AT 0045. VS CHECKED PER PROTOCOL. NO REACTION NOTED. BLOOD GLUCOSE CHECKED AND CHARTED. ADMINISTERED SCHEDULED IV ABX ORDERED. PT C/O PAIN, ADMINISTERED PRN IVP PAIN MEDICATION. PT'S NEEDS MET AT THIS TIME. WILL NOTIFY LAB FOR 2ND UNIT OF PRBC.
[2019-03-05] MEDS: PIPERACILLIN/TAZOBACTAM 3.375 GM in DEXTROSE 5% 50 ML IV SCH ×3 (01:10→11:13)
--- NOTE | 2019-03-05 02:30 | NUR ---
2ND UNIT OF PRBC STARTED. VS CHECKED AND CHARTED PER PROTOCOL. PT DENIES ANY NEEDS AT THIS TIME. WILL CONTINUE TO MONITOR.
--- NOTE | 2019-03-05 03:48 | NUR ---
PT C/O PAIN, ADMINISTERED PRN IVP PAIN MEDICATION ORDERED. PT'S NEEDS MET AT THIS TIME. 2ND UNIT PRBC TRANSFUSING WELL. WILL CONTINUE TO FOLLOW BLOOD TRANSFUSION PROTOCOL.
[2019-03-05 04:00] VITALS: BP 97/31
--- NOTE | 2019-03-05 05:45 | NUR ---
2ND UNIT PRBC TRANSFUSION ENDED. PROTOCOL FOLLOWED. ADMINISTERED SCHEDULED IV ABX ORDERED. PT REQUESTED TO BLOOD SUGAR TO BE CHECKED AND EMPTY COLOSTOMY BAG WHEN PAIN MED IS DUE.
--- NOTE | 2019-03-05 06:48 | NUR ---
PT C/O OF PAIN, ADMINISTERED PRN IVP PAIN MEDICATION ORDERED. EMPTIED OUT COLOSTOMY BAG, 200 ML OUTPUT. BLOOD GLUCOSE CHECKED AND CHARTED. NO COVERAGE NEEDED.
--- NOTE | 2019-03-05 07:15 | NUR ---
ENDORSED PT TO AM SHIFT RN FOR PT'S CONTINUITY OF CARE. PT IS ON STABLE CONDITION. ENDORSED 3RD UNIT OF PRBC READY FOR PHARMACOVIGILANCE SCIENTIST AND TRANSFUSE.
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
[2019-03-05 07:54] LABS: BASOPHILS # (AUTO) 0.1 K/uL (0.00-0.22); BASOPHILS % (AUTO) 1.4 % (0.0-2.0); EOSINOPHILS # (AUTO) 0.7 K/uL (0-0.4); EOSINOPHILS % (AUTO) 9.4 % (0.0-4.0); HEMATOCRIT 22.7 % (36-52); HEMOGLOBIN 7.7 g/dL (12.0-18.0); LYMPHOCYTES # (AUTO) 1.9 K/uL (2.0-11.5); LYMPHOCYTES % (AUTO) 25.4 % (20.5-51.1); MEAN CORPUSCULAR HEMOGLOBIN 30 pg (27-31); MEAN CORPUSCULAR HGB CONC 34 g/dL (33-37); MONOCYTES # (AUTO) 0.9 K/uL (0.8-1.0); NEUTROPHILS # (AUTO) 3.9 K/uL (1.8-7.7); NEUTROPHILS % (AUTO) 51.8 % (42.2-75.2); PLATELET COUNT (AUTO) 368 K/uL (140-450); RED BLOOD CELL COUNT(AUTO) 2.52 MIL/uL (4.20-6.10); RED CELL DISTRIBUTION WIDTH 16.1 % (11.6-13.7); WHITE BLOOD COUNT (AUTO) 7.5 K/uL (4.8-10.8)
[2019-03-05 08:00] VITALS: BP 95/45
[2019-03-05 08:13] LABS: CARBON DIOXIDE 28.4 mmol/L (21-32); CREATININE 0.9 mg/dL (0.7-1.3); POTASSIUM 3.4 mmol/L (3.5-5.1)
--- NOTE | 2019-03-05 09:27 | NUR ---
PATIENT LYING DOWN IN BED SLEEPING, CONDITION UNCHANGED. WILL CONTINUE TO MONITOR.
[2019-03-05] MEDS: THERAHONEY GEL 42.5 GM TP SCH (11:17)
--- NOTE | 2019-03-05 11:31 | NUR ---
PATIENT COMPLAINS OF PAIN ON BLE WOUNDS. DILAUDID GIVEN AT THIS TIME. OTHER SCHEDULED MEDICATIONS DUE GIVEN. WILL CONTINUE TO MONITOR.
[2019-03-05 12:00] VITALS: BP 94/55
[2019-03-05 16:00] VITALS: BP 97/50
--- NOTE | 2019-03-05 16:10 | NUR ---
1 UNIT PRBC COMPLETED. NO REACTIONS NOTED. WILL CONTINUE TO MONITOR.
--- NOTE | 2019-03-05 17:12 | NUR ---
03/05/19 RD FOLLOW UP COMPLETED PLEASE REFER TO NUTRITION ASSESSMENT UNDER CARE ACTIVITY FOR ESTIMATED NUTRITIONAL NEEDS. 1. CONTINUE REGULAR DIET W/ ELECARE AND RODRIGUEZ BID 2. CONTINUE TPN D15%, AA3% @ 70 ML/HR AND LIPIDS 10% 100 ML -CURRENT TPN IS PROVIDING APPROX. 1157 KCAL AND 50.4 G PROTEIN, WHICHMEETS <50% OF ESTIMATED KCAL AND PROTEIN NEEDS 3. ENCOURAGE INCREASING PO INTAKE 4. ENCOURAGE FAMILY MEMBERS TO BRING FOOD/SUPPLEMENTS OF PATIENTS PREFERENCE 5. RD WILL FOLLOW UP 2-3 DAYS, HIGH RISK AIXA DOYLE RD
--- NOTE | 2019-03-05 19:30 | NUR ---
RECEIVED BEDSIDE REPORT FROM ELECTRONIC REPAIR TROUBLESHOOTER RN FOR PT'S CONTINUITY OF CARE. PT IS AAOX4, VERBALIZED FAMILIARITY WITH THE ELECTRONIC REPAIR TROUBLESHOOTER ROUTINE. SAFETY MEASURES IN PLACE AND CALL LIGHT IS WITHIN REACH. PT C/O PAIN, WILL MEDICATE PT.
--- NOTE | 2019-03-05 19:36 | NUR ---
GAVE REPORT TO SUPPORT SERVICE TECH NURSE FOR CONTINUITY OF CARE. PATIENT IN STABLE CONDITION.
[2019-03-05 20:00] VITALS: BP 100/47
[2019-03-05] MEDS: MULTIVITAMIN IV SCH ×4 (20:19)
[2019-03-05] MEDS: [UNRECOGNIZED DRUG - OTHER] IV SCH ×4 (20:19)
[2019-03-05] MEDS: DEXTROSE IV SCH ×4 (20:19)
[2019-03-05] MEDS: AMINO ACIDS IV SCH ×4 (20:19)
--- NOTE | 2019-03-05 20:19 | NUR ---
ADMINISTERED SCHEDULED CONTINUOUS TPN FLUID AT 70ML/HR, SECOND GRADE TEACHER COSIGNED. ADMINISTERED PRN IVP PAIN MEDICATION ORDERED. PT'S NEEDS MET AT THIS TIME.
--- NOTE | 2019-03-05 23:41 | NUR ---
PT C/O SEVERE PAIN. ADMINISTERED PRN IVP PAIN MEDICATION ORDERED. BLOOD GLUCOSE CHECKED AND CHARTED, NO COVERAGE NEEDED. VS CHECKED AND CHARTED. PT REFUSED FOR WOUND DRESSINGS TO BE ASSESSED. REFUSED TO CHANGE SLIGHTLY SOILED LINENS. EMPTIED URINAL. PT'S NEEDS MET AT THIS TIME. WILL CONTINUE TO MONITOR PT.
[2019-03-06] VITALS: BP 110/53
[2019-03-06] MEDS: HYDROmorphone PFS 2 MG/ML SYR IVP PRN ×6 (02:33→20:19)
--- NOTE | 2019-03-06 02:33 | NUR ---
PT C/O SEVERE PAIN. PT MOANING, SHAKING, AND GRUNTING. ADMINISTERED PRN IVP PAIN MEDICATION ORDERED. PT HAD 150ML OF EMESIS, LIQUID AND SOME SOLIDS. WILL CONTINUE TO MONITOR PT.
[2019-03-06 04:00] VITALS: BP 104/55
--- NOTE | 2019-03-06 04:30 | NUR ---
MADE ROUNDS. PT APPEARS TO BE ASLEEP WITH NO SIGNS OF DISTRESS. WILL CONTINUE TO MONITOR PT.
--- NOTE | 2019-03-06 06:10 | NUR ---
PT C/O PAIN. ADMINISTERED IVP PAIN MEDICATION ORDERED. BLOOD GLUCOSE CHECKED AND CHARTED. PT REFUSED CVC DRESSING CHANGE, STATES DIDN'T GET TO SLEEP MUCH LAST NIGHT AND HE REQUESTS FOR DRESSING CHANGE IN AM. PT'S NEEDS MET AT THIS TIME. WILL ENDORSE TO AM SHIFT RN FOR PT'S CONTINUITY OF CARE.
[2019-03-06] MEDS: BLOOD GLUCOSE MONITORING 1 DEV DEV FS SCH ×4 (06:26→18:00)
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
[2019-03-06 08:00] VITALS: BP 104/55
--- NOTE | 2019-03-06 09:25 | NUR ---
PATIENT COMPLAINS OF PAIN, DILAUDID GIVEN AT THIS TIME. REFUSED TO BE TURNED Q2H, TOP LINEN MILD SOILING, OFFERED TO CHANGE IT, PATIENT REFUSED. WILL CONTINUE TO MONITOR.
--- NOTE | 2019-03-06 11:30 | NUR ---
RUARM PICC LINE DRESSING DUE TODAY, PATIENT AWARE. ASKED TO CHANGE CENTRAL LINE DRESSING, PATIENT WANTS TO CHANGE LATER HE WANTS MORE SLEEP PER PATIENT REPORTS. WILL ASK AGAIN LATER
[2019-03-06 11:36] LABS: BASOPHILS # (AUTO) 0.1 K/uL (0.00-0.22); BASOPHILS % (AUTO) 1.3 % (0.0-2.0); EOSINOPHILS # (AUTO) 0.5 K/uL (0-0.4); EOSINOPHILS % (AUTO) 6.5 % (0.0-4.0); HEMOGLOBIN 9.1 g/dL (12.0-18.0); LYMPHOCYTES # (AUTO) 1.9 K/uL (2.0-11.5); LYMPHOCYTES % (AUTO) 25.1 % (20.5-51.1); MEAN CORPUSCULAR HEMOGLOBIN 29 pg (27-31); MEAN CORPUSCULAR HGB CONC 33 g/dL (33-37); MONOCYTES # (AUTO) 0.8 K/uL (0.8-1.0); MONOCYTES % (AUTO) 11.1 % (1.7-9.3); NEUTROPHILS # (AUTO) 4.2 K/uL (1.8-7.7); PLATELET COUNT (AUTO) 433 K/uL (140-450); RED BLOOD CELL COUNT(AUTO) 3.11 MIL/uL (4.20-6.10); RED CELL DISTRIBUTION WIDTH 16.1 % (11.6-13.7); WHITE BLOOD COUNT (AUTO) 7.5 K/uL (4.8-10.8)
[2019-03-06 11:50] LABS: ALBUMIN 1.4 g/dL (3.4-5.0); ANION GAP 8.7 (8-16); CARBON DIOXIDE 30.8 mmol/L (21-32); CREATININE 0.8 mg/dL (0.7-1.3); POTASSIUM 3.5 mmol/L (3.5-5.1); TOTAL BILIRUBIN 0.1 mg/dL (0.0-1.0)
[2019-03-06 12:00] VITALS: BP 104/61
[2019-03-06] MEDS: THERAHONEY GEL 42.5 GM TP SCH (12:27)
--- NOTE | 2019-03-06 12:28 | NUR ---
PATIENT COMPLAINS OF PAIN, DILAUDID GIVEN AT THIS TIME. WILL CONTINUE TO MONITOR.
--- NOTE | 2019-03-06 12:29 | NUR ---
PATIENT REFUSES TO HAVE WOUND ASSESSMENT, THERALONDRAONEY NOT APPLIED TO SACRAL. PATIENT REPORT TOO PAINFUL TO TOUCH. WILL CONTINUE TO MONITOR.
--- NOTE | 2019-03-06 14:15 | NUR ---
ASKED PATIENT AGAIN TO CHANGE PICC LINE DRESSING. PATIENT REFUSED AT THIS TIME AND WANTS AROUND 6-7 PM. WILL ASK AGAIN LATER.
[2019-03-06 16:00] VITALS: BP 109/62
--- NOTE | 2019-03-06 16:01 | NUR ---
PATIENT COMPLAINS OF PAIN. DILAUDID GIVEN AT THIS TIME. WILL CONTINUE TO MONITOR.
--- NOTE | 2019-03-06 17:56 | NUR ---
PATIENT LYING DOWN WITH FAMILY MEMBER AT BEDSIDE. NO DISTRESS NOTED. REFUSED BLOOD GLUCOSE CHECK AT THIS TIME IT HURS PER PATIENT REPORTS AND NEXT PAIN MED DUE IS 1954. ASKED IF I CAN CHANGE PICC LINE DRESSING IT IS DUE TODAY. PATIENT REFUSED AT THIS TIME AND SAID HE WILL ASK NIGHT RN TO DO IT. REINFORCED THAT THE DRESSING CHANGE HAS TO BE DONE TODAY. PATIENT VERBALIZED UNDERSTANDING. WILL CONTINUE TO MONITOR.
--- NOTE | 2019-03-06 19:19 | NUR ---
GAVE REPORT TO AUTOMATIC MOLD SANDER NURSE FOR CONTINUITY OF CARE. PATIENT IN STABLE CONDITION.
--- NOTE | 2019-03-06 19:20 | NUR ---
RECEIVED FROM AM RN IN BED AWAKE AND ALERT. FAMILY MEMBERS VISITING. NO COMPLAINTS AT THIS TIME. CALL LIGHT WITH IN REACH. CARE PLANS FOR THE NIGHT DISCUSSED WITH HIM. NO RESTLESSNESS AT THIS TIME.
[2019-03-06 19:41] VITALS: BP 106/60
[2019-03-06] MEDS: AMINO ACIDS IV SCH ×4 (20:18)
[2019-03-06] MEDS: DEXTROSE IV SCH ×4 (20:18)
[2019-03-06] MEDS: MULTIVITAMIN IV SCH ×4 (20:18)
[2019-03-06] MEDS: [UNRECOGNIZED DRUG - OTHER] IV SCH ×4 (20:18)
--- NOTE | 2019-03-06 23:20 | NUR ---
PT. AT THIS TIME REFUSED TO HAVE PICC LINE DRESSING CHANGED. WILL TRY AGAIN LATER.
[2019-03-07] VITALS (7 sets, daily range): BP systolic 103–114; BP diastolic 55–68
[2019-03-07] MEDS: BLOOD GLUCOSE MONITORING 1 DEV DEV FS SCH ×4 (00:16→18:00)
[2019-03-07] MEDS: HYDROmorphone PFS 2 MG/ML SYR IVP PRN ×8 (00:16→21:52)
--- NOTE | 2019-03-07 02:51 | NUR ---
SLEEPING. CALL LIGHT WITH IN REACH. NO SOB.TELEMETRY MONITORING.
--- NOTE | 2019-03-07 03:16 | NUR ---
AWAKE AT THIS TIME AND REQUESTED FOR PAIN RELIEVER. ABLE TO VERBALIZE NEEDS WELL. ENCOURAGED TO CALL ME BY MY PHONE FOR ANY NEEDS HE HAVE. ATTENDED TO BY CNAS. WILL MEDICATE WITH DILAUDID IVP REQUESTED AND ORDERED.
--- NOTE | 2019-03-07 06:40 | NUR ---
PT. AWAKE AND REQUESTED FOR PAIN RELIEVER. GOOD AFFECT. EXCITED TO GO TO A HIGHER LEVEL OF CARE PLANNED FOR TODAY OR TOMORROW. ALL NEEDS ANTICIPATED AND MET. TELEMETRY MONITORING. TPN INFUSING WELL . PORTS FLUSHED WITH 10 ML NS.
--- NOTE | 2019-03-07 07:24 | NUR ---
ENDORSED TO THE NEXT RN FOR CONTINUITY OF CARE. SLEEPING.
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
[2019-03-07 08:08] LABS: ANION GAP 9.2 (8-16); CARBON DIOXIDE 29.3 mmol/L (21-32); CREATININE 0.8 mg/dL (0.7-1.3); POTASSIUM 3.5 mmol/L (3.5-5.1)
--- NOTE | 2019-03-07 09:39 | NUR ---
PATIENT COMPLAINS OF PAIN, DILAUDID GIVEN AT THIS TIME. ASKED FOR PICC LINE DRESSING CHANGE, HE SAID UPON NEXT PAIN MEDICATION HE WANTS TO SLEEP. WILL CONTINUE TO MONITOR.
--- NOTE | 2019-03-07 11:00 | NUR ---
PATIENT LYING DOWN IN BED, SLEEPING, AROUSABLE BY VOICE. NO DISTRESS NOTED. CONDITION UNCHANGED. WILL CONTINUE TO MONITOR.
--- NOTE | 2019-03-07 12:40 | NUR ---
PATIENT COMPLAINS OF PAIN, DILAUDID GIVEN. ASKED TO CHANGE PICC LINE DRESSING AGAIN, PATIENT REFUSES AND WANTS UPON NEXT PAIN MED DUE, TO CHANGE SOON THE DILAUDID IS GIVEN. WILL CONTINUE TO MONITOR.
[2019-03-07] MEDS: THERAHONEY GEL 42.5 GM TP SCH (13:00)
--- NOTE | 2019-03-07 16:19 | NUR ---
PATIENT SITTING DOWN IN BED WITH COMPLAINTS OF PAIN. DILAUDID GIVEN AT THIS TIME. RUARM PICC LINE DRESSING CHANGED PERFORMED USING STERILE TECHNIQUE. LEUR LOCKS CAPS CHANGED. PATIENT TOLERATED PROCEDURE WELL. WILL CONTINUE TO MONITOR.
--- NOTE | 2019-03-07 18:59 | NUR ---
PATIENT COMPLAINS OF PAIN, DILAUDID GIVEN AT THIS TIME. WILL CONTINUE TO MONITOR.
--- NOTE | 2019-03-07 19:13 | NUR ---
GAVE REPORT TO SALESPERSON [place] AND GLASSWARE NURSE FOR CONTINUITY OF CARE. PATIENT IN STABLE CONDITION.
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
[2019-03-07] MEDS: AMINO ACIDS IV SCH ×4 (19:30)
[2019-03-07] MEDS: [UNRECOGNIZED DRUG - OTHER] IV SCH ×4 (19:30)
[2019-03-07] MEDS: DEXTROSE IV SCH ×4 (19:30)
[2019-03-07] MEDS: MULTIVITAMIN IV SCH ×4 (19:30)
--- NOTE | 2019-03-07 21:52 | NUR ---
REMOVE OLD FENTANYL PATCHES, AND PUT NEW PATCHES. PT C/O 09/18 PAIN, GIVEN DILAUDID MD ORDERED. PT TOLERATED WELL.
[2019-03-07] MEDS: fentaNYL 0.075 MG/HR PATCH TD SCH (21:55)
--- NOTE | 2019-03-07 23:55 | NUR ---
VS CHECKED, WITHIN PT'S BASELINE. WILL CONTINUE TO MONITOR.
[2019-03-08] VITALS: BP 109/55
[2019-03-08] MEDS: HYDROmorphone PFS 2 MG/ML SYR IVP PRN ×5 (00:54→12:26)
--- NOTE | 2019-03-08 00:54 | NUR ---
PT C/O 09/18 PAIN, GIVEN DILAUDID MD ORDERED. PT TOLERATED WELL.
[2019-03-08] MEDS: BLOOD GLUCOSE MONITORING 1 DEV DEV FS SCH ×3 (00:58→12:27)
--- NOTE | 2019-03-08 01:00 | NUR ---
PT REFUSED TO BE ASSESSED FOR WOUND DUE TO PAIN.
--- NOTE | 2019-03-08 02:01 | NUR ---
PT SLEEPING IN BED. COMFORTABLY. NO ACUTE DISTRESS NOTED.
--- NOTE | 2019-03-08 03:53 | NUR ---
PT C/O 09/18 PAIN, GIVEN DILAUDID MD ORDERED. PT TOLERATED WELL.
[2019-03-08 04:00] VITALS: BP 103/59
--- NOTE | 2019-03-08 06:27 | NUR ---
BS CHECKED, 96. NO INSULIN COVERAGE NEEDED.
--- NOTE | 2019-03-08 07:13 | NUR ---
RECEIVED BEDSIDE SHIFT REPORT FROM RECORDS MANAGEMENT SPECIALIST NURSE FOR CONTINUATION OF CARE. POSSIBLE TRANSFER TO [facility] TODAY PER CM/SW. LAST PAIN MEDICATION WAS GIVEN AT 0654. PATIENT IS RESTING IN BED, BED IN LOW POSITION, TPN RUNNING. NO DISTRESS NOTED AT THIS TIME. PLAN OF CARE REVIEWED WITH PATIENT, PATIENT VERBALIZED UNDERSTANDING. WILL CONTINUE TO MONITOR.
[2019-03-08 08:00] VITALS: BP 92/49
--- NOTE | 2019-03-08 09:00 | NUR ---
[facility] NARES SWABS FOR DISCHARGE COLLECTED AND SENT TO LAB
[2019-03-08 09:19] LABS: BASOPHILS # (AUTO) 0.1 K/uL (0.00-0.22); BASOPHILS % (AUTO) 1.1 % (0.0-2.0); EOSINOPHILS # (AUTO) 0.5 K/uL (0-0.4); EOSINOPHILS % (AUTO) 6.6 % (0.0-4.0); HEMATOCRIT 28.2 % (36-52); HEMOGLOBIN 9.2 g/dL (12.0-18.0); LYMPHOCYTES # (AUTO) 2.1 K/uL (2.0-11.5); LYMPHOCYTES % (AUTO) 30.3 % (20.5-51.1); MEAN CORPUSCULAR HEMOGLOBIN 30 pg (27-31); MEAN CORPUSCULAR HGB CONC 33 g/dL (33-37); MEAN CORPUSCULAR VOLUME 91.7 fL (80-94); MONOCYTES # (AUTO) 0.7 K/uL (0.8-1.0); MONOCYTES % (AUTO) 10.8 % (1.7-9.3); NEUTROPHILS # (AUTO) 3.5 K/uL (1.8-7.7); NEUTROPHILS % (AUTO) 51.2 % (42.2-75.2); PLATELET COUNT (AUTO) 421 K/uL (140-450); RED BLOOD CELL COUNT(AUTO) 3.08 MIL/uL (4.20-6.10); RED CELL DISTRIBUTION WIDTH 16.1 % (11.6-13.7); WHITE BLOOD COUNT (AUTO) 6.9 K/uL (4.8-10.8)
--- NOTE | 2019-03-08 10:00 | NUR ---
PATIENT IS RESTING IN BED, DISCHARGE ORDER PLACED, EDUCATED ON THE DISCHARGE SUMMARY AND WHAT TYPE OF CARE TO EXPECT FROM [facility]. REPORT GIVEN TO SARAHY CAPPS FROM UNIT 1, THE PATIENT WILL BE GOING TO BED 108B. PATIENT WAS GIVEN PAIN MEDICATIONS, TOLERATED WELL. BED IN LOW POSITION CALL LIGHT ON AND WITHIN REACH. WILL CONTINUE TO MONITOR.
[2019-03-08 10:33] LABS: ALBUMIN 1.5 g/dL (3.4-5.0); ANION GAP 10.2 (8-16); CARBON DIOXIDE 29.3 mmol/L (21-32); CREATININE 0.8 mg/dL (0.7-1.3); POTASSIUM 3.5 mmol/L (3.5-5.1); TOTAL BILIRUBIN 0.1 mg/dL (0.0-1.0)
[2019-03-08 12:00] VITALS: BP 115/61
--- NOTE | 2019-03-08 12:30 | NUR ---
BLOOD SUGAR CHECKED, 102, NO COVERAGE NEEDED. RESTING IN BED, PAIN MEDICATIONS GIVEN, TOLERATED WELL, PATIENT WAS GETTING ANXIOUS DUE TO LINEN CHANGE, DR. DOBSON CALLED AND ORDERED 1 MG ATIVAN IV PUSH Q6 PRN. BED IN LOW POSITION, CALL LIGHT ON AND WITHIN REACH. WILL CONTINUE TO MONITOR.
[2019-03-08] MEDS: THERAHONEY GEL 42.5 GM TP SCH (13:00)
[2019-03-08] MEDS ORDERED: LORazepam 2 MG/ML VIAL IVP PRN (13:25)
--- NOTE | 2019-03-08 15:15 | NUR ---
PATIENT DISCHARGE EDUCATION PROVIDED, PATIENT AND PATIENTS MOTHER VERBALIZED UNDERSTANDING. BELONGINGS CHECKED AND ACCOUNTED FOR, TELE MONITOR REMOVED FROM PATIENT, DISCONNECTED FROM TPN. PICC LEFT IN PLACE. VITAL SIGNS STABLE. NO QUESTIONS AT THIS TIME. [facility] FOR TRANSPORT. REPORT GIVEN TO ACCEPTING RN FROM [facility] RN. PAPERWORK SIGNED. PATIENT WAS DISCHARGED FROM [facility].
== END 2019-03-08 15:15 | DRG 361 ==
LOC: MTU 19:10 → UNDOADMIN 19:10 → MTU 22:00 → MLD 09-11 16:52 → MIC 09-11 17:00 → MTU 09-17 19:30
PROVIDERS: ADMIT Internal Medicine Pulmonary Disease; ATTEND Internal Medicine Pulmonary Disease
PROC: 0JBN0ZZ Excision of Right Lower Leg Subcutaneous Tissue and Fascia, Open Approach (ICD-10-PCS; 2018-09-09)
PROC: 0JBP0ZZ Excision of Left Lower Leg Subcutaneous Tissue and Fascia, Open Approach (ICD-10-PCS; principal; 2018-09-09 12:30)
PROC: 30233N1 Transfusion of Nonautologous Red Blood Cells into Peripheral Vein, Percutaneous Approach (ICD-10-PCS; 2018-09-13)
PROC: 0HD6XZZ Extraction of Back Skin, External Approach (ICD-10-PCS; 2018-10-27)
PROC: 0HDLXZZ Extraction of Left Lower Leg Skin, External Approach (ICD-10-PCS; 2018-10-27)
PROC: 0HDKXZZ Extraction of Right Lower Leg Skin, External Approach (ICD-10-PCS; 2018-10-27)
PROC: 0JBN0ZZ Excision of Right Lower Leg Subcutaneous Tissue and Fascia, Open Approach (ICD-10-PCS; 2018-11-26)
PROC: 0JBP0ZZ Excision of Left Lower Leg Subcutaneous Tissue and Fascia, Open Approach (ICD-10-PCS; 2018-11-26)
PROC: 0HB6XZZ Excision of Back Skin, External Approach (ICD-10-PCS; 2019-02-08)
PROC: 0HBLXZZ Excision of Left Lower Leg Skin, External Approach (ICD-10-PCS; 2019-02-08)
PROC: 0HBKXZZ Excision of Right Lower Leg Skin, External Approach (ICD-10-PCS; 2019-02-08)
PROC: 0HBLXZZ Excision of Left Lower Leg Skin, External Approach (ICD-10-PCS; 2019-02-16)
PROC: 0HBKXZZ Excision of Right Lower Leg Skin, External Approach (ICD-10-PCS; 2019-02-16)
PROC: 0HBLXZZ Excision of Left Lower Leg Skin, External Approach (ICD-10-PCS; 2019-02-23)
PROC: 0HBKXZZ Excision of Right Lower Leg Skin, External Approach (ICD-10-PCS; 2019-02-23)
PROC: 0HBLXZZ Excision of Left Lower Leg Skin, External Approach (ICD-10-PCS; 2019-03-02)
PROC: 0HBKXZZ Excision of Right Lower Leg Skin, External Approach (ICD-10-PCS; 2019-03-02)
DX: L89.154 Pressure ulcer of sacral region, stage 4 (principal); A41.1 Sepsis due to other specified staphylococcus; E43 Unspecified severe protein-calorie malnutrition; K31.6 Fistula of stomach and duodenum; J18.9 Pneumonia, unspecified organism; I96 Gangrene, not elsewhere classified; N17.9 Acute kidney failure, unspecified; R64 Cachexia; T82.7XXA Infection and inflammatory reaction due to other cardiac and vascular devices, implants and grafts, initial encounter; Z86.74 Personal history of sudden cardiac arrest; L97.919 Non-pressure chronic ulcer of unspecified part of right lower leg with unspecified severity; L97.929 Non-pressure chronic ulcer of unspecified part of left lower leg with unspecified severity; L02.215 Cutaneous abscess of perineum; Y95 Nosocomial condition; F43.10 Post-traumatic stress disorder, unspecified; D63.8 Anemia in other chronic diseases classified elsewhere; F41.1 Generalized anxiety disorder; F32.9 Major depressive disorder, single episode, unspecified; D50.0 Iron deficiency anemia secondary to blood loss (chronic); G89.21 Chronic pain due to trauma; F29 Unspecified psychosis not due to a substance or known physiological condition; B37.9 Candidiasis, unspecified; Y84.8 Other medical procedures as the cause of abnormal reaction of the patient, or of later complication, without mention of misadventure at the time of the procedure; Z16.24 Resistance to multiple antibiotics; Z89.511 Acquired absence of right leg below knee; Z98.1 Arthrodesis status; Z91.011 Allergy to milk products; Z91.018 Allergy to other foods; Z68.1 Body mass index [BMI] 19.9 or less, adult; Z93.3 Colostomy status
CPT/HCPCS: 36415; 71045; 80048; 80053; 80076; 80200; 80202; 81001; 81003; 82040; 82247; 82948; 83735; 84100; 85018; 85025; 85610; 85730; 86886; 86900; 86901; 86920; 87040; 87070; 87075; 87081; 87086; 87186; 87205; 88304; 93925; 93970; A4371; A9153; C1751; J0610; J0770; J1170; J1815; J1885; J2001; J2060; J2175; J2185; J2248; J2250; J2405; J2543; J2704; J2997; J3010; J3260; J3370; J3475; J3480; J3490; J7030; J7042; J7060; J7120; P9016; P9041; P9046; Q0092